=== PATIENT | female | born 1945 | race Caucasian/White ===

== ENCOUNTER 2017-06-03 08:43 | Emergency (ER) | payer MEDICARE, OTHER ==
[~2017-06-03] VITALS: Ht 157.5 cm; Wt 91.7 kg
[~2017-06-03 08:43] MED LIST: AC500T PO; ACIPHEX 20MG PO; ALB0.5V INH; ALBU8.5H2 IH; ALLO100T PO; ALPR.5T PO; AMOX1TAB11 PO; ASP325TEC; ASP81TEC PO; ASPI-892 PO; BIOT5TAB PO; BPR150TCR; BUPR300T; Biotin; CARV12.52; CARV3.12 PO; CARV6.25; CHLO473M4 MM; CLC500CT PO; CLD600T PO; CLPD75T; CLPD75T PO; COREG CR; CRESTOR; CRESTOR40 MG PO; DCS100C PO; DESV100T PO; DRON400T PO; DRON400T2 PO; ESCT10T; ESTRADIAL; FENT1PAT59 TD; FLUT12AE4 IH; FLUT16SP22 NSEACH; FRSM40T; FURO20TA4 PO; FURO40TA4 PO; Fluticasone Propionate NS; GLUC-113 PO; HYDR-2890 PO; HYDR-3458 PO; HYDR-753 PO; IBAN150T5 PO; IBP800T; IBP800T PO; ISOS30TA3 PO; LACT1CAP62 PO; LD5O35 TP; LEVO750T9 PO; LVT.1T; LVT.1T PO; MAGN400C PO; MELO15TA39 PO; MGX400T PO; MULT1TAB63; MULT1TAB63 PO; NEBI2.5T5 PO; NIAC1000 PO; NIAC1TBM21 PO; NIACIN; NPD5OP OS; OMG1KC PO; POTA10TA36 PO; POTA20PA3 PO; POTA20TA15 PO; POTA40LI PO; POTASSIUM; PRED10TA PO; PROP1TAB77; PROP1TAB77 PO; PSEUDOEPHEDRINE PO; Prednisone PO; QUIN324C PO; RIVA20TA PO; RMP5C; ROSU20TA14 PO; RT-ADVAIR1 IH; RT-ALBUINH IH; TRAM-21 PO; TRM50T; ZALE10CA PO; [UNRECOGNIZED DRUG - OTHER]; [UNRECOGNIZED DRUG - OTHER]; [UNRECOGNIZED DRUG - OTHER] PO; acidophilus; calcium; vytorin
[2017-06-03] MEDS ORDERED: RT-ALBUTEROL/IPRATROPIUM 3 ML (DUONEB) VIAL INH ONE (09:00)
[2017-06-03 09:06] LABS: BASOPHILS % (AUTO) 0 % (0-10); EOSINOPHILS # (AUTO) 0.3 10^3/uL (0.0-0.3); EOSINOPHILS % (AUTO) 4 % (0-10); LYMPHOCYTES # (AUTO) 1.7 X 10^3 (1.0-4.0); LYMPHOCYTES % (AUTO) 23 % (12-44); MEAN CORPUSCULAR HEMOGLOBIN 31 PG (25-34); MEAN CORPUSCULAR HGB CONC 33 G/DL (32-36); MEAN CORPUSCULAR VOLUME 93 FL (80-99); MEAN PLATELET VOLUME 9.7 FL (7.4-10.4); MONOCYTES # (AUTO) 0.7 X 10^3 (0.0-1.0); MONOCYTES % (AUTO) 10 % (0-12); NEUTROPHILS # (AUTO) 4.6 X 10^3 (1.8-7.8); NEUTROPHILS % (AUTO) 62 % (42-75); PLATELET COUNT 178 10^3/uL (130-400); RED BLOOD COUNT 3.95 10^6/uL (4.35-5.85); WHITE BLOOD COUNT 7.4 10^3/uL (4.3-11.0)
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
[2017-06-03 09:17] LABS: INR 1.6 (0.8-1.4); PROTHROMBIN TIME PATIENT 18.3 SEC (12.2-14.7)
[2017-06-03] MEDS ORDERED: RT-ALBUTEROL SULF 2.5 MG/3 ML PRE-MIX VIAL INH STA ×2 (09:22→09:38)
[2017-06-03 09:26] LABS: BILIRUBIN,TOTAL 0.5 MG/DL (0.1-1.0); CALCIUM 9.7 MG/DL (8.5-10.1); CREATININE SERUM 1.46 MG/DL (0.60-1.30); POTASSIUM 3.7 MMOL/L (3.6-5.0); TOTAL PROTEIN 6.8 GM/DL (6.4-8.2)
--- NOTE | 2017-06-03 09:26 | Diagnostic Imaging Report ---
Portable upright radiograph of the chest. INDICATION: Shortness of breath and cough. FINDINGS: The lungs are clear. The heart size is moderately enlarged. No effusion or pneumothorax. The mediastinum and cheri appear unremarkable. Sternotomy wires and post CABG changes are seen. IMPRESSION: Cardiomegaly. No significant vascular congestion. Dictated by: Dictated on workstation # [id number]
[2017-06-03] MEDS ORDERED: DEXAMETHASONE 4 MG/ML SDV (DECADRON) IH ONE (09:45)
[2017-06-03 11:00] LABS: BILIRUBIN,URINE NEGATIVE (NEGATIVE); KETONES,URINE NEGATIVE (NEGATIVE); LEUKOCYTE ESTERASE ,URINE 1+ (NEGATIVE); NITRITE,URINE NEGATIVE (NEGATIVE); PH,URINE 7 (5-9); PROTEIN,URINE NEGATIVE (NEGATIVE); UROBILINOGEN,URINE NORMAL (NORMAL)
[2017-06-03 11:14] LABS: WBC,URINE RARE /HPF
[2017-06-03 11:15] LABS: SQUAMOUS EPITHELIAL CELL,UR RARE /HPF
[2017-06-03] MEDS ORDERED: PRD20T PO (11:54)
[2017-06-03] MEDS ORDERED: LEVO500T80 PO (11:54)
[2017-06-03 12:03] VITALS: BP 114/52
[2017-06-03] MEDS ORDERED: CEFD300C3 PO (12:03)
== END 2017-06-03 12:03 | disposition home or self-care (01) ==
LOC: EDUNIT# 08:43 → ER 08:45
DX: J01.90 Acute sinusitis, unspecified (principal); J40 Bronchitis, not specified as acute or chronic; F32.9 Major depressive disorder, single episode, unspecified; E03.9 Hypothyroidism, unspecified; M81.0 Age-related osteoporosis without current pathological fracture; K21.9 Gastro-esophageal reflux disease without esophagitis; I25.10 Atherosclerotic heart disease of native coronary artery without angina pectoris; I48.91 Unspecified atrial fibrillation; J44.9 Chronic obstructive pulmonary disease, unspecified; Z95.1 Presence of aortocoronary bypass graft; Z90.710 Acquired absence of both cervix and uterus; Z96.649 Presence of unspecified artificial hip joint; Z86.73 Personal history of transient ischemic attack (TIA), and cerebral infarction without residual deficits; Z87.442 Personal history of urinary calculi; Z96.651 Presence of right artificial knee joint; Z87.2 Personal history of diseases of the skin and subcutaneous tissue; Z87.891 Personal history of nicotine dependence
CPT/HCPCS: 36415; 71010; 80053; 81000; 83605; 85025; 85610; 85730; 87040; 93005; 94640

== ENCOUNTER 2017-09-04 12:37 | Emergency (ER) | payer MEDICARE, OTHER ==
[~2017-09-04] VITALS: Ht 157.5 cm; Wt 91.7 kg
[~2017-09-04 12:37] MED LIST changes: +CEFD300C3 PO; +LEVO500T80 PO; +PRD20T PO; +fentaNYL INJECTION 100 MCG/2 ML AMP ONE
[2017-09-04] MEDS ORDERED: NS IV 1000 ML 1,000 ML IV ONE (12:42)
[2017-09-04] MEDS ORDERED: fentaNYL INJECTION 100 MCG/2 ML AMP IVP STA ×2 (12:42→13:08)
--- OUTSIDE RECORDS SUMMARY | 2017-09-04 12:44 | XMS REPORT | Continuity of Care Document ---
Author Author [employer] Organization [facility] Address Unknown Phone Unavailable Care Team Providers Care Vp Clinical Name Role Phone [employer] Unavailable Unavailable Problems Medications Allergies, Adverse Reactions, Alerts Immunizations Results Vital Signs Encounters Location Location Details Encounter Type Encounter Number Reason For Visit Attending Provider ADM Date DC Date Status Source OUTPATIENT [id number] ANA FATIMA 05/24/2017 Active [facility] O Active [facility] Procedures Plan of Care Social History Assessment and Plan Family History Value Date Source Advance Directives Order Name Results Value Date Source
[2017-09-04] MEDS ORDERED: TETANUS,DIPTH,PERTUSS P/F (BOOSTRIX) 0.5 ML VIAL IM ONE (12:45)
--- OUTSIDE RECORDS SUMMARY | 2017-09-04 12:46 | XMS REPORT | Encounter Summary ---
Author Author [facility] Organization [facility] Address Unknown Phone Unavailable Care Team Providers Care Brick Cleaner Name Role Phone PCP Unavailable Reason for Visit * Reason Comments Medication Follow-up Encounter Details Date Type Department Care Team Description 09/02/2017 Telephone [facility] Cardiology Ana Thomas RN Medication Follow-up [id number] [place] [address] Social History Tobacco Use Types Packs/Day Years Used Date Former Smoker Quit: 02/01/2007 Smokeless Tobacco: Never Used Alcohol Use Drinks/Week oz/Week Comments No Sex Assigned at Date Recorded Not on file as of this encounter Functional Status Functional Status Response Date of Assessment Does the patient have a hearing impairment: No 07/10/2016 Does the patient have a visual impairment: Yes 07/10/2016 Does the patient have impaired ambulation: No 07/10/2016 Does the patient have an activity of daily living No 07/10/2016 (ADL) impairment: Does the patient have an instrumental activity of No 07/10/2016 daily living (IADL) impairment: Cognitive Status Response Date of Assessment Does the patient have a cognitive impairment: No 07/10/2016 as of this encounter Miscellaneous Notes * Telephone Encounter - Ana Thomas RN - 09/02/2017 12:37 PM FISH FARM MANAGER Formatting of this note may be different from the original. Yolette Biswas Nurse Ep Patient reports she is doing good. Called patient back. She stated that she is taking Multaq and Xarelto and is doing well. She has cut Imdur in half to 15 mg daily because her excel analyst was concerned about her low BP, she has had no increase in chest pain since decreasing Imdur dose. Will notify MPE of this. * Telephone Encounter - Ana Thomas RN - 09/02/2017 7:57 AM FISH FARM MANAGER LM for patient to call back. Will need to send MPE a text page once patient calls back. * Telephone Encounter - Ana Thomas RN - 09/02/2017 7:57 AM FISH FARM MANAGER Formatting of this note may be different from the original. ----- Message from Tom Miller MD sent at 09/01/2017 5:31 PM FISH FARM MANAGER ----- Please call pt and see how she is doing re: Her prior long-standing diarrhea. Also please see if she is taking Multaq or not. Then please text page me to let me know if Ms. Huber is taking the Multaq or not. Thank you. Tmo Miller MD P [facility] Nurse Ep This is the second message I have sent re: Pt--please see prior one before calling her. But when she is called please also inquire re: Her anticoagulation--still on Xarelto. Thank you--please text page me the response. in this encounter Plan of Treatment Not on fileas of this encounter Visit Diagnoses Not on filein this encounter
--- OUTSIDE RECORDS SUMMARY | 2017-09-04 12:46 | XMS REPORT | Clinical Summary ---
Author Author [facility] Organization [facility] Address Unknown Phone Unavailable Care Team Providers Care Curriculum Designer Name Role Phone PCP Unavailable Source Comments Some departments are not documenting in the electronic medical record. If you do not see the information that you expected, contact Release of Information in the Health Information Management department at [phone] for further assistance in locating additional records.[facility] Allergies Active Allergy Reactions Severity Noted Date Comments Niacin HIVES, RASH Medium 03/06/2016 Clarithromycin HIVES 03/24/2014 Erythromycin HIVES 03/24/2014 Current Medications Prescription Sig. Disp. Refills Start End Date Status Date ibandronate(+) (BONIVA) Take 150 mg by mouth Active 150 mg tablet every 30 days. levothyroxine (SYNTHROID) Take 50 mcg by mouth Active 100 mcg tablet daily. MULTIVITAMIN PO Take 1 Tab by mouth Active daily. nebivolol (BYSTOLIC) 2.5 Take 2.5 mg by mouth Active mg tab tablet daily. rosuvastatin (CRESTOR) 40 Take 40 mg by mouth Active mg tablet daily. dronedarone (MULTAQ) 400 Take 1 Tab by mouth twice 180 Tab 3 05/17/20 Active mg tablet daily with meals. 14 isosorbide mononitrate SR Take 15 mg by mouth every Active (IMDUR) 30 mg tablet morning. rivaroxaban (XARELTO) 20 Take 1 Tab by mouth daily 30 Tab 1 09/28/20 Active mg tab tabletIndications: with dinner. 15 PAT (paroxysmal atrial tachycardia) (HCC), Palpitations magnesium oxide (MAG-OX) Take 1 Tab by mouth twice 60 Tab 0 12/23/19 Active 400 mg tabletIndications: daily. 16 Palpitations, PAT (paroxysmal atrial tachycardia) ([facility]) allopurinol (ZYLOPRIM) Take 300 mg by mouth Active 100 mg tablet daily. Take with food. duloxetine DR (CYMBALTA) Take 60 mg by mouth at Active 30 mg capsule bedtime daily. Active Problems Problem Noted Date CVA (cerebral vascular accident) ([facility]) 09/01/2017 Paroxysmal atrial fibrillation ([facility]) 09/01/2017 Coronary artery disease involving [place] coronary artery without angina 02/2017 pectoris Essential hypertension 09/01/2017 Acquired scoliosis 07/10/2016 Degenerative disc disease, lumbar 07/10/2016 Intermittent claudication ([facility]) 03/06/2016 Palpitations 09/27/2014 PAT (paroxysmal atrial tachycardia) ([facility]) 09/27/2014 Encounters Date Type Specialty Care Team Description 09/02/2017 Telephone Cardiology Ana Thomas RN Medication Follow- up 07/12/2017 Documentation Cardiology Yolette Lawler Labs Only ( Historical ) from Last 3 Months Family History Medical History Relation Name Comments Coronary Artery Disease Brother Coronary Artery Disease Father Heart Failure Mother Relation Name Status Comments Brother Alive Father Mother Social History Tobacco Use Types Packs/Day Years Used Date Former Smoker Quit: 02/01/2007 Smokeless Tobacco: Never Used Alcohol Use Drinks/Week oz/Week Comments No Sex Assigned at Date Recorded Not on file Last Filed Vital Signs Vital Sign Reading Time Taken Blood Pressure 108/62 05/24/2017 3:09 PM CDT Pulse 67 05/24/2017 3:09 PM CDT Temperature 36.4 C (97.6 F) 07/10/2016 11:46 AM CDT Respiratory Rate 18 07/10/2016 11:46 AM CDT Oxygen Saturation 98% 05/24/2017 3:09 PM CDT Inhaled Oxygen - - Concentration Weight 79.4 kg (175 lb 1.6 oz) 05/24/2017 3:09 PM CDT Height 157.5 cm (5' 2") 05/24/2017 3:09 PM CDT Body Mass Index 32.03 05/24/2017 3:09 PM CDT Plan of Treatment Health Maintenance Due Date Last Done Comments HEPATITIS C SCREENING 1945 PHYSICAL (COMPREHENSIVE) 1953 EXAM PERTUSSIS VACCINE 1957 TETANUS VACCINE 1963 BREAST CANCER SCREENING 1986 COLORECTAL CANCER 1996 SCREENING SHINGLES VACCINE 2006 OSTEOPOROSIS SCREENING 2011 PREVNAR/PNEUMOVAX (#1) 2011 INFLUENZA VACCINE 05/28/2017 Results * CBC (07/10/2017) Component Value Ref Range White Blood Cells 4.88 (L) 5.00 - 10.00 RBC 4.19 Hemoglobin 13.1 Hematocrit 39.6 MCV 94.5 MCH 31.3 (H) 27.0 - 31.0 MCHC 33.1 Platelet Count 181 MPV RDW 14.8 Specimen Performing Laboratory Blood OTHER OUTSIDE LAB * THYROID STIMULATING HORMONE-TSH (07/10/2017) Component Value Ref Range TSH 5.56 (H) Specimen Performing Laboratory Blood OTHER OUTSIDE LAB * LIPID PROFILE (07/10/2017) Component Value Ref Range Cholesterol 174 Triglycerides 73 HDL 74.0 LDL 85 VLDL Non HDL Cholesterol Cholesterol/HDL Ratio 2.4 Specimen Performing Laboratory Blood OTHER OUTSIDE LAB * COMPREHENSIVE METABOLIC PANEL (07/10/2017) Component Value Ref Range Sodium 142 Potassium 4.1 Chloride 103 CO2 31.0 Blood Urea Nitrogen 12 Creatinine 0.8 Glucose 94 Calcium 9.2 Total Protein 6.3 Total Bilirubin 0.6 Albumin 3.9 Alk Phosphatase 92 AST (SGOT) 20 ALT (SGPT) 14 eGFR Non 71 eGFR Anion Gap 12 Specimen Performing Laboratory [facility] [address] , [address] [place] [address] from Last 3 Months
--- OUTSIDE RECORDS SUMMARY | 2017-09-04 12:46 | XMS REPORT | Encounter Summary ---
Author Author [facility] Organization [facility] Address Unknown Phone Unavailable Care Team Providers Care Patient Information Coordinator Name Role Phone PCP Unavailable Reason for Visit * Reason Comments Labs Only Historical Encounter Details Date Type Department Care Team Description 07/12/2017 Documentation [facility] Yolette Lawler Labs Only (Historical ) [address] [place] [address] Social History Tobacco Use Types Packs/Day Years [...] impairment: No 07/10/2016 as of this encounter Plan of Treatment Not on fileas of this encounter Results * THYROID STIMULATING HORMONE-TSH (07/10/2017) Component Value Ref Range TSH 5.56 (H) Specimen Performing Laboratory Blood OTHER OUTSIDE LAB * CBC (07/10/2017) Component Value Ref Range [...] 12 Specimen Performing Laboratory Blood [facility] [employer] [address] [facility] , [address] [place] [address] in this encounter Visit Diagnoses Not on filein this encounter
[2017-09-04 12:53] LABS: BASOPHILS % (AUTO) 1 % (0-10); EOSINOPHILS # (AUTO) 0.3 10^3/uL (0.0-0.3); EOSINOPHILS % (AUTO) 5 % (0-10); LYMPHOCYTES # (AUTO) 2.4 X 10^3 (1.0-4.0); LYMPHOCYTES % (AUTO) 41 % (12-44); MEAN CORPUSCULAR HEMOGLOBIN 31 PG (25-34); MEAN CORPUSCULAR HGB CONC 32 G/DL (32-36); MEAN CORPUSCULAR VOLUME 96 FL (80-99); MEAN PLATELET VOLUME 9.4 FL (7.4-10.4); MONOCYTES # (AUTO) 0.6 X 10^3 (0.0-1.0); MONOCYTES % (AUTO) 11 % (0-12); NEUTROPHILS # (AUTO) 2.6 X 10^3 (1.8-7.8); NEUTROPHILS % (AUTO) 44 % (42-75); PLATELET COUNT 204 10^3/uL (130-400); RED CELL DISTRIBUTION WIDTH 14.1 % (10.0-14.5); WHITE BLOOD COUNT 5.9 10^3/uL (4.3-11.0)
[2017-09-04 13:02] LABS: INR 1.2 (0.8-1.4); PROTHROMBIN TIME PATIENT 15.2 SEC (12.2-14.7)
[2017-09-04 13:10] LABS: ALANINE AMINOTRANSFERASE 22 U/L (0-55); ANION GAP 8 MMOL/L (5-14); ASPARTATE AMINO TRANSFERASE 26 U/L (5-34); BILIRUBIN,TOTAL 0.4 MG/DL (0.1-1.0); BLOOD UREA NITROGEN 21 MG/DL (7-18); BUN/CREATININE RATIO 21; CALCIUM 9.4 MG/DL (8.5-10.1); CARBON DIOXIDE 29 MMOL/L (21-32); CHLORIDE 104 MMOL/L (98-107); CREATININE SERUM 1.02 MG/DL (0.60-1.30); GFR ESTIMATED 54; GLUCOSE 100 MG/DL (70-105); MAGNESIUM 1.7 MG/DL (1.8-2.4); POTASSIUM 4.2 MMOL/L (3.6-5.0); SODIUM 141 MMOL/L (135-145); TOTAL PROTEIN 6.9 GM/DL (6.4-8.2)
--- NOTE | 2017-09-04 13:24 | Diagnostic Imaging Report ---
INDICATION: Puncture wound from a fall. Portable chest 12:45 PM. Imaging includes most of the left lung and part of the right lung. Patient has had prior CABG surgery. There appear to be multiple old healed fractures of the left posterolateral thoracic cage. There is no effusion or pneumothorax seen. IMPRESSION: Negative limited chest. Dictated by: Dictated on workstation # [id number]
[2017-09-04 13:29] LABS: TROPONIN I < 0.30 NG/ML (<0.30)
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
[2017-09-04] MEDS ORDERED: HYDROmorphone (DILAUDID) 2 MG/ML VIAL ONE (14:32)
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
[2017-09-04 15:20] VITALS: BP 130/82
--- NOTE | 2017-09-04 15:30 | Diagnostic Imaging Report ---
INDICATION: Chest pain. EXAMINATION: Portable chest at 3:06 PM. FINDINGS: There is a left thoracostomy tube in place. There are postop changes from CABG surgery. The heart size is normal. The pulmonary vascularity is mildly increased. IMPRESSION: Expiratory chest. There may be mild pulmonary venous hypertension. Dictated by: Dictated on workstation # [id number]
[2017-09-04] MEDS ORDERED: HYDROmorphone (DILAUDID) 2 MG/ML VIAL IVP ONE ×2 (17:15)
[2017-09-04] MEDS ORDERED: HYDROmorphone (DILAUDID) 2 MG/ML VIAL IVP PRN (17:15)
[2017-09-04] MEDS ORDERED: fentaNYL INJECTION 100 MCG/2 ML AMP IVP ONE (17:15)
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
== END 2017-09-04 15:20 | disposition short-term general hospital (02) ==
LOC: EDUNIT# 12:37 → ER 12:38
DX: S27.2XXA Traumatic hemopneumothorax, initial encounter (principal); S11.83XA Puncture wound without foreign body of other specified part of neck, initial encounter; I48.91 Unspecified atrial fibrillation; I25.10 Atherosclerotic heart disease of native coronary artery without angina pectoris; J44.9 Chronic obstructive pulmonary disease, unspecified; E03.9 Hypothyroidism, unspecified; F32.9 Major depressive disorder, single episode, unspecified; K21.9 Gastro-esophageal reflux disease without esophagitis; M81.0 Age-related osteoporosis without current pathological fracture; Z87.19 Personal history of other diseases of the digestive system; Z87.442 Personal history of urinary calculi; Z95.1 Presence of aortocoronary bypass graft; Z86.73 Personal history of transient ischemic attack (TIA), and cerebral infarction without residual deficits; Z87.2 Personal history of diseases of the skin and subcutaneous tissue; Z90.710 Acquired absence of both cervix and uterus; Z96.651 Presence of right artificial knee joint; Z87.891 Personal history of nicotine dependence; Z82.49 Family history of ischemic heart disease and other diseases of the circulatory system; W18.09XA Striking against other object with subsequent fall, initial encounter
CPT/HCPCS: 32551; 36415; 70491; 71010; 71260; 80053; 83735; 84439; 84443; 84484; 85025; 85610; 85730; 86850; 86900; 86901; 90471; 90715; 93005; 93041; 96361; 96374; 96375; 96376

== ENCOUNTER 2017-10-25 14:00 | Emergency (ER) | payer MEDICARE, OTHER ==
[~2017-10-25] VITALS: Ht 162.6 cm; Wt 72.6 kg
[~2017-10-25 14:00] MED LIST changes: -fentaNYL INJECTION 100 MCG/2 ML AMP ONE
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
--- OUTSIDE RECORDS SUMMARY | 2017-10-25 14:07 | XMS REPORT | Continuity of Care Document ---
Author Author [facility] Organization [facility] Address Unknown Phone Unavailable Care Team Providers Care Customs Agent Name Role Phone [employer] Unavailable Unavailable Problems Medications Allergies, Adverse Reactions, Alerts Immunizations Results Vital Signs Encounters Location Location Details Encounter Type Encounter Number Reason For Visit Attending Provider ADM Date DC Date Status Source OUTPATIENT [id number] ANA FATIMA 05/24/2017 Active [facility] INPATIENT [id number] GAVINO LOVELL 09/04/2017 Active [facility] O 09/06/2017 Active [facility] Procedures Plan of Care Social History Assessment and Plan Family History Value Date Source Advance Directives Order Name Results Value Date Source
--- OUTSIDE RECORDS SUMMARY | 2017-10-25 14:08 | XMS REPORT | Encounter Summary ---
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 09/07/2017 [place] [address] [place] [address] [phone] W Gavino garcia MD [address] [place] [address] [phone] Social History Tobacco Use Types Packs/Day Years Used Date Former Smoker Quit: 02/01/2007 Smokeless Tobacco: Never Used Alcohol Use Drinks/Week oz/Week Comments No Sex Assigned at Date Recorded Not on file as of this encounter Last Filed Vital Signs Vital Sign Reading Time Taken Blood Pressure 110/68 09/07/2017 8:02 AM [facility] OUT [facility] Pulse 72 09/07/2017 8:02 AM [facility] OUT [facility] Temperature 36.9 C (98.5 F) 09/07/2017 8:02 AM C[facility] OUT [facility]ER Respiratory Rate - - Oxygen Saturation 94% 09/07/2017 4:00 AM C[facility] OUT [facility]ER Inhaled Oxygen - - Concentration Weight 83.2 kg (183 lb 6.8 oz) 09/05/2017 11:00 AM [facility] OUT [facility] Height 160 cm (5' 3") 09/05/2017 11:00 AM C[facility] OUT [facility]ER Body Mass Index 32.49 09/05/2017 11:00 AM C[facility] OUT ST[facility]ER in this encounter Functional Status Functional Status Response [...] impairment: No 07/10/2016 as of this encounter Discharge Summaries * Neda Juarez MD - 09/07/2017 10:05 AM C[facility] OUT [facility]ER Formatting of this note may be different from the original. Physician Discharge Summary Name: Gem Noland Date Of : 1945 Age: 71 years Admit date: 09/04/2017 Discharge date: 09/07/2017 Attending Physician: Gavino Lovell MD Service: Surgery-Trauma Physician Summary completed by: Neda Juarez MD Reason for hospitalization: penetrating trauma to neck Significant PMH: Past Medical History: Diagnosis Date Arrhythmia Atrial fibrillation (HCC) CAD (coronary artery disease) HTN (hypertension) Allergies: Erythromycin base; Niaspan [niacin]; Penicillins; Biaxin [ clarithromycin]; Erythromycin; and Levaquin [levofloxacin] Admission Physical Exam notable for: Physical Exam Constitutional: She is oriented to person, place, and time. She appears well- developed and well-nourished. HENT: Head: Normocephalic and atraumatic. Right Ear: External ear normal. Left Ear: External ear normal. Eyes: EOM are normal. Pupils are equal, round, and reactive to light. Neck: Trachea normal and normal range of motion. Neck supple. No JVD present. No tracheal tenderness present. No rigidity. No tracheal deviation, no edema and no erythema present. Cardiovascular: Normal rate and normal heart sounds. Pulses: Radial pulses are 2+ on the right side, and 2+ on the left side. Dorsalis pedis pulses are 2+ on the right side, and 2+ on the left side. Pulmonary/Chest: Effort normal and breath sounds normal. No stridor. Left sided chest tube in place. Abdominal: Soft. She exhibits no distension. There is no tenderness. There is no rigidity and no guarding. Musculoskeletal: Left knee: She exhibits decreased range of motion. She exhibits no swelling. Tenderness found. Neurological: She is alert and oriented to person, place, and time. She has normal strength. No cranial nerve deficit or sensory deficit. Skin: Skin is warm and dry. Psychiatric: She has a normal mood and affect. Admission Lab/Radiology studies notable for: Esophogram- No esophageal leak identified. Chest x-ray revealed left-sided rib fractures and L pneumothorax Brief Hospital Course: Patient is a 71-year-old female presented from an outside hospital after sustaining a penetrating trauma to the neck. 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 She removed the pole with the primary complaint of pain. She states she also fell likely on her left side. She denied any loss of consciousness. She is brought to an outside hospital which revealed a left pneumothorax which was managed with a chest tube. Chest x-ray revealed left-sided rib fractures. Since admission she has not had any significant respiratory distress, though she does complain of pain with deep inspirations. She also fell on her side and injured her left knee though are no gross deformities noted besides swelling. She had a chest tube placed. Work-up has revealed no trauma to trachea, esophagus or surrounding vasculature. She was discharged home in stable condition. Condition at Discharge: Stable Discharge Diagnoses: Hospital Problems Active Problems Penetrating trauma Trauma of soft tissue of neck Left knee pain Pneumothorax Rib fracture Surgical Procedures: None Significant Diagnostic Studies and Procedures: noted in brief hospital course Consults: Anesthesiology Patient Disposition: Home Patient instructions/medications: Activity as Tolerated It is important to keep increasing your activity level after you leave the hospital. Moving around can help prevent blood clots, lung infection (pneumonia ) and other problems. Gradually increasing the number of times you are up moving around will help you return to your normal activity level more quickly. Continue to increase the number of times you are up to the chair and walking daily to return to your normal activity level. Begin to work toward your normal activity level at discharge Report These Signs and Symptoms Please contact your doctor if you have any of the following symptoms: temperature higher than 100 degrees F, uncontrolled pain, persistent nausea and/ or vomiting, difficulty breathing, chest pain, severe abdominal pain, unable to urinate, unable to have bowel movement or drainage with a foul odor Questions About Your Stay For questions or concerns regarding your hospital stay. Call [phone] Discharging attending physician: GAVINO LOVELL [[id number]] Regular Diet You have no dietary restriction. Please continue with a healthy balanced diet. Current Discharge Medication List START taking these medications Details acetaminophen (TYLENOL) 325 mg tablet Take 2 tablets by mouth every 6 hours as needed. Indications: PAIN Qty: 30 tablet, Refills: 0 PRESCRIPTION TYPE: Normal oxyCODONE (ROXICODONE, OXY-IR) 5 mg tablet Take 1-2 tablets by mouth every 6 hours as needed Earliest Fill Date: 09/07/17 Qty: 30 tablet, Refills: 0 PRESCRIPTION TYPE: Print senna/docusate (SENOKOT-S) 8.6/50 mg tablet Take 1 tablet by mouth twice daily for 30 days. Qty: 60 tablet, Refills: 0 PRESCRIPTION TYPE: Normal CONTINUE these medications which have NOT CHANGED Details albuterol (PROAIR HFA, VENTOLIN HFA, OR PROVENTIL HFA) 90 mcg/actuation inhaler Inhale 2 puffs by mouth into the lungs every 6 hours as needed for Wheezing or Shortness of Breath. Shake well before use. PRESCRIPTION TYPE: Historical Med allopurinol (ZYLOPRIM) 100 mg tablet Take 300 mg by mouth daily. Take with food. PRESCRIPTION TYPE: Historical Med amitriptyline (ELAVIL) 25 mg tablet Take 12.5 mg by mouth at bedtime as needed. PRESCRIPTION TYPE: Historical Med Cholecalciferol (Vitamin D3) 2,000 unit cap Take 1 capsule by mouth daily. PRESCRIPTION TYPE: Historical Med dronedarone (MULTAQ) 400 mg tablet Take 1 Tab by mouth twice daily with meals. Qty: 180 Tab, Refills: 3 PRESCRIPTION TYPE: Print duloxetine DR (CYMBALTA) 60 mg capsule Take 60 mg by mouth daily. PRESCRIPTION TYPE: Historical Med ferrous sulfate (FEOSOL, FEROSUL) 325 mg (65 mg iron) tablet Take 325 mg by mouth daily. Take on an empty stomach at least 1 hour before or 2 hours after food. PRESCRIPTION TYPE: Historical Med HYDROcodone/acetaminophen(+) (NORCO) 10/325 mg tablet Take 1 tablet by mouth every 6 hours as needed for Pain PRESCRIPTION TYPE: Historical Med ibandronate(+) (BONIVA) 150 mg tablet Take 150 mg by mouth every 30 days. PRESCRIPTION TYPE: Historical Med isosorbide mononitrate SR (IMDUR) 30 mg tablet Take 15 mg by mouth every morning. PRESCRIPTION TYPE: Historical Med krill oil 500 mg cap Take 500 mg by mouth twice daily with meals. PRESCRIPTION TYPE: Historical Med levothyroxine (SYNTHROID) 100 mcg tablet Take 50 mcg by mouth daily. PRESCRIPTION TYPE: Historical Med magnesium oxide (MAG-OX) 400 mg tablet Take 1 Tab by mouth twice daily. Qty: 60 Tab, Refills: 0 PRESCRIPTION TYPE: Normal Associated Diagnoses: Palpitations; PAT (paroxysmal atrial tachycardia) (HCC) MULTIVITAMIN PO Take 1 Tab by mouth daily. PRESCRIPTION TYPE: Historical Med nebivolol (BYSTOLIC) 2.5 mg tab tablet Take 2.5 mg by mouth daily. PRESCRIPTION TYPE: Historical Med rivaroxaban (XARELTO) 20 mg tab tablet Take 1 Tab by mouth daily with dinner. Qty: 30 Tab, Refills: 1 PRESCRIPTION TYPE: Normal Comments: New start, please fill today and contact patient. Associated Diagnoses: PAT (paroxysmal atrial tachycardia) (HCC); Palpitations rosuvastatin (CRESTOR) 40 mg tablet Take 40 mg by mouth daily. PRESCRIPTION TYPE: Historical Med Scheduled appointments: You may follow-up in the [facility] on an as needed basis. Please call if you would like to schedule an appointment or with any questions or concerns. 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 Rib Fracture You broke one or more ribs. This is called a rib fracture. Rib fractures do not require a cast like other bones. They will heal by themselves in about 4-6 weeks. The first 3-4 weeks will be the most painful because deep breathing, coughing, or changing position from sitting to lying down, may cause the broken ends to move slightly. Home care Rest. You should not be doing any heavy lifting or strenuous exertion until the pain goes away. It hurts to breathe when you have a broken rib. This puts you at risk of getting pneumonia from poor airflow through your lungs. To prevent this: Takeseveralvery deep breathsonce an hour while you're awake. Exhale through pursed lips as if you are blowing up a balloon.If possible, actually blow up a balloon or a rubber glove.This exercise builds up pressure inside the lung and prevents collapse of the small air sacs of the lung. This exercise may cause some pain at the site of injury, which is normal. You may have gotten a breathing exercise device called an incentive spirometer. Use it at least 4 times a day, or as directed. Apply an ice pack over the injured area for 15 to 20 minutes every1 to 2 hours. You should do this forthe first24 to 48 hours.You can make an ice pack by filling a plastic bag that seals at the top with ice cubes and then wrapping it with a thin towel. Continue with ice packsas needed for the relief of pain and swelling. You may tnhxdlv-fre-rsrjami pain medicineto control pain, unless another pain medicine was prescribed.If you have chronic liver or kidney disease or ever had a stomach ulcer or GI bleeding, talk with your healthcare provider beforeusing these medicines. If your pain is not controlled, contact your healthcare provider. Sometimes a stronger pain medicine may be needed. A nerve block can be done in case of severe pain. It will numb the nerve between the ribs. Follow-up care Follow up with your healthcare provider, or as advised. Rarely, a broken rib will cause complications within the first few days that may not be evident during your initial exam. This can include collapsed lung, bleeding around the lung or into the abdomen, or pneumonia. Therefore, watch for the signs below. If X-rays were taken,you will be told of any new findings that may affect your care. Call 911 Call 911 if you have: Dizziness, weakness or fainting Shortness of breath with or without chest discomfort New or worsening abdominal pain Discomfort in other areas of your upper body such as your shoulders, jaw, neck, or arms When to seek medical advice Call your healthcare provider right away if any of these occur: Increasing chest pain with breathing Fever of 100.4F (38C) or above lasting for 24 to 48 hours Congested cough Date Last Reviewed: 09/29/201519990591-8310 [employer]. [address] [place] [address]. All rights reserved. This information is not intended as a substitute for professional medical care. Always follow your healthcare professional's instructions. Medicine for Pain Medicines can help to block pain, decrease inflammation, and treat related problems. More thanone medicine may be usedto treat your pain. Medicines may be changed as you feel better, or if they cause side effects. Medicines What they do Possible side effects Non-opioid NSAIDs, aspirin, acetaminophen Reduce pain chemicals at the site of pain.NSAIDs canreduce joint and soft tissue inflammation. Nausea, stomach pain, ulcers, indigestion, bleeding, kidney, and liver problems. Certain NSAIDs may increase the risk for cardiovascular disease in some people. Talk with your healthcare provider. Opioids (morphine and similar medicines often called narcotics) Reduce feelings or perception of pain. Used for moderate to severe pain. Nausea, vomiting, itching,drowsiness, constipation, slowed breathing Other medicines (corticosteroids, antinausea, antidepressant, and antiseizure medicines) Reduce swelling, burning or tingling pain, orcertain side effects of pain medicines, such as nausea or vomiting Your healthcare provider will explain the possible side effects of these medicines. Anesthetics (local, injected) include lidocaine, benzocaine, and medicines used by anesthesiologists Stop pain signals from reaching the brain by blocking feeling in the treated area Nausea, low blood pressure, fever, slowed breathing , fainting, seizures, heart attack When to call the healthcare provider Call your healthcare provider right away (or have a family member call) if you have: Unrelieved pain Side effects, including constipation or uncontrolled nausea, that interfere with daily activities If you have extreme sleepiness or breathing problems, call 911. Other precautions Ask your healthcare provider or pharmacist how to get rid of your pain medicines safely when you stop using them. Never share your pain medicines with anyone. Store your medicines in a safe place so they cant be stolen. If you think your medicine has been stolen or lost, tell your healthcare provider right away. Date Last Reviewed: 02/25/201719991389-0949 [employer]. [address] [place], [place] [id number]. All rights reserved. This information is not intended as a substitute for professional medical care. Always follow your healthcare professional's instructions. Fall Due toDizziness, Weakness, or Loss of Balance The symptoms that led to your fall have been evaluated. Your doctor feels it is safe for you to return home. Many things can cause you to become dizzy. Everyone means a little something different by the word dizzy. People may describe their symptoms using these words: It doesnt feel right inmy head It feels like spinning inmy head It seems like the room is spinning My balance feels off I feel lightheaded, like I am going to pass out All these descriptions can have real causes. Your balance mechanism is in your inner ear. Anything disturbing it can make you feel dizzy, whether it is from a cold, an injury, or many other things. Anything that causes your blood pressure to drop suddenly can make you feel lightheaded, or like you are going to faint. This is because at that moment there might not be enough blood flowing to your brain. Causes include: Medicines Dehydration Standing up or bending over too quickly Becoming overheated Taking a hot shower or bath Straining hard while lifting something or using the toilet Strokes, heart attack, heart valve disease, very slow or very fast heart rate Low blood sugar Ear infection Hyperventilation Anemia Trauma Infection Panic attack You may be at risk of repeat falls. Take precautions described below to prevent another fall. Home care If you become lightheaded or dizzy, lie down immediately or sit and lean forward with your head down. It is better to do this than fall and seriously hurt or injure yourself. Rest today. When changing position,take a moment to be sure any dizziness goes away before standing and walking. If you have been prescribed a walker, be sure to use it whenever you walk, even if it is a short distance. If you were injured during the fall, follow the advice from your doctor regarding care of your injury. Be sure your doctor knows all the medicines, herbs, and supplements you take. Some medicines can cause dizziness. Follow-up care Unless given other advice, call your doctor on the next office day to advise of your fall and to schedule an appointment. You may require further treatment for the underlying condition that caused todays fall. If X-ray or a CT scan were done, you will be notified of the results, especially if it affects treatment. Call 911 Call 911 if any of these occur: Trouble breathing Confused or difficulty arousing Fainting or loss of consciousness Rapid or very slow heart rate Seizure Difficulty with speech or vision, weakness of an arm or leg Difficulty walking or talking, loss of balance Numbness or weakness in one side of your body, facial droop When to seek medical advice Call your healthcare provider right away if any of the following occur: Another fall Continued dizzy spells Severe headache Blood in vomit or stools (black or red color) Date Last Reviewed: 09/01/201519996577-3978 [employer]. [address] [place] [address]. All rights reserved. This information is not intended as a substitute for professional medical care. Always follow your healthcare professional's instructions. Mechanical Fall You have had a fall today. It appears that the cause iswhat we call mechanical. That means that you slipped, tripped or lost your balance. If your fall had been due to fainting or a seizure,othertestsmight be required. It is normal to feel sore and tight in your muscles and back the next day, and not just the muscles you injured at first. Remember, all the parts of your body are connected, so while initially one area hurts, the next day another may hurt. Also, when you injure yourself, it causes inflammation, which then causes the muscles to tighten up and hurt more. After the initial worsening, it should gradually improve over the next few days. However, report more severe pain. Even without a definite head injury, you can still get a concussion from your head suddenly jerking forward, backward or sideways when falling. Concussions and even bleeding can still occur, especially if you have had a recent injury or take blood thinner medicine. It is not unusual to have a mild headache and feel tired and even nauseous or dizzy. Home care 1. Rest today and resume your normal activities when you are feeling back to normal. 2. If you were injured during the fall, follow the advice from your doctor regarding care of your injury. 3. At first, do not try to stretch out the sore spots. If there is a strain, stretching may make it worse. Massage may help relax the muscles without stretching them. 4. You can use an ice pack or cold compress on and off to the sore spots 10 to 20 at a time, as often as you feel comfortable. This may help reduce the inflammation, swelling and pain. 5. If you have any scrapes or abrasions, they usually heal [id number] days. It is important to keep the abrasions clean while they initially start to heal. However, an infection may occur even with proper care, so watch for early signs of infection. Medications Talk to your doctor before taking new medicines, especially if you have other medical problems or are taking other medicines. If you need anything for pain, you can take acetaminophen or ibuprofen, unless you were given a different pain medicine to use.Talk with your doctor before using these medicines if you have chronic liver or kidney disease, or ever had a stomach ulcer orgastrointestinal bleeding, or are taking blood thinner medicines. Be careful if you are given prescription pain medicines, narcotics, or medicine for muscle spasm. They can make you sleepy, dizzy and can affect your coordination, reflexes and judgment. Do not drive or do work where you can injure yourself when taking them. Fall prevention Was there anything that caused your fall that can be fixed, removed, or replaced? Make your home safe by keeping walkways clear of objects you may trip over. Use non-slip pads under rugs. Don't use smallarea rugs or throw rugs. Do not walk in poorly lit areas. Do not stand on chairs or wobbly ladders. Use caution when reaching overhead or looking upward. This position can cause a loss of balance. Be sure your shoes fit properly, have non-slip bottoms and are in good condition. Be cautious when going up and down curbs, and walking on uneven sidewalks. If your balance is poor, consider using a cane or walker. Stay as active as you can. Balance, flexibility, strength, and endurance all come from exercise. They all play a role in preventing falls. If you have pets, know where they are before you stand up or walk so you don' t trip over them. Limit alcohol intake. Alcohol can cause balance problems and increase the risk of falls. Use night lights. Follow-up Follow up with your doctor or as advised by our staff. If X-rays or CT scans were done, you will be notified if there is a change in the reading, especially if it affects treatment. Call 911 Call 911 if any of these occur: Trouble breathing Confused or difficulty arousing Fainting or loss of consciousness Rapid or very slow heart rate Seizure Difficulty with speech or vision, weakness of an arm or leg Difficulty walking or talking, loss of balance, numbness or weakness in one side of your body, facial droop When to seek medical advice Call your healthcare provider right away if any of these occur: Repeated mechanical falls, or unexplained falls Dizziness Severe headache Blood in vomit, stools (black or red color) Date Last Reviewed: 09/01/201519994142-5005 [employer]. [address] [place] [address], [place] [id number]. All rights reserved. This information is not intended as a substitute for professional medical care. Always follow your healthcare professional's instructions. Exercises to Prevent Falls Certain types of exercises may help make you less likely to fall. Try the ones below. Or do other exercises that your healthcare provider suggests. Depending on your health, you may need to start slowly. Don't let that stop you. Even small amounts of exercise can help you. Be sure to talk to your healthcare provider before starting any exercise program. Improve balance Many types of exercise can help improve balance.Wilma chi and yoga are good examples. Here's another one to try. You can do it anytime and almost anywhere. Stand next to a counter or solid support. Push yourself up onto your tiptoes. Hold for 5 seconds. If you start to lose your balance, hold on to the counter. Rest and repeat 5 times. Work up to holding for 20 to 30 seconds, if you can. Increase flexibility Being more flexible makes it easier for you to move around safely. Try exercises like the seated hamstring stretch. Sit in a chair and put one foot on a stool. Straighten your leg and reach with both hands down either side of your leg. Reach as far down your leg as you can. Hold for about 20 seconds. Go back to the starting position. Then repeat 5 times. Switch legs. Build strength "Resistance" exercises help build strength. You can do them without equipment. Or you can use weights, elastic bands, or special machines. One such exercise is called the biceps curl. You can hold a 1-pound weight or even a can of soup. Do this exercise at least 3 times a week. Strive for every day. Sit up straight in a chair. Keep your elbow close to your body and your wrist straight. Bend your arm, moving your handup to your shoulder. Then slowly lower your arm. Repeat 5 times. Switch to the other arm. Build your staying power Aerobic exercises make your heart andlungs stronger so you can keep moving longer. Walking and swimming are two of the best types of exercises you can do. Using a stationary bike is great, too. Find an aerobic exercise that you enjoy. Start slowly and build up. Even5 minutes is helpful. Aim for a goal of30 minutes, at [id number] a week. You don't have to [id number] in1 session. Break it up and walk a little throughout the day. More helpful tips Start easy. Slowly work up to doing more. Talk with your healthcareprovider about the best exercises for you. Call senior centers or healthclubs about exercise programs. If needed, have a family member watch you walk every so often to check your stability. Exercise with a friend. Choose an activity you both enjoy. Consider wilma chi or yoga to strengthen your balance. Try exercises that you can do anytime, anywhere. Here are2 examples. Have someone with you when you first try these: Practice walking by placing1 foot right in front of the other. Stand up and sit down10 times. Repeat this throughout the day. Date Last Reviewed: 02/25/201719991966-[address] [place] [place] [address]. All rights reserved. This information is not intended as a substitute for professional medical care. Always follow your healthcare professional's instructions. * Discharge Instr - Appointments - Neda Juarez MD - 09/07/2017 9:55 AM CUT OUT STITCHER You may follow-up in the [facility]uma Surgery [facility] on an as needed basis. Please call if you would like to schedule an appointment or with any questions or concerns. * Discharge Instr - Case Management - Magali Funk RN - 09/05/2017 1:57 PM CUT OUT STITCHER Prescription Drug Discount Resource https://www.Green Clean or go to Direct Hit from any mobile phone. Mention Mobile gathers current prices and discounts to help you find the lowest cost pharmacy for your prescriptions. [facility] is 100% free. No personal information required. Fall Prevention Program for Seniors The Stepping On program offers older people information, strategies and exercises to reduce falls and increase self-confidence in situations when they are at risk of falling. This program has been researched and proven effective in reducing falls in older people. Stepping On is designed specifically for anyone who is: 65 years or older Has had a fall in the past year Is fearful of falling Lives at home Does not have dementia For more information on the date, time and location of the next workshop please contact: Rodrigo [facility], Curator Of Education P: [phone] or [email or web address] Emails and phone calls will be returned within 1-2 days. in this encounter Medications at Time of Discharge Medication Sig. Disp. Refills Start Date End Date acetaminophen (TYLENOL) Take 2 tablets by mouth 30 tablet 0 2016 325 mg tabletIndications: every 6 hours as needed. PAIN Indications: PAIN albuterol (PROAIR HFA, Inhale 2 puffs by mouth VENTOLIN HFA, OR into the lungs every 6 PROVENTIL HFA) 90 hours as needed for mcg/actuation inhaler Wheezing or Shortness of Breath. Shake well before use. allopurinol (ZYLOPRIM) Take 300 mg by mouth 100 mg tablet daily. Take with food. amitriptyline (ELAVIL) 25 Take 12.5 mg by mouth at mg tablet bedtime as needed. Cholecalciferol (Vitamin Take 1 capsule by mouth D3) 2,000 unit cap daily. dronedarone (MULTAQ) 400 Take 1 Tab by mouth twice 180 Tab 3 2013 mg tablet daily with meals. duloxetine DR (CYMBALTA) Take 60 mg by mouth 60 mg capsule daily. ferrous sulfate (FEOSOL, Take 325 mg by mouth FEROSUL) 325 mg (65 mg daily. Take on an empty iron) tablet stomach at least 1 hour before or 2 hours after food. HYDROcodone/acetaminophen Take 1 tablet by mouth (+) (NORCO) 10/325 mg every 6 hours as needed tablet for Pain ibandronate(+) (BONIVA) Take 150 mg by mouth 150 mg tablet every 30 days. isosorbide mononitrate SR Take 15 mg by mouth every (IMDUR) 30 mg tablet morning. krill oil 500 mg cap Take 500 mg by mouth twice daily with meals. levothyroxine (SYNTHROID) Take 50 mcg by mouth 100 mcg tablet daily. magnesium oxide (MAG-OX) Take 1 Tab by mouth twice 60 Tab 0 2015 400 mg tabletIndications: daily. Palpitations, PAT (paroxysmal atrial tachycardia) (HCC) MULTIVITAMIN PO Take 1 Tab by mouth daily. nebivolol (BYSTOLIC) 2.5 Take 2.5 mg by mouth mg tab tablet daily. oxyCODONE (ROXICODONE, Take 1-2 tablets by mouth 30 tablet 0 2016 OXY-IR) 5 mg tablet every 6 hours as needed Earliest Fill Date: 09/07/17 rivaroxaban (XARELTO) 20 Take 1 Tab by mouth daily 30 Tab 1 2014 mg tab tabletIndications: with dinner. PAT (paroxysmal atrial tachycardia) (HCC), Palpitations rosuvastatin (CRESTOR) 40 Take 40 mg by mouth mg tablet daily. senna/docusate Take 1 tablet by mouth 60 tablet 0 09/07/20172016 (SENOKOT-S) 8.6/50 mg twice daily for 30 days. tablet as of this encounter Progress Notes * Analy Monson RN - 09/07/2017 10:38 AM CUT OUT STITCHER Gem Noland discharged on 09/07/2017. . Discharge instructions reviewed with patient and family. Valuables returned: . Home medications: . Functional assessment at discharge complete: Yes . RN went over discharge instructions with pt. Peripheral IV removed. Pt does not have any concerns at the time of discharge. Pt to leave unit via wheelchair with belongings. * Mike Menjivar MD - 09/07/2017 6:36 AM CUT OUT STITCHER Formatting of this note may be different from the original. Trauma Surgery Daily Progress Note Name: Gem Noland Today's Date: 09/07/2017 Admission Date: 09/04/2017 LOS: 3 days Subjective Gem Noland is a 71 y.o. female. No acute events overnight. Pain is well controlled. Pain only with palpation of the left side thorax. No complaints. A 12 point review of systems is negative unless noted above. Assessment/Plan09/07/2017 Patient had a penetrating trauma to neck with subsequent imaging revealing no injury to the esophagus or trachea. She had rib fractures and a chest tube placed and currently pain is under control. We will continue to manage her chest pain and monitor any developments of hemothorax or worsening of pneumothorax. Active Problems: Penetrating trauma Trauma of soft tissue of neck Left knee pain Pneumothorax Rib fracture 71yo female with penetrating injury to zone 1 of the neck, L rib fx, and left sided pneumothorax who is doing well with primary complaint of pleuritic chest pain. Neuro: Acute pain - PRN acetaminophen, oxy. Well controlled - q4h neuro checks CV: Hx of Afib - Monitor. Imdur 15 mg, Bystolic 2.5 mg, Multaq 400 mg BID, Crestor 40 mg - Hold CAMPGROUND HAND xarelto - F/u on medicine recs Resp: History of posterior rib fx left w/ pneumo s/p chest tube at OSH - Repeat 2 view CXR which demonstrates resolution and no effusion of pneumothorax. - NC, titrate Renal: H/o CKD - TAM w/ Creatinine of 1.55 FEN: - Replace lytes prn Heme and ID: - No acute concerns - Monitor - Daily labs GI: r/o esophageal injury from neck trauama - Esophagram negative for injuries - Regular diet - Senna Endo: - Hypothyroidism: synthroid restarted - Gout: allopurinol restarted Psych: - Cymbalata restarted MSK: - PT/OT - Left knee swelling. Xray negative. 2/2 gout, or other inflammatory process Ppx: SCDs, Lovenox 30 mg BID Dispo: Discharge home Active Hospital Problems Diagnosis Penetrating trauma Trauma of soft tissue of neck Left knee pain Pneumothorax Rib fracture Physical Exam Gen: A&Ox4 Head: Atraumatic Neck: Small penetrating laceration midline above the clavicles, no drainage Lungs: Lungs CTAB, Chest rises symmetrically Back: Tenderness to palpation of the left side Heart: Regular rate and rhythm Chest: Dressings over prior chest tube insertion site, pain to light palpation in the left chest laterally and posteriorly Ext: Left knee effusion with pain to active motion, no edema, pulses 2+ Objective Vital Signs: Last Filed Vital Signs: 24 Hour Range BP: 112/56 (09/07 400) Temp: 37.1 C (98.7 F) (09/07 400) Pulse: 72 (09/06 2016) Respirations: 14 PER MINUTE (09/06 2300) SpO2: 94 % (09/07 400) O2 Delivery: None (Room Air) (09/07 400) SpO2 Pulse: 76 (09/07 400) BP: (103-149)/(49-96) Temp: [36.7 C (98.1 F)-37.1 C (98.7 F)] Pulse: [70-80] Respirations: [14 PER MINUTE-18 PER MINUTE] SpO2: [93 %-99 %] O2 Delivery: None (Room Air) Intensity Pain Scale 0-10 (Pain 1): 4 (09/06/17 2100) Vitals: 09/04/17 1700 09/05/17 1100 Weight: 83.2 kg (183 lb 6.8 oz) 83.2 kg (183 lb 6.8 oz) Intake/Output Summary: (Last 24 hours) Intake/Output Summary (Last 24 hours) at 09/07/17 0636 Last data filed at 09/07/17 0600 Gross per 24 hour Intake 700 ml Output 685 ml Net 15 ml Stool Occurrence: 1 Medications Scheduled allopurinol (ZYLOPRIM) tablet 300 mg 300 mg Oral QDAY dronedarone (MULTAQ) tablet 400 mg 400 mg Oral BID w/meals duloxetine DR (CYMBALTA) capsule 60 mg 60 mg Oral QHS enoxaparin (LOVENOX) syringe 30 mg 30 mg Subcutaneous BID isosorbide mononitrate SR (IMDUR) tablet 15 mg 15 mg Oral QDAY levothyroxine (SYNTHROID) tablet 50 mcg 50 mcg Oral QDAY nebivolol (BYSTOLIC) tablet 2.5 mg 2.5 mg Oral QDAY rosuvastatin (CRESTOR) tablet 40 mg 40 mg Oral QDAY senna/docusate (SENOKOT-S) tablet 1 tablet 1 tablet Oral BID Prn acetaminophen Q6H PRN 650 mg at 09/07/17 0351, fentaNYL citrate PF Q1H PRN 50 mcg at 09/06/17 1650, loratadine QDAY PRN 10 mg at 09/06/17 2137, naloxone PRN, oxyCODONE Q4H PRN 10 mg at 09/07/17 0351 Labs 24-hour labs: Results for orders placed or performed during the hospital encounter of (from the past 24 hour(s)) CBC Collection Time: 09/07/17 3:36 AM Result Value Ref Range White Blood Cells 7.0 [...] K/UL MPV 7.5 7 - 11 FL BASIC METABOLIC PANEL Collection Time: 09/07/17 3:36 AM Result Value Ref Range Sodium 134 (L) 137 [...] MG/DL eGFR Non 33 (L) >60 mL/min eGFR 40 (L) >60 mL/min MAGNESIUM Collection Time: 09/07/17 3:36 AM Result Value Ref Range Magnesium 2.2 1.6 - 2.6 mg/dL PHOSPHORUS Collection Time: 09/07/17 3:36 AM Result Value Ref Range Phosphorus 3.8 2.0 - 4.0 MG/DL Radiology and other Diagnostics Review: Pertinent radiology reviewed. Mike Menjivar MD Associated attestation - Gavino Lovell MD - 09/07/2017 12:10 PM CUT OUT STITCHER Formatting of this note may be different from the original. ATTESTATION I personally performed the cai portions of the E/M visit, discussed case with resident and concur with resident documentation of history, physical exam, assessment, and treatment plan unless otherwise noted. Left rib fracture, left hemopneumothorax - pain controlled, hemoptx resolved by chest xray. Discharge home with pain control. Staff name: Gavino Lovell MD Date: 09/07/2017 * Ramesh Weiss, CHE - 09/06/2017 6:29 PM CUT OUT STITCHER Chest tube pulled, chest x-ray scheduled for 0600 tomorrow to re-evaluate. * Luis Angel Slade MD - 09/06/2017 3:05 PM CUT OUT STITCHER Formatting of this note may be different from the original. General Consult Note Admission Date: 09/04/2017 LOS: 2 days Reason for Consult: Multi-system disease; Geriatric patient Consult type: Opinion with orders Assessment/Plan Gem Noland is a 71 y.o. female with a pmhx of HTN, CAD with AR s/p 3 vessel CABG in 2006, Afib, depression, gout, osteoperosis, and hypothyroid who was admitted to from an OSH after sustaining a penetrating trauma to zone one of her throat with a tent post. Appears to be doing well. Pain tolerable and hemodynamically stable. Work-up has revealed to trauma to trachea, esophagus or surrounding vasculature. - HTN: CAMPGROUND HAND Nebivolol 2.5mg; well controlled - mildly hypotensive with good MAP's - CAD: CAMPGROUND HAND Rosuvastatin 40mg; Imdur 15mg; 3 vessel CABG in 2006 after AR - Afib: CAMPGROUND HAND Xarelto - held at this time given trauma - ?hx of ventricular tachyarrhythmias: CAMPGROUND HAND Multaq 400mg BID - Depression: CAMPGROUND HAND cymbalta 60mg - Osteoporosis: CAMPGROUND HAND ibandronate - Hypothyroid: CAMPGROUND HAND synthroid 50mg - Gout: CAMPGROUND HAND Allopurinol 300mg daily - TAM on ?CKD: Unsure of Cr baseline, not found in care everywhere. Acute rise in Cr from 1.04 to 1.56 today. Geriatric Assessment: Pt lives in a home with significant other. States that she is very functional at baseline and is able to care for herself. Able to make herself meals. Has fairly significant back pain at baseline which has progressed over the past year and has limited her day to day function unless she takes tylenol with codeine, which she does not like to do. Pt has a wheelchair, walker and cane at home that she uses intermittently when she feels she needs it. Has three stairs up into the house with a handrail to aid. No stairs in the house. Polypharmacy does not appear to be obvious concern as patient has very good follow-up with 4 doctors with whom she is very familiar. She allocates all medications for the week into a medication diaz which she then self administers. Has two previous mechanical falls within the last year. Recommendations: - Start NS infusion for total volume of 500 - 1000mL - Continue CAMPGROUND HAND Nevibolol for HTN; hold for systolic pressures < 90 - Continue CAMPGROUND HAND meds for CAD, depression, hypothyroid, arrhythmias and gout - Hold Xarelto until clear hemostasis is achieved - May benefit from outpatient PT; consider PT/OT consult S: Pt seen and examined this AM. States that she is feeling better today. Pain is under control. Denies any fever, chills, nausea, vomiting, CP, SOB or abdominal pain Vital Signs: Last Filed in 24 hours Vital Signs: 24 hour Range BP: 133/71 (09/06 1211) Temp: 36.7 C (98.1 F) (09/06 1211) Pulse: 72 (09/06 1432) Respirations: 18 PER MINUTE (09/06 1211) SpO2: 96 % (09/06 143) O2 Delivery: Nasal Cannula (09/06 1211) SpO2 Pulse: 75 (09/06 1211) BP: (99-133)/(54-74) Temp: [36.7 C (98.1 F)-37.1 C (98.8 F)] Pulse: [72-80] Respirations: [18 PER MINUTE] SpO2: [94 %-98 %] O2 Delivery: Nasal Cannula Physical Exam: General appearance: well appear female, appears stated age, dark leathery skin Head: Atraumatic, normocephalic Throat: Lips, mucosa, and tongue normal. Teeth and gums normal Neck: Penetrating wound with dressing in place in the midline superior to the sternum, supple, symmetrical, trachea midline Lungs: clear to auscultation bilaterally; left chest tube in place Heart: regular rate and rhythm, S1, S2 normal, no murmur, click, rub or gallop Abdomen: soft, non-tender. Bowel sounds normal. No masses, no organomegaly Extremities: extremities normal, atraumatic, no cyanosis or edema Neurologic: Motor function grossly intact Skin: aged, arora skin, appears leathery from excessive sun exposure Musculoskeletal: Normal muscle mass Lab/Radiology/Other Diagnostic Tests: 24-hour labs: Results for orders placed or performed during the hospital encounter of (from the past 24 hour(s)) CBC Collection Time: 09/06/17 3:03 AM Result Value Ref Range White Blood Cells 7.7 4.5 - 11.0 K/UL RBC 3.18 (L) 4.0 - 5.0 M/UL Hemoglobin 9.9 (L) 12.0 - 15.0 GM/DL Hematocrit 29.7 (L) 36 - 45 % MCV 93.3 80 - 100 FL MCH 31.3 26 - 34 PG MCHC 33.5 32.0 - 36.0 G/DL RDW 15.6 (H) 11 - 15 % Platelet Count 136 (L) 150 - 400 K/UL MPV 7.2 7 - 11 FL BASIC METABOLIC PANEL Collection Time: 09/06/17 3:03 AM Result Value Ref Range Sodium 132 (L) 137 - 147 MMOL/L Potassium 4.3 3.5 - 5.1 MMOL/L Chloride 101 98 - 110 MMOL/L CO2 26 21 - 30 MMOL/L Anion Gap 5 3 - 12 Glucose 94 70 - 100 MG/DL Blood Urea Nitrogen 25 7 - 25 MG/DL Creatinine 1.56 (H) 0.4 - 1.00 MG/DL Calcium 8.7 8.5 - 10.6 MG/DL eGFR Non 33 (L) >60 mL/min eGFR 40 (L) >60 mL/min MAGNESIUM Collection Time: 09/06/17 3:03 AM Result Value Ref Range Magnesium 2.0 1.6 - 2.6 mg/dL PHOSPHORUS Collection Time: 09/06/17 3:03 AM Result Value Ref Range Phosphorus 4.0 2.0 - 4.0 MG/DL Pertinent radiology reviewed. Luis Angel Slade MD Pager [phone] * Kary Crook, OT - 09/06/2017 3:00 PM CUT OUT STITCHER OCCUPATIONAL THERAPY NO TREATMENT NOTE The patient was not seen due to: Upon entrance to room patient sleeping. Spouse requested that patient continue sleeping. Therapist: Kary Crook, OT Date: 09/06/2017 * Letty Holcomb, PT - 09/06/2017 9:34 AM CUT OUT STITCHER PHYSICAL THERAPY PROGRESS NOTE MOBILITY: Progressive Mobility Level: Walk in hallway Distance Walked (feet): 200 ft Level of Assistance: Assist X1 Assistive Device: Walker Time Tolerated: 11-30 minutes Activity Limited By: Pain;Fatigue SUBJECTIVE: Significant hospital events: 71F with history of CAD, a.fib, HTN, and recent penetrating trauma to the neck s/p fall admitted with left pneumothorax s/p chest tube and left rib fractures. Mental / Cognitive Status: Alert;Cooperative;Follows Commands Persons Present: Significant Other Pain: Patient complains of pain;8/10;After activity (reports improvement after sitting in bedside chair, legs elevated) Pain Location: Left;Anterior;Knee (pain with weight bearing and palpation) Pain Interventions: Patient agrees to participate in therapy;Patient encouraged to use CASKET ASSEMBLER/PNC (IV);Treatment altered to patient's pain tolerance Comments: L chest tube to wall suction, okay to disconnect to ambulate. 2L O2 at rest Ambulation Assist: Independent Mobility in Community without Device Patient Owned Equipment: Roller Walker Home Situation: Lives with Family Type of Home: House Entry Stairs: 3-5 Stairs;Rail on 1 Side In-Home Stairs: No Stairs BED MOBILITY/TRANSFERS: Bed Mobility: Supine to Sit: Minimal Assist;Head of Bed Elevated;Use of Rail; Verbal Cues;Requires Extra Time;Assist with Trunk Transfer Type: Sit to/from Stand Transfer: Assistance Level: To/From;Bed;Bed Side Chair;Commode;Minimal Assist Transfer: Assistive Device: Roller Walker Transfers: Type Of Assistance: For Balance;For Safety Considerations End Of Activity Status: Up in Chair;Nursing Notified;Instructed Patient to Request Assist with Mobility;Instructed Patient to Use Call Light GAIT: Gait Distance: 200 feet Gait: Assistance Level: Minimal Assist Gait: Assistive Device: Roller Walker Gait: Descriptors: Antalgic (due to L knee pain) Activity Limited By: Complaint of Pain;Complaint of Fatigue Comments: O2 increased to 3L prior to ambulation. EDUCATION: Persons Educated: Patient Patient Barriers To Learning: None Noted Teaching Methods: Verbal Instruction Patient Response: Verbalized Understanding Topics: Plan/Goals of PT Interventions;Mobility Progression;Importance of Increasing Activity;Up with Assist Only;Use of Assistive Device/Orthosis ASSESSMENT/PROGRESS: Impaired Mobility Due To: Pain;Decreased Activity Tolerance Assessment/Progress: Progressing Toward Goals;Improving as Expected AM-PAC 6 Clicks Basic Mobility Inpatient Turning from your back to your side while in a flat bed without using bed rails : A Little Moving from lying on your back to sitting on the side of a flatbed without using bedrails : A Little Moving to and from a bed to a chair (including a wheelchair): A Little Standing up from a chair using your arms (e.g. wheelchair, or bedside chair): A Little To walk in hospital room: A Little Climbing 3-5 steps with a railing: A Little Basic Mobility CMS 0-100%: 40.47 CMS G Code Modifier for Basic Mobility: CK GOALS: Goal Formulation: With Patient Time For Goal Achievement: 7 days Pt Will Go Supine To/From Sit: w/ Stand By Assist, Ongoing Pt Will Transfer Sit to Stand: w/ Stand By Assist, Ongoing Pt Will Ambulate: Greater than 200 Feet, w/ Walker, w/ Stand By Assist, Ongoing Pt Will Go Up / Down Stairs: 3-5 Stairs, w/ Minimal Assist PLAN: Treatment Interventions: Mobility Training Plan Frequency: 5 Days per Week Comments: Progress distance and independence with gait, stair training, bed mobility with bed flat RECOMMENDATIONS: PT Discharge Recommendations: Home with Assistance Equipment Recommendations: Patient owns necessary equipment Therapist: Letty Holcomb PT, DPT Date: 09/06/2017 * Mike Menjivar MD - 09/06/2017 7:25 AM CUT OUT STITCHER Formatting of this note may be different from the original. Trauma Surgery Daily Progress Note Name: Gem Noland Today's Date: 09/06/2017 Admission Date: 09/04/2017 LOS: 2 days Subjective Gem Noland is a 71 y.o. female. No acute events overnight. Pain is well controlled with CASKET ASSEMBLER for pain. Complains of left sided chest pain. Pain with deep inspirations. Denies SOB. A 12 point review of systems is negative unless noted above. Assessment/Plan09/06/2017 Patient had a penetrating trauma to neck with subsequent imaging revealing no injury to the esophagus or trachea. She had rib fractures and a chest tube placed and currently pain is under control. We will continue to manage her chest pain and monitor any developments of hemothorax or worsening of pneumothorax. Active Problems: Penetrating trauma Trauma of soft tissue of neck Left knee pain Pneumothorax Rib fracture 71yo female with penetrating injury to zone 1 of the neck, L rib fx, and left sided pneumothorax who is doing well with primary complaint of pleuritic chest pain. Neuro: Acute pain - PRN fentanyl, acetaminophen, oxy - Added CASKET ASSEMBLER dilaudid for rib fx pain - q4h neuro checks CV: Hx of Afib - Monitor. Imdur 15 mg, Bystolic 2.5 mg, Multaq 400 mg BID, Crestor 40 mg - Hold CAMPGROUND HAND xarelto - F/u on medicine recs Resp: History of posterior rib fx left w/ pneumo s/p chest tube at OSH - Repeat 2 view CXR which demonstrates resolution and plan to pull chest tube - NC, titrate Renal: H/o CKD - TAM w/ Creatinine of 1.56 from 1.04. FEN: - Replace lytes prn Heme and ID: - No acute concerns - Monitor - Daily labs GI: r/o esophageal injury from neck trauama - Esophagram negative for injuries - Regular diet - Senna Endo: - Hypothyroidism: synthroid restarted - Gout: allopurinol restarted Psych: - Cymbalata restarted MSK: - PT/OT - Left knee swelling. Xray negative. 2/2 gout, or other inflammatory process Ppx: SCDs, Lovenox 30 mg BID Dispo: Floor status Active Hospital Problems Diagnosis Penetrating trauma Trauma of soft tissue of neck Left knee pain Pneumothorax Rib fracture Physical Exam Gen: A&Ox4 Head: Atraumatic Neck: Small penetrating laceration midline above the clavicles, no drainage Lungs: Lungs CTAB, Chest rises symmetrically Back: Tenderness to palpation of the left side Heart: Regular rate and rhythm Chest: Chest tube left side with dressings over insertion site, pain to light palpation in the left chest laterally and posteriorly Ext: Left knee effusion with pain to active motion, no edema, pulses 2+ Objective Vital Signs: Last Filed Vital Signs: 24 Hour Range BP: 127/68 (09/06 400) Temp: 36.9 C (98.4 F) (09/06 400) Pulse: 80 (09/05 1629) Respirations: 18 PER MINUTE (09/05 1300) SpO2: 97 % (09/06 400) O2 Delivery: Nasal Cannula (09/06 400) SpO2 Pulse: 77 (09/06 400) Height: 160 cm (63") (09/05 1100) BP: (99-127)/(48-78) Temp: [36.8 C (98.3 F)-37.4 C (99.3 F)] Pulse: [73-80] Respirations: [15 PER MINUTE-18 PER MINUTE] SpO2: [92 %-98 %] O2 Delivery: Nasal Cannula Intensity Pain Scale 0-10 (Pain 1): 8 (09/05/171999) Vitals: 09/04/17 1700 09/05/17 1100 Weight: 83.2 kg (183 lb 6.8 oz) 83.2 kg (183 lb 6.8 oz) Intake/Output Summary: (Last 24 hours) Intake/Output Summary (Last 24 hours) at 09/06/17 0725 Last data filed at 09/06/17 0500 Gross per 24 hour Intake 355 ml Output 1005 ml Net -650 ml Medications Scheduled allopurinol (ZYLOPRIM) tablet 300 mg 300 mg Oral QDAY dronedarone (MULTAQ) tablet 400 mg 400 mg Oral BID w/meals duloxetine DR (CYMBALTA) capsule 60 mg 60 mg Oral QHS enoxaparin (LOVENOX) syringe 30 mg 30 mg Subcutaneous BID isosorbide mononitrate SR (IMDUR) tablet 15 mg 15 mg Oral QDAY levothyroxine (SYNTHROID) tablet 50 mcg 50 mcg Oral QDAY nebivolol (BYSTOLIC) tablet 2.5 mg 2.5 mg Oral QDAY rosuvastatin (CRESTOR) tablet 40 mg 40 mg Oral QDAY senna/docusate (SENOKOT-S) tablet 1 tablet 1 tablet Oral BID Prn acetaminophen Q6H PRN 650 mg at 09/05/17 2053, diphenhydrAMINE Q4H PRN 25 mg at 09/06/17 0550, fentaNYL citrate PF Q1H PRN 50 mcg at 09/04/17 2244, loratadine QDAY PRN, naloxone PRN, oxyCODONE Q4H PRN 10 mg at 09/05/17 1627 Labs 24-hour labs: Results for orders placed or performed during the hospital encounter of (from the past 24 hour(s)) CBC Collection Time: 09/06/17 3:03 AM Result Value Ref Range White Blood Cells 7.7 4.5 - 11.0 K/UL RBC 3.18 (L) 4.0 - 5.0 M/UL Hemoglobin 9.9 (L) 12.0 - 15.0 GM/DL Hematocrit 29.7 (L) 36 - 45 % MCV 93.3 80 - 100 FL MCH 31.3 26 - 34 PG MCHC 33.5 32.0 - 36.0 G/DL RDW 15.6 (H) 11 - 15 % Platelet Count 136 (L) 150 - 400 K/UL MPV 7.2 7 - 11 FL BASIC METABOLIC PANEL Collection Time: 09/06/17 3:03 AM Result Value Ref Range Sodium 132 (L) 137 - 147 MMOL/L Potassium 4.3 3.5 - 5.1 MMOL/L Chloride 101 98 - 110 MMOL/L CO2 26 21 - 30 MMOL/L Anion Gap 5 3 - 12 Glucose 94 70 - 100 MG/DL Blood Urea Nitrogen 25 7 - 25 MG/DL Creatinine 1.56 (H) 0.4 - 1.00 MG/DL Calcium 8.7 8.5 - 10.6 MG/DL eGFR Non 33 (L) >60 mL/min eGFR 40 (L) >60 mL/min MAGNESIUM Collection Time: 09/06/17 3:03 AM Result Value Ref Range Magnesium 2.0 1.6 - 2.6 mg/dL PHOSPHORUS Collection Time: 09/06/17 3:03 AM Result Value Ref Range Phosphorus 4.0 2.0 - 4.0 MG/DL Radiology and other Diagnostics Review: Pertinent radiology reviewed. Mike Menjivar MD Associated attestation - Gavino Lovell MD - 09/06/2017 4:33 PM CUT OUT STITCHER Formatting of this note may be different from the original. ATTESTATION I personally performed the cai portions of the E/M visit, discussed case with resident and concur with resident documentation of history, physical exam, assessment, and treatment plan unless otherwise noted. Rib fractures/Left hemopneumothorax - lung expanded, only small effusion, chest tube out of chest. Will remove chest tube, check AM chest X-ray. Aggressive pulmonary hygiene, pain control, and mobility. Acute blood loss anemia - Hb low, but no clinical signs of overt bleeding. Possible hemodilution from fluid administration. Continue to trend serially. Optimize fluid balance. Monitor stools for signs of occult GI bleeding. Acute kidney injury - likely contrast nephropathy. Trend creatinine and urine output. Gout - continue current medications. Staff name: Gavino Lovell MD Date: 09/06/2017 * Letty Cedeño, PT - 09/05/2017 2:45 PM CUT OUT STITCHER PHYSICAL THERAPY ASSESSMENT MOBILITY: Mobility Progressive Mobility Level: Walk in hallway Distance Walked (feet): 110 ft Level of Assistance: Assist X1 Assistive Device: Walker Time Tolerated: 11-30 minutes Activity Limited By: Pain SUBJECTIVE: Subjective Significant hospital events: 71F with history of CAD, a.fib, HTN, and recent penetrating trauma to the neck s/p fall admitted with left pneumothorax s/p chest tube and left rib fractures. Mental / Cognitive Status: Alert;Cooperative;Follows Commands Persons Present: OT;Significant Other Pain: Patient complains of pain;06/06;After activity Pain Location: Left;Anterior;Knee (pain with weight bearing and palpation) Pain Interventions: Patient agrees to participate in therapy;Patient encouraged to use CASKET ASSEMBLER/PNC (IV);Treatment altered to patient's pain tolerance (Ice pack placed on L knee at the end of therapy session) Comments: L chest tube to wall suction, okay to disconnect to ambulate. 1L O2 at rest Ambulation Assist: Independent Mobility in Community without Device Patient Owned Equipment: Roller Walker Home Situation: Lives with Family Type of Home: House Entry Stairs: 3-5 Stairs;Rail on 1 Side In-Home Stairs: No Stairs ROM: ROM LE ROM: Bilateral;WFL (except L knee slightly limited due to pain/edema) STRENGTH: Strength Overall Strength: WFL BED MOBILITY/TRANSFERS: Bed Mobility/Transfers Bed Mobility: Supine to Sit: Moderate Assist;Head of Bed Elevated;Assist with Trunk Transfer Type: Sit to/from Stand Transfer: Assistance Level: From;Bed;To;Bed Side Chair;Minimal Assist Transfer: Assistive Device: Roller Walker Transfers: Type Of Assistance: For Safety Considerations End Of Activity Status: Up in Chair;Nursing Notified;Instructed Patient to Request Assist with Mobility;Instructed Patient to Use Call Light GAIT: Gait Gait Distance: 110 feet Gait: Assistance Level: Minimal Assist Gait: Assistive Device: Roller Walker Gait: Descriptors: Antalgic (due to L knee pain) Activity Limited By: Complaint of Pain Comments: O2 increased to 3L while ambulating due to SOA. EDUCATION: Education Persons Educated: Patient Patient Barriers To Learning: None Noted Teaching Methods: Verbal Instruction Patient Response: Verbalized Understanding Topics: Plan/Goals of PT Interventions;Mobility Progression;Importance of Increasing Activity;Up with Assist Only;Use of Assistive Device/Orthosis ASSESSMENT/PROGRESS: Assessment/Progress Impaired Mobility Due To: Pain;Decreased Activity Tolerance Assessment/Progress: Should Improve w/ Continued PT AM-PAC 6 Clicks Basic Mobility Inpatient Turning from your back to your side while in a flat bed without using bed rails : A Little Moving from lying on your back to sitting on the side of a flatbed without using bedrails : A Lot Moving to and from a bed to a chair (including a wheelchair): A Little Standing up from a chair using your arms (e.g. wheelchair, or bedside chair): A Little To walk in hospital room: A Little Climbing 3-5 steps with a railing: A Little Raw Score: 17 Standardized (T-scale) Score: 39.67 Basic Mobility CMS 0-100%: 43.83 CMS G Code Modifier for Basic Mobility: CK GOALS: Goals Goal Formulation: With Patient Time For Goal Achievement: 7 days Pt Will Go Supine To/From Sit: w/ Stand By Assist Pt Will Transfer Sit to Stand: w/ Stand By Assist Pt Will Ambulate: Greater than 200 Feet, w/ Walker, w/ Stand By Assist Pt Will Go Up / Down Stairs: 3-5 Stairs, w/ Minimal Assist PLAN: Plan Treatment Interventions: Mobility Training Plan Frequency: 5 Days per Week Comments: Progress ambulation RECOMMENDATIONS: PT Discharge Recommendations PT Discharge Recommendations: Home with Assistance Equipment Recommendations: Patient owns necessary equipment G-Codes: Mobility G8978 Current Status: 40-59% Impairment G8979 Goal Status: 1-19% Impairment Based on above evaluation and clinical judgment. Therapist: Letty Cedeño, PT Date: 09/05/2017 * Kary Crook, OT - 09/05/2017 2:40 PM CUT OUT STITCHER Formatting of this note may be different from the original. OCCUPATIONAL THERAPY ASSESSMENT NOTE Patient Name: Gem Noland Room/Bed: [place] [address] Admitting Diagnosis: Penetrating trauma Penetrating trauma Past Medical History: Diagnosis Date Arrhythmia Atrial fibrillation (HCC) CAD (coronary artery disease) HTN (hypertension) Mobility Progressive Mobility Level: Walk in hallway Distance Walked (feet): 110 ft Level of Assistance: Assist X1 Assistive Device: Walker Time Tolerated: 11-30 minutes Activity Limited By: Pain Subjective Dx:71yo female with penetrating injury to zone 1 of the neck, L rib fx, and left sided pneumothorax who is hemodynamically stable Patient Stated Goals: (Patient agreeable to Occupational Therapy Session. ) Precautions: Standard;O2 Requirement (Chest Tube) Pain / Complaints: Patient agrees to participate in therapy Pain Location: (Left knee pain.) Pain Level Current: 8 Very severe pain Comments: Reports using 2 liters of O2 at home. Objective Psychosocial Status: Willing and Cooperative to Participate Persons Present: PT (Spouse). Daughter present at beginning of session. Home Living Type of Home: House Home Layout: One Level (2-3 steps to enter home. 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 ) Vision Current Vision: (Denied changes in vision since hospitalization. ) ADL's Where Assessed: Chair Eating Assist: Not Performed Grooming Assist: Independent Grooming Deficits: Setup Bathing Assist: Not Performed UE Dressing Assist: Not Performed LE Dressing Assist: Total Assist LE Dressing Deficits: Don/Doff L Sock;Don/Doff R Sock Toileting Assist: Not Performed Functional Transfer Assist: (Supine to edge of bed with moderate assistance. ) Functional Transfer Deficits: Verbal Cueing Stood using walker with minimal assistance. Ambulated in hallway with minimal assistance. Second person assist for lines. Patient up in chair at end of session. Provided with call light and instructed to call for assistance when getting back to bed. Patient verbalized a good understanding. Activity Tolerance Endurance: 3/5 Tolerates 25-30 Minutes Exercise w/Multiple Rests Cognition Overall Cognitive Status: WFL to Adequately Complete Self Care Tasks Safely Orientation: Alert & Oriented x3 Attention: Awake/Alert Sensory Comment: (No gross deficits observed. ) Education Persons Educated: Patient Barriers To Learning: None Noted Teaching Methods: Verbal Instruction;Demonstration Patient Response: Verbalized and Demo Understanding Topics: Role of OT, Goals for Therapy;Home safety;ADL Compensatory Techniques; Adaptive Devices for ADLs Goal Formulation: With Patient Assessment Assessment: Decreased ADL Status;Decreased Endurance;Decreased Self-Care Trans; Decreased High-Level ADLs Prognosis: Good;w/ Family Goal Formulation: Pt/family G-Codes: Self-care G8987 Current Status: 40-59% Impairment G8988 Goal Status: 1-19% Impairment G8989 Discharge Status: Based on above evaluation and clinical judgment. AM-PAC 6 Clicks Daily Activity Inpatient Putting on and taking off regular lower body clothes?: A Lot Bathing (Including washing, rinsing, drying): A Lot Toileting, which includes using toilet, bedpan, or urinal: A Little Putting on and taking off regular upper body clothing: A Little Taking care of personal grooming such as brushing teeth: A Little Eating meals?: None Daily Activity Raw Score: 17 Standardized (t-scale) score: 37.26 CMS 0-100% Score: 50.11 CMS G Code Modifier: CK Plan Treatment Interventions: ADL Retraining;Patient/Family Training;Compensatory Technique Education Next Session: Lower body dressing at chair level. Chair level ADL's. Further Evaluation Goals Pt Will Tolerate Further ADL Evaluation: w/in1-2 sessions ADL Goals Patient Will Perform Grooming: in Chair, Independently, w/ Setup Patient Will Perform LE Dressing: In Chair, w/ Minimum Assist, w/ Adaptive Equipment Patient Will Perform Toileting: w/ Bedside Commode, w/ Minimum Assist Functional Transfer Goals Pt Will Perform All Functional Transfers: Minimum Assist, w/ Good Judgment/ Safety OT Discharge Recommendations OT Discharge Recommendations: Home with family assist Additional Information: (Reports having supportive family. ) Therapist: Kary Crook OT Date: 09/05/2017 * Yue Espinal RN - 09/05/2017 9:25 AM CUT OUT STITCHER Assumed care of patient at 0730. VSS. SR on tele. Bedside safety performed. Patient alert and oriented x4, has complaints of pain, medication given, see eMAR. Assessment completed, see flow sheet. 0830: CASKET ASSEMBLER initiated per orders. 1200 Re-assessment completed, see flow sheet. VSS per trends. No change from previous assessment. 1300: Patient med/surg status. 1500: Patient up with PT/OT. 1645: Patient taken to 2 view CXR by CHE Shah via wheelchair. * Socorro Anderson MD - 09/05/2017 7:08 AM CUT OUT STITCHER Formatting of this note may be different from the original. Trauma Surgery Daily Progress Note Name: Gem Noland Today's Date: 09/05/2017 Admission Date: 09/04/2017 LOS: 1 day Subjective Gem Noland is a 71 y.o. female. No acute events overnight. Complains of left sided chest pain. Pain with deep inspirations. Denies SOB. A 12 point review of systems is negative unless noted above. Assessment/Plan09/05/2017 Patient had a penetrating trauma to neck with subsequent imaging revealing no injury to the esophagus or trachea. She had rib fractures and a chest tube placed and currently pain is under control. We will continue to manage her chest pain and monitor any developments of hemothorax or worsening of pneumothorax. Active Problems: Penetrating trauma Trauma of soft tissue of neck Left knee pain Pneumothorax Rib fracture 71yo female with penetrating injury to zone 1 of the neck, L rib fx, and left sided pneumothorax who is doing well with primary complaint of pleuritic chest pain. Neuro: Acute pain -PRN fentanyl, acetaminophen, oxy -Added CASKET ASSEMBLER dilaudid for rib fx pain -q4h neuro checks CV: Hx of Afib -Monitor -hold CAMPGROUND HAND xarelto and imdur -f/u on medicine recs Resp: History of posterior rib fx left w/ pneumo s/p chest tube at OSH -repeat 2 view CXR -NC, titrate Renal: CKD -F/u renal profile FEN: -replace lytes prn Heme and ID: -no acute concerns -monitor -daily labs GI: r/o esophageal injury from neck trauama - Esophagram negative for injuries - Regular diet - senna Endo: Hypothyroidism - synthroid restarted Gout -allopurinol restarted Psych: -Cymbalata restarted MSK: - PT/OT -No fx of left knee, swelling possibly due to gout or other inflammatory process ppx: SCDs, Lovenox added today Dispo: Floor status Active Hospital Problems Diagnosis Penetrating trauma Trauma of soft tissue of neck Left knee pain Pneumothorax Rib fracture Physical Exam Gen: Laying in bed, awake Neck: Small penetrating laceration, no drainage Lungs no wheezing, no crackles, adequate air entry bilaterally:, Chest rises symmetrically Heart: Clear S1 and S2 Chest: Chest tube left side with dressings over insertion site, pain to light palpation in the left chest laterally and posteriorly Ext: Left knee effusion with pain to active motion, no edema, pulses 2+ Objective Vital Signs: Last Filed Vital Signs: 24 Hour Range BP: 94/54 (09/05 0600) Temp: 37.4 C (99.3 F) (11/09 0400) Pulse: 78 (09/05 600) Respirations: 15 PER MINUTE (09/05 600) SpO2: 97 % (09/05 600) O2 Delivery: Nasal Cannula (09/05 600) SpO2 Pulse: 78 (09/05 600) BP: (94-129)/(52-97) Temp: [36.4 C (97.5 F)-37.4 C (99.3 F)] Pulse: [78-88] Respirations: [13 PER MINUTE-22 PER MINUTE] SpO2: [90 %-99 %] O2 Delivery: Nasal Cannula Intensity Pain Scale 0-10 (Pain 1): 0 (09/05/17 040) Vitals: 09/04/17 1700 Weight: 83.2 kg (183 lb 6.8 oz) Intake/Output Summary: (Last 24 hours) Intake/Output Summary (Last 24 hours) at 09/05/17 0708 Last data filed at 09/05/17 0600 Gross per 24 hour Intake 1410 ml Output 745 ml Net 665 ml Medications Scheduled allopurinol (ZYLOPRIM) tablet 300 mg 300 mg Oral QDAY duloxetine DR (CYMBALTA) capsule 60 mg 60 mg Oral QHS levothyroxine (SYNTHROID) tablet 50 mcg 50 mcg Oral QDAY senna/docusate (SENOKOT-S) tablet 1 tablet 1 tablet Oral BID Prn acetaminophen Q6H PRN 650 mg at 09/05/17 0204, fentaNYL citrate PF Q1H PRN 50 mcg at 09/04/17 2244, oxyCODONE Q4H PRN 10 mg at 09/05/17 0621 Labs 24-hour labs: Results for orders placed or performed during the hospital encounter of (from the past 24 hour(s)) CBC Collection Time: 09/04/17 4:51 PM Result Value Ref Range White Blood Cells 11.1 (H) 4.5 - 11.0 K/UL RBC 3.59 (L) 4.0 - 5.0 M/UL Hemoglobin 11.3 (L) 12.0 - 15.0 GM/DL Hematocrit 33.4 (L) 36 - 45 % MCV 93.1 80 - 100 FL MCH 31.6 26 - 34 PG MCHC 33.9 32.0 - 36.0 G/DL RDW 15.1 (H) 11 - 15 % Platelet Count 170 150 - 400 K/UL MPV 7.3 7 - 11 FL PROTIME INR (PT) Collection Time: 09/04/17 4:51 PM Result Value Ref Range INR 1.1 0.8 - 1.2 PTT (APTT) Collection Time: 09/04/17 4:51 PM Result Value Ref Range APTT 30.3 21.0 - 39.0 SEC COMPREHENSIVE METABOLIC PANEL Collection Time: 09/04/17 4:51 PM Result Value Ref Range Sodium 136 (L) 137 - 147 MMOL/L Potassium 5.1 3.5 - 5.1 MMOL/L Chloride 108 98 [...] 12 eGFR Non 54 (L) >60 mL/min eGFR >60 >60 mL/min MAGNESIUM Collection Time: 09/04/17 4:51 PM Result Value Ref Range Magnesium 1.6 1.6 - 2.6 mg/dL PHOSPHORUS Collection Time: 09/04/17 4:51 PM Result Value Ref Range Phosphorus 3.7 2.0 - 4.0 MG/DL CBC Collection Time: 09/05/17 3:30 AM Result Value Ref Range White Blood Cells 12.6 (H) 4.5 - 11.0 K/UL RBC 3.38 (L) 4.0 - 5.0 M/UL Hemoglobin 10.4 (L) 12.0 - 15.0 GM/DL Hematocrit 31.5 (L) 36 - 45 % MCV 93.3 80 - 100 FL MCH 30.9 26 - 34 PG MCHC 33.1 32.0 - 36.0 G/DL RDW 15.1 (H) 11 - 15 % Platelet Count 163 150 - 400 K/UL MPV 7.4 7 - 11 FL BASIC METABOLIC PANEL Collection Time: 09/05/17 3:30 AM Result Value Ref Range Sodium 136 (L) 137 - 147 MMOL/L Potassium 4.1 3.5 - 5.1 MMOL/L Chloride 104 98 - 110 MMOL/L CO2 24 21 - 30 MMOL/L Anion Gap 8 3 - 12 Glucose 99 70 - 100 MG/DL Blood Urea Nitrogen 20 7 - 25 MG/DL Creatinine 1.04 (H) 0.4 - 1.00 MG/DL Calcium 8.3 (L) 8.5 - 10.6 MG/DL eGFR Non 52 (L) >60 mL/min eGFR >60 >60 mL/min MAGNESIUM Collection Time: 09/05/17 3:30 AM Result Value Ref Range Magnesium 1.6 1.6 - 2.6 mg/dL PHOSPHORUS Collection Time: 09/05/17 3:30 AM Result Value Ref Range Phosphorus 3.7 2.0 - 4.0 MG/DL Radiology and other Diagnostics Review: Pertinent radiology reviewed. Socorro Anderson MD Associated attestation - Gavino Lovell MD - 09/05/2017 2:15 PM CUT OUT STITCHER Formatting of this note may be different from the original. ATTESTATION I personally performed the cai portions of the E/M visit, discussed case with resident and concur with resident documentation of history, physical exam, assessment, and treatment plan unless otherwise noted. Left hemopneumothorax/rib fractures - continue chest tube to suction, pain control, pulmonary hygiene, aggressive mobility. Coagulopathy - hold anticoagulants for now. Hypomagnesemia - replete magnesium. Staff name: Gavino Lovell MD Date: 09/05/2017 * Cole Ahn, RT - 09/04/2017 5:39 PM CUT OUT STITCHER Formatting of this note may be different from the original. RESPIRATORY THERAPY ADULT PROTOCOL EVALUATION RESPIRATORY PROTOCOL PLAN Medications Note: If indicated by protocol, medication orders will be placed by therapist. Procedures PEP Therapy: Place a nursing order for "IS Q1h While Awake" for any of Lung Expansion indicators Oxygen/Humidity: O2 to keep SpO2 > 92% Monitoring: Pulse oximetry BID & PRN PATIENT EVALUATION RESULTS Chart Review * Pulmonary Hx: Smoker in home OR smoking cessation > 8 weeks * Surgical Hx: No surgery OR last surgery > 6 weeks ago OR trach/stoma (BA) * Chest X-Ray: Infiltrates (AC) OR atelectasis (LE) OR pleural effusion OR rib fractures (LE) * PFT/Oxygenation: FEV1, PEFR < 70% OR Pa02 < 70 RA OR Sp02 <92% RA OR Fi02 > 0.21 to keep Sp02 > 92% OR < 24 hours post-op (02 & oxim) OR chronic C02 retention (C02) Patient Assessment * Respiratory Pattern: Regular pattern and rate OR good chest excursion with deep breathing * Breath Sounds: Clear apically, but diminished in bases (LE) OR CHF related crackles (02) (oximetry) * Cough / Sputum: Good effective cough OR occasional or minimal sputum OR thin sputum * Mental Status: Alert, oriented, cooperative * Activity Level: Ambulatory with assistance Priority Index Total Points: 8 Points PRIORITY INDEX GUIDELINES* Priority Points 1 0-9 points 2 9-18 points 3 > 18 points + Pulm Dx or Home Rx *Higher points indicate higher acuity. Therapist: RT Mayank Date: 09/04/2017 Cai AC=Airway clearance AM=Aerosolized medication BA=Sauk aerosol DB&C=Deep breathe & cough FEV1=Forced expiratory volume in first second) IC=Inspiratory capacity LE=Lung expansion MDI=Metered dose inhaler Neb=Nebulizer O2=Oxygen Oxim=Oximetry PEFR=Peak expiratory flow rate FAMILY PROGRAM SPECIALIST=Rapid Response Team * Yue Espinal, CHE - 09/04/2017 5:30 PM CUT OUT STITCHER Patient arrive to unit at 1637. VS , On tele . Assessment complete at this time , see flow sheet. Labs drawn. Patient and family oriented to unit and plan of care. . Will continue to monitor. 1745: Patient taken to GI radiology via bed, tolerated transport well. Chest tube ok off suction for travel. in this encounter H&P Notes * Socorro Anderson MD - 09/05/2017 9:34 AM CUT OUT STITCHER Formatting of this note may be different from the original. Tertiary Trauma Survey (TTS) Date of TTS: 09/05/17 Time: 0800 Admission Date: 09/04/17 Trauma Activation Type: Consult HPI: Patient is a 71-year-old female presented from an outside hospital after sustaining a penetrating trauma to the neck. 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 She removed the pole with the primary complaint of pain. She states she also fell likely on her left side. She denied any loss of consciousness. She is brought to an outside hospital which revealed a left pneumothorax which was managed with a chest tube. Chest x-ray revealed left-sided rib fractures. Since admission she has not had any significant respiratory distress, though she does complain of pain with deep inspirations. She also fell on her side and injured her left knee though are no gross deformities noted besides swelling. PMHx: Past Medical History: Diagnosis Date Arrhythmia Atrial fibrillation (HCC) CAD (coronary artery disease) HTN (hypertension) PSHx: Past Surgical History: Procedure Laterality Date HX CORONARY ARTERY BYPASS GRAFT Social Hx: Social History Social History Marital status: Spouse name: N/A Number of children: N/A Years of education: N/A Occupational History Not on file. Social History Main Topics Smoking status: Former Smoker Quit date: 02/01/2007 Smokeless tobacco: Never Used Alcohol use No Drug use: No Sexual activity: Not on file Other Topics Concern Not on file Social History Narrative Allergies: Allergies Allergen Reactions Erythromycin Base HIVES Niaspan [Niacin] HIVES and RASH Penicillins HIVES Biaxin [Clarithromycin] HIVES Erythromycin HIVES Levaquin [Levofloxacin] SEE COMMENTS Drug interaction w/ multaq PHYSICAL ASSESSMENT General: Laying in bed, family member at bedside, awake HEENT: Head is atraumatic, no gross deformities, sclera normal, no drainage from ears, nose, or throat, no oral lesions noted NECK: Small 1-2 cm laceration with platysma visible above the the jugular notch , no drainage from the laceration site, no pain to palpation in the neck, full range of motion of neck, trachea midline Heart: Clear S1 and S2, no murmurs appreciated Chest/Lungs: No wheezing, no crackles, adequate air entry bilaterally, left- sided chest tube in place with dressings, well healed chest scar, pain to light palpation on the left chest, no gross bony deformities appreciated on light palpation, chest rises normally and symmetrically Abdomen: Soft, non tender, non distended, well healed midline scar, Back: Small ecchymosis on left posterior lateral aspect of pack with point tenderness, no spinal or paraspinal tenderness, tenderness inferior to left scapula, generalized tenderness to light palpation on left back thoracic level, generalized blue discoloration around chest tube area likely secondary to sterile prepping of the area, no midline tenderness, no paraspinal tenderness Extremities: Left knee effusion, pain with active ROM of left knee but has full ROM, strength grossly 5/5 in all extremities, no edema, several areas of ecchymoses which appear old in her extremities Neurologic: CN II - XII grossly intact, alert and oriented, fluent speech, cognition intact, sensations grossly intact Consults: 09/05/17 Medicine & Anesthesia pain List Injuries Identified to Date: 09/04/17: Anterior neck 1-2cm laceration extending to plyatisamus LIST OPERATIVE & Interventional RADIOLOGICAL Procedures: CHEST SINGLE VIEW Preliminary Result 1. Indwelling left chest tube with no pneumothorax identified. 2. Mild pulmonary venous congestion. 3. Poor depth of inspiration with bibasilar atelectasis. Approved by Zachery Rayo M.D. on 09/05/2017 10:35 AM KNEE 3 VIEWS LEFT Preliminary Result Findings/impression: Patricio Cedeño M.D. has personally reviewed [...] Britney Thornton D.O. on 09/05/2017 10:33 AM ESOPHAGRAM Final Result No esophageal leak identified. By my electronic signature, I attest that I have personally reviewed the images for this examination and formulated the interpretations and opinions expressed in this report Finalized by Jericho Sanchez M.D. on 09/04/2017 7:08 PM. Dictated by Andrés Kearney M.D. on 09/04/2017 6:02 PM. CHEST SINGLE VIEW (Results Pending) CHEST 2 VIEWS (Results Pending) Socorro Anderson MD * Neda Juarez MD - 09/04/2017 4:35 PM CUT OUT STITCHER Formatting of this note may be different from the original. Admission History and Physical Examination Name: Gem [facility] Admission Date: 09/04/2017 Assessment/Plan: Active Problems: Penetrating trauma Trauma of soft tissue of neck Left knee pain Pneumothorax 71yo female with penetrating injury to zone 1 of the neck, L rib fx, and left sided pneumothorax who is hemodynamically stable. Neuro: Acute pain -PRN fentanyl -q4h neuro checks CV: Hx of Afib - HDS -Monitor -hold xarelto Resp: History of posterior rib fx left w/ pneumo s/p chest tube at OSH -f/u CXR for tube placement -NC, titrate Renal: CKD -F/u renal profile FEN: -replace lytes prn Heme and ID: -no acute concerns -monitor -daily labs GI: - f/u esophogram -NPO -senna Endo: Hypothyroidism - synthroid Gout -allopurinol Psych: -[place] MSK: - PT/OT -f/u knee xray ppx: SCD, will hold anticoagulation Prophylaxis Review: Lines: chest tube, PIVs Urinary Catheter: none Antibiotic Usage: No VTE: SCDs Disposition/Family: SICU D/w Dr. Lovell Chief Complaint: penetrating injury to the neck History of Present Illness: Gem Noland is a 71 y.o. female that presents from an OSH for penetrating trauma to the neck. She reports being outside building a tent this afternoon. She had mechanical trip and fell onto a a tent pole. The tent pole/stake punctured zone 1 of her neck. She removed the pole from her neck. Denies and bleeding. Has some left chest wall pain and left knee pain. Past Medical History: Diagnosis Date Arrhythmia Atrial fibrillation (HCC) CAD (coronary artery disease) HTN (hypertension) No past surgical history on file. Family History Problem Relation Age of Onset Heart Failure Mother Coronary Artery Disease Father Coronary Artery Disease Brother Social History Social History Marital status: Spouse name: N/A Number of children: N/A Years of education: N/A Social History Main Topics Smoking status: Former Smoker Quit date: 02/01/2007 Smokeless tobacco: Never Used Alcohol use No Drug use: No Sexual activity: Not on file Other Topics Concern Not on file Social History Narrative Past Surgical History: Procedure Laterality Date HX CORONARY ARTERY BYPASS GRAFT Immunizations (includes history and patient reported): There is no immunization history on file for this patient. Allergies: Niaspan [niacin]; Biaxin [clarithromycin]; and Erythromycin Medications: Prescriptions Prior to Admission Medication Sig allopurinol (ZYLOPRIM) 100 mg tablet Take 300 mg by mouth daily. Take with food. dronedarone (MULTAQ) 400 mg tablet Take 1 Tab by mouth twice daily with meals. duloxetine DR (CYMBALTA) 30 mg capsule Take 60 mg by mouth at bedtime daily. ibandronate(+) (BONIVA) 150 mg tablet Take 150 mg by mouth every 30 days. isosorbide mononitrate SR (IMDUR) 30 mg tablet Take 15 mg by mouth every morning. levothyroxine (SYNTHROID) 100 mcg tablet Take 50 mcg by mouth daily. magnesium oxide (MAG-OX) 400 mg tablet Take 1 Tab by mouth twice daily. MULTIVITAMIN PO Take 1 Tab by mouth daily. nebivolol (BYSTOLIC) 2.5 mg tab tablet Take 2.5 mg by mouth daily. rivaroxaban (XARELTO) 20 mg tab tablet Take 1 Tab by mouth daily with dinner. rosuvastatin (CRESTOR) 40 mg tablet Take 40 mg by mouth daily. Review of Systems: Constitutional: negative Eyes: negative Ears, nose, mouth, throat, and face: negative, positive for pain at pucture sight Respiratory: negative Cardiovascular: negative Gastrointestinal: negative Integument/breast: negative Hematologic/lymphatic: negative Musculoskeletal:positive for neck pain, back pain, left knee pain Neurological: negative Behavioral/Psych: negative Endocrine: negative Physical Exam: Vital Signs: Last Filed In 24 Hours Vital Signs: 24 Hour Range BP: 111/69 (09/04 1637) Temp: 36.4 C (97.5 F) (09/04 1637) Pulse: 83 (09/04 1637) Respirations: 17 PER MINUTE (09/04 1637) SpO2: 91 % (09/04 1637) SpO2 Pulse: 84 (09/04 1637) BP: (111)/(69) Temp: [36.4 C (97.5 F)] Pulse: [83] Respirations: [17 PER MINUTE] SpO2: [91 %] Physical Exam Constitutional: She is oriented to person, place, and time. She appears well- developed and well-nourished. HENT: Head: Normocephalic and atraumatic. Right Ear: External ear normal. Left Ear: External ear normal. Eyes: EOM are normal. Pupils are equal, round, and reactive to light. Neck: Trachea normal and normal range of motion. Neck supple. No JVD present. No tracheal tenderness present. No rigidity. No tracheal deviation, no edema and no erythema present. Cardiovascular: Normal rate and normal heart sounds. Pulses: Radial pulses are 2+ on the right side, and 2+ on the left side. Dorsalis pedis pulses are 2+ on the right side, and 2+ on the left side. Pulmonary/Chest: Effort normal and breath sounds normal. No stridor. Left sided chest tube in place. Abdominal: Soft. She exhibits no distension. There is no tenderness. There is no rigidity and no guarding. Musculoskeletal: Left knee: She exhibits decreased range of motion. She exhibits no swelling. Tenderness found. Neurological: She is alert and oriented to person, place, and time. She has normal strength. No cranial nerve deficit or sensory deficit. Skin: Skin is warm and dry. Psychiatric: She has a normal mood and affect. Nursing note and vitals reviewed. Lab/Radiology/Other Diagnostic Tests: 24-hour labs: No results found for this visit on 09/04/17 (from the past 24 hour(s)). Pertinent radiology reviewed. Neda Juarez MD PGY1 Pager- [phone] Associated attestation - Gavino Lovell MD - 09/05/2017 7:38 AM CUT OUT STITCHER Formatting of this note may be different from the original. ATTESTATION I personally performed the cai portions of the E/M visit, discussed case with resident and concur with resident documentation of history, physical exam, assessment, and treatment plan unless otherwise noted. Left rib fractures/Left hemopneumothorax - continue tube thoracostomy. Aggressive mobilization, pulmonary hygiene, and pain control. Staff name: Gavino Lovell MD Date: 09/05/2017 in this encounter Consult Notes * Alexia Sanchez MD - 09/05/2017 3:00 PM CUT OUT STITCHER Associated Order(s): CONSULT INTERNAL MEDICINE PHYSICIAN Formatting of this note may be different from the original. General Consult Note Admission Date: 09/04/2017 LOS: 1 day Reason for Consult: Multi-system disease; Geriatric patient Consult type: Opinion with orders Assessment/Plan Gem Noland is a 71 y.o. female with a pmhx of HTN, CAD with AR s/p 3 vessel CABG in 2006, Afib, depression, gout, osteoperosis, and hypothyroid who was admitted to from an OSH after sustaining a penetrating trauma to zone one of her throat with a tent post. Appears to be doing well. Pain tolerable and hemodynamically stable. Work-up has revealed to trauma to trachea, esophagus or surrounding vasculature. - HTN: CAMPGROUND HAND Nebivolol 2.5mg; well controlled - mildly hypotensive with good MAP's - CAD: CAMPGROUND HAND Rosuvastatin 40mg; Imdur 15mg; 3 vessel CABG in 2006 after AR - Afib: CAMPGROUND HAND Xarelto - held at this time given trauma - ?hx of ventricular tachyarrhythmias: CAMPGROUND HAND Multaq 400mg BID - Depression: CAMPGROUND HAND cymbalta 60mg - Osteoporosis: CAMPGROUND HAND ibandronate - Hypothyroid: CAMPGROUND HAND synthroid 50mg - Gout: CAMPGROUND HAND Allopurinol 300mg daily Geriatric Assessment: Pt lives in a home with significant other. States that she is very functional at baseline and is able to care for herself. Able to make herself meals. Has fairly significant back pain at baseline which has progressed over the past year and has limited her day to day function unless she takes tylenol with codeine, which she does not like to do. Pt has a wheelchair, walker and cane at home that she uses intermittently when she feels she needs it. Has three stairs up into the house with a handrail to aid. No stairs in the house. Polypharmacy does not appear to be obvious concern as patient has very good follow-up with 4 doctors with whom she is very familiar. She allocates all medications for the week into a medication diaz which she then self administers. Has two previous mechanical falls within the last year. Recommendations: - Continue CAMPGROUND HAND Nevibolol for HTN; hold for systolic pressures < 90 - Continue CAMPGROUND HAND meds for CAD, depression, hypothyroid, arrhythmias and gout - Hold Xarelto until clear hemostasis is achieved - May benefit from outpatient PT; consider PT/OT consult Thank you for the consult. Please contact Gen Med consult team with any questions. LATE ENTRY: On 09/05/18 , I personally performed the cai portions of the physical exam, discussed case with patient and resident and concur with resident documentation of history, physical exam, assessment, and treatment plan unless otherwise noted.71 yo F admitted post fall resulting in a penetrating trauma to neck. She states she has had 22 mechanical falls in the past year. She has a walker and cane available but does not use either. She ias able to complete all ADL's and cooks for herself and manages her own medications. No polypharmacy present. Staff name: Alexia Sanchez MD Date: 09/06/2017 History of Present Illness: Gem Noland is a 71 y.o. female with a pmhx of HTN, CAD with AR s/p 3 vessel CABG in 2006, Afib, depression, gout, osteoperosis , and hypothyroid who was admitted to from an OSH after sustaining a penetrating trauma to zone one of her throat with a tent post. Pt states that she and others were building a storage tent and that she was walking with a tent pole in her hand. She lost her footing and fell and the tent post pierced her throat. She denies having any shortness of breath or pain initially, but did remove the tent post from her neck immediately. A dressing was placed over the wound and she was transported to the nearest hospital by family. In the OSH a chest tube was placed for a L pneumothorax seen on x-ray, also seen on x-ray were left-sided rib fractures. Work-up here so far has not revealed any tracheal , esophageal or vascular damage. She currently denies any dyspnea though is having pain with deep inspiration. Past Medical History: Diagnosis Date Arrhythmia Atrial fibrillation (HCC) CAD (coronary artery disease) HTN (hypertension) Past Surgical History: Procedure Laterality Date HX CORONARY ARTERY BYPASS GRAFT Social History Social History Marital status: Spouse name: N/A Number of children: N/A Years of education: N/A Social History Main Topics Smoking status: Former Smoker Quit date: 02/01/2007 Smokeless tobacco: Never Used Alcohol use No Drug use: No Sexual activity: Not on file Other Topics Concern Not on file Social History Narrative Family history reviewed; non-contributory Allergies: Erythromycin base; Niaspan [niacin]; Penicillins; Biaxin [ clarithromycin]; Erythromycin; and Levaquin [levofloxacin] Scheduled Meds: allopurinol (ZYLOPRIM) tablet 300 mg 300 mg Oral QDAY dronedarone (MULTAQ) tablet 400 mg 400 mg Oral BID w/meals duloxetine DR (CYMBALTA) capsule 60 mg 60 mg Oral QHS enoxaparin (LOVENOX) syringe 30 mg 30 mg Subcutaneous BID isosorbide mononitrate SR (IMDUR) tablet 15 mg 15 mg Oral QDAY levothyroxine (SYNTHROID) tablet 50 mcg 50 mcg Oral QDAY nebivolol (BYSTOLIC) tablet 2.5 mg 2.5 mg Oral QDAY senna/docusate (SENOKOT-S) tablet 1 tablet 1 tablet Oral BID Continuous Infusions: HYDROmorphone (DILAUDID) CASKET ASSEMBLER 11 mg/NS 55mL infusion syr (std conc)(premade ) lactated ringers infusion 20 mL/hr at 09/05/17 1202 PRN and Respiratory Meds:acetaminophen Q6H PRN, diphenhydrAMINE Q4H PRN, fentaNYL citrate PF Q1H PRN, loratadine QDAY PRN, naloxone PRN, oxyCODONE Q4H PRN Review of Systems: Constitutional: Denies recent weight loss/gain, no fevers or chills Respiratory: denies SOB or productive cough Cardiovascular: Hx of afib, CABG, denies CP or palpitations Gastrointestinal: denies diarrhea, constipation, hematochezia Genitourinary:denies dysuria/hematuria Hematologic/lymphatic: no easy bruising or bleeding Neurological: denies any numbness or tingling in extremities Vital Signs: Last Filed in 24 hours Vital Signs: 24 hour Range BP: 107/55 (09/05 1300) Temp: 37.4 C (99.3 F) (09/05 1200) Pulse: 76 (09/05 1300) Respirations: 18 PER MINUTE (09/05 1300) SpO2: 92 % (09/05 1300) O2 Delivery: Nasal Cannula (09/05 1300) SpO2 Pulse: 80 (09/05 1300) Height: 160 cm (63") (09/05 1100) BP: (94-129)/(48-97) Temp: [36.4 C (97.5 F)-37.4 C (99.3 F)] Pulse: [73-88] Respirations: [13 PER MINUTE-22 PER MINUTE] SpO2: [90 %-99 %] O2 Delivery: Nasal Cannula Physical Exam: General appearance: well appear female, appears stated age, dark leathery skin Head: Atraumatic, normocephalic Throat: Lips, mucosa, and tongue normal. Teeth and gums normal Neck: Penetrating wound with dressing in place in the midline superior to the sternum, supple, symmetrical, trachea midline Lungs: clear to auscultation bilaterally; left chest tube in place Heart: regular rate and rhythm, S1, S2 normal, no murmur, click, rub or gallop Abdomen: soft, non-tender. Bowel sounds normal. No masses, no organomegaly Extremities: extremities normal, atraumatic, no cyanosis or edema Neurologic: Motor function grossly intact Skin: aged, arora skin, appears leathery from excessive sun exposure Musculoskeletal: Normal muscle mass Lab/Radiology/Other Diagnostic Tests: 24-hour labs: Results for orders placed or performed during the hospital encounter of (from the past 24 hour(s)) CBC Collection Time: 09/04/17 4:51 PM Result Value Ref Range White Blood Cells 11.1 (H) 4.5 - 11.0 K/UL RBC 3.59 (L) 4.0 - 5.0 M/UL Hemoglobin 11.3 (L) 12.0 - 15.0 GM/DL Hematocrit 33.4 (L) 36 - 45 % MCV 93.1 80 - 100 FL MCH 31.6 26 - 34 PG MCHC 33.9 32.0 - 36.0 G/DL RDW 15.1 (H) 11 - 15 % Platelet Count 170 150 - 400 K/UL MPV 7.3 7 - 11 FL PROTIME INR (PT) Collection Time: 09/04/17 4:51 PM Result Value Ref Range INR 1.1 0.8 - 1.2 PTT (APTT) Collection Time: 09/04/17 4:51 PM Result Value Ref Range APTT 30.3 21.0 - 39.0 SEC COMPREHENSIVE METABOLIC PANEL Collection Time: 09/04/17 4:51 PM Result Value Ref Range Sodium 136 (L) 137 - 147 MMOL/L Potassium 5.1 3.5 - 5.1 MMOL/L Chloride 108 98 [...] 12 eGFR Non 54 (L) >60 mL/min eGFR >60 >60 mL/min MAGNESIUM Collection Time: 09/04/17 4:51 PM Result Value Ref Range Magnesium 1.6 1.6 - 2.6 mg/dL PHOSPHORUS Collection Time: 09/04/17 4:51 PM Result Value Ref Range Phosphorus 3.7 2.0 - 4.0 MG/DL CBC Collection Time: 09/05/17 3:30 AM Result Value Ref Range White Blood Cells 12.6 (H) 4.5 - 11.0 K/UL RBC 3.38 (L) 4.0 - 5.0 M/UL Hemoglobin 10.4 (L) 12.0 - 15.0 GM/DL Hematocrit 31.5 (L) 36 - 45 % MCV 93.3 80 - 100 FL MCH 30.9 26 - 34 PG MCHC 33.1 32.0 - 36.0 G/DL RDW 15.1 (H) 11 - 15 % Platelet Count 163 150 - 400 K/UL MPV 7.4 7 - 11 FL BASIC METABOLIC PANEL Collection Time: 09/05/17 3:30 AM Result Value Ref Range Sodium 136 (L) 137 - 147 MMOL/L Potassium 4.1 3.5 - 5.1 MMOL/L Chloride 104 98 - 110 MMOL/L CO2 24 21 - 30 MMOL/L Anion Gap 8 3 - 12 Glucose 99 70 - 100 MG/DL Blood Urea Nitrogen 20 7 - 25 MG/DL Creatinine 1.04 (H) 0.4 - 1.00 MG/DL Calcium 8.3 (L) 8.5 - 10.6 MG/DL eGFR Non 52 (L) >60 mL/min eGFR >60 >60 mL/min MAGNESIUM Collection Time: 09/05/17 3:30 AM Result Value Ref Range Magnesium 1.6 1.6 - 2.6 mg/dL PHOSPHORUS Collection Time: 09/05/17 3:30 AM Result Value Ref Range Phosphorus 3.7 2.0 - 4.0 MG/DL Pertinent radiology reviewed. Lusi Angel Slade MD Pager [phone] * Daja Mckeon MD - 09/05/2017 2:50 PM CUT OUT STITCHER Associated Order(s): CONSULT ANESTHESIOLOGY ACUTE PAIN Formatting of this note may be different from the original. Anesthesia Pain Consult Note Admission Date: 09/04/2017 LOS: 1 day Reason for Consult: Rib fractures Consult type: Opinion with orders Assessment/Plan 71F with history of CAD, a.fib, HTN, and recent penetrating trauma to the neck s/p fall admitted with left pneumothorax s/p chest tube and left rib fractures. - Currently on 1L NC, denies trouble taking a deep breath - Pain 2/10 at rest, worse with activity, specifically in left shoulder - Imaging shows left rib fractures, CXR from 09/04/17 shows old bilateral rib fractures - X-ray 2016 showed T4 vertebral body compression fracture and scoliosis - CAMPGROUND HAND meds: amitriptyline, cymbalta, norco - Current inpatient meds: tylenol prn, cymbalta, fentanyl, dilaudid CASKET ASSEMBLER, oxycodone prn - Patient was on xarelto at home for a.fib (last dose unknown) which has been held - Lovenox 30 mg BID started 09/05/17 (@9162), if continue BID dosing, would require 12 hours from last dose to place epidural - Patient would like to think about epidural overnight and pain team will see her tomorrow History of Present Illness: Gem Noland is a 71 y.o. female with history of CAD, a.fib, HTN, and recent penetrating trauma to the neck s/p fall admitted with left pneumothorax s/p chest tube and left rib fractures. Pain is currenlty 2/10 at rest, no trouble breathing with 1L NC. Pain increased with activity mostly in left shoulder which patient was informed would not be helped by epidural. Medicine team is consulted for medical problems including a.fib. Patient was on xarelto at home, now on lovenox BID dosing which would have to be held at least [address] epidural. Patient would like to think about the epidural overnight and let us know in the morning. She is tolerating oral pain medications and has dilaudid CASKET ASSEMBLER which she had not been using until the button option was explained to her. Past Medical History: Diagnosis Date Arrhythmia Atrial fibrillation (HCC) CAD (coronary artery disease) HTN (hypertension) Past Surgical History: Procedure Laterality Date HX CORONARY ARTERY BYPASS GRAFT Social History Social History Marital status: Spouse name: N/A Number of children: N/A Years of education: N/A Social History Main Topics Smoking status: Former Smoker Quit date: 02/01/2007 Smokeless tobacco: Never Used Alcohol use No Drug use: No Sexual activity: Not on file Other Topics Concern Not on file Social History Narrative Family history reviewed; non-contributory Allergies: Erythromycin base; Niaspan [niacin]; Penicillins; Biaxin [ clarithromycin]; Erythromycin; and Levaquin [levofloxacin] Scheduled Meds: allopurinol (ZYLOPRIM) tablet 300 mg 300 mg Oral QDAY dronedarone (MULTAQ) tablet 400 mg 400 mg Oral BID w/meals duloxetine DR (CYMBALTA) capsule 60 mg 60 mg Oral QHS enoxaparin (LOVENOX) syringe 30 mg 30 mg Subcutaneous BID isosorbide mononitrate SR (IMDUR) tablet 15 mg 15 mg Oral QDAY levothyroxine (SYNTHROID) tablet 50 mcg 50 mcg Oral QDAY nebivolol (BYSTOLIC) tablet 2.5 mg 2.5 mg Oral QDAY senna/docusate (SENOKOT-S) tablet 1 tablet 1 tablet Oral BID Continuous Infusions: HYDROmorphone (DILAUDID) CASKET ASSEMBLER 11 mg/NS 55mL infusion syr (std conc)(premade ) lactated ringers infusion 20 mL/hr at 09/05/17 1202 PRN and Respiratory Meds:acetaminophen Q6H PRN, diphenhydrAMINE Q4H PRN, fentaNYL citrate PF Q1H PRN, loratadine QDAY PRN, naloxone PRN, oxyCODONE Q4H PRN Review of Systems: A 14 point review of systems was negative except for: Constitutional: positive for fatigue Cardiovascular: positive for irregular heart beats Musculoskeletal: positive for neck pain and back pain Vital Signs: Last Filed in 24 hours Vital Signs: 24 hour Range BP: 107/55 (09/05 1300) Temp: 37.4 C (99.3 F) (09/05 1200) Pulse: 76 (09/05 1300) Respirations: 18 PER MINUTE (09/05 1300) SpO2: 92 % (09/05 1300) O2 Delivery: Nasal Cannula (09/05 1300) SpO2 Pulse: 80 (09/05 1300) Height: 160 cm (63") (09/05 1100) BP: (94-129)/(48-97) Temp: [36.4 C (97.5 F)-37.4 C (99.3 F)] Pulse: [73-88] Respirations: [13 PER MINUTE-22 PER MINUTE] SpO2: [90 %-99 %] O2 Delivery: Nasal Cannula Physical Exam: General: Alert, cooperative, no distress, appears stated age Head: Normocephalic, without obvious abnormality, atraumatic Neck: Supple, symmetrical, trachea midline, no adenopathy, thyroid: no enlargement/tenderness/nodules, no carotid bruit and no JVD Lungs: Clear to auscultation bilaterally Chest wall: left sided tenderness Heart: regular rate, irregular rhythm Abdomen: Soft, non-tender. Bowel sounds normal. No masses. No organomegaly. Extremities: minimal edema, bruising over legs and forearms Neurologic: CNII - XII intact. Normal strength, sensation and reflexes throughout. Lab/Radiology/Other Diagnostic Tests: Pertinent labs reviewed Pertinent radiology reviewed. Daja Mckeon MD Pager [phone] Associated attestation - Harrison Magallanes MD - 09/05/2017 4:56 PM CUT OUT STITCHER Formatting of this note may be different from the original. ATTESTATION I personally performed the cai portions of the E/M visit, discussed case with resident and concur with resident documentation of history, physical exam, assessment, and treatment plan unless otherwise noted. Patient with left rib fracture s/p fall. She was on Xarelto CAMPGROUND HAND and is not a candidate for an epidural until 72 hours from the last dose. Also unable to place epidural while on BID Lovenox. She is a candidate for PECS/serratus blocks , however she currently rates pain as mild and is able to take deep breaths comfortably. Discussed risks and benefits- she is not interested in a block at this time. Will revisit tomorrow. Staff name: Harrison Magallanes MD Date: 09/05/2017 in this encounter Miscellaneous Notes * Care Plan - Analy Monson RN - 09/07/2017 10:38 AM CUT OUT STITCHER Problem: Respiratory Impairment (Non-Ventilated Patient) Goal: Effective gas exchange Outcome: Goal Achieved Date Met: 09/07/17 Pt on RA. Problem: Falls, High Risk of Goal: Absence of falls-Adult Patient Outcome: Goal Achieved Date Met: 09/07/17 Pt was absent of falls this stay. Problem: Discharge Planning Goal: Participation in plan of care Outcome: Goal Achieved Date Met: 09/07/17 Pt actively participates in her plan of care. Goal: Knowledge regarding plan of care Outcome: Goal Achieved Date Met: 09/07/17 Pt has been informed of her plan of care. * Care Plan - Tawnya Moreno RN - 09/06/2017 10:24 PM CUT OUT STITCHER Problem: Falls, High Risk of Goal: Absence of falls-Adult Patient Outcome: Goal Ongoing High fall risk bundle in place * Case Mgmt DC Plan - Snehal Vicente RN - 09/06/2017 9:22 AM CUT OUT STITCHER 09/06/2017: manager quantitative checked in on patient and visited with her at the bedside. Patient a 71 year old female who sustained a penetrating wound to her throat via tent post causing her to lose her footing and fall to the gorund. Patient fully alert and oriented, pleasant and cooperative. Able to converse well. Patient continues with left-sided chest tube to suction. States her pain is well controlled with CASKET ASSEMBLER. Has floor orders. I encouraged use Of Incentive Spirometry. Discharge plan: Patient will return home (no stairs in the house). She has a wheelchair, walker, cane and bedside commode at home that she uses off and on. PT and OT agree with plan to return home with assistance. Patient does not believe she requires home health for nursing or therapies. Will continue to follow for discharge planning and support, Snehal Vicente RN, BSN Trauma & [employer] Drilling Field Specialist Pager: [phone] * Care Plan - Tawnya Moreno RN - 09/05/2017 9:55 PM CUT OUT STITCHER Problem: Falls, High Risk of Goal: Absence of falls-Adult Patient Outcome: Goal Ongoing High fall risk bundle in place * Case Mgmt DC Plan - Magali Funk RN - 09/05/2017 11:56 AM CUT OUT STITCHER Formatting of this note may be different from the original. Case Management Assessment Date: 09/05/2017 Name: Gem Noland [id number] [id number] (home) [phone] (work) Address confirmed? Yes Hospital Adm Date: 09/04/2017 PCP: Russ Avalos Problem: Trauma transfer/direct admission from [facility] after a fall and penetrating tent stake to the neck Injuries Identified: L rib fx, pneumothorax PMH: R hip replacement, Afib-Xarelto, CAD, CABG, hypothyroid Palliative Screening and Intervention Tool Score: category 1- patient reports having DPOA- S/O Diego is named decision maker- copy not available. Pt reports no advanced direct but is a FULL CODE "Im still to young" Trauma Specific Frailty Index Score:1.5/0.1 Acute Stress Symptoms:denies Plan: Admit to SICU for frequent monitoring. Consult to anesthesia, IM, OT/PT. Pain control with CASKET ASSEMBLER. 3LNC, L CT to wall suction. Regular diet. Voids. CXR today. Transfer to floor. Intervention: CHE ENAMORADO met with patient and s/o at bedside. Introduced self and role in POC and discharge planning. Discharge Plan: Anticipate dc home with s/o support Sex: female Age: 71 y.o. : 1945 Primary Language Irish: Yes Extended Emergency Contact Information Primary Emergency Contact: ModestoDiego bergman [facility] Relation: Significant Other Secondary Emergency Contact: Cathy Mirza [facility] Relation: Daughter Primary Insurance: Yes- Medicare Secondary Insurance: Yes- Rx Coverage: Yes If Medicare Part D, pt in [facility]? N/A MEDS BY MAIL [facility] - ALYCIA VASQUEZ - [address] [facility] [address] [facility] [address] [facility] ([facility]) [address] [place] [address] [facility] [address] [address] [place] Benefits, if yes location? no Financial assistance needed, medications, etc? No Admission Diagnosis/Complaint: Penetrating trauma Penetrating trauma Admitted from: transfer from [facility] Previous Hospitalization: Yes If yes, was hospitalization within last 30 days? No History of Substance Abuse: No (denies smoking, alcohol or drug use) Audit C Score=0 CAGE Aid Score=0 History of Current/Previous Mental Health Care: Yes If yes, symptoms: depression Provider: Comments: Lives with: With family: Boyfriend- house with 4 stairs to enter, bed/bath on main level once inside Support System/Caregivers: Yes- s/o Help available to transport home from hospital? Yes Help available to transport to follow up appointments? 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 Current/Previous Services Service Yes/No If yes, Current? Contact or additional information Home Health Yes Hospice No DME Yes bedside commode, cane, crutches, walker, wheelchair and toilet seat Enteral No Infusion No Other (ex.lifeline) No If yes, would you use this/these provider/providers again? Yes Current/Previous Facility FACILITY TYPE YES/NO If yes, comments SNF/LTC no Inpt Rehab no LTAC no If yes, would you consider returning to this facility? N/A Information obtained from: patient and spouse/SO Trauma Specific Frailty Index (TSFI) score Comobidities Cancer history Yes 1 No 0 Coronary heart disease Myocardial infarction 1 Coronary Artery bypass grafting 0.75 Percutaneous coronary intervention 0.5 Medication 0.25 No medication 0 Dementia Severe 1 Moderate 0.5 Mild 0.25 None 0 Daily Activities Help with Grooming Yes 1 No 0 Help with Managing Money Yes 1 No 0 Help doing household work Yes 1 No 0 Help toileting Yes 1 No 0 Help walking Wheelchair 1 Walker 0.75 Cane 0.5 None 0 Health attitude Feel less useful Most time 1 Sometimes 0.5 Never 0 Feel sad Most time 1 Sometimes 0.5 Never 0 Feel effort to do everything Most time 1 Sometimes 0.5 Never 0 Falls Most time 1 Sometimes 0.5 Never 0 Feel lonely Most time 1 Sometimes 0.5 Never 0 Function, sexually active Yes 0 No 1 Nutrition, albumin <3 1 >3 0 Total score: 1.5/0.1 Magali "Abigail" CHE Funk, BSN Trauma ICU Drilling Field Specialist Pager: [phone] * Care Plan - Yue Espinal RN - 09/05/2017 11:17 AM CUT OUT STITCHER Problem: Falls, High Risk of Goal: Absence of falls-Adult Patient Outcome: Goal Ongoing Patient re-educated on importance of call light sytem for assistance. in this encounter Plan of Treatment Not on fileas of this encounter Results * CHEST 2 VIEWS (09/07/2017 9:54 AM) Specimen Performing Laboratory [facility] RESULTS Impressions [...] Interface, Radiant Results - 09/07/2017 12:40 PM CUT OUT STITCHER Procedure: CHEST 2 VIEWS Clinical Indication: 71-year-old [...] * CHEST SINGLE VIEW (09/07/2017 5:19 AM) Specimen Performing Laboratory [facility] RESULTS Impressions [...] Interface, Radiant Results - 09/07/2017 10:32 AM CUT OUT STITCHER Procedure: CHEST SINGLE VIEW Clinical Indication: 71-year-old [...] Roy M.D. on 09/07/2017 8:57 AM. * PHOSPHORUS (09/07/2017 3:36 AM) Component Value Ref Range Phosphorus 3.8 2.0 - 4.0 MG/DL Specimen Performing Laboratory Blood [facility] [address] [id number] * MAGNESIUM (09/07/2017 3:36 AM) Component Value Ref Range Magnesium 2.2 1.6 - 2.6 mg/dL Specimen Performing Laboratory Blood [facility] [address] [place] [address] * BASIC METABOLIC PANEL (09/07/2017 3:36 AM) Component Value Ref Range Sodium 134 (L) [...] Performing Laboratory Blood [facility] [address] [place] [address] * CBC (09/07/2017 3:36 AM) Component Value Ref Range White Blood Cells [...] - 11 FL Specimen Performing Laboratory Blood [facility] [address] [place] [address] * CHEST 2 VIEWS (09/06/2017 12:00 PM) Specimen Performing Laboratory [facility] RESULTS Impressions 1.Mild cardiomegaly with persistent small left pleural effusion and bibasilar atelectasis. 2.Redemonstration of left thoracostomy tube with sidehole over soft tissues of thorax. Finalized by Deonna Patterson M.D. on 09/06/2017 12:44 PM. Dictated by Deonna Patterson M.D. on 09/06/2017 12:40 PM. Narrative CHEST 2 VIEWS Indication: Chest tube and +/-hemothorax. Comparison: September 05, 2017 Findings: The heart appears mildly enlarged. The pulmonary vasculature is unremarkable. There is a persistent small left pleural effusion and mild bibasilar atelectasis. No pneumothorax is identified. The left thoracostomy tube remains with the side hole over the soft tissues of the left thorax. Loop recorder overlies the cardiac silhouette. The patient is status post median sternotomy and CABG. Multiple left rib fractures are again noted. There are are multiple compression deformities in the thoracic spine. Procedure Note Interface, Radiant Results - 09/06/2017 12:47 PM CUT OUT STITCHER CHEST 2 VIEWS Indication: Chest tube and +/-hemothorax. Comparison: September 05, 2017 Findings: The heart appears mildly enlarged. The pulmonary vasculature is unremarkable. There is a persistent small left pleural effusion and mild bibasilar atelectasis. No pneumothorax is identified. The left thoracostomy tube remains with the side hole over the soft tissues of the left thorax. Loop recorder overlies the cardiac silhouette. The patient is status post median sternotomy and CABG. Multiple left rib fractures are again noted. There are are multiple compression deformities in the thoracic spine. IMPRESSION 1. Mild cardiomegaly with persistent small left pleural effusion and bibasilar atelectasis. 2. Redemonstration of left thoracostomy tube with sidehole over soft tissues of thorax. Finalized by Deonna Patterson M.D. on 09/06/2017 12:44 PM. Dictated by Deonna Patterson M.D. on 09/06/2017 12:40 PM. * PHOSPHORUS (09/06/2017 3:03 AM) Component Value Ref Range Phosphorus 4.0 2.0 - 4.0 MG/DL Specimen Performing Laboratory Blood [facility] [address] [place] [address] * MAGNESIUM (09/06/2017 3:03 AM) Component Value Ref Range Magnesium 2.0 1.6 - 2.6 mg/dL Specimen Performing Laboratory Blood [facility] [address] [place] [address] * BASIC METABOLIC PANEL (09/06/2017 3:03 AM) Component Value Ref Range Sodium 132 (L) 137 - 147 MMOL/L Potassium 4.3 3.5 - 5.1 MMOL/L Chloride 101 98 - 110 MMOL/L CO2 26 21 - 30 MMOL/L Anion Gap 5 3 - 12 Glucose 94 70 - 100 MG/DL Blood Urea Nitrogen 25 7 - 25 MG/DL Creatinine 1.56 (H) 0.4 - 1.00 MG/DL Calcium 8.7 8.5 - 10.6 MG/DL eGFR Non 33 [...] Performing Laboratory Blood [facility] [address] [place] [address] * CBC (09/06/2017 3:03 AM) Component Value Ref Range White Blood Cells 7.7 4.5 - 11.0 K/UL RBC 3.18 (L) 4.0 - 5.0 M/UL Hemoglobin 9.9 (L) 12.0 - 15.0 GM/DL Hematocrit 29.7 (L) 36 - 45 % MCV 93.3 80 - 100 FL MCH 31.3 26 - 34 PG MCHC 33.5 32.0 - 36.0 G/DL RDW 15.6 (H) 11 - 15 % Platelet Count 136 (L) 150 - 400 K/UL MPV 7.2 7 - 11 FL Specimen Performing Laboratory Blood [facility] [address] [place] [address] * CHEST 2 VIEWS (09/05/2017 4:54 PM) Specimen Performing Laboratory [facility] RESULTS Impressions 1.Slight retraction of the left thoracostomy tube. Recommend advancement for more appropriate positioning. 2.Small left pleural effusion. 3.Left rib fractures again noted. These findings were discussed with Dr. Munoz by telephone at 8:45 AM on 2016. Approved by Leno Orr M.D. on 09/06/2017 8:49 AM By my electronic signature, I attest that I have personally reviewed the images for this examination and formulated the interpretations and opinions expressed in this report Finalized by Dominick Chu M.D. on 09/06/2017 8:51 AM. Dictated by Leno Orr M.D. on 09/06/2017 8:44 AM. Narrative Procedure: CHEST 2 VIEWS Clinical Indication: 71-year-old female. Chest tube Comparison: Chest x-ray September 05, 2017 Findings: The left thoracostomy tube has been retracted with the sidehole now overlying the soft tissues of chest. The heart size is normal without pulmonary vascular congestion. A cardiac loop recorder overlies the cardiac silhouette. Prior median sternotomy and CABG noted. There are scattered areas of scarring throughout both lungs. There is bibasilar atelectasis. There is a small left pleural effusion seen on the lateral view. Multiple left rib fractures are again noted. Procedure Note Interface, Radiant Results - 09/06/2017 8:55 AM CUT OUT STITCHER Procedure: CHEST 2 VIEWS Clinical Indication: 71-year-old female. Chest tube Comparison: Chest x-ray September 05, 2017 Findings: The left thoracostomy tube has been retracted with the sidehole now overlying the soft tissues of chest. The heart size is normal without pulmonary vascular congestion. A cardiac loop recorder overlies the cardiac silhouette. Prior median sternotomy and CABG noted. There are scattered areas of scarring throughout both lungs. There is bibasilar atelectasis. There is a small left pleural effusion seen on the lateral view. Multiple left rib fractures are again noted. IMPRESSION 1. Slight retraction of the left thoracostomy tube. Recommend advancement for more appropriate positioning. 2. Small left pleural effusion. 3. Left rib fractures again noted. These findings were discussed with Dr. Munoz by telephone at 8:45 AM on 2016. Approved by Leno Orr M.D. on 09/06/2017 8:49 AM By my electronic signature, I attest that I have personally reviewed the images for this examination and formulated the interpretations and opinions expressed in this report Finalized by Dominick Chu M.D. on 09/06/2017 8:51 AM. Dictated by Leno Orr M.D. on 09/06/2017 8:44 AM. * CHEST SINGLE VIEW (09/05/2017 12:09 PM) Specimen Performing Laboratory [facility] RESULTS Impressions Interval improvement in pulmonary venous congestion and pulmonary edema with mild persistent bibasilar atelectasis. Finalized by Deonna Patterson M.D. on 09/05/2017 12:58 PM. Dictated by Deonna Patterson M.D. on 09/05/2017 12:54 PM. Narrative CHEST SINGLE VIEW Indication: eval hemopneumo. Comparison: September 04, 2017 Findings: The heart is at the upper limits of normal in size. There is improved pulmonary venous congestion and pulmonary edema. Mild bibasilar atelectasis persists. No pneumothorax is identified. The left thoracostomy tube is in similar position. The patient is status post median sternotomy. Loop recorder is visualized over the left lower thorax. Procedure Note Interface, Radiant Results - 09/05/2017 1:01 PM CUT OUT STITCHER CHEST SINGLE VIEW Indication: eval hemopneumo. Comparison: September 04, 2017 Findings: The heart is at the upper limits of normal in size. There is improved pulmonary venous congestion and pulmonary edema. Mild bibasilar atelectasis persists. No pneumothorax is identified. The left thoracostomy tube is in similar position. The patient is status post median sternotomy. Loop recorder is visualized over the left lower thorax. IMPRESSION Interval improvement in pulmonary venous congestion and pulmonary edema with mild persistent bibasilar atelectasis. Finalized by Deonna Patterson M.D. on 09/05/2017 12:58 PM. Dictated by Deonna Patterson M.D. on 09/05/2017 12:54 PM. * PHOSPHORUS (09/05/2017 3:30 AM) Component Value Ref Range Phosphorus 3.7 2.0 - 4.0 MG/DL Specimen Performing Laboratory [facility] [address] [place] [address] * MAGNESIUM (09/05/2017 3:30 AM) Component Value Ref Range Magnesium 1.6 1.6 - 2.6 mg/dL Specimen Performing Laboratory [facility] [address] [place] [address] * BASIC METABOLIC PANEL (09/05/2017 3:30 AM) Component Value Ref Range Sodium 136 (L) 137 - 147 MMOL/L Potassium 4.1 3.5 - 5.1 MMOL/L Chloride 104 98 - 110 MMOL/L CO2 24 21 - 30 MMOL/L Anion Gap 8 3 - 12 Glucose 99 70 - 100 MG/DL Blood Urea Nitrogen 20 7 - 25 MG/DL Creatinine 1.04 (H) 0.4 - 1.00 MG/DL Calcium 8.3 (L) 8.5 - 10.6 MG/DL eGFR Non 52 (L) >60 mL/min Comment: The eGFR is [...] Pharmacist for questions. Specimen Performing Laboratory [facility] [address] [place] [address] * CBC (09/05/2017 3:30 AM) Component Value Ref Range White Blood Cells 12.6 (H) 4.5 - 11.0 K/UL RBC 3.38 (L) 4.0 - 5.0 M/UL Hemoglobin 10.4 (L) 12.0 - 15.0 GM/DL Hematocrit 31.5 (L) 36 - 45 % MCV 93.3 80 - 100 FL MCH 30.9 26 - 34 PG MCHC 33.1 32.0 - 36.0 G/DL RDW 15.1 (H) 11 - 15 % Platelet Count 163 150 - 400 K/UL MPV 7.4 7 - 11 FL Specimen Performing Laboratory [facility] [address] [place] [address] * KNEE 3 VIEWS LEFT (09/04/2017 7:07 [...] Interface, Radiant Results - 09/05/2017 4:47 PM CUT OUT STITCHER Procedure: KNEE 3 VIEWS LEFT Clinical Indication: [...] Interface, Radiant Results - 09/04/2017 7:11 PM CUT OUT STITCHER TEMPORARY CLINICAL HISTORY: 71-year-old female, penetrating injury [...] Kearney M.D. on 09/04/2017 6:02 PM. * CHEST SINGLE VIEW (09/04/2017 5:31 PM) Specimen Performing Laboratory [facility] RESULTS Impressions 1. Indwelling left chest tube with no pneumothorax identified. 2. Mild pulmonary venous congestion. 3. Poor depth of inspiration with bibasilar atelectasis. Approved by Zachery Rayo M.D. on 09/05/2017 10:35 AM By my electronic signature, I attest that I have personally reviewed the images for this examination and formulated the interpretations and opinions expressed in this report Finalized by Bong Kenney M.D. on 09/05/2017 3:14 PM. Dictated by Zachery Rayo M.D. on 09/05/2017 8:22 AM. Narrative Procedure: CHEST SINGLE VIEW Clinical Indication: Trauma to neck, fall, penetrating trauma to neck Comparison: Same-day esophagram Findings: Prior median sternotomy and CABG are noted. Left chest tube is in place with the tip directed towards the left lung apex. There is poor depth of inspiration. Heart size is within normal limits with mild pulmonary venous congestion. There is mild bibasilar atelectasis. No pleural effusion or pneumothorax. Old bilateral rib fractures are again noted. Procedure Note Interface, Radiant Results - 09/05/2017 3:17 PM CUT OUT STITCHER Procedure: CHEST SINGLE VIEW Clinical Indication: Trauma to neck, fall, penetrating trauma to neck Comparison: Same-day esophagram Findings: Prior median sternotomy and CABG are noted. Left chest tube is in place with the tip directed towards the left lung apex. There is poor depth of inspiration. Heart size is within normal limits with mild pulmonary venous congestion. There is mild bibasilar atelectasis. No pleural effusion or pneumothorax. Old bilateral rib fractures are again noted. IMPRESSION 1. Indwelling left chest tube with no pneumothorax identified. 2. Mild pulmonary venous congestion. 3. Poor depth of inspiration with bibasilar atelectasis. Approved by Zachery Rayo M.D. on 09/05/2017 10:35 AM By my electronic signature, I attest that I have personally reviewed the images for this examination and formulated the interpretations and opinions expressed in this report Finalized by oBng Kenney M.D. on 09/05/2017 3:14 PM. Dictated by Zachery Rayo M.D. on 09/05/2017 8:22 AM. * PHOSPHORUS (09/04/2017 4:51 PM) Component Value Ref Range Phosphorus 3.7 2.0 - 4.0 MG/DL Specimen Performing Laboratory [facility] [address] [place] [address] * MAGNESIUM (09/04/2017 4:51 PM) Component Value Ref Range Magnesium 1.6Comment: SLT HEMOLYSIS 1.6 - 2.6 mg/dL Specimen Performing Laboratory [facility] [address] [place] [address] * COMPREHENSIVE METABOLIC PANEL (09/04/2017 4:51 PM) [...] Performing Laboratory [facility] [address] [place] [address] * PTT (APTT) (09/04/2017 4:51 PM) Component Value Ref Range APTT 30.3Comment: NOTE NEW REFERENCE RANGES 21.0 - 39.0 SEC Specimen Performing Laboratory [facility] [address] [place] [address] * PROTIME INR (PT) (09/04/2017 4:51 PM) Component Value Ref Range INR 1.1 0.8 - 1.2 Specimen Performing Laboratory [facility] [address] [place] [address] * CBC (09/04/2017 4:51 PM) Component Value Ref Range White Blood Cells 11.1 (H) 4.5 - 11.0 K/UL RBC 3.59 (L) 4.0 - 5.0 M/UL Hemoglobin 11.3 (L) 12.0 - 15.0 GM/DL Hematocrit 33.4 (L) 36 - 45 % MCV 93.1 80 - 100 FL MCH 31.6 26 - 34 PG MCHC 33.9 32.0 - 36.0 G/DL RDW 15.1 (H) 11 - 15 % Platelet Count 170 150 - 400 K/UL MPV 7.3 7 - 11 FL Specimen Performing Laboratory [facility] [address] [place] [address] * CT CHEST EXTERNAL IMAGING (09/04/2017) Narrative This order has been auto finalized and does not contain a result. in this encounter Visit Diagnoses Diagnosis Penetrating trauma Open wound(s) (multiple) of unspecified site(s), without mention of complication Traumatic pneumothorax, initial encounter Closed fracture of multiple ribs of left side, initial encounter Hemothorax, left Other specified forms of effusion, except tuberculous Coagulopathy (HCC) Other and unspecified coagulation defects Traumatic pneumothorax, subsequent encounter Hypomagnesemia Disorders of magnesium metabolism Diagnosis unknown Other unknown and unspecified cause of morbidity or mortality Acute blood loss anemia Acute posthemorrhagic anemia 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) Acute kidney injury (HCC) Acute kidney failure, unspecified Closed fracture of multiple ribs of left side with routine healing, subsequent encounter Trauma of soft tissue of neck Left knee pain Pain in joint, lower leg Pneumothorax Other pneumothorax Rib fracture Closed fracture of rib(s), unspecified in this encounter Admitting Diagnoses Diagnosis Penetrating trauma Penetrating trauma in this encounter Administered Medications Medication Order MAR Action Action Date Dose Rate Site acetaminophen (TYLENOL) tablet 650 mg Given 09/06/2017 650 mg 650 mg, Oral, EVERY 6 HOURS PRN, 15:15 CUT OUT STITCHER Starting Katharina 09/05/17 at 0201, Until 09/07/17 at 1404, Pain non-opioid: may be used alone or in combination with opioid analgesia, TOTAL ACETAMINOPHEN DOSE NOT TO EXCEED 4GM DAILY Given 09/06/2017 650 mg 21:46 CUT OUT STITCHER Given 09/07/2017 650 mg 03:51 CUT OUT STITCHER allopurinol (ZYLOPRIM) tablet 300 mg Given 09/05/2017 300 mg 300 mg, Oral, DAILY, First dose on Sat 07:53 CUT OUT STITCHER 09/04/17 at 1700, Until Discontinued Given 09/06/2017 300 mg 09:18 CUT OUT STITCHER Given 09/07/2017 300 mg 08:29 CUT OUT STITCHER diphenhydrAMINE (BENADRYL) injection 25 Given 09/05/2017 25 mg mg 16:27 CUT OUT STITCHER 25 mg, Intravenous, EVERY 4 HOURS PRN, Starting Katharina 09/05/17 at 0748, Until Sat09/06/17 at 1056, Itching Injectable Given 09/05/2017 25 mg 22:37 CUT OUT STITCHER Given 09/06/2017 25 mg 05:50 CUT OUT STITCHER dronedarone (MULTAQ) tablet 400 mg Given 09/06/2017 400 mg 400 mg, Oral, TWICE DAILY WITH MEALS, 09:17 CUT OUT STITCHER First dose on Katharina 09/05/17 at 0845, Until Discontinued, Administer with morning and evening meal. Avoid coadministration with grapefruit/grapefruit juice. Given 09/06/2017 400 mg 17:14 CUT OUT STITCHER Given 09/07/2017 400 mg 08:29 CUT [address] STITCHER d[address] DR (CYMBALTA) capsule 60 mg Given 09/05/2017 60 mg 60 mg, Oral, AT BEDTIME DAILY, First 00:31 CUT OUT STITCHER dose on Sat09/04/17 at 2100, Until Discontinued, Swallow whole - DO NOT open or crush capsule Given 09/05/2017 60 mg 20:52 CUT OUT STITCHER Given 09/06/2017 60 mg 21:37 CUT OUT STITCHER enoxaparin (LOVENOX) syringe 30 mg Given 09/06/2017 30 mg Abdomen:RLQ 30 mg, Subcutaneous, TWICE DAILY, First 09:20 CUT OUT STITCHER dose on Katharina 09/05/17 at 1315, Until Discontinued, For patients undergoing surgery: Consult physician in advance -- enoxaparin is an anticoagulant and may need to be held for 12hr prior to surgery or invasive procedures. NOTE: This is a HIGH ALERT Medication. Given 09/06/2017 30 mg Abdomen:LLQ 21:37 CUT OUT STITCHER Given 09/07/2017 30 mg Abdominal 08:28 CUT OUT STITCHER Tissue FENTANYL CITRATE (PF) 50 MCG/ML IJ SOLN Given 09/04/2017 50 mcg (Cabinet Override) 16:54 CUT OUT STITCHER NOW, 1 dose, Sat09/04/17 at 1700, Created by cabinet override fentaNYL citrate PF (SUBLIMAZE) Given 09/04/2017 50 mcg injection 25-50 mcg 20:09 CUT OUT STITCHER 25-50 mcg, Intravenous, EVERY 1 HOUR PRN, Starting 09/04/17 at 1647, Until 09/07/17 at 1404, Pain Injectable Given 09/04/2017 50 mcg 22:44 CUT OUT STITCHER Given 09/06/2017 50 mcg 16:50 CUT OUT STITCHER HYDROmorphone (DILAUDID) CASKET ASSEMBLER 11 mg/NS Given - New 09/05/2017 55mL infusion syr (std conc)(premade) Bag 08:34 CUT OUT STITCHER Intravenous, CASKET ASSEMBLER, Starting Katharina 09/05/17 at 0900, Until 09/07/17 at 1404, CASKET ASSEMBLER Additional Bolus (Pain >5): 5 mg, Re-assess in 15 minutes, may repeat bolus ONE time if pain not adequately controlled (MAXIMUM of 2 bolus doses only). Check pump to ensure proper function and appropriate patient utilization. If pain is still not adequately controlled, contact physician. Stop CASKET ASSEMBLER if patient difficult to arouse, or systolic BP drops more than 20 mmHg from baseline. HYDROmorphone CASKET ASSEMBLER Conc=0.2 mg/mL Administer only with CASKET ASSEMBLER Pump -- Only Patient may push CASKET ASSEMBLER button. NOTE: This is a HIGH ALERT Medication. MEDICATION DOUBLE CHECK Policy applies. Dose/Rate Verify 09/05/2017 19:37 CUT OUT STITCHER Dose/Rate Verify 09/06/2017 07:18 CUT OUT STITCHER iopamidol 370 (ISOVUE-370) injection 150 Given 09/04/2017 150 mL mL 17:50 CUT OUT STITCHER 150 mL, SEE ADMIN INSTRUCTIONS, ONCE, 1 dose, Sat09/04/17 at 1800, NOTE: This is a HIGH ALERT Medication. isosorbide mononitrate SR (IMDUR) tablet Given 09/05/2017 15 mg 15 mg 10:11 CUT OUT STITCHER 15 mg, Oral, DAILY, First dose on Katharina 09/05/17 at 0900, Until Discontinued, DO NOT Crush tablets (May be cut in half) Given 09/06/2017 15 mg 09:21 CUT OUT STITCHER Given 09/07/2017 15 mg 08:29 CUT OUT STITCHER lactated ringers infusion Given - New 09/05/2017 50 mL/hr 1,000 mL, Intravenous, at 20 mL/hr, Bag 07:54 CUT OUT STITCHER CONTINUOUS, Starting Katharina 09/05/17 at 0730, Until 09/07/17 at 1404 Dose/Rate Change 09/05/2017 20 mL/hr 12:02 CUT OUT STITCHER levothyroxine (SYNTHROID) tablet 50 mcg Given 09/05/2017 50 mcg 50 mcg, Oral, DAILY, First dose on Sat 07:53 CUT OUT STITCHER 09/04/17 at 1700, Until Discontinued, Give 1 hour before a meal. If patient is receiving tube feedings, hold tube feed 1hr before and 1hr after dose. Given 09/06/2017 50 mcg 09:18 CUT OUT STITCHER Given 09/07/2017 50 mcg 08:29 CUT OUT STITCHER loratadine (CLARITIN) tablet 10 mg Given 09/06/2017 10 mg 10 mg, Oral, DAILY PRN, Starting Katharina 12:48 CUT OUT STITCHER 09/05/17 at 0748, Until 09/07/17 at 1404, Itching PO Given 09/06/2017 10 mg 21:37 CUT OUT STITCHER magnesium oxide (MAG-OX) tablet 400 mg Given 09/05/2017 400 mg 400 mg, Oral, ONCE, 1 dose, Katharina 09/05/17 06:21 CUT OUT STITCHER at 0430, Delivers 241.3mg elemental magnesium per tab nebivolol (BYSTOLIC) tablet 2.5 mg Given 09/05/2017 2.5 mg 2.5 mg, Oral, DAILY, First dose on Katharina 16:27 CUT OUT STITCHER 09/05/17 at 1515, Until Discontinued, Hold for heart rate < 60 bpm, SBP<90 Given 09/06/2017 2.5 mg 09:19 CUT OUT STITCHER Given 09/07/2017 2.5 mg 08:29 CUT OUT STITCHER oxyCODONE (ROXICODONE, OXY-IR) tablet Given 09/06/2017 10 mg 5-10 mg 21:37 CUT OUT STITCHER 5-10 mg, Oral, EVERY 4 HOURS PRN, Starting Sat09/04/17 at 2354, Until 09/07/17 at 1404, Pain PO Given 09/07/2017 10 mg 03:51 CUT OUT STITCHER Given 09/07/2017 10 mg 09:09 CUT OUT STITCHER rosuvastatin (CRESTOR) tablet 40 mg Given 09/06/2017 40 mg 40 mg, Oral, DAILY, First dose on Katharina 09:19 CUT OUT STITCHER 09/05/17 at 1715, Until Discontinued Given 09/07/2017 40 mg 08:29 CUT OUT STITCHER senna/docusate (SENOKOT-S) tablet 1 Given 09/05/2017 1 tablet tablet 20:39 CUT OUT STITCHER 1 tablet, Oral, TWICE DAILY, First dose on Sat09/04/17 at 2100, Until Discontinued, Hold for loose stools Given 09/06/2017 1 tablet 09:24 CUT OUT STITCHER sodium chloride 0.9 % infusion Given - 09/06/2017 500 mL 1000 mL /hr 500 mL, 500 mL, Intravenous, at 1,000 Bag 11:32 CUT OUT STITCHER mL/hr, BOLUS, 1 dose, Sat09/06/17 at 1100 sodium chloride 0.9 % infusion Given - 09/07/2017 500 mL 1000 mL /hr 500 mL, 500 mL, Intravenous, at 1,000 Bag 06:44 CUT OUT STITCHER mL/hr, BOLUS, 1 dose, 09/07/17 at 0645 in this encounter
--- OUTSIDE RECORDS SUMMARY | 2017-10-25 14:08 | XMS REPORT | Encounter Summary ---
Author Author [facility] Organization [facility] Address Unknown Phone Unavailable Care Team Providers Care President [employer] Name Role Phone PCP Unavailable Reason for Visit * Reason Comments Medication Follow-up Encounter Details Date Type Department Care Team Description 09/02/2017 Telephone [facility] Cardiology Ana Thomas RN Medication Follow-up [address] [place] [address] Social History Tobacco Use Types Packs/Day Years [...] Ana Thomas RN - 09/02/2017 12:37 PM [facility] Formatting of this note may be different from the original. Yolette Biswas Nurse Ep Patient reports she is doing good. Called patient back. She stated that she is taking Multaq and Xarelto and is doing well. 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 Will notify [facility] of this. * Telephone Encounter - Ana Thomas RN - 09/02/2017 7:57 AM [facility] LM for patient to call back. Will need to send MPE a text page once patient calls back. * Telephone Encounter - Ana Thomas RN - 09/02/2017 7:57 AM [facility] Formatting of this note may be different from the original. ----- Message from Tom Miller MD sent at 09/01/2017 5:31 PM [facility] ----- Please call pt and see how she is doing re: Her prior long-standing diarrhea. Also please see if she is taking Multaq or not. Then please text page me to let me know if Ms. Huber is taking the Multaq or not. Thank you. Tom Miller MD P [facility] Nurse Ep This is the second [...]
--- OUTSIDE RECORDS SUMMARY | 2017-10-25 14:08 | XMS REPORT | Encounter Summary ---
Author Author [facility] Organization [facility] Address Unknown Phone Unavailable Care Team Providers Care Derrick Barge Operator Name Role Phone PCP Unavailable Encounter Details Date Type Department Care Team Description 09/04/2017 Hospital [facility] [address] [place] [address] Social History Tobacco Use Types Packs/Day Years [...] impairment: No 07/10/2016 as of this encounter Medications at Time of Discharge [...] 40 mg by mouth mg tablet daily. duloxetine DR (CYMBALTA) Take 60 mg by mouth at 09/05/2017 30 mg capsule bedtime daily. senna/docusate Take 1 tablet by mouth 60 tablet 0 09/07/20172016 (SENOKOT-S) 8.6/50 mg twice daily for 30 days. tablet as of this encounter Plan of Treatment Not on fileas of this encounter Visit Diagnoses Not on filein this encounter
--- OUTSIDE RECORDS SUMMARY | 2017-10-25 14:12 | XMS REPORT | Continuity of Care Document ---
Author Author [facility] Organization [facility] Address Unknown Phone Unavailable Allergies Active Description Code Type Severity Reaction Onset Reported/Identified Relationship to Patient Clinical Status Yes morphine [id number] Drug Allergy Unknown N/A 04/18/2008 Yes Penicillins [id number] Drug Allergy Unknown N/A 04/18/2008 Yes clarithromycin [id number] Drug Allergy Unknown N/A 09/27/2016 Yes erythromycin base [id number] Drug Allergy Unknown N/A 09/27/2016 Yes morphine [id number] Drug Allergy Unknown TAKES LORTAB AT 09/27/2016 Yes Penicillins [id number] Drug Allergy Unknown RASH, HAS HAD R 09/27/2016 Yes levofloxacin [id number] Drug Allergy Unknown N/A 09/04/2017 Yes levothyroxine [id number] Drug Allergy Unknown N/A 09/04/2017 Medications There is no data. Problems Date Dx Coded Attending Type Code Diagnosis Diagnosed By 05/06/2013 Ot 785.0 05/06/2013 Ot 785.1 05/06/2013 Ot 786.09 03/22/2014 DARSHAN SEGUNDO MD Ot 414.01 03/22/2014 DARSHAN SEGUNDO MD Ot 414.02 03/22/2014 DARSHAN SEGUNDO MD Ot 414.2 03/22/2014 DARSHAN SEGUNDO MD Ot 427.1 03/22/2014 DARSHAN SEGUNDO MD Ot 427.31 03/22/2014 DARSHAN SEGUNDO MD Ot 440.0 03/22/2014 DARSHAN SEGUNDO MD Ot 593.9 03/22/2014 DARSHAN SEGUNDO MD Ot 780.2 03/22/2014 DARSHAN SEGUNDO MD Ot 785.1 03/22/2014 DARSHAN SEGUNDO MD Ot 786.50 03/22/2014 DARSHAN SEGUNDO MD Ot V45.81 03/22/2014 DARSHAN SEGUNDO MD Ot V58.69 08/26/2014 SEGUNDO SHRESTHA, ERIC R Ot 038.9 08/26/2014 SEGUNDO SHRESTHA, ERIC R Ot 244.9 08/26/2014 SEGUNDO SHRESTHA, ERIC R Ot 250.00 08/26/2014 SEGUNDO SHRESTHA, ERIC R Ot 276.69 08/26/2014 SEGUNDO SHRESTHA, ERIC R Ot 276.8 08/26/2014 SEGUNDO SHRESTHA, ERIC R Ot 278.00 08/26/2014 SEGUNDO SHRESTHA, ERIC R Ot 311 08/26/2014 SEGUNDO SHRESTHA, ERIC R Ot 327.23 08/26/2014 SEGUNDO SHRESTHA, ERIC R Ot 414.00 08/26/2014 SEGUNDO SHRESTHA, ERIC R Ot 480.9 08/26/2014 SEGUNDO SHRESTHA, ERIC R Ot 491.21 08/26/2014 SEGUNDO SHRESTHA, ERIC R Ot 530.81 08/26/2014 SEGUNDO SHRESTHA, ERIC R Ot 716.90 08/26/2014 SEGUNDO SHRESTHA, ERIC R Ot 793.11 08/26/2014 SEGUNDO SHRESTHA, ERIC R Ot 799.02 08/26/2014 SEGUNDO SHRESTHA, ERIC R Ot 799.3 08/26/2014 SEGUNDO SHRESTHA, ERIC R Ot 995.91 08/26/2014 SEGUNDO SHRESTHA, ERIC R Ot V04.81 08/26/2014 SEGUNDO SHRESTHA, ERIC R Ot V12.09 08/26/2014 SEGUNDO SHRESTHA, ERIC R Ot V13.01 08/26/2014 SEGUNDO SHRESTHA, ERIC R Ot V13.02 08/26/2014 SEGUNDO SHRESTHA, ERIC R Ot V15.82 08/26/2014 SEGUNDO SHRESTHA, ERIC R Ot V45.81 08/26/2014 SEGUNDO SHRESTHA, ERIC R Ot V85.32 09/10/2014 SANYA SHRESTHA, DARSHNA J Ot 244.9 09/10/2014 SANYA SHRESTHA, DARSHAN J Ot 272.4 09/10/2014 SANYA SHRESTHA, DARSHAN J Ot 275.2 09/10/2014 SANYA SHRESTHA, DARSHAN J Ot 276.8 09/10/2014 SANYA SHRESTHA, DARSHAN Villasenor Ot 401.9 09/10/2014 SANYA SHRESTHA, DARSHAN Villasenor Ot 414.01 09/10/2014 SANYA SHRESTHA, DARSHAN Villasenor Ot 427.1 09/10/2014 SANYA SHRESTHA, DARSHAN Villasenor Ot 427.31 09/10/2014 SANYA SHRESTHA, DARSHAN Villasenor Ot V45.81 09/10/2014 SANYA SHRESTHA, DARSHAN Villasenor Ot V58.69 11/21/2014 SEGUNDO SHRESTHA, ERIC R Ot 429.2 ASCVD 11/21/2014 SEGUNDO SHRESTHA, ERIC R Ot 466.0 ACUTE BRONCHITIS 11/21/2014 SEGUNDO SHRESTHA, ERIC R Ot 473.9 CHRONIC SINUSITIS NOS 11/25/2014 ERIC MARRERO DO Ot 793.11 11/30/2014 ERIC MARRERO DO Ot 272.4 11/30/2014 ERIC MARRERO DO Ot 278.00 11/30/2014 ERIC MARRERO DO Ot 401.9 11/30/2014 ERIC MARRERO DO Ot 414.00 11/30/2014 ERIC MARRERO DO Ot 496 11/30/2014 ERIC MARRERO DO Ot 780.09 11/30/2014 ERIC MARRERO DO Ot 786.09 12/02/2014 Ot 401.9 12/02/2014 Ot 414.00 12/02/2014 Ot 786.09 12/02/2014 Ot 785.0 12/02/2014 Ot 785.1 12/02/2014 Ot 786.09 12/02/2014 SANYA SHRESTHA, DARSHAN Villasenor Ot 244.9 12/02/2014 SANYA SHRESTHA, DARSHAN Villasenor Ot 272.4 12/02/2014 SANYA SHRESTHA, DARSHAN Villasenor Ot 275.2 12/02/2014 SANYA SHRESTHA, DARSHAN Villasenor Ot 276.8 12/02/2014 SANYA SHRESTHA, DARSHAN Villasenor Ot 401.9 12/02/2014 SANYA SHRESTHA, DARSHAN Villasenor Ot 414.01 12/02/2014 SANYA SHRESTHA, DARSHAN Villasenor Ot 427.1 12/02/2014 SANYA SHRESTHA, DARSHAN Villasenor Ot 427.31 12/02/2014 SANYA SHRESTHA, DARSHAN Villasenor Ot V45.81 12/02/2014 SANYA SHRESTHA, DARSHAN Villasenor Ot V58.69 12/02/2014 ERIC MARRERO DO Ot 793.11 12/02/2014 ERIC MARRERO DO Ot 272.4 12/02/2014 ERIC MARRERO DO Ot 278.00 12/02/2014 ERIC MARRERO DO Ot 401.9 12/02/2014 ERIC MARRERO DO Ot 414.00 12/02/2014 ERIC MARRERO DO Ot 496 12/02/2014 ERIC MARRERO DO Ot 780.09 12/02/2014 ERIC MARRERO DO Ot 786.09 12/02/2014 ALMA DELIA SHRESTHA, JUANA Boo Ot 375.22 12/02/2014 JUANA FLANNERY MD Ot 473.9 12/02/2014 ERIC MARRERO DO Ot 272.4 12/02/2014 ERIC MARRERO DO Ot 278.00 12/02/2014 ERIC MARRERO DO Ot 401.9 12/02/2014 ERIC MARRERO DO Ot 414.00 12/02/2014 ERIC MARRERO DO Ot 496 12/02/2014 ERCI MARRERO DO Ot 780.09 12/02/2014 ERIC MARRERO DO Ot 786.09 12/06/2014 ERIC MARRERO DO Ot 793.11 12/07/2014 ALMA DELIA SHRESTAH, JUANA Boo Ot 375.22 12/07/2014 JUANA FLANNERY MD Ot 473.9 12/18/2014 Ot 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 12/18/2014 Ot 786.09 RESPIRATORY ABNORM NEC 12/24/2014 Ot 414.00 12/24/2014 Ot 433.10 12/24/2014 Ot 518.89 12/24/2014 Ot 786.09 01/28/2015 Ot 414.00 01/28/2015 Ot 433.10 01/28/2015 Ot 518.89 01/28/2015 Ot 786.09 02/01/2015 SANYA SHRESTHA, DARSHAN Villasenor Ot 272.4 02/01/2015 SANYA SHRESTHA, DARSHAN Villasenor Ot 401.9 02/01/2015 DARSHAN SEGUNDO MD Ot 414.00 02/01/2015 DARSHAN SEGUNDO MD Ot 433.10 02/24/2015 Ot 785.0 02/24/2015 Ot 785.1 02/24/2015 Ot 786.09 02/25/2015 SEGUNDO SHRESTHA, ERIC R Ot 244.9 02/25/2015 SEGUNDO SHRESTHA, ERIC R Ot 298.9 02/25/2015 SEGUNDO SHRESTHA, ERIC R Ot 311 02/25/2015 SEGUNDO SHRESTHA, ERIC R Ot 414.01 02/25/2015 SEGUNDO SHRESTHA, ERIC R Ot 427.31 02/25/2015 SEGUNDO SHRESTHA, ERIC R Ot 491.21 02/25/2015 SEGUNDO SHRESTHA, ERIC R Ot 530.81 02/25/2015 SEGUNDO SHRESTHA, ERIC R Ot 573.3 02/25/2015 SEGUNDO SHRESTHA, ERIC R Ot 584.9 02/25/2015 SEGUNDO SHRESTHA, ERIC R Ot 599.0 02/25/2015 SEGUNDO SHRESTHA, ERIC R Ot 692.9 02/25/2015 SEGUNDO SHRESTHA, ERIC R Ot 716.90 02/25/2015 SEGUNDO SHRESTHA, ERIC R Ot 733.00 02/25/2015 SEGUNDO SHRESTHA, ERIC R Ot 737.30 02/25/2015 SEGUNDO SHRESTHA, ERIC R Ot 782.3 02/25/2015 SEGUNDO SHRESTHA, ERIC R Ot 784.59 02/25/2015 SEGUNDO SHRESTHA, ERIC R Ot V12.54 02/25/2015 SEGUNDO SHRESTHA, ERIC R Ot V15.82 02/25/2015 SEGUNDO SHRESTHA, ERIC R Ot V17.3 02/25/2015 SEGUNDO SHRESTHA, ERIC R Ot V45.81 02/25/2015 SEGUNDO SHRESTHA, ERIC R Ot V45.89 02/25/2015 SEGUNDO SHRESTHA, ERIC R Ot V46.2 02/25/2015 SEGUNDO SHRESTHA, ERIC R Ot 733.90 02/25/2015 SEGUNDO SHRESTHA, ERIC R Ot 959.7 02/25/2015 SEGUNDO SHRESTHA, ERIC R Ot E000.8 02/25/2015 SEGUNDO SHRESTHA, ERIC R Ot E888.9 02/25/2015 Ot 272.4 02/25/2015 Ot 401.9 02/25/2015 Ot 414.00 02/25/2015 Ot 433.10 02/25/2015 SANYA SHRESTHA, DARSHAN J Ot 272.4 02/25/2015 SANYA SHRESTHA, DARSHAN J Ot 401.9 02/25/2015 SANYA SHRESTHA, DARSHAN J Ot 414.00 02/25/2015 SANYA SHRESTHA, DARSHAN J Ot 433.10 02/26/2015 SEGUNDO SHRESTHA, ERIC R Ot 244.9 02/26/2015 SEGUNDO SHRESTHA, ERIC R Ot 298.9 02/26/2015 SEGUNDO SHRESTHA, ERIC R Ot 311 02/26/2015 SEGUNDO SHRESTHA, ERIC R Ot 414.01 02/26/2015 SEGUNDO SHRESTHA, ERIC R Ot 427.31 02/26/2015 SEGUNDO SHRESTHA, ERIC R Ot 491.21 02/26/2015 SEGUNDO SHRESTHA, ERIC R Ot 530.81 02/26/2015 SEGUNDO SHRESTHA, ERIC R Ot 573.3 02/26/2015 SEGUNDO SHRESTHA, ERIC R Ot 584.9 02/26/2015 SEGUNDO SHRESTHA, ERIC R Ot 599.0 02/26/2015 SEGUNDO SHRESTHA, ERIC R Ot 692.9 02/26/2015 SEGUNDO SHRESTHA, ERIC R Ot 716.90 02/26/2015 SEGUNDO SHRESTHA, ERIC R Ot 733.00 02/26/2015 SEGUNDO SHRESTHA, ERIC R Ot 737.30 02/26/2015 SEGUNDO SHRESTHA, ERIC R Ot 782.3 02/26/2015 SEGUNDO SHRESTHA, ERIC R Ot 784.59 02/26/2015 SEGUNDO SHRESTHA, ERIC R Ot V12.54 02/26/2015 SEGUNDO SHRESTHA, ERIC R Ot V15.82 02/26/2015 SEGUNDO SHRESTHA, ERIC R Ot V17.3 02/26/2015 SEGUNDO SHRESTHA, ERIC R Ot V45.81 02/26/2015 SEGUNDO SHRESTHA, ERIC R Ot V45.89 02/26/2015 SEGUNDO SHRESTHA, ERIC R Ot V46.2 02/27/2015 SEGUNDO SHRESTHA, ERIC R Ot 244.9 02/27/2015 SEGUNDO SHRESTHA, ERIC R Ot 298.9 02/27/2015 SEGUNDO SHRESTHA, ERIC R Ot 311 02/27/2015 SEGUNDO SHRESTHA, ERIC R Ot 414.01 02/27/2015 SEGUNDO SHRESTHA, ERIC R Ot 427.31 02/27/2015 SEGUNDO SHRESTHA, ERIC R Ot 491.21 02/27/2015 SEGUNDO SHRESTHA, ERIC R Ot 530.81 02/27/2015 SEGUNDO SHRESTHA, ERIC R Ot 573.3 02/27/2015 SEGUNDO SHRESTHA, ERIC R Ot 584.9 02/27/2015 SEGUNDO SHRESTHA, ERIC R Ot 599.0 02/27/2015 SEGUNDO SHRESTHA, ERIC R Ot 692.9 02/27/2015 SEGUNDO SHRESTHA, ERIC R Ot 716.90 02/27/2015 SEGUNDO SHRESTHA, ERIC R Ot 733.00 02/27/2015 SEGUNDO SHRESTHA, ERIC R Ot 737.30 02/27/2015 SEGUNDO SHRESTHA, ERIC R Ot 782.3 02/27/2015 SEGUNDO SHRESTHA, ERIC R Ot 784.59 02/27/2015 SEGUNDO SHRESTHA, ERIC R Ot V12.54 02/27/2015 SEGUNDO SHRESTHA, ERIC R Ot V15.82 02/27/2015 SEGUNDO SHRESTHA, ERIC R Ot V17.3 02/27/2015 SEGUNDO SHRESTHA, ERIC R Ot V45.81 02/27/2015 SEGUNDO SHRESTHA, ERIC R Ot V45.89 02/27/2015 SEGUNDO SHRESTHA, ERIC R Ot V46.2 02/28/2015 ERIC MARRERO DO Ot 272.4 02/28/2015 ERIC MARRERO DO Ot 278.00 02/28/2015 ERIC MARRERO DO Ot 401.9 02/28/2015 ERIC MARRERO DO Ot 414.00 02/28/2015 ERIC MARRERO DO Ot 496 02/28/2015 ERIC MARRERO DO Ot 780.09 02/28/2015 ERIC MARRERO DO M Ot 786.09 02/28/2015 SEGUNDO SHRESTHA, ERIC R Ot 244.9 02/28/2015 SEGUNDO SHRESTHA, ERIC R Ot 298.9 02/28/2015 SEGUNDO SHRESTHA, ERIC R Ot 311 02/28/2015 SEGUNDO SHRESTHA, ERIC R Ot 414.01 02/28/2015 SEGUNDO SHRESTHA, ERIC R Ot 427.31 02/28/2015 SEGUNDO SHRESTHA, ERIC R Ot 491.21 02/28/2015 SEGUNDO SHRESTHA, ERIC R Ot 530.81 02/28/2015 SEGUNDO SHRESTHA, ERIC R Ot 573.3 02/28/2015 SEGUNDO SHRESTHA, ERIC R Ot 584.9 02/28/2015 SEGUNDO SHRESTHA, ERIC R Ot 599.0 02/28/2015 SEGUNDO SHRESTHA, ERIC R Ot 692.9 02/28/2015 SEGUNDO SHRESTHA, ERIC R Ot 716.90 02/28/2015 SEGUNDO SHRESTHA, ERIC R Ot 733.00 02/28/2015 SEGUNDO SHRESTHA, ERIC R Ot 737.30 02/28/2015 SEGUNDO SHRESTHA, ERIC R Ot 782.3 02/28/2015 SEGUNDO SHRESTHA, ERIC R Ot 784.59 02/28/2015 SEGUNDO SHRESTHA, ERIC R Ot V12.54 02/28/2015 SEGUNDO SHRESTHA, ERIC R Ot V15.82 02/28/2015 SEGUNDO SHRESTHA, ERIC R Ot V17.3 02/28/2015 SEGUNDO SHRESTHA, ERIC R Ot V45.81 02/28/2015 SEGUNDO SHRESTHA, ERIC R Ot V45.89 02/28/2015 SEGUNDO SHRESTHA, ERIC R Ot V46.2 03/01/2015 SEGUNDO SHRESTHA, ERIC R Ot 244.9 03/01/2015 SEGUNDO SHRESTHA, ERIC R Ot 298.9 03/01/2015 SEGUNDO SHRESTHA, ERIC R Ot 311 03/01/2015 SEGUNDO SHRESTHA, ERIC R Ot 414.01 03/01/2015 SEGUNDO SHRESTHA, ERIC R Ot 427.31 03/01/2015 SEGUNDO SHRESTHA, ERIC R Ot 491.21 03/01/2015 SEGUNDO SHRESTHA, ERIC R Ot 530.81 03/01/2015 SEGUNDO SHRESTHA, ERIC R Ot 573.3 03/01/2015 SEGUNDO SHRESTHA, ERIC R Ot 584.9 03/01/2015 SEGUNDO SHRESTHA, ERIC R Ot 599.0 03/01/2015 SEGUNDO SHRESTHA, ERIC R Ot 692.9 03/01/2015 SEGUNDO SHRESTHA, ERIC R Ot 716.90 03/01/2015 SEGUNDO SHRESTHA, ERIC R Ot 733.00 03/01/2015 SEGUNDO SHRESTHA, ERIC R Ot 737.30 03/01/2015 SEGUNDO SHRESTHA, ERIC R Ot 782.3 03/01/2015 SEGUNDO SHRESTHA, ERCI R Ot 784.59 03/01/2015 SEGUNDO SHRESTHA, ERIC R Ot V12.54 03/01/2015 SEGUNDO SHRESTHA, ERIC R Ot V15.82 03/01/2015 SEGUNDO SHRESTHA, ERIC R Ot V17.3 03/01/2015 SEGUNDO SHRESTHA, ERIC R Ot V45.81 03/01/2015 SEGUNDO SHRESTHA, ERIC R Ot V45.89 03/01/2015 SEGUNDO SHRESTHA, ERIC R Ot V46.2 03/02/2015 SEGUNDO SHRESTHA, ERIC R Ot 244.9 03/02/2015 SEGUNDO SHRESTHA, ERIC R Ot 298.9 03/02/2015 SEGUNDO SHRESTHA, ERIC R Ot 311 03/02/2015 SEGUNDO SHRESTHA, ERIC R Ot 414.01 03/02/2015 SEGUNDO SHRESTHA, ERIC R Ot 427.31 03/02/2015 SEGUNDO SHRESTHA, ERIC R Ot 491.21 03/02/2015 SEGUNDO SHRESTHA, ERIC R Ot 530.81 03/02/2015 SEGUNDO SHRESTHA, ERIC R Ot 573.3 03/02/2015 SEGUNDO SHRESTHA, ERIC R Ot 584.9 03/02/2015 SEGUNDO SHRESTHA, ERIC R Ot 599.0 03/02/2015 SEGUNDO SHRESTHA, ERIC R Ot 692.9 03/02/2015 SEGUNDO SHRESTHA, ERIC R Ot 716.90 03/02/2015 SEGUNDO SHRESTHA, ERIC R Ot 733.00 03/02/2015 SEGUNDO SHRESTHA, ERIC R Ot 737.30 03/02/2015 SEGUNDO SHRSETHA, ERIC R Ot 782.3 03/02/2015 SEGUNDO SHRESTHA, ERIC R Ot 784.59 03/02/2015 SEGUNDO SHRESTHA, ERIC R Ot V12.54 03/02/2015 SEGUNDO SHRESTHA, ERIC R Ot V15.82 03/02/2015 SEGUNDO SHRESTHA, ERIC R Ot V17.3 03/02/2015 SEGUNDO SHRESTHA, ERIC R Ot V45.81 03/02/2015 SEGUNDO SHRESTHA, ERIC R Ot V45.89 03/02/2015 SEGUNDO SHRESTHA, ERIC R Ot V46.2 03/02/2015 SEGUNDO SHRESTHA, ERIC R Ot 244.9 03/02/2015 SEGUNDO SHRESTHA, ERIC R Ot 298.9 03/02/2015 SEGUNDO SHRESTHA, ERIC R Ot 311 03/02/2015 SEGUNDO SHRESTHA, ERIC R Ot 414.01 03/02/2015 SEGUNDO SHRESTHA, ERIC R Ot 427.31 03/02/2015 SEGUNDO SHRESTHA, ERIC R Ot 491.21 03/02/2015 SEGUNDO SHRESTHA, ERIC R Ot 530.81 03/02/2015 SEGUNDO SHRESTHA, ERIC R Ot 573.3 03/02/2015 SEGUNDO SHRESTHA, ERIC R Ot 584.9 03/02/2015 SEGUNDO SHRESTHA, ERIC R Ot 599.0 03/02/2015 SEGUNDO SHRESTHA, ERIC R Ot 692.9 03/02/2015 SEGUNDO SHRESTHA, ERIC R Ot 716.90 03/02/2015 SEGUNDO SHRESTHA, ERIC R Ot 733.00 03/02/2015 SEGUNDO SHRESTHA, ERIC R Ot 737.30 03/02/2015 SEGUNDO SHRESTHA, ERIC R Ot 782.3 03/02/2015 SEGUNDO SHRESTHA, ERIC R Ot 784.59 03/02/2015 SEGUNDO SHRESTHA, ERIC R Ot V12.54 03/02/2015 SEGUNDO SHRESTHA, ERIC R Ot V15.82 03/02/2015 SEGUNDO SHRESTHA, ERIC R Ot V17.3 03/02/2015 SEGUNDO SHRESTHA, ERIC R Ot V45.81 03/02/2015 SEGUNDO SHRESTHA, ERIC R Ot V45.89 03/02/2015 SEGUNDO SHRESTHA, ERIC R Ot V46.2 03/03/2015 SEGUNDO SHRESTHA, ERIC R Ot 244.9 03/03/2015 SEGUNDO SHRESTHA, ERIC R Ot 298.9 03/03/2015 SEGUNDO SHRESTHA, ERIC R Ot 311 03/03/2015 SEGUNDO SHRESTHA, ERIC R Ot 414.01 03/03/2015 SEGUNDO SHRESTHA, ERIC R Ot 427.31 03/03/2015 SEGUNDO SHRESTHA, ERIC R Ot 491.21 03/03/2015 SEGUNDO SHRESTHA, ERIC R Ot 530.81 03/03/2015 SEGUNDO SHRESTHA, ERIC R Ot 573.3 03/03/2015 SEGUNDO SHRESTHA, ERIC R Ot 584.9 03/03/2015 SEGUNDO SHRESTHA, ERIC R Ot 599.0 03/03/2015 SEGUNDO SHRESTHA, ERIC R Ot 692.9 03/03/2015 SEGUNDO SHRESTHA, ERIC R Ot 716.90 03/03/2015 SEGUNDO SHRESTHA, ERIC R Ot 733.00 03/03/2015 SEGUNDO SHRESTHA, ERIC R Ot 737.30 03/03/2015 SEGUNDO SHRESTHA, ERIC R Ot 782.3 03/03/2015 SEGUNDO SHRESTHA, ERIC R Ot 784.59 03/03/2015 SEGUNDO SHRESTHA, ERIC R Ot V12.54 03/03/2015 SEGUNDO SHRESTHA, ERIC R Ot V15.82 03/03/2015 SEGUNDO SHRESTHA, ERIC R Ot V17.3 03/03/2015 SEGUNDO SHRESTHA, ERIC R Ot V45.81 03/03/2015 SEGUNDO SHRESTHA, ERIC R Ot V45.89 03/03/2015 SEGUNDO SHRESTHA, ERIC R Ot V46.2 03/03/2015 SEGUNDO SHRESTHA, ERIC R Ot 244.9 03/03/2015 SEGUNDO SHRESTHA, ERIC R Ot 298.9 03/03/2015 SEGUNDO SHRESTHA, ERIC R Ot 311 03/03/2015 SEGUNDO SHRESTHA, ERIC R Ot 414.01 03/03/2015 SEGUNDO SHRESTHA, ERIC R Ot 427.31 03/03/2015 SEGUNDO SHRESTHA, ERIC R Ot 491.21 03/03/2015 SEGUNDO SHRESTHA, ERIC R Ot 530.81 03/03/2015 SEGUNDO SHRESTHA, ERIC R Ot 573.3 03/03/2015 SEGUNDO SHRESTHA, ERIC R Ot 584.9 03/03/2015 SEGUNDO SHRESTHA, ERIC R Ot 599.0 03/03/2015 SEGUNDO SHRESTHA, ERIC R Ot 692.9 03/03/2015 SEGUNDO SHRESTHA, ERIC R Ot 716.90 03/03/2015 SEGUNDO SHRESTHA, ERIC R Ot 733.00 03/03/2015 SEGUNDO SHRESTHA, ERIC R Ot 737.30 03/03/2015 SEGUNDO SHRESTHA, ERIC R Ot 782.3 03/03/2015 SEGUNDO SHRESTHA, ERIC R Ot 784.59 03/03/2015 SEGUNDO SHRESTHA, ERIC R Ot V12.54 03/03/2015 SEGUNDO SHRESTHA, ERIC R Ot V15.82 03/03/2015 SEGUNDO SHRESTHA, ERIC R Ot V17.3 03/03/2015 SEGUNDO SHRESTHA, ERIC R Ot V45.81 03/03/2015 SEGUNDO SHRESTHA, ERIC R Ot V45.89 03/03/2015 SEGUNDO SHRESTHA, ERIC R Ot V46.2 03/04/2015 SEGUNDO SHRESTHA, ERIC R Ot 244.9 03/04/2015 SEGUNDO SHRESTHA, ERIC R Ot 298.9 03/04/2015 SEGUNDO SHRESTHA, ERIC R Ot 311 03/04/2015 SEGUNDO SHRESTHA, ERIC R Ot 414.01 03/04/2015 SEGUNDO SHRESTHA, ERIC R Ot 427.31 03/04/2015 SEGUNDO SHRESTHA, ERIC R Ot 491.21 03/04/2015 SEGUNDO SHRESTHA, ERIC R Ot 530.81 03/04/2015 SEGUNDO SHRESTHA, ERIC R Ot 573.3 03/04/2015 SEGUNDO SHRESTHA, ERIC R Ot 584.9 03/04/2015 SEGUNDO SHRESTHA, ERIC R Ot 599.0 03/04/2015 SEGUNDO SHRESTHA, ERIC R Ot 692.9 03/04/2015 SEGUNDO SHRESTHA, ERIC R Ot 716.90 03/04/2015 SEGUNDO SHRESTHA, ERIC R Ot 733.00 03/04/2015 SEGUNDO SHRESTHA, ERIC R Ot 737.30 03/04/2015 SEGUNDO SHRESTHA, ERIC R Ot 782.3 03/04/2015 SEGUNDO SHRESTHA, ERIC R Ot 784.59 03/04/2015 SEGUNDO SHRESTHA, ERIC R Ot V12.54 03/04/2015 SEGUNDO SHRESTHA, ERIC R Ot V15.82 03/04/2015 SEGUNDO SHRESTHA, ERIC R Ot V17.3 03/04/2015 SEGUNDO SHRESTHA, ERIC R Ot V45.81 03/04/2015 SEGUNDO SHRESTHA, ERIC R Ot V45.89 03/04/2015 SEGUNDO SHRESTHA, ERIC R Ot V46.2 03/04/2015 SEGUNDO SHRESTHA, ERIC R Ot 244.9 03/04/2015 SEGUNDO SHRESTHA, ERIC R Ot 298.9 03/04/2015 SEGUNDO SHRESTHA, ERIC R Ot 311 03/04/2015 SEGUNDO SHRESTHA, ERIC R Ot 414.01 03/04/2015 SEGUNDO SHRESTHA, ERIC R Ot 427.31 03/04/2015 SEGUNDO SHRESTHA, ERIC R Ot 491.21 03/04/2015 SEGUNDO SHRESTHA, ERIC R Ot 530.81 03/04/2015 SEGUNDO SHRESTHA, ERIC R Ot 573.3 03/04/2015 SEGUNDO SHRESTHA, ERIC R Ot 584.9 03/04/2015 SEGUNDO SHRESTHA, ERIC R Ot 599.0 03/04/2015 SEGUNDO SHRESTHA, ERIC R Ot 692.9 03/04/2015 SEGUNDO SHRESTHA, ERIC R Ot 716.90 03/04/2015 SEGUNDO SHRESTHA, ERIC R Ot 733.00 03/04/2015 SEGUNDO SHRESTHA, ERIC R Ot 737.30 03/04/2015 SEGUNDO SHRESTHA, ERIC R Ot 782.3 03/04/2015 SEGUNDO SHRESTHA, ERIC R Ot 784.59 03/04/2015 SEGUNDO SHRESTHA, ERIC R Ot V12.09 03/04/2015 SEGUNDO SHRESTHA, ERIC R Ot V12.54 03/04/2015 SEGUNDO SHRESTHA, ERIC R Ot V15.82 03/04/2015 SEGUNDO SHRESTHA, ERIC R Ot V17.3 03/04/2015 SEGUNDO SHRESTHA, ERIC R Ot V45.81 03/04/2015 SEGUNDO SHRESTHA, ERIC R Ot V45.89 03/04/2015 SEGUNDO SHRESTHA, ERIC R Ot V46.2 03/26/2015 ERIC MARRERO DO Ot 272.4 03/26/2015 ERIC MARRERO DO M Ot 278.00 03/26/2015 ERIC MARRERO DO M Ot 401.9 03/26/2015 ERIC MARRERO DO Ot 414.00 03/26/2015 ERIC MARRERO DO M Ot 496 03/26/2015 ERIC MARRERO DO M Ot 780.09 03/26/2015 ERIC MARRERO DO M Ot 786.09 03/26/2015 SEGUNDO SHRESTHA, ERIC R Ot 733.90 03/26/2015 SEGUNDO SHRESTHA, ERIC R Ot 959.7 03/26/2015 SEGUNDO SHRESTHA, ERIC R Ot E000.8 03/26/2015 SEGUNDO SHRESTHA, ERIC R Ot E888.9 06/21/2015 KRISTINE SHRESTHA, GENIA Villasenor Ot 724.4 06/23/2015 KRISTINE SHRESTHA, GENIA Villasenor Ot 724.4 08/03/2015 KRISTINE SHRESTHA, GENIA Villasenor Ot 722.52 08/03/2015 KRISTINE SHRESTHA, GENIA Villasenor Ot 737.30 09/12/2015 ERIC MARRERO DO Ot G47.34 IDIO SLEEP RELATED NONOBSTRUCTIVE ALVEOL 09/12/2015 ERIC MARRERO DO Ot J44.9 CHRONIC OBSTRUCTIVE PULMONARY DISEASE, U 09/12/2015 ERIC MARRERO DO Ot R06.83 SNORING 09/13/2015 KRISTINE SHRESTHA, GENIA Villasenor Ot 722.52 09/13/2015 KRISTINE SHRESTHA, GENIA Villasenor Ot 737.30 05/08/2016 Ot 414.00 CORON ATHEROSCLER NOS TYPE VESSEL, NATIV 05/08/2016 Ot 433.10 CAROTID ARTERY OCCLUSION W O CEREBRAL IN 05/08/2016 Ot 518.89 OTHER DISEASES OF LUNG, NEC 05/08/2016 Ot 786.09 RESPIRATORY ABNORM NEC 05/08/2016 DARSHAN SEGUNDO MD Ot 272.4 HYPERLIPIDEMIA NEC/NOS 05/08/2016 DARSHAN SEGUNDO MD Ot 401.9 HYPERTENSION NOS 05/08/2016 DARSHAN SEGUNDO MD Ot 414.00 CORON ATHEROSCLER NOS TYPE VESSEL, NATIV 05/08/2016 DARSHAN SEGUNDO MD Ot 433.10 CAROTID ARTERY OCCLUSION W O CEREBRAL IN 05/08/2016 SEGUNDO SHRESTHA, ERIC R Ot 733.90 BONE CARTILAGE DIS NOS 05/08/2016 SEGUNDO SHRESTHA, ERIC R Ot 959.7 LOWER LEG INJURY NOS 05/08/2016 SEGUNDO SHRESTHA, ERIC R Ot E000.8 OTHER EXTERNAL CAUSE STATUS 05/08/2016 SEGUNDO SHRESTHA, ERIC R Ot E888.9 FALL NOS 05/08/2016 KRISTINE SHRESTHA, GENIA Villasenor Ot 722.52 LUMB/LUMBOSAC DISC DEGEN 05/08/2016 GENIA CARMONA MD Ot 737.30 IDIOPATHIC SCOLIOSIS 05/09/2016 SCOUT GRIJALVA Ot I25.10 ATHSCL HEART DISEASE OF [place] CORONARY 05/09/2016 SCOUT GRIJALVA Ot E78.5 HYPERLIPIDEMIA, UNSPECIFIED 05/09/2016 SCOUT GRIJALVA Ot I10 ESSENTIAL (PRIMARY) HYPERTENSION 05/09/2016 SCOUT GRIJALVA Ot I25.10 ATHSCL HEART DISEASE OF [place] CORONARY 05/09/2016 SCOUT GRIJALVA Ot I65.23 OCCLUSION AND STENOSIS OF [place] 05/09/2016 SCOUT GRIJALVA Ot E78.5 HYPERLIPIDEMIA, UNSPECIFIED 05/09/2016 SCOUT GRIJALVA Ot I10 ESSENTIAL (PRIMARY) HYPERTENSION 05/09/2016 SCOUT GRIJALVA Ot I25.10 ATHSCL HEART DISEASE OF [place] CORONARY 05/09/2016 SCOUT GRIJALVA Ot I65.23 OCCLUSION AND STENOSIS OF [place]AL [place] 06/07/2016 SCOUT GRIJALVA Ot E78.5 HYPERLIPIDEMIA, UNSPECIFIED 06/07/2016 SCOUT GRIJALVA Ot I10 ESSENTIAL (PRIMARY) HYPERTENSION 06/07/2016 SCOUT GRIJALVA Ot I25.10 ATHSCL HEART DISEASE OF [place] CORONARY 06/07/2016 DEIDRE GRIJALVATH Magdiel Ot I65.23 OCCLUSION AND STENOSIS OF [place] 06/19/2016 MOI FARLEY SCOUT Veloz Ot E78.5 HYPERLIPIDEMIA, UNSPECIFIED 06/19/2016 MOI FARLEY SCOUT Veloz Ot I10 ESSENTIAL (PRIMARY) HYPERTENSION 06/19/2016 MOI FARLEY SCOUT Veloz Ot I25.10 ATHSCL HEART DISEASE OF [place] CORONARY 06/19/2016 MOI FARLEY SCOUT Veloz Ot I65.23 OCCLUSION AND STENOSIS OF [place] 06/19/2016 MOI FARLEY SCOUT Veloz Ot E78.5 HYPERLIPIDEMIA, UNSPECIFIED 06/19/2016 MOI FARLEY SCOUT Magdiel Ot I10 ESSENTIAL (PRIMARY) HYPERTENSION 06/19/2016 MOI FARLEY SCOUT Veloz Ot I25.10 ATHSCL HEART DISEASE OF [place] CORONARY 06/19/2016 MOI FARLEY SCOUT Veloz Ot I65.23 OCCLUSION AND STENOSIS OF [place] 06/26/2016 Ot 414.00 CORON ATHEROSCLER NOS TYPE VESSEL, NATIV 06/26/2016 Ot 433.10 CAROTID ARTERY OCCLUSION W O CEREBRAL IN 06/26/2016 Ot 518.89 OTHER DISEASES OF LUNG, NEC 06/26/2016 Ot 786.09 RESPIRATORY ABNORM NEC 06/26/2016 SANYA SHRESTHA, DARSHAN Villasenor Ot 272.4 HYPERLIPIDEMIA NEC/NOS 06/26/2016 SANYA SHRESTHA, DARSHAN Villasenor Ot 401.9 HYPERTENSION NOS 06/26/2016 DARSHAN SEGUNDO MD Ot 414.00 CORON ATHEROSCLER NOS TYPE VESSEL, NATIV 06/26/2016 DARSHAN SEGUNDO MD Ot 433.10 CAROTID ARTERY OCCLUSION W O CEREBRAL IN 06/26/2016 SEGUNDO SHRESTHA, ERIC Jackson Ot 733.90 BONE CARTILAGE DIS NOS 06/26/2016 ERIC RAYMOND MD R Ot 959.7 LOWER LEG INJURY NOS 06/26/2016 ERIC RAYMOND MD R Ot E000.8 OTHER EXTERNAL CAUSE STATUS 06/26/2016 ERIC RAYMOND MD Ot E888.9 FALL NOS 06/26/2016 KRISTINE SHRESTHA, GENIA Villasenor Ot 722.52 LUMB/LUMBOSAC DISC DEGEN 06/26/2016 GENIA CARMONA MD Ot 737.30 IDIOPATHIC SCOLIOSIS 06/26/2016 SCOUT GRIJALVA Ot E78.5 HYPERLIPIDEMIA, UNSPECIFIED 06/26/2016 SCOUT GRIJALVA Ot I10 ESSENTIAL (PRIMARY) HYPERTENSION 06/26/2016 SCOUT GRIJALVA Ot I25.10 ATHSCL HEART DISEASE OF [place] CORONARY 06/26/2016 SCOUT GRIJALVA Ot I65.23 OCCLUSION AND STENOSIS OF [place] 06/26/2016 SCOUT GRIJALVA Ot E78.5 HYPERLIPIDEMIA, UNSPECIFIED 06/26/2016 SCOUT GRIJALVA Ot I10 ESSENTIAL (PRIMARY) HYPERTENSION 06/26/2016 SCOUT GRIJALVA Ot I25.10 ATHSCL HEART DISEASE OF [place] CORONARY 06/26/2016 SCOUT GRIJALVA Ot I65.23 OCCLUSION AND STENOSIS OF [place] 06/27/2016 Ot 414.00 CORON ATHEROSCLER NOS TYPE VESSEL, NATIV 06/27/2016 Ot 433.10 CAROTID ARTERY OCCLUSION W O CEREBRAL IN 06/27/2016 Ot 518.89 OTHER DISEASES OF LUNG, NEC 06/27/2016 Ot 786.09 RESPIRATORY ABNORM NEC 06/27/2016 SANYA SHRESTHA, DARSHAN Villasenor Ot 272.4 HYPERLIPIDEMIA NEC/NOS 06/27/2016 SANYA SHRESTHA, DARSHAN Villasenor Ot 401.9 HYPERTENSION NOS 06/27/2016 DARSHAN SEGUNDO MD Ot 414.00 CORON ATHEROSCLER NOS TYPE VESSEL, NATIV 06/27/2016 DARSHAN SEGUNDO MD Ot 433.10 CAROTID ARTERY OCCLUSION W O CEREBRAL IN 06/27/2016 SEGUNDO SHRESTHA, ERIC R Ot 733.90 BONE CARTILAGE DIS NOS 06/27/2016 SEGUNDO SHRESTHA, ERIC R Ot 959.7 LOWER LEG INJURY NOS 06/27/2016 SEGUNDO SHRESTHA, ERIC R Ot E000.8 OTHER EXTERNAL CAUSE STATUS 06/27/2016 ERIC RAYMOND MD Ot E888.9 FALL NOS 06/27/2016 KRISTINE SHRESTHA, GENIA Villasenor Ot 722.52 LUMB/LUMBOSAC DISC DEGEN 06/27/2016 GENIA CARMONA MD Ot 737.30 IDIOPATHIC SCOLIOSIS 06/27/2016 SCOUT GRIJALVA Ot E78.5 HYPERLIPIDEMIA, UNSPECIFIED 06/27/2016 SCOUT GRIJALVA Ot I10 ESSENTIAL (PRIMARY) HYPERTENSION 06/27/2016 SCOUT GRIJALVA Ot I25.10 ATHSCL HEART DISEASE OF [place] CORONARY 06/27/2016 SCOUT GRIJALVA Ot I65.23 OCCLUSION AND STENOSIS OF [place] 06/27/2016 CSOUT GRIJALVA Ot E78.5 HYPERLIPIDEMIA, UNSPECIFIED 06/27/2016 SCOUT GRIJALVA Ot I10 ESSENTIAL (PRIMARY) HYPERTENSION 06/27/2016 SCOUT GRIJALVA Ot I25.10 ATHSCL HEART DISEASE OF [place] CORONARY 06/27/2016 SCOUT GRIJALVA Ot I65.23 OCCLUSION AND STENOSIS OF [place] 07/03/2016 ERIC RAYMOND MD R Ot B95.2 ENTEROCOCCUS THE CAUSE OF DISEASES CL 07/03/2016 ERIC RAYMOND MD R Ot B96.20 UNSP ESCHERICHIA COLI THE CAUSE OF DI 07/03/2016 ERIC RAYMOND MD R Ot D64.9 ANEMIA, UNSPECIFIED 07/03/2016 ERIC RAYMOND MD R Ot E03.9 HYPOTHYROIDISM, UNSPECIFIED 07/03/2016 ERIC RAYMOND MD Ot E78.5 HYPERLIPIDEMIA, UNSPECIFIED 07/03/2016 ERIC RAYMOND MD R Ot E87.1 HYPO-OSMOLALITY AND HYPONATREMIA 07/03/2016 ERIC RAYMOND MD Ot F32.9 MAJOR DEPRESSIVE DISORDER, SINGLE EPISOD 07/03/2016 ERIC RAYMOND MD R Ot G47.00 INSOMNIA, UNSPECIFIED 07/03/2016 ERIC RAYMOND MD R Ot I08.1 RHEUMATIC DISORDERS OF BOTH [place] AND T 07/03/2016 ERIC RAYMOND MD R Ot I12.9 HYPERTENSIVE CHRONIC KIDNEY DISEASE W ST 07/03/2016 ERIC RAYMOND MD R Ot I25.10 ATHSCL HEART DISEASE OF [place] CORONARY 07/03/2016 ERIC RAYMOND MD R Ot I48.91 UNSPECIFIED ATRIAL FIBRILLATION 07/03/2016 ERIC RAYMOND MD R Ot J44.9 CHRONIC OBSTRUCTIVE PULMONARY DISEASE, U 07/03/2016 ERIC RAYMOND MD R Ot J81.1 CHRONIC PULMONARY EDEMA 07/03/2016 ESGUNDO SHRESTHA, ERIC Jackson Ot M54.9 DORSALGIA, UNSPECIFIED 07/03/2016 ERIC RAYMOND MD Ot M81.0 AGE-RELATED OSTEOPOROSIS W/O CURRENT PAT 07/03/2016 ERIC RAYMOND MD Ot N17.9 ACUTE KIDNEY FAILURE, UNSPECIFIED 07/03/2016 ERIC RAYMOND MD, Ot N18.9 CHRONIC KIDNEY DISEASE, UNSPECIFIED 07/03/2016 ERIC RAYMOND MD Ot N39.0 URINARY TRACT INFECTION, SITE NOT SPECIF 07/03/2016 ERIC RAYMOND MD Ot Z86.19 PERSONAL HISTORY OF OTHER INFECTIOUS AND 07/03/2016 ERIC RAYMOND MD Ot Z86.73 PRSNL HX OF TIA (TIA), AND CEREB INFRC W 07/03/2016 ERIC RAYMOND MD Ot Z87.891 PERSONAL HISTORY OF NICOTINE DEPENDENCE 07/03/2016 ERIC RAYMOND MD Ot Z95.1 PRESENCE OF AORTOCORONARY BYPASS GRAFT 07/16/2016 SCOUT GRIJALVA Ot E78.5 HYPERLIPIDEMIA, UNSPECIFIED 07/16/2016 SCOUT GRIJALVA Ot I10 ESSENTIAL (PRIMARY) HYPERTENSION 07/16/2016 SCOUT GRIJALVA Ot I25.10 ATHSCL HEART DISEASE OF [place] CORONARY 07/16/2016 SCOUT GRIJALVA Ot I65.23 OCCLUSION AND STENOSIS OF BILATERAL [place] 07/25/2016 SCOUT GRIJALVA Ot E78.5 HYPERLIPIDEMIA, UNSPECIFIED 07/25/2016 SCOUT GRIJALVA Ot I10 ESSENTIAL (PRIMARY) HYPERTENSION 07/25/2016 SCOUT GRIJALVA Ot I25.10 ATHSCL HEART DISEASE OF [place] CORONARY 07/25/2016 SCOUT GRIJALVA Ot I65.23 OCCLUSION AND STENOSIS OF [place]ILATERAL [place] 08/24/2016 SCOUT GRIJALVA Ot E78.5 HYPERLIPIDEMIA, UNSPECIFIED 08/24/2016 SCOUT GRIJALVA Ot I10 ESSENTIAL (PRIMARY) HYPERTENSION 08/24/2016 SCOUT GRIJALVA Ot I25.10 ATHSCL HEART DISEASE OF [place] CORONARY 08/24/2016 SCOUT GRIJALVA Ot I65.23 OCCLUSION AND STENOSIS OF [place]ILATERAL [place] 08/30/2016 Ot D64.9 ANEMIA, UNSPECIFIED 08/30/2016 Ot E11.22 TYPE 2 DIABETES MELLITUS W DIABETIC POT FEEDER 08/30/2016 Ot I12.9 HYPERTENSIVE CHRONIC KIDNEY DISEASE W ST 08/30/2016 Ot J44.9 CHRONIC OBSTRUCTIVE PULMONARY DISEASE, U 08/30/2016 Ot N18.3 CHRONIC KIDNEY DISEASE, STAGE 3 (MODERAT 08/30/2016 Ot N39.0 URINARY TRACT INFECTION, SITE NOT SPECIF 08/31/2016 Ot D64.9 ANEMIA, UNSPECIFIED 08/31/2016 Ot E11.22 TYPE 2 DIABETES MELLITUS W DIABETIC POT FEEDER 08/31/2016 Ot I12.9 HYPERTENSIVE CHRONIC KIDNEY DISEASE W ST 08/31/2016 Ot J44.9 CHRONIC OBSTRUCTIVE PULMONARY DISEASE, U 08/31/2016 Ot N18.3 CHRONIC KIDNEY DISEASE, STAGE 3 (MODERAT 08/31/2016 Ot N39.0 URINARY TRACT INFECTION, SITE NOT SPECIF 09/25/2016 Ot D64.9 ANEMIA, UNSPECIFIED 09/25/2016 Ot E11.22 TYPE 2 DIABETES MELLITUS W DIABETIC POT FEEDER 09/25/2016 Ot I12.9 HYPERTENSIVE CHRONIC KIDNEY DISEASE W ST 09/25/2016 Ot J44.9 CHRONIC OBSTRUCTIVE PULMONARY DISEASE, U 09/25/2016 Ot N18.3 CHRONIC KIDNEY DISEASE, STAGE 3 (MODERAT 09/25/2016 Ot N39.0 URINARY TRACT INFECTION, SITE NOT SPECIF 09/27/2016 Ot 300.00 09/27/2016 Ot 786.01 09/27/2016 Ot 786.05 09/27/2016 Ot V45.81 09/27/2016 Ot V58.69 09/27/2016 Ot 785.0 TACHYCARDIA NOS 09/27/2016 Ot 785.1 PALPITATIONS 09/27/2016 Ot 786.09 RESPIRATORY ABNORM NEC 09/27/2016 ERIC MARRERO DO Ot 272.4 HYPERLIPIDEMIA NEC/NOS 09/27/2016 ERIC MARRERO DO Ot 278.00 OBESITY, NOS 09/27/2016 ERIC MARRERO DO Ot 401.9 HYPERTENSION NOS 09/27/2016 ERIC MARRERO DO Ot 414.00 CORON ATHEROSCLER NOS TYPE VESSEL, NATIV 09/27/2016 ERIC MARRERO DO Ot 496 CHR AIRWAY OBSTRUCT NEC 09/27/2016 ERIC MARRERO DO Ot 780.09 OTHER ALTERATION OF CONSCIOUSNESS 09/27/2016 ERIC MARRERO DO Ot 786.09 RESPIRATORY ABNORM NEC 09/30/2016 AYUSH SEXTON DO Ot B00.1 HERPESVIRAL VESICULAR DERMATITIS 09/30/2016 AYUSH SEXTON DO Ot D72.829 ELEVATED WHITE BLOOD CELL COUNT, UNSPECI 09/30/2016 AYUSH SEXTON DO Ot E03.9 HYPOTHYROIDISM, UNSPECIFIED 09/30/2016 AYUSH SEXTON DO Ot E78.5 HYPERLIPIDEMIA, UNSPECIFIED 09/30/2016 AYUSH SEXTON DO Ot E86.0 DEHYDRATION 09/30/2016 AYUSH SEXTON DO Ot E87.1 HYPO-OSMOLALITY AND HYPONATREMIA 09/30/2016 AYUSH SEXTON DO Ot F32.9 MAJOR DEPRESSIVE DISORDER, SINGLE EPISOD 09/30/2016 AYUSH SEXTON DO Ot I08.3 COMB RHEUMATIC DISORD OF [place], AORTIC 09/30/2016 AYUSH SEXTON DO Ot I13.0 HYP HRT CHR KDNY DIS W HRT FAIL AND ST 09/30/2016 AYUSH SEXTON DO Ot I25.10 ATHSCL HEART DISEASE OF [place] CORONARY 09/30/2016 AYUSH SEXTON DO Ot I47.1 SUPRAVENTRICULAR TACHYCARDIA 09/30/2016 AYUSH SEXTON DO Ot I48.91 UNSPECIFIED ATRIAL FIBRILLATION 09/30/2016 AYUSH SEXTON DO Ot I50.9 HEART FAILURE, UNSPECIFIED 09/30/2016 AYUSH SEXTON DO Ot I65.23 OCCLUSION AND STENOSIS OF [place]ATERAL [place] 09/30/2016 AYUSH SEXTON DO Ot J18.9 PNEUMONIA, UNSPECIFIED ORGANISM 09/30/2016 AYUSH SEXTON DO Ot J44.0 CHRONIC OBSTRUCTIVE PULMON DISEASE W ACU 09/30/2016 AYUSH SEXTON DO Ot J44.1 CHRONIC OBSTRUCTIVE PULMONARY DISEASE W 09/30/2016 AYUSH SEXTON DO Ot K21.9 GASTRO-ESOPHAGEAL REFLUX DISEASE WITHOUT 09/30/2016 AYUSH SEXTON DO Ot M19.90 UNSPECIFIED OSTEOARTHRITIS, UNSPECIFIED 09/30/2016 AYUSH SEXTON DO Ot M81.0 AGE-RELATED OSTEOPOROSIS W/O CURRENT PAT 09/30/2016 AYUSH SEXTON DO Ot N18.9 CHRONIC KIDNEY DISEASE, UNSPECIFIED 09/30/2016 NAYLA SEXTON DOI Ot Z23 ENCOUNTER FOR IMMUNIZATION 09/30/2016 AYUSH SEXTON DO Ot Z86.73 PRSNL HX OF TIA (TIA), AND CEREB INFRC W 09/30/2016 AYUSH SEXTON DO Ot Z87.891 PERSONAL HISTORY OF NICOTINE DEPENDENCE 09/30/2016 AYUSH SEXTON DO Ot Z95.1 PRESENCE OF AORTOCORONARY BYPASS GRAFT 11/05/2016 Ot D64.9 ANEMIA, UNSPECIFIED 11/05/2016 Ot E11.22 TYPE 2 DIABETES MELLITUS W DIABETIC POT FEEDER 11/05/2016 Ot I12.9 HYPERTENSIVE CHRONIC KIDNEY DISEASE W ST 11/05/2016 Ot J44.9 CHRONIC OBSTRUCTIVE PULMONARY DISEASE, U 11/05/2016 Ot N18.3 CHRONIC KIDNEY DISEASE, STAGE 3 (MODERAT 11/05/2016 Ot N39.0 URINARY TRACT INFECTION, SITE NOT SPECIF 06/03/2017 STEVE MELÉNDEZ MD Ot E03.9 HYPOTHYROIDISM, UNSPECIFIED 06/03/2017 STEVE MELÉNDEZ MD Ot F32.9 MAJOR DEPRESSIVE DISORDER, SINGLE EPISOD 06/03/2017 STEVE MELÉNDEZ MD Ot I25.10 ATHSCL HEART DISEASE OF [place] CORONARY 06/03/2017 STEVE MELÉNDEZ MD Ot I48.91 UNSPECIFIED ATRIAL FIBRILLATION 06/03/2017 STEVE MELÉNDEZ MD Ot J01.90 ACUTE SINUSITIS, UNSPECIFIED 06/03/2017 STEVE MELÉNDEZ MD Ot J40 BRONCHITIS, NOT SPECIFIED ACUTE OR CH 06/03/2017 STEVE MELÉNDEZ MD Ot J44.9 CHRONIC OBSTRUCTIVE PULMONARY DISEASE, U 06/03/2017 STEVE MELÉNDEZ MD Ot K21.9 GASTRO-ESOPHAGEAL REFLUX DISEASE WITHOUT 06/03/2017 STEVE MELÉNDEZ MD Ot M81.0 AGE-RELATED OSTEOPOROSIS W/O CURRENT PAT 06/03/2017 STEVE MELÉNDEZ MD Ot Z86.73 PRSNL HX OF TIA (TIA), AND CEREB INFRC W 06/03/2017 STEVE MELÉNDEZ MD Ot Z87.01 PERSONAL HISTORY OF PNEUMONIA (RECURRENT 06/03/2017 STEVE MELÉNDEZ MD Ot Z87.2 PERSONAL HISTORY OF DISEASES OF THE SKIN 06/03/2017 STEVE MELÉNDEZ MD, Ot Z87.442 PERSONAL HISTORY OF URINARY CALCULI 06/03/2017 STEVE MELÉNDEZ MD, Ot Z87.891 PERSONAL HISTORY OF NICOTINE DEPENDENCE 06/03/2017 STEVE MELÉNDEZ MD, Ot Z90.710 ACQUIRED ABSENCE OF BOTH CERVIX AND UTER 06/03/2017 STEVE MELÉNDEZ MD, Ot Z95.1 PRESENCE OF AORTOCORONARY BYPASS GRAFT 06/03/2017 STEVE MELÉNDEZ MD Ot Z96.649 PRESENCE OF UNSPECIFIED ARTIFICIAL HIP J 06/03/2017 STEVE MELÉNDEZ MD, Ot Z96.651 PRESENCE OF RIGHT ARTIFICIAL KNEE JOINT 06/05/2017 STEVE MELÉNDEZ MD, Ot E03.9 HYPOTHYROIDISM, UNSPECIFIED 06/05/2017 STEVE MELÉNDEZ MD, Ot F32.9 MAJOR DEPRESSIVE DISORDER, SINGLE EPISOD 06/05/2017 STEVE MELÉNDEZ MD, Ot I25.10 ATHSCL HEART DISEASE OF [place] CORONARY 06/05/2017 STEVE MELÉNDEZ MD Ot I48.91 UNSPECIFIED ATRIAL FIBRILLATION 06/05/2017 STEVE MELÉNDEZ MD, Ot J01.90 ACUTE SINUSITIS, UNSPECIFIED 06/05/2017 STEVE MELÉNDEZ MD, Ot J40 BRONCHITIS, NOT SPECIFIED ACUTE OR CH 06/05/2017 STEVE MELÉNDEZ MD, Ot J44.9 CHRONIC OBSTRUCTIVE PULMONARY DISEASE, U 06/05/2017 STEVE MELÉNDEZ MD, Ot K21.9 GASTRO-ESOPHAGEAL REFLUX DISEASE WITHOUT 06/05/2017 STEVE MELÉNDEZ MD, Ot M81.0 AGE-RELATED OSTEOPOROSIS W/O CURRENT PAT 06/05/2017 STEVE MELÉNDEZ MD Ot Z86.73 PRSNL HX OF TIA (TIA), AND CEREB INFRC W 06/05/2017 STEVE MELÉNDEZ MD, Ot Z87.2 PERSONAL HISTORY OF DISEASES OF THE SKIN 06/05/2017 STEVE MELÉNDEZ MD, Ot Z87.442 PERSONAL HISTORY OF URINARY CALCULI 06/05/2017 STEVE MELÉNDEZ MD, Ot Z87.891 PERSONAL HISTORY OF NICOTINE DEPENDENCE 06/05/2017 STEVE MELÉNDEZ MD, Ot Z90.710 ACQUIRED ABSENCE OF BOTH CERVIX AND UTER 06/05/2017 STEVE MELÉNDEZ MD Ot Z95.1 PRESENCE OF AORTOCORONARY BYPASS GRAFT 06/05/2017 STEVE MELÉNDEZ MD, Ot Z96.649 PRESENCE OF UNSPECIFIED ARTIFICIAL HIP J 06/05/2017 STEVE MELÉNDEZ MD Ot Z96.651 PRESENCE OF RIGHT ARTIFICIAL KNEE JOINT 06/26/2017 STEVE MELÉNDEZ MD Ot E03.9 HYPOTHYROIDISM, UNSPECIFIED 06/26/2017 STEVE MELÉNDEZ MD, Ot F32.9 MAJOR DEPRESSIVE DISORDER, SINGLE EPISOD 06/26/2017 STEVE MELÉNDEZ MD, Ot I25.10 ATHSCL HEART DISEASE OF [place] CORONARY 06/26/2017 STEVE MELÉNDEZ MD, Ot I48.91 UNSPECIFIED ATRIAL FIBRILLATION 06/26/2017 STEVE MELÉNDEZ MD, Ot J01.90 ACUTE SINUSITIS, UNSPECIFIED 06/26/2017 STEVE MELÉNDEZ MD, Ot J40 BRONCHITIS, NOT SPECIFIED ACUTE OR CH 06/26/2017 STEVE MELÉNDEZ MD, Ot J44.9 CHRONIC OBSTRUCTIVE PULMONARY DISEASE, U 06/26/2017 STEVE MELÉNDEZ MD Ot K21.9 GASTRO-ESOPHAGEAL REFLUX DISEASE WITHOUT 06/26/2017 STEVE MELÉNDEZ MD, Ot M81.0 AGE-RELATED OSTEOPOROSIS W/O CURRENT PAT 06/26/2017 STEVE MELÉNDEZ MD Ot Z86.73 PRSNL HX OF TIA (TIA), AND CEREB INFRC W 06/26/2017 STEVE MELÉNDEZ MD, Ot Z87.01 PERSONAL HISTORY OF PNEUMONIA (RECURRENT 06/26/2017 STEVE MELÉNDEZ MD, Ot Z87.2 PERSONAL HISTORY OF DISEASES OF THE SKIN 06/26/2017 STEVE MELÉNDEZ MD, Ot Z87.442 PERSONAL HISTORY OF URINARY CALCULI 06/26/2017 STEVE MELÉNDEZ MD, Ot Z87.891 PERSONAL HISTORY OF NICOTINE DEPENDENCE 06/26/2017 STEVE MELÉNDEZ MD Ot Z90.710 ACQUIRED ABSENCE OF BOTH CERVIX AND UTER 06/26/2017 STEVE MELÉNDEZ MD Ot Z95.1 PRESENCE OF AORTOCORONARY BYPASS GRAFT 06/26/2017 STEVE MELÉNDEZ MD Ot Z96.649 PRESENCE OF UNSPECIFIED ARTIFICIAL HIP J 06/26/2017 RIKA SHRESTHA, STEVE Estefani Ot Z96.651 PRESENCE OF RIGHT ARTIFICIAL KNEE JOINT 07/28/2017 Ot 300.00 07/28/2017 Ot 786.01 07/28/2017 Ot 786.05 07/28/2017 Ot V45.81 07/28/2017 Ot V58.69 09/04/2017 HARSH SKINNER DO Ot E03.9 HYPOTHYROIDISM, UNSPECIFIED 09/04/2017 HARSH SKINNER DO Ot F32.9 MAJOR DEPRESSIVE DISORDER, SINGLE EPISOD 09/04/2017 HARSH SKINNER DO Ot I25.10 ATHSCL HEART DISEASE OF [place] CORONARY 09/04/2017 HARSH SKINNER DO Ot I48.91 UNSPECIFIED ATRIAL FIBRILLATION 09/04/2017 HARSH SKINNER DO Ot J44.9 CHRONIC OBSTRUCTIVE PULMONARY DISEASE, U 09/04/2017 HARSH SKINNER DO Ot K21.9 GASTRO-ESOPHAGEAL REFLUX DISEASE WITHOUT 09/04/2017 HARHS SKINNER DO Ot M54.2 CERVICALGIA 09/04/2017 HARSH SKINNER DO Ot M81.0 AGE-RELATED OSTEOPOROSIS W/O CURRENT PAT 09/04/2017 HARSH SKINNER DO Ot S11.83XA PUNCTURE WOUND W/O FOREIGN BODY OTH PRT 09/04/2017 HARSH SKINNER DO Ot S27.2XXA TRAUMATIC HEMOPNEUMOTHORAX, INITIAL ENCO 09/04/2017 HARSH SKINNER DO Ot W18.09XA STRIKING AGAINST OTH OBJECT W SUBSEQUENT 09/04/2017 HARSH SKINNER DO Ot Z82.49 FAMILY HX OF ISCHEM HEART DIS AND OTH DI 09/04/2017 HARSH SKINNER DO Ot Z86.73 PRSNL HX OF TIA (TIA), AND CEREB INFRC W 09/04/2017 HARSH SKINNER DO, Ot Z87.19 PERSONAL HISTORY OF OTHER DISEASES OF TH 09/04/2017 HARSH SKINNER DO Ot Z87.2 PERSONAL HISTORY OF DISEASES OF THE SKIN 09/04/2017 HARSH SKINNER DO Ot Z87.442 PERSONAL HISTORY OF URINARY CALCULI 09/04/2017 HARSH SKINNER DO, Ot Z87.891 PERSONAL HISTORY OF NICOTINE DEPENDENCE 09/04/2017 HARSH SKINNER DO Ot Z90.710 ACQUIRED ABSENCE OF BOTH CERVIX AND UTER 09/04/2017 HARSH SKINNER DO Ot Z95.1 PRESENCE OF AORTOCORONARY BYPASS GRAFT 09/04/2017 HRASH SKINNER DO Ot Z96.651 PRESENCE OF RIGHT ARTIFICIAL KNEE JOINT 09/04/2017 Ot 785.0 TACHYCARDIA NOS 09/04/2017 Ot 785.1 PALPITATIONS 09/04/2017 Ot 786.09 RESPIRATORY ABNORM NEC 09/04/2017 ERIC MARRERO DO Ot 272.4 HYPERLIPIDEMIA NEC/NOS 09/04/2017 ERIC MARRERO DO Ot 278.00 OBESITY, NOS 09/04/2017 ERIC MARRERO DO Ot 401.9 HYPERTENSION NOS 09/04/2017 ERIC MARRERO DO Ot 414.00 CORON ATHEROSCLER NOS TYPE VESSEL, NATIV 09/04/2017 ERIC MARRERO DO Ot 496 CHR AIRWAY OBSTRUCT NEC 09/04/2017 ERIC MARRERO DO Ot 780.09 OTHER ALTERATION OF CONSCIOUSNESS 09/04/2017 ERIC MARRERO DO Ot 786.09 RESPIRATORY ABNORM NEC Procedures There is no data. Results Test Result Range Complete urinalysis with reflex to culture - 06/27/16 19:48 Urine color determination YELLOW NRG Urine clarity determination CLEAR NRG Urine pH measurement by test strip 5 5-9 Specific gravity of urine by test strip 1.015 1.016- 1.022 Urine protein assay by test strip, semi-quantitative NEGATIVE NEGATIVE Urine glucose detection by automated test strip NEGATIVE NEGATIVE Erythrocytes detection in urine sediment by light microscopy 5+ NEGATIVE Urine ketones detection by automated test strip NEGATIVE NEGATIVE Urine nitrite detection by test strip NEGATIVE NEGATIVE Urine total bilirubin detection by test strip NEGATIVE NEGATIVE Urine urobilinogen measurement by automated test strip (mass/volume) NORMAL NORMAL Urine leukocyte esterase detection by dipstick 1+ NEGATIVE Automated urine sediment erythrocyte count by microscopy (number/high power field) [HPF] NRG Automated urine sediment leukocyte count by microscopy (number/high power field ) [HPF] NRG Bacteria detection in urine sediment by light microscopy FEW NRG Squamous epithelial cells detection in urine sediment by light microscopy 0-2 NRG Crystals detection in urine sediment by light microscopy NONE NRG Casts detection in urine sediment by light microscopy PRESENT NRG Mucus detection in urine sediment by light microscopy NEGATIVE NRG Complete urinalysis with reflex to culture YES NRG Granular casts detection in urine sediment by light microscopy 10- 25 NRG Bacterial urine culture - 06/27/16 19:48 Bacterial urine culture [id number] NRG COLONY COUNT <10,000 NRG FTX;REPORTABLE SEE COMMENTS NRG URINE CULTURE RESULTS <10,000/ML NRG Complete blood count (CBC) with automated white blood cell (WBC) differential - 06/28/16 05:18 Blood leukocytes automated count (number/volume) 5.4 10*3/uL 4.3-11.0 Blood erythrocytes automated count (number/volume) 3.38 10*6/uL 4.35-5.85 Venous blood hemoglobin measurement (mass/volume) 8.9 g/dL 11.5-16.0 Blood hematocrit (volume fraction) 28 % 35-52 Automated erythrocyte mean corpuscular volume 83 [foz_us] 80-99 Automated erythrocyte mean corpuscular hemoglobin (mass per erythrocyte) 26 pg 25-34 Automated erythrocyte mean corpuscular hemoglobin concentration measurement ( mass/volume) 32 g/dL 32-36 Automated erythrocyte distribution width ratio 17.0 % 10.0-14.5 Automated blood platelet count (count/volume) 174 10*3/uL 130-400 Automated blood platelet mean volume measurement 10.0 [foz_us] 7.4-10.4 Automated blood neutrophils/100 leukocytes 52 % 42-75 Automated blood lymphocytes/100 leukocytes 29 % 12-44 Blood monocytes/100 leukocytes 14 % 0-12 Automated blood eosinophils/100 leukocytes 4 % 0-10 Automated blood basophils/100 leukocytes 0 % 0-10 Blood neutrophils automated count (number/volume) 2.8 10*3 1.8-7.8 Blood lymphocytes automated count (number/volume) 1.6 10*3 1.0-4.0 Blood monocytes automated count (number/volume) 0.8 10*3 0.0-1.0 Automated eosinophil count 0.2 10*3/uL 0.0-0.3 Automated blood basophil count (count/volume) 0.0 10*3/uL 0.0-0.1 Comprehensive metabolic panel - 06/28/16 05:18 Serum or plasma sodium measurement (moles/volume) 133 mmol/L 135-145 Serum or plasma potassium measurement (moles/volume) 5.7 mmol/L 3.6-5.0 Serum or plasma chloride measurement (moles/volume) 104 mmol/L 98-107 Carbon dioxide 19 mmol/L 21-32 Serum or plasma anion gap determination (moles/volume) 10 mmol/L 5-14 Serum or plasma urea nitrogen measurement (mass/volume) 49 mg/dL 7-18 Serum or plasma creatinine measurement (mass/volume) 3.09 mg/dL 0.60-1.30 Serum or plasma urea nitrogen/creatinine mass ratio 16 NRG Serum or plasma creatinine measurement with calculation of estimated glomerular filtration rate 15 NRG Serum or plasma glucose measurement (mass/volume) 83 mg/dL 70-105 Serum or plasma calcium measurement (mass/volume) 8.6 mg/dL 8.5-10.1 Serum or plasma total bilirubin measurement (mass/volume) 0.4 mg/dL 0.1-1.0 Serum or plasma alkaline phosphatase measurement (enzymatic activity/volume) 107 U/L 40-136 Serum or plasma aspartate aminotransferase measurement (enzymatic activity/ volume) 35 U/L 5-34 Serum or plasma alanine aminotransferase measurement (enzymatic activity/volume ) 18 U/L 0-55 Serum or plasma protein measurement (mass/volume) 6.2 g/dL 6.4-8.2 Serum or plasma albumin measurement (mass/volume) 3.7 g/dL 3.2-4.5 Whole blood basic metabolic panel - 06/28/16 12:56 Serum or plasma sodium measurement (moles/volume) 136 mmol/L 135-145 Serum or plasma potassium measurement (moles/volume) 5.1 mmol/L 3.6-5.0 Serum or plasma chloride measurement (moles/volume) 105 mmol/L 98-107 Carbon dioxide 22 mmol/L -32 Serum or plasma anion gap determination (moles/volume) 9 mmol/L 5-14 Serum or plasma urea nitrogen measurement (mass/volume) 42 mg/dL 7-18 Serum or plasma creatinine measurement (mass/volume) 2.47 mg/dL 0.60-1.30 Serum or plasma urea nitrogen/creatinine mass ratio 17 NRG Serum or plasma creatinine measurement with calculation of estimated glomerular filtration rate 19 NRG Serum or plasma glucose measurement (mass/volume) 97 mg/dL 70-105 Serum or plasma calcium measurement (mass/volume) 8.7 mg/dL 8.5-10.1 Serum or plasma phosphate measurement (mass/volume) - 06/28/16 12:56 Serum or plasma phosphate measurement (mass/volume) 3.6 mg/dL 2.3-4.7 Magnesium - 06/28/16 12:56 Magnesium 2.5 mg/dL 1.8-2.4 Automated blood complete blood count (hemogram) panel - 06/29/16 05:24 Blood leukocytes automated count (number/volume) 4.5 10*3/uL 4.3-11.0 Blood erythrocytes automated count (number/volume) 3.37 10*6/uL 4.35-5.85 Venous blood hemoglobin measurement (mass/volume) 8.9 g/dL 11.5-16.0 Blood hematocrit (volume fraction) 28 % 35-52 Automated erythrocyte mean corpuscular volume 84 [foz_us] 80-99 Automated erythrocyte mean corpuscular hemoglobin (mass per erythrocyte) 26 pg 25-34 Automated erythrocyte mean corpuscular hemoglobin concentration measurement ( mass/volume) 32 g/dL 32-36 Automated erythrocyte distribution width ratio 17.2 % 10.0-14.5 Automated blood platelet count (count/volume) 167 10*3/uL 130-400 Automated blood platelet mean volume measurement 9.8 [foz_us] 7.4-10.4 Comprehensive metabolic panel - 06/29/16 05:24 Serum or plasma sodium measurement (moles/volume) 136 mmol/L 135-145 Serum or plasma potassium measurement (moles/volume) 4.7 mmol/L 3.6-5.0 Serum or plasma chloride measurement (moles/volume) 107 mmol/L 98-107 Carbon dioxide 20 mmol/L 21-32 Serum or plasma anion gap determination (moles/volume) 9 mmol/L 5-14 Serum or plasma urea nitrogen measurement (mass/volume) 32 mg/dL 7-18 Serum or plasma creatinine measurement (mass/volume) 1.98 mg/dL 0.60-1.30 Serum or plasma urea nitrogen/creatinine mass ratio 16 NRG Serum or plasma creatinine measurement with calculation of estimated glomerular filtration rate 25 NRG Serum or plasma glucose measurement (mass/volume) 99 mg/dL 70-105 Serum or plasma calcium measurement (mass/volume) 8.9 mg/dL 8.5-10.1 Serum or plasma total bilirubin measurement (mass/volume) 0.5 mg/dL 0.1-1.0 Serum or plasma alkaline phosphatase measurement (enzymatic activity/volume) 117 U/L 40-136 Serum or plasma aspartate aminotransferase measurement (enzymatic activity/ volume) 36 U/L 5-34 Serum or plasma alanine aminotransferase measurement (enzymatic activity/volume ) 19 U/L 0-55 Serum or plasma protein measurement (mass/volume) 6.3 g/dL 6.4-8.2 Serum or plasma albumin measurement (mass/volume) 3.8 g/dL 3.2-4.5 Magnesium - 06/29/16 05:24 Magnesium 2.3 mg/dL 1.8-2.4 Lipid 1996 panel - 06/29/16 05:24 Serum or plasma triglyceride measurement (mass/volume) 85 mg/dL <150 Serum or plasma cholesterol measurement (mass/volume) 133 mg/dL < 200 Serum or plasma cholesterol in HDL measurement (mass/volume) 55 mg/ dL 40-60 Cholesterol in LDL [mass/volume] in serum or plasma by direct assay 57 mg/dL 1-129 Serum or plasma cholesterol in VLDL measurement (mass/volume) 17 mg/ dL 5-40 Serum or plasma lithium measurement (moles/volume) - 06/29/16 05:24 BNP level 437.4 pg/mL <100.0 RED CELLS LEUKO REDUCED AS1 - 06/29/16 07:51 RED CELLS LEUKO REDUCED AS1 TRANSFUSED 06/29/16 1031 [facility] Blood type T Indirect antibody screen panel - 06/29/16 07:51 ABO+Rh group OP NRG Transfusion band number [id number] [facility] Blood group antibody screen NEGATIVE [facility] Complete blood count (CBC) with automated white blood cell (WBC) differential - 06/30/16 04:44 Blood leukocytes automated count (number/volume) 5.7 10*3/uL 4.3-11.0 Blood erythrocytes automated count (number/volume) 3.80 10*6/uL 4.35-5.85 Venous blood hemoglobin measurement (mass/volume) 10.1 g/dL 11.5-16.0 Blood hematocrit (volume fraction) 32 % 35-52 Automated erythrocyte mean corpuscular volume 84 [foz_us] 80-99 Automated erythrocyte mean corpuscular hemoglobin (mass per erythrocyte) 27 pg 25-34 Automated erythrocyte mean corpuscular hemoglobin concentration measurement ( mass/volume) 32 g/dL 32-36 Automated erythrocyte distribution width ratio 17.4 % 10.0-14.5 Automated blood platelet count (count/volume) 189 10*3/uL 130-400 Automated blood platelet mean volume measurement 9.6 [foz_us] 7.4-10.4 Automated blood neutrophils/100 leukocytes 47 % 42-75 Automated blood lymphocytes/100 leukocytes 31 % 12-44 Blood monocytes/100 leukocytes 15 % 0-12 Automated blood eosinophils/100 leukocytes 6 % 0-10 Automated blood basophils/100 leukocytes 0 % 0-10 Blood neutrophils automated count (number/volume) 2.7 10*3 1.8-7.8 Blood lymphocytes automated count (number/volume) 1.8 10*3 1.0-4.0 Blood monocytes automated count (number/volume) 0.9 10*3 0.0-1.0 Automated eosinophil count 0.4 10*3/uL 0.0-0.3 Automated blood basophil count (count/volume) 0.0 10*3/uL 0.0-0.1 Comprehensive metabolic panel - 06/30/16 04:44 Serum or plasma sodium measurement (moles/volume) 136 mmol/L 135-145 Serum or plasma potassium measurement (moles/volume) 5.0 mmol/L 3.6-5.0 Serum or plasma chloride measurement (moles/volume) 107 mmol/L 98-107 Carbon dioxide 18 mmol/L 21-32 Serum or plasma anion gap determination (moles/volume) 11 mmol/L 5-14 Serum or plasma urea nitrogen measurement (mass/volume) 25 mg/dL 7-18 Serum or plasma creatinine measurement (mass/volume) 1.81 mg/dL 0.60-1.30 Serum or plasma urea nitrogen/creatinine mass ratio 14 NRG Serum or plasma creatinine measurement with calculation of estimated glomerular filtration rate 28 NRG Serum or plasma glucose measurement (mass/volume) 80 mg/dL 70-105 Serum or plasma calcium measurement (mass/volume) 9.3 mg/dL 8.5-10.1 Serum or plasma total bilirubin measurement (mass/volume) 0.9 mg/dL 0.1-1.0 Serum or plasma alkaline phosphatase measurement (enzymatic activity/volume) 119 U/L 40-136 Serum or plasma aspartate aminotransferase measurement (enzymatic activity/ volume) 39 U/L 5-34 Serum or plasma alanine aminotransferase measurement (enzymatic activity/volume ) 22 U/L 0-55 Serum or plasma protein measurement (mass/volume) 6.7 g/dL 6.4-8.2 Serum or plasma albumin measurement (mass/volume) 4.0 g/dL 3.2-4.5 Comprehensive metabolic panel - 07/01/16 05:24 Serum or plasma sodium measurement (moles/volume) 136 mmol/L 135-145 Serum or plasma potassium measurement (moles/volume) 4.6 mmol/L 3.6-5.0 Serum or plasma chloride measurement (moles/volume) 106 mmol/L 98-107 Carbon dioxide 18 mmol/L 21-32 Serum or plasma anion gap determination (moles/volume) 12 mmol/L 5-14 Serum or plasma urea nitrogen measurement (mass/volume) 36 mg/dL 7-18 Serum or plasma creatinine measurement (mass/volume) 1.94 mg/dL 0.60-1.30 Serum or plasma urea nitrogen/creatinine mass ratio 19 NRG Serum or plasma creatinine measurement with calculation of estimated glomerular filtration rate 26 NRG Serum or plasma glucose measurement (mass/volume) 142 mg/dL 70-105 Serum or plasma calcium measurement (mass/volume) 9.0 mg/dL 8.5-10.1 Serum or plasma total bilirubin measurement (mass/volume) 0.4 mg/dL 0.1-1.0 Serum or plasma alkaline phosphatase measurement (enzymatic activity/volume) 103 U/L 40-136 Serum or plasma aspartate aminotransferase measurement (enzymatic activity/ volume) 34 U/L 5-34 Serum or plasma alanine aminotransferase measurement (enzymatic activity/volume ) 21 U/L 0-55 Serum or plasma protein measurement (mass/volume) 6.1 g/dL 6.4-8.2 Serum or plasma albumin measurement (mass/volume) 3.6 g/dL 3.2-4.5 Automated blood complete blood count (hemogram) panel - 07/01/16 05:34 Blood leukocytes automated count (number/volume) 3.2 10*3/uL 4.3-11.0 Blood erythrocytes automated count (number/volume) 3.32 10*6/uL 4.35-5.85 Venous blood hemoglobin measurement (mass/volume) 8.9 g/dL 11.5-16.0 Blood hematocrit (volume fraction) 28 % 35-52 Automated erythrocyte mean corpuscular volume 85 [foz_us] 80-99 Automated erythrocyte mean corpuscular hemoglobin (mass per erythrocyte) 27 pg 25-34 Automated erythrocyte mean corpuscular hemoglobin concentration measurement ( mass/volume) 32 g/dL 32-36 Automated erythrocyte distribution width ratio 17.0 % 10.0-14.5 Automated blood platelet count (count/volume) 153 10*3/uL 130-400 Automated blood platelet mean volume measurement 9.7 [foz_us] 7.4-10.4 Automated blood complete blood count (hemogram) panel - 07/02/16 05:25 Blood leukocytes automated count (number/volume) 9.4 10*3/uL 4.3-11.0 Blood erythrocytes automated count (number/volume) 3.69 10*6/uL 4.35-5.85 Venous blood hemoglobin measurement (mass/volume) 9.8 g/dL 11.5-16.0 Blood hematocrit (volume fraction) 32 % 35-52 Automated erythrocyte mean corpuscular volume 86 [foz_us] 80-99 Automated erythrocyte mean corpuscular hemoglobin (mass per erythrocyte) 27 pg 25-34 Automated erythrocyte mean corpuscular hemoglobin concentration measurement ( mass/volume) 31 g/dL 32-36 Automated erythrocyte distribution width ratio 17.7 % 10.0-14.5 Automated blood platelet count (count/volume) 191 10*3/uL 130-400 Automated blood platelet mean volume measurement 9.8 [foz_us] 7.4-10.4 Whole blood basic metabolic panel - 07/02/16 05:25 Serum or plasma sodium measurement (moles/volume) 140 mmol/L 135-145 Serum or plasma potassium measurement (moles/volume) 4.4 mmol/L 3.6-5.0 Serum or plasma chloride measurement (moles/volume) 108 mmol/L 98-107 Carbon dioxide 19 mmol/L 21-32 Serum or plasma anion gap determination (moles/volume) 13 mmol/L 5-14 Serum or plasma urea nitrogen measurement (mass/volume) 35 mg/dL 7-18 Serum or plasma creatinine measurement (mass/volume) 1.64 mg/dL 0.60-1.30 Serum or plasma urea nitrogen/creatinine mass ratio 21 NRG Serum or plasma creatinine measurement with calculation of estimated glomerular filtration rate 31 NRG Serum or plasma glucose measurement (mass/volume) 120 mg/dL 70-105 Serum or plasma calcium measurement (mass/volume) 9.2 mg/dL 8.5-10.1 Complete blood count (CBC) with automated white blood cell (WBC) differential - 09/27/16 11:36 Blood leukocytes automated count (number/volume) 17.5 10*3/uL 4.3-11.0 Blood erythrocytes automated count (number/volume) 4.41 10*6/uL 4.35-5.85 Venous blood hemoglobin measurement (mass/volume) 12.7 g/dL 11.5-16.0 Blood hematocrit (volume fraction) 39 % 35-52 Automated erythrocyte mean corpuscular volume 87 [foz_us] 80-99 Automated erythrocyte mean corpuscular hemoglobin (mass per erythrocyte) 29 pg 25-34 Automated erythrocyte mean corpuscular hemoglobin concentration measurement ( mass/volume) 33 g/dL 32-36 Automated erythrocyte distribution width ratio 14.9 % 10.0-14.5 Automated blood platelet count (count/volume) 178 10*3/uL 130-400 Automated blood platelet mean volume measurement 9.8 [foz_us] 7.4-10.4 Automated blood neutrophils/100 leukocytes 84 % 42-75 Automated blood lymphocytes/100 leukocytes 7 % 12-44 Blood monocytes/100 leukocytes 8 % 0-12 Automated blood eosinophils/100 leukocytes 1 % 0-10 Automated blood basophils/100 leukocytes 0 % 0-10 Blood neutrophils automated count (number/volume) 14.8 10*3 1.8-7.8 Blood lymphocytes automated count (number/volume) 1.2 10*3 1.0-4.0 Blood monocytes automated count (number/volume) 1.5 10*3 0.0-1.0 Automated eosinophil count 0.1 10*3/uL 0.0-0.3 Automated blood basophil count (count/volume) 0.0 10*3/uL 0.0-0.1 Blood lactic acid measurement (moles/volume) - 09/27/16 11:36 Blood lactic acid measurement (moles/volume) 0.9 mmol/L 0.5-2.0 Comprehensive metabolic panel - 09/27/16 11:36 Serum or plasma sodium measurement (moles/volume) 131 mmol/L 135-145 Serum or plasma potassium measurement (moles/volume) 4.1 mmol/L 3.6-5.0 Serum or plasma chloride measurement (moles/volume) 101 mmol/L 98-107 Carbon dioxide 21 mmol/L 21-32 Serum or plasma anion gap determination (moles/volume) 9 mmol/L 5-14 Serum or plasma urea nitrogen measurement (mass/volume) 17 mg/dL 7-18 Serum or plasma creatinine measurement (mass/volume) 1.25 mg/dL 0.60-1.30 Serum or plasma urea nitrogen/creatinine mass ratio 14 NR Serum or plasma creatinine measurement with calculation of estimated glomerular filtration rate 42 NRG Serum or plasma glucose measurement (mass/volume) 94 mg/dL 70-105 Serum or plasma calcium measurement (mass/volume) 9.1 mg/dL 8.5-10.1 Serum or plasma total bilirubin measurement (mass/volume) 0.9 mg/dL 0.1-1.0 Serum or plasma alkaline phosphatase measurement (enzymatic activity/volume) 121 U/L 40-136 Serum or plasma aspartate aminotransferase measurement (enzymatic activity/ volume) 18 U/L 5-34 Serum or plasma alanine aminotransferase measurement (enzymatic activity/volume ) 9 U/L 0-55 Serum or plasma protein measurement (mass/volume) 7.1 g/dL 6.4-8.2 Serum or plasma albumin measurement (mass/volume) 3.8 g/dL 3.2-4.5 Blood manual differential performed detection - 09/27/16 11:36 Blood monocytes/100 leukocytes 9 % NR Manual blood segmented neutrophils/100 leukocytes 85 % NRG Blood band neutrophils/100 leukocytes 0 % NRG Manual blood lymphocytes/100 leukocytes 4 % NRG Manual eosinophils/100 leukocytes in nose 1 % NR Manual blood basophils/100 leukocytes 1 % NR Blood erythrocyte morphology finding identification NORMAL [facility] Bacterial blood culture - 09/27/16 11:36 Bacterial blood culture NG [facility] Bacterial blood culture - 09/27/16 11:46 Bacterial blood culture NG [facility] Influenza virus A and B antigen detection - 09/27/16 13:50 FLU RESULT NEGATIVE FOR INFLUENZA A AND B ANTIGENS BY IA [facility] Complete blood count (CBC) with automated white blood cell (WBC) differential - 09/28/16 05:35 Blood leukocytes automated count (number/volume) 14.3 10*3/uL 4.3-11.0 Blood erythrocytes automated count (number/volume) 3.64 10*6/uL 4.35-5.85 Venous blood hemoglobin measurement (mass/volume) 10.5 g/dL 11.5-16.0 Blood hematocrit (volume fraction) 32 % 35-52 Automated erythrocyte mean corpuscular volume 88 [foz_us] 80-99 Automated erythrocyte mean corpuscular hemoglobin (mass per erythrocyte) 29 pg 25-34 Automated erythrocyte mean corpuscular hemoglobin concentration measurement ( mass/volume) 33 g/dL 32-36 Automated erythrocyte distribution width ratio 14.9 % 10.0-14.5 Automated blood platelet count (count/volume) 161 10*3/uL 130-400 Automated blood platelet mean volume measurement 9.8 [foz_us] 7.4-10.4 Automated blood neutrophils/100 leukocytes 80 % 42-75 Automated blood lymphocytes/100 leukocytes 10 % 12-44 Blood monocytes/100 leukocytes 9 % 0-12 Automated blood eosinophils/100 leukocytes 1 % 0-10 Automated blood basophils/100 leukocytes 0 % 0-10 Blood neutrophils automated count (number/volume) 11.5 10*3 1.8-7.8 Blood lymphocytes automated count (number/volume) 1.4 10*3 1.0-4.0 Blood monocytes automated count (number/volume) 1.3 10*3 0.0-1.0 Automated eosinophil count 0.1 10*3/uL 0.0-0.3 Automated blood basophil count (count/volume) 0.0 10*3/uL 0.0-0.1 Comprehensive metabolic panel - 09/28/16 05:35 Serum or plasma sodium measurement (moles/volume) 135 mmol/L 135-145 Serum or plasma potassium measurement (moles/volume) 4.1 mmol/L 3.6-5.0 Serum or plasma chloride measurement (moles/volume) 107 mmol/L 98-107 Carbon dioxide 22 mmol/L 21-32 Serum or plasma anion gap determination (moles/volume) 6 mmol/L 5-14 Serum or plasma urea nitrogen measurement (mass/volume) 19 mg/dL 7-18 Serum or plasma creatinine measurement (mass/volume) 1.17 mg/dL 0.60-1.30 Serum or plasma urea nitrogen/creatinine mass ratio 16 NRG Serum or plasma creatinine measurement with calculation of estimated glomerular filtration rate 46 NRG Serum or plasma glucose measurement (mass/volume) 105 mg/dL 70-105 Serum or plasma calcium measurement (mass/volume) 8.7 mg/dL 8.5-10.1 Serum or plasma total bilirubin measurement (mass/volume) 0.4 mg/dL 0.1-1.0 Serum or plasma alkaline phosphatase measurement (enzymatic activity/volume) 122 U/L 40-136 Serum or plasma aspartate aminotransferase measurement (enzymatic activity/ volume) 14 U/L 5-34 Serum or plasma alanine aminotransferase measurement (enzymatic activity/volume ) 10 U/L 0-55 Serum or plasma protein measurement (mass/volume) 5.9 g/dL 6.4-8.2 Serum or plasma albumin measurement (mass/volume) 3.2 g/dL 3.2-4.5 THYROID STIMULATING HORMONE - 09/28/16 05:35 THYROID STIMULATING HORMONE 1.94 u[iU]/mL 0.35-4.94 Sputum Gram stain - 09/28/16 09:25 Bacterial sputum culture - 09/28/16 09:25 Bacterial sputum culture NORMAL NRG Complete blood count (CBC) with automated white blood cell (WBC) differential - 09/29/16 06:31 Blood leukocytes automated count (number/volume) 6.6 10*3/uL 4.3-11.0 Blood erythrocytes automated count (number/volume) 3.34 10*6/uL 4.35-5.85 Venous blood hemoglobin measurement (mass/volume) 9.5 g/dL 11.5-16.0 Blood hematocrit (volume fraction) 30 % 35-52 Automated erythrocyte mean corpuscular volume 89 [foz_us] 80-99 Automated erythrocyte mean corpuscular hemoglobin (mass per erythrocyte) 28 pg 25-34 Automated erythrocyte mean corpuscular hemoglobin concentration measurement ( mass/volume) 32 g/dL 32-36 Automated erythrocyte distribution width ratio 15.1 % 10.0-14.5 Automated blood platelet count (count/volume) 153 10*3/uL 130-400 Automated blood platelet mean volume measurement 10.3 [foz_us] 7.4-10.4 Automated blood neutrophils/100 leukocytes 71 % 42-75 Automated blood lymphocytes/100 leukocytes 16 % 12-44 Blood monocytes/100 leukocytes 9 % 0-12 Automated blood eosinophils/100 leukocytes 4 % 0-10 Automated blood basophils/100 leukocytes 0 % 0-10 Blood neutrophils automated count (number/volume) 4.7 10*3 1.8-7.8 Blood lymphocytes automated count (number/volume) 1.1 10*3 1.0-4.0 Blood monocytes automated count (number/volume) 0.6 10*3 0.0-1.0 Automated eosinophil count 0.3 10*3/uL 0.0-0.3 Automated blood basophil count (count/volume) 0.0 10*3/uL 0.0-0.1 Comprehensive metabolic panel - 09/29/16 06:31 Serum or plasma sodium measurement (moles/volume) 137 mmol/L 135-145 Serum or plasma potassium measurement (moles/volume) 4.0 mmol/L 3.6-5.0 Serum or plasma chloride measurement (moles/volume) 111 mmol/L 98-107 Carbon dioxide 19 mmol/L 21-32 Serum or plasma anion gap determination (moles/volume) 7 mmol/L 5-14 Serum or plasma urea nitrogen measurement (mass/volume) 13 mg/dL 7-18 Serum or plasma creatinine measurement (mass/volume) 1.02 mg/dL 0.60-1.30 Serum or plasma urea nitrogen/creatinine mass ratio 13 NRG Serum or plasma creatinine measurement with calculation of estimated glomerular filtration rate 54 NRG Serum or plasma glucose measurement (mass/volume) 109 mg/dL 70-105 Serum or plasma calcium measurement (mass/volume) 8.6 mg/dL 8.5-10.1 Serum or plasma total bilirubin measurement (mass/volume) 0.3 mg/dL 0.1-1.0 Serum or plasma alkaline phosphatase measurement (enzymatic activity/volume) 133 U/L 40-136 Serum or plasma aspartate aminotransferase measurement (enzymatic activity/ volume) 32 U/L 5-34 Serum or plasma alanine aminotransferase measurement (enzymatic activity/volume ) 13 U/L 0-55 Serum or plasma protein measurement (mass/volume) 6.1 g/dL 6.4-8.2 Serum or plasma albumin measurement (mass/volume) 3.3 g/dL 3.2-4.5 Complete blood count (CBC) with automated white blood cell (WBC) differential - 06/03/17 08:50 Blood leukocytes automated count (number/volume) 7.4 10*3/uL 4.3-11.0 Blood erythrocytes automated count (number/volume) 3.95 10*6/uL 4.35-5.85 Venous blood hemoglobin measurement (mass/volume) 12.1 g/dL 11.5-16.0 Blood hematocrit (volume fraction) 37 % 35-52 Automated erythrocyte mean corpuscular volume 93 [foz_us] 80-99 Automated erythrocyte mean corpuscular hemoglobin (mass per erythrocyte) 31 pg 25-34 Automated erythrocyte mean corpuscular hemoglobin concentration measurement ( mass/volume) 33 g/dL 32-36 Automated erythrocyte distribution width ratio 14.0 % 10.0-14.5 Automated blood platelet count (count/volume) 178 10*3/uL 130-400 Automated blood platelet mean volume measurement 9.7 [foz_us] 7.4-10.4 Automated blood neutrophils/100 leukocytes 62 % 42-75 Automated blood lymphocytes/100 leukocytes 23 % 12-44 Blood monocytes/100 leukocytes 10 % 0-12 Automated blood eosinophils/100 leukocytes 4 % 0-10 Automated blood basophils/100 leukocytes 0 % 0-10 Blood neutrophils automated count (number/volume) 4.6 10*3 1.8-7.8 Blood lymphocytes automated count (number/volume) 1.7 10*3 1.0-4.0 Blood monocytes automated count (number/volume) 0.7 10*3 0.0-1.0 Automated eosinophil count 0.3 10*3/uL 0.0-0.3 Automated blood basophil count (count/volume) 0.0 10*3/uL 0.0-0.1 PT panel in platelet poor plasma by coagulation assay - 06/03/17 08:50 Prothrombin time (PT) in platelet poor plasma by coagulation assay 18.3 s 12.2-14.7 INR in platelet poor plasma or blood by coagulation assay 1.6 0.8-1.4 Activated partial thromboplastin time (aPTT) in platelet poor plasma bycoagulation assay - 06/03/17 08:50 Activated partial thromboplastin time (aPTT) in platelet poor plasma bycoagulation assay 36 s 24-35 Blood lactic acid measurement (moles/volume) - 06/03/17 08:50 Blood lactic acid measurement (moles/volume) 1.18 mmol/L 0.50-2.00 Comprehensive metabolic panel - 06/03/17 08:50 Serum or plasma sodium measurement (moles/volume) 138 mmol/L 135-145 Serum or plasma potassium measurement (moles/volume) 3.7 mmol/L 3.6-5.0 Serum or plasma chloride measurement (moles/volume) 101 mmol/L 98-107 Carbon dioxide 25 mmol/L 21-32 Serum or plasma anion gap determination (moles/volume) 12 mmol/L 5-14 Serum or plasma urea nitrogen measurement (mass/volume) 29 mg/dL 7-18 Serum or plasma creatinine measurement (mass/volume) 1.46 mg/dL 0.60-1.30 Serum or plasma urea nitrogen/creatinine mass ratio 20 NRG Serum or plasma creatinine measurement with calculation of estimated glomerular filtration rate 35 NRG Serum or plasma glucose measurement (mass/volume) 111 mg/dL 70-105 Serum or plasma calcium measurement (mass/volume) 9.7 mg/dL 8.5-10.1 Serum or plasma total bilirubin measurement (mass/volume) 0.5 mg/dL 0.1-1.0 Serum or plasma alkaline phosphatase measurement (enzymatic activity/volume) 108 U/L 40-136 Serum or plasma aspartate aminotransferase measurement (enzymatic activity/ volume) 33 U/L 5-34 Serum or plasma alanine aminotransferase measurement (enzymatic activity/volume ) 22 U/L 0-55 Serum or plasma protein measurement (mass/volume) 6.8 g/dL 6.4-8.2 Serum or plasma albumin measurement (mass/volume) 4.0 g/dL 3.2-4.5 Bacterial blood culture - 06/03/17 08:50 Bacterial blood culture NG NRG Bacterial blood culture - 06/03/17 09:11 Bacterial blood culture NG NRG Complete urinalysis with reflex to culture - 06/03/17 10:49 Urine color determination YELLOW NRG Urine clarity determination SLIGHTLY CLOUDY NRG Urine pH measurement by test strip 7 5-9 Specific gravity of urine by test strip 1.010 1.016- 1.022 Urine protein assay by test strip, semi-quantitative NEGATIVE NEGATIVE Urine glucose detection by automated test strip NEGATIVE NEGATIVE Erythrocytes detection in urine sediment by light microscopy NEGATIVE NEGATIVE Urine ketones detection by automated test strip NEGATIVE NEGATIVE Urine nitrite detection by test strip NEGATIVE NEGATIVE Urine total bilirubin detection by test strip NEGATIVE NEGATIVE Urine urobilinogen measurement by automated test strip (mass/volume) NORMAL NORMAL Urine leukocyte esterase detection by dipstick 1+ NEGATIVE Automated urine sediment erythrocyte count by microscopy (number/high power field) NONE NRG Automated urine sediment leukocyte count by microscopy (number/high power field ) RARE NRG Bacteria detection in urine sediment by light microscopy NEGATIVE NRG Squamous epithelial cells detection in urine sediment by light microscopy RARE NRG Crystals detection in urine sediment by light microscopy NONE NRG Casts detection in urine sediment by light microscopy NONE NRG Mucus detection in urine sediment by light microscopy SMALL NRG Complete urinalysis with reflex to culture NO NRG Complete blood count (CBC) with automated white blood cell (WBC) differential - 09/04/17 12:42 Blood leukocytes automated count (number/volume) 5.9 10*3/uL 4.3-11.0 Blood erythrocytes automated count (number/volume) 4.00 10*6/uL 4.35-5.85 Venous blood hemoglobin measurement (mass/volume) 12.3 g/dL 11.5-16.0 Blood hematocrit (volume fraction) 38 % 35-52 Automated erythrocyte mean corpuscular volume 96 [foz_us] 80-99 Automated erythrocyte mean corpuscular hemoglobin (mass per erythrocyte) 31 pg 25-34 Automated erythrocyte mean corpuscular hemoglobin concentration measurement ( mass/volume) 32 g/dL 32-36 Automated erythrocyte distribution width ratio 14.1 % 10.0-14.5 Automated blood platelet count (count/volume) 204 10*3/uL 130-400 Automated blood platelet mean volume measurement 9.4 [foz_us] 7.4-10.4 Automated blood neutrophils/100 leukocytes 44 % 42-75 Automated blood lymphocytes/100 leukocytes 41 % 12-44 Blood monocytes/100 leukocytes 11 % 0-12 Automated blood eosinophils/100 leukocytes 5 % 0-10 Automated blood basophils/100 leukocytes 1 % 0-10 Blood neutrophils automated count (number/volume) 2.6 10*3 1.8-7.8 Blood lymphocytes automated count (number/volume) 2.4 10*3 1.0-4.0 Blood monocytes automated count (number/volume) 0.6 10*3 0.0-1.0 Automated eosinophil count 0.3 10*3/uL 0.0-0.3 Automated blood basophil count (count/volume) 0.0 10*3/uL 0.0-0.1 PT panel in platelet poor plasma by coagulation assay - 09/04/17 12:42 Prothrombin time (PT) in platelet poor plasma by coagulation assay 15.2 s 12.2-14.7 INR in platelet poor plasma or blood by coagulation assay 1.2 0.8-1.4 Activated partial thromboplastin time (aPTT) in platelet poor plasma bycoagulation assay - 09/04/17 12:42 Activated partial thromboplastin time (aPTT) in platelet poor plasma bycoagulation assay 33 s 24-35 Comprehensive metabolic panel - 09/04/17 12:42 Serum or plasma sodium measurement (moles/volume) 141 mmol/L 135-145 Serum or plasma potassium measurement (moles/volume) 4.2 mmol/L 3.6-5.0 Serum or plasma chloride measurement (moles/volume) 104 mmol/L 98-107 Carbon dioxide 29 mmol/L 21-32 Serum or plasma anion gap determination (moles/volume) 8 mmol/L 5-14 Serum or plasma urea nitrogen measurement (mass/volume) 21 mg/dL 7-18 Serum or plasma creatinine measurement (mass/volume) 1.02 mg/dL 0.60-1.30 Serum or plasma urea nitrogen/creatinine mass ratio 21 NRG Serum or plasma creatinine measurement with calculation of estimated glomerular filtration rate 54 NRG Serum or plasma glucose measurement (mass/volume) 100 mg/dL 70-105 Serum or plasma calcium measurement (mass/volume) 9.4 mg/dL 8.5-10.1 Serum or plasma total bilirubin measurement (mass/volume) 0.4 mg/dL 0.1-1.0 Serum or plasma alkaline phosphatase measurement (enzymatic activity/volume) 109 U/L 40-136 Serum or plasma aspartate aminotransferase measurement (enzymatic activity/ volume) 26 U/L 5-34 Serum or plasma alanine aminotransferase measurement (enzymatic activity/volume ) 22 U/L 0-55 Serum or plasma protein measurement (mass/volume) 6.9 g/dL 6.4-8.2 Serum or plasma albumin measurement (mass/volume) 4.0 g/dL 3.2-4.5 Magnesium - 09/04/17 12:42 Magnesium 1.7 mg/dL 1.8-2.4 Blood type T Indirect antibody screen panel - 09/04/17 12:42 ABO+Rh group OP NRG Transfusion band number [id number] [facility] Blood group antibody screen NEGATIVE NR Serum or plasma troponin i.cardiac measurement (mass/volume) - 09/04/17 12:42 Serum or plasma troponin i.cardiac measurement (mass/volume) < ng/ mL <0.30 Serum or plasma thyroxine (T4) free measurement (mass/volume) - 09/04/17 12:42 Serum or plasma thyroxine (T4) free measurement (mass/volume) 0.90 ng/dL 0.70-1.48 Serum or plasma thyrotropin measurement by detection limit <=0.05 miu/l (units/ volume) - 09/04/17 12:42 Serum or plasma thyrotropin measurement by detection limit <=0.05 miu/l (units/ volume) 9.27 u[iU]/mL 0.35-4.94 Encounters ACCT No. Visit Date/Time Discharge Status Pt. Type Provider Facility Loc./Unit Complaint [id number] 09/04/2017 12:38:00 09/04/2017 15:20:00 DIS Emergency HARSH SKINNER DO [facility] ER JOVANI THROUGH THROAT [id number] 06/03/2017 08:45:00 06/03/2017 12:03:00 DIS Emergency RIKA SHRESTHA, STEVE Jara [facility] ER SOA [id number] 09/27/2016 10:59:00 09/30/2016 13:35:00 DIS Inpatient AYUSH SEXTON DO [facility] 4TH PNEUMONIA [id number] 06/28/2016 13:15:00 07/03/2016 10:30:00 DIS Inpatient SEGUNDO SHRESTHA, ERIC R [facility] 4TH HYPONATREMIA,FATIGUE, MALAISE [id number] 06/18/2016 08:02:00 06/18/2016 23:59:59 CLS Outpatient SCOUT GRIJALVA [facility] CARD CAD,PASTORA,HTN [id number] 05/08/2016 08:19:00 05/08/2016 23:59:59 CLS Outpatient SCOUT GRIJALVA [facility] CARD CAD,PASTORA,HTN, HLP [id number] 09/12/2015 14:45:00 09/12/2015 15:00:00 DIS Outpatient ERIC MARRERO DO [facility] SLEEP HPN,ISCHEMIC HEART DISEASE,STROKE,INSOMNIA,EDS [id number] 06/23/2015 08:34:00 06/23/2015 23:59:59 CLS Outpatient GENIA CARMONA MD [facility] RAD RADICULOPATHY [id number] 06/22/2015 15:14:00 06/22/2015 23:59:59 CLS Outpatient GENIA CARMONA MD [facility] RAD [id number] 06/17/2015 14:56:00 06/17/2015 23:59:59 CLS Outpatient GENIA CARMNOA MD [facility] RAD [id number] 02/24/2015 14:28:00 03/04/2015 11:45:00 DIS Inpatient ERIC RAYMOND MD [facility] 4TH [id number] 03/01/2015 08:00:00 03/01/2015 23:59:59 CLS Preadmit ERIC MARRERO DO [facility] PULM COPD,CAD,DYSPNEA,HTN, HLP [id number] 02/15/2015 13:00:00 02/28/2015 00:01:00 DIS Outpatient ERIC MARRERO DO [facility] PULM [id number] 02/21/2015 12:23:00 02/21/2015 23:59:59 CLS Outpatient ERIC RAYMOND MD [facility] RAD FELL ON RIGHT KNEE [id number] 01/24/2015 08:31:00 01/24/2015 23:59:59 CLS Outpatient DARSHAN SEGUNDO MD [facility] CARD CAD,HTN,HLP [id number] 11/29/2014 14:01:00 11/29/2014 23:59:59 CLS Outpatient ERIC MARRERO DO [facility] RT [id number] 11/17/2014 12:18:00 11/21/2014 13:00:00 DIS Inpatient ERIC RAYMOND MD [facility] 4TH SOA [id number] 11/15/2014 12:10:00 11/15/2014 23:59:59 CLS Outpatient JUANA FLANNERY MD [facility] RAD [id number] 10/25/2014 13:24:00 10/25/2014 23:59:59 CLS Outpatient ERIC MARRERO DO [facility] RAD [id number] 08/18/2014 10:34:00 08/26/2014 13:30:00 DIS Inpatient SEGUNDO SHRESTHA, ERIC Jackson [facility] [address] [id number] 07/07/2014 08:08:00 07/07/2014 23:59:59 CLS Outpatient DARSHAN SEGUNDO MD [facility] CARD [id number] 03/21/2014 02:12:00 03/22/2014 09:06:00 DIS Outpatient DARSHAN SEGUNDO MD [facility] [id number] 08/29/2016 08:10:00 Document Registration [id number] 01/05/2015 11:07:00 Document Registration [id number] 12/21/2014 15:44:00 Document Registration [id number] 12/17/2014 21:13:00 Document Registration [id number] 05/07/2013 09:30:00 Document Registration [id number] 02/05/2013 10:23:00 Document Registration [id number] 01/28/2013 08:16:00 Document Registration [id number] 03/02/2007 10:12:00 Document Registration
[2017-10-25] MEDS ORDERED: HYDROmorphone (DILAUDID) 2 MG/ML VIAL IM STA (14:33)
--- NOTE | 2017-10-25 15:58 | Diagnostic Imaging Report ---
INDICATION: Fall. Trauma to the head. TECHNIQUE: Routine non contrast-enhanced axial images were obtained from the skull base to the vertex. COMPARISON: 02/24/2015 FINDINGS: The ventricles and cortical sulci are diffusely prominent, compatible with age-related volume loss. There are confluent areas of abnormal, low attenuation in the periventricular white matter. This is consistent with chronic small vessel ischemic changes. Note is also made of moderate-sized area of old infarct involving the left parietal lobe. There is no midline shift or mass-effect. No acute intra-axial hemorrhage is seen. There are no abnormal areas of increased or decreased density to suggest acute hemorrhage or edema. No extra-axial masses or collections are present. The bony calvarium is intact. The visualized paranasal sinuses are unremarkable. The mastoid air cells are clear. IMPRESSION: 1. No acute intracranial abnormality. No CT evidence of mass, acute infarct or intracranial hemorrhage. 2. 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 Dictated by: Dictated on workstation # [id number]
--- NOTE | 2017-10-25 16:34 | Diagnostic Imaging Report ---
INDICATION: Elbow pain after fall. COMPARISON: None available. FINDINGS: There is an acute transverse fracture through the olecranon of the ulna. The olecranon process is pulled proximally by the triceps and the fracture gap has diastases of 11 mm. A moderate amount of soft tissue swelling is present in the posterior elbow. No definitive radial head fracture. Mild degenerative changes within the elbow are noted. IMPRESSION: Acute, distracted transverse fracture of the olecranon. Dictated by: Dictated on workstation # [id number]
[2017-10-25] MEDS ORDERED: oxyCODONE/APAP 5/325MG (PERCOCET 5) TABLET PO STA (16:53)
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
[2017-10-25] MEDS ORDERED: OXYC-202 PO (17:15)
--- NOTE | 2017-10-25 18:08 | Diagnostic Imaging Report ---
PROCEDURE: CT left upper extremity without contrast. TECHNIQUE: Multiple contiguous axial images were obtained through the left upper extremity without the use of intravenous contrast. INDICATION: Fracture at the left elbow. COMPARISON: Radiograph from the same day. FINDINGS: There is a comminuted fracture of the proximal ulna at the trochlear notch with approximately 1.5 cm distraction of the olecranon process. The fracture also extends to the base of the coronoid process. Small chip fractures are seen at the posterior aspect of the capitellum (image 30, series 9). The remainder of the humerus appears intact. The radius appears intact, and in normal alignment with the capitellum. There is a small left elbow joint effusion. There is severe deep and superficial soft tissue edema at the posterior aspect of the left elbow, extending into the forearm. The biceps tendon is intact. The triceps tendon appears to remain attached to the olecranon fracture fragment. No muscular atrophy is seen. No radiopaque foreign bodies are identified. IMPRESSION: 1. Comminuted fracture of the proximal ulna at the trochlear notch with distraction of the olecranon process. 2. Small chip fractures of the posterior aspect of the capitellum. Dictated by: Dictated on workstation # [id number]
[2017-10-25 19:00] VITALS: BP 116/80
== END 2017-10-25 19:00 | disposition home or self-care (01) ==
LOC: EDUNIT# 14:00 → ER 14:02
DX: S52.022A Displaced fracture of olecranon process without intraarticular extension of left ulna, initial encounter for closed fracture (principal); J44.9 Chronic obstructive pulmonary disease, unspecified; I48.91 Unspecified atrial fibrillation; M81.0 Age-related osteoporosis without current pathological fracture; E03.9 Hypothyroidism, unspecified; F32.9 Major depressive disorder, single episode, unspecified; I25.10 Atherosclerotic heart disease of native coronary artery without angina pectoris; K21.9 Gastro-esophageal reflux disease without esophagitis; Z96.651 Presence of right artificial knee joint; Z79.01 Long term (current) use of anticoagulants; Z82.49 Family history of ischemic heart disease and other diseases of the circulatory system; Z87.891 Personal history of nicotine dependence; Z86.73 Personal history of transient ischemic attack (TIA), and cerebral infarction without residual deficits; Z87.440 Personal history of urinary (tract) infections; Z87.19 Personal history of other diseases of the digestive system; Z98.1 Arthrodesis status; Z90.710 Acquired absence of both cervix and uterus; Z87.01 Personal history of pneumonia (recurrent); W01.0XXA Fall on same level from slipping, tripping and stumbling without subsequent striking against object, initial encounter
CPT/HCPCS: 29105; 70450; 73080; 73200

== ENCOUNTER → 2017-11-15 | Outpatient (CLI) | payer MEDICARE, OTHER ==
[~2017-11-15] VITALS: Ht 162.6 cm; Wt 72.7 kg
[~2017-11-15] MED LIST changes: +OXYC-202 PO
[2017-11-15 15:10] VITALS: BP 129/71
--- NOTE | 2017-11-15 16:42 | Diagnostic Imaging Report ---
INDICATION: PICC line placement. EXAMINATION: Portable chest at 4:15 p.m. FINDINGS: Right upper extremity PICC line tip projects over the SVC. There are postop changes from CABG surgery. Heart size and pulmonary vascularity are normal. Lungs are clear. IMPRESSION: Postsurgical changes in the chest. No acute abnormality is seen. Dictated by: Dictated on workstation # [id number]
[2017-11-15 17:00] VITALS: BP 129/71
== END ==
LOC: SDC 13:51
PROVIDERS: ATTEND Orthopaedic Surgery Orthopaedic Trauma
DX: Z45.2 Encounter for adjustment and management of vascular access device (principal)
CPT/HCPCS: 36569; 71045; 76937

== ENCOUNTER → 2018-01-03 | Outpatient (CLI) | payer MEDICARE, OTHER ==
--- NOTE | 2018-01-03 09:34 | Diagnostic Imaging Report ---
INDICATION: Hematuria. FINDINGS: Abdominal sonography performed in routine fashion. The liver shows normal echogenicity with no focal lesions. Gallbladder is unremarkable with no gallstones or wall thickening. Common duct measured 4 mm. The pancreas is not well-seen due to overlying gas. The spleen was not enlarged and shows no focal lesions. Visualized portions of the IVC was normal. The aorta was not well-seen due to overlying gas. Right kidney measured 10.5 x 5.4 x 5.4 cm and appeared normal. The left kidney measured 10.7 x 6.4 x 6.0 cm and appeared normal. There was no hydronephrosis or sonographically evident calculus. Urinary bladder appears unremarkable. IMPRESSION: Unremarkable abdominal sonography. Consider CT as clinically warranted if hematuria persists. Dictated by: Dictated on workstation # [id number]
== END ==
LOC: RAD 08:33
PROVIDERS: ATTEND Family Medicine
DX: R31.29 Other microscopic hematuria (principal)
CPT/HCPCS: 76700

== ENCOUNTER → 2018-01-16 | Outpatient (CLI) | payer MEDICARE, OTHER ==
[~2018-01-16] MED LIST changes: +IOHEXOL 350 MG/ML 100 ML (OMNIPAQUE 350) VIAL IV ONE; +NS 250 ML (IVPB) BAG IV ONE
--- NOTE | 2018-01-16 14:55 | Diagnostic Imaging Report ---
CLINICAL INDICATION: Patient with stroke, confusion. EXAM: CT scan of the head performed without and with 80 cc of Omnipaque 350 IV contrast. COMPARISON: Head CT without contrast dated 10/25/2017. FINDINGS: There is multiple focal and patchy areas of low-attenuation white matter changes throughout both cerebral hemispheres which is not significantly changed in the interim. There is a stable moderate-sized chronic cerebral infarct involving the left parietal lobe. There is no CT evidence of interval acute cerebral infarct, intracranial hemorrhage, brain herniation, or hydrocephalus. There is no abnormal IV contrast enhancement. The visualized ho-chunk of [place] vasculature structures show no gross abnormality. Basal cisterns are unremarkable. The extracranial soft tissue, skull, and orbits are unremarkable. Again seen postop changes to the paranasal sinuses with right middle turbinectomy, partial right ethmoidectomy, right medial maxillary wall antrostomy and uncinectomy, and resection of the sphenoethmoid region. IMPRESSION: 1: Stable CT scan of brain with no evidence of interval acute intracranial process. There is no abnormal IV contrast enhancement. 2: Stable moderate chronic cerebral infarct involving the left parietal lobe. 3: Chronic small vessel ischemic disease which has not significantly changed. Dictated by: Dictated on workstation # [id number]
== END ==
LOC: RAD 13:33
PROVIDERS: ATTEND Family Medicine
DX: I63.9 Cerebral infarction, unspecified (principal); I67.82 Cerebral ischemia; E03.9 Hypothyroidism, unspecified
CPT/HCPCS: 70470

== ENCOUNTER → 2018-02-10 | Outpatient (CLI) | payer MEDICARE, OTHER ==
[~2018-02-10] MED LIST changes: -IOHEXOL 350 MG/ML 100 ML (OMNIPAQUE 350) VIAL IV ONE; -NS 250 ML (IVPB) BAG IV ONE
--- NOTE | 2018-02-10 17:00 | Diagnostic Imaging Report ---
INDICATION: Cough and shortness of breath. COMPARISON: 11/15/2017. FINDINGS: The heart size is normal. The lungs are clear. There is no pleural effusion or pneumothorax. The mediastinum is unremarkable. There has been previous median sternotomy and coronary artery bypass graft. IMPRESSION: No acute cardiopulmonary abnormality. Dictated by: Dictated on workstation # [id number]
== END ==
LOC: RAD 16:24
PROVIDERS: ATTEND Family Medicine
DX: J20.9 Acute bronchitis, unspecified (principal)
CPT/HCPCS: 71046

== ENCOUNTER → 2018-02-26 | Outpatient (CLI) | payer MEDICARE, OTHER ==
[~2018-02-26] MED LIST changes: +CATHETER FLUSH 10 ML SYR IV PRN; +REGADENOSON 0.4 MG/5 ML SYR (LEXISCAN) IV ONE
[2018-02-26 09:03] VITALS: BP 109/63
[2018-02-26 09:09] VITALS: BP 116/59
--- NOTE | 2018-02-26 22:15 | STRESS TEST ---
DATE OF SERVICE: 02/26/2018 LEXISCAN MYOVIEW STRESS TEST REPORT REFERRING PHYSICIAN: Dr. Avalos. Baseline heart rate is 62. Baseline blood pressure 125/72. Baseline EKG is sinus rhythm with no ischemic changes. In summary, the patient was injected with 9.99 mCi of technetium-99 Myoview and the resting images were obtained. Then, the patient received 0.4 mg of Lexiscan followed by 31.7 mCi of technetium-99 Myoview. Throughout the test, there were no significant EKG changes. The resting and stress images were reviewed and compared in the short axis, horizontal long axis, and vertical long axis views. Review of the images showed no significant ischemia or infarction. SSS is 0. TID value 0.83. On the gated images, the left ventricle appeared to be in normal size with normal contractility. Calculated ejection fraction 54%. CONCLUSION: 1. The patient tolerated Lexiscan well. 2. No significant ischemia or infarction on SPECT images. 3. Normal left ventricular size with normal contractility. Calculated ejection fraction 54%. Job ID: [id number] DocumentID: [id number] Dictated Date: 02/26/2018 15:37:16 Taxi Driver Date: 02/26/2018 22:15:24 Dictated By: DARSHAN SEGUNDO MD
== END ==
LOC: CARD 07:39
PROVIDERS: ATTEND Internal Medicine Cardiovascular Disease
DX: I25.10 Atherosclerotic heart disease of native coronary artery without angina pectoris (principal); I10 Essential (primary) hypertension; E78.5 Hyperlipidemia, unspecified; I48.0 Paroxysmal atrial fibrillation
CPT/HCPCS: 78452; 93017

== ENCOUNTER → 2019-08-27 | Outpatient (CLI) | payer MEDICARE, OTHER ==
[~2019-08-27] MED LIST changes: -CATHETER FLUSH 10 ML SYR IV PRN; +HYDR-4196 PO; -HYDR-753 PO; -OXYC-202 PO; +OXYC1TAB12 PO; -REGADENOSON 0.4 MG/5 ML SYR (LEXISCAN) IV ONE; -RIVA20TA PO; +RIVA20TA2 PO
--- NOTE | 2019-08-27 14:24 | Diagnostic Imaging Report ---
INDICATION: Elbow pain after fall. COMPARISON: None available. TECHNIQUE: Three views of the right elbow were obtained. FINDINGS: There is an acute simple fracture involving the base of the olecranon. This has approximately 1.2 cm of fracture and diastases due to proximal pull from the triceps. No additional acute fracture. Soft tissue swelling and subcutaneous contusion and/or edema. No elbow joint effusion. IMPRESSION: 1. Acute simple fracture of the olecranon has proximal distraction by 1.2 cm. Dictated by: Dictated on workstation # [id number]
--- NOTE | 2019-08-27 14:26 | Diagnostic Imaging Report ---
INDICATION: Fall. TIME OF EXAM: 1:56 p.m. Two views of the right ribs were obtained. There appear to be old fractures involving the right fifth, sixth and seventh posterior ribs. This was seen on prior chest x-ray from January 2018. No new rib fractures are identified. No pulmonary contusion, effusion or pneumothorax is seen. There are postoperative changes of median sternotomy and CABG. Postoperative changes of the right shoulder are also noted. IMPRESSION: No acute bony abnormality is detected. Dictated by: Dictated on workstation # [id number]
== END ==
LOC: RAD 13:35
PROVIDERS: ATTEND Nurse Practitioner Family
DX: S52.021A Displaced fracture of olecranon process without intraarticular extension of right ulna, initial encounter for closed fracture (principal); R07.81 Pleurodynia; W19.XXXA Unspecified fall, initial encounter; Z95.5 Presence of coronary angioplasty implant and graft; Z98.890 Other specified postprocedural states
CPT/HCPCS: 71100; 73080

== ENCOUNTER 2020-05-09 10:51 | Observation (INO) | payer MEDICARE, OTHER ==
[~2020-05-09] VITALS: Ht 160 cm; Wt 84.7 kg
[2020-05-09] MEDS ORDERED: dilTIAZem DRIP PRE-MIX 125 ML IV SCH (11:15)
[2020-05-09] MEDS ORDERED: NS IV 1000 ML 1,000 ML IV SCH (11:15)
[2020-05-09] MEDS ORDERED: ASPIRIN 81 MG CHEW (CHILDREN'S ASA) PO ONE (11:15)
--- NOTE | 2020-05-09 11:34 | Diagnostic Imaging Report ---
INDICATION: Shortness of air, chest pain. TECHNIQUE: Single view chest 11:20 AM. CORRELATION STUDY: 02/10/2018 FINDINGS: Poststernotomy and coronary artery bypass. Heart size borderline enlarged. Vasculature is a slightly prominent without evidence of overt failure. Chronic appearing changes about the lung parenchyma. No consolidating infiltrate. Multiple old healed bilateral rib fracture deformities likely distal right clavicle fracture from a prior right rotator cuff surgery. IMPRESSION: 1. . Poststernotomy changes. Dictated by: Dictated on workstation # [id number]
[2020-05-09 11:35] LABS: BASOPHILS % (AUTO) 0 % (0-10); EOSINOPHILS # (AUTO) 0.3 10^3/uL (0.0-0.3); EOSINOPHILS % (AUTO) 3 % (0-10); HEMATOCRIT 44 % (35-52); LYMPHOCYTES # (AUTO) 1.9 X 10^3 (1.0-4.0); LYMPHOCYTES % (AUTO) 25 % (12-44); MEAN CORPUSCULAR HEMOGLOBIN 30 PG (25-34); MEAN CORPUSCULAR HGB CONC 32 G/DL (32-36); MEAN CORPUSCULAR VOLUME 94 FL (80-99); MEAN PLATELET VOLUME 9.6 FL (7.4-10.4); MONOCYTES # (AUTO) 0.9 X 10^3 (0.0-1.0); MONOCYTES % (AUTO) 11 % (0-12); NEUTROPHILS # (AUTO) 4.5 X 10^3 (1.8-7.8); NEUTROPHILS % (AUTO) 60 % (42-75); PLATELET COUNT 256 10^3/uL (130-400); RED CELL DISTRIBUTION WIDTH 15.2 % (10.0-14.5); WHITE BLOOD COUNT 7.6 10^3/uL (4.3-11.0)
--- NOTE | 2020-05-09 11:42 | NUR ---
DR DELVALLE NOTIFIED OF HR OF 102-105. CARDIZEM HELD PER DR BARCENAS.
[2020-05-09 11:43] LABS: ALBUMIN 4.2 GM/DL (3.2-4.5)
[2020-05-09 11:44] LABS: POTASSIUM 4.3 MMOL/L (3.6-5.0)
[2020-05-09 11:45] LABS: CALCIUM 9.8 MG/DL (8.5-10.1)
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
[2020-05-09 11:46] LABS: TOTAL PROTEIN 7.4 GM/DL (6.4-8.2)
[2020-05-09 11:48] LABS: BILIRUBIN,TOTAL 0.5 MG/DL (0.1-1.0); FIBRIN DEGRADATION PRODUCTS 0.59 UG/ML (0.00-0.49); INR 1.6 (0.8-1.4)
[2020-05-09 11:49] LABS: CREATININE SERUM 1.51 MG/DL (0.60-1.30)
[2020-05-09 11:52] LABS: MAGNESIUM 2.2 MG/DL (1.6-2.4)
--- NOTE | 2020-05-09 12:32 | NUR ---
PT HAS BEEN TALKING TO THRUOUT ER VISIT.
[2020-05-09] MEDS ORDERED: ACETAMINOPHEN 500 MG TAB (TYLENOL) PO PRN (13:30)
[2020-05-09] MEDS ORDERED: NITROGLYCERIN 0.4 MG SL TABS BTL 25'S SL PRN (13:30)
[2020-05-09] MEDS ORDERED: ONDANSETRON 4 MG/2 ML (SDV) Z0FRAN IVP PRN (13:30)
[2020-05-09] MEDS ORDERED: fentaNYL INJECTION 100 MCG/2 ML AMP IV PRN (13:30)
[2020-05-09] MEDS ORDERED: CATHETER FLUSH 10 ML SYR IV PRN (13:30)
[2020-05-09] MEDS ORDERED: ANTACID SUSP 30 ML UDC (MYLANTA) PO PRN (13:30)
[2020-05-09 13:44] VITALS: BP 159/82
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
--- OUTSIDE RECORDS SUMMARY | 2020-05-09 13:56 | XMS REPORT ---
Author Author [employer] [facility] [email or web address] [facility] Emergency Department [facility] Address [address] [address] Care Team Providers Care Intake Manager Name Role Phone ERIC RAYMOND Unavailable RIKA SHRESTHA, STEVE Jara Unavailable Unavailable KATE SHRESTHA, ISABELA Unavailable Unavailable SEXTON DO, AYUSH Unavailable Unavailable DARSHAN DO, AYUSH Unavailable Unavailable SEGUNDO SHRESTHA, ERIC R Unavailable Unavailable SEGUNDO SHRESTHA, ERIC R Unavailable Unavailable SARAH FRASER Unavailable Unavailable ERIC MARRERO DO Unavailable Unavailable SANYA SHRESTHA, DARSHAN Villasenor Unavailable Unavailable SEGUNDO SHRESTHA, ERIC R Unavailable Unavailable SEGUNDO SHRESTHA, ERIC R Unavailable Unavailable KATE SHRESTHA, ISABELA Unavailable Unavailable BRODY ALANIS, HARSH B Unavailable Unavailable SCOUT GRIJALVA Unavailable Unavailab jenny CARMONA MD, GENIA Villasenor Unavailable Unavailable ADRIAN RAHMAN Unavailable Unavailable AMAN ZAMARRIPA Unavailable Unavailable STEVE MELÉNDEZ MD Unavailable Unavailable SEXTON DO, AYUSH Unavailable Unavailable DARSHAN DO, AYUSH Unavailable Unavailable ANA FATIMA MD Unavailable Unavailable BRONWYN LIMON DO Unavailable Unavailable Unavailable Unavailable Unavailable Unavailable Unavailable Unavailable Allergies Allergy Reported Allergen(s) Allergy Type Date of Reaction(s) Care Facility Classificati Onset Provider on Unclassified erythromycin base DA 03-03-2007 (22 sources) Encounters Encounter Date Encounter Type Encounter Diagnosis Care Provider Facility Start: Patient encounter AMAN ZAMARRIPA [facility] [address] 08-27-2019 procedure [facility] ([id number]) Start: Patient encounter DARSHAN SEGUNDO MD Not Availa ble ([id number]) 02-26-2018 procedure Start: Patient encounter DARSHAN SEGUNDO MD [facility] [address] 02-26-2018 [facility] ([id number]) Start: Patient encounter 02-19-2018 procedure Start: Patient encounter DARSHAN SEGUNDO MD [facility] 02-19-2018 procedure [facility] ([id number]) Start: Patient encounter 02-10-2018 procedure Start: Patient encounter ERIC RAYMOND MD [facility] 02-10-2018 procedure [facility] ([id number]) Start: Patient encounter ERIC RAYMOND MD Not Availa ble ([id number]) 01-16-2018 procedure Start: Patient encounter ERIC RAYMOND MD [facility] 01-16-2018 procedure [facility] ([id number]) Start: Patient encounter 01-03-2018 procedure Start: Patient encounter ERIC RAYMOND MD [facility] 01-03-2018 procedure [facility] ([id number]) Start: Patient encounter 11-15-2017 procedure Start: Patient encounter BRONWYN LIMON DO [facility] 11-15-2017 procedure [facility] ([id number]) Start: Patient encounter 10-25-2017 procedure Start: Emergency department ADRIAN FARLEY [facility] 10-25-2017 patient visit [facility] ([id number]) End: 10-25-2017 Start: Emergency department HARSH SKINNER DO [facility] 09-04-2017 patient visit [facility] ([id number]) End: 09-04-2017 Start: Patient encounter STEVE MELÉNDEZ MD Not Av ailable ([id number]) 06-03-2017 procedure Start: Emergency department STEVE MELÉNDEZ MD [facility] 06-03-2017 patient visit [facility] ([id number]) End: 06-03-2017 Start: Patient encounter AYUSH SEXTON DO Not Availa ble ([id number]) 09-27-2016 procedure End: 09-30-2016 Start: Evaluation and AYUSH SEXTON DO [facility] 09-27-2016 management of [facility] inpatient ([id number]) End: 09-30-2016 Start: Patient encounter ISABELA LOVE MD Not A vailable ([id number]) 08-29-2016 procedure Start: Patient encounter ISABELA LOVE MD [facility] 08-29-2016 procedure [facility] ([id number]) Start: Evaluation and REIC RAYMOND MD [facility] ti 06-28-2016 management of [facility] inpatient ([id number]) End: 07-03-2016 Start: Patient encounter SCOUT [facility] is 06-18-2016 procedure [facility] ([id number]) Start: Patient encounter SCOUT Not Availab le ([id number]) 05-08-2016 procedure [facility] Start: Patient encounter SCOUT [facility] is 05-08-2016 procedure [facility] ([id number]) Start: Patient encounter ERIC MARRERO DO [facility] 09-12-2015 procedure [facility] ([id number]) End: 09-12-2015 Start: Patient encounter GENIA CARMONA MD Not Availab le ([id number]) 06-23-2015 procedure Start: Patient encounter GENIA CARMONA MD [facility] 06-23-2015 [facility] ([id number]) Start: Patient encounter 03-01-2015 procedure Start: Patient encounter DARSHAN SEGUNDO MD Not Availa ble ([id number]) 01-24-2015 procedure Start: Patient encounter DARSHAN SEGUNDO MD [facility] 01-24-2015 procedure [facility] ([id number]) Start: Patient encounter ERIC MARRERO DO Not Availa ble ([id number]) 12-21-2014 procedure Start: Patient encounter ERIC MARRERO DO [facility] 12-21-2014 [facility] ([id number]) Start: Patient encounter ERIC MARRERO DO Not Availa ble ([id number]) 12-17-2014 procedure End: 12-18-2014 Start: Patient encounter SARAH FRASER Not Availab le ([id number]) 05-07-2013 procedure Start: Patient encounter 03-02-2007 procedure Start: Patient encounter ERIC RAYMOND MD [facility] 03-02-2007 procedure [facility] Patient encounter NA NA Not Available (0000 0) procedure Medical Equipment No Information Goals No Information Immunizations The data below is from unstructured sourcesNo immunization records. Interventions No Information Medications No Information Payers No Information Plan of Treatment The data below is from unstructured sources Discharge Date 09/30/16 1:35pm Disposition 01 HOME, SELF-CARE Instructions/Education Provided Pnrashawn burrell, Adult (DC) Prescriptions See Medication Section Care Plan and Goals See Discharge In structions Section Discharge Date 09/12/15 3:00pm Prescriptions See Medication Section Discharge Date 03/04/15 11:45am Disposition 30 STILL A PATIENT Instructions/Education Provided Urin guido Tract Infection in Women (DC) Chronic Obstructive Pulmonary Disease (DC) Prescriptions See Medications Sectio n Referrals ERIC MARRERO DO (Unspeci fied) 6 Weeks Address: [address] [place] [address] [id number] Reason(s) for Referral: Your appointment with Dr. Marrero is on 2014 at 145 pm. Please arrive 15 to 30 minutes early to fill out the n ew patient paper work ERIC RAYMOND MD (Unspecified) 2 Weeks Address: [address] [place], [place] [address] Reason(s) for Referral: Your follow up appointment is on 2013 at 11 am (Unspecified) Reason(s) for Referral: [facility] ([facility]) SEG (Unspecified) 03/17/15 Reason(s) for Referral: 1:30 Discharge Date 11/21/14 7:50am Instructions/Education Provided Comm unity-acquired Pneumonia (DC) Prescriptions See Medications Sectio n Referrals ERIC MARRERO DO (Unspeci fied) 6 Weeks Address: [address] [place] [address] [phone] Reason(s) for Referral: Your appointment with Dr. Marrero is on 2014 at 145 pm. Please arrive 15 to 30 minutes early to fill out the n ew patient paper work ERIC RAYMOND MD (Unspecified) 2 Weeks Address: [address] [place] [id number] Reason(s) for Referral: Your follow up appointment is on 2013 at 11 am (Unspecified) Reason(s) for Referral: [facility] ([facility]) Discharge Date 08/26/14 1:30pm Disposition 30 STILL A PATIENT Instructions/Education Provided Bact erial Pneumonia (DC) Forms Provided PDI Medical Prescriptions See Medications Sectio n ERIC Ortega DO (Unspeci fied) 6 Weeks Address: [address] [place] [address]&[place] [address] ERIC RAYMOND MD (Unspecified) 2 Weeks Address: [address] [place] [id number] Discharge Date 11/21/14 1:00pm Disposition 30 STILL A PATIENT Instructions/Education Provided Comm unity-acquired Pneumonia (DC) Forms Provided Follow-Up Fax Prescriptions See Medications Sectio n Referrals ERIC MARRERO DO (Unspeci fied) 6 Weeks Address: [address] [place] [address]&[place] [address] Reason(s) for Referral: Your appointment with Dr. Marrero is on 2014 at 145 pm. Please arrive 15 to 30 minutes early to fill out the n ew patient paper work ERIC RAYMOND MD (Unspecified) 2 Weeks Address: [address] [place] [address] Reason(s) for Referral: Your follow up appointment is on 2013 at 11 am (Unspecified) Reason(s) for Referral: [facility] ([facility]) Additional Instructions/Education PU LMONARY FUNCTION JO ANN November Care Plan and Goals Patient has requ ested [facility] [place] short [place]. If patient discharges over the weekend RN needs to obtain orders and fax to Abdulaziz Lopez to [phone] and call [phone] to notify of discharge. Discharge Date 10/25/17 7:00pm Disposition 01 HOME, SELF-CARE Condition at Discharge Improved Instructions/Education Provided Elbo w Fracture (DC) Prescriptions See Medication Section Referrals BRONWYN LIMON DO Address: [address] [place] [id number] ERIC RAYMOND MD Order Date: Primary Care Physician Address: [address] [place] [address] Note: ERIC RAYMOND MD Order Date: Primary Care Physician Address: [address] [place] [address] Note: Additional Instructions/Education Al l discharge instructions reviewed with patient and/or family. Voiced understanding. Medications as instructed. Do not use hydrocodone with oxycodone. Elevate the left arm on pillows, ice pack for 20 minute intervals as needed for pain. Arm sling as instructed. Right arm activities only until released by Dr. Limon. Follow-up with Dr. Limon as an outpatient within the next 7 days for recheck. Call Saturday for appointment time. Return to the emergency department for worsened pain, pain from the splint, numbness, weakness, neck pain, back pain, shortness of air, chest pain, seizure, headache, changes in behavior, slurred speech, or any other concerns. Problems Active Problems Problem Problem Date Last Documented Episodic/Chr Provider Classificati Recorded Date onic on Acute Acute bronchitis, unspecified ; Episodic ERIC SEGLIE bronchitis Translations: [Acute bronchitis] MD (4 sources) Acute Cerebral infarction, unspecified Chronic ERIC SEGLIE cerebrovascu MD lar disease (4 sources) Bacterial Enterococcus as the cause of Episodic ERIC SEGLIE infection; diseases classified elsewhere ; MD unspecified Translations: [UNSP ESCHERI JOSE site COLI THE CAUSE OF DI] (3 sources) Cardiac Paroxysmal atrial fibrillation ; Chronic ERIC SEGLIE dysrhythmias Translations: [Unspecified atrial M D (20 sources) fibrillation] Chronic Chronic kidney disease, unspecified Chronic ERIC SEGLIE kidney ; Translations: [Chronic kidney MD disease disease, stage 3 (moderate) ] (9 sources) Coma; Other alteration of consciousness Ep isodic stupor; and brain damage (2 sources) Congestive Heart failure, unspecified Chronic M LEEANNE SEXTON heart DO failure; nonhypertens sheron (4 sources) 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 without DO sis and angina pectoris ; Translati ons: other heart [Coronary atherosclerosis o f disease unspecified type of vessel, [place] (20 sources) or graft] Coronary Presence of aortocoronary bypass Episodic ERIC SEGLIE atherosclero graft ; Translations: [Presence of MD sis and coronary angioplasty implan t and other heart graft] disease (16 sources) Deficiency Anemia, unspecified Episodic ERIC SE GLIJud and other MD anemia (5 sources) Diabetes 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 ABO UL-MAGD with MD complication s (3 sources) Diseases of Elevated white blood cell count, Chronic AYUSH SEXTON white blood unspecified DO cells (4 sources) Disorders of Hyperlipidemia, unspecified ; Chronic BASHAR SANYA lipid Translations: [Other and MD metabolism unspecified hyperlipidemia] (20 sources) E Codes: Unspecified fall ; Translations: Episodic ERIC SEGLIE Fall [Fall on same level from slipping, MD (8 sources) tripping and stumbling with out subsequent striking against object, initial encounter] E Codes: Other external cause status Episodic ERIC SEGLIE Unspecified MD (2 sources) Esophageal Gastro-esophageal reflux disease Chronic AYUSH SEXTON disorders without esophagitis DO (18 sources) Essential Essential (primary) hypertension ; Chronic BASHAR SANYA hypertension Translations: [Unspecified MD (14 sources) essential hypertension] Fluid and Hypo-osmolality and hyponatremia ; Episodic ERIC SEGLIE electrolyte Translations: [DEHYDRATION] MD disorders (8 sources) Fracture of Displaced fracture of olecranon Episodic ADRIAN upper limb process without intraarticular [place] (5 sources) extension of left ulna, ini tial encounter for closed fracture Fracture of Displaced fracture of olecranon Episodic AMAN VAN upper limb process without intraarticular JABARI (1 source) extension of right ulna, in itial encounter for closed fracture Genitourinar Other microscopic hematuria ; Episodic ADRIAN y symptoms Translations: [Personal history of ANA FARLEY and urinary (tract) infections] ill-defined conditions (9 sources) Heart valve Nonrheumatic mitral (valve) Chronic ERIC SEGLIE disorders insufficiency ; Translations: (9 sources) [Rheumatic disorders of bot h mitral and tricuspid valves] Hypertension Hypertensive chronic kidney disease Chronic ERIC SEGLIE with with stage 1 through stage 4 MD complication chronic kidney disease, or s and unspecified chronic kidney disease secondary ; Translations: [Hypertensi ve heart hypertension and chronic kidney disease with (9 sources) heart failure and stage 1 t hrough stage 4 chronic kidney disease, or unspecified chronic kidney disease] Mood Major depressive disorder, single Chronic ERIC SEGLIE disorders episode, unspecified MD (20 sources) Occlusion or Occlusion and stenosis of carotid Chronic ERIC MARRERO stenosis of artery without mention of cerebral DO precerebral infarction ; Translations: arteries [Occlusion and stenosis of (12 sources) bilateral carotid arteries] Osteoarthrit Unspecified osteoarthritis, Chronic AYUSH SEXTON is unspecified site DO (4 sources) Osteoporosis Age-related osteoporosis without Chronic ERIC SEGLIE (20 sources) current pathological fracture MD Other Encounter for adjustment and Episodic BRONWYN LIMON aftercare management of vascular access DO (6 sources) device Other group home (current) use of Episodic G RETCHEN aftercare anticoagulants ANA FARLEY (5 sources) Other and Cerebral ischemia Chronic ERIC SEGL IE ill-defined MD cerebrovascu lar disease (4 sources) Other bone Scoliosis [and kyphoscoliosis], Chronic GENIA IPSEN disease and idiopathic MD musculoskele tha deformities (2 sources) Other bone Disorder of bone and cartilage, Episodic ERIC SEGLIE disease and unspecified MD musculoskele tha deformities (2 sources) Other Personal history of transient Episodic ERIC SEGLIE circulatory ischemic attack (TIA), and cerebral MD disease infarction without residual (20 sources) deficits Other Presence of right artificial knee Chronic STEVE connective joint HUSLIA MD tissue disease (14 sources) Other Presence of unspecified artificial Chronic STEVE connective hip joint HUSLIA MD tissue disease (7 sources) Other Arthrodesis status Episodic ADRIAN connective ANA FARLEY tissue disease (5 sources) Other Personal history of other diseases Episodic HARSH DELMAN gastrointest of the digestive system DO inal disorders (7 sources) Other Personal history of other Episodic FL OYD SEGLIE infections; infectious and parasitic diseases M D including parasitic (2 sources) Other Knee, leg, ankle, and foot injury Episodic ERIC SEGLIE injuries and MD conditions due to external causes (2 sources) Other lower Chronic pulmonary edema Chronic FLOY D SEGLIE respiratory MD disease (2 sources) Other lower Personal history of pneumonia Episodic STEVE respiratory (recurrent) HUSLIA MD disease (9 sources) Other lower Other respiratory abnormalities Episodic SARAH respiratory FRASER disease (7 sources) Other lower Other diseases of lung, not Episodic ERIC EILDA respiratory elsewhere classified DO disease (2 sources) Other lower Snoring Episodic ERIC ELIDA respiratory DO disease (2 sources) Other lower Shortness of breath Episodic ERIC SE GLIE respiratory MD disease (6 sources) Other lower Pleurodynia Episodic AMAN VAN respiratory JABARI disease (1 source) Other Pain in left elbow Episodic ADRIAN non-traumati ANA FARLEY c joint disorders (5 sources) Other Obesity, unspecified Chronic nutritional; endocrine; and metabolic disorders (2 sources) Other upper Unspecified sinusitis (chronic) Chronic ERIC SEGLIE respiratory MD infections (1 source) Residual Idiopathic sleep related Chronic ROYCE ON ELIDA codes; non-obstructive alveolar DO unclassified hypoventilation (2 sources) Residual Idiopathic sleep related Chronic ROYCE ON ELIDA codes; nonobstructive alveolar DO unclassified hypoventilation (2 sources) Residual Insomnia, unspecified Episodic ERIC SEGLIE codes; MD unclassified (2 sources) Residual Family history of ischemic heart Episodic HARSH DELMAN codes; disease and other diseases of the D O unclassified circulatory system ; Transl ations: (6 sources) [ACQUIRED ABSENCE OF BOTH C ERVIX AND UTER] Residual Other specified postprocedural Episodic AMAN VAN codes; states JABARI unclassified (1 source) Screening Personal history of nicotine Episodic ERIC SEGLIE and history dependence MD of mental health and substance abuse codes (20 sources) Spondylosis; Degeneration of lumbar or Chronic BR PHILIPP IPSEN intervertebr lumbosacral intervertebral disc al disc disorders; other back problems (2 sources) Spondylosis; Dorsalgia, unspecified ; Episodic BRANDI YD SEGLIE intervertebr Translations: [Cervicalgia] al disc disorders; other back problems (4 sources) Thyroid Hypothyroidism, unspecified Chronic ERIC SEGLIE disorders MD (20 sources) Past or Other Problems Problem Problem Date Last Documented Episodic/Chr Provider Classificati Recorded Date onic on Calculus of Personal history of urinary calculi Episodic STEVE urinary HUSLIA MD tract (9 sources) Cardiac Palpitations ; Translations: Episodic SARAH dysrhythmias [PALPITATIONS] FRASER (2 sources) Crushing Traumatic hemopneumothorax, initial Episodic HARSH DELMAN injury or encounter DO internal injury (2 sources) E Codes: Striking against other object with Episodic HARSH DELMAN Struck by; subsequent fall, initial encounter DO against (2 sources) Immunization Encounter for immunization Episodic M LEEANNE SEXTON s and DO screening for infectious disease (4 sources) Open wounds Puncture wound without foreign body Episodic HARSH DELMAN of head; of other specified part of neck, DO neck; and initial encounter trunk (2 sources) Other skin Personal history of diseases of the Episodic STEVE disorders skin and subcutaneous tissue STEBBI LEIDY SHRESTHA (9 sources) 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; uterus ; Translations: [FAMILY HX S TEBBVALENTE SHRESTHA unclassified OF ISCHEM HEART DIS AND OTH DI] (10 sources) Unclassified ERIC RAYMOND (6 sources) Unclassified ERIC RAYMOND (6 sources) Unclassified ERIC RAYMOND (6 sources) Unclassified ERIC RAYMOND (6 sources) Viral Herpesviral vesicular dermatitis Episodic AYUSH SEXTON infection DO (4 sources) Procedures The data below is from unstructured sources Procedure Status Date Provider(s) Color Doppler echocardiography Active 06/30/16 ERIC RAYMOND MD Procedure Status Date Provider(s) X-ray of chest, single view Active 06/03/17 STEVE MELÉNDEZ MD Tracing only of electrocardiogram Active 06/03/17 STEVE MELÉNDEZ MD Results Test Name Value Interpreta Reference Facilit Date tion Range y Time not yet categorized on 2020-05-09 PROCALCITONIN (PCT) 0.03 Negative <0.10 PENDING ng/mL [address] 07:10-0 ([id number]) 400 laboratory on 2020-05-09 Albumin [Mass/Vol] 4.2 g/dL Negative 3.2-4.5 PENDING 04-27 3-2 g/dL [facility] [address] [place] [address] 07:10-0 ([id number]) 400 ALP [Catalytic 98 U/L Negative 40-136 U/L PENDING activity/Vol] [facility]IO [facility] 07:10-0 ([id number]) 400 ALT [Catalytic 26 U/L Negative 0-55 U/L PENDING activity/Vol] [facility] 020 [facility] 07:10-0 ([id number]) 400 Anion gap 14 mmol/L Negative 5-14 PENDING [Moles/Vol] mmol/L [facility] 0[facility] 07:10-0 ([id number]) 400 aPTT Coag (PPP) 34 s Negative 24-35 s PENDING [Time] [facility] 020 [facility] 07:10-0 ([id number]) 400 AST [Catalytic 28 U/L Negative 5-34 U/L PENDING activity/Vol] [facility] 020 [facility] 07:10-0 ([id number]) 400 Basophils (Bld) 0.0 10*3/uL Negative 0.0-0.1 PENDING 05-09 -2 [#/Vol] 10*3/uL [facility] 020 [facility] 07:10-0 ([id number]) 400 Basophils/100 WBC 0 % Negative 0-10 % PENDING 05-09 -2 (Bld) [facility] 020 [facility] 07:10-0 ([id number]) 400 Bilirubin [Mass/Vol] 0.5 mg/dL Negative 0.1-1.0 PENDING -2 mg/dL [facility] 020 [facility] 07:10-0 ([id number]) 400 Calcium [Mass/Vol] 9.8 mg/dL Negative 8.5-10.1 PENDING 07-1 3-2 mg/dL [facility] 020 [facility] 07:10-0 ([id number]) 400 Calcium [Mass/Vol] 9.6 mg/dL Negative 8.5-10.1 PENDING 07-1 3-2 mg/dL [facility] 020 [facility] 07:10-0 ([id number]) 400 Chloride [Moles/Vol] 97 mmol/L Low 98-107 PENDING -2 mmol/L [facility] 020 [facility] 07:10-0 ([id number]) 400 CO2 [Moles/Vol] 29 mmol/L Negative 21-32 PENDING 05-09-2 mmol/L [facility] 020 [facility] 07:10-0 ([id number]) 400 Creatinine 1.51 mg/dL High 0.60-1.30 PENDING 05-09-2 [Mass/Vol] mg/dL [facility] 020 [facility] 07:10-0 ([id number]) 400 Creatinine and 34 Invalid PENDING 05-09-2 Glomerular Interpreta LOCATIO 020 filtration tion Code [facility] 07:10-0 rate.predicted panel ([id number]) 400 - Serum, Plasma or Blood Eosinophils (Bld) 0.3 10*3/uL Negative 0.0-0.3 PENDING -2 [#/Vol] 10*3/uL LOC[facility]IO 020 [facility] 07:10-0 ([id number]) 400 Eosinophils/100 WBC 3 % Negative 0-10 % PENDING -2 (Bld) LOCATIO 020 [facility] 07:10-0 ([id number]) 400 Erythrocyte 15.2 % High 10.0-14.5 PENDING distribution width % LOCATIO 020 (RBC) [Ratio] [facility] 07:10-0 ([id number]) 400 Fibrin D-dimer FEU 0.59 High 0.00-0.49 PENDING 04-27 3-2 (PPP) [Mass/Vol] ug/mL LOC[facility]IO 020 [facility] 07:10-0 ([id number]) 400 Glucose [Mass/Vol] 126 mg/dL High 70-105 PENDING 04-27 3-2 mg/dL LOCATIO 020 [facility] 07:10-0 ([id number]) 400 Hematocrit (Bld) 44 % Negative 35-52 % PENDING [Volume fraction] LOCATIO 020 [facility] 07:10-0 ([id number]) 400 Hemoglobin (Bld) 14.0 g/dL Negative 11.5-16.0 PENDING [Mass/Vol] g/dL LOC[facility] 020 [facility] 07:10-0 ([id number]) 400 INR Coag (Platelet 1.6 High 0.8-1.4 PENDING 04-272 poor plasma or LOCATIO 020 blood) [Relative N [facility] 07:10-0 time] ([id number]) 400 Lymphocytes (Bld) 1.9 10*3/uL Negative 1.0-4.0 PENDING [#/Vol] 10*3 LOCATIO 020 [facility] 07:10-0 ([id number]) 400 Lymphocytes/100 WBC 25 % Negative 12-44 % PENDING (Bld) LOC[facility]IO 020 [facility] 07:10-0 ([id number]) 400 Magnesium [Mass/Vol] 2.2 mg/dL Negative 1.6-2.4 PENDING mg/[facility] 07:10-0 ([id number]) 400 MCH (RBC) [Entitic 30 pg Negative 25-34 pg PENDING - 3-2 mass] LOCATIO 020 [facility] 07:10-0 ([id number]) 400 MCHC (RBC) 32 g/dL Negative 32-36 g/dL PENDING 07-13-2 [Mass/Vol] LOCATIO 020 [facility] 07:10-0 ([id number]) 400 MCV (RBC) [Entitic 94 Negative 80-99 PENDING 07-1 3-2 vol] [foz_us] LOCAT[facility] 020 [facility] 07:10-0 ([id number]) 400 Monocytes (Bld) 0.9 10*3/uL Negative 0.0-1.0 PENDING 05-09 [#/Vol] 10*3 LOCAT[facility] 020 [facility] 07:10-0 ([id number]) 400 Monocytes/100 WBC 11 % Negative 0-12 % PENDING 05-09 (Bld) LOCATIO 020 [facility] 07:10-0 ([id number]) 400 Myoglobin [Mass/Vol] 100.9 ng/mL High 10.0-92.0 PENDING ng/mL LOCAT[facility] 020 [facility] 07:10-0 ([id number]) 400 Natriuretic peptide 61.0 pg/mL Invalid <100.0 PENDING B (Bld) [Mass/Vol] Interpreta pg/mL LOCATIO 020 tion Code [facility] 07:10-0 ([id number]) 400 Neutrophils (Bld) 4.5 10*3/uL Negative 1.8-7.8 PENDING [#/Vol] 10*3 LOCAT[facility] 020 [facility] 07:10-0 ([id number]) 400 Neutrophils/100 WBC 60 % Negative 42-75 % PENDING (Bld) LOCATIO 020 [facility] 07:10-0 ([id number]) 400 Platelet mean volume 9.6 Negative 7.4-10.4 PENDING (Bld) [Entitic vol] [foz_us] LOCATIO 020 [facility] 07:10-0 ([id number]) 400 Platelets (Bld) 256 10*3/uL Negative 130-400 PENDING 05-09 [#/Vol] 10*3/uL LOCATIO 020 [facility] 07:10-0 ([id number]) 400 Potassium 4.3 mmol/L Negative 3.6-5.0 PENDING [Moles/Vol] mmol/L LOC[facility] 020 [facility] 07:10-0 ([id number]) 400 Protein [Mass/Vol] 7.4 g/dL Negative 6.4-8.2 PENDING -1 3-2 g/dL LOCATIO 020 [facility] 07:10-0 ([id number]) 400 PT Coag (PPP) [Time] 19.0 s High 12.2-14.7 PENDING -2 s LOCATIO 020 [facility] 07:10-0 ([id number]) 400 RBC (Bld) [#/Vol] 4.66 10*6/uL Negative 4.35-5.85 PENDING 10*6/uL LOCATIO 020 [facility] 07:10-0 ([id number]) 400 Sodium [Moles/Vol] 140 mmol/L Negative 135-145 PENDING 2 mmol/L LOCATIO 020 [facility] 07:10-0 ([id number]) 400 Troponin I.cardiac ng/mL Negative <0.028 PENDING 04-27 3-2 [Mass/Vol] ng/mL LOCATIO 020 [facility] 07:10-0 ([id number]) 400 Urea nitrogen 18 mg/dL Negative 7-18 mg/dL PENDING 2 [Mass/Vol] LOCATIO 020 [facility] 07:10-0 ([id number]) 400 Urea 12 mg/mg Invalid PENDING nitrogen/Creatinine Interpreta LOCATIO 020 [Mass ratio] tion Code [facility] 07:10-0 ([id number]) 400 WBC (Bld) [#/Vol] 7.6 10*3/uL Negative 4.3-11.0 PENDING 10*3/uL LOCATIO 020 [facility] 07:10-0 ([id number]) 400 Social History No Information Vital Signs The data below is from unstructured sources Vital Response Date/Time Temperature (Fahrenheit) 97.0 degree s F (97.6 - 99.5) 07/03/2016 10:30am Temperature (Calculated Celsius) 36. 69768 degrees C (36.4 - 37.5) 07/03/2016 6:00am Temperature Source Tympanic 07/03/2016 10:30am Pulse Rate (adult) 73 bpm (60 - 90) 07/03/2016 10:30am Respiratory Rate 20 bpm (12 - 24) 07/03/2016 10:30am O2 Sat by Pulse Oximetry 90 % (88 - 100) 07/03/2016 10:30am Blood Pressure 123/57 mm Hg 07/03/2016 10:30am Blood Pressure Mean 79 mm Hg 07/03/2016 6:00am Pain Numeric Pain Scale 7 10:30am Height (Feet) 5 feet 6:26pm Height (Inches) 2.00 inches 06/27/2016 6:26pm Height (Calculated Centimeters) 157. 560912 cm 06/27/2016 6:26pm Weight (Pounds) 201 pounds 07/03/2016 6:00am Weight (Ounces) 4.0 oz 0 07/03/2016 6:00am Weight (Calculated Grams) 53312.465 gm 07/03/2016 6:00am Weight (Calculated Kilograms) 91.285 465 kilograms 07/03/2016 6:00am Calculated BMI 35.7 05/30 6:26pm Vital Response Date/Time Temperature (Fahrenheit) 98.1 degree s F (97.6 - 99.5) 09/30/2016 8:00am Temperature (Calculated Celsius) 36. 85783 degrees C (36.4 - 37.5) 09/30/2016 8:00am Temperature Source Tympanic 09/30/2016 8:00am Pulse Rate (adult) 86 bpm (60 - 90) 09/30/2016 8:00am Respiratory Rate 23 bpm (12 - 24) 09/30/2016 8:00am O2 Sat by Pulse Oximetry 94 % (88 - 100) 09/30/2016 10:34am Blood Pressure 114/62 mm Hg 09/30/2016 8:00am Blood Pressure Mean 79 mm Hg 09/30/2016 8:00am Pain Numeric Pain Scale 0-No Pain 09/30/2016 8:00am Height (Feet) 5 feet 10/2015 3:15pm Height (Inches) 2.00 inches 09/27/2016 3:15pm Height (Calculated Centimeters) 157. 227531 cm 09/27/2016 3:15pm Weight (Pounds) 202 pounds 09/28/2016 6:00am Weight (Ounces) 4.0 oz 1 11/29/2015 6:00am Weight (Calculated Grams) 58876.058 gm 09/28/2016 6:00am Weight (Calculated Kilograms) 91.739 058 kilograms 09/28/2016 6:00am Calculated BMI 34.9 10/2015 3:15pm Vital Response Date/Time Temperature (Fahrenheit) 97.7 degree s F (97.6 - 99.5) Temperature (Calculated Celsius) 36. 58397 degrees C (36.4 - 37.5) Temperature Source Temporal Pulse Rate (adult) 83 bpm (60 - 90) Respiratory Rate 18 bpm (12 - 24) O2 Sat by Pulse Oximetry 99 % (88 - 100) Blood Pressure 122/72 mm Hg Vital Response Date/Time Temperature (Fahrenheit) 99.3 degree s F (97.6 - 99.5) Temperature (Calculated Celsius) 37. 05107 degrees C (36.4 - 37.5) Temperature Source Tympanic Pulse Rate (adult) 67 bpm (60 - 90) Respiratory Rate 20 bpm (12 - 24) O2 Sat by Pulse Oximetry 98 % (88 - 100) Blood Pressure 150/78 mm Hg Pain Pain Intensity 0 Height (Feet) 5 feet Height (Inches) 3.00 inches Height (Calculated Centimeters) 160. 446717 cm Weight (Pounds) 186 pounds Weight (Calculated Grams) 90103.182 gm Weight (Calculated Kilograms) 84.368 182 kilograms Calculated BMI 32.94 Vital Response Date/Time Temperature (Fahrenheit) 97.7 degree s F (97.6 - 99.5) Temperature (Calculated Celsius) 36. 94922 degrees C (36.4 - 37.5) Temperature Source Temporal Pulse Rate (adult) 83 bpm (60 - 90) Respiratory Rate 18 bpm (12 - 24) O2 Sat by Pulse Oximetry 99 % (88 - 100) Blood Pressure 122/72 mm Hg Height (Feet) 5 feet Height (Inches) 1.00 inches Height (Calculated Centimeters) 154. 369889 cm Weight (Pounds) 192 pounds Weight (Calculated Grams) 63991.736 gm Weight (Calculated Kilograms) 87.089 736 kilograms Calculated BMI 36.27 Vital Response Date/Time Temperature (Fahrenheit) 98.5 degree s F (97.6 - 99.5) 06/03/2017 9:02am Temperature (Calculated Celsius) 36. 97779 degrees C (36.4 - 37.5) 06/03/2017 9:02am Temperature Source Temporal 06/03/2017 9:02am Pulse Rate (adult) 68 bpm (60 - 90) 06/03/2017 9:02am Respiratory Rate 14 bpm (12 - 24) 06/03/2017 9:02am O2 Sat by Pulse Oximetry 99 % (88 - 100) 06/03/2017 9:47am Blood Pressure 99/50 mm Hg 06/03/2017 9:02am Blood Pressure Mean 66 mm Hg 06/03/2017 9:02am Pain Numeric Pain Scale 5-Moderate Pain 06/03/2017 9:02am Height (Feet) 5 feet 04/2017 9:02am Height (Inches) 2.00 inches 06/03/2017 9:02am Height (Calculated Centimeters) 157. 128851 cm 06/03/2017 9:02am Height Method Stated 04/2017 9:02am Weight (Pounds) 202 pounds 06/03/2017 9:02am Weight (Ounces) 4.0 oz 0 06/03/2017 9:02am Weight (Calculated Grams) 35885.058 gm 06/03/2017 9:02am Weight (Calculated Kilograms) 91.739 058 kilograms 06/03/2017 9:02am Calculated BMI 34.9 04/2017 9:02am Weight Method Stated 04/2017 9:02am Capillary Refill Capillary Refill Less Than 3 Seconds 06/03/2017 9:02am Vital Response Date/Time Temperature (Fahrenheit) 98.3 degree s F (97.6 - 99.5) 10/25/2017 5:16pm Temperature (Calculated Celsius) 36. 56148 degrees C (36.4 - 37.5) 10/25/2017 5:16pm Temperature Source Temporal 10/25/2017 5:16pm Pulse Rate (adult) 86 bpm (60 - 90) 10/25/2017 2:00pm Respiratory Rate 16 bpm (12 - 24) 10/25/2017 2:00pm Blood Pressure 119/87 mm Hg 10/25/2017 2:00pm Blood Pressure Mean 98 mm Hg (65 - 110) 10/25/2017 2:00pm Pain Numeric Pain Scale 8 5:16pm Height (Feet) 5 feet 2:00pm Height (Inches) 4.00 inches 10/25/2017 2:00pm Height (Calculated Centimeters) 162. 122240 cm 10/25/2017 2:00pm Height Method Estimated 10/25/2017 2:00pm Weight (Pounds) 160 pounds 10/25/2017 2:00pm Weight (Calculated Kilograms) 72.574 780 kilograms 10/25/2017 2:00pm Weight Method Estimated 10/25/2017 2:00pm Capillary Refill Capillary Refill Less Than 3 Seconds 10/25/2017 2:00pm Height 5 ft 4 in 017 2:00pm Weight 160 lb 10/25/2017 2:00pm Body Mass Index 27.5 kg/m^2 10/25/2017 2:00pm Vital Response Date/Time Height (Feet) 5 feet 05/2017 12:37pm Height (Inches) 2.00 inches 09/04/2017 12:37pm Height (Calculated Centimeters) 157. 796371 cm 09/04/2017 12:37pm Height Method Stated 05/2017 12:37pm Weight (Pounds) 202 pounds 09/04/2017 12:37pm Weight (Ounces) 4.0 oz 1 11/04/2016 12:37pm Weight (Calculated Grams) 00662.058 gm 09/04/2017 12:37pm Weight (Calculated Kilograms) 91.739 058 kilograms 09/04/2017 12:37pm Calculated BMI 35.15 05/2017 12:37pm Weight Method Stated 05/2017 12:37pm Vital Response Date/Time Height (Feet) 5 feet 05/2017 12:37pm Height (Inches) 2.00 inches 09/04/2017 12:37pm Height (Calculated Centimeters) 157. 193005 cm 09/04/2017 12:37pm Height Method Stated 05/2017 12:37pm Weight (Pounds) 202 pounds 09/04/2017 12:37pm Weight (Ounces) 4.0 oz 1 11/04/2016 12:37pm Weight (Calculated Grams) 46959.058 gm 09/04/2017 12:37pm Weight (Calculated Kilograms) 91.739 058 kilograms 09/04/2017 12:37pm Calculated BMI 35.15 05/2017 12:37pm Weight Method Stated 05/2017 12:37pm Functional Status The data below is from unstructured sources Query Response Date Constantin rded Patient Orientation Person Place Time Situation July 02, 2016 10:35am Patient Orientation Person Place Time Situation Normal For Age July 03, 2016 11:51am Comprehension Ability Understands Co ncepts July 03, 2016 8:00am Query Response Date Constantin rded Patient Orientation Normal For Age September 28, 2016 10:50am Patient Orientation Person Place Time Situation Normal For Age September 30, 2016 1:36pm Comprehension Ability Understands Co ncepts September 30, 2016 7:43am Query Response Date Constantin rded Comprehension Ability Understands Co ncepts March 04, 2015 8:01am Query Response Date Constantin rded Comprehension Ability Understands Co ncepts August 26, 2014 7:56am Query Response Date Constantin rded Comprehension Ability Understands Co ncepts February 28, 2015 8:00am Query Response Date Constantin rded Patient Orientation Person Place Time Situation November 21, 2014 1:33pm Comprehension Ability Understands Co ncepts November 21, 2014 8:00am No functional status information available. Mental Status No Information Advance Directives Directive Response Recor ded Date/Time Advance Directives No 5:15pm Health Care Power of Scrap Iron Cutter No 06/23/15 9:21am Organ Donor No 06/23/15 9:21am Resuscitation Status Full Code 06/27/16 5:15pm Directive Response Recor ded Date/Time Advance Directives No 11:30am Health Care Power of Scrap Iron Cutter No 09/27/16 11:30am Organ Donor No 09/27/16 11:30am Resuscitation Status Full Code 09/27/16 11:30am Directive Response Recor ded Date/Time Advance Directives No 9:21am Health Care Power of Scrap Iron Cutter No 06/23/15 9:21am Organ Donor No 06/23/15 9:21am Directive Response Recor ded Date/Time Advance Directives No 3:20pm Health Care Power of Scrap Iron Cutter No 02/24/15 3:20pm Organ Donor No 02/24/15 3:20pm Resuscitation Status Full Code 02/24/15 3:20pm Directive Response Recor ded Date/Time Advance Directives No 2:50pm Health Care Power of Scrap Iron Cutter No 11/17/14 2:50pm Organ Donor No 11/17/14 2:50pm Directive Response Recor ded Date/Time Advance Directives No 3:20pm Health Care Power of Scrap Iron Cutter No 08/16/14 3:20pm Organ Donor No 08/16/14 3:20pm Resuscitation Status Full Code 08/16/14 3:20pm Directive Response Recor ded Date/Time Advance Directives No 2:50pm Health Care Power of Scrap Iron Cutter No 11/17/14 2:50pm Organ Donor No 11/17/14 2:50pm Resuscitation Status Full Code 11/17/14 2:50pm Directive Response Recor ded Date/Time Advance Directives No 9:02am Health Care Power of Scrap Iron Cutter No 06/03/17 9:02am Organ Donor No 06/03/17 9:02am Resuscitation Status Full Code 06/03/17 9:02am Directive Response Recor ded Date/Time Advance Directives No 2:05pm Health Care Power of Scrap Iron Cutter No 10/25/17 2:05pm Organ Donor No 10/25/17 2:05pm Resuscitation Status Full Code 10/25/17 2:05pm Directive Response Recor ded Date/Time Advance Directives No 12:37pm Health Care Power of Scrap Iron Cutter No 09/04/17 12:37pm Organ Donor No 09/04/17 12:37pm Resuscitation Status Full Code 09/04/17 12:37pm Discharge Instructions Patient Instructions Physician Instructions Prescription: Call to Patients Pharmacy Patient Instructions: See in office in one week at 1000AM Discharge Diet: Low Sodium Diet, Low Fat/Low Cholesterol Diet for 24 Hours: No Alcohol, No [employer] Driving Instructions: No Driving for 1 Week Care Plan Patient Instructions:: See in office in one week at 1000AM No hospital discharge instructions. Patient Instructions Physician Instructions Prescription: Call to Patients Pharmacy Patient Instructions: Followup two weeks as OP Resume Normal Activity: Yes Discharge Diet: Eat Small Frequent Meals Diet for 24 Hours: No Alcohol Driving Instructions: [place] Drive Patient Instructions Physician Instructions Prescription: Call to Patients Pharmacy Patient Instructions: Followkup one week as OP Discharge Diet: Regular Diet Drink 6-8 Glasses of Fluid/Day: Yes Driving Instructions: [address] Avoid ALL Tobacco Products: Smoking of Any Kind For Problems or Questions: Contact Your Physician Patient Instructions Physician Instructions Patient Instructions: Followkup in two weeks at office. Resume Normal Activity: Yes Discharge Diet: ADA Diet Diet for 24 Hours: No Alcohol Driving Instructions: No Driving for 1 Week No hospital discharge instructions. Patient Instructions Physician Instructions Prescription: Call to Patients Pharmacy Patient Instructions: Followkup one week as OP Discharge Diet: Regular Diet Drink 6-8 Glasses of Fluid/Day: Yes Driving Instructions: [address] Drive Avoid ALL Tobacco Products: Smoking of Any Kind For Problems or Questions: Contact Your Physician No hospital discharge instruction information available.No hospital discharge instruction information available.No hospital discharge instruction information available. Additional Source Comments This clinical document has been generated using [employer] software that has been certified by the Office of the National Coordinator for Health Information Technology (ONC 15.99.04.3023.Diam.[id number]) and the National Committee for Membership Correspondent (NCQA, as an eMeasure certified technology). FOR RECORDS PERTAINING TO PATIENTS WHO ARE OR HAVE BEEN ENROLLED IN A CHEMICAL D EPENDENCY/SUBSTANCE ABUSE PROGRAM, SOME INFORMATION MAY BE OMITTED. This clinica l summary was aggregated from multiple sources. Caution should be exercised in using it in the provision of clinical care. This summary normalizes information from multiple sources, and as a consequence, information in this document may ma terially change the coding, format and clinical context of patient data. In keven tion, data may be omitted in some cases. CLINICAL DECISIONS SHOULD BE BASED ON T HE PRIMARY CLINICAL RECORDS. [email or web address] provides no warranty or guara ntee of the accuracy or completeness of information in this document.The followi ng information is based on time limited clinical information
--- OUTSIDE RECORDS SUMMARY | 2020-05-09 13:57 | XMS REPORT | Continuity of Care Document ---
Author Organization Unknown Address Unknown Phone Unavailable Allergies Active Description Code Type Severity Reaction Onset Reported/Identified Relationship to Patient Clinical Status Yes morphine [id number] Drug Allergy Unknown N/A 04/18/2008 Yes Penicillins [id number] Drug Aller gy Unknown N/A 04/18/[id number] ug Allergy Unknown N/A 09/27/2016 Yes erythromycin base [id number] Drug Allergy Unknown N/A 09/27/2016 Yes morphine [id number] Drug Allergy Unknown TAKES LORTAB AT 09/27/2016 Yes Penicillins [id number] Drug Aller gy Unknown RASH, HAS HAD R 09/27/2016 Yes levofloxacin [id number] Drug Allergy Unknown N/A 09/04/2017 Yes levothyroxine [id number] Jose R g Allergy Unknown N/A 09/04/2017 Medications There is no data. Problems Date Dx Coded Attending Type Code Diagnosis Diagnosed By 05/06/2013 Ot 785.0 05/06/2013 Ot 785.1 05/06/2013 Ot 786.09 03/22/2014 DARSHAN SEGUNDO MD Ot 414. 01 03/22/2014 DARSHAN SEGUNDO MD Ot 414. 02 03/22/2014 DARSHAN SEGUNDO MD Ot 414. 2 03/22/2014 DARSHAN SEGUNDO MD Ot 427. 1 03/22/2014 DARSHAN SEGUNDO MD Ot 427. 31 03/22/2014 DARSHAN SEGUNDO MD Ot 440. 0 03/22/2014 DARSHAN SEGUNDO MD Ot 593. 9 03/22/2014 DARSHAN SEGUNDO MD Ot 780. 2 03/22/2014 DARSHAN SEGUNDO MD Ot 785. 1 03/22/2014 DARSHAN SEGUNDO MD Ot 786. 50 03/22/2014 DARSHAN SEGUNDO MD Ot V45. 81 03/22/2014 DARSHAN SEGUNDO MD Ot V58. 69 08/26/2014 SEGUNDO SHRESTHA, ERIC R Ot 038. 9 08/26/2014 SEGUNDO SHRESTHA, ERIC R Ot 244. 9 08/26/2014 SEGUNDO SHRESTHA, ERIC R Ot 250. 00 08/26/2014 SEGUNDO SHRESTHA, ERIC R Ot 276. 69 08/26/2014 SEGUNDO SHRESTHA, ERIC R Ot 276. 8 08/26/2014 SEGUNDO SHRESTHA, ERIC R Ot 278. 00 08/26/2014 SEGUNDO SHRESTHA, ERIC R Ot 311 08/26/2014 SEGUNDO SHRESTHA, ERIC R Ot 327. 23 08/26/2014 SEGUNDO SHRESTHA, ERIC R Ot 414. 00 08/26/2014 SEGUNDO SHRESTHA, ERIC R Ot 480. 9 08/26/2014 SEGUNDO SHRESTHA, ERIC R Ot 491. 21 08/26/2014 SEGUNDO SHRESTHA, ERIC R Ot 530. 81 08/26/2014 SEGUNDO SHRESTHA, ERIC R Ot 716. 90 08/26/2014 SEGUNDO SHRESTHA, ERIC R Ot 793. 11 08/26/2014 SEGUNDO SHRESTHA, ERIC R Ot 799. 02 08/26/2014 SEGUNDO SHRESTHA, ERIC R Ot 799. 3 08/26/2014 SEGUNDO SHRESTHA, ERIC R Ot 995. 91 08/26/2014 SEGUNDO SHRESTHA, ERIC R Ot V04. 81 08/26/2014 SEGUNDO SHRESTHA, ERIC R Ot V12. 09 08/26/2014 SEGUNDO SHRESTHA, ERIC R Ot V13. 01 08/26/2014 SEGUNDO SHRESTHA, ERIC R Ot V13. 02 08/26/2014 SEGUNDO SHRESTHA, ERIC R Ot V15. 82 08/26/2014 SEGUNDO SHRESTHA, ERIC R Ot V45. 81 08/26/2014 SEGUNDO SHRESTHA, ERIC R Ot V85. 32 09/10/2014 SANYA SHRESTHA, DARSHAN J Ot 244. 9 09/10/2014 SANYA SHRESTHA, DARSHAN J Ot 272. 4 09/10/2014 SANYA SHRESTHA, DARSHAN J Ot 275. 2 09/10/2014 SANYA SHRESTHA, DARSHAN J Ot 276. 8 09/10/2014 SANYA SHRESTHA, DARSHAN J Ot 401. 9 09/10/2014 SANYA SHRESTHA, DARSHAN Villas[place]or Ot 414. 01 09/10/2014 SANYA SHRESTHA, DARSHAN Villas[place] Ot 427. 1 09/10/2014 SANYA SHRESTHA, DARSHAN [place] Ot 427. 31 09/10/2014 SANYA SHRESTHA, DARSHAN [place]as[place] Ot V45. 81 09/10/2014 DARSHAN SEGUNDO MD Ot V58. 69 11/21/2014 SEGUNDO SHRESTHA, ERIC R Ot 429. 2 ASCVD 11/21/2014 SEGUNDO SHRESTHA, ERIC R Ot 466. 0 ACUTE BRONCHITIS 11/21/2014 SEGUNDO SHRESTHA, ERIC R Ot 473. 9 CHRONIC SINUSITIS NOS 11/25/2014 ERIC MARRERO DO Ot 793. 11 11/30/2014 ERIC MARRERO DO Ot 272. 4 11/30/2014 ERIC MARRERO DO Ot 278. 00 11/30/2014 ERIC MARRERO DO Ot 401. 9 11/30/2014 ERIC MARRERO DO Ot 414. 00 11/30/2014 ERIC MARRERO DO Ot 496 11/30/2014 ERIC MARRERO DO Ot 780. 09 11/30/2014 ERIC MARRERO DO Ot 786. 09 12/02/2014 Ot 401.9 12/02/2014 Ot 414.00 12/02/2014 Ot 786.09 12/02/2014 Ot 785.0 12/02/2014 Ot 785.1 12/02/2014 Ot 786.09 12/02/2014 DARSHAN SEGUNDO MD Ot 244. 9 12/02/2014 SANYA SHRESTHA, DARSHAN [place] Ot 272. 4 12/02/2014 SANYA SHRESTHA, DARSHAN [place] Ot 275. 2 12/02/2014 SANYA SHRESTHA, DARSHAN [place] Ot 276. 8 12/02/2014 SANYA SHRESTHA, DARSHAN [place]as[place]or Ot 401. 9 12/02/2014 SANYA SHRESTHA, DARSHAN Villas[place]or Ot 414. 01 12/02/2014 SANYA SHRESTHA, DARSHAN [place]as[place]or Ot 427. 1 12/02/2014 SANYA SHRESTHA, DARSHAN [place]as[place] Ot 427. 31 12/02/2014 ADRSHAN SEGUNDO MD Ot V45. 81 12/02/2014 DARSHAN SEGUNDO MD Ot V58. 69 12/02/2014 ERIC MARRERO DO Ot 793. 11 12/02/2014 ERIC MARRERO DO Ot 272. 4 12/02/2014 ERIC MARRERO DO Ot 278. 00 12/02/2014 ERIC MARRERO DO Ot 401. 9 12/02/2014 ERIC MARRERO DO Ot 414. 00 12/02/2014 ERIC MARRERO DO Ot 496 12/02/2014 ERIC MARRERO DO Ot 780. 09 12/02/2014 ERIC MARRERO DO Ot 786. 09 12/02/2014 ALMA DELIA SHRESTHA, JUANA Boo Ot 375.22 12/02/2014 JUANA FLANNERY MD Ot 473 .9 12/02/2014 ERIC MARRERO DO Ot 272. 4 12/02/2014 ERIC MARRERO DO Ot 278. 00 12/02/2014 ERIC MARRERO DO Ot 401. 9 12/02/2014 ERIC MARRERO DO Ot 414. 00 12/02/2014 ERIC MARRERO DO Ot 496 12/02/2014 ERIC MARRERO DO Ot 780. 09 12/02/2014 ERIC MARRERO DO Ot 786. 09 12/06/2014 ERIC MARRERO DO Ot 793. 11 12/07/2014 ALMA DELIA SHRESTHA, JUANA Boo Ot 375.22 12/07/2014 JUANA FLANNERY MD Ot 473 .9 12/18/2014 Ot 327.24 IDI OPATH SLEEP RELATED NON-OBSTRUC ALVEO 12/18/2014 Ot 786.09 RES PIRATORY ABNORM NEC 12/24/2014 Ot 414.00 12/24/2014 Ot 433.10 12/24/2014 Ot 518.89 12/24/2014 Ot 786.09 01/28/2015 Ot 414.00 01/28/2015 Ot 433.10 01/28/2015 Ot 518.89 01/28/2015 Ot 786.09 02/01/2015 SANYA SHRESTHA, DARSHAN [place]as[place]or Ot 272. 4 02/01/2015 SANYA SHRESTHA, DARSHAN [place] Ot 401. 9 02/01/2015 SANYA SHRESTHA, DARSHAN [place] Ot 414. 00 02/01/2015 SANYA SHRESTHA, DARSHAN Villas[place]or Ot 433. 10 02/24/2015 Ot 785.0 02/24/2015 Ot 785.1 02/24/2015 Ot 786.09 02/25/2015 SEGUNDO SHRESTHA, ERIC R Ot 244. 9 02/25/2015 SEGUNDO SHRESTHA, ERIC R Ot 298. 9 02/25/2015 SEGUNDO SHRESTHA, ERIC R Ot 311 02/25/2015 SEGUNDO SHRESTHA, ERIC R Ot 414. 01 02/25/2015 SEGUNDO SHRESTHA, ERIC R Ot 427. 31 02/25/2015 SEGUNDO SHRESTHA, ERIC R Ot 491. 21 02/25/2015 SEGUNDO SHRESTHA, ERIC R Ot 530. 81 02/25/2015 SEGUNDO SHRESTHA, ERIC R Ot 573. 3 02/25/2015 SEGUNDO SHRESTHA, ERIC R Ot 584. 9 02/25/2015 SEGUNDO SHRESTHA, ERIC R Ot 599. 0 02/25/2015 SEGUNDO SHRESTHA, ERIC R Ot 692. 9 02/25/2015 SEGUNDO SHRESTHA, ERIC R Ot 716. 90 02/25/2015 SEGUNDO SHRESTHA, ERIC R Ot 733. 00 02/25/2015 SEGUNDO SHRESTHA, ERIC R Ot 737. 30 02/25/2015 SEGUNDO SHRESTHA, ERIC R Ot 782. 3 02/25/2015 SEGUNDO SHRESTHA, ERIC R Ot 784. 59 02/25/2015 SEGUNDO SHRESTHA, ERIC R Ot V12. 54 02/25/2015 SEGUNDO SHRESTHA, ERIC R Ot V15. 82 02/25/2015 SEGUNDO SHRESTHA, ERIC R Ot V17. 3 02/25/2015 SEGUNDO SHRESTHA, ERIC R Ot V45. 81 02/25/2015 SEGUNDO SHRESTHA, ERIC R Ot V45. 89 02/25/2015 SEGUNDO SHRESTHA, ERIC R Ot V46. 2 02/25/2015 SEGUNDO SHRESTHA, ERIC R Ot 733. 90 02/25/2015 SEGUNDO SHRESTHA, ERIC R Ot 959. 7 02/25/2015 SEGUNDO SHRESTHA, ERIC R Ot E000 .8 02/25/2015 SEGUNDO SHRESTHA, ERIC R Ot E888 .9 02/25/2015 Ot 272.4 02/25/2015 Ot 401.9 02/25/2015 Ot 414.00 02/25/2015 Ot 433.10 02/25/2015 SANYA SHRESTHA, BASHAR J Ot 272. 4 02/25/2015 SANYA SHRESTHA, BASASIF J Ot 401. 9 02/25/2015 SANYA SHRESTHA, BASHAR J Ot 414. 00 02/25/2015 SANYA SHRESTHA, BASHAR J Ot 433. 10 02/26/2015 SEGUNDO SHRESTHA, ERIC R Ot 244. 9 02/26/2015 SEGUNDO SHRESTHA, ERIC R Ot 298. 9 02/26/2015 SEGUNDO SHRESTHA, ERIC R Ot 311 02/26/2015 SEGUNDO SHRESTHA, ERIC R Ot 414. 01 02/26/2015 SEGUNDO SHRESTHA, ERIC R Ot 427. 31 02/26/2015 SEGUNDO SHRESTHA, ERIC R Ot 491. 21 02/26/2015 SEGUNDO SHRESTHA, ERIC R Ot 530. 81 02/26/2015 SEGUNDO SHRESTHA, ERIC R Ot 573. 3 02/26/2015 SEGUNDO SHRESTHA, ERIC R Ot 584. 9 02/26/2015 SEGUNDO SHRESTHA, ERIC R Ot 599. 0 02/26/2015 SEGUNDO SHRESTHA, ERIC R Ot 692. 9 02/26/2015 SEGUNDO SHRESTHA, ERIC R Ot 716. 90 02/26/2015 SEGUNDO SHRESTHA, ERIC R Ot 733. 00 02/26/2015 SEGUNDO SHRESTHA, ERIC R Ot 737. 30 02/26/2015 SEGUNDO SHRESTHA, ERIC R Ot 782. 3 02/26/2015 SEGUNDO SHRESTHA, ERIC R Ot 784. 59 02/26/2015 SEGUNDO SHRESTHA, ERIC R Ot V12. 54 02/26/2015 SEGUNDO SHRESTHA, ERIC R Ot V15. 82 02/26/2015 SEGUNDO SHRESTHA, ERIC R Ot V17. 3 02/26/2015 SEGUNDO SHRESTHA, ERIC R Ot V45. 81 02/26/2015 SEGUNDO SHRESTHA, ERIC R Ot V45. 89 02/26/2015 SEGUNDO SHRESTHA, ERIC R Ot V46. 2 02/27/2015 SEGUNDO SHRESTHA, ERIC R Ot 244. 9 02/27/2015 SEGUNDO SHRESTHA, ERIC R Ot 298. 9 02/27/2015 SEGUNDO SHRESTHA, ERIC R Ot 311 02/27/2015 SEGUNDO SHRESTHA, ERIC R Ot 414. 01 02/27/2015 SEGUNDO SHRESTHA, ERIC R Ot 427. 31 02/27/2015 SEGUNDO SHRESTHA, ERIC R Ot 491. 21 02/27/2015 SEGUNDO SHRESTHA, ERIC R Ot 530. 81 02/27/2015 SEGUNDO SHRESTHA, ERIC R Ot 573. 3 02/27/2015 SEGUNDO SHRESTHA, ERIC R Ot 584. 9 02/27/2015 SEGUNDO SHRESTHA, ERIC R Ot 599. 0 02/27/2015 SEGUNDO SHRESTHA, ERIC R Ot 692. 9 02/27/2015 SEGUNDO SHRESTHA, ERIC R Ot 716. 90 02/27/2015 SEGUNDO SHRESTHA, ERIC R Ot 733. 00 02/27/2015 SEGUNDO SHRESTHA, ERIC R Ot 737. 30 02/27/2015 SEGUNDO SHRESTHA, ERIC R Ot 782. 3 02/27/2015 SEGUNDO SHRESTHA, ERIC R Ot 784. 59 02/27/2015 SEGUNDO SHRESTHA, ERIC R Ot V12. 54 02/27/2015 SEGUNDO SHRESTHA, ERIC R Ot V15. 82 02/27/2015 SEGUNDO SHRESTHA, ERIC R Ot V17. 3 02/27/2015 SEGUNDO SHRESTHA, ERIC R Ot V45. 81 02/27/2015 SEGUNDO SHRESTHA, ERIC R Ot V45. 89 02/27/2015 SEGUNDO SHRESTHA, ERIC R Ot V46. 2 02/28/2015 ERIC MARRERO DO Ot 272. 4 02/28/2015 ERIC MARRERO DO Ot 278. 00 02/28/2015 ERIC MARRERO DO M Ot 401. 9 02/28/2015 ERIC MARRERO DO Ot 414. 00 02/28/2015 ERIC MARRERO DO Ot 496 02/28/2015 ERIC MARRERO DO Ot 780. 09 02/28/2015 ERIC MARRERO DO Ot 786. 09 02/28/2015 SEGUNDO SHRESTHA, ERIC R Ot 244. 9 02/28/2015 SEGUNDO SHRESTHA, ERIC R Ot 298. 9 02/28/2015 SEGUNDO SHRESTHA, ERIC R Ot 311 02/28/2015 SEGUNDO SHRESTHA, ERIC R Ot 414. 01 02/28/2015 SEGUNDO SHRESTHA, ERIC R Ot 427. 31 02/28/2015 SEGUNDO SHRESTHA, ERIC R Ot 491. 21 02/28/2015 SEGUNDO SHRESTHA, ERIC R Ot 530. 81 02/28/2015 SEGUNDO SHRESTHA, ERIC R Ot 573. 3 02/28/2015 SEGUNDO SHRESTHA, ERIC R Ot 584. 9 02/28/2015 SEGUNDO SHRESTHA, ERIC R Ot 599. 0 02/28/2015 SEGUNDO SHRESTHA, ERIC R Ot 692. 9 02/28/2015 SEGUNDO SHRESTHA, ERIC R Ot 716. 90 02/28/2015 SEGUNDO SHRESTHA, ERIC R Ot 733. 00 02/28/2015 SEGUNDO SHRESTHA, ERIC R Ot 737. 30 02/28/2015 SEGUNDO SHRESTHA, ERIC R Ot 782. 3 02/28/2015 SEGUNDO SHRESTHA, ERIC R Ot 784. 59 02/28/2015 SEGUNDO SHRESTHA, ERIC R Ot V12. 54 02/28/2015 SEGUNDO SHRESTHA, ERIC R Ot V15. 82 02/28/2015 SEGUNDO SHRESTHA, ERIC R Ot V17. 3 02/28/2015 SEGUNDO SHRESTHA, ERIC R Ot V45. 81 02/28/2015 SEGUNDO SHRESTHA, ERIC R Ot V45. 89 02/28/2015 SEGUNDO SHRESTHA, ERIC R Ot V46. 2 03/01/2015 SEGUNDO SHRESTHA, ERIC R Ot 244. 9 03/01/2015 SEGUNDO SHRESTHA, ERIC R Ot 298. 9 03/01/2015 SEGUNDO SHRESTHA, ERIC R Ot 311 03/01/2015 SEGUNDO SHRESTHA, ERIC R Ot 414. 01 03/01/2015 SEGUNDO SHRESTHA, ERIC R Ot 427. 31 03/01/2015 SEGUNDO SHRESTHA, ERIC R Ot 491. 21 03/01/2015 SEGUNDO SHRESTHA, ERIC R Ot 530. 81 03/01/2015 SEGUNDO SHRESTHA, ERIC R Ot 573. 3 03/01/2015 SEGUNDO SHRESTHA, ERIC R Ot 584. 9 03/01/2015 SEGUNDO SHRESTHA, ERIC R Ot 599. 0 03/01/2015 SEGUNDO SHRESTHA, ERIC R Ot 692. 9 03/01/2015 SEGUNDO SHRESTHA, ERIC R Ot 716. 90 03/01/2015 SEGUNDO SHRESTHA, ERIC R Ot 733. 00 03/01/2015 SEGUNDO SHRESTHA, ERIC R Ot 737. 30 03/01/2015 SEGUNDO SHRESTHA, ERIC R Ot 782. 3 03/01/2015 SEGUNDO SHRESTHA, ERIC R Ot 784. 59 03/01/2015 SEGUNDO SHRESTHA, ERIC R Ot V12. 54 03/01/2015 SEGUNDO SHRESTHA, ERIC R Ot V15. 82 03/01/2015 SEGUNDO SHRESTHA, ERIC R Ot V17. 3 03/01/2015 SEGUNDO SHRESTHA, ERIC R Ot V45. 81 03/01/2015 SEGUNDO SHRESTHA, ERIC R Ot V45. 89 03/01/2015 SEGUNDO SHRESTHA, ERIC R Ot V46. 2 03/02/2015 SEGUNDO SHRESTHA, ERIC R Ot 244. 9 03/02/2015 SEGUNDO SHRESTHA, ERIC R Ot 298. 9 03/02/2015 SEGUNDO SHRESTHA, ERIC R Ot 311 03/02/2015 SEGUNDO SHRESTHA, ERIC R Ot 414. 01 03/02/2015 SEGUNDO SHRESTHA, ERIC R Ot 427. 31 03/02/2015 SEGUNDO SHRESTHA, ERIC R Ot 491. 21 03/02/2015 SEGUNDO SHRESTHA, ERIC R Ot 530. 81 03/02/2015 SEGUNDO SHRESTHA, ERIC R Ot 573. 3 03/02/2015 SEGUNDO SHRESTHA, ERIC R Ot 584. 9 03/02/2015 SEGUNDO SHRESTHA, ERIC R Ot 599. 0 03/02/2015 SEGUNDO SHRESTHA, ERIC R Ot 692. 9 03/02/2015 SEGUNDO SHRESTHA, ERIC R Ot 716. 90 03/02/2015 SEGUNDO SHRESTHA, ERIC R Ot 733. 00 03/02/2015 SEGUNDO SHRESTHA, ERIC R Ot 737. 30 03/02/2015 SEGUNDO SHRESTHA, ERIC R Ot 782. 3 03/02/2015 SEGUNDO SHRESTHA, ERIC R Ot 784. 59 03/02/2015 SEGUNDO SHRESTHA, ERIC R Ot V12. 54 03/02/2015 SEGUNDO SHRESTHA, ERIC R Ot V15. 82 03/02/2015 SEGUNDO SHRESTHA, ERIC R Ot V17. 3 03/02/2015 SEGUNDO SHRESTHA, ERIC R Ot V45. 81 03/02/2015 SEGUNDO SHRESTHA, ERIC R Ot V45. 89 03/02/2015 SEGUNDO SHRESTHA, ERIC R Ot V46. 2 03/02/2015 SEGUNDO SHRESTHA, ERIC R Ot 244. 9 03/02/2015 SEGUNDO SHRESTHA, ERIC R Ot 298. 9 03/02/2015 SEGUNDO SHRESTHA, ERIC R Ot 311 03/02/2015 SEGUNDO SHRESTHA, ERIC R Ot 414. 01 03/02/2015 SEGUNDO SHRESTHA, ERIC R Ot 427. 31 03/02/2015 SEGUNDO SHRESTHA, ERIC R Ot 491. 21 03/02/2015 SEGUNDO SHRESTHA, ERIC R Ot 530. 81 03/02/2015 SEGUNDO SHRESTHA, ERIC R Ot 573. 3 03/02/2015 SEGUNDO SHRESTHA, ERIC R Ot 584. 9 03/02/2015 SEGUNDO SHRESTHA, ERIC R Ot 599. 0 03/02/2015 SEGUNDO SHRESTHA, ERIC R Ot 692. 9 03/02/2015 SEGUNDO SHRESTHA, ERIC R Ot 716. 90 03/02/2015 SEGUNDO SHRESTHA, ERIC R Ot 733. 00 03/02/2015 SEGUNDO SHRESTHA, ERIC R Ot 737. 30 03/02/2015 SEGUNDO SHRESTHA, ERIC R Ot 782. 3 03/02/2015 SEGUNDO SHRESTHA, ERIC R Ot 784. 59 03/02/2015 SEGUNDO SHRESTHA, ERIC R Ot V12. 54 03/02/2015 SEGUNDO SHRESTHA, ERIC R Ot V15. 82 03/02/2015 SEGUNDO SHRESTHA, ERIC R Ot V17. 3 03/02/2015 SEGUNDO SHRESTHA, ERIC R Ot V45. 81 03/02/2015 SEGUNDO SHRESTHA, ERIC R Ot V45. 89 03/02/2015 SEGUNDO SHRESTHA, ERIC R Ot V46. 2 03/03/2015 SEGUNDO SHRESTHA, ERIC R Ot 244. 9 03/03/2015 SEGUNDO SHRESTHA, ERIC R Ot 298. 9 03/03/2015 SEGUNDO SHRESTHA, ERIC R Ot 311 03/03/2015 SEGUNDO SHRESTHA, ERIC R Ot 414. 01 03/03/2015 SEGUNDO SHRESTHA, ERIC R Ot 427. 31 03/03/2015 SEGUNDO SHRESTHA, ERIC R Ot 491. 21 03/03/2015 SEGUNDO SHRESTHA, ERIC R Ot 530. 81 03/03/2015 SEGUNDO SHRESTHA, ERIC R Ot 573. 3 03/03/2015 SEGUNDO SHRESTHA, ERIC R Ot 584. 9 03/03/2015 SEGUNDO SHRESTHA, ERIC R Ot 599. 0 03/03/2015 SEGUNDO SHRESTHA, ERIC R Ot 692. 9 03/03/2015 SEGUNDO SHRESTHA, ERIC R Ot 716. 90 03/03/2015 SEGUNDO SHRESTHA, ERIC R Ot 733. 00 03/03/2015 SEGUNDO SHRESTHA, ERIC R Ot 737. 30 03/03/2015 SEGUNDO SHRESTHA, ERIC R Ot 782. 3 03/03/2015 SEGUNDO SHRESTHA, ERIC R Ot 784. 59 03/03/2015 SEGUNDO SHRESTHA, ERIC R Ot V12. 54 03/03/2015 SEGUNDO SHRESTHA, ERIC R Ot V15. 82 03/03/2015 SEGUNDO SHRESTHA, ERIC R Ot V17. 3 03/03/2015 SEGUNDO SHRESTHA, ERIC R Ot V45. 81 03/03/2015 SEGUNDO SHRESTHA, ERIC R Ot V45. 89 03/03/2015 SEGUNDO SHRESTHA, ERIC R Ot V46. 2 03/03/2015 SEGUNDO SHRESTHA, ERIC R Ot 244. 9 03/03/2015 SEGUNDO SHRESTHA, ERIC R Ot 298. 9 03/03/2015 SEGUNOD SHRESTHA, ERIC R Ot 311 03/03/2015 SEGUNDO SHRESTHA, ERIC R Ot 414. 01 03/03/2015 SEGUNDO SHRESTHA, ERIC R Ot 427. 31 03/03/2015 SEGUNDO SHRESTHA, ERIC R Ot 491. 21 03/03/2015 SEGUNDO SHRESTHA, ERIC R Ot 530. 81 03/03/2015 SEGUNDO SHRESTHA, ERIC R Ot 573. 3 03/03/2015 SEGUNDO SHRESTHA, REIC R Ot 584. 9 03/03/2015 SEGUNDO SHRESTHA, ERIC R Ot 599. 0 03/03/2015 SEGUNDO SHRESTHA, ERIC R Ot 692. 9 03/03/2015 SEGUNDO SHRESTHA, ERIC R Ot 716. 90 03/03/2015 SEGUNDO SHRESTHA, ERIC R Ot 733. 00 03/03/2015 SEGUNDO SHRESTHA, ERIC R Ot 737. 30 03/03/2015 SEGUNDO SHRESTHA, ERIC R Ot 782. 3 03/03/2015 SEGUNDO SHRESTHA, ERIC R Ot 784. 59 03/03/2015 SEGUNDO SHRESTHA, ERIC R Ot V12. 54 03/03/2015 SEGUNDO SHRESTHA, ERIC R Ot V15. 82 03/03/2015 SEGUNDO SHRESTHA, ERIC R Ot V17. 3 03/03/2015 SEGUNDO SHRESTHA, ERIC R Ot V45. 81 03/03/2015 SEGUNDO SHRESTHA, ERIC R Ot V45. 89 03/03/2015 SEGUNDO SHRESTHA, ERIC R Ot V46. 2 03/04/2015 SEGUNDO SHRESTHA, ERIC R Ot 244. 9 03/04/2015 SEGUNDO SHRESTHA, ERIC R Ot 298. 9 03/04/2015 SEGUNDO SHRESTHA, ERIC R Ot 311 03/04/2015 SEGUNDO SHRESTHA, ERIC R Ot 414. 01 03/04/2015 SEGUNDO SHRESTHA, ERIC R Ot 427. 31 03/04/2015 SEGUNDO SHRESTHA, ERIC R Ot 491. 21 03/04/2015 SEGUNDO SHRESTHA, ERIC R Ot 530. 81 03/04/2015 SEGUNDO SHRESTHA, ERIC R Ot 573. 3 03/04/2015 SEGUNDO SHRESTHA, ERIC R Ot 584. 9 03/04/2015 SEGUNDO SHRESTHA, ERIC R Ot 599. 0 03/04/2015 SEGUNDO SHRESTHA, ERIC R Ot 692. 9 03/04/2015 SEGUNDO SHRESTHA, ERIC R Ot 716. 90 03/04/2015 SEGUNDO SHRESTHA, ERIC R Ot 733. 00 03/04/2015 SEGUNDO SHRESTHA, ERIC R Ot 737. 30 03/04/2015 SEGUNDO SHRESTHA, ERIC R Ot 782. 3 03/04/2015 SEGUNDO SHRESTHA, ERIC R Ot 784. 59 03/04/2015 SEGUNDO SHRESTHA, ERIC R Ot V12. 54 03/04/2015 SEGUNDO SHRESTHA, ERIC R Ot V15. 82 03/04/2015 SEGUNDO SHRESTHA, ERIC R Ot V17. 3 03/04/2015 SEGUNDO SHRESTHA, ERIC R Ot V45. 81 03/04/2015 SEGUNDO SHRESTHA, ERIC R Ot V45. 89 03/04/2015 SEGUNDO SHRESTHA, ERIC R Ot V46. 2 03/04/2015 SEGUNDO SHRESTHA, ERIC R Ot 244. 9 03/04/2015 SEGUNDO SHRESTHA, ERIC R Ot 298. 9 03/04/2015 SEGUNDO SHRESTHA, ERIC R Ot 311 03/04/2015 SEGUNDO SHRESTHA, ERIC R Ot 414. 01 03/04/2015 SEGUNDO SHRESTHA, ERIC R Ot 427. 31 03/04/2015 SEGUNDO SHRESTHA, ERIC R Ot 491. 21 03/04/2015 SEGUNDO SHRESTHA, ERIC R Ot 530. 81 03/04/2015 SEGUNDO SHRESTHA, ERIC R Ot 573. 3 03/04/2015 SEGUNDO SHRESTHA, ERIC R Ot 584. 9 03/04/2015 SEGUNDO SHRESTHA, ERIC R Ot 599. 0 03/04/2015 SEGUNDO SHRESTHA, ERIC R Ot 692. 9 03/04/2015 SEGUNDO SHRESTHA, ERIC R Ot 716. 90 03/04/2015 SEGUNDO SHRESTHA, ERIC R Ot 733. 00 03/04/2015 SEGUNDO SHRESTHA, ERIC R Ot 737. 30 03/04/2015 SEGUNDO SHRESTHA, ERIC R Ot 782. 3 03/04/2015 SEGUNDO SHRESTHA, ERIC R Ot 784. 59 03/04/2015 SEGUNDO SHRESTHA, ERIC R Ot V12. 09 03/04/2015 SEGUNDO SHRESTHA, ERIC R Ot V12. 54 03/04/2015 SEGUNDO SHRESTHA, ERIC R Ot V15. 82 03/04/2015 SEGUNDO SHRESTHA, ERIC R Ot V17. 3 03/04/2015 SEGUNDO SHRESTHA, ERIC R Ot V45. 81 03/04/2015 SEGUNDO SHRESTHA, ERIC R Ot V45. 89 03/04/2015 SEGUNDO SHRESTHA, ERIC R Ot V46. 2 03/26/2015 ERIC MARRERO DO Ot 272. 4 03/26/2015 ERIC MARRERO DO Ot 278. 00 03/26/2015 ERIC MARRERO DO Ot 401. 9 03/26/2015 ERIC MARRERO DO Ot 414. 00 03/26/2015 ERIC MARRERO DO Ot 496 03/26/2015 ERIC MARRERO DO Ot 780. 09 03/26/2015 ERIC MARRERO DO Ot 786. 09 03/26/2015 SEGUNDO SHRESTHA, ERIC R Ot 733. 90 03/26/2015 SEGUNDO SHRESTHA, ERIC R Ot 959. 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 9 CHRONIC OBSTRUCTIVE PULMONARY DISEASE, U 09/12/2015 ERIC MARRERO DO Ot R06. 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 4 HYPERLIPIDEMIA NEC/NOS 05/08/2016 DARSHAN SEGUNDO MD Ot 401. 9 HYPERTENSION NOS 05/08/2016 SANYA SHRESTHA, DARSHAN Villasenor Ot 414. 00 CORON ATHEROSCLER NOS TYPE VESSEL, NATIV 05/08/2016 DARSHAN SEGUNDO MD Ot 433. 10 CAROTID ARTERY OCCLUSION W O CEREBRAL IN 05/08/2016 SEGUNDO SHRESTHA, ERIC R Ot 733. 90 BONE CARTILAGE DIS NOS 05/08/2016 SEGUNDO SHRESTHA, ERIC R Ot 959. 7 LOWER LEG INJURY NOS 05/08/2016 SEGUNDO SHRESTHA, ERIC R Ot E000 .8 OTHER EXTERNAL CAUSE STATUS 05/08/2016 SEGUNDO SHRESTHA, ERIC R Ot E888 .9 FALL NOS 05/08/2016 KRISTINE SHRESTHA, GENIA Villasenor Ot 722.5 2 LUMB/LUMBOSAC DISC DEGEN 05/08/2016 KRISTINE SHRESTHA, GENIA Villasenor Ot 737.3 0 IDIOPATHIC SCOLIOSIS 05/09/2016 SCOUT GRIJALVA Ot I25.10 ATHSCL HEART DISEASE [place] CORONARY 05/09/2016 SCOUT GRIJALVA Ot E78.5 HYPERLIPIDEMIA, UNSPECIFIED 05/09/2016 SCOUT GRIJALVA Ot I10 ESSENTIAL (PRIMARY) HYPERTENSION 05/09/2016 SCOUT GRIJALVA Ot I25.10 ATHSCL HEART DISEASE OF [place] CORONARY 05/09/2016 SCOUT GRIJALVA Ot I65.23 OCCLUSION AND STENOSIS OF [place] 05/09/2016 SCOUT GRIJALVA Ot E78.5 HYPERLIPIDEMIA, UNSPECIFIED 05/09/2016 SCOUT GRIJALVA Ot I10 ESSENTIAL (PRIMARY) HYPERTENSION 05/09/2016 SCOUT GRIJALVA Ot I25.10 ATHSCL HEART DISEASE [place] CORONARY 05/09/2016 SCOUT GRIJALVA Ot I65.23 OCCLUSION AND STENOSIS OF [place] 06/07/2016 SCOUT GRIJALVA Ot E78.5 HYPERLIPIDEMIA, UNSPECIFIED 06/07/2016 SCOUT GRIJALVA Ot I10 ESSENTIAL (PRIMARY) HYPERTENSION 06/07/2016 SCOUT GRIJALVA Ot I25.10 ATHSCL HEART DISEASE OF [place] CORONARY 06/07/2016 MURILLODONALD FARLEY SCOUT Veloz Ot I65.23 OCCLUSION AND STENOSIS OF [place] 06/19/2016 MURILLO-CHANDA FARLEY SCOUT Veloz Ot E78.5 HYPERLIPIDEMIA, UNSPECIFIED 06/19/2016 MURILLO-CHANDA FARLEY SCOUT Veloz Ot I10 ESSENTIAL (PRIMARY) HYPERTENSION 06/19/2016 MURILLODONALD FARLEY SCOUT Veloz Ot I25.10 ATHSCL HEART DISEASE [place] CORONARY 06/19/2016 MURILLODONALD FARLEY SCOUT Veloz Ot I65.23 OCCLUSION AND STENOSIS OF [place] 06/19/2016 MURILLO-CHANDA FARLEY SCOUT Veloz Ot E78.5 HYPERLIPIDEMIA, UNSPECIFIED 06/19/2016 MURILLODONALD FARLEY SCOUT Veloz Ot I10 ESSENTIAL (PRIMARY) HYPERTENSION 06/19/2016 MURILLO-CHANDA FARLEY SCOUT Veloz Ot I25.10 ATHSCL HEART DISEASE [place] CORONARY 06/19/2016 MURILLO-CHANDA FARLEY SCOUT Veloz Ot I65.23 OCCLUSION AND STENOSIS OF [place] 06/26/2016 Ot 414.00 COR ON ATHEROSCLER NOS TYPE VESSEL, NATIV 06/26/2016 Ot 433.10 CAR OTID ARTERY OCCLUSION W O CEREBRAL IN 06/26/2016 Ot 518.89 OTH ER DISEASES OF LUNG, NEC 06/26/2016 Ot 786.09 RES PIRATORY ABNORM NEC 06/26/2016 SANYA SHRESTHA, DARSHAN Villasenor Ot 272. 4 HYPERLIPIDEMIA NEC/NOS 06/26/2016 DARSHAN SEGUNDO MD Ot 401. 9 HYPERTENSION NOS 06/26/2016 DARSHAN SEGUNDO MD Ot 414. 00 CORON ATHEROSCLER NOS TYPE VESSEL, NATIV 06/26/2016 DARSHAN SEGUNDO MD Ot 433. 10 CAROTID ARTERY OCCLUSION W O CEREBRAL IN 06/26/2016 SEGUNDO SHRESTHA, ERIC Jackson Ot 733. 90 BONE CARTILAGE DIS NOS 06/26/2016 ERIC RAYMOND MD Ot 959. 7 LOWER LEG INJURY NOS 06/26/2016 ERIC RAYMOND MD Ot E000 .8 OTHER EXTERNAL CAUSE STATUS 06/26/2016 ERIC RAYMOND MD Ot E888 .9 FALL NOS 06/26/2016 GENIA CARMONA MD Ot 722.5 2 LUMB/LUMBOSAC DISC DEGEN 06/26/2016 GENIA CARMONA MD Ot 737.3 0 IDIOPATHIC SCOLIOSIS 06/26/2016 MOI FARLEY SCOUT K Ot E78.5 HYPERLIPIDEMIA, UNSPECIFIED 06/26/2016 MOI FARLEY SCOUT K Ot I10 ESSENTIAL (PRIMARY) HYPERTENSION 06/26/2016 MOI FARLEY SCOUT K Ot I25.10 ATHSCL HEART DISEASE OF [place] CORONARY 06/26/2016 MOI FARLEY SCOUT Magdiel Ot I65.23 OCCLUSION AND STENOSIS OF [place] 06/26/2016 MOI FARLEY SCOUT Magdiel Ot E78.5 HYPERLIPIDEMIA, UNSPECIFIED 06/26/2016 MOI FARLEY SCOUT K Ot I10 ESSENTIAL (PRIMARY) HYPERTENSION 06/26/2016 MOI FARLEY SCOUT K Ot I25.10 ATHSCL HEART DISEASE OF [place] CORONARY 06/26/2016 MOI FARLEY SCOUT K Ot I65.23 OCCLUSION AND STENOSIS OF [place] 06/27/2016 Ot 414.00 COR ON ATHEROSCLER NOS TYPE VESSEL, NATIV 06/27/2016 Ot 433.10 CAR OTID ARTERY OCCLUSION W O CEREBRAL IN 06/27/2016 Ot 518.89 OTH ER DISEASES OF LUNG, NEC 06/27/2016 Ot 786.09 RES PIRATORY ABNORM NEC 06/27/2016 DARSHAN SEGUNDO MD Ot 272. 4 HYPERLIPIDEMIA NEC/NOS 06/27/2016 DARSHAN SEGUNDO MD Ot 401. 9 HYPERTENSION NOS 06/27/2016 DARSHAN SEGUNDO MD Ot 414. 00 CORON ATHEROSCLER NOS TYPE VESSEL, NATIV 06/27/2016 DARSHAN SEGUNDO MD Ot 433. 10 CAROTID ARTERY OCCLUSION W O CEREBRAL IN 06/27/2016 ERIC RAYMOND MD Ot 733. 90 BONE CARTILAGE DIS NOS 06/27/2016 ERIC RAYMOND MD Ot 959. 7 LOWER LEG INJURY NOS 06/27/2016 ERIC RAYMOND MD Ot E000 .8 OTHER EXTERNAL CAUSE STATUS 06/27/2016 ERIC RAYMOND MD Ot E888 .9 FALL NOS 06/27/2016 GENIA CARMONA MD Ot 722.5 2 LUMB/LUMBOSAC DISC DEGEN 06/27/2016 GENIA CARMONA MD Ot 737.3 0 IDIOPATHIC SCOLIOSIS 06/27/2016 SCOUT GRIJALVA Ot E78.5 HYPERLIPIDEMIA, UNSPECIFIED 06/27/2016 SCOUT GRIJALVA Ot I10 ESSENTIAL (PRIMARY) HYPERTENSION 06/27/2016 SCOUT GRIJALVA Ot I25.10 ATHSCL HEART DISEASE [place] CORONARY 06/27/2016 SCOUT GRIJALVA Ot I65.23 OCCLUSION AND STENOSIS OF [place] 06/27/2016 SCOUT GRIJALVA Ot E78.5 HYPERLIPIDEMIA, UNSPECIFIED 06/27/2016 SCOUT GRIJALVA Ot I10 ESSENTIAL (PRIMARY) HYPERTENSION 06/27/2016 SCOUT GRIJALVA Ot I25.10 ATHSCL HEART DISEASE [place] CORONARY 06/27/2016 SCOUT GRIJALVA Ot I65.23 OCCLUSION AND STENOSIS OF [place] 07/03/2016 ERIC RAYMOND MD R Ot B95. 2 ENTEROCOCCUS THE CAUSE OF DISEASES CL 07/03/2016 ERIC RAYMOND MD R Ot B96. 20 UNSP ESCHERICHIA COLI THE CAUSE OF DI 07/03/2016 ERIC RAYMOND MD R Ot D64. 9 ANEMIA, UNSPECIFIED 07/03/2016 ERIC RAYMOND MD R Ot E03. 9 HYPOTHYROIDISM, UNSPECIFIED 07/03/2016 ERIC RAYMOND MD R Ot E78. 5 HYPERLIPIDEMIA, UNSPECIFIED 07/03/2016 ERIC RAYMOND MD R Ot E87. 1 HYPO-OSMOLALITY AND HYPONATREMIA 07/03/2016 ERIC RAYMOND MD R Ot F32. 9 MAJOR DEPRESSIVE DISORDER, SINGLE EPISOD 07/03/2016 ERIC RAYMOND MD R Ot G47. 00 INSOMNIA, UNSPECIFIED 07/03/2016 ERIC RAYMOND MD R Ot I08. 1 RHEUMATIC DISORDERS OF BOTH MITRAL AND T 07/03/2016 ERIC RAYMOND MD R Ot I12. 9 HYPERTENSIVE CHRONIC KIDNEY DISEASE W ST 07/03/2016 ERIC RAYMOND MD R Ot I25. 10 ATHSCL HEART DISEASE OF [place] CORONARY 07/03/2016 ERIC RAYMOND MD R Ot I48. 91 UNSPECIFIED ATRIAL FIBRILLATION 07/03/2016 ERIC RAYMOND MD R Ot J44. 9 CHRONIC OBSTRUCTIVE PULMONARY DISEASE, U 07/03/2016 ERIC RAYMOND MD Ot J81. 1 CHRONIC PULMONARY EDEMA 07/03/2016 ERIC RAYMOND MD, Ot M54. 9 DORSALGIA, UNSPECIFIED 07/03/2016 ERIC RAYMOND MD Ot M81. 0 AGE-RELATED OSTEOPOROSIS W/O CURRENT PAT 07/03/2016 ERIC RAYMOND MD Ot N17. 9 ACUTE KIDNEY FAILURE, UNSPECIFIED 07/03/2016 ERIC RAYMOND MD, Ot N18. 9 CHRONIC KIDNEY DISEASE, UNSPECIFIED 07/03/2016 ERIC RAYMOND MD, Ot N39. 0 URINARY TRACT INFECTION, SITE NOT SPECIF 07/03/2016 ERIC RAYMOND MD, Ot Z86. 19 PERSONAL HISTORY OF OTHER INFECTIOUS AND 07/03/2016 ERIC RAYMOND MD, Ot Z86. 73 PRSNL HX OF TIA (TIA), AND CEREB INFRC W 07/03/2016 ERIC RAYMOND MD Ot Z87.891 PERSONAL HISTORY OF NICOTINE DEPENDENCE 07/03/2016 ERIC RAYMOND MD Ot Z95. 1 PRESENCE OF AORTOCORONARY BYPASS GRAFT 07/16/2016 SCOUT GRIJALVA Ot E78.5 HYPERLIPIDEMIA, UNSPECIFIED 07/16/2016 SCOUT GRIJALVA Ot I10 ESSENTIAL (PRIMARY) HYPERTENSION 07/16/2016 SCOUT GRIJALVA Ot I25.10 ATHSCL HEART DISEASE OF [place] CORONARY 07/16/2016 SCOUT GRIJALVA Ot I65.23 OCCLUSION AND STENOSIS OF [place] 07/25/2016 SCOUT GRIJALVA Ot E78.5 HYPERLIPIDEMIA, UNSPECIFIED 07/25/2016 SCOUT GRIJALVA Ot I10 ESSENTIAL (PRIMARY) HYPERTENSION 07/25/2016 SCOUT GRIJALVA Ot I25.10 ATHSCL HEART DISEASE OF [place] CORONARY 07/25/2016 SCOUT GRIJALVA Ot I65.23 OCCLUSION AND STENOSIS OF [place] 08/24/2016 SCOUT GRIJALVA Ot E78.5 HYPERLIPIDEMIA, UNSPECIFIED 08/24/2016 SCOUT GRIJALVA Ot I10 ESSENTIAL (PRIMARY) HYPERTENSION 08/24/2016 SCOUT GRIJALVA Ot I25.10 ATHSCL HEART DISEASE OF [place] CORONARY 08/24/2016 SCOUT GRIJALVA Ot I65.23 OCCLUSION AND STENOSIS OF [place] 08/30/2016 Ot D64.9 ANEM IA, UNSPECIFIED 08/30/2016 Ot E11.22 TYP E 2 DIABETES MELLITUS W DIABETIC PAD EXTRACTION TENDER 08/30/2016 Ot I12.9 HYPE RTENSIVE CHRONIC KIDNEY DISEASE W ST 08/30/2016 Ot J44.9 PAD EXTRACTION TENDER JANET OBSTRUCTIVE PULMONARY DISEASE, U 08/30/2016 Ot N18.3 PAD EXTRACTION TENDER JANET KIDNEY DISEASE, STAGE 3 (MODERAT 08/30/2016 Ot N39.0 URIN AMRIANA TRACT INFECTION, SITE NOT SPECIF 08/31/2016 Ot D64.9 ANEM IA, UNSPECIFIED 08/31/2016 Ot E11.22 TYP E 2 DIABETES MELLITUS W DIABETIC PAD EXTRACTION TENDER 08/31/2016 Ot I12.9 HYPE RTENSIVE CHRONIC KIDNEY DISEASE W ST 08/31/2016 Ot J44.9 PAD EXTRACTION TENDER JANET OBSTRUCTIVE PULMONARY DISEASE, U 08/31/2016 Ot N18.3 PAD EXTRACTION TENDER JANET KIDNEY DISEASE, STAGE 3 (MODERAT 08/31/2016 Ot N39.0 URIN MARIANA TRACT INFECTION, SITE NOT SPECIF 09/25/2016 Ot D64.9 ANEM IA, UNSPECIFIED 09/25/2016 Ot E11.22 TYP E 2 DIABETES MELLITUS W DIABETIC PAD EXTRACTION TENDER 09/25/2016 Ot I12.9 HYPE RTENSIVE CHRONIC KIDNEY DISEASE W ST 09/25/2016 Ot J44.9 PAD EXTRACTION TENDER JANET OBSTRUCTIVE PULMONARY DISEASE, U 09/25/2016 Ot N18.3 PAD EXTRACTION TENDER JANET KIDNEY DISEASE, STAGE 3 (MODERAT 09/25/2016 Ot N39.0 URIN MARIANA TRACT INFECTION, SITE NOT SPECIF 09/27/2016 Ot 300.00 09/27/2016 Ot 786.01 09/27/2016 Ot 786.05 09/27/2016 Ot V45.81 09/27/2016 Ot V58.69 09/27/2016 Ot 785.0 TACH YCARDIA NOS 09/27/2016 Ot 785.1 PALP ITATIONS 09/27/2016 Ot 786.09 RES PIRATORY ABNORM NEC 09/27/2016 ERIC MARRERO DO Ot 272. 4 HYPERLIPIDEMIA NEC/NOS 09/27/2016 ERIC MARRERO DO Ot 278. 00 OBESITY, NOS 09/27/2016 ERIC MARRERO DO Ot 401. 9 HYPERTENSION NOS 09/27/2016 ERIC MARRERO DO Ot 414. 00 CORON ATHEROSCLER NOS TYPE VESSEL, NATIV 09/27/2016 ERIC MARRERO DO Ot 496 CHR AIRWAY OBSTRUCT NEC 09/27/2016 ERIC MARRERO DO Ot 780. 09 OTHER ALTERATION OF CONSCIOUSNESS 09/27/2016 ELIDA DO ERIC Madsen Ot 786. 09 RESPIRATORY ABNORM NEC 09/30/2016 AYUSH SEXTON DO Ot B00.1 HERPESVIRAL VESICULAR DERMATITIS 09/30/2016 AYUSH SEXTON DO Ot D72.82 9 ELEVATED WHITE BLOOD CELL COUNT, UNSPECI 09/30/2016 [...] DO Ot I25.10 ATHSCL HEART DISEASE OF [place] CORONARY 09/30/2016 AYUSH SEXTON DO Ot I47.1 [...] Ot N18.9 CHRONIC KIDNEY DISEASE, UNSPECIFIED 09/30/2016 AYUSH SEXTON DO Ot Z23 ENCOUNTER FOR IMMUNIZATION 09/30/2016 AYUSH SEXTON DO Ot Z86.73 PRSNL HX OF TIA (TIA), AND CEREB INFRC W 09/30/2016 AYUSH SEXTON DO Ot Z87.89 1 PERSONAL HISTORY OF NICOTINE DEPENDENCE 09/30/2016 AYUSH SEXTON DO Ot Z95.1 PRESENCE OF AORTOCORONARY BYPASS GRAFT 11/05/2016 Ot D64.9 ANEM IA, UNSPECIFIED 11/05/2016 Ot E11.22 TYP E 2 DIABETES MELLITUS W DIABETIC PAD EXTRACTION TENDER 11/05/2016 Ot I12.9 HYPE RTENSIVE CHRONIC KIDNEY DISEASE W ST 11/05/2016 Ot J44.9 PAD EXTRACTION TENDER JANET OBSTRUCTIVE PULMONARY DISEASE, U 11/05/2016 Ot N18.3 PAD EXTRACTION TENDER JANET KIDNEY DISEASE, STAGE 3 (MODERAT 11/05/2016 Ot N39.0 URIN MARIANA TRACT INFECTION, SITE NOT SPECIF 06/03/2017 STEVE MELÉNDEZ MD Ot E03.9 HYPOTHYROIDISM, UNSPECIFIED 06/03/2017 STEVE MELÉNDEZ MD Ot F32.9 MAJOR DEPRESSIVE DISORDER, SINGLE EPISOD 06/03/2017 STEVE MELÉNDEZ MD Ot I25.10 ATHSCL HEART DISEASE [place] 06/03/2017 STEVE MELÉNDEZ MD Ot I48.91 [...] AND CEREB INFRC W 06/03/2017 STEVE MELÉNDEZ MD, Ot Z87.01 PERSONAL HISTORY OF PNEUMONIA (RECURRENT 06/03/2017 STEVE MELÉNDEZ MD Ot Z87.2 PERSONAL HISTORY OF DISEASES OF THE SKIN 06/03/2017 STEVE MELÉNDEZ MD, Ot Z87.442 PERSONAL HISTORY OF URINARY CALCULI 06/03/2017 STEVE MELÉNDEZ MD, Ot Z87.891 PERSONAL HISTORY OF NICOTINE DEPENDENCE 06/03/2017 STEVE MELÉNDEZ MD Ot Z90.710 ACQUIRED ABSENCE OF BOTH CERVIX AND UTER 06/03/2017 STEVE MELÉNDEZ MD Ot Z95.1 PRESENCE OF AORTOCORONARY BYPASS GRAFT 06/03/2017 STEVE MELÉNDEZ MD Ot Z96.649 PRESENCE OF UNSPECIFIED ARTIFICIAL HIP J 06/03/2017 STEVE MELÉNDEZ MD, Ot Z96.651 PRESENCE OF RIGHT ARTIFICIAL KNEE JOINT 06/05/2017 STEVE MELÉNDEZ MD Ot E03.9 HYPOTHYROIDISM, UNSPECIFIED 06/05/2017 STEVE MELÉNDEZ MD Ot F32.9 MAJOR DEPRESSIVE DISORDER, SINGLE EPISOD 06/05/2017 STEVE MELÉNDEZ MD Ot I25.10 ATHSCL HEART DISEASE OF [place] CORONARY 06/05/2017 STEVE MELÉNDEZ MD Ot I48.91 UNSPECIFIED ATRIAL FIBRILLATION 06/05/2017 STEVE MELÉNDEZ MD Ot J01.90 ACUTE SINUSITIS, UNSPECIFIED 06/05/2017 STEVE MELÉNDEZ MD Ot J40 BRONCHITIS, NOT SPECIFIED ACUTE OR CH 06/05/2017 STEVE MELÉNDEZ MD Ot J44.9 CHRONIC OBSTRUCTIVE PULMONARY DISEASE, U 06/05/2017 STEVE MELÉNDEZ MD, Ot K21.9 GASTRO-ESOPHAGEAL REFLUX DISEASE WITHOUT 06/05/2017 STEVE MELÉNDEZ MD Ot M81.0 AGE-RELATED OSTEOPOROSIS [...] UNSPECIFIED ARTIFICIAL HIP J 06/05/2017 STEVE MELÉNDEZ MD, Ot Z96.651 PRESENCE OF RIGHT ARTIFICIAL KNEE JOINT 06/26/2017 STEVE MELÉNDEZ MD, Ot E03.9 HYPOTHYROIDISM, UNSPECIFIED 06/26/2017 STEVE MELÉNDEZ MD Ot F32.9 MAJOR DEPRESSIVE DISORDER, SINGLE EPISOD 06/26/2017 STEVE MELÉNDEZ MD, Ot I25.10 ATHSCL HEART DISEASE OF [place] CORONARY 06/26/2017 STEVE MELÉNDEZ MD Ot I48.91 UNSPECIFIED ATRIAL FIBRILLATION 06/26/2017 STEVE MELÉNDEZ MD, Ot J01.90 ACUTE SINUSITIS, UNSPECIFIED 06/26/2017 STEVE MELÉNDEZ MD Ot J40 BRONCHITIS, NOT SPECIFIED ACUTE OR CH 06/26/2017 STEVE MELÉNDEZ MD, Ot J44.9 CHRONIC OBSTRUCTIVE PULMONARY DISEASE, U 06/26/2017 STEVE MELÉNDEZ MD, Ot K21.9 GASTRO-ESOPHAGEAL REFLUX DISEASE WITHOUT 06/26/2017 STEVE MELÉNDEZ MD Ot M81.0 AGE-RELATED OSTEOPOROSIS W/O CURRENT PAT 06/26/2017 STEVE MELÉNDEZ MD, Ot Z86.73 PRSNL HX OF TIA (TIA), [...] PRESENCE OF UNSPECIFIED ARTIFICIAL HIP J 06/26/2017 STEVE MELÉNDEZ MD Ot Z96.651 PRESENCE OF RIGHT ARTIFICIAL KNEE JOINT 07/28/2017 Ot 300.00 07/28/2017 Ot 786.01 07/28/2017 Ot 786.05 07/28/2017 Ot V45.81 07/28/2017 Ot V58.69 09/04/2017 HARSH SKINNER DO Ot E03.9 HYPOTHYROIDISM, UNSPECIFIED 09/04/2017 HARSH SKINNER DO Ot F32.9 MAJOR DEPRESSIVE DISORDER, SINGLE EPISOD 09/04/2017 HARSH SKINNER DO Ot I25.1 0 ATHSCL HEART DISEASE OF [place] CORONARY 09/04/2017 HARSH SKINNER DO Ot I48.9 1 UNSPECIFIED ATRIAL FIBRILLATION 09/04/2017 HARSH SKINNER DO Ot J44.9 CHRONIC OBSTRUCTIVE PULMONARY DISEASE, U 09/04/2017 HARSH SKINNER DO Ot K21.9 GASTRO-ESOPHAGEAL REFLUX DISEASE WITHOUT 09/04/2017 HARSH SKINNER DO Ot M54.2 CERVICALGIA 09/04/2017 HARSH SKINNER DO Ot M81.0 AGE-RELATED OSTEOPOROSIS W/O CURRENT PAT 09/04/2017 HARSH SKINNER DO Ot S11.83XA PUNCTURE WOUND W/O FOREIGN BODY OTH PRT 09/04/2017 HARSH SKINNER DO Ot S27.2XXA TRAUMATIC HEMOPNEUMOTHORAX, INITIAL ENCO 09/04/2017 HARSH SKINNER DO Ot W18.09XA STRIKING AGAINST OTH OBJECT W SUBSEQUENT 09/04/2017 HARSH SKINNER DO Ot Z82.4 9 FAMILY HX OF ISCHEM HEART DIS AND OTH DI 09/04/2017 HARSH SKINNER DO Ot Z86.7 3 PRSNL HX OF TIA (TIA), AND CEREB INFRC W 09/04/2017 HARSH SKINNER DO Ot Z87.1 9 PERSONAL HISTORY OF OTHER DISEASES OF TH 09/04/2017 BRODY ALANIS HARSH Madsen Ot Z87.2 PERSONAL HISTORY OF DISEASES OF THE SKIN 09/04/2017 BRODY ALANISHARSH Ot Z87.4 42 PERSONAL HISTORY OF URINARY CALCULI 09/04/2017 BRODY ALANISHARSH Ot Z87.8 91 PERSONAL HISTORY OF NICOTINE DEPENDENCE 09/04/2017 BRODY ALANISHARSH Ot Z90.7 10 ACQUIRED ABSENCE OF BOTH CERVIX AND UTER 09/04/2017 BRODY ALANISHARSH Ot Z95.1 PRESENCE OF AORTOCORONARY BYPASS GRAFT 09/04/2017 BRODY ALANISHARSH Ot Z96.6 51 PRESENCE OF RIGHT ARTIFICIAL KNEE JOINT 09/04/2017 Ot 785.0 TACH YCARDIA NOS 09/04/2017 Ot 785.1 PALP ITATIONS 09/04/2017 Ot 786.09 RES PIRATORY ABNORM NEC 09/04/2017 ERIC MARRERO DO Ot 272. 4 HYPERLIPIDEMIA NEC/NOS 09/04/2017 ERIC MARRERO DO Ot 278. 00 OBESITY, NOS 09/04/2017 ERIC MARRERO DO Ot 401. 9 HYPERTENSION NOS 09/04/2017 ERIC MARRERO DO Ot 414. 00 CORON ATHEROSCLER NOS TYPE VESSEL, NATIV 09/04/2017 ERIC MARRERO DO Ot 496 CHR AIRWAY OBSTRUCT NEC 09/04/2017 ERIC MARRERO DO Ot 780. 09 OTHER ALTERATION OF CONSCIOUSNESS 09/04/2017 ERIC MARRERO DO Ot 786. 09 RESPIRATORY ABNORM NEC 10/25/2017 ADRIAN RAHMAN Ot E03.9 HYPOTHYROIDISM, UNSPECIFIED 10/25/2017 ADRIAN RAHMAN Ot F32.9 MAJOR DEPRESSIVE DISORDER, SINGLE EPISOD 10/25/2017 ADRIAN RAHMAN Ot I25.10 ATHSCL HEART DISEASE OF [place] CORONARY 10/25/2017 ADRIAN RAHMAN Ot I48.91 UNSPECIFIED ATRIAL FIBRILLATION 10/25/2017 ADRIAN RAHMAN Ot J44.9 CHRONIC OBSTRUCTIVE PULMONARY DISEASE, U 10/25/2017 ADRIAN RAHMAN Ot K21.9 GASTRO-ESOPHAGEAL REFLUX DISEASE WITHOUT 10/25/2017 ADRIAN RAHMAN Ot M25.522 PAIN IN LEFT ELBOW 10/25/2017 ADRIAN RAHMAN Ot M81.0 AGE-RELATED OSTEOPOROSIS W/O CURRENT PAT 10/25/2017 ADRIAN RAHMAN Ot S52.022A DISP FX OF OLECRAN PRO W/O INTARTIC EXTN 10/25/2017 ADRIAN RAHMAN Ot W01.0XXA FALL SAME LEV FROM SLIP/TRIP W/O STRIKE 10/25/2017 ADRIAN RAHMAN Ot Z79.01 CHCF (CURRENT) USE OF ANTICOAGULANT 10/25/2017 ADRIAN RAHMAN Ot Z82.49 FAMILY HX OF ISCHEM HEART DIS AND OTH DI 10/25/2017 ADRIAN RAHMAN Ot Z86.73 PRSNL HX OF TIA (TIA), AND CEREB INFRC W 10/25/2017 ADRIAN RAHMAN Ot Z87.01 PERSONAL HISTORY OF PNEUMONIA (RECURRENT 10/25/2017 ADRIAN RAHMAN Ot Z87.19 PERSONAL HISTORY OF OTHER DISEASES OF TH 10/25/2017 ADRIAN RAHMAN Ot Z87.440 PERSONAL HISTORY OF URINARY (TRACT) INFE 10/25/2017 ADRIAN RAHMAN Ot Z87.891 PERSONAL HISTORY OF NICOTINE DEPENDENCE 10/25/2017 ADRIAN RAHMAN Ot Z90.710 ACQUIRED ABSENCE OF BOTH CERVIX AND UTER 10/25/2017 ADRIAN RHAMAN Ot Z96.651 PRESENCE OF RIGHT ARTIFICIAL KNEE JOINT 10/25/2017 ADRIAN RAHMAN Ot Z98.1 ARTHRODESIS STATUS 11/02/2017 ADRIAN RAHMAN Ot E03.9 HYPOTHYROIDISM, UNSPECIFIED 11/02/2017 ADRIAN RAHMAN Ot F32.9 MAJOR DEPRESSIVE DISORDER, SINGLE EPISOD 11/02/2017 ADRIAN RAHMAN Ot I25.10 ATHSCL HEART DISEASE [place] CORONARY 11/02/2017 ADRIAN RAHMAN Ot I48.91 UNSPECIFIED ATRIAL FIBRILLATION 11/02/2017 ADRIAN RAHMAN Ot J44.9 CHRONIC OBSTRUCTIVE PULMONARY DISEASE, U 11/02/2017 ADRIAN RAHMAN Ot K21.9 GASTRO-ESOPHAGEAL REFLUX DISEASE WITHOUT 11/02/2017 ADRIAN RAHMAN Ot M25.522 PAIN IN LEFT ELBOW 11/02/2017 ADRIAN RAHMAN Ot M81.0 AGE-RELATED OSTEOPOROSIS W/O CURRENT PAT 11/02/2017 ADRIAN RAHMAN Ot S52.022A DISP FX OF OLECRAN PRO W/O INTARTIC EXTN 11/02/2017 ADRIAN RAHMAN Ot W01.0XXA FALL SAME LEV FROM SLIP/TRIP W/O STRIKE 11/02/2017 ADRIAN RAHMAN Ot Z79.01 CHCF (CURRENT) USE OF ANTICOAGULANT 11/02/2017 ADRIAN RAHMAN Ot Z82.49 FAMILY HX OF ISCHEM HEART DIS AND OTH DI 11/02/2017 ADRIAN RAHMAN Ot Z86.73 PRSNL HX OF TIA (TIA), AND CEREB INFRC W 11/02/2017 ADRIAN RAHMAN Ot Z87.01 PERSONAL HISTORY OF PNEUMONIA (RECURRENT 11/02/2017 ADRIAN RAHMAN Ot Z87.19 PERSONAL HISTORY OF OTHER DISEASES OF TH 11/02/2017 ADRIAN RAHMAN Ot Z87.440 PERSONAL HISTORY OF URINARY (TRACT) INFE 11/02/2017 ADRIAN RAHMAN Ot Z87.891 PERSONAL HISTORY OF NICOTINE DEPENDENCE 11/02/2017 ADRIAN RAHMAN Ot Z90.710 ACQUIRED ABSENCE OF BOTH CERVIX AND UTER 11/02/2017 ADRIAN RAHMAN Ot Z96.651 PRESENCE OF RIGHT ARTIFICIAL KNEE JOINT 11/02/2017 ADRIAN RAHMAN Ot Z98.1 ARTHRODESIS STATUS 11/18/2017 BRONWYN ORTEGA DO Ot Z45.2 ENCOUNTER FOR ADJUSTMENT AND MANAGEMENT 11/28/2017 Ot 300.00 11/28/2017 Ot 786.01 11/28/2017 Ot 786.05 11/28/2017 Ot V45.81 11/28/2017 Ot V58.69 12/10/2017 BRONWYN ORTEGA DO, Ot Z45.2 ENCOUNTER FOR ADJUSTMENT AND MANAGEMENT 01/17/2018 ERIC RAYMOND MD Ot E03. 9 HYPOTHYROIDISM, UNSPECIFIED 01/17/2018 ERIC RAYMOND MD Ot I63. 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 29 OTHER MICROSCOPIC HEMATURIA 02/10/2018 Ot 414.00 COR ON ATHEROSCLER NOS TYPE VESSEL, NATIV 02/10/2018 Ot 433.10 CAR OTID ARTERY OCCLUSION W O CEREBRAL IN 02/10/2018 Ot 518.89 OTH ER DISEASES OF LUNG, NEC 02/10/2018 Ot 786.09 RES PIRATORY ABNORM NEC 02/10/2018 DARSHAN SEGUNDO MD Ot 272. 4 HYPERLIPIDEMIA NEC/NOS 02/10/2018 DARSHAN SEGUNDO MD Ot 401. 9 HYPERTENSION NOS 02/10/2018 DARSHAN SEGUNDO MD Ot 414. 00 CORON ATHEROSCLER NOS TYPE VESSEL, NATIV 02/10/2018 DARSHAN SEGUNDO MD Ot 433. 10 CAROTID ARTERY OCCLUSION W O CEREBRAL IN 02/10/2018 ERIC RAYMOND MD R Ot 733. 90 BONE CARTILAGE DIS NOS 02/10/2018 ERIC RAYMOND MD Ot 959. 7 LOWER LEG INJURY NOS 02/10/2018 ERIC RAYMOND MD Ot E000 .8 OTHER EXTERNAL CAUSE STATUS 02/10/2018 ERIC RAYMOND MD Ot E888 .9 FALL NOS 02/10/2018 KRISTINE SHRESTHA, GENIA Villasenor Ot 722.5 2 LUMB/LUMBOSAC DISC DEGEN 02/10/2018 KRISTINE SHRESTHA, GENIA Villasenor Ot 737.3 0 IDIOPATHIC SCOLIOSIS 02/10/2018 SCOUT GRIJALVA Ot E78.5 HYPERLIPIDEMIA, UNSPECIFIED 02/10/2018 SCOUT GRIJALVA Ot I10 ESSENTIAL (PRIMARY) HYPERTENSION 02/10/2018 SCOUT GRIJALVA Ot I25.10 ATHSCL HEART DISEASE OF [place] CORONARY 02/10/2018 SCOUT GRIJALVA Ot I65.23 OCCLUSION AND STENOSIS OF [place] 02/10/2018 SCOUT GRIJALVA Ot E78.5 HYPERLIPIDEMIA, UNSPECIFIED 02/10/2018 SCOUT GRIJALVA Ot I10 ESSENTIAL (PRIMARY) HYPERTENSION 02/10/2018 SCOUT GRIJALVA Ot I25.10 ATHSCL HEART DISEASE OF [place] CORONARY 02/10/2018 MURILLO-CHANDA PA, SCOUT K Ot I65.23 OCCLUSION AND STENOSIS OF [place] 02/10/2018 Ot D64.9 ANEM IA, UNSPECIFIED 02/10/2018 Ot E11.22 TYP E 2 DIABETES MELLITUS W DIABETIC PAD EXTRACTION TENDER 02/10/2018 Ot I12.9 HYPE RTENSIVE CHRONIC KIDNEY DISEASE W ST 02/10/2018 Ot J44.9 PAD EXTRACTION TENDER JANET OBSTRUCTIVE PULMONARY DISEASE, U 02/10/2018 Ot N18.3 PAD EXTRACTION TENDER JANET KIDNEY DISEASE, STAGE 3 (MODERAT 02/10/2018 Ot N39.0 URIN MARIANA TRACT INFECTION, SITE NOT SPECIF 02/10/2018 ORTEGA DO, BRONWYN G Ot Z45.2 ENCOUNTER FOR ADJUSTMENT AND MANAGEMENT 02/10/2018 SEGUNDO SHRESTHA, ERIC Jackson Ot R31. 29 OTHER MICROSCOPIC HEMATURIA 02/10/2018 SEGUNDO SHRESTHA, ERIC R Ot E03. 9 HYPOTHYROIDISM, UNSPECIFIED 02/10/2018 ERIC RAYMOND MD R Ot I63. 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 9 ACUTE BRONCHITIS, UNSPECIFIED 02/11/2018 ERIC RAYMOND MD R Ot E03. 9 HYPOTHYROIDISM, UNSPECIFIED 02/11/2018 ERIC RAYMOND MD R Ot I63. 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 5 HYPERLIPIDEMIA, UNSPECIFIED 02/20/2018 DARSHAN SEGUNDO MD Ot I10 ESSENTIAL (PRIMARY) HYPERTENSION 02/20/2018 DARSHAN SEGUNDO MD Ot I25. 10 ATHSCL HEART DISEASE OF [place] CORONARY 02/20/2018 DARSHAN SEGUNDO MD Ot I34. 0 NONRHEUMATIC MITRAL (VALVE) INSUFFICIENC 02/20/2018 DARSHAN SEGUNDO MD Ot I48. 0 PAROXYSMAL ATRIAL FIBRILLATION 02/27/2018 DARSHAN SEGUNDO MD Ot E78. 5 HYPERLIPIDEMIA, UNSPECIFIED 02/27/2018 DARSHAN SEGUNDO MD Ot I10 ESSENTIAL (PRIMARY) HYPERTENSION 02/27/2018 DARSHAN SEGUNDO MD Ot I25. 10 ATHSCL HEART DISEASE OF [place] CORONARY 02/27/2018 DARSHAN SEGUNDO MD Ot I48. 0 PAROXYSMAL ATRIAL FIBRILLATION 03/04/2018 SEGUNDO SHRESTHA, ERIC R Ot J20. 9 ACUTE BRONCHITIS, UNSPECIFIED 03/12/2018 DARSHAN SEGUNDO MD Ot E78. 5 HYPERLIPIDEMIA, UNSPECIFIED 03/12/2018 DARSHAN SEGUNDO MD Ot I10 ESSENTIAL (PRIMARY) HYPERTENSION 03/12/2018 DARSHAN SEGUNDO MD Ot I25. 10 ATHSCL HEART DISEASE OF [place] CORONARY 03/12/2018 DARSHAN SEGUNDO MD Ot I34. 0 NONRHEUMATIC MITRAL (VALVE) INSUFFICIENC 03/12/2018 DARSHAN SEGUNDO MD Ot I48. 0 PAROXYSMAL ATRIAL FIBRILLATION 03/18/2018 DARSHAN SEGUNDO MD Ot E78. 5 HYPERLIPIDEMIA, UNSPECIFIED 03/18/2018 DARSHAN SEGUNDO MD Ot I10 ESSENTIAL (PRIMARY) HYPERTENSION 03/18/2018 DARSHAN SEGUNDO MD Ot I25. 10 ATHSCL HEART DISEASE OF [place] CORONARY 03/18/2018 DARSHAN SEGUNDO MD Ot I48. 0 PAROXYSMAL ATRIAL FIBRILLATION 07/15/2018 JORDAN DO, BRONWYN G Ot Z45.2 ENCOUNTER FOR ADJUSTMENT AND MANAGEMENT 07/15/2018 SEGUNDO SHRESTHA, ERIC Jackson Ot R31. 29 OTHER MICROSCOPIC HEMATURIA 11/28/2018 Ot 300.00 11/28/2018 Ot 786.01 11/28/2018 Ot 786.05 11/28/2018 Ot V45.81 11/28/2018 Ot V58.69 05/28/2019 Ot 300.00 05/28/2019 Ot 786.01 05/28/2019 Ot 786.05 05/28/2019 Ot V45.81 05/28/2019 Ot V58.69 08/27/2019 Ot 414.00 COR ON ATHEROSCLER NOS TYPE VESSEL, NATIV 08/27/2019 Ot 433.10 CAR OTID ARTERY OCCLUSION W O CEREBRAL IN 08/27/2019 Ot 518.89 OT ER DISEASES OF LUNG, NEC 08/27/2019 Ot 786.09 RES PIRATORY ABNORM NEC 08/27/2019 DARSHAN SEGUNDO MD Ot 272. 4 HYPERLIPIDEMIA NEC/NOS 08/27/2019 DARSHAN SEGUNDO MD Ot 401. 9 HYPERTENSION NOS 08/27/2019 DARSHAN SEGUNDO MD Ot 414. 00 CORON ATHEROSCLER NOS TYPE VESSEL, NATIV 08/27/2019 SANYA SHRESTHA, DARSHAN Villasenor Ot 433. 10 CAROTID ARTERY OCCLUSION W O CEREBRAL IN 08/27/2019 SEGUNDO SHRESTHA, ERIC Jackson Ot 733. 90 BONE CARTILAGE DIS NOS 08/27/2019 SEGUNDO SHRESTHA, ERIC Jackson Ot 959. 7 LOWER LEG INJURY NOS 08/27/2019 SEGUNDO SHRESTHA, ERIC Jackson Ot E000 .8 OTHER EXTERNAL CAUSE STATUS 08/27/2019 ERIC RAYMOND MD Ot E888 .9 FALL NOS 08/27/2019 KRISTINE SHRESTHA, GENIA Villasenor Ot 722.5 2 LUMB/LUMBOSAC DISC DEGEN 08/27/2019 GENIA CARMONA MD Ot 737.3 0 IDIOPATHIC SCOLIOSIS 08/27/2019 SCOUT GRIJALVA Ot E78.5 HYPERLIPIDEMIA, UNSPECIFIED 08/27/2019 SCOUT GRIJALVA Ot I10 ESSENTIAL (PRIMARY) HYPERTENSION 08/27/2019 SCOUT GRIJALVA Ot I25.10 ATHSCL HEART DISEASE [place] CORONARY 08/27/2019 SCOUT GRIJALVA Ot I65.23 OCCLUSION AND STENOSIS OF [place]ILATERAL [place] 08/27/2019 SCOUT GRIJALVA Ot E78.5 HYPERLIPIDEMIA, UNSPECIFIED 08/27/2019 SCOUT GRIJALVA Ot I10 ESSENTIAL (PRIMARY) HYPERTENSION 08/27/2019 SCOUT GRIJALVA Ot I25.10 ATHSCL HEART DISEASE [place] CORONARY 08/27/2019 SCOUT GRIJALVA Ot I65.23 OCCLUSION AND STENOSIS OF [place] 08/27/2019 Ot D64.9 ANEM IA, UNSPECIFIED 08/27/2019 Ot E11.22 TYP E 2 DIABETES MELLITUS W DIABETIC PAD EXTRACTION TENDER 08/27/2019 Ot I12.9 HYPE RTENSIVE CHRONIC KIDNEY DISEASE W ST 08/27/2019 Ot J44.9 PAD EXTRACTION TENDER JANET OBSTRUCTIVE PULMONARY DISEASE, U 08/27/2019 Ot N18.3 PAD EXTRACTION TENDER JANET KIDNEY DISEASE, STAGE 3 (MODERAT 08/27/2019 Ot N39.0 URIN MARIANA TRACT INFECTION, SITE NOT SPECIF 08/27/2019 BRONWYN ORTEGA DO Ot Z45.2 ENCOUNTER FOR ADJUSTMENT AND MANAGEMENT 08/27/2019 SEGUNDO SHRESTHA, ERIC R Ot R31. 29 OTHER MICROSCOPIC HEMATURIA 08/27/2019 SEGUNDO SHRESTHA, ERIC R Ot E03. 9 HYPOTHYROIDISM, UNSPECIFIED 08/27/2019 ERIC RAYMOND MD R Ot I63. 9 CEREBRAL INFARCTION, UNSPECIFIED 08/27/2019 ERIC RAYMOND MD R Ot I67. 82 CEREBRAL ISCHEMIA 08/27/2019 ERIC RAYMOND MD R Ot J20. 9 ACUTE BRONCHITIS, UNSPECIFIED 08/27/2019 DARSHAN SEGUNDO MD Ot E78. 5 HYPERLIPIDEMIA, UNSPECIFIED 08/27/2019 DARSHAN SEGUNDO MD Ot I10 ESSENTIAL (PRIMARY) HYPERTENSION 08/27/2019 DARSHAN SEGUNDO MD Ot I25. 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 0 NONRHEUMATIC MITRAL (VALVE) INSUFFICIENC 08/27/2019 DARSHAN SEGUNDO MD Ot I48. 0 PAROXYSMAL ATRIAL FIBRILLATION 08/27/2019 DARSHAN SEGUNDO MD Ot E78. 5 HYPERLIPIDEMIA, UNSPECIFIED 08/27/2019 DARSHAN SEGUNDO MD Ot I10 ESSENTIAL (PRIMARY) HYPERTENSION 08/27/2019 DARSHAN SEGUNDO MD Ot I25. 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 0 PAROXYSMAL ATRIAL FIBRILLATION 09/17/2019 AMAN ZAMARRPIA Ot R07.81 PLEURODYNIA 09/17/2019 AMAN ZAMARRIPA Ot S52.021A DISP FX OF [place] PRO W/O INTARTIC EXTN 09/17/2019 AMAN ZAMARRIPA Ot W19.XXXA UNSPECIFIED FALL, INITIAL ENCOUNTER 09/17/2019 AMAN ZAMARRIPA Ot Z95.5 PRESENCE OF CORONARY ANGIOPLASTY IMPLANT 09/17/2019 AMAN ZAMARRIPA Ot Z98.890 OTHER SPECIFIED POSTPROCEDURAL STATES 02/26/2020 Ot 300.00 02/26/2020 Ot 786.01 02/26/2020 Ot 786.05 02/26/2020 Ot V45.81 02/26/2020 Ot V58.69 Procedures There is no data. Results Test Result Range Complete urinalysis with reflex to cultu re - 06/27/16 19:48 Urine color determination YELLOW NRG Urine clarity determination CLEAR NR G Urine pH measurement by test strip 5 5-9 Specific gravity of urine by test strip 1.015 1.016-1.022 Urine protein assay by test strip, semi-quantitative NEGATIVE NEGATIVE Urine glucose detection by automated test strip NE GATIVE NEGATIVE Erythrocytes detection in urine sediment by light micr oscopy 5+ NEGATIVE Urine ketones detection by automated test strip NE GATIVE NEGATIVE Urine nitrite detection by test strip NEGATIVE NEGATIVE Urine total bilirubin detection by test strip NEGA TIVE NEGATIVE Urine urobilinogen measurement by automated test strip (mass/volume) NORMAL NORMAL Urine leukocyte esterase detection by dipstick 1+ NEGATIVE Automated urine sediment erythrocyte cou nt by microscopy (number/high power field) [HPF] NRG Automated urine sediment leukocyte count by microscopy (number/high power field) [HPF] NRG Bacteria detection in urine sediment by light microsco py FEW NRG Squamous epithelial cells detection in u rine sediment by light microscopy 0-2 NRG Crystals detection in urine sediment by light microsco py NONE NRG Casts detection in urine sediment by light microscopy PRESENT NRG Mucus detection in urine sediment by light microscopy NEGATIVE NRG Complete urinalysis with reflex to culture YES NRG Granular casts detection in urine sediment by light mi croscopy 10-25 NRG Bacterial urine culture - 06/27/16 19:48 Bacterial urine culture [id number] NRG COLONY COUNT <10,000 NRG FTX;REPORTABLE SEE COMMENTS NRG URINE CULTURE RESULTS <10,000/ML NRG Complete blood count (CBC) with automate d white blood cell (WBC) differential - 06/28/16 05:18 Blood leukocytes automated count (number/volume) 5.4 10*3/uL 4.3-11.0 Blood erythrocytes automated count (number/volume) 3.38 10*6/uL 4.35-5.85 Venous blood hemoglobin measurement (mass/volume) 8.9 g/dL 11.5-16.0 Blood hematocrit (volume fraction) 28 % 35-52 Automated erythrocyte mean corpuscular volume 83 [ foz_us] 80-99 Automated erythrocyte mean corpuscular h emoglobin (mass per erythrocyte) 26 pg 25-34 Automated erythrocyte mean corpuscular h emoglobin concentration measurement (mass/volume) 32 g/dL 32-36 Automated erythrocyte distribution width ratio 17. 0 % 10.0- 14.5 Automated blood platelet count (count/volume) 174 10*3/uL [...] 10*3 1.0-4.0 Blood monocytes automated count (number/volume) 0. 8 10*3 0.0-1.0 Automated eosinophil count 0.2 10*3/uL 0 .0-0.3 Automated blood basophil count (count/volume) 0.0 10*3/uL 0.0-0.1 Comprehensive metabolic panel - 06/28/16 05:18 Serum or plasma sodium measurement (moles/volume) 133 mmol/L 135-145 Serum or plasma potassium measurement (moles/volume) 5.7 mmol/L 3.6-5.0 Serum or plasma chloride measurement (moles/volume) 104 mmol/L 98-107 Carbon dioxide 19 mmol/L 21-32 Serum or plasma anion gap determination (moles/volume) 10 mmol/L 5-14 Serum or plasma urea nitrogen measurement (mass/volume ) 49 mg/dL 7-18 Serum or plasma creatinine measurement (mass/volume) 3.09 mg/dL 0.60-1.30 Serum or plasma urea nitrogen/creatinine mass ratio 16 NRG Serum or plasma creatinine measurement w ith calculation of estimated glomerular filtration rate 15 NRG Serum or plasma glucose measurement (mass/volume) 83 mg/dL 70-105 Serum or plasma calcium measurement (mass/volume) 8.6 mg/dL 8.5-10.1 Serum or plasma total bilirubin measurement (mass/volu me) 0.4 mg/dL 0.1-1.0 Serum or plasma alkaline phosphatase anselmo surement (enzymatic activity/volume) 107 U/L 40-136 Serum or plasma aspartate aminotransfera se measurement (enzymatic activity/volume) 35 U/L 5-34 Serum or plasma alanine aminotransferase measurement (enzymatic activity/volume) 18 U/L 0-55 Serum or plasma protein measurement (mass/volume) 6.2 g/dL 6.4-8.2 Serum or plasma albumin measurement (mass/volume) 3.7 g/dL 3.2-4.5 Whole blood basic metabolic panel - 11/12 12:56 Serum or plasma sodium measurement (moles/volume) 136 mmol/L 135-145 Serum or plasma potassium measurement (moles/volume) 5.1 mmol/L 3.6-5.0 Serum or plasma chloride measurement (moles/volume) 105 mmol/L 98-107 Carbon dioxide 22 mmol/L 21-32 Serum or plasma anion gap determination (moles/volume) 9 mmol/L 5-14 Serum or plasma urea nitrogen measurement (mass/volume ) 42 mg/dL 7-18 Serum or plasma creatinine measurement (mass/volume) 2.47 mg/dL 0.60-1.30 Serum or plasma urea nitrogen/creatinine mass ratio 17 NRG Serum or plasma creatinine measurement w ith calculation of estimated glomerular filtration rate 19 NRG Serum or plasma glucose measurement (mass/volume) 97 mg/dL 70-105 Serum or plasma calcium measurement (mass/volume) 8.7 mg/dL 8.5-10.1 Serum or plasma phosphate measurement (m ass/volume) - 06/28/16 12:56 Serum or plasma phosphate measurement (mass/volume) 3.6 mg/dL 2.3-4.7 Magnesium - 06/28/16 12:56 Magnesium 2.5 mg/dL 1.8-2.4 Automated blood complete blood count (he mogram) panel - 06/29/16 05:24 Blood leukocytes automated count (number/volume) 4.5 10*3/uL 4.3-11.0 Blood erythrocytes automated count (number/volume) 3.37 10*6/uL 4.35-5.85 Venous blood hemoglobin measurement (mass/volume) 8.9 g/dL 11.5-16.0 Blood hematocrit (volume fraction) 28 % 35-52 Automated erythrocyte mean corpuscular volume 84 [ foz_us] 80-99 Automated erythrocyte mean corpuscular h emoglobin (mass per erythrocyte) 26 pg 25-34 Automated erythrocyte mean corpuscular h emoglobin concentration measurement (mass/volume) 32 g/dL 32-36 Automated erythrocyte distribution width ratio 17. 2 % 10.0- 14.5 Automated blood platelet count (count/volume) 167 10*3/uL [...] 5-14 Serum or plasma urea nitrogen measurement (mass/volume ) 32 mg/dL 7-18 Serum or plasma creatinine measurement (mass/volume) 1.98 mg/dL 0.60-1.30 Serum or plasma urea nitrogen/creatinine mass ratio 16 NRG Serum or plasma creatinine measurement w ith calculation of estimated glomerular filtration rate 25 NRG Serum or plasma glucose measurement (mass/volume) 99 mg/dL 70-105 Serum or plasma calcium measurement (mass/volume) 8.9 mg/dL 8.5-10.1 Serum or plasma total bilirubin measurement (mass/volu me) 0.5 mg/dL 0.1-1.0 Serum or plasma alkaline phosphatase anselmo surement (enzymatic activity/volume) 117 U/L 40-136 Serum or plasma aspartate aminotransfera se measurement (enzymatic activity/volume) 36 U/L 5-34 Serum or plasma alanine aminotransferase measurement (enzymatic activity/volume) 19 U/L 0-55 Serum or plasma protein measurement (mass/volume) 6.3 g/dL 6.4-8.2 Serum or plasma albumin measurement (mass/volume) 3.8 g/dL 3.2-4.5 Magnesium - 06/29/16 05:24 Magnesium 2.3 mg/dL 1.8-2.4 Lipid 1996 panel - 06/29/16 05:24 Serum or plasma triglyceride measurement (mass/volume) 85 mg/dL <150 Serum or plasma cholesterol measurement (mass/volume) 133 mg/dL < 200 Serum or plasma cholesterol in HDL measurement (mass/v olume) 55 mg/dL 40-60 Cholesterol in LDL [mass/volume] in serum or plasma by direct assay 57 mg/dL 1-129 Serum or plasma cholesterol in VLDL measurement (mass/ volume) 17 mg/dL 5-40 Serum or plasma lithium measurement (mol es/volume) - 06/29/16 05:24 BNP level 437.4 pg/mL <100.0 RED CELLS LEUKO REDUCED AS1 - 06/29/16 0 7:51 RED CELLS LEUKO REDUCED AS1 T RANSFUSED 06/29/16 1031 NRG Blood type T Indirect antibody screen pa moni - 06/29/16 07:51 ABO+Rh group OP NRG Transfusion band number [id number] NRG Blood group antibody screen NEGATIVE NR G Complete blood count (CBC) with automate d white blood cell (WBC) differential - 06/30/16 04:44 Blood leukocytes automated count (number/volume) 5.7 10*3/uL 4.3-11.0 Blood erythrocytes automated count (number/volume) 3.80 10*6/uL 4.35-5.85 Venous blood hemoglobin measurement (mass/volume) 10.1 g/dL 11.5-16.0 Blood hematocrit (volume fraction) 32 % 35-52 Automated erythrocyte mean corpuscular volume 84 [ foz_us] 80-99 Automated erythrocyte mean corpuscular h emoglobin (mass per erythrocyte) 27 pg 25-34 Automated erythrocyte mean corpuscular h emoglobin concentration measurement (mass/volume) 32 g/dL 32-36 Automated erythrocyte distribution width ratio 17. 4 % 10.0- 14.5 Automated blood platelet count (count/volume) 189 10*3/uL [...] 10*3 1.0-4.0 Blood monocytes automated count (number/volume) 0. 9 10*3 0.0-1.0 Automated eosinophil count 0.4 10*3/uL 0 .0-0.3 Automated blood basophil count (count/volume) 0.0 10*3/uL 0.0-0.1 Comprehensive metabolic panel - 06/30/16 04:44 Serum or plasma sodium measurement (moles/volume) 136 mmol/L 135-145 Serum or plasma potassium measurement (moles/volume) 5.0 mmol/L 3.6-5.0 Serum or plasma chloride measurement (moles/volume) 107 mmol/L 98-107 Carbon dioxide 18 mmol/L 21-32 Serum or plasma anion gap determination (moles/volume) 11 mmol/L 5-14 Serum or plasma urea nitrogen measurement (mass/volume ) 25 mg/dL 7-18 Serum or plasma creatinine measurement (mass/volume) 1.81 mg/dL 0.60-1.30 Serum or plasma urea nitrogen/creatinine mass ratio 14 NRG Serum or plasma creatinine measurement w ith calculation of estimated glomerular filtration rate 28 NRG Serum or plasma glucose measurement (mass/volume) 80 mg/dL 70-105 Serum or plasma calcium measurement (mass/volume) 9.3 mg/dL 8.5-10.1 Serum or plasma total bilirubin measurement (mass/volu me) 0.9 mg/dL 0.1-1.0 Serum or plasma alkaline phosphatase anselmo surement (enzymatic activity/volume) 119 U/L 40-136 Serum or plasma aspartate aminotransfera se measurement (enzymatic activity/volume) 39 U/L 5-34 Serum or plasma alanine aminotransferase measurement (enzymatic activity/volume) 22 U/L 0-55 Serum or plasma protein [...] 5-14 Serum or plasma urea nitrogen measurement (mass/volume ) 36 mg/dL 7-18 Serum or plasma creatinine measurement (mass/volume) 1.94 mg/dL 0.60-1.30 Serum or plasma urea nitrogen/creatinine mass ratio 19 NRG Serum or plasma creatinine measurement w ith calculation of estimated glomerular filtration rate 26 NRG Serum or plasma glucose measurement (mass/volume) 142 mg/dL 70-105 Serum or plasma calcium measurement (mass/volume) 9.0 mg/dL 8.5-10.1 Serum or plasma total bilirubin measurement (mass/volu me) 0.4 mg/dL 0.1-1.0 Serum or plasma alkaline phosphatase anselmo surement (enzymatic activity/volume) 103 U/L 40-136 Serum or plasma aspartate aminotransfera se measurement (enzymatic activity/volume) 34 U/L 5-34 Serum or plasma alanine aminotransferase measurement (enzymatic activity/volume) 21 U/L 0-55 Serum or plasma protein measurement (mass/volume) 6.1 g/dL 6.4-8.2 Serum or plasma albumin measurement (mass/volume) 3.6 g/dL 3.2-4.5 Automated blood complete blood count (Sportomaniar[facility]) panel - 07/01/16 05:34 Blood leukocytes automated count (number/volume) 3.2 10*3/uL 4.3-11.0 Blood erythrocytes automated count (number/volume) 3.32 10*6/uL 4.35-5.85 Venous blood hemoglobin measurement (mass/volume) 8.9 g/dL 11.5-16.0 Blood hematocrit (volume fraction) 28 % 35-52 Automated erythrocyte mean corpuscular volume 85 [ foz_us] 80-99 Automated erythrocyte mean corpuscular h emoglobin (mass per erythrocyte) 27 pg 25-34 Automated erythrocyte mean corpuscular h emoglobin concentration measurement (mass/volume) 32 g/dL 32-36 Automated erythrocyte distribution width ratio 17. 0 % 10.0- 14.5 Automated blood platelet count (count/volume) 153 10*3/uL 130-400 Automated blood platelet mean volume measurement 9.7 [foz_us] 7.4-10.4 Automated blood complete blood count ( Imnishram) panel - 07/02/16 05:25 Blood leukocytes automated count (number/volume) 9.4 10*3/uL 4.3-11.0 Blood erythrocytes automated count (number/volume) 3.69 10*6/uL 4.35-5.85 Venous blood hemoglobin measurement (mass/volume) 9.8 g/dL 11.5-16.0 Blood hematocrit (volume fraction) 32 % 35-52 Automated erythrocyte mean corpuscular volume 86 [ foz_us] 80-99 Automated erythrocyte mean corpuscular h emoglobin (mass per erythrocyte) 27 pg 25-34 Automated erythrocyte mean corpuscular h emoglobin concentration measurement (mass/volume) 31 g/dL 32-36 Automated erythrocyte distribution width ratio 17. 7 % 10.0- 14.5 Automated blood platelet count (count/volume) 191 10*3/uL 130-400 Automated blood platelet mean volume measurement 9.8 [foz_us] 7.4-10.4 Whole blood basic metabolic panel - 03/12 05:25 Serum or plasma sodium measurement (moles/volume) 140 mmol/L 135-145 Serum or plasma potassium measurement (moles/volume) 4.4 mmol/L 3.6-5.0 Serum or plasma chloride measurement (moles/volume) 108 mmol/L 98-107 Carbon dioxide 19 mmol/L 21-32 Serum or plasma anion gap determination (moles/volume) 13 mmol/L 5-14 Serum or plasma urea nitrogen measurement (mass/volume ) 35 mg/dL 7-18 Serum or plasma creatinine measurement (mass/volume) 1.64 mg/dL 0.60-1.30 Serum or plasma urea nitrogen/creatinine mass ratio 21 NRG Serum or plasma creatinine measurement w ith calculation of estimated glomerular filtration rate 31 NRG Serum or plasma glucose measurement (mass/volume) 120 mg/dL 70-105 Serum or plasma calcium measurement (mass/volume) 9.2 mg/dL 8.5-10.1 Complete blood count (CBC) with automate d white blood cell (WBC) differential - 09/27/16 11:36 Blood leukocytes automated count (number/volume) 17.5 10*3/uL 4.3-11.0 Blood erythrocytes automated count (number/volume) 4.41 10*6/uL 4.35-5.85 Venous blood hemoglobin measurement (mass/volume) 12.7 g/dL 11.5-16.0 Blood hematocrit (volume fraction) 39 % 35-52 Automated erythrocyte mean corpuscular volume 87 [ foz_us] 80-99 Automated erythrocyte mean corpuscular h emoglobin (mass per erythrocyte) 29 pg 25-34 Automated erythrocyte mean corpuscular h emoglobin concentration measurement (mass/volume) 33 g/dL 32-36 Automated erythrocyte distribution width ratio 14. 9 % 10.0- 14.5 Automated blood platelet count (count/volume) 178 10*3/uL [...] 10*3 1.0-4.0 Blood monocytes automated count (number/volume) 1. 5 10*3 0.0-1.0 Automated eosinophil count 0.1 10*3/uL 0 .0-0.3 Automated blood basophil count (count/volume) 0.0 10*3/uL 0.0-0.1 Blood lactic acid measurement (moles/vol ume) - 09/27/16 11:36 Blood lactic acid measurement (moles/volume) 0.9 m mol/L 0.5- 2.0 Comprehensive metabolic panel - 09/27/16 11:36 Serum or plasma sodium measurement (moles/volume) 131 mmol/L 135-145 Serum or plasma potassium measurement (moles/volume) 4.1 mmol/L 3.6-5.0 Serum or plasma chloride measurement (moles/volume) 101 mmol/L 98-107 Carbon dioxide 21 mmol/L 21-32 Serum or plasma anion gap determination (moles/volume) 9 mmol/L 5-14 Serum or plasma urea nitrogen measurement (mass/volume ) 17 mg/dL 7-18 Serum or plasma creatinine measurement (mass/volume) 1.25 mg/dL 0.60-1.30 Serum or plasma urea nitrogen/creatinine mass ratio 14 NRG Serum or plasma creatinine measurement w ith calculation of estimated glomerular filtration rate 42 NRG Serum or plasma glucose measurement (mass/volume) 94 mg/dL 70-105 Serum or plasma calcium measurement (mass/volume) 9.1 mg/dL 8.5-10.1 Serum or plasma total bilirubin measurement (mass/volu me) 0.9 mg/dL 0.1-1.0 Serum or plasma alkaline phosphatase anselmo surement (enzymatic activity/volume) 121 U/L 40-136 Serum or plasma aspartate aminotransfera se measurement (enzymatic activity/volume) 18 U/L 5-34 Serum or plasma alanine aminotransferase measurement (enzymatic activity/volume) 9 U/L 0-55 Serum or plasma protein measurement (mass/volume) 7.1 g/dL 6.4-8.2 Serum or plasma albumin measurement (mass/volume) 3.8 g/dL 3.2-4.5 Blood manual differential performed dete ction - 09/27/16 11:36 Blood monocytes/100 leukocytes 9 % NRG Manual blood segmented neutrophils/100 leukocytes 85 % NRG Blood band neutrophils/100 leukocytes 0 % NRG Manual blood lymphocytes/100 leukocytes 4 % NRG Manual eosinophils/100 leukocytes in nose 1 % NRG Manual blood basophils/100 leukocytes 1 % NRG Blood erythrocyte morphology finding identification NORMAL NRG Bacterial blood culture - 09/27/16 11:36 Bacterial blood culture NG NRG Bacterial blood culture - 09/27/16 11:46 Bacterial blood culture NG NR Influenza virus A and B antigen detectio n - 09/27/16 13:50 FLU RESULT NEGATIVE FOR INFLUENZA A AND B ANTIGENS BY [facility] Complete blood count (CBC) with automate d white blood cell (WBC) differential - 09/28/16 05:35 Blood leukocytes automated count (number/volume) 14.3 10*3/uL 4.3-11.0 Blood erythrocytes automated count (number/volume) 3.64 10*6/uL 4.35-5.85 Venous blood hemoglobin measurement (mass/volume) 10.5 g/dL 11.5-16.0 Blood hematocrit (volume fraction) 32 % 35-52 Automated erythrocyte mean corpuscular volume 88 [ foz_us] 80-99 Automated erythrocyte mean corpuscular h emoglobin (mass per erythrocyte) 29 pg 25-34 Automated erythrocyte mean corpuscular h emoglobin concentration measurement (mass/volume) 33 g/dL 32-36 Automated erythrocyte distribution width ratio 14. 9 % 10.0- 14.5 Automated blood platelet count (count/volume) 161 10*3/uL [...] 10*3 1.0-4.0 Blood monocytes automated count (number/volume) 1. 3 10*3 0.0-1.0 Automated eosinophil count 0.1 10*3/uL 0 .0-0.3 Automated blood basophil count (count/volume) 0.0 10*3/uL 0.0-0.1 Comprehensive metabolic panel - 09/28/16 05:35 Serum or plasma sodium measurement (moles/volume) 135 mmol/L 135-145 Serum or plasma potassium measurement (moles/volume) 4.1 mmol/L 3.6-5.0 Serum or plasma chloride measurement (moles/volume) 107 mmol/L 98-107 Carbon dioxide 22 mmol/L 21-32 Serum or plasma anion gap determination (moles/volume) 6 mmol/L 5-14 Serum or plasma urea nitrogen measurement (mass/volume ) 19 mg/dL 7-18 Serum or plasma creatinine measurement (mass/volume) 1.17 mg/dL 0.60-1.30 Serum or plasma urea nitrogen/creatinine mass ratio 16 NRG Serum or plasma creatinine measurement w ith calculation of estimated glomerular filtration rate 46 NRG Serum or plasma glucose measurement (mass/volume) 105 mg/dL 70-105 Serum or plasma calcium measurement (mass/volume) 8.7 mg/dL 8.5-10.1 Serum or plasma total bilirubin measurement (mass/volu me) 0.4 mg/dL 0.1-1.0 Serum or plasma alkaline phosphatase anselmo surement (enzymatic activity/volume) 122 U/L 40-136 Serum or plasma aspartate aminotransfera se measurement (enzymatic activity/volume) 14 U/L 5-34 Serum or plasma alanine aminotransferase measurement (enzymatic activity/volume) 10 U/L 0-55 Serum or plasma protein measurement (mass/volume) 5.9 g/dL 6.4-8.2 Serum or plasma albumin measurement (mass/volume) 3.2 g/dL 3.2-4.5 THYROID STIMULATING HORMONE - 09/28/16 0 5:35 THYROID STIMULATING HORMONE 1.94 u[iU]/mL 0.35-4.94 Sputum Gram stain - 09/28/16 09:25 Bacterial sputum culture - 09/28/16 09:2 5 Bacterial sputum culture NORMAL [facility] Complete blood count (CBC) with automate d white blood cell (WBC) differential - 09/29/16 06:31 Blood leukocytes automated count (number/volume) 6.6 10*3/uL 4.3-11.0 Blood erythrocytes automated count (number/volume) 3.34 10*6/uL 4.35-5.85 Venous blood hemoglobin measurement (mass/volume) 9.5 g/dL 11.5-16.0 Blood hematocrit (volume fraction) 30 % 35-52 Automated erythrocyte mean corpuscular volume 89 [ foz_us] 80-99 Automated erythrocyte mean corpuscular h emoglobin (mass per erythrocyte) 28 pg 25-34 Automated erythrocyte mean corpuscular h emoglobin concentration measurement (mass/volume) 32 g/dL 32-36 Automated erythrocyte distribution width ratio 15. 1 % 10.0- 14.5 Automated blood platelet count (count/volume) 153 10*3/uL [...] 10*3 1.0-4.0 Blood monocytes automated count (number/volume) 0. 6 10*3 0.0-1.0 Automated eosinophil count 0.3 10*3/uL 0 .0-0.3 Automated blood basophil count (count/volume) 0.0 10*3/uL 0.0-0.1 Comprehensive metabolic panel - 09/29/16 06:31 Serum or plasma sodium measurement (moles/volume) 137 mmol/L 135-145 Serum or plasma potassium measurement (moles/volume) 4.0 mmol/L 3.6-5.0 Serum or plasma chloride measurement (moles/volume) 111 mmol/L 98-107 Carbon dioxide 19 mmol/L 21-32 Serum or plasma anion gap determination (moles/volume) 7 mmol/L 5-14 Serum or plasma urea nitrogen measurement (mass/volume ) 13 mg/dL 7-18 Serum or plasma creatinine measurement (mass/volume) 1.02 mg/dL 0.60-1.30 Serum or plasma urea nitrogen/creatinine mass ratio 13 NRG Serum or plasma creatinine measurement w ith calculation of estimated glomerular filtration rate 54 NRG Serum or plasma glucose measurement (mass/volume) 109 mg/dL 70-105 Serum or plasma calcium measurement (mass/volume) 8.6 mg/dL 8.5-10.1 Serum or plasma total bilirubin measurement (mass/volu me) 0.3 mg/dL 0.1-1.0 Serum or plasma alkaline phosphatase anselmo surement (enzymatic activity/volume) 133 U/L 40-136 Serum or plasma aspartate aminotransfera se measurement (enzymatic activity/volume) 32 U/L 5-34 Serum or plasma alanine aminotransferase measurement (enzymatic activity/volume) 13 U/L 0-55 Serum or plasma protein measurement (mass/volume) 6.1 g/dL 6.4-8.2 Serum or plasma albumin measurement (mass/volume) 3.3 g/dL 3.2-4.5 Complete blood count (CBC) with automate d white blood cell (WBC) differential - 06/03/17 08:50 Blood leukocytes automated count (number/volume) 7.4 10*3/uL 4.3-11.0 Blood erythrocytes automated count (number/volume) 3.95 10*6/uL 4.35-5.85 Venous blood hemoglobin measurement (mass/volume) 12.1 g/dL 11.5-16.0 Blood hematocrit (volume fraction) 37 % 35-52 Automated erythrocyte mean corpuscular volume 93 [ foz_us] 80-99 Automated erythrocyte mean corpuscular h emoglobin (mass per erythrocyte) 31 pg 25-34 Automated erythrocyte mean corpuscular h emoglobin concentration measurement (mass/volume) 33 g/dL 32-36 Automated erythrocyte distribution width ratio 14. 0 % 10.0- 14.5 Automated blood platelet count (count/volume) 178 10*3/uL [...] 10*3 1.0-4.0 Blood monocytes automated count (number/volume) 0. 7 10*3 0.0-1.0 Automated eosinophil count 0.3 10*3/uL 0 .0-0.3 Automated blood basophil count (count/volume) 0.0 10*3/uL 0.0-0.1 PT panel in platelet poor plasma by coag ulation assay - 06/03/17 08:50 Prothrombin time (PT) in platelet poor plasma by coagu lation assay 18.3 s 12.2-14.7 INR in platelet poor plasma or blood by coagulation as say 1.6 0.8-1.4 Activated partial thromboplastin time (a PTT) in platelet poor plasma bycoagulation assay - 06/03/17 08:50 Activated partial thromboplastin time (a PTT) in platelet poor plasma bycoagulation assay 36 s 24-35 Blood lactic acid measurement (moles/vol ume) - 06/03/17 08:50 Blood lactic acid measurement [...] 5-14 Serum or plasma urea nitrogen measurement (mass/volume ) 29 mg/dL 7-18 Serum or plasma creatinine measurement (mass/volume) 1.46 mg/dL 0.60-1.30 Serum or plasma urea nitrogen/creatinine mass ratio 20 NRG Serum or plasma creatinine measurement w ith calculation of estimated glomerular filtration rate 35 NRG Serum or plasma glucose measurement (mass/volume) 111 mg/dL 70-105 Serum or plasma calcium measurement (mass/volume) 9.7 mg/dL 8.5-10.1 Serum or plasma total bilirubin measurement (mass/volu me) 0.5 mg/dL 0.1-1.0 Serum or plasma alkaline phosphatase anselmo surement (enzymatic activity/volume) 108 U/L 40-136 Serum or plasma aspartate aminotransfera se measurement (enzymatic activity/volume) 33 U/L 5-34 Serum or plasma alanine aminotransferase measurement (enzymatic activity/volume) 22 U/L 0-55 Serum or plasma protein measurement (mass/volume) 6.8 g/dL 6.4-8.2 Serum or plasma albumin measurement (mass/volume) 4.0 g/dL 3.2-4.5 Bacterial blood culture - 06/03/17 08:50 Bacterial blood culture NG NRG Bacterial blood culture - 06/03/17 09:11 Bacterial blood culture NG NRG Complete urinalysis with reflex to cultu re - 06/03/17 10:49 Urine color determination YELLOW NRG Urine clarity determination SLIGHTLY CLOUDY NRG Urine pH measurement by test strip 7 5-9 Specific gravity of urine by test strip 1.010 1.016-1.022 Urine protein assay by test strip, semi-quantitative NEGATIVE NEGATIVE Urine glucose detection by automated test strip NE GATIVE NEGATIVE Erythrocytes detection in urine sediment by light micr oscopy NEGATIVE NEGATIVE Urine ketones detection by automated test strip NE GATIVE NEGATIVE Urine nitrite detection by test strip NEGATIVE NEGATIVE Urine total bilirubin detection by test strip NEGA TIVE NEGATIVE Urine urobilinogen measurement by automated test strip (mass/volume) NORMAL NORMAL Urine leukocyte esterase detection by dipstick 1+ NEGATIVE Automated urine sediment erythrocyte cou nt by microscopy (number/high power field) NONE NRG Automated urine sediment leukocyte count by microscopy (number/high power field) RARE NRG Bacteria detection in urine sediment by light microsco py NEGATIVE NRG Squamous epithelial cells detection in u rine sediment by light microscopy RARE NRG Crystals detection in urine sediment by light microsco py NONE NRG Casts detection in urine sediment by light microscopy NONE NRG Mucus detection in urine sediment by light microscopy SMALL NRG Complete urinalysis with reflex to culture NO NRG Complete blood count (CBC) with automate d white blood cell (WBC) differential - 09/04/17 12:42 Blood leukocytes automated count (number/volume) 5.9 10*3/uL 4.3-11.0 Blood erythrocytes automated count (number/volume) 4.00 10*6/uL 4.35-5.85 Venous blood hemoglobin measurement (mass/volume) 12.3 g/dL 11.5-16.0 Blood hematocrit (volume fraction) 38 % 35-52 Automated erythrocyte mean corpuscular volume 96 [ foz_us] 80-99 Automated erythrocyte mean corpuscular h emoglobin (mass per erythrocyte) 31 pg 25-34 Automated erythrocyte mean corpuscular h emoglobin concentration measurement (mass/volume) 32 g/dL 32-36 Automated erythrocyte distribution width ratio 14. 1 % 10.0- 14.5 Automated blood platelet count (count/volume) 204 10*3/uL [...] 10*3 1.0-4.0 Blood monocytes automated count (number/volume) 0. 6 10*3 0.0-1.0 Automated eosinophil count 0.3 10*3/uL 0 .0-0.3 Automated blood basophil count (count/volume) 0.0 10*3/uL 0.0-0.1 PT panel in platelet poor plasma by coag ulation assay - 09/04/17 12:42 Prothrombin time (PT) in platelet poor plasma by coagu lation assay 15.2 s 12.2-14.7 INR in platelet poor plasma or blood by coagulation as say 1.2 0.8-1.4 Activated partial thromboplastin time (a PTT) in platelet poor plasma bycoagulation assay - 09/04/17 12:42 Activated partial thromboplastin time (a PTT) in platelet poor plasma bycoagulation assay 33 s 24-35 Comprehensive metabolic panel - 09/04/17 12:42 Serum or plasma sodium measurement (moles/volume) 141 mmol/L 135-145 Serum or plasma potassium measurement (moles/volume) 4.2 mmol/L 3.6-5.0 Serum or plasma chloride measurement (moles/volume) 104 mmol/L 98-107 Carbon dioxide 29 mmol/L 21-32 Serum or plasma anion gap determination (moles/volume) 8 mmol/L 5-14 Serum or plasma urea nitrogen measurement (mass/volume ) 21 mg/dL 7-18 Serum or plasma creatinine measurement (mass/volume) 1.02 mg/dL 0.60-1.30 Serum or plasma urea nitrogen/creatinine mass ratio 21 NRG Serum or plasma creatinine measurement w ith calculation of estimated glomerular filtration rate 54 NRG Serum or plasma glucose measurement (mass/volume) 100 mg/dL 70-105 Serum or plasma calcium measurement (mass/volume) 9.4 mg/dL 8.5-10.1 Serum or plasma total bilirubin measurement (mass/volu me) 0.4 mg/dL 0.1-1.0 Serum or plasma alkaline phosphatase anselmo surement (enzymatic activity/volume) 109 U/L 40-136 Serum or plasma aspartate aminotransfera se measurement (enzymatic activity/volume) 26 U/L 5-34 Serum or plasma alanine aminotransferase measurement (enzymatic activity/volume) 22 U/L 0-55 Serum or plasma protein measurement (mass/volume) 6.9 g/dL 6.4-8.2 Serum or plasma albumin measurement (mass/volume) 4.0 g/dL 3.2-4.5 Magnesium - 09/04/17 12:42 Magnesium 1.7 mg/dL 1.8-2.4 Blood type T Indirect antibody screen pa moni - 09/04/17 12:42 ABO+Rh group OP NR Transfusion band number [id number] Blood group antibody screen NEGATIVE NR G Serum or plasma troponin i.cardiac measu rement (mass/volume) - 09/04/17 12:42 Serum or plasma troponin i.cardiac measurement (mass/v olume) < ng/mL <0.30 Serum or plasma thyroxine (T4) free mary ellen urement (mass/volume) - 09/04/17 12:42 Serum or plasma thyroxine (T4) free measurement (mass/ volume) 0.90 ng/dL 0.70-1.48 Serum or plasma thyrotropin measurement by detection limit <=0.05 miu/l (units/volume) - 09/04/17 12:42 Serum or plasma thyrotropin measurement by detection limit <=0.05 miu/l (units/volume) 9.27 u[iU]/mL 0.35-4.94 Complete blood count (CBC) with automate d white blood cell (WBC) differential - 05/09/20 11:10 Blood leukocytes automated count (number/volume) 7.6 10*3/uL 4.3-11.0 Blood erythrocytes automated count (number/volume) 4.66 10*6/uL 4.35-5.85 Venous blood hemoglobin measurement (mass/volume) 14.0 g/dL 11.5-16.0 Blood hematocrit (volume fraction) 44 % 35-52 Automated erythrocyte mean corpuscular volume 94 [ foz_us] 80-99 Automated erythrocyte mean corpuscular h emoglobin (mass per erythrocyte) 30 pg 25-34 Automated erythrocyte mean corpuscular h emoglobin concentration measurement (mass/volume) 32 g/dL 32-36 Automated erythrocyte distribution width ratio 15. 2 % 10.0- 14.5 Automated blood platelet count (count/volume) 256 10*3/uL 130-400 Automated blood platelet mean volume measurement 9.6 [foz_us] 7.4-10.4 Automated blood neutrophils/100 leukocytes 60 % 42-75 Automated blood lymphocytes/100 leukocytes 25 % 12-44 Blood monocytes/100 leukocytes 11 % 0-12 Automated blood eosinophils/100 leukocytes 3 % 0-10 Automated blood basophils/100 leukocytes 0 % 0-10 Blood neutrophils automated count (number/volume) 4.5 10*3 1.8-7.8 Blood lymphocytes automated count (number/volume) 1.9 10*3 1.0-4.0 Blood monocytes automated count (number/volume) 0. 9 10*3 0.0-1.0 Automated eosinophil count 0.3 10*3/uL 0 .0-0.3 Automated blood basophil count (count/volume) 0.0 10*3/uL 0.0-0.1 Comprehensive metabolic panel - 05/09/20 11:10 Serum or plasma sodium measurement (moles/volume) 140 mmol/L 135-145 Serum or plasma potassium measurement (moles/volume) 4.3 mmol/L 3.6-5.0 Serum or plasma chloride measurement (moles/volume) 97 mmol/L 98-107 Carbon dioxide 29 mmol/L 21-32 Serum or plasma anion gap determination (moles/volume) 14 mmol/L 5-14 Serum or plasma urea nitrogen measurement (mass/volume ) 18 mg/dL 7-18 Serum or plasma creatinine measurement (mass/volume) 1.51 mg/dL 0.60-1.30 Serum or plasma urea nitrogen/creatinine mass ratio 12 NRG Serum or plasma creatinine measurement w ith calculation of estimated glomerular filtration rate 34 NRG Serum or plasma glucose measurement (mass/volume) 126 mg/dL 70-105 Serum or plasma calcium measurement (mass/volume) 9.8 mg/dL 8.5-10.1 Serum or plasma total bilirubin measurement (mass/volu me) 0.5 mg/dL 0.1-1.0 Serum or plasma alkaline phosphatase anselmo surement (enzymatic activity/volume) 98 U/L 40-136 Serum or plasma aspartate aminotransfera se measurement (enzymatic activity/volume) 28 U/L 5-34 Serum or plasma alanine aminotransferase measurement (enzymatic activity/volume) 26 U/L 0-55 Serum or plasma protein measurement (mass/volume) 7.4 g/dL 6.4-8.2 Serum or plasma albumin measurement (mass/volume) 4.2 g/dL 3.2-4.5 CALCIUM CORRECTED 9.6 mg/dL 8.5-10.1 PT panel in platelet poor plasma by coag ulation assay - 05/09/20 11:10 Prothrombin time (PT) in platelet poor plasma by coagu lation assay 19.0 s 12.2-14.7 INR in platelet poor plasma or blood by coagulation as say 1.6 0.8-1.4 Activated partial thromboplastin time (a PTT) in platelet poor plasma bycoagulation assay - 05/09/20 11:10 Activated partial thromboplastin time (a PTT) in platelet poor plasma bycoagulation assay 34 s 24-35 Fibrin D-dimer FEU measurement in platel et poor plasma (mass/volume) - 05/09/20 11:10 Fibrin D-dimer FEU measurement in platelet poor plasma (mass/volume) 0.59 ug/mL 0.00-0.49 Magnesium - 05/09/20 11:10 Magnesium 2.2 mg/dL 1.6-2.4 PROCALCITONIN (PCT) - 05/09/20 11:10 PROCALCITONIN (PCT) 0.03 ng/mL <0.10 Myoglobin, serum - 05/09/20 11:10 Myoglobin, serum 100.9 ng/mL 10.0-92.0 Serum or plasma lithium measurement (mol es/volume) - 05/09/20 11:10 BNP PT 61.0 pg/mL <100.0 Serum or plasma troponin i.cardiac measu rement (mass/volume) - 05/09/20 11:10 Serum or plasma troponin i.cardiac measurement (mass/v olume) < ng/mL <0.028 Encounters ACCT No. Visit Date/Time Discharge Status Pt. Type Provider Facility Loc./Unit Complaint [id number] 08/06/2016 15:29:10 08/06/2016 23:59:5 9 CLS Outpatient [id number] 08/27/2019 13:35:00 019 23:59:59 CLS Outpatient AMAN ZAMARRIPA [facility] RAD RIGHT ELBOW,RIB PAIN [id number] 02/26/2018 07:39:00 018 23:59:59 CLS Outpatient DARSHAN SEGUNDO MD [facility] CARD CAD,CAROTID ARTERY STEN OSIS [id number] 02/19/2018 11:42:00 018 23:59:59 CLS Outpatient DARSHAN SEGUNDO MD [facility] CARD CAD,CAROTID ARTERY STEN OSIS [id number] 02/10/2018 16:24:00 018 23:59:59 CLS Outpatient ERIC RAYMOND MD [facility] RAD J20.9 [id number] 01/16/2018 13:33:00 018 23:59:59 CLS Outpatient ERIC RAYMOND MD [facility] RAD DYSKINESIS [id number] 01/03/2018 08:33:00 018 23:59:59 CLS Outpatient ERIC RAYMOND MD [facility] RAD HEMATURIA,MICROSCOPIC [id number] 11/15/2017 13:51:00 018 23:59:59 CLS Outpatient BRONWYN ORTEGA DO [facility] SDC ORIF INFECTION [id number] 10/25/2017 14:02:00 017 19:00:00 DIS Emergency ADRIAN RAHMAN [facility] ER FALL-LT ARM INJ [id number] 09/04/2017 12:38:00 017 15:20:00 DIS Emergency HARSH SKINNER DO [facility] ER JOVANI THROUGH THROAT [id number] 06/03/2017 08:45:00 017 12:03:00 DIS Emergency STEVE MELÉNDEZ MD [facility] ER SOA [id number] 09/27/2016 10:59:00 016 13:35:00 DIS Inpatient AYUSH SEXTON DO, [facility] 4TH PNEUMONIA [id number] 06/28/2016 13:15:00 016 10:30:00 DIS Inpatient ERIC RAYMOND MD [facility] 4TH HYPONATREMIA,FATIGUE,MA LAISE [id number] 06/18/2016 08:02:00 016 23:59:59 CLS Outpatient ZEENAT GRIJALVA [facility] CARD CAD,PASTORA,HTN [id number] 05/08/2016 08:19:00 016 23:59:59 CLS Outpatient ZEENAT GRIJALVA [facility] CARD CAD,PASTORA,HTN ,HLP [id number] 09/12/2015 14:45:00 015 15:00:00 DIS Outpatient ERIC MARRERO DO [facility] SLEEP HPN,ISCHEMIC HEART DISEASE,STROKE,INSOMNIA,EDS [id number] 06/23/2015 08:34:00 015 23:59:59 CLS Outpatient GENIA CARMONA MD [facility] RAD RADICULOPATHY [id number] 06/22/2015 15:14:00 015 23:59:59 CLS Outpatient GENIA CARMONA MD [facility] RAD [id number] 06/17/2015 14:56:00 015 23:59:59 CLS Outpatient GENIA CARMONA MD [facility] RAD [id number] 02/24/2015 14:28:00 11:45:00 DIS Inpatient ERIC RAYMOND MD Via [address] [id number] 03/01/2015 08:00:00 23:59:59 CLS Preadmit ERIC MARRERO DO [facility] PULM COPD,CAD,DYSPNEA,HTN,HL P [id number] 02/15/2015 13:00:00 015 00:01:00 DIS Outpatient ERIC MARRERO DO [facility] PULM [id number] 02/21/2015 12:23:00 015 23:59:59 CLS Outpatient ERIC RAYMOND MD [facility] RAD FELL ON RIGHT KNEE [id number] 01/24/2015 08:31:00 015 23:59:59 CLS Outpatient DARSHAN SEGUNDO MD [facility] CARD CAD,HTN,HLP [id number] 11/29/2014 14:01:00 015 23:59:59 CLS Outpatient ERIC MARRERO DO [facility] RT [id number] 11/17/2014 12:18:00 015 13:00:00 DIS Inpatient ERIC RAYMOND MD [facility] 4TH SOA [id number] 11/15/2014 12:10:00 015 23:59:59 CLS Outpatient JUANA FLANNERY MD [facility] RAD [id number] 10/25/2014 13:24:00 23:59:59 CLS Outpatient ELIDA ALANIS ERIC M [facility] RAD [id number] 08/18/2014 10:34:00 014 13:30:00 DIS Inpatient SEGUNDO SHRESTHA, ERIC Jackson [facility] [id number] 07/07/2014 08:08:00 23:59:59 CLS Outpatient DARSHAN SEGUNDO MD [facility] CARD [id number] 03/21/2014 02:12:00 09:06:00 DIS Outpatient DARSHAN SEGUNDO MD [facility] [id number] 05/09/2020 11:35:00 Document Registration [id number] 08/29/2016 08:10:00 Document Registration [id number] 01/05/2015 11:07:00 Document Registration [id number] 12/21/2014 15:44:00 Document Registration [id number] 12/17/2014 21:13:00 Document Registration [id number] 05/07/2013 09:30:00 Document Registration [id number] 02/05/2013 10:23:00 Document Registration [id number] 01/28/2013 08:16:00 Document Registration [id number] 03/02/2007 10:12:00 Document Registration
[2020-05-09] MEDS: CATHETER FLUSH 10 ML SYR IV SCH ×2 (14:29→22:24)
--- NOTE | 2020-05-09 15:40 | Consultation-Cardiology ---
HPI-Cardiology Cardiology Consultation: Date of Consultation 05/09/20 Date of Admission Attending Physician Ariella Jacobo MD Admitting Physician Russ Avalos MD Consulting Physician Cale MARIE MD HPI: Time Seen by a Provider: 12:00 Chief Complaint: Chest pain This is a 74-year-old lady who follows with Dr. Russell. She presented to Dr. Russell's office with complaints of chest pain and palpitations. Chest pain was described as tightness. EKG in the office demonstrated SVT. She has history of atrial fibrillation and is on oral anticoagulation and beta heath. She also complained of shortness of breath. She denies active smoking. She has previous history of CABG. Recent admission in [place] for possible CHF exacerbation. She was given Lasix. Echocardiogram by Dr. Russell in 2018 shows an EF of 55-65 percent with grade 1 diastolic dysfunction. When I saw the patient she was feeling much better with no significant chest pain, palpitation or shortness of breath. Review of Systems-Cardiology Review of Systems Constitutional: As described under HPI; No As described under HPI, No no symptoms reported, No chills, No fever, No lightheadedness Eyes: No As described under HPI, No no symptoms reported, No blindness, No blurred vision, No contact lenses, No drainage, No decreased acuity, No foreign body sensation, No pain, No vision change Ears/Nose/Throat: No As described under HPI, No no symptoms reported, No chronic hearing loss, No ear discharge, No ear pain, No nasal drainage, No ulcerations Respiratory: No no symptoms reported; As described under HPI; No As described under HPI, No cough, No orthopnea, No shortness of breath, No SOB with excertion Cardiovascular: No no symptoms reported; As described under HPI; No As described under HPI; chest pain; No edema, No irregular heart rate, No lightheadedness; palpitations Gastrointestinal: No no symptoms reported, No As described under HPI, No abdomen distended, No abdominal pain, No blood streaked bowels, No constipation, No diarrhea, No nausea, No vomiting, No stool coloration changes Genitourinary: No As described under HPI, No burning, No dysuria, No discharge, No frequency, No flank pain, No hematuria, No urgency : Yes : No Skin: No rash, No skin related problems, No ulcerations Psychiatric/Neurological: No anxiety, No depression, No seizure, No focal weakness, No syncope Hematologic: No bleeding abnormalities All Other Systems Reviewed Negative Unless Noted: Yes HAN-Rkmspw-Ezflaf Hx Patient Social History Alcohol Use: Denies Use Recreational Drug Use: No Smoking Status: Former Smoker Former smoker/When Quit: Oct 28, 2006 Type Used: Cigarettes Recent Foreign Travel: No Recent Infectious Disease Expo: No Immunizations Up To Date Tetanus Booster (TDap): Less than 5yrs Date of Pneumonia Vaccine: March 21, 2014 Date of Influenza Vaccine: Aug 26, 2017 Past Medical History PMH As described under Assessment. Family Medical History Family History: Cardiovascular disease 19 FATHER 19 MOTHER G8 BROTHER G8 BROTHER FH: CHF (congestive heart failure) 19 MOTHER G8 BROTHER Myocardial infarction 19 FATHER G8 BROTHER G8 BROTHER Allergies and Home Medications Allergies Coded Allergies: Penicillins (Verified Allergy, Unknown, RASH, HAS HAD ROCEPHIN IN THE PAST W/O ISSUE, 09/27/16) clarithromycin (Verified Allergy, Unknown, 09/27/16) erythromycin base (Verified Allergy, Unknown, 09/27/16) levofloxacin (Verified Allergy, Unknown, 09/04/17) morphine (Verified Allergy, Unknown, TAKES LORTAB AT HOME, 09/27/16) Home Medications Allopurinol 300 Mg Tablet, 300 MG PO DAILY, (Reported) Diclofenac Sodium 100 Gm Gel..gram., 2 GM TP QID PRN for PAIN-BREAKTHROUGH, (Reported) Dronedarone HCl 400 Mg Tablet, 400 MG PO Q12H, (Reported) Duloxetine HCl 30 Mg Capsule.dr, 60 MG PO DAILY, (Reported) TAKES 2 (30MG) CAPS DAILY Furosemide 20 Mg Tablet, 20 MG PO DAILY, (Reported) Ibandronate Sodium 150 Mg Tablet, 150 MG PO MONTHLY, (Reported) Ibuprofen 800 Mg Tablet, 800 MG PO Q8H PRN for PAIN-MILD, (Reported) Levothyroxine Sodium 125 Mcg Tablet, 125 MCG PO DAILY, (Reported) Nebivolol HCl 2.5 Mg Tablet, 2.5 MG PO DAILY, (Reported) Rivaroxaban 20 Mg Tablet, 20 MG PO DAILY, (Reported) Rosuvastatin Calcium 40 Mg Tablet, 40 MG PO HS, (Reported) Patient Home Medication List Home Medication List Reviewed: Yes Physical Exam-Cardiology Physical Exam Vital Signs/I&O 05/10/20 05/10/20 05/10/20 05/10/20 04:00 08:00 08:00 09:00 Temp 36.0 Pulse 88 Resp 16 B/P (MAP) 100/57 (71) Pulse Ox 93 O2 Delivery Room Air Room Air Room Air Room Air 05/10/20 05/10/20 05/10/20 05/10/20 09:09 11:37 11:49 12:44 Pulse 91 87 88 Resp 18 B/P (MAP) 117/58 (77) Pulse Ox 94 O2 Delivery Room Air Room Air 05/10/20 15:09 O2 Delivery Room Air 05/10/20 00:00 Intake Total 1350 ml Balance 1350 ml Capillary Refill : Less Than 3 Seconds Constitutional: appears stated age; No apparent distress; well-developed, well- nourished HEENT: PERRL; No discharge; hearing is well preserved, oral hygience is good; No ulceration, No xanthelasmas are seen Neck: No carotid bruit; carotid pulses are 2 + bilaterally Respiratory: chest is bilaterally symmetric, lungs clear to auscultation Cardiovascular: regular rate-rhythm, S1 and S2 Gastrointestinal: soft, audible bowel sounds; No spleenomegaly Rectal: deferred Extremities: normal range of motion, non-tender, normal inspection; No clubbing, No cyanosis; no lower extremity edema bilateral; No significant edema Neurologic/Psychiatric: no motor/sensory deficits, alert, normal mood/affect, oriented x 3, power is 5/5 both on sides Skin: normal color, warm/dry; No rash, No ulcerations Data Review Labs Laboratory Tests 05/09/20 17:30: Troponin I < 0.028 05/09/20 22:45: Troponin I < 0.028 05/10/20 03:34: White Blood Count 7.5, Red Blood Count 3.93L, Hemoglobin 11.9, Hematocrit 38, Mean Corpuscular Volume 96, Mean Corpuscular Hemoglobin 30, Mean Corpuscular Hemoglobin Concent 32, Red Cell Distribution Width 14.9H, Platelet Count 211, Mean Platelet Volume 9.6, Neutrophils (%) (Auto) 57, Lymphocytes (%) (Auto) 27, Monocytes (%) (Auto) 12, Eosinophils (%) (Auto) 4, Basophils (%) (Auto) 0, Neutrophils # (Auto) 4.3, Lymphocytes # (Auto) 2.0, Monocytes # (Auto) 0.9, Eosinophils # (Auto) 0.3, Basophils # (Auto) 0.0, Neutrophils % (Manual) 51, Lymphocytes % (Manual) 37, Monocytes % (Manual) 4, Eosinophils % (Manual) 4, Band Neutrophils 4, Blood Morphology Comment NORMAL, Sodium Level 140, Potassium Level 4.3, Chloride Level 101, Carbon Dioxide Level 27, Anion Gap 12, Blood Urea Nitrogen 20H, Creatinine 1.45H, Estimat Glomerular Filtration Rate 35, BUN/Creatinine Ratio 14, Glucose Level 113H, Calcium Level 9.0, Corrected Calcium 9.3, Total Bilirubin 0.5, Aspartate Amino Transf (AST/SGOT) 23, Alanine Aminotransferase (ALT/SGPT) 19, Alkaline Phosphatase 82, Total Protein 6.2L, Albumin 3.6, Triglycerides Level 164H, Cholesterol Level 174, LDL Cholesterol Direct 113, VLDL Cholesterol 33, HDL Cholesterol 54, Thyroid Stimulating Hormone (TSH) 2.14 ECG Impression ECG Initial ECG Rhythm: Normal Sinus Initial ECG Impression: Nonspecific Changes A/P-Cardiology Assessment/Admission Diagnosis Chest pain, Proximal atrial fibrillation, History of CAD/CABG, Hypertension, Chronic kidney disease Plan Chest pain, unstable angina, probably secondary to tachycardia, no acute ischemic changes, serial troponin negative. Nuclear stress test is recommended. Shortness of breath, worsening recently, has been in [place] for the past 3 months, returned last week, no fever or chills. No cough, COVID pending. Supraventricular tachycardia, probably atrial fibrillation or flutter, heart rate 152 with narrow complex, no acute ischemic changes. After going to the emergency room will consider starting Cardizem drip. Coronary artery disease, history of CABG 3 done in 2006. Cardiac catheterization was done in February 2014 showing patent LUNA to the LAD, 60 percent stenosis at the distal portion of the LUNA. The proximal LAD has 90 percent stenosis with good flow supply to the LAD system. The vein graft to the obtuse marginal branch is patent with excellent flow distally and the vein graft to the right coronary artery is patent with excellent flow distally. Normal left ventricular size and systolic function. Most recent stress test, 2-D echocardiogram done January 2018 within normal limits. Sending her to the emergency room will evaluate cardiac enzymes History of frequent premature ventricular contractions. Patient has episodes of frequent paroxysmal atrial tachycardia with wide-complex tachycardia, sees Dr. Miller at [facility]. She is status post Linq implantation that has been followed by Dr. Miller, it was extracted by Dr. Bedolla. Has been doing well. Continue to monitorat the same time, most recent EKG revealed normal QT. Continue to monitor Hypertension, monitor blood pressure Hyperlipidemia, evaluate lipid profile History of carotid stenosis. Left carotid endarterectomy. Last ultrasound report showed moderate disease in the right carotid artery, more significant disease on the left side. Followed and managed by heart and vascular care. Continue to monitor. History of dizziness and lightheadedness. Reporting improvement. Continue to monitor. COPD, probably acute exacerbation at this time, followed and managed by Dr. Rodríguez. History of renal failure Hypothyroidism followed and managed by primary care physician. Chronic renal insufficiency, patient is following with Dr. Erica Meza Thank you for your consultation. Please call me if you have any questions. Sissy Marie MD, FACP, FACC, [facility] [place], [place] Interventional Cardiology Cardiac Electrophysiology Vascular Medicine and Endovascular Interventions Clinical Quality Measures DVT/VTE Risk/Contraindication: Risk Factor Score Per Nursin RFS Level Per Nursing on Admit: 2=Moderate Cale MARIE MD May 09, 2020 15:40
[2020-05-09 16:12] VITALS: BP 135/77
[2020-05-09 16:24] VITALS: BP 107/70
[2020-05-09] MEDS: RIVAROXABAN 20 MG TABLET (XARELTO) PO SCH (17:35)
[2020-05-09 20:00] VITALS: BP 130/81
[2020-05-09] MEDS: DRONEDARONE TABLET 400 MG TABLET PO SCH (20:37)
[2020-05-09] MEDS: CARVEDILOL 6.25 MG (COREG) TAB PO SCH (20:37)
[2020-05-09] MEDS ORDERED: RT-ALBUTEROL INHALER HFA (VENTOLIN HFA) 18 GM IH SCH (21:00)
[2020-05-09 23:51] VITALS: BP 130/81
[2020-05-09 23:54] VITALS: BP 129/80
--- NOTE | 2020-05-09 23:58 | NUR ---
PT REFUSED ALUBTEROL MDI Q6 TXS, RE-EVALUATED PT CHANGED ALBUTEROL MDI TO PRN OXYGEN AT 2 LPM AT HS RE-EVALUATE IN 72 HOURS OR SOONER IF NEEDED Addendum: 05/09/20 at 2359 by DONNA DOAN RT Amended: Links added.
[2020-05-10] MEDS ORDERED: RT-ALBUTEROL INHALER HFA (VENTOLIN HFA) 18 GM IH PRN (00:23)
[2020-05-10 03:20] VITALS: BP 108/70
[2020-05-10 03:36] LABS: BASOPHILS % (AUTO) 0 % (0-10); EOSINOPHILS # (AUTO) 0.3 10^3/uL (0.0-0.3); EOSINOPHILS % (AUTO) 4 % (0-10); HEMATOCRIT 38 % (35-52); HEMOGLOBIN 11.9 G/DL (11.5-16.0); LYMPHOCYTES % (AUTO) 27 % (12-44); MEAN CORPUSCULAR HEMOGLOBIN 30 PG (25-34); MEAN CORPUSCULAR HGB CONC 32 G/DL (32-36); MEAN CORPUSCULAR VOLUME 96 FL (80-99); MEAN PLATELET VOLUME 9.6 FL (7.4-10.4); MONOCYTES # (AUTO) 0.9 X 10^3 (0.0-1.0); MONOCYTES % (AUTO) 12 % (0-12); NEUTROPHILS # (AUTO) 4.3 X 10^3 (1.8-7.8); NEUTROPHILS % (AUTO) 57 % (42-75); PLATELET COUNT 211 10^3/uL (130-400); RED CELL DISTRIBUTION WIDTH 14.9 % (10.0-14.5); WHITE BLOOD COUNT 7.5 10^3/uL (4.3-11.0)
[2020-05-10 03:59] LABS: ALBUMIN 3.6 GM/DL (3.2-4.5); POTASSIUM 4.3 MMOL/L (3.6-5.0)
[2020-05-10 04:01] LABS: TOTAL PROTEIN 6.2 GM/DL (6.4-8.2)
[2020-05-10 04:03] LABS: BILIRUBIN,TOTAL 0.5 MG/DL (0.1-1.0)
[2020-05-10 04:05] LABS: CREATININE SERUM 1.45 MG/DL (0.60-1.30)
[2020-05-10 04:09] LABS: BAND NEUTROPHILS 4 %; EOSINOPHILS % (MANUAL) 4 %; LYMPHOCYTES % (MANUAL) 37 %; MONOCYTES % (MANUAL) 4 %; NEUTROPHILS % (MANUAL) 51 %; RBC MORPH NORMAL
[2020-05-10] MEDS: ISOSORBIDE MONONITRATE 30 MG (IMDUR) TAB PO SCH (05:45)
[2020-05-10] MEDS: CATHETER FLUSH 10 ML SYR IV SCH ×3 (06:03→21:29)
[2020-05-10 08:00] VITALS: BP 100/57
[2020-05-10] MEDS: CARVEDILOL 6.25 MG (COREG) TAB PO SCH ×3 (08:43→21:32)
[2020-05-10] MEDS: DRONEDARONE TABLET 400 MG TABLET PO SCH ×2 (08:43→21:28)
[2020-05-10] MEDS: ASPIRIN E.C. 81 MG (ECOTRIN) TAB PO SCH (08:43)
[2020-05-10] MEDS ORDERED: REGADENOSON 0.4 MG/5 ML SYR (LEXISCAN) IV ONE ×2 (09:30→11:32)
--- NOTE | 2020-05-10 09:46 | History & Physical-Hospitalist ---
History of Present Illness HPI/Chief Complaint Pt is a 74yoCF with a PMH of CAD s/p CABG, CHF, CKD, a-fib who presented to the ER from Dr Mooney due to a-fib with RVR. She reports that she was in the [place] at her vacation home and was admitted to the hospital due to heart failure last week. She drove backa nd scheduled a follow up with Dr Russell. On arrival to the appt she was SOB and ARAUJO. She felt her heart was racing as well. EKG at Dr Mooney per her report revealed a-fib with RVR. She was then referred to the ER. She denies a cough, fever, or exposure to any one with COVID symptoms and despite being in [place] has been quarantining in her home. She was tested for COVID on admission and is negative. This morning she reports feeling better. Source: patient Date Seen 05/10/20 Time Seen by a Provider: 09:41 Attending Physician Stan Jacobo MD PCP Russ Avalos MD Referring Physician Date of Admission May 09, 2020 at 12:26 Home Medications & Allergies Home Medications Reviewed patient Home Medication Reconciliation performed by pharmacy medication reconciliations collection systems technician and/or nursing. Patients Allergies have been reviewed. Allergies Allergies Coded Allergies Penicillins (Verified Allergy, Unknown, RASH, HAS HAD ROCEPHIN IN THE PAST W/O ISSUE, 09/27/16) clarithromycin (Verified Allergy, Unknown, 09/27/16) erythromycin base (Verified Allergy, Unknown, 09/27/16) levofloxacin (Verified Allergy, Unknown, 09/04/17) morphine (Verified Allergy, Unknown, TAKES LORTAB AT HOME, 09/27/16) Past Kcnrdzz-Dyswie-Dbouov Hx Past Med/Social Hx: Reviewed Nursing Past Med/Soc Hx Patient Social History Alcohol Use: Denies Use Recreational Drug Use: No Smoking Status: Former Smoker Former Smoker, Quit: Jan 27, 2007 Type Used: Cigarettes Recent Foreign Travel: No Contact w/other who traveled: No Recent Hopitalizations: No Recent Infectious Disease Expo: No Immunizations Up To Date Tetanus Booster (TDap): Less than 5yrs Date of Pneumonia Vaccine: March 21, 2014 Date of Influenza Vaccine: Aug 26, 2017 Seasonal Allergies Seasonal Allergies: No Past Medical History Surgeries: CABG, Hysterectomy, Vascular Surgery Respiratory: COPD Cardiac: Atrial Fibrillation, Coronary Artery Disease, Valvular Heart Disease Neurological: Stroke Reproductive: No Female Reproductive Disorders: Denies Genitourinary: Kidney Stones, UTI-Chronic Gastrointestinal: Gastroesophageal Reflux, Hepatitis Musculoskeletal: Osteoporosis, Arthritis, Scoliosis, Fractures Endocrine: Hypothyroidsim HEENT: Cataract Loss of Vision: Denies Hearing Impairment: Denies Psychosocial: Depression Skin/Integumentary: Eczema, Recent Skin Changes History of Blood Disorders: No Adverse Reaction to Blood Serrano: No Family History Reviewed Nursing Family Hx Cardiovascular disease 19 FATHER 19 MOTHER G8 BROTHER G8 BROTHER FH: CHF (congestive heart failure) 19 MOTHER G8 BROTHER Myocardial infarction 19 FATHER G8 BROTHER G8 BROTHER Heart Disease Review of Systems Constitutional: No chills, No fever EENTM: no symptoms reported Respiratory: No cough; dyspnea on exertion, short of breath Cardiovascular: No chest pain, No edema; palpitations Gastrointestinal: No abdominal pain; nausea, vomiting Genitourinary: No decreased output, No dysuria, No incontinence Musculoskeletal: no symptoms reported Skin: no symptoms reported Psychiatric/Neurological: No Symptoms Reported Physical Exam Physical Exam Vital Signs Vital Signs - First Documented 05/09/20 05/09/20 05/09/20 10:51 16:24 23:54 Temp 37.0 Pulse 105 Resp 16 B/P (MAP) 107/70 (82) Pulse Ox 96 O2 Delivery Room Air O2 Flow Rate 2.00 FiO2 21 Capillary Refill : Less Than 3 Seconds Height, Weight, BMI Height: 5'4.00" Weight: 160lbs. 4.0oz. [id number]; 33.32 BMI Method:Estimated General Appearance: No Apparent Distress, WD/WN HEENT: PERRL/EOMI, Moist Mucous Membranes Neck: Normal Inspection, Supple Respiratory: Lungs Clear, No Accessory Muscle Use, No Respiratory Distress Cardiovascular: Regular Rate, Rhythm, No JVD, No Murmur Gastrointestinal: Normal Bowel Sounds, Non Tender, Soft Extremity: No Calf Tenderness, No Pedal Edema Neurologic/Psychiatric: Alert, Oriented x3, Normal Mood/Affect Skin: Normal Color, Warm/Dry Results Results/Procedures Labs Laboratory Tests 05/09/20 11:10 05/10/20 03:34 Patient resulted labs reviewed. Imaging: Reviewed Imaging Report Imaging [facility], [place] NAME: [facility] REC#: [id number] PT STATUS: ADM Palm[place] : 1945 PHYSICIAN: MANDY DELVALLE MD ADMIT DATE: 05/09/20/[facility] Signed Date of Exam:05/09/20 CHEST 1 VIEW, AP/PA ONLY INDICATION: Shortness of air, chest pain. TECHNIQUE: Single view chest 11:20 AM. CORRELATION STUDY: 02/10/2018 FINDINGS: Poststernotomy and coronary artery bypass. Heart size borderline enlarged. Vasculature is a slightly prominent without evidence of overt failure. Chronic appearing changes about the lung parenchyma. No consolidating infiltrate. Multiple old healed bilateral rib fracture deformities likely distal right clavicle fracture from a prior right rotator cuff surgery. IMPRESSION: 1. . Poststernotomy changes. Dictated by: Dictated on workstation # [id number] Dict: 05/09/20 1130 Trans: 05/09/20 1432 CVB [id number] Interpreted by: LIZZETH ROBERTS DO Electronically signed by: LIZZETH ROBERTS DO 05/09/20 1432 Assessment/Plan Admission Diagnosis A-fib with RVR Admission Status: Observation Assessment and Plan A-fib with RVR CAD s/p CABG HTN rate improved with IVF, never necessitated cardizem gtt Cardiology consulted, appreciate recs Echo ordered Stress test ordered troponin negative Hypothyroidism Check TSH CKD Follows with [facility] Request records to find baseline creatinine Continue IVF, hold lasix Clinical Quality Measures DVT/VTE Risk/Contraindication: Risk Factor Score Per Nursin RFS Level Per Nursing on Admit: 2=Moderate STAN JACOBO MD May 10, 2020 09:46
[2020-05-10] MEDS ORDERED: DULO30CA49 PO (10:01)
[2020-05-10] MEDS ORDERED: IBAN150T21 PO (10:01)
[2020-05-10] MEDS ORDERED: ROSU40TA23 PO (10:01)
[2020-05-10] MEDS ORDERED: ALLO300T2 PO (10:01)
[2020-05-10] MEDS ORDERED: IBUP-1780 PO (10:01)
[2020-05-10] MEDS ORDERED: LEVO125T6 PO (10:01)
[2020-05-10] MEDS ORDERED: DICL100G18 TP (10:01)
[2020-05-10] MEDS ORDERED: NEBI2.5T5 PO (10:01)
[2020-05-10] MEDS ORDERED: NF-DICLOTA PO (10:01)
[2020-05-10] MEDS ORDERED: FURO20TA4 PO (10:02)
[2020-05-10 11:49] VITALS: BP 117/58
--- NOTE | 2020-05-10 11:59 | NUR ---
POKE WITH THE PT, CALLED [facility] BY MAIL ([facility]) AND WENT THRU THE EXT MED HISTORY TO COMPLETE THE MED REC THE FOLLOWING ARE FILL DATES FROM THE MAIL ORDER: 01-23-2020 MULTAQ 400MG #180/30DS 01-23-2020 LEVOTHYROXINE 125MCG #90/90DS 02-21-2020 BYSTOLIC 2.5MG #90/90DS 02-21-2020 ROSUVASTATIN 40MG #90/90DS 02-21-2020 DULOXETINE 30MG #180/90DS 02-23-2020 XARELTO 20MG #90/90DS 05-09-2020 ALLOPURINOL 300MG #90/90DS 05-09-2020 DICLOFENAC GEL #1 TUBE 05-09-2020 BONIVA 150MG #3/90DS 05-09-2020 IBUPROFEN 800MG #270 PT WAS ALSO JUST STARTED ON FUROSEMIDE AND THAT IS LISTED ON THE EXT MED HISTORY
[2020-05-10] MEDS ORDERED: DICLOFENAC 1% GEL 100 GM (VOLTAREN) TUBE TP PRN (13:45)
--- NOTE | 2020-05-10 14:24 | Cardiology Stress Test Report ---
Stress Test Report Type of NM Stress Test: Test Type: LEXISCAN 0.4MG/5ML Date of Procedure/Referring: Date of Procedure: May 10, 2020 PCP Ariella Jacobo MD Admitting Physician Russ Avalos MD Indications: Chest pain Baseline Heart Rate: 88 Baseline Blood Pressure: Blood Pressure Systolic: 117 Blood Pressure Diastolic: 58 Baseline EKG: Baseline EKG: sinus rhythm Summary & Conclusion: Summary: The patient was brought to the stress lab after informed consent was taken. Stress test was performed according to the Lexiscan protocol. 0.4 mg of IV Lexiscan was given. Low-grade exercise was performed. Baseline EKG showed sinus rhythm at 88 bpm, blood pressure 100/59 mmHg. Maximum heart rate of 99 bpm and blood pressure 133/62 mmHg. Patient did not have any chest pain, arrhythmias or ST segment changes during the stress test. 10.44 mCi of Myoview were given for rest imaging and 32.5 mCi of Myoview given for stress imaging. Transient ischemic dilatation score 1.04, EF 61 percent. Normal wall motion. Normal myocardial perfusion imaging during rest and stress. Conclusion: Pharmacological stress test was negative for ischemia. Normal LV function with no wall motion abnormalities. Normal myocardial perfusion imaging during rest and stress. Cale MURRAY MD May 10, 2020 14:24
--- NOTE | 2020-05-10 15:26 | Cardiology Progress Note ---
Cardiology SOAP Progress Note Subjective: No cardiac complaints. Objective: I&O/Vital Signs 05/10/20 05/10/20 05/10/20 05/10/20 04:00 08:00 08:00 09:00 Temp 36.0 Pulse 88 Resp 16 B/P (MAP) 100/57 (71) Pulse Ox 93 O2 Delivery Room Air Room Air Room Air Room Air 05/10/20 05/10/20 05/10/20 05/10/20 09:09 11:37 11:49 12:44 Pulse 91 87 88 Resp 18 B/P (MAP) 117/58 (77) Pulse Ox 94 O2 Delivery Room Air Room Air 05/10/20 15:09 O2 Delivery Room Air 05/10/20 00:00 Intake Total 1350 ml Balance 1350 ml Weight (Pounds): 160 Weight (Ounces): 4.0 Weight (Calculated Kilograms): 72.139070 Constitutional: appears stated age; No apparent distress; well-developed, well- nourished Respiratory: chest is bilaterally symmetric, lungs clear to auscultation Cardiovascular: regular rate-rhythm, S1 and S2 Gastrointestional: soft, audible bowel sounds; No spleenomegaly Extremities: normal range of motion, non-tender, normal inspection; No clubbing, No cyanosis; no lower extremity edema bilateral; No significant edema Neurologic/Psychiatric: no motor/sensory deficits, alert, normal mood/affect, oriented x 3, power is 5/5 both on sides Skin: normal color, warm/dry; No rash, No ulcerations Results/Procedures: Labs Laboratory Tests 05/09/20 17:30: Troponin I < 0.028 05/09/20 22:45: Troponin I < 0.028 05/10/20 03:34: White Blood Count 7.5, Red Blood Count 3.93L, Hemoglobin 11.9, Hematocrit 38, Mean Corpuscular Volume 96, Mean Corpuscular Hemoglobin 30, Mean Corpuscular Hemoglobin Concent 32, Red Cell Distribution Width 14.9H, Platelet Count 211, Mean Platelet Volume 9.6, Neutrophils (%) (Auto) 57, Lymphocytes (%) (Auto) 27, Monocytes (%) (Auto) 12, Eosinophils (%) (Auto) 4, Basophils (%) (Auto) 0, Neutrophils # (Auto) 4.3, Lymphocytes # (Auto) 2.0, Monocytes # (Auto) 0.9, Eosinophils # (Auto) 0.3, Basophils # (Auto) 0.0, Neutrophils % (Manual) 51, Lymphocytes % (Manual) 37, Monocytes % (Manual) 4, Eosinophils % (Manual) 4, Band Neutrophils 4, Blood Morphology Comment NORMAL, Sodium Level 140, Potassium Level 4.3, Chloride Level 101, Carbon Dioxide Level 27, Anion Gap 12, Blood Urea Nitrogen 20H, Creatinine 1.45H, Estimat Glomerular Filtration Rate 35, BUN/Cr eatinine Ratio 14, Glucose Level 113H, Calcium Level 9.0, Corrected Calcium 9.3, Total Bilirubin 0.5, Aspartate Amino Transf (AST/SGOT) 23, Alanine Aminotransferase (ALT/SGPT) 19, Alkaline Phosphatase 82, Total Protein 6.2L, Albumin 3.6, Triglycerides Level 164H, Cholesterol Level 174, LDL Cholesterol Direct 113, VLDL Cholesterol 33, HDL Cholesterol 54, Thyroid Stimulating Hormone (TSH) 2.14 A/P: Assessment/Dx: Chest pain, Proximal atrial fibrillation, History of CAD/CABG, Hypertension, Chronic kidney disease Plan: Chest pain, unstable angina, probably secondary to tachycardia, no acute ischemic changes, serial troponin negative. Nuclear stress test done 05/10/2020 showed no evidence of ischemia or infarction. Shortness of breath, worsening recently, has been in [place] for the past 3 months, returned last week, no fever or chills. No cough. COVID negative. Supraventricular tachycardia, probably atrial fibrillation or flutter, heart rate 152 with narrow complex, no acute ischemic changes. Atrial fibrillation. Converted to sinus rhythm. Well controlled. Coronary artery disease, history of CABG 3 done in 2006. Cardiac catheterization was done in February 2014 showing patent LUNA to the LAD, 60 percent stenosis at the distal portion of the LUNA. The proximal LAD has 90 percent stenosis with good flow supply to the LAD system. The vein graft to the obtuse marginal branch is patent with excellent flow distally and the vein graft to the right coronary artery is patent with excellent flow distally. Normal left ventricular size and systolic function. Most recent stress test, 2-D echocardiogram done January 2018 within normal limits. Sending her to the emergency room will evaluate cardiac enzymes History of frequent premature ventricular contractions. Patient has episodes of frequent paroxysmal atrial tachycardia with wide-complex tachycardia, sees Dr. Miller at [facility]. She is status post Linq implantation that has been followed by Dr. Miller, it was extracted by Dr. Bedolla. Has been doing well. Continue to monitorat the same time, most recent EKG revealed normal QT. Continue to monitor Hypertension, monitor blood pressure Hyperlipidemia, evaluate lipid profile History of carotid stenosis. Left carotid endarterectomy. Last ultrasound report showed moderate disease in the right carotid artery, more significant disease on the left side. Followed and managed by heart and vascular care. Continue to monitor. History of dizziness and lightheadedness. Reporting improvement. Continue to monitor. COPD, probably acute exacerbation at this time, followed and managed by Dr. Rodríguez. History of renal failure Hypothyroidism followed and managed by primary care physician. Chronic renal insufficiency, patient is following with Dr. Erica Meza Patient can be discharged from a cardiac perspective and follow up outpatient with Dr. Russell. Thank you for your consultation. Please call me if you have any questions. Sissy Marie MD, FACP, FACC, FSCAI, FHRS, CCDS Interventional Cardiology Cardiac Electrophysiology Vascular Medicine and Endovascular Interventions Cale MARIE MD May 10, 2020 15:26
[2020-05-10 15:50] VITALS: BP 139/80
[2020-05-10] MEDS: RIVAROXABAN 20 MG TABLET (XARELTO) PO SCH (16:48)
[2020-05-10 20:00] VITALS: BP 100/58
[2020-05-10] MEDS ORDERED: ROSUVASTATIN 20 MG (CRESTOR) TABLET PO SCH (21:00)
[2020-05-10] MEDS ORDERED: rOPINIRole 0.25 MG (REQUIP) TAB PO PRN (21:00)
[2020-05-10] MEDS ORDERED: NON-FORMULARY MEDICATION 1 EA EA (Rosuvastatin Calcium 40 MG) PO SCH (21:00)
[2020-05-10] MEDS ORDERED: ZOLPIDEM 5 MG (AMBIEN) TAB ONE (23:06)
[2020-05-10] MEDS ORDERED: ZOLPIDEM 5 MG (AMBIEN) TAB PO ONE (23:15)
--- NOTE | 2020-05-10 23:21 | NUR ---
THIS RN CONTACTED DR. RAMOS TO REQUEST A SLEEP AID PER PT REQUEST. NEW ORDER FOR AMBIEN 5MG PO X1. THIS RN NOTIFIED DR. RAMOS OF CREATININE 1.45 AND BUN 20. ORDER PLACED BY THIS RN.
[2020-05-11] VITALS (7 sets, daily range): BP systolic 107–134; BP diastolic 64–82
[2020-05-11] MEDS ORDERED: LEVOTHYROXINE 125 MCG (LEVOTHROID) TABLET PO SCH (06:30)
[2020-05-11] MEDS: CATHETER FLUSH 10 ML SYR IV SCH ×2 (06:36→14:25)
[2020-05-11] MEDS: ISOSORBIDE MONONITRATE 30 MG (IMDUR) TAB PO SCH (06:36)
--- NOTE | 2020-05-11 08:17 | Discharge Summary ---
Diagnosis/Chief Complaint Date of Admission May 09, 2020 at 12:26 Date of Discharge Admission Diagnosis A-fib with RVR Primary Care Russ Avalos MD Discharge Summary Procedures/Consulations Dr Marie- Cardiology Discharge Physical Exam Allergies: Coded Allergies: Penicillins (Verified Allergy, Unknown, RASH, HAS HAD ROCEPHIN IN THE PAST W/O ISSUE, 09/27/16) clarithromycin (Verified Allergy, Unknown, 09/27/16) erythromycin base (Verified Allergy, Unknown, 09/27/16) levofloxacin (Verified Allergy, Unknown, 09/04/17) morphine (Verified Allergy, Unknown, TAKES LORTAB AT HOME, 09/27/16) Vitals & I&Os Vital Signs Date Time Temp Pulse Resp B/P (MAP) Pulse Ox O2 Delivery O2 Flow Rate FiO2 05/11/20 16:30 36.7 87 18 134/80 97 Room Air 05/09/20 23:54 2.00 05/09/20 23:51 21 General Appearance: No Apparent Distress, WD/WN Respiratory: Lungs Clear, No Respiratory Distress Cardiovascular: No Murmur, Irregularly Irregular Neurologic/Psychiatric: Alert, Oriented x3 Hospital Course Pt was admitted due to atrial fibrillation and chest pain. She was able to get her rate controlled with just oral medications and did well. She underwent stress testing which was negative. She was discharged home in stable condition. She had recently returned from [place] and was short of breath so COVID testing was done and was negative. Labs (last 24 hrs) Patient resulted labs reviewed. Pending Labs Imaging: Reviewed Imaging Report Discussion & Recommendations Discharge Planning: >30 minutes discharge planning Discharge Home Medications: Active Scripts Active Magnesium Oxide 400 Mg Tablet 400 Mg PO BID Requip (Ropinirole HCl) 0.25 Mg Tab 0.25 Mg PO HS PRN Furosemide 20 Mg Tablet 10 Mg PO DAILY Duloxetine HCl 30 Mg Capsule.dr 60 Mg PO DAILY TAKES 2 (30MG) CAPS DAILY Voltaren (Diclofenac Sodium) 100 Gm Gel..gram. 2 Gm TP QID PRN Allopurinol 300 Mg Tablet 300 Mg PO DAILY Ibandronate Sodium 150 Mg Tablet 150 Mg PO MONTHLY Levothyroxine Sodium 125 Mcg Tablet 125 Mcg PO DAILY Xarelto Tablet (Rivaroxaban) 20 Mg Tablet 20 Mg PO DAILY Multaq (Dronedarone HCl) 400 Mg Tablet 400 Mg PO Q12H Reported Ibuprofen 800 Mg Tablet 800 Mg PO Q8H PRN Bystolic (Nebivolol HCl) 2.5 Mg Tablet 2.5 Mg PO DAILY Rosuvastatin Calcium 40 Mg Tablet 40 Mg PO HS Instructions to patient/family Please see electronic discharge instructions given to patient. Clinical Quality Measures DVT/VTE Risk/Contraindication: Risk Factor Score Per Nursin RFS Level Per Nursing on Admit: 2=Moderate STAN LEON MD May 11, 2020 08:17
[2020-05-11] MEDS ORDERED: RPN.25T PO (08:24)
[2020-05-11] MEDS ORDERED: DICL100G18 TP (08:24)
[2020-05-11] MEDS ORDERED: DRON400T2 PO (08:24)
[2020-05-11] MEDS ORDERED: IBAN150T21 PO (08:24)
[2020-05-11] MEDS ORDERED: ALLO300T2 PO (08:24)
[2020-05-11] MEDS ORDERED: RIVA20TA2 PO (08:24)
[2020-05-11] MEDS ORDERED: FURO20TA4 PO (08:24)
[2020-05-11] MEDS ORDERED: ISOS30TA3 PO (08:24)
[2020-05-11] MEDS ORDERED: DULO30CA49 PO (08:24)
[2020-05-11] MEDS ORDERED: LEVO125T6 PO (08:24)
--- NOTE | 2020-05-11 08:28 | Discharge Inst-Simple/Standard ---
Discharge Inst-Standard Discharge Medications New, Converted or Re-Newed RX: Transmitted to Pharmacy Patient Instructions/Follow Up Plan of Care/Instructions/FU: Please continue to take your medications as written. Please follow up with a primary care doctor to follow up this hospital stay and follow up with Dr Russell. Activity as Tolerated: Yes Discharge Diet: Cardiac Diet Return to The Hospital For: Chest pain, shortness of breath, weakness, heart racing, fever, if you feel you are getting worse. Planned Outpatient Orders/Ref. Pneu Vac Indicated: Yes STAN LEON MD May 11, 2020 08:28
[2020-05-11 08:29] LABS: CALCIUM 9.2 MG/DL (8.5-10.1); CREATININE SERUM 1.38 MG/DL (0.60-1.30); POTASSIUM 4.7 MMOL/L (3.6-5.0)
[2020-05-11] MEDS: DRONEDARONE TABLET 400 MG TABLET PO SCH (08:38)
[2020-05-11] MEDS: ASPIRIN E.C. 81 MG (ECOTRIN) TAB PO SCH (08:38)
[2020-05-11] MEDS: CARVEDILOL 6.25 MG (COREG) TAB PO SCH (08:39)
[2020-05-11] MEDS ORDERED: MAGN400T7 PO (08:51)
[2020-05-11] MEDS ORDERED: MAGNESIUM OXIDE (MAG-OX)400 MG TAB PO ONE (09:00)
[2020-05-11] MEDS ORDERED: ALLOPURINOL 300 MG (ZYLOPRIM) TAB PO SCH (09:00)
[2020-05-11] MEDS ORDERED: DULoxetine 30 MG (CYMBALTA) CAP PO SCH (09:00)
--- NOTE | 2020-05-11 18:30 | Cardiology Progress Note ---
Cardiology SOAP Progress Note Subjective: No cardiac complaints. Objective: I&O/Vital Signs 05/11/20 05/11/20 05/11/20 05/11/20 06:41 06:48 08:00 08:00 Temp 36.7 Pulse 91 71 Resp 18 B/P (MAP) 134/82 (99) 113/64 (80) Pulse Ox 98 O2 Delivery Room Air Room Air 05/11/20 05/11/20 05/11/20 05/11/20 09:00 12:00 12:40 16:00 Temp 36.7 36.7 Pulse 95 87 Resp 22 18 B/P (MAP) 124/80 (95) 134/80 (98) Pulse Ox 94 97 O2 Delivery Room Air Room Air Room Air Room Air 05/11/20 00:00 Intake Total 1725 ml Output Total 500 ml Balance 1225 ml Weight (Pounds): 160 Weight (Ounces): 4.0 Weight (Calculated Kilograms): 72.248920 Constitutional: appears stated age; No apparent distress; well-developed, well- nourished Respiratory: chest is bilaterally symmetric, lungs clear to auscultation Cardiovascular: regular rate-rhythm, S1 and S2 Gastrointestional: soft, audible bowel sounds; No spleenomegaly Extremities: normal range of motion, non-tender, normal inspection; No clubbing, No cyanosis; no lower extremity edema bilateral; No significant edema Neurologic/Psychiatric: no motor/sensory deficits, alert, normal mood/affect, oriented x 3, power is 5/5 both on sides Skin: normal color, warm/dry; No rash, No ulcerations Results/Procedures: Labs Laboratory Tests 05/11/20 08:00: Sodium Level 141, Potassium Level 4.7, Chloride Level 102, Carbon Dioxide Level 29, Anion Gap 10, Blood Urea Nitrogen 29H, Creatinine 1.38H, Estimat Glomerular Filtration Rate 37, BUN/Creatinine Ratio 21, Glucose Level 117H, Calcium Level 9.2 A/P: Assessment/Dx: Chest pain, Proximal atrial fibrillation, History of CAD/CABG, Hypertension, Chronic kidney disease Plan: Chest pain, unstable angina, probably secondary to tachycardia, no acute ischemic changes, serial troponin negative. Nuclear stress test done 05/10/2020 showed no evidence of ischemia or infarction. Can be discharged to follow-up with Dr. Russell. Shortness of breath, worsening recently, has been in [place] for the past 3 months, returned last week, no fever or chills. No cough. COVID negative. Supraventricular tachycardia, probably atrial fibrillation or flutter, heart rate 152 with narrow complex, no acute ischemic changes. Atrial fibrillation. Converted to sinus rhythm. Well controlled. Coronary artery disease, history of CABG 3 done in 2006. Cardiac catheterization was done in February 2014 showing patent LUNA to the LAD, 60 percent stenosis at the distal portion of the LUNA. The proximal LAD has 90 percent stenosis with good flow supply to the LAD system. The vein graft to the obtuse marginal branch is patent with excellent flow distally and the vein graft to the right coronary artery is patent with excellent flow distally. Normal left ventricular size and systolic function. Most recent stress test, 2-D echocardiogram done January 2018 within normal limits. Sending her to the emergency room will evaluate cardiac enzymes History of frequent premature ventricular contractions. Patient has episodes of frequent paroxysmal atrial tachycardia with wide-complex tachycardia, sees Dr. Miller at [facility]. She is status post Linq implantation that has been followed by Dr. Miller, it was extracted by Dr. Bedolla. Has been doing well. Continue to monitorat the same time, most recent EKG revealed normal QT. Continue to monitor Hypertension, monitor blood pressure Hyperlipidemia, evaluate lipid profile History of carotid stenosis. Left carotid endarterectomy. Last ultrasound report showed moderate disease in the right carotid artery, more significant disease on the left side. Followed and managed by heart and vascular care. Continue to monitor. History of dizziness and lightheadedness. Reporting improvement. Continue to monitor. COPD, probably acute exacerbation at this time, followed and managed by Dr. Rodríguez. History of renal failure Hypothyroidism followed and managed by primary care physician. Chronic renal insufficiency, patient is following with Dr. Erica Meza Patient can be discharged from a cardiac perspective and follow up outpatient with Dr. Russell. Thank you for your consultation. Please call me if you have any questions. Sissy Marie MD, FACP, FACC, FSCAI, FHRS, CCDS Interventional Cardiology Cardiac Electrophysiology Vascular Medicine and Endovascular Interventions Cale MARIE MD May 11, 2020 18:30
== END 2020-05-11 16:30 | disposition home or self-care (01) ==
LOC: EDUNIT# 10:51 → ER 10:52 → CSD 12:26
PROVIDERS: ADMIT Family Medicine; ATTEND Family Medicine
DX: I48.91 Unspecified atrial fibrillation (principal); I13.0 Hypertensive heart and chronic kidney disease with heart failure and stage 1 through stage 4 chronic kidney disease, or unspecified chronic kidney disease; I50.9 Heart failure, unspecified; N18.9 Chronic kidney disease, unspecified; J44.9 Chronic obstructive pulmonary disease, unspecified; I36.1 Nonrheumatic tricuspid (valve) insufficiency; I25.10 Atherosclerotic heart disease of native coronary artery without angina pectoris; N39.0 Urinary tract infection, site not specified; K21.9 Gastro-esophageal reflux disease without esophagitis; M19.90 Unspecified osteoarthritis, unspecified site; M81.0 Age-related osteoporosis without current pathological fracture; E03.9 Hypothyroidism, unspecified; F32.9 Major depressive disorder, single episode, unspecified; Z79.899 Other long term (current) drug therapy; Z88.0 Allergy status to penicillin; Z88.5 Allergy status to narcotic agent; Z88.1 Allergy status to other antibiotic agents; Z88.8 Allergy status to other drugs, medicaments and biological substances; Z90.710 Acquired absence of both cervix and uterus; Z95.1 Presence of aortocoronary bypass graft; Z87.891 Personal history of nicotine dependence; Z86.73 Personal history of transient ischemic attack (TIA), and cerebral infarction without residual deficits; Z20.828 Contact with and (suspected) exposure to other viral communicable diseases
CPT/HCPCS: 71045; 78452; 80048; 80053 ×2; 80061; 83735; 83874; 83880; 84145; 84443; 84484; 85007; 85025; 85027; 85379; 85610; 85730; 93005 ×2; 93017; 93041; 93306; 94760; 99284; A9502; G0378; U0002; 36415; 87635; 96360

== ENCOUNTER → 2020-05-30 | Outpatient (CLI) | payer MEDICARE, OTHER ==
[~2020-05-30] MED LIST changes: +ALLO300T2 PO; +DICL100G18 TP; +DULO30CA49 PO; +IBAN150T21 PO; +IBUP-1780 PO; +LEVO125T6 PO; +MAGN400T7 PO; +NF-DICLOTA PO; +ROSU40TA23 PO; +RPN.25T PO
== END ==
LOC: RT 10:24
PROVIDERS: ATTEND Nurse Practitioner Family
DX: J98.4 Other disorders of lung (principal); I48.91 Unspecified atrial fibrillation; G47.34 Idiopathic sleep related nonobstructive alveolar hypoventilation; G47.36 Sleep related hypoventilation in conditions classified elsewhere; G47.8 Other sleep disorders
CPT/HCPCS: 94060; 94726; 94729

== ENCOUNTER → 2020-06-02 | Outpatient (CLI) | payer MEDICARE, OTHER | LOC: LABNPT 07:56 | PROVIDERS: ATTEND Nurse Practitioner Family | DX: Z01.812 Encounter for preprocedural laboratory examination (principal); Z53.9 Procedure and treatment not carried out, unspecified reason ==

== ENCOUNTER → 2020-11-10 | Outpatient (CLI) | payer MEDICARE, OTHER ==
--- NOTE | 2020-11-10 14:17 | Diagnostic Imaging Report ---
EXAMINATION: CT Abdomen Pelvis without contrast. TECHNIQUE: Multiple contiguous axial images were obtained through the abdomen and pelvis without the use of intravenous contrast. All CT scans use one or more of the following dose optimizing techniques: automated exposure control, MA and/or KvP adjustment based on a patient size and exam type, or iterative reconstruction. HISTORY: CALCULUS OF KIDNEY COMPARISON: 03/06/2007. FINDINGS: Limited views of the lower thorax show mild atelectasis and coronary artery calcifications. The liver is normal without focal lesion. There is no biliary ductal dilation. Gallbladder is normal. Pancreas is normal. Spleen is normal. Adrenal glands are normal. A 3 x 5 mm calculus is seen in the lower pole of the right kidney. There are bilateral renal vascular calcifications in the cheri. No ureteral stones. No suspicious renal lesions. There is no hydronephrosis. Urinary bladder is normal. Visualized bowel is normal in caliber without obstruction or inflammation. There has been a gastric bypass. There is a fat-containing ventral hernia in the upper abdomen. No free fluid or air. No abdominal or pelvic lymphadenopathy. Aorta is normal in caliber without aneurysm. There are no suspicious osseous lesions. There is right hip arthroplasty and left femoral neck fixation. Old rib fractures are healed. IMPRESSION: 1. Nonobstructing right lower pole renal stone, no ureteral stones. Dictated by: Dictated on workstation # [id number]
== END ==
LOC: RAD 13:45
PROVIDERS: ATTEND Internal Medicine
DX: N20.0 Calculus of kidney (principal)
CPT/HCPCS: 74176

== ENCOUNTER → 2020-12-28 | Outpatient (CLI) | payer MEDICARE, OTHER ==
[~2020-12-28] MED LIST changes: +ACET-2267 PO; +AMIO200T6 PO; +CHOL500050 PO; +CRAN500T2 PO; +DULO60CA59 PO; +FERR-84 PO; +IBAN150T16 PO; +ISOS30TA82 PO; +LEVO125C4 PO; +MONT10TA32 PO; +MULT-1136 PO; +RIVA20TA PO; +ROSU40TA PO
== END ==
LOC: LAB 13:40
PROVIDERS: ATTEND Internal Medicine Cardiovascular Disease
DX: I25.10 Atherosclerotic heart disease of native coronary artery without angina pectoris (principal); I48.0 Paroxysmal atrial fibrillation

== ENCOUNTER 2021-01-02 08:14 | Day surgery (SDC) | payer MEDICARE, OTHER ==
[2020-12-28 14:08] VITALS: BP 167/81
[2020-12-28 14:17] LABS: HEMOGLOBIN 11.6 g/dL (11.5-16.0); MEAN PLATELET VOLUME 9.6 fL (9.0-12.2); WHITE BLOOD COUNT 6.6 10^3/uL (4.3-11.0)
--- NOTE | 2020-12-28 14:25 | Diagnostic Imaging Report ---
Indication: Chest pain, shortness of breath Portable chest 2:08 PM There are postoperative changes from CABG surgery. Heart size and pulmonary vascularity are normal. There are no infiltrates, effusions or pneumothoraces. IMPRESSION: No acute abnormalities in the chest. Dictated by: Dictated on workstation # [id number]
[2020-12-28 14:33] LABS: INR 2.5 (0.8-1.4); PROTHROMBIN TIME PATIENT 27.4 SEC (12.2-14.7)
[2020-12-28 14:40] LABS: ALBUMIN 4.3 GM/DL (3.2-4.5); BILIRUBIN,TOTAL 0.6 MG/DL (0.1-1.0); CALCIUM 9.9 MG/DL (8.5-10.1); CREATININE SERUM 1.26 MG/DL (0.60-1.30); POTASSIUM 3.8 MMOL/L (3.6-5.0); TOTAL PROTEIN 7.4 GM/DL (6.4-8.2)
[2021-01-02] VITALS (9 sets, daily range): BP systolic 101–142; BP diastolic 58–69
[~2021-01-02] VITALS: Ht 160 cm; Wt 94.5 kg
[~2021-01-02 08:14] MED LIST changes: +HEParin (CATH LAB) 0 ML IV ONE; +LIDOCAINE 1% INJ 20 ML 20 ML VIAL ONE; +MIDAZOLAM 5 MG/5 ML (VERSED) VIAL ONE; +NS IV 1000 ML 0 ML ONE; +NS IV 1000 ML 1,000 ML IV SCH; +fentaNYL INJECTION 100 MCG/2 ML AMP ONE
[2021-01-02] MEDS ORDERED: LIDOCAINE 1% INJ 20 ML 20 ML VIAL ONE (08:18)
[2021-01-02] MEDS ORDERED: HEParin (CATH LAB) 2,000 ML IV ONE (08:18)
[2021-01-02] MEDS ORDERED: NS IV 1000 ML 1,000 ML ONE (08:18)
[2021-01-02] MEDS ORDERED: NS IV 1000 ML 1,000 ML IV SCH ×2 (08:30→10:45)
[2021-01-02] MEDS ORDERED: MIDAZOLAM 5 MG/5 ML (VERSED) VIAL ONE (08:38)
[2021-01-02] MEDS ORDERED: fentaNYL INJECTION 100 MCG/2 ML AMP ONE (08:39)
--- NOTE | 2021-01-02 09:54 | Cardiac Procedure Note-CS/ASA ---
Pre-Procedure Note Pre-Op Procedure Note H&P Reviewed The H&P was reviewed, patient examined and no changes noted. Date H&P Reviewed: Jan 02, 2021 Time H&P Reviewed: 09:54 Conscious Sedation Pre-Proced Time 09:54 ASA Score 3 For ASA 3 and 4: Consider anesthesia and medical clearance. Also, for patients with a history of failed moderate sedation consider anesthesia. Airway Lungs Heart ASA score ASA 1: a normal healthy patient ASA 2: a patient with a mild systemic disease (mid diabetes, controlled hypertension, obesity x ASA 3: a patient with a severe systemic disease that limits activity (angina, COPD, prior Myocardial infarction) ASA 4: a patient with an incapacitating disease that is a constant threat to life (CHF, renal failure) ASA 5: a moribund patient not expected to survive 24 hrs. (ruptured aneurysm) ASA 6: a declared brain- patient whose organs are being harvested. For emergent operations, add the letter E after the classification Mallampati Classification Grade 3 Sedation Plan Analgesia, Amnesia, Plan communicated to team members, Discussed options with patient/fam, Discussed risks with patient/fam The patient is an appropriate candidate to undergo the planned procedure, sedation, and anesthesia. The patient immediately re-assessed prior to indication. DARSHAN SEGUNDO MD Jan 02, 2021 09:54
--- NOTE | 2021-01-02 10:40 | Discharge Inst-Post CATH ---
Discharge Inst-CATH/EP Problems Reviewed?: Yes Post Cardiac Cath/EP D/C Inst Follow Up/Plan Appointment with Dr. Russell's office in 4-6 weeks <b>CARDIAC CATH/EP PROCEDURE DISCHARGE INSTRUCTIONS</b> ACTIVITY * Go Home directly and rest. * Limit activity of the leg (or wrist if it was used) for 7 days including aerobics, swimming, jogging, bicycling, etc. * Restrict stair-climbing for 7 days if possible, if not, climb up with your non-cath leg, then bring together on the same step. * Avoid lifting, pushing, pulling or excessive movement of the affected extremity for 7 days. * Customary sexual activity may be resumed after 2 days-use caution not to use a position that strains or causes pain to the affected extremity. * No driving for 24 hours. * NO SMOKING. * Avoid straining for bowel movements for 7 days. * Gentle walking on level ground is allowed. * Returning to work will depend on the type of procedure and the results. Your doctor will discuss this with you. CALL YOUR DOCTOR FOR ANY OF THE FOLLOWING: *If bleeding from the puncture site occurs- Apply gentle pressure to site with clean cloth and call your doctor or EMS. * If a knot or lump forms under the skin, increases in size, or causes pain. * If bruising appears to be worsening or moving further down your leg instead of disappearing. * Temperature above 101 F. CARE OF YOUR GROIN INCISION; * Bruising or purple discoloration of the skin near the puncture site is common. * You may shower only, no bathtub bathing for 5 days. Be careful to avoid slipping as your leg may feel stiff. * If a closure device was used on your femoral artery, please see the attached guide regarding care of the device and your leg. * Leave dressing on FOR 24 hours. CARE OF YOUR WRIST INCISION; * Bruising or purple discoloration of the skin near the puncture site is common. * You may shower. * DO NOT submerge wrist. * Leave dressing on FOR 24 hours. DARSHAN RUSSELL MD Jan 02, 2021 10:40 am
[2021-01-02] MEDS ORDERED: PATIENT MAY USE OWN MEDS, ALL PO SCH (10:45)
--- NOTE | 2021-01-02 10:50 | Cardiac Cath Report ---
Cardiac Cath Report Physician (s)/Concrete Form Setter (s) Physician DARSHAN SEGUNDO MD Pre-Procedure Diagnosis Pre-Procedure Diagnosis: shortness of breath Post-Procedure Note Procedure Start Date: Jan 02, 2021 Name of Procedure: Left heart catheterization Left ventriculogram Vein graft angiogram LUNA angiogram Abdominal aortogram Findings/Procedure Note PROCEDURE NOTE: 75-year-old lady with history of coronary artery disease, CABG, had baseline abnormal stress test, has been having increasing shortness of breath scheduled for cardiac catheterization possible PTCA After explaining the procedure to the patient, all pros and cons were explained, all questions were answered. The patient signed the consent and then she was placed on the cardiac catheterization laboratory. Groin was prepped SL fashion local anesthesia was used. Sheath placed in the right femoral artery. I had difficulty advancing the J-wire through the right common iliac artery, used a stork wire and continue to use exchange wire during the procedure, Yuliya right and left catheter were used to access the coronary system.Vein Graft evaluated. LUNA evaluated. Pigtail was used to access the left ventricular cavity. Left ventriculogram was done Aortic abdominal angiogram was done At the end of the procedure the sheath was removed. Closure device was deployed FINDINGS: Hemodynamics LV 138/27, end diastolic pressure 27 Aorta 135/66 mean of 94 ANATOMY: Left Main is free of obstructive disease Left Anterior Descending has moderate to severe disease at the mid portion, competitive flow from the LUNA with patent LUNA. Left Circumflex is occluded proximally, vein graft to the obtuse marginal branch is patent with 60 percent stenosis at the midportion followed by aneurysmal dilatation in the midportion of the vein graft. Right Coronory Artery is occluded, vein graft to the right coronary artery is patent LUNA is patent with good flow distally, competitive flow from the [place] LAD Vein Graft evaluation showed 2 vein grafts Vein graft to the obtuse marginal branch is patent with excellent flow distally, there is an area of moderate stenosis in the mid vein graft followed by aneur ysmal dilatation, does not appear to be obstructive disease Vein graft to the right PDA is patent with small vessel disease distally LV Gram was done showing preserved left ventricular systolic function, ejection fraction 50 percent Aorta valuation done with abdominal aortic angiogram showed atherosclerotic plaques in the abdominal aorta, right and left renal arteries are normal, SMA and CECIL are normal, the right common iliac artery has moderate stenosis at the ostium, the gradient was 10 mmHg CONCLUSION: 1. Patent LUNA to LAD, vein graft to the right coronary artery. The vein graft to the obtuse marginal branch has moderate stenosis at an area followed by aneurysmal dilatation. There is good flow in the obtuse marginal branch. 2. Occluded right femoral circumflex artery corrected by the vein graft 3. Occluded proximal right coronary artery corrected by the vein graft to the right PDA was small vessel disease distally 4. Severe mid LAD stenosis corrected with the LUNA with dual supply to the LAD territory 5. Normal LV size and systolic function, ejection fraction 50 percent, elevated left ventricular end-diastolic pressure due to diastolic dysfunction 6. Normal abdominal aorta with hypertensive changes, moderate stenosis of the ostium in the right common iliac artery DISCUSSION AND RECOMMENDATION: Maximize medical therapy, add diuretics as needed Anesthesia Type: Conscious Sedation Estimated blood loss (mL): 35 ml Contrast Amount: 97 ml Total Radiation Dose: 1240 mGy Post-Procedure Diagnosis Post-operative diagnosis: Shortness of breath Coronary artery disease Hypertension Hyperlipidemia DARSHAN SEGUNDO MD Jan 02, 2021 10:50 am
== END 2021-01-02 14:56 | disposition home or self-care (01) ==
LOC: CATH 08:14 → SDC 10:41 → CATH 14:56
PROVIDERS: ATTEND Internal Medicine Cardiovascular Disease
DX: I25.10 Atherosclerotic heart disease of native coronary artery without angina pectoris (principal); I25.710 Atherosclerosis of autologous vein coronary artery bypass graft(s) with unstable angina pectoris; J44.9 Chronic obstructive pulmonary disease, unspecified; I12.9 Hypertensive chronic kidney disease with stage 1 through stage 4 chronic kidney disease, or unspecified chronic kidney disease; N18.9 Chronic kidney disease, unspecified; E78.2 Mixed hyperlipidemia; E03.9 Hypothyroidism, unspecified; I47.1 Supraventricular tachycardia; I65.23 Occlusion and stenosis of bilateral carotid arteries; Z95.1 Presence of aortocoronary bypass graft; Z96.641 Presence of right artificial hip joint; Z87.891 Personal history of nicotine dependence; Z98.890 Other specified postprocedural states; Z86.69 Personal history of other diseases of the nervous system and sense organs; Z79.890 Hormone replacement therapy; Z88.1 Allergy status to other antibiotic agents; Z88.5 Allergy status to narcotic agent; Z79.899 Other long term (current) drug therapy; Z99.81 Dependence on supplemental oxygen; Z83.3 Family history of diabetes mellitus; Z88.0 Allergy status to penicillin
CPT/HCPCS: 71045; 75625; 80053; 80061; 85027; 85610; 85730; 87081; 93459; C1760; C1769; C1894; 36415

== ENCOUNTER → 2021-02-10 | Outpatient (CLI) | payer MEDICARE, OTHER ==
[~2021-02-10] MED LIST changes: -HEParin (CATH LAB) 0 ML IV ONE; -LIDOCAINE 1% INJ 20 ML 20 ML VIAL ONE; -MIDAZOLAM 5 MG/5 ML (VERSED) VIAL ONE; -NS IV 1000 ML 0 ML ONE; -NS IV 1000 ML 1,000 ML IV SCH; -fentaNYL INJECTION 100 MCG/2 ML AMP ONE
--- NOTE | 2021-02-10 12:01 | Diagnostic Imaging Report ---
EXAM: CT chest without intravenous contrast with high-resolution images. TECHNIQUE: Axial noncontrast CT images of the chest were obtained with typical protocol with the separately performed thin section high-resolution protocol noncontrast axial images of the chest in prone and supine positioning. DATE: February 10, 2021. COMPARISON: Chest radiograph December 28, 2020. CT chest July 01, 2020. INDICATION: 75-year-old female, shortness of breath. PROCEDURE: Axial noncontrasted CT images of the chest. Noncontrasted limits the evaluation of the mediastinum and vascular structures. FINDINGS: There is no identified pulmonary nodule. There is no lung mass. There is no pneumothorax. There is no pleural effusion. There are peripheral reticular opacities dependently located which do not resolve on prone positioning and are consistent with scarring. At least some components of scarring in the lung bases are similar to July 01, 2020; however, overall, there is a progression of chronic lung changes since July 01, 2020. There are additional peripheral predominantly linear opacities compatible with scarring. There is some mosaic lung attenuation in scattered areas of air trapping. There is no peripheral honeycombing. There is no traction bronchiectasis. There is no otherwise noted focal airspace consolidation. The trachea is normal in caliber. The heart is not enlarged. There are coronary artery calcifications and additional areas of atherosclerotic disease. There is no pericardial effusion. There is no abnormally enlarged mediastinal or axillary lymph node meeting CT size criteria for adenopathy. There is a low-attenuation left renal lesion on axial image 122 which measures 1.7 cm in size with internal attenuation diagnostic for a benign cyst. There are postoperative changes of the stomach. There is a small accessory splenule. There are multilevel degenerative changes of the spine. There are median sternotomy wires. There are chronic bilateral rib deformities. There is an incompletely imaged glenohumeral arthritis bilaterally. There are anchors in the right humeral head. There is a compression deformity of T4 with approximately 50% height loss centrally with no visible fracture line. This is unchanged since at least July 01, 2020. IMPRESSION: 1. Multifocal peripheral scarring in the lungs bilaterally with patchy areas of air trapping. Imaging findings to not meet the specific diagnostic criteria for definite diagnosis of UIP. Fibrotic NSIP and UIP are both in the differential diagnosis. There is some scarring in the lower lobes on July 01, 2020; however, there is a [id number] overall progression of chronic lung changes since July 01, 2020. 2. No identified acute cardiopulmonary abnormality. Dictated by: Dictated on workstation # [id number]
== END ==
LOC: RAD 10:15
PROVIDERS: ATTEND Nurse Practitioner Family
DX: J44.9 Chronic obstructive pulmonary disease, unspecified (principal); Z98.890 Other specified postprocedural states
CPT/HCPCS: 71250

== ENCOUNTER → 2021-07-12 | Outpatient (CLI) | payer MEDICARE, OTHER ==
[~2021-07-12] MED LIST changes: -CRAN500T2 PO; +CRAN500T3 PO; -DRON400T2 PO; +DRON400T6 PO; +RT-ALBUTEROL SULF 2.5 MG/3 ML PRE-MIX VIAL INH ONE
--- NOTE | 2021-07-12 15:17 | Diagnostic Imaging Report ---
PROCEDURE: CT chest without contrast. TECHNIQUE: Multiple contiguous axial images were obtained through the chest without the use of intravenous contrast. Auto Exposure Controls were utilized during the CT exam to meet ALARA standards for radiation dose reduction. INDICATION: Abnormal finding of lung joshua. COMPARISON: 02/20/2021. FINDINGS: Predominantly subpleural interstitial markings are again seen throughout the lung joshua. Minimal scattered areas of groundglass density are somewhat improved when compared to previous study. There is no evidence of focal infiltrate or new mass. Note is made of healed bilateral rib fractures and previous median sternotomy. Images through the upper abdomen reveal a nonobstructing stone in the lower pole of the right kidney reaching 0.6 cm in size. Probable cortical cyst is seen in the superior pole of the left kidney reaching 1.5 cm in diameter. IMPRESSION: Findings remain most suggestive of subpleural septal thickening and interstitial scarring without evidence of progression or new thoracic abnormality. Dictated by: Dictated on workstation # [id number]
== END ==
LOC: RT 13:00
PROVIDERS: ATTEND Nurse Practitioner Family
DX: R91.8 Other nonspecific abnormal finding of lung field (principal)
CPT/HCPCS: 71250; 94060; 94726; 94729

== ENCOUNTER 2021-09-29 10:29 | Outpatient (RCR) | payer MEDICARE, OTHER ==
[~2021-09-29 10:29] MED LIST changes: -AMIO200T6 PO; +AMIO200T65 PO; -LEVO500T80 PO; +LEVO500T81 PO; +MONT-40 PO; -MONT10TA32 PO; -POTA10TA36 PO; +POTA10TA37 PO; -RT-ALBUTEROL SULF 2.5 MG/3 ML PRE-MIX VIAL INH ONE
[2021-10-06] MEDS ORDERED: FURO-124 PO (11:29)
[2021-10-06] MEDS ORDERED: ROSU20TA2 PO (11:29)
[2021-10-06] MEDS ORDERED: HYDR-3820 PO (11:29)
[2021-10-06] MEDS ORDERED: BUDE10.2 IH (11:29)
[2021-10-06] MEDS ORDERED: LEVO125T6 PO (11:29)
[2021-10-06] MEDS ORDERED: MAGN400T39 PO (11:29)
[2021-10-06] MEDS ORDERED: DICL20GE TP (11:29)
[2021-10-06] MEDS ORDERED: NEBI5TAB11 PO (11:30)
[2021-10-06] MEDS ORDERED: LEVO112T55 PO (12:00)
[2021-10-06] MEDS ORDERED: POTA10TA PO (13:46)
== END 2021-10-23 14:43 | disposition home or self-care (01) ==
PROVIDERS: ATTEND Nurse Practitioner Family
DX: M54.50 Low back pain, unspecified (principal); J98.4 Other disorders of lung; R06.02 Shortness of breath; I10 Essential (primary) hypertension
CPT/HCPCS: 97161; G0283

== ENCOUNTER 2021-10-05 15:46 | Observation (INO) | payer MEDICARE, OTHER ==
[~2021-10-05] VITALS: Ht 160.2 cm; Wt 90.0 kg
[2021-10-05] MEDS ORDERED: RIVAROXABAN 20 MG TABLET (XARELTO) PO SCH (17:00)
[2021-10-05] MEDS ORDERED: ALLOPURINOL 300 MG (ZYLOPRIM) TAB PO SCH (18:00)
--- NOTE | 2021-10-05 18:40 | Tele-ICU Progress Note ---
Progress Note Video assessment done , Hemodynamically stable , labs pendfing Available charting reviewed NO TELE-ICU CONSULT REQUESTED CONTINUE TO MONITOR PER USUAL TELE-ICU PROTOCOL No need for Tele-ICU interventions Plans as delineated by bedside physicians / consultants Focused Exam Height, Weight, BMI Height: 5'4.00" Weight: 160lbs. 4.0oz. 72.310004fs; 35.02 BMI Method:Estimated EMMA SCHNEIDER MD Oct 05, 2021 18:40
[2021-10-05] MEDS ORDERED: TEMAZEPAM 7.5 MG CAP (RESTORIL) PO PRN (19:15)
[2021-10-05 20:47] LABS: POTASSIUM 3.2 MMOL/L (3.6-5.0)
[2021-10-05 20:48] LABS: CALCIUM 9.6 MG/DL (8.5-10.1)
[2021-10-05 20:53] LABS: CREATININE SERUM 1.24 MG/DL (0.60-1.30)
[2021-10-05 20:55] LABS: MAGNESIUM 1.7 MG/DL (1.6-2.4)
[2021-10-05] MEDS ORDERED: ROSUVASTATIN 20 MG (CRESTOR) TABLET PO SCH (21:00)
[2021-10-05] MEDS ORDERED: SOTALOL 80 MG (BETAPACE) TAB PO SCH (21:00)
[2021-10-05] MEDS ORDERED: KCL 20 MEQ TAB (K-DUR) PO ONE (21:15)
[2021-10-06 04:45] LABS: HEMATOCRIT 32 % (35-52); MEAN CORPUSCULAR HEMOGLOBIN 31 pg (25-34); MEAN CORPUSCULAR HGB CONC 31 g/dL (32-36); MEAN CORPUSCULAR VOLUME 98 fL (80-99); MEAN PLATELET VOLUME 9.8 fL (9.0-12.2); PLATELET COUNT 157 10^3/uL (130-400); WHITE BLOOD COUNT 5.4 10^3/uL (4.3-11.0)
[2021-10-06 04:57] LABS: INR 1.6 (0.8-1.4); PROTHROMBIN TIME PATIENT 19.8 SEC (12.2-14.7)
[2021-10-06 05:00] LABS: ALBUMIN 3.6 GM/DL (3.2-4.5); POTASSIUM 3.4 MMOL/L (3.6-5.0)
[2021-10-06 05:01] LABS: CALCIUM 9.6 MG/DL (8.5-10.1)
[2021-10-06 05:02] LABS: TOTAL PROTEIN 6.2 GM/DL (6.4-8.2)
[2021-10-06 05:04] LABS: BILIRUBIN,TOTAL 0.5 MG/DL (0.1-1.0)
[2021-10-06 05:06] LABS: CREATININE SERUM 1.09 MG/DL (0.60-1.30)
[2021-10-06] MEDS ORDERED: LEVOTHYROXINE 112 MCG (LEVOTHROID) TAB PO SCH (06:30)
[2021-10-06] MEDS ORDERED: NS IV 500 ML 500 ML ONE (08:05)
[2021-10-06] MEDS: POTASSIUM CL 10MEQ/50ML IVPB 50 ML IV SCH ×4 (08:10→12:00)
[2021-10-06] MEDS ORDERED: LIDOCAINE 2% VISCOUS 15 ML UDC ONE (08:34)
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
--- NOTE | 2021-10-06 08:35 | Conscious Sedation/ASA ---
Conscious Sedation Pre-Proced Time 08:34 ASA Score 3 For ASA 3 and 4: Consider anesthesia and medical clearance. Also, for patients with a history of failed moderate sedation consider anesthesia. Airway Lungs Heart ASA score ASA 1: a normal healthy patient ASA 2: a patient with a mild systemic disease (mid diabetes, controlled hypertension, obesity x ASA 3: a patient with a severe systemic disease that limits activity (angina, COPD, prior Myocardial infarction) ASA 4: a patient with an incapacitating disease that is a constant threat to life (CHF, renal failure) ASA 5: a moribund patient not expected to survive 24 hrs. (ruptured aneurysm) ASA 6: a declared brain- patient whose organs are being harvested. For emergent operations, add the letter E after the classification Mallampati Classification Grade 3 Sedation Plan Analgesia, Amnesia, Plan communicated to team members, Discussed options with patient/fam, Discussed risks with patient/fam The patient is an appropriate candidate to undergo the planned procedure, sedation, and anesthesia. The patient immediately re-assessed prior to indication. DARSHAN SEGUNDO MD Oct 06, 2021 08:35
[2021-10-06] MEDS ORDERED: FUROSEMIDE 40 MG (LASIX) TAB PO SCH (09:00)
[2021-10-06] MEDS ORDERED: proPOfol 200 MG/20 ML (DIPRIVAN) VIAL IV ONE (10:17)
--- NOTE | 2021-10-06 11:20 | Cardioversion ---
Cardioversion PROCEDURE PHYSICIAN: Darshan Russell DATE OF PROCEDURE: 10/06/21 DIRECT EXTERNAL ELECTRICAL CARDIOVERSION: Indications: Atrial Fibrillation with rapid ventricular rate Preoperative diagnoses: Atrial Fibrillation with rapid ventricular rate Postoperative diagnosis: Atrial fibrillation with rapid ventricular response History: 76-year-old lady with atrial fibrillation, failed multiple medication, underwent NIKKI and possible cardioversion today. Anesthesia: By Anesthesia services Complications: None Specimen: None Contrast: 0 Flouroscopy: none Procedure Details: The patient was brought the bottle labeler after informed consent was taken, all the risks and complications were explained including the risk of stroke. Electrical cardioversion was carried out with anesthesia support with propofol. 200 joules of synchronized shock was delivered through external patches without success in terminating atrial fibrillation, the attempt was done twice without any success subsequently the procedure was aborted Conclusions: Failed electrical cardioversion in terminating atrial fibrillation Final Diagnosis: Persistent atrial fibrillation Palpitation Coronary artery disease Hypertension DARSHAN RUSSELL MD Oct 06, 2021 11:20
--- NOTE | 2021-10-06 11:25 | Anesthesia-General Post-Op ---
MAC Patient Condition Mental Status/LOC: Same as Preop Cardiovascular: Satisfactory Nausea/Vomiting: Absent Respiratory: Satisfactory Pain: Controlled Complications: Absent Post Op Complications Complications None Follow Up Care/Instructions Patient Instructions None needed. Anesthesiology Discharge Order Discharge Order Patient was doing well after the procedure with no complaints, stable vital signs, no apparent adverse anesthesia problems. JULIANNE NEGRO DO Oct 06, 2021 11:25
[2021-10-06] MEDS ORDERED: LEVO125T6 PO (11:29)
[2021-10-06] MEDS ORDERED: FURO-124 PO (11:29)
[2021-10-06] MEDS ORDERED: DICL20GE TP (11:29)
[2021-10-06] MEDS ORDERED: MAGN400T39 PO (11:29)
[2021-10-06] MEDS ORDERED: ROSU20TA2 PO (11:29)
[2021-10-06] MEDS ORDERED: HYDR-3820 PO (11:29)
[2021-10-06] MEDS ORDERED: BUDE10.2 IH (11:29)
[2021-10-06] MEDS ORDERED: NEBI5TAB11 PO (11:30)
[2021-10-06] MEDS ORDERED: ALLOPURINOL 300 MG (ZYLOPRIM) TAB ONE (11:57)
[2021-10-06] MEDS ORDERED: LEVO112T55 PO (12:00)
[2021-10-06] MEDS ORDERED: POTA10TA PO (13:46)
--- NOTE | 2021-10-06 13:46 | Discharge Inst-Post CATH ---
Discharge Inst-CATH/EP Problems Reviewed?: Yes Post Cardiac Cath/EP D/C Inst Follow Up/Plan Appointment with Dr. Russell's office in 2 to 4 weeks <b>CARDIAC CATH/EP PROCEDURE DISCHARGE INSTRUCTIONS</b> ACTIVITY * Go Home directly and rest. * Limit activity of the leg (or wrist if it was used) for 7 days including aer obics, swimming, jogging, bicycling, etc. * Restrict stair-climbing for 7 days if possible, if not, climb up with your non-cath leg, then bring together on the same step. * Avoid lifting, pushing, pulling or excessive movement of the affected extremi ty for 7 days. * Customary sexual activity may be resumed after 2 days-use caution not to use a position that strains or causes pain to the affected extremity. * No driving for 24 hours. * NO SMOKING. * Avoid straining for bowel movements for 7 days. * Gentle walking on level ground is allowed. * Returning to work will depend on the type of procedure and the results. Your doctor will discuss this with you. CALL YOUR DOCTOR FOR ANY OF THE FOLLOWING: *If bleeding from the puncture site occurs- Apply gentle pressure to site with clean cloth and call your doctor or EMS. * If a knot or lump forms under the skin, increases in size, or causes pain. * If bruising appears to be worsening or moving further down your leg instead of disappearing. * Temperature above 101 F. CARE OF YOUR GROIN INCISION; * Bruising or purple discoloration of the skin near the puncture site is common. * You may shower only, no bathtub bathing for 5 days. Be careful to avoid slipping as your leg may feel stiff. * If a closure device was used on your femoral artery, please see the attached guide regarding care of the device and your leg. * Leave dressing on FOR 24 hours. CARE OF YOUR WRIST INCISION; * Bruising or purple discoloration of the skin near the puncture site is common. * You may shower. * DO NOT submerge wrist. * Leave dressing on FOR 24 hours. DARSHAN RUSSELL MD Oct 06, 2021 13:45
--- NOTE | 2021-10-06 17:34 | Consultation ---
ANTONIO HERNANDEZ 10/06/21 1734: HPI History of Present Illness: HPI/Chief Complaint Consult per Dr. Russell. Patient is a 76 year old female that is known to Dr. Sexton. Patient has a history of atrial fibrillation that is resistant to multiple anti-arrhythmics. Patient is being admitted today for a NIKKI, possible cardioversion, and sotalol treatment. Patient has a history of CAD, hypertension, hyperlipidemia, COPD. Source: patient, RN/MD (notes) Date Seen 10/06/21 Attending Physician Ruth Russell MD PCP Mildred Bernardo Aprn Referring Physician Dr. Russell Date of Admission Oct 05, 2021 at 16:39 Home Medications & Allergies Home Medications Reviewed patient Home Medication Reconciliation performed by pharmacy medication reconciliations plumbing technician and/or nursing. Patients Allergies have been reviewed. Allergies Allergies Coded Allergies Penicillins (Verified Allergy, Unknown, RASH, HAS HAD ROCEPHIN IN THE PAST W/O ISSUE, 09/27/16) clarithromycin (Verified Allergy, Unknown, 09/27/16) erythromycin base (Verified Allergy, Unknown, 09/27/16) levofloxacin (Verified Allergy, Unknown, 09/04/17) morphine (Verified Allergy, Unknown, TAKES LORTAB AT HOME, 09/27/16) Past Phjcpeb-Xygqot-Zjqooj Hx Patient Social History Marrital Status: Employed/Student: retired Tobacco Use?: No Smoking Status: Never a Smoker Smokeless Tobacco Frequency: Never a User Use of E-Cig and/or Vaping dev: No Substance use?: No Alcohol Use?: No Pt feels they are or have been: No Immunizations Up To Date Date of Influenza Vaccine: Jul 12, 2021 Date of Pneumonia Vaccine: Jan 05, 2019 Seasonal Allergies Seasonal Allergies: No Current Status Advance Directives: No Advance Directive Location: Home Communicates: Verbally Primary Language: Brazilian Preferred Spoken Language: Brazilian Is interpretation needed?: No Sensory deficits: Hearing impairment Implanted or Applied Medical D: None Past Medical History Surgeries: CABG, Hysterectomy, Joint Replacement, Orthopedic Pneumonia, COPD Atrial Fibrillation, Coronary Artery Disease, Hypertension Stroke Kidney Stones Gastroesophageal Reflux, Hepatitis Osteoporosis, Arthritis, Scoliosis, Fractures Hypothyroidsim Cataract Loss of Vision: Denies Hearing Impairment: Denies Depression Eczema, Recent Skin Changes Blood Disorders: No Adverse Reaction/Blood Tranf: No Family Medical History Cardiovascular disease 19 FATHER 19 MOTHER G8 BROTHER G8 BROTHER FH: CHF (congestive heart failure) 19 MOTHER G8 BROTHER Myocardial infarction 19 FATHER G8 BROTHER G8 BROTHER Heart Disease Review of Systems Constitutional: No fever, No weakness Respiratory: No cough; short of breath (oxygen dependent) Cardiovascular: No chest pain, No palpitations Physical Exam Physical Exam Vital Signs Vital Signs - First Documented 10/05/21 10/05/21 16:00 17:22 Temp 36.1 Pulse 93 Resp 28 B/P (MAP) 132/72 Pulse Ox 94 O2 Delivery Nasal Cannula O2 Flow Rate 2.00 Capillary Refill : Less Than 3 Seconds Height, Weight, BMI Height: 5'4.00" Weight: 160lbs. 4.0oz. 72.934821ck; 35.02 BMI Method:Estimated General Appearance: WD/WN, Anxious Respiratory: No Accessory Muscle Use, No Respiratory Distress Cardiovascular: Other (A Fib) Rectal: Deferred Neurologic/Psychiatric: Alert, Oriented x3, Normal Mood/Affect Skin: Normal Color, Warm/Dry Results Results/Procedures Labs Laboratory Tests 10/05/21 20:11 10/06/21 04:21 Patient resulted labs reviewed. Assessment/Plan Assessment and Plan Assess & Plan/Chief Complaint Assessment Atrial Fibrillation CAD COPD Chronic kidney failure Hypokalemia Hypertension Hyperlipidemia Hypothyroidism Arthritis History of depression Plan Replace potassium Continue oral anticoagulation Continue O2 and monitor O2 sat Monitor labs Start home medications Appreciate cardiology for the consult MELONIE SEXTON DO 10/07/21 0625: HPI History of Present Illness: HPI/Chief Complaint Chief complaint: Atrial fibrillation set for sotalol initiation History of present illness: This is a 76-year-old white female clinic patient of [facility] with history of atrial fibrillation who was set for NIKKI and cardioversion and then sotalol infusion but change of plans occurred when EKG showed increased QT interval making sotalol contraindicated. Currently patient is remaining on chronic O2 supplement and her life partner is at the bedside. She denies any pain but frustrated with her ongoing atrial fibrillation with RVR that is causing significant debility. Source: patient, RN/MD (notes) Exam Limitations: no limitations Past Waxdkjj-Gtznaf-Rxixkg Hx Patient Social History Marrital Status: cohabiting Employed/Student: retired Smoking Status: Former Smoker Past Medical History COPD Atrial Fibrillation, Coronary Artery Disease, High Cholesterol, Hypertension Neuropathy Kidney Infection, Renal Failure Gastroesophageal Reflux Arthritis Hypothyroidsim Anxiety, Depression Family Medical History Cardiovascular disease 19 FATHER 19 MOTHER G8 BROTHER G8 BROTHER FH: CHF (congestive heart failure) 19 MOTHER G8 BROTHER Myocardial infarction 19 FATHER G8 BROTHER G8 BROTHER Review of Systems Constitutional: see HPI, malaise, weakness EENTM: no symptoms reported Respiratory: short of breath (oxygen dependent) Cardiovascular: palpitations Gastrointestinal: no symptoms reported Genitourinary: no symptoms reported Musculoskeletal: no symptoms reported Skin: no symptoms reported Psychiatric/Neurological: No Symptoms Reported All Other Systems Reviewed Negative Unless Noted: Yes Physical Exam Physical Exam General Appearance: No Apparent Distress, WD/WN, Anxious, Chronically ill Eyes: Bilateral Eye Normal Inspection, Bilateral Eye PERRL HEENT: PERRL/EOMI, Normal ENT Inspection, Pharynx Normal Neck: Full Range of Motion, Normal Inspection, Non Tender, Supple, Carotid Bruit Respiratory: Chest Non Tender, Lungs Clear, Normal Breath Sounds, No Accessory Muscle Use, No Respiratory Distress, Decreased Breath Sounds Cardiovascular: No Edema, No Gallop, No JVD, No Murmur, Normal Peripheral Pulses, Irregularly Irregular, Tachycardia Gastrointestinal: Normal Bowel Sounds, No Organomegaly, No Pulsatile Mass, Non Tender, Soft Back: Normal Inspection, No CVA Tenderness, No Vertebral Tenderness Extremity: Normal Capillary Refill, Normal Inspection, Normal Range of Motion, Non Tender, No Calf Tenderness, No Pedal Edema Neurologic/Psychiatric: Alert, Oriented x3, No Motor/Sensory Deficits, Normal Mood/Affect Skin: Normal Color, Warm/Dry Lymphatic: No Adenopathy Assessment/Plan Assessment and Plan Assess & Plan/Chief Complaint Assessment: Atrial fibrillation in need of cardioversion and/or sotalol infusion and/or ablation COPD oxygen dependent Hypertension Hyperlipidemia Hypothyroidism Obesity BMI 35 Plan: Appreciate consult request Monitor oxygen Supportive half-way meds Supervisory-Addendum Brief Verification & Attestation Participated in pt care: history, MDM, physical Personally performed: exam, history, MDM, supervision of care Care discussed with: Medical Student Procedures: n/a Results interpretation: Verified all documentation Verification and Attestation of Medical Student E/M Service A medical student performed and documented this service in my presence. I reviewed and verified all information documented by the medical student and made modifications to such information, when appropriate. I personally performed the physical exam and medical decision making. Melonie Sexton Oct 07, 2021,06:21 ANTONIO HERNANDEZ Oct 06, 2021 17:34 MELONIE SEXTON DO Oct 07, 2021 06:25
[2021-10-07] MEDS ORDERED: ALLOPURINOL 300 MG (ZYLOPRIM) TAB PO SCH (09:00)
--- NOTE | 2021-10-16 11:01 | Physician Query-Final Dx ---
LORENZO ROBIN 10/16/21 1101: Final Diagnosis Give Final Diagnosis Please give Final Diagnosis MEHRDAD10/16/21 1324: LORENZO ROBIN Oct 16, 2021 11:01 MEHRDADOct 16, 2021 13:24
== END 2021-10-06 14:40 | disposition home or self-care (01) ==
LOC: ICU 16:39 → INTOOBSV 16:39
PROVIDERS: ADMIT Internal Medicine Cardiovascular Disease; ATTEND Internal Medicine Cardiovascular Disease
DX: I48.0 Paroxysmal atrial fibrillation (principal); I25.10 Atherosclerotic heart disease of native coronary artery without angina pectoris; I50.9 Heart failure, unspecified; I13.0 Hypertensive heart and chronic kidney disease with heart failure and stage 1 through stage 4 chronic kidney disease, or unspecified chronic kidney disease; I65.23 Occlusion and stenosis of bilateral carotid arteries; N18.9 Chronic kidney disease, unspecified; J44.9 Chronic obstructive pulmonary disease, unspecified; E78.2 Mixed hyperlipidemia; E03.9 Hypothyroidism, unspecified; E66.9 Obesity, unspecified; Z68.35 Body mass index [BMI] 35.0-35.9, adult; Z79.890 Hormone replacement therapy; Z95.1 Presence of aortocoronary bypass graft; Z87.891 Personal history of nicotine dependence; Z79.899 Other long term (current) drug therapy; Z83.3 Family history of diabetes mellitus
CPT/HCPCS: 36415; 80048; 80053; 83735; 85027; 85610; 85730; 87081; 93005; 93312; 93320; 93325; 94664

== ENCOUNTER 2022-06-06 12:06 | Day surgery (SDC) | payer MEDICARE, OTHER ==
[2022-06-06] VITALS (12 sets, daily range): BP systolic 115–153; BP diastolic 51–88
[~2022-06-06] VITALS: Ht 160 cm; Wt 91.3 kg
[~2022-06-06 12:06] MED LIST changes: +BUDE10.2 IH; -CRAN500T3 PO; +CRAN500T4 PO; +DICL20GE TP; +FURO-124 PO; +HYDR-3820 PO; +LEVO112T55 PO; +MAGN400T39 PO; +NEBI5TAB11 PO; +POTA10TA PO; +ROSU20TA2 PO
[2022-06-06] MEDS ORDERED: NS IV 1000 ML 1,000 ML IV SCH (12:45)
[2022-06-06 13:00] LABS: HEMATOCRIT 34 % (35-52); HEMOGLOBIN 10.7 g/dL (11.5-16.0); MEAN CORPUSCULAR HEMOGLOBIN 31 pg (25-34); MEAN CORPUSCULAR HGB CONC 32 g/dL (32-36); MEAN CORPUSCULAR VOLUME 97 fL (80-99); PLATELET COUNT 211 10^3/uL (130-400); WHITE BLOOD COUNT 5.3 10^3/uL (4.3-11.0)
[2022-06-06 13:00] LABS: BILIRUBIN,URINE NEGATIVE (NEGATIVE); CLARITY,URINE CLEAR; COLOR,URINE YELLOW; GLUCOSE, URINE (UA) NEGATIVE (NEGATIVE); KETONES,URINE NEGATIVE (NEGATIVE); LEUKOCYTE ESTERASE ,URINE NEGATIVE (NEGATIVE); NITRITE,URINE NEGATIVE (NEGATIVE); PH,URINE 5.5 (5-9); PROTEIN,URINE NEGATIVE (NEGATIVE)
[2022-06-06 13:09] LABS: ALBUMIN 4.1 GM/DL (3.2-4.5); POTASSIUM 3.6 MMOL/L (3.6-5.0)
[2022-06-06 13:09] LABS: BACTERIA,URINE TRACE /HPF; SQUAMOUS EPITHELIAL CELL,UR RARE /HPF; WBC,URINE 0-2 /HPF
[2022-06-06 13:10] LABS: CALCIUM 10.1 MG/DL (8.5-10.1)
[2022-06-06 13:11] LABS: TOTAL PROTEIN 7.5 GM/DL (6.4-8.2)
[2022-06-06 13:12] LABS: INR 1.3 (0.8-1.4); PROTHROMBIN TIME PATIENT 16.4 SEC (12.2-14.7)
[2022-06-06] MEDS ORDERED: HEParin (CATH LAB) 2,000 ML IV ONE (13:12)
[2022-06-06] MEDS ORDERED: LIDOCAINE 1% INJ 20 ML VIAL ONE ×2 (13:12→14:39)
[2022-06-06] MEDS ORDERED: NS IV 1000 ML 1,000 ML ONE (13:12)
[2022-06-06 13:13] LABS: BILIRUBIN,TOTAL 0.5 MG/DL (0.1-1.0)
[2022-06-06 13:15] LABS: CREATININE SERUM 1.36 MG/DL (0.60-1.30)
--- NOTE | 2022-06-06 13:18 | Diagnostic Imaging Report ---
EXAMINATION: Chest 1 view HISTORY: CAD COMPARISON: 01/02/2021. FINDINGS: Heart size and pulmonary vasculature are stable. Surgical changes from median sternotomy and CABG. There are low lung volumes with mild diffuse interstitial opacities. No pleural effusion or pneumothorax. Degenerative changes of the thoracic spine. Osseous structures are otherwise intact. IMPRESSION: 1. Stable low lung volumes with mild diffuse interstitial opacities, likely atelectasis. No other acute radiographic abnormality in the chest. Dictated by: Dictated on workstation # [id number]
[2022-06-06] MEDS ORDERED: ISOS30TA82 PO (13:29)
[2022-06-06] MEDS ORDERED: DULO30CA3 PO (13:29)
[2022-06-06] MEDS ORDERED: KRIL500C PO (13:29)
[2022-06-06] MEDS ORDERED: NEBI2.5T5 PO (13:29)
[2022-06-06] MEDS ORDERED: NEBI5TAB8 PO (13:29)
[2022-06-06] MEDS ORDERED: NORCO PO (13:29)
[2022-06-06] MEDS ORDERED: DRON400T6 PO (13:29)
[2022-06-06] MEDS ORDERED: POTA10CA43 PO (13:29)
[2022-06-06] MEDS ORDERED: NITR0.4T39 SL (13:29)
[2022-06-06] MEDS ORDERED: MIDAZOLAM 5 MG/5 ML (VERSED) VIAL ONE (13:58)
--- NOTE | 2022-06-06 13:58 | Cardiac Procedure Note-CS/ASA ---
Pre-Procedure Note Pre-Op Procedure Note Date of Available H&P: Jun 06, 2022 Date H&P Reviewed: Jun 06, 2022 Time H&P Reviewed: 13:58 History & Physical: H&P Reviewed, Patient Examed, No changes noted Pre-Operative Diagnosis: shortness of breath Conscious Sedation Pre-Proced Time 13:58 ASA Score 3 For ASA 3 and 4: Consider anesthesia and medical clearance. Also, for patients with a history of failed moderate sedation consider anesthesia. Airway Lungs Heart ASA score ASA 1: a normal healthy patient ASA 2: a patient with a mild systemic disease (mid diabetes, controlled hypertension, obesity x ASA 3: a patient with a severe systemic disease that limits activity (angina, COPD, prior Myocardial infarction) ASA 4: a patient with an incapacitating disease that is a constant threat to life (CHF, renal failure) ASA 5: a moribund patient not expected to survive 24 hrs. (ruptured aneurysm) ASA 6: a declared brain- patient whose organs are being harvested. For emergent operations, add the letter E after the classification Mallampati Classification Grade 3 Sedation Plan Analgesia, Amnesia, Plan communicated to team members, Discussed options with patient/fam, Discussed risks with patient/fam The patient is an appropriate candidate to undergo the planned procedure, sedation, and anesthesia. The patient immediately re-assessed prior to indication. DARSHAN SEGUNDO MD Jun 06, 2022 13:58
[2022-06-06] MEDS ORDERED: HEParin 1000 UNIT/ML (10ML VIAL) FOR BOLUS ONE (14:58)
[2022-06-06] MEDS ORDERED: NITRO DRIP 25000 MCG/D5W 0 ML IV ONE (15:01)
[2022-06-06] MEDS ORDERED: diphenhydrAMINE 50 MG/ML INJ (BENADRYL) ONE (15:07)
[2022-06-06] MEDS ORDERED: CLOPIDOGREL 300 MG (PLAVIX) TABLET PO ONE (15:19)
[2022-06-06] MEDS ORDERED: ASPIRIN 325 MG (5 GR) TABLET ONE (15:19)
[2022-06-06] MEDS ORDERED: ACETAMINOPHEN 500 MG TAB (TYLENOL) PO PRN (15:30)
[2022-06-06] MEDS ORDERED: PATIENT MAY USE OWN MEDS, ALL PO SCH (15:30)
[2022-06-06] MEDS ORDERED: RT-ALBUTEROL SULF 2.5 MG/3 ML PRE-MIX VIAL IH PRN (15:30)
[2022-06-06] MEDS ORDERED: NORCO PO PRN (15:30)
[2022-06-06] MEDS ORDERED: NITROGLYCERIN 0.4 MG SL TABS BTL 25'S SL PRN (15:30)
--- NOTE | 2022-06-06 16:06 | Cardiac Cath Report ---
Cardiac Cath Report Physician (s)/Backbreaker (s) Physician DARSHAN SEGUNDO MD Pre-Procedure Diagnosis Pre-Procedure Diagnosis: shortness of breath, coronary artery disease Post-Procedure Note Procedure Start Date: Jun 06, 2022 Name of Procedure: Right heart catheterization Left heart catheterization Vein graft angiogram LUNA angiogram Stenting of the vein graft to the circumflex artery Findings/Procedure Note PROCEDURE NOTE: 76-year-old lady with history of coronary artery disease paroxysmal atrial fibrillation and COPD has been having increasing shortness of breath, had ische remedios and scheduled for right and left heart catheterization. After explaining the procedure to the patient, all pros and cons were explained, all questions were answered. The patient signed the consent and then she was placed on the cardiac catheterization laboratory. Groin was prepped SL fashion local anesthesia was used. Sheath was placed in the right femoral vein, balloontipped Kent-Abiodun catheter was advanced up to the right atrium, right ventricle, main pulmonary artery and wedge position, oxygen saturation and pressure was measured, cardiac output by thermodilution and Shannan equation was measured. Sheath placed in the left femoral artery. Yuliya right and left catheter were used to access the coronary system.Vein Graft evaluated. LUNA evaluated. Judkin s right catheter prolapsed to the left ventricular cavity, pressure was measured, no left ventriculogram was done. Patient received 5000 units of heparin, FIR guide was used advanced to the vein graft to the circumflex artery and BMW wire was advanced. Patient has 80% stenosis in the proximal vein graft, balloon dilatation then deployment of ramesh point stent 3.5 x 23 mm deployed under 12 ruth up to 3.6 mm with excellent results. At the end of the procedure the sheath was removed. Closure device was deployed on the left side, manual pressure applied on the right FINDINGS: Hemodynamics LV 124/11, end-diastolic pressure of 11 Aorta 125/51 mean of 79 RV 25/13, end-diastolic pressure of 13 RA 15 PA 45/24 mean of 41 Pulmonary capillary wedge pressure 17 Oxygen saturation FA 90%, PA 52%, RV 56%, RA 38%. Cardiac output by thermodilution 4.67, cardiac index by thermodilution 2.43 ANATOMY: Left Main is free of obstructive disease Left Anterior Descending has moderate to severe stenosis, LUNA to the LAD is patent Left Circumflex is occluded proximally, vein graft to the circumflex artery has severe stenosis 80% stenosis proximally successful balloon angioplasty then stent deployment using ramesh point Patricia 3.5 x 23 mm deployed to 3.6 mm with excellent results Right Coronary Artery has severe stenosis proximally, vein graft to the right coronary artery is patent LUNA to LAD is patent with good flow distally, small vessel disease. Vein Graft evaluation showed markers for 2 vein grafts Vein graft to the circumflex artery has severe stenosis approximately 80% sten osis successful balloon angioplasty then deployment of ramesh point Patricia 3.5 x 23 mm expanded to 3.6 mm with excellent results. Vein graft to the right coronary artery is patent with good flow distally LV Gram was not done, pressure was measured CONCLUSION: 1. Severe stenosis in the proximal vein graft to the circumflex artery with successful deployment of ramesh point Patricia 3.5 x 23 mm expanded to 3.6 mm with excellent results 2. Severe [place] coronary artery disease corrected by bypasses with patent LUNA to LAD, vein graft to the right coronary artery 3. Hemodynamics described above, hypoxemia noted, good cardiac output DISCUSSION AND RECOMMENDATION: Continue to maximize medical therapy, patient is maintained on Xarelto, starting aspirin and Plavix for now. Anesthesia Type: Conscious Sedation Estimated blood loss (mL): 30 ml Contrast Amount: 66 ml Total Radiation Dose: 1411 mGy Post-Procedure Diagnosis Post-operative diagnosis: Coronary artery disease COPD Paroxysmal atrial fibrillation Hypertension Hyperlipidemia DARSHAN SEGUNDO MD Jun 06, 2022 16:06
[2022-06-06] MEDS: NS IV 1000 ML 1,000 ML IV SCH (16:25)
[2022-06-06] MEDS: FERROUS SULF 325 MG (IRON) TAB PO SCH (18:47)
[2022-06-06] MEDS: DRONEDARONE 400 MG TABLET PO SCH (20:31)
[2022-06-06] MEDS ORDERED: NON-FORMULARY MEDICATION 1 EA EA (Budesonide/Formoterol Fumarate (Symbicort 160-4.5 Mcg In IH SCH (21:00)
[2022-06-06] MEDS ORDERED: NEBIVOLOL HCL 2.5 MG PO SCH (21:00)
[2022-06-06] MEDS ORDERED: ROSUVASTATIN 20 MG (CRESTOR) TABLET PO SCH (21:00)
[2022-06-06] MEDS ORDERED: MONTELUKAST 10 MG (SINGULAIR) TAB PO SCH (21:00)
[2022-06-06] MEDS: RT--FLUTICASONE/SALMETEROL 232-14 (AIRDUO RespiCLICK) IH SCH (21:58)
[2022-06-07] VITALS: BP 114/52
[2022-06-07] MEDS: NS IV 1000 ML 1,000 ML IV SCH ×2 (01:04→11:30)
[2022-06-07 04:00] VITALS: BP 132/68
[2022-06-07 04:33] LABS: HEMATOCRIT 31 % (35-52); HEMOGLOBIN 9.5 g/dL (11.5-16.0); MEAN CORPUSCULAR HEMOGLOBIN 30 pg (25-34); MEAN CORPUSCULAR HGB CONC 31 g/dL (32-36); MEAN CORPUSCULAR VOLUME 98 fL (80-99); MEAN PLATELET VOLUME 9.5 fL (9.0-12.2); PLATELET COUNT 171 10^3/uL (130-400)
[2022-06-07 04:54] LABS: CALCIUM 9.4 MG/DL (8.5-10.1); CREATININE SERUM 1.34 MG/DL (0.60-1.30); POTASSIUM 3.9 MMOL/L (3.6-5.0)
[2022-06-07] MEDS ORDERED: LEVOTHYROXINE 112 MCG (LEVOTHROID) TAB PO SCH (06:30)
[2022-06-07] MEDS ORDERED: CLOP75TA28 PO (06:35)
[2022-06-07] MEDS ORDERED: PANT40SU PO (06:36)
[2022-06-07] MEDS ORDERED: ASPI-1238 PO (06:36)
--- NOTE | 2022-06-07 06:36 | Discharge Inst-Post CATH ---
Discharge Inst-CATH/EP Problems Reviewed?: Yes Post Cardiac Cath/EP D/C Inst Follow Up/Plan Appointment with Dr Russell in 2-4 weeks <b>CARDIAC CATH/EP PROCEDURE DISCHARGE INSTRUCTIONS</b> ACTIVITY * Go Home directly and rest. * Limit activity of the leg (or wrist if it was used) for 7 days including aerobics, swimming, jogging, bicycling, etc. * Restrict stair-climbing for 7 days if possible, if not, climb up with your non-cath leg, then bring together on the same step. * Avoid lifting, pushing, pulling or excessive movement of the affected extremity for 7 days. * Customary sexual activity may be resumed after 2 days-use caution not to use a position that strains or causes pain to the affected extremity. * No driving for 24 hours. * NO SMOKING. * Avoid straining for bowel movements for 7 days. * Gentle walking on level ground is allowed. * Returning to work will depend on the type of procedure and the results. Your doctor will discuss this with you. CALL YOUR DOCTOR FOR ANY OF THE FOLLOWING: *If bleeding from the puncture site occurs- Apply gentle pressure to site with clean cloth and call your doctor or EMS. * If a knot or lump forms under the skin, increases in size, or causes pain. * If bruising appears to be worsening or moving further down your leg instead of disappearing. * Temperature above 101 F. CARE OF YOUR GROIN INCISION; * Bruising or purple discoloration of the skin near the puncture site is common. * You may shower only, no bathtub bathing for 5 days. Be careful to avoid slipping as your leg may feel stiff. * If a closure device was used on your femoral artery, please see the attached guide regarding care of the device and your leg. * Leave dressing on FOR 24 hours. CARE OF YOUR WRIST INCISION; * Bruising or purple discoloration of the skin near the puncture site is common. * You may shower. * DO NOT submerge wrist. * Leave dressing on FOR 24 hours. DARSHAN RUSSELL MD Jun 07, 2022 06:36
[2022-06-07] MEDS ORDERED: KCL 10 MEQ TAB (MICRO K) PO SCH (07:00)
[2022-06-07] MEDS ORDERED: MULTIVIT W/MINERALS TAB (THERAGRAN M) PO SCH (07:00)
[2022-06-07 07:42] VITALS: BP 104/62
[2022-06-07] MEDS: RT--FLUTICASONE/SALMETEROL 232-14 (AIRDUO RespiCLICK) IH SCH ×2 (07:47→07:49)
[2022-06-07] MEDS ORDERED: MAGNESIUM OXIDE (MAG-OX)400 MG TAB PO SCH (08:00)
[2022-06-07] MEDS ORDERED: RIVAROXABAN 20 MG TABLET (XARELTO) PO SCH (08:00)
--- NOTE | 2022-06-07 08:37 | Cardiology Progress Note ---
Subjective Date Seen by Provider: Jun 07, 2022 Time Seen by Provider: 08:35 Subjective/Events-last exam Patient was seen at bedside, sitting comfortably, feeling well. No new complaint Review of Systems General: No Chills, No Night Sweats, No Fatigue, No Malaise, No Appetite, No Other HEENT: No Head Aches, No Visual Changes, No Eye Pain, No Ear Pain, No Dysphasia, No Sinus Congestion, No Post Nasal Drip, No Sore Throat, No Other Pulmonary: No Dyspnea, No Cough, No Pleuritic Chest Pain, No Other Cardiovascular: No: Chest Pain, Palpitations, Orthopnea, Paroxysmal Noc. Dyspnea, Edema, Lt Headedness, Other Objective-Cardiology Exam Last Set of Vital Signs Vital Signs 06/07/22 06/07/22 07:42 07:47 Temp 36.1 Pulse 58 Resp 15 B/P (MAP) 104/62 (76) Pulse Ox 100 O2 Delivery Nasal Cannula O2 Flow Rate 2.00 I&O Intake and Output 06/07/22 00:00 Intake Total 1300 ml Balance 1300 ml Intake Oral 300 ml IV Total 1000 ml # Voids 2 General: Alert, Oriented X3, Cooperative HEENT: Atraumatic, PERRLA Neck: Supple, No JVD, No Thyromegaly Lungs: Clear to Auscultation, Normal Air Movement Heart: Regular Rate, Normal S1, Normal S2, No Murmurs Abdomen: Normal Bowel Sounds, Soft, No Tenderness, No Hepatosplenomegaly, No Masses Extremities: No Clubbing, No Cyanosis, No Edema, Normal Pulses, No Tenderness/Swelling Skin: No Rashes, No Breakdown, No Significant Lesion Neuro: Normal Gait, Normal Speech, Strength at 5/5 X4 Ext, Normal Tone, Sensation Intact Psych/Mental Status: Mental Status NL, Mood NL Results Lab Laboratory Tests 06/06/22 12:53 06/07/22 04:29 A/P-Cardiology Admission Diagnosis Coronary artery disease Pulmonary hypertension with COPD Hypertension Hyperlipidemia Paroxysmal atrial fibrillation Assessment/Plan Coronary artery disease, status post cardiac catheterization with stenting of the vein graft to the circumflex artery with excellent results. Right heart catheterization also was done. Pulmonary hypertension with history of COPD, oxygen dependent Hypertension, continue current medication monitor Hyperlipidemia, monitor lipids. Paroxysmal atrial fibrillation History of carotid stenosis DARSHAN SEGUNDO MD Jun 07, 2022 08:37
[2022-06-07] MEDS ORDERED: NON-FORMULARY MEDICATION 1 EA EA (Potassium Chloride 10 MEQ) PO SCH (09:00)
[2022-06-07] MEDS ORDERED: NON-FORMULARY MEDICATION 1 EA EA (Multivitamin 1 EACH) PO SCH (09:00)
[2022-06-07] MEDS ORDERED: ALLOPURINOL 300 MG (ZYLOPRIM) TAB PO SCH (09:00)
[2022-06-07] MEDS ORDERED: ASPIRIN E.C. 81 MG (ECOTRIN) TAB PO SCH (09:00)
[2022-06-07] MEDS ORDERED: FUROSEMIDE 40 MG (LASIX) TAB PO SCH (09:00)
[2022-06-07] MEDS ORDERED: NON-FORMULARY MEDICATION 1 EA EA (Krill Oil 500 MG) PO SCH (09:00)
[2022-06-07] MEDS ORDERED: NON-FORMULARY MEDICATION 1 EA EA (Cholecalciferol (Vitamin D3) (Vitamin D3) 125 MCG) PO SCH (09:00)
[2022-06-07] MEDS ORDERED: ISOSORBIDE MONONITRATE 30 MG (IMDUR) TAB PO SCH (09:00)
[2022-06-07] MEDS ORDERED: NON-FORMULARY MEDICATION 1 EA EA (Nebivolol HCl (Bystolic) 5 MG) PO SCH (09:00)
[2022-06-07] MEDS ORDERED: CLOPIDOGREL 75 MG (PLAVIX) TABLET PO SCH (09:00)
[2022-06-07] MEDS ORDERED: NON-FORMULARY MEDICATION 1 EA EA (Magnesium Oxide (Magnesium) 400 MG) PO SCH (09:00)
[2022-06-07] MEDS ORDERED: DULoxetine 30 MG (CYMBALTA) CAP PO SCH (09:00)
[2022-06-07] MEDS ORDERED: VITAMIN D3 125 MCG (5,000 UNITS) CAPSULE PO SCH (09:00)
[2022-06-07] MEDS: DRONEDARONE 400 MG TABLET PO SCH (09:28)
[2022-06-07] MEDS: FERROUS SULF 325 MG (IRON) TAB PO SCH (09:28)
== END 2022-06-07 12:10 | disposition home or self-care (01) ==
LOC: CATH 12:06 → SDC 14:06 → CSD 15:56 → CATH 06-07 12:10
PROVIDERS: ATTEND Internal Medicine Cardiovascular Disease
DX: I25.10 Atherosclerotic heart disease of native coronary artery without angina pectoris (principal); I48.0 Paroxysmal atrial fibrillation; I10 Essential (primary) hypertension; E78.5 Hyperlipidemia, unspecified; J44.9 Chronic obstructive pulmonary disease, unspecified
CPT/HCPCS: 71045; 80048; 80053; 80061; 81000; 85027 ×2; 85610; 85730; 87081; 93005 ×2; 93460; 94640; C1725; C1760; C1769; C1874; C1887; C1894 ×2; C9604; 36415

== ENCOUNTER 2022-06-20 15:38 | Inpatient (IN) | payer MEDICARE, OTHER ==
[2022-06-20] VITALS (10 sets, daily range): BP systolic 107–126; BP diastolic 48–62
[~2022-06-20] VITALS: Ht 160 cm; Wt 90.7 kg
[~2022-06-20 15:38] MED LIST changes: +ASPI-1238 PO; +CLOP75TA28 PO; +DULO30CA3 PO; +KRIL500C PO; +NEBI5TAB8 PO; +NITR0.4T39 SL; +NORCO PO; +PANT40SU PO; +POTA10CA43 PO
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
[2022-06-20 16:01] LABS: BASOPHILS # (AUTO) 0.1 10^3/uL (0.0-0.1); BASOPHILS % (AUTO) 1 % (0-10); EOSINOPHILS # (AUTO) 0.1 10^3/uL (0.0-0.3); EOSINOPHILS % (AUTO) 1 % (0-10); LYMPHOCYTES # (AUTO) 1.5 10^3/uL (1.0-4.0); LYMPHOCYTES % (AUTO) 15 % (12-44); MEAN CORPUSCULAR HEMOGLOBIN 32 pg (25-34); MEAN CORPUSCULAR HGB CONC 31 g/dL (32-36); MEAN CORPUSCULAR VOLUME 103 fL (80-99); MEAN PLATELET VOLUME 9.9 fL (9.0-12.2); MONOCYTES # (AUTO) 0.6 10^3/uL (0.0-1.0); MONOCYTES % (AUTO) 6 % (0-12); NEUTROPHILS # (AUTO) 7.4 10^3/uL (1.8-7.8); NEUTROPHILS % (AUTO) 76 % (42-75); PLATELET COUNT 284 10^3/uL (130-400); WHITE BLOOD COUNT 9.8 10^3/uL (4.3-11.0)
[2022-06-20 16:11] LABS: HEMOGLOBIN 5.2 g/dL (11.5-16.0)
[2022-06-20 16:12] LABS: ABG BASE EXCESS 4.4 MMOL/L (-2.5-2.5); ABG OXYGEN SATURATION 99 % (94-100); ABG PCO2 45 MMHG (35-45); ABG PH 7.42 (7.37-7.43); ABG PO2 128 MMHG (79-93); ABG TCO2 30.2 MMOL/L (21.0-31.0)
[2022-06-20 16:12] LABS: HEMATOCRIT 17 % (35-52)
[2022-06-20 16:13] LABS: ALLENS TEST YES-POS; INSPIRED O2 3L; PATIENT TEMP 36.8; VENTILATOR NO
[2022-06-20 16:14] LABS: ALBUMIN 3.7 GM/DL (3.2-4.5); POTASSIUM 3.5 MMOL/L (3.6-5.0)
[2022-06-20 16:16] LABS: CALCIUM 8.9 MG/DL (8.5-10.1)
[2022-06-20 16:17] LABS: TOTAL PROTEIN 6.3 GM/DL (6.4-8.2)
[2022-06-20 16:19] LABS: BILIRUBIN,TOTAL 0.6 MG/DL (0.1-1.0)
[2022-06-20 16:20] LABS: CREATININE SERUM 1.62 MG/DL (0.60-1.30)
[2022-06-20 16:23] LABS: MAGNESIUM 2.1 MG/DL (1.6-2.4)
--- NOTE | 2022-06-20 16:27 | Diagnostic Imaging Report ---
Indication: Chest pain x2 weeks Portable chest 4:13 PM There is a loop recorder projecting over left lower chest. There are postoperative changes from CABG surgery. Heart size is mildly increased. Lungs are clear. IMPRESSION: No acute abnormalities in the chest Dictated by: Dictated on workstation # [id number]
[2022-06-20 16:29] LABS: INR 2.7 (0.8-1.4); PROTHROMBIN TIME PATIENT 29.2 SEC (12.2-14.7)
[2022-06-20] MEDS ORDERED: NS IV 500 ML 500 ML IV SCH (17:00)
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
--- NOTE | 2022-06-20 18:44 | Diagnostic Imaging Report ---
PROCEDURE: CT abdomen and pelvis without contrast. TECHNIQUE: Multiple contiguous axial images were obtained through the abdomen and pelvis without the use of intravenous contrast. Auto Exposure Controls were utilized during the CT exam to meet ALARA standards for radiation dose reduction. INDICATION: 76-year-old female, chest pain and pressure x2 weeks. Increasing shortness of air and fatigue, abdominal pain, nausea. CORRELATION STUDY: 11/10/2020 FINDINGS: LOWER THORAX: Sternal wires are present. Heart size enlarged. Chronic change about the lung parenchyma with perhaps minimal basilar scarring and/or atelectasis. Old healed bilateral rib fractures. LIVER: Unremarkable on unenhanced imaging. GALLBLADDER: Present and unremarkable. No bile duct dilatation. SPLEEN: Unremarkable. PANCREAS: Unremarkable. ADRENAL GLANDS: Unremarkable. KIDNEYS: Some generalized thinning and atrophic change of both kidneys. 17 mm partially exophytic low-density mass superior pole left kidney favors cyst. Calcification could be vascular versus nonobstructing stones. No ureteric obstruction. ABDOMINAL AORTA: Moderate calcification of the abdominal aorta with what appears to be likely chronic areas of a small dissection. No significant aneurysm. No pathologic enlarged aortocaval lymph nodes. GASTROINTESTINAL TRACT: Postoperative changes of the stomach. No obstruction or inflammation. Normal appendix. URINARY BLADDER: Decompressed around Morgan catheter. REPRODUCTIVE: Hysterectomy. OSSEOUS STRUCTURES: Postop changes bilateral proximal femurs and right hip with metallic artifact. Old right pubic rami fracture deformity. Advanced degenerative changes with scoliotic curvature of the visualized thoracolumbar spine. OTHER: None. IMPRESSION: 1. Negative for acute abnormality of the abdomen or pelvis. Dictated by: Dictated on workstation # [id number]
[2022-06-20] MEDS ORDERED: ANTACID SUSP 30 ML UDC (MYLANTA) PO PRN (19:30)
[2022-06-20] MEDS ORDERED: polyethylene glycoL POWDER 17 GM (MIRALAX) PACK PO PRN (19:30)
[2022-06-20] MEDS ORDERED: LACTULOSE SYRUP 10GM/15ML (ENULOSE) 30ML UDC PO PRN (19:30)
[2022-06-20] MEDS ORDERED: NS IV 500 ML 500 ML IV PRN (19:30)
[2022-06-20] MEDS ORDERED: ACETAMINOPHEN 325 MG TABLET PO PRN (19:30)
[2022-06-20] MEDS ORDERED: ONDANSETRON 4 MG (ZOFRAN) ORAL DISSOLVE TAB PO PRN (19:30)
[2022-06-20] MEDS ORDERED: HYDROmorphone 2 MG/ML VIAL (DILAUDID) IV PRN (19:30)
[2022-06-20] MEDS ORDERED: ONDANSETRON 4 MG/2 ML (SDV) Z0FRAN IV PRN (19:30)
[2022-06-20] MEDS ORDERED: MILK OF MAGNESIA 400 MG/5 ML 30 ML UDC PO PRN (19:30)
[2022-06-20] MEDS ORDERED: MELATONIN 3 MG TABLET PO PRN (19:30)
[2022-06-20] MEDS ORDERED: CALCIUM CARBONATE 500 MG (TUMS) TAB.CHEW PO PRN (19:30)
[2022-06-20] MEDS ORDERED: BISACODYL 10 MG SUPP (DULCOLAX) PR PRN (19:30)
[2022-06-20] MEDS ORDERED: diphenhydrAMINE 50 MG/ML INJ (BENADRYL) IVP PRN (19:30)
[2022-06-20] MEDS ORDERED: ALPRAZolam 0.25 MG (XANAX) TAB PO PRN (19:30)
[2022-06-20] MEDS ORDERED: NALOXONE 0.4 MG/ML 1 ML (NARCAN) VIAL IV PRN (19:30)
[2022-06-20] MEDS ORDERED: diphenhydrAMINE 25 MG TAB (BENADRYL) PO PRN (19:30)
[2022-06-20] MEDS ORDERED: ALPRAZolam 0.5 MG (XANAX) TAB ONE (20:10)
[2022-06-20] MEDS ORDERED: NS IV 1000 ML 1,000 ML ONE (20:10)
[2022-06-20] MEDS ORDERED: RT-ALBUTEROL SULF 2.5 MG/3 ML PRE-MIX VIAL INH PRN (20:15)
[2022-06-20] MEDS: NS IV 1000 ML 1,000 ML IV SCH (20:33)
[2022-06-20] MEDS: DOCUSATE SODIUM 100 MG (COLACE) CAP PO SCH (21:27)
[2022-06-20] MEDS: SENNOSIDES 8.6 MG (SENOKOT) TAB PO SCH (21:28)
--- NOTE | 2022-06-20 21:47 | Tele-ICU Progress Note ---
Progress Note 76F with COPD on 2L home O2, afib, chronic anemia, hypertension, hypothyroid, CAD s/p PCI with stent x2 06/07/22 with progressive worsening of CP, SOB, fatigue and weakness since that time. In ED found to have Hg 5.2, down from 9 at the time of the cath. Has issues with chronic anemia, but has never been this low. Work up 3 months ago in [place], including colonoscopy, was negative. - anemia: secondary to chronic blood loss, possibly accelerated after addition of xarelto vs destructive process vs bone marrow suppression vs multifactorial. PRBC ordered and transfusion. HD stable. retic, folic, b12, iron already ordered by primary. - coagulopathy: on xarelto, so INR of 2.7 not exactly reliable but patient is coagulopathic. Does not appear to be actively bleeding, or at least not briskly with progressive symptoms over weeks. Given risks associated with reversal in the setting of a fresh stent, will defer unless emergent. Focused Exam Height, Weight, BMI Height: 5'4.00" Weight: 160lbs. 4.0oz. [id number]; 35.42 BMI Method:Estimated KIRK ALDRICH MD Jun 20, 2022 21:47
[2022-06-21 00:51] LABS: HEMOGLOBIN 7.3 g/dL (11.5-16.0)
[2022-06-21 00:54] LABS: RETICULOCYTE % 7.26 % (0.50-2.40)
[2022-06-21 04:58] LABS: BASOPHILS # (AUTO) 0.1 10^3/uL (0.0-0.1); BASOPHILS % (AUTO) 1 % (0-10); EOSINOPHILS # (AUTO) 0.2 10^3/uL (0.0-0.3); EOSINOPHILS % (AUTO) 3 % (0-10); HEMATOCRIT 22 % (35-52); LYMPHOCYTES # (AUTO) 1.2 10^3/uL (1.0-4.0); LYMPHOCYTES % (AUTO) 16 % (12-44); MEAN CORPUSCULAR HEMOGLOBIN 30 pg (25-34); MEAN CORPUSCULAR HGB CONC 32 g/dL (32-36); MEAN CORPUSCULAR VOLUME 94 fL (80-99); MEAN PLATELET VOLUME 9.8 fL (9.0-12.2); MONOCYTES # (AUTO) 0.5 10^3/uL (0.0-1.0); MONOCYTES % (AUTO) 7 % (0-12); NEUTROPHILS # (AUTO) 5.2 10^3/uL (1.8-7.8); NEUTROPHILS % (AUTO) 72 % (42-75); PLATELET COUNT 202 10^3/uL (130-400); WHITE BLOOD COUNT 7.2 10^3/uL (4.3-11.0)
[2022-06-21 05:10] LABS: ALBUMIN 3.3 GM/DL (3.2-4.5); POTASSIUM 3.4 MMOL/L (3.6-5.0)
[2022-06-21 05:11] LABS: CALCIUM 8.5 MG/DL (8.5-10.1)
[2022-06-21 05:13] LABS: TOTAL PROTEIN 5.6 GM/DL (6.4-8.2)
[2022-06-21 05:14] LABS: BILIRUBIN,TOTAL 1.1 MG/DL (0.1-1.0)
[2022-06-21 05:16] LABS: CREATININE SERUM 1.45 MG/DL (0.60-1.30); PHOSPHORUS 3.4 MG/DL (2.3-4.7)
[2022-06-21 05:19] LABS: MAGNESIUM 2.1 MG/DL (1.6-2.4)
[2022-06-21] MEDS: MAGNESIUM 1 GM/100 ML IVPB 100 ML IV SCH (05:37)
[2022-06-21] MEDS: POTASSIUM CL 10MEQ/50ML IVPB 50 ML IV SCH ×2 (05:38→06:21)
--- NOTE | 2022-06-21 07:53 | Diagnostic Imaging Report ---
INDICATION: Dyspnea. Comparison is made with prior examination of 06/20/2022. FINDINGS: There is cardiomegaly. There is some venous congestion. There is no pleural effusion or pneumothorax. Loop recorder overlies the left chest. There has been a previous median sternotomy. IMPRESSION: Cardiomegaly and some central pulmonary venous congestion. Dictated by: Dictated on workstation # [id number]
--- NOTE | 2022-06-21 07:59 | Consultation-Cardiology ---
HPI-Cardiology Cardiology Consultation Date of Consultation 06/21/22 Date of Admission Time Seen by Provider: 07:52 Indication: Chest pain HPI 76-year-old lady with extensive cardiac history, underwent stenting to the vein graft to the left circumflex artery on June 06, 2022, maintained on dual antiplatelet therapy. Reported that after her discharge on June 06, 2022 she started to complain of fatigue and loss of energy then she had hypotension, she started tapering down her blood pressure medication but continued to feel more tired, feeling occasional pressure in her chest. No full syncope but she has been lightheaded. Having shortness of breath on exertion. Came into the emergency room yesterday and noted to have severe anemia. She is feeling si gnificantly better after receiving blood transfusion. Home Medications & Allergies Allergies: Coded Allergies: Penicillins (Verified Allergy, Unknown, RASH, HAS HAD ROCEPHIN IN THE PAST W/O ISSUE, 09/27/16) clarithromycin (Verified Allergy, Unknown, 09/27/16) erythromycin base (Verified Allergy, Unknown, 09/27/16) levofloxacin (Verified Allergy, Unknown, 09/04/17) morphine (Verified Allergy, Unknown, TAKES LORTAB AT HOME, 09/27/16) Home Medication List Reviewed: Yes [id number]-[id number] Hx Patient Social History Marital Status: Employed/Student: retired Smoking Status: Former Smoker Former smoker/When Quit: Oct 28, 2006 Type Used: Cigarettes Recent Hopitalizations: No Have you traveled recently?: No Alcohol Use?: No Immunizations Up To Date Tetanus Booster (TDap): Less than 5yrs Date of Pneumonia Vaccine: Jan 05, 2019 Date of Influenza Vaccine: Jul 12, 2021 Past Medical History Discussed below Family Medical History Significant Family History: Heart Disease Family History: Cardiovascular disease 19 FATHER 19 MOTHER G8 BROTHER G8 BROTHER FH: CHF (congestive heart failure) 19 MOTHER G8 BROTHER Myocardial infarction 19 FATHER G8 BROTHER G8 BROTHER Review of Systems-General Review of Systems Constitutional: see HPI; No chills, No diaphoresis; dizziness; No fever; malaise, weakness; No weight gain, No weight loss, No other EENTM: see HPI; No blurred vision, No double vision, No epistaxis Respiratory: see HPI; No cough; dyspnea on exertion; No hemoptysis; short of breath Cardiovascular: see HPI, chest pain; No edema; Hx of Intervention, p alpitations; No syncope, No vascular heart diseas, No other Gastrointestinal: see HPI; No abdominal pain, No constipation, No diarrhea, No dysphagia, No hematemesis, No melena; nausea; No vomiting Genitourinary: see HPI; No decreased output, No hematuria : No Musculoskeletal: no symptoms reported, see HPI Skin: change in color, change in hair/nails Psychiatric/Neurological: No Symptoms Reported Reviewed Test Results Reviewed Test Results Lab Laboratory Tests Test 06/20/22 15:57 06/20/22 16:08 06/21/22 00:20 06/21/22 04:30 Range/Units White Blood Count 9.8 4.3-11.0 10^3/uL Red Blood Count 1.63 L 2.40 L 3.80-5.11 10^6/uL Hemoglobin 5.2 *L 7.3 #L 11.5-16.0 g/dL Hematocrit 17 *L 22 L 35-52 % Mean Corpuscular Volume 103 H 80-99 fL Mean Corpuscular Hemoglobin 32 25-34 pg Mean Corpuscular Hemoglobin Concent 31 L 32-36 g/dL Red Cell Distribution Width 19.6 H 10.0-14.5 % Platelet Count 284 130-400 10^3/uL Mean Platelet Volume 9.9 9.0-12.2 fL Immature Granulocyte % (Auto) 1 % Neutrophils (%) (Auto) 76 H 42-75 % Lymphocytes (%) (Auto) 15 12-44 % Monocytes (%) (Auto) 6 0-12 % Eosinophils (%) (Auto) 1 0-10 % Basophils (%) (Auto) 1 0-10 % Neutrophils # (Auto) 7.4 1.8-7.8 10^3/uL Lymphocytes # (Auto) 1.5 1.0-4.0 10^3/uL Monocytes # (Auto) 0.6 0.0-1.0 10^3/uL Eosinophils # (Auto) 0.1 0.0-0.3 10^3/uL Basophils # (Auto) 0.1 0.0-0.1 10^3/uL Immature Granulocyte # (Auto) 0.1 0.0-0.1 10^3/uL Prothrombin Time 29.2 H 12.2-14.7 SEC INR Comment 2.7 H 0.8-1.4 Activated Partial Thromboplast Time 39 H 24-35 SEC D-Dimer 0.31 0.00-0.49 UG/ML Sodium Level 135 139 135-145 MMOL/L Potassium Level 3.5 L 3.4 L 3.6-5.0 MMOL/L Chloride Level 94 L 101 98-107 MMOL/L Carbon Dioxide Level 27 27 21-32 MMOL/L Anion Gap 14 11 5-14 MMOL/L Blood Urea Nitrogen 35 H 30 H 7-18 MG/DL Creatinine 1.62 H 1.45 H 0.60-1.30 MG/DL Estimat Glomerular Filtration Rate 33 38 BUN/Creatinine Ratio 22 21 Glucose Level 126 H 144 H 70-105 MG/DL Calcium Level 8.9 8.5 8.5-10.1 MG/DL Corrected Calcium 9.1 9.1 8.5-10.1 MG/DL Magnesium Level 2.1 2.1 1.6-2.4 MG/DL Total Bilirubin 0.6 1.1 H 0.1-1.0 MG/DL Aspartate Amino Transf (AST/SGOT) 18 17 5-34 U/L Alanine Aminotransferase (ALT/SGPT) 10 8 0-55 U/L Alkaline Phosphatase 68 61 40-136 U/L Total Creatine Kinase 53 29-168 U/L Creatine Kinase MB 1.0 <6.6 NG/ML Myoglobin 106.7 H 10.0-92.0 NG/ML Troponin I < 0.028 <0.028 NG/ML B-Type Natriuretic Peptide 204.5 H <100.0 PG/ML Total Protein 6.3 L 5.6 L 6.4-8.2 GM/DL Albumin 3.7 3.3 3.2-4.5 GM/DL Blood Gas Puncture Site L RADIAL Blood Gas Patient Temperature 36.8 Arterial Blood pH 7.42 7.37-7.43 Arterial Blood Partial Pressure CO2 45 35-45 MMHG Arterial Blood Partial Pressure O2 128 H 79-93 MMHG Arterial Blood HCO3 29 H 23-27 MMOL/L Arterial Blood Total CO2 30.2 21.0-31.0 MMOL/L Arterial Blood Oxygen Saturation 99 94-100 % Arterial Blood Base Excess 4.4 H -2.5-2.5 MMOL/L Josué Test YES-POS Blood Gas Ventilator Setting NO Blood Gas Inspired Oxygen 3L Absolute Reticulocyte Count 174 H 24-90 10e9/uL Percent Reticulocyte Count 7.26 H 0.50-2.40 % Phosphorus Level 3.4 2.3-4.7 MG/DL Test 06/21/22 04:50 Range/Units White Blood Count 7.2 4.3-11.0 10^3/uL Red Blood Count 2.31 L 3.80-5.11 10^6/uL Hemoglobin 7.0 L 11.5-16.0 g/dL Hematocrit 22 L 35-52 % Mean Corpuscular Volume 94 80-99 fL Mean Corpuscular Hemoglobin 30 25-34 pg Mean Corpuscular Hemoglobin Concent 32 32-36 g/dL Red Cell Distribution Width 20.4 H 10.0-14.5 % Platelet Count 202 130-400 10^3/uL Mean Platelet Volume 9.8 9.0-12.2 fL Immature Granulocyte % (Auto) 1 % Neutrophils (%) (Auto) 72 42-75 % Lymphocytes (%) (Auto) 16 12-44 % Monocytes (%) (Auto) 7 0-12 % Eosinophils (%) (Auto) 3 0-10 % Basophils (%) (Auto) 1 0-10 % Neutrophils # (Auto) 5.2 1.8-7.8 10^3/uL Lymphocytes # (Auto) 1.2 1.0-4.0 10^3/uL Monocytes # (Auto) 0.5 0.0-1.0 10^3/uL Eosinophils # (Auto) 0.2 0.0-0.3 10^3/uL Basophils # (Auto) 0.1 0.0-0.1 10^3/uL Immature Granulocyte # (Auto) 0.1 0.0-0.1 10^3/uL Radiology Date of Exam:06/20/22 CT ABDOMEN/PELVIS WO PROCEDURE: CT abdomen and pelvis without contrast. TECHNIQUE: Multiple contiguous axial images were obtained through the abdomen and pelvis without the use of intravenous contrast. Auto Exposure Controls were utilized during the CT exam to meet ALARA standards for radiation dose reduction. INDICATION: 76-year-old female, chest pain and pressure x2 weeks. Increasing shortness of air and fatigue, abdominal pain, nausea. CORRELATION STUDY: 11/10/2020 FINDINGS: LOWER THORAX: Sternal wires are present. Heart size enlarged. Chronic change about the lung parenchyma with perhaps minimal basilar scarring and/or atelectasis. Old healed bilateral rib fractures. LIVER: Unremarkable on unenhanced imaging. GALLBLADDER: Present and unremarkable. No bile duct dilatation. SPLEEN: Unremarkable. PANCREAS: Unremarkable. ADRENAL GLANDS: Unremarkable. KIDNEYS: Some generalized thinning and atrophic change of both kidneys. 17 mm partially exophytic low-density mass superior pole left kidney favors cyst. Calcification could be vascular versus nonobstructing stones. No ureteric obstruction. ABDOMINAL AORTA: Moderate calcification of the abdominal aorta with what appears to be likely chronic areas of a small dissection. No significant aneurysm. No pathologic enlarged aortocaval lymph nodes. GASTROINTESTINAL TRACT: Postoperative changes of the stomach. No obstruction or inflammation. Normal appendix. URINARY BLADDER: Decompressed around Morgan catheter. REPRODUCTIVE: Hysterectomy. OSSEOUS STRUCTURES: Postop changes bilateral proximal femurs and right hip with metallic artifact. Old right pubic rami fracture deformity. Advanced degenerative changes with scoliotic curvature of the visualized thoracolumbar spine. OTHER: None. IMPRESSION: 1. Negative for acute abnormality of the abdomen or pelvis. Dictated on workstation # [id number] Dict: 06/20/22 1833 Trans: 06/20/22 1842 [place] [id number] Interpreted by: LIZZETH ROBERTS DO Physical Exam Physical Exam Vital Signs Vital Signs - First Documented 06/20/22 06/20/22 06/20/22 15:39 17:23 19:59 Temp 36.8 Pulse 67 Resp 28 B/P (MAP) 111/62 Pulse Ox 100 O2 Delivery Nasal Cannula O2 Flow Rate 3.00 FiO2 28 Capillary Refill : Less Than 3 Seconds Height, Weight, BMI Height: 5'4.00" Weight: 160lbs. 4.0oz. [id number]; 35.42 BMI Method:Estimated General Appearance: No Apparent Distress, Chronically ill Eyes: Bilateral Eye PERRL, Bilateral Eye EOMI HEENT: Moist Mucous Membranes, Pale Conjunctivae (L), Pale Conjunctivae (R), Other (pale mucous membranes ) Neck: Normal Inspection, Supple Respiratory: Lungs Clear, Normal Breath Sounds, No Accessory Muscle Use, No Respiratory Distress Cardiovascular: Regular Rate, Rhythm, No Edema, Systolic Murmur, Gallop/S3 Gastrointestinal: Normal Bowel Sounds, Non Tender, Soft Extremity: Normal Inspection, Normal Range of Motion, No Pedal Edema Neurologic/Psychiatric: Alert, Oriented x3, No Motor/Sensory Deficits, Normal Mood/Affect, zinc miner blasting II-XII Norm as Tested Skin: Normal Color, Warm/Dry A/P-Cardiology Assessment/Plan Anemia, most probably GI loss on top of anemia of chronic disease. Received blood transfusion, I will give additional unit of packed RBCs Evaluate stool for occult blood, patient will need to have endoscopy. Chest pain, resembling angina, improved after blood transfusion. Paroxysmal atrial fibrillation/flutter, Patient was treated with amiodarone in the past and it was stopped due to the underlying lung disease and shortness of breath, patient is oxygen dependent Treated with Multaq and it was stopped due to the congestive heart failure She was intolerant to higher dose of beta-blockers due to bradycardia and sy ncope Currently tolerating Bystolic after increasing the dose to 5 mg daily Patient tolerating Bystolic, has been reviewed on uninterrupted oral anticoagulation, I am planning to admit her to the hospital and start loading with sotalol and then we can consider cardioversion. Patient has failed attempt for cardioversion on October 06, 2021, referred to Dr. Miller at , underwent ablation in October 2021. Has occasional breakthrough episodes of afib. Maintained on Multaq. NIKKI was done on October 06, 2021 showing dilated left atrium and left atrial appendage with no clot or thrombus, normal LV size, EF 60%, mild MR, aortic valve sclerosis with no stenosis. Failed attempt for cardioversion Coronary artery disease, history of CABG 3 done in 2006. Cardiac catheterization was done in February 2014 showing patent LUNA to the LAD, 60 percent stenosis at the distal portion of the LUNA. The proximal LAD has 90 percent stenosis with good flow supply to the LAD system. The vein graft to the obtuse marginal branch is patent with excellent flow distally and the vein graft to the right coronary artery is patent with excellent flow distally. Normal left ventricular size and systolic function. Cardiac catheterization done January 02, 2021 showing Patent LUNA to LAd, VG to the RCA. VG to the obtuse marginal branch has mod stenosis at an area followed by aneurysmal dilatation. Occluded prox circumflex artery corrected by the vein graft. Occluded prox RCA corrected by the VG. Right PDA was small vessel disease distally. Severe mid LAd stenosis corrected with the LUNA with dual supply to the LAD territory. Cardiac catheterization done on June 06, 2022 with stenting of the vein graft to the circumflex artery using skypoint stent 3.5 x 23 mm, patent LUNA to LAD and vein graft to the right coronary artery with severe [place] coronary artery disease, small vessel disease. Patient will need to restart aspirin and Plavix as soon as possible History of frequent premature ventricular contractions. Patient has episodes of frequent paroxysmal atrial tachycardia with wide-complex tachycardia, sees Dr. Miller at [facility]. She is status post Linq implantation that has been followed by Dr. Miller, it was extracted by Dr. Bedolla. Has been doing well. Continue to monitor Hypertension, borderline hypotensive. Continue to monitor blood pressure Hyperlipidemia, continue to monitor. History of carotid stenosis. Left carotid endarterectomy. Last ultrasound report showed moderate disease in the right carotid artery, more significant disease on the left side. Followed and managed by heart and vascular care. Continue to monitor. History of dizziness and lightheadedness. Reporting improvement. Continue to monitor. COPD, managment per Dr. Menjivar Pulmonary hypertension. Dr. Menjivar recommending RHC, planning for LHC and RHC ne xt month. History of renal failure Hypothyroidism followed and managed by primary care physician. Chronic renal insufficiency, patient is following with Dr. Erica Meza Clinical Quality Measures AMI/AHF: ASA po Prior to arrival: Yes (81MG THIS AM) DVT/VTE Risk/Contraindication: Contraindications-Pharm: Other *list below* Other: DARSHAN Mensah MD Jun 21, 2022 07:58
[2022-06-21] MEDS ORDERED: NS IV 500 ML 500 ML IV SCH (08:00)
[2022-06-21] MEDS: PANTOPRAZOLE 40 MG (PROTONIX) VIAL IV SCH (08:19)
[2022-06-21] MEDS: SENNOSIDES 8.6 MG (SENOKOT) TAB PO SCH ×2 (08:20→20:57)
[2022-06-21] MEDS: DOCUSATE SODIUM 100 MG (COLACE) CAP PO SCH ×2 (08:20→20:57)
--- NOTE | 2022-06-21 09:03 | Progress Note - Surgery ---
DELMI HUTCHINSON 06/21/22 0903: Subjective Date Seen by a Provider: Jun 21, 2022 Time Seen by a Provider: 08:00 Subjective/Events-last exam Pt resting comfortably. She received two unites of PRBCs yesterday increasing her Hb from 5.2 to 7. States she is feeling better with less shortness of breath and fatigue. She denies Chest pain, N/V/D, abdominal pain, blood in stool or any other complaints at this time. She has a quinones catheter in place. She has not had a BM yet this morning. Review of Systems General: No Chills, No Night Sweats HEENT: No Visual Changes Pulmonary: No Dyspnea, No Cough Cardiovascular: No: Chest Pain, Palpitations Gastrointestinal: No: Nausea, Vomiting, Abdominal Pain, Diarrhea, Melena Genitourinary: No Retention Objective Exam Vital Signs Date Time Temp Pulse Resp B/P (MAP) Pulse Ox O2 Delivery O2 Flow Rate FiO2 06/21/22 06:00 67 30 125/102 100 Nasal Cannula 2.00 06/21/22 05:00 67 30 113/56 100 Nasal Cannula 2.00 06/21/22 04:06 36.4 06/21/22 04:00 Nasal Cannula 2.00 06/21/22 04:00 67 51 113/45 100 Nasal Cannula 2.00 06/21/22 03:00 70 17 116/47 100 Nasal Cannula 2.00 06/21/22 02:00 64 27 103/42 99 Nasal Cannula 2.00 06/21/22 01:00 63 06/21/22 01:00 64 14 121/55 99 Nasal Cannula 2.00 06/21/22 00:00 Nasal Cannula 2.00 06/21/22 00:00 66 14 108/39 100 Nasal Cannula 2.00 06/20/22 23:59 Nasal Cannula 2.00 06/20/22 23:00 66 9 116/53 100 Nasal Cannula 2.00 06/20/22 22:56 36.3 Nasal Cannula 2.00 06/20/22 22:30 36.1 63 20 107/49 100 Nasal Cannula 2.00 06/20/22 22:00 67 16 125/51 100 Nasal Cannula 2.00 06/20/22 21:08 36.4 63 17 122/48 100 Nasal Cannula 2.00 06/20/22 21:00 68 17 112/54 100 Nasal Cannula 2.00 06/20/22 20:43 36.7 64 18 126/54 100 Nasal Cannula 2.00 06/20/22 20:28 36.4 65 14 124/62 100 Nasal Cannula 2.00 06/20/22 20:00 Nasal Cannula 2.00 06/20/22 20:00 67 35 125/58 100 Nasal Cannula 2.00 06/20/22 19:59 36.8 65 100 28 06/20/22 19:48 36.5 66 20 123/59 100 Nasal Cannula 2.00 06/20/22 19:00 36.4 Nasal Cannula 2.00 06/20/22 19:00 65 06/20/22 17:38 36.4 65 25 113/58 100 Nasal Cannula 2.00 06/20/22 17:33 36.4 67 28 115/55 100 Nasal Cannula 2.00 06/20/22 17:28 36.3 67 29 116/57 100 Nasal Cannula 2.00 06/20/22 17:23 36.4 65 20 111/62 100 Nasal Cannula 2.00 06/20/22 15:39 36.8 67 28 100 Nasal Cannula 3.00 I & O 06/21/22 07:00 Intake Total 2020 ml Output Total 1120 ml Balance 900 ml Capillary Refill : Less Than 3 Seconds General Appearance: No Apparent Distress, Chronically ill, Obese HEENT: PERRL/EOMI, Moist Mucous Membranes, Other (pale mucous membranes ) Neck: Non Tender, Supple Respiratory: Lungs Clear, Normal Breath Sounds, No Accessory Muscle Use, No Respiratory Distress Cardiovascular: Regular Rate, Rhythm, No Edema Peripheral Pulses: 2+ Radial Pulses (R), 2+ Radial Pulses (L) Gastrointestinal: normal bowel sounds, non tender, soft, no organomegaly, hernia (found in 2013) Extremity: Non Tender, No Calf Tenderness, No Pedal Edema Neurologic/Psychiatric: Alert, Oriented x3, Normal Mood/Affect Skin: Normal Color, Warm/Dry Lymphatic: No Adenopathy (of supraclavicular or axillary nodes. ) Results Lab Laboratory Tests 06/20/22 15:57: White Blood Count 9.8, Red Blood Count 1.63L, Hemoglobin 5.2*L, Hematocrit 17*L, Mean Corpuscular Volume 103H, Mean Corpuscular Hemoglobin 32, Mean Corpuscular Hemoglobin Concent 31L, Red Cell Distribution Width 19.6H, Platelet Count 284, Mean Platelet Volume 9.9, Immature Granulocyte % (Auto) 1, Neutrophils (%) (Auto) 76H, Lymphocytes (%) (Auto) 15, Monocytes (%) (Auto) 6, Eosinophils (%) (Auto) 1, Basophils (%) (Auto) 1, Neutrophils # (Auto) 7.4, Lymphocytes # (Auto) 1.5, Monocytes # (Auto) 0.6, Eosinophils # (Auto) 0.1, Basophils # (Auto) 0.1, Immature Granulocyte # (Auto) 0.1, Prothrombin Time 29.2H, INR Comment 2.7H, Activated Partial Thromboplast Time 39H, D-Dimer 0.31, Sodium Level 135, Potassium Level 3.5L, Chloride Level 94L, Carbon Dioxide Level 27, Anion Gap 14, Blood Urea Nitrogen 35H, Creatinine 1.62H, Estimat Glomerular Filtration Rate 33, BUN/Creatinine Ratio 22, Glucose Level 126H, Calcium Level 8.9, Corrected Calcium 9.1, Magnesium Level 2.1, Total Bilirubin 0.6, Aspartate Amino Transf (AST/SGOT) 18, Alanine Aminotransferase (ALT/SGPT) 10, Alkaline Phosphatase 68, Total Creatine Kinase 53, Creatine Kinase MB 1.0, Myoglobin 106.7H, Troponin I < 0.028, B-Type Natriuretic Peptide 204.5H, Total Protein 6.3L, Albumin 3.7 06/20/22 16:08: Blood Gas Puncture Site L RADIAL, Blood Gas Patient Temperature 36.8, Arterial Blood pH 7.42, Arterial Blood Partial Pressure CO2 45, Arterial Blood Partial Pressure O2 128H, Arterial Blood HCO3 29H, Arterial Blood Total CO2 30.2, Arterial Blood Oxygen Saturation 99, Arterial Blood Base Excess 4.4H, Josué Test YES-POS, Blood Gas Ventilator Setting NO, Blood Gas Inspired Oxygen 3L 06/21/22 00:20: Red Blood Count 2.40L, Hemoglobin 7.3#L, Hematocrit 22L, Absolute Reticulocyte Count 174H, Percent Reticulocyte Count 7.26H 06/21/22 04:30: Sodium Level 139, Potassium Level 3.4L, Chloride Level 101, Carbon Dioxide Level 27, Anion Gap 11, Blood Urea Nitrogen 30H, Creatinine 1.45H, Estimat Glomerular Filtration Rate 38, BUN/Creatinine Ratio 21, Glucose Level 144H, Calcium Level 8.5, Corrected Calcium 9.1, Magnesium Level 2.1, Total Bilirubin 1.1H, Aspartate Amino Transf (AST/SGOT) 17, Alanine Aminotransferase (ALT/SGPT) 8, Alkaline Phosphatase 61, Total Protein 5.6L, Albumin 3.3, Phosphorus Level 3.4 06/21/22 04:50: White Blood Count 7.2, Red Blood Count 2.31L, Hemoglobin 7.0L, Hematocrit 22L, Mean Corpuscular Volume 94, Mean Corpuscular Hemoglobin 30, Mean Corpuscular Hemoglobin Concent 32, Red Cell Distribution Width 20.4H, Platelet Count 202, Mean Platelet Volume 9.8, Immature Granulocyte % (Auto) 1, Neutrophils (%) (Auto) 72, Lymphocytes (%) (Auto) 16, Monocytes (%) (Auto) 7, Eosinophils (%) (Auto) 3, Basophils (%) (Auto) 1, Neutrophils # (Auto) 5.2, Lymphocytes # (Auto) 1.2, Monocytes # (Auto) 0.5, Eosinophils # (Auto) 0.2, Basophils # (Auto) 0.1, Immature Granulocyte # (Auto) 0.1 Assessment/Plan Assessment/Plan Assessment/Plan Anemia - Hb 5.2 Afib CAD Pt received 2 units PRBCs, increasing her Hb to 7 this morning. She had a colonoscopy and EGD x 3 months ago and has no signs of obvious bleeding (no abdominal pain, no blood in stool or vomit). She is not a surgical candidate at the moment. Continue to monitor labs, abdominal checks and transfuse if Hb <7. Clinical Quality Measures AMI/AHF: ASA po Prior to arrival: Yes (81MG THIS AM) DVT/VTE Risk/Contraindication: Contraindications-Pharm: Other *list below* Other: CHIDI Presley DO 06/21/22 1435: Subjective Time Seen by a Provider: 12:51 Subjective/Events-last exam Pt seen and examined, states she still feels "pretty weak" but better. Still having some SOB. She denied any hematemesis, coffee ground emesis, hematochezia or melena. Review of Systems General: No Chills, No Night Sweats; Fatigue, Malaise HEENT: Head Aches Pulmonary: No Dyspnea, No Cough Cardiovascular: No: Chest Pain, Palpitations Gastrointestinal: No: Nausea, Vomiting, Abdominal Pain, Diarrhea, Melena Genitourinary: No Retention Objective Exam General Appearance: No Apparent Distress, Chronically ill, Obese HEENT: PERRL/EOMI, Moist Mucous Membranes, Other (pale mucous membranes ) Respiratory: Lungs Clear, Normal Breath Sounds, No Accessory Muscle Use, No Respiratory Distress Cardiovascular: Regular Rate, Rhythm Gastrointestinal: normal bowel sounds, non tender, soft, no organomegaly, hernia (found in 2013) Extremity: Non Tender, No Calf Tenderness, No Pedal Edema Assessment/Plan Assessment/Plan Assessment/Plan Anemia Afib CAD Pt received 2 units PRBCs, increasing her Hb to 7 this morning. She was given another unit by Dr. Russell. Had a colonoscopy and EGD x 3 months ago and has no signs of obvious bleeding (no abdominal pain, no blood in stool or vomit). She does not need any surgery at the moment. Continue to monitor labs, abdominal checks and transfuse as needed. Supervisory-Addendum Brief Verification & Attestation Participated in pt care: history, MDM, physical Personally performed: exam, history, MDM, supervision of care Care discussed with: Medical Student Procedures: n/a Verification and Attestation of Medical Student E/M Service A medical student performed and documented this service. I then reviewed and verified all information documented by the medical student and made modifications to such information, when appropriate. I personally performed a physical exam, medical decision making and then discussed any differences between the notes and made revisions as necessary to create one note. Chidi Skinner , 06/21/22 , 14:34 DELMI HUTCHINSON Jun 21, 2022 09:03 CHIDI SKINNER DO Jun 21, 2022 14:35
[2022-06-21 09:07] VITALS: BP 117/66
[2022-06-21 09:23] VITALS: BP 133/77
[2022-06-21] MEDS ORDERED: FUROSEMIDE 40 MG/4 ML INJ (LASIX) IVP ONE (09:45)
--- NOTE | 2022-06-21 09:46 | Tele-ICU Progress Note ---
Subjective Date Seen by a Provider: Jun 21, 2022 Time Seen by a Provider: 09:46 Subjective/Events-last exam (Tele-ICU Physician , Progress Note ) Available chart/ vitals / labs / Images reviewed Video assessment done using teleICU camera, rest of exam as per RN Discussed with RN Events overnight : Afebrile hemodynamically stable Respiratory - I/O = Drips: Pressors- no Consultants: Hospital course: 76F with COPD on 2L home O2, afib, chronic anemia, hypertension, hypothyroid, CAD s/p PCI with stent x2 06/07/22 with progressive worsening of CP, SOB, fatigue and weakness since that time. In ED found to have Hg 5.2, down from 9 at the time of the cath, CT abd pelvis - no abnormalities 06/21 - s/p 2 units PRBC , getting #3 A/P Anemia, chronic, (Hg 5.2 on admission -Work up 3 months ago in [place], including colonoscopy, was negative., secondary to chronic blood loss, possibly accelerated after addition of xarelto vs destructive process vs bone marrow suppression vs multifactorial. - s/p transfusion 2 units 06/20- Hb 7.0 , getting #3 now no active bleeding - sx consulted - xarelto on hold ( no reversal agent given ) TAM - mild - monitor, improving CAD - s/p stents x2 06/07/22 COPD -on 2L home O2 - cxr with conjestion , but at baseline O2 needs - cont ICS / home meds Pulmonary HTN -resume diuresis -as per cards , lasix x 1 now with transfusions A fib - rate controlled - was on xarelto [employer] Coagulopathy: on xarelto, - INR of 2.7 on admisssion Lines : , (Central Line Necessity Reviewed) Morgan: OG: Nutrition: Analgesia: Anxiety/ delirium VTE Prophylaxis:scd, resume AC when stable Stress Ulcer Prophylaxis: na Plans in collaboration with bedside consultants and IM MDs. Discussed with RN to reach out if any questions or concerns A total of 25 minutes of critical care time was devoted to this patient today, required to treat and/or prevent further deterioration of critical care condition ( as above ) . Sepsis Event Evaluation Height, Weight, BMI Height: 5'4.00" Weight: 160lbs. 4.0oz. [id number]; 35.42 BMI Method:Estimated Exam Exam Patient acknowledged, consented, and participated in this virtual visit which was conducted using real time audio/video Vital Signs Date Time Temp Pulse Resp B/P (MAP) Pulse Ox O2 Delivery O2 Flow Rate FiO2 06/21/22 09:23 36.2 71 18 133/77 100 Nasal Cannula 2.00 06/21/22 09:07 36.1 66 18 117/66 100 Nasal Cannula 2.00 06/21/22 06:00 67 30 125/102 100 Nasal Cannula 2.00 06/21/22 05:00 67 30 113/56 100 Nasal Cannula 2.00 06/21/22 04:06 36.4 06/21/22 04:00 Nasal Cannula 2.00 06/21/22 04:00 67 51 113/45 100 Nasal Cannula 2.00 06/21/22 03:00 70 17 116/47 100 Nasal Cannula 2.00 06/21/22 02:00 64 27 103/42 99 Nasal Cannula 2.00 06/21/22 01:00 63 06/21/22 01:00 64 14 121/55 99 Nasal Cannula 2.00 06/21/22 00:00 Nasal Cannula 2.00 06/21/22 00:00 66 14 108/39 100 Nasal Cannula 2.00 06/20/22 23:59 Nasal Cannula 2.00 06/20/22 23:00 66 9 116/53 100 Nasal Cannula 2.00 06/20/22 22:56 36.3 Nasal Cannula 2.00 06/20/22 22:30 36.1 63 20 107/49 100 Nasal Cannula 2.00 06/20/22 22:00 67 16 125/51 100 Nasal Cannula 2.00 06/20/22 21:08 36.4 63 17 122/48 100 Nasal Cannula 2.00 06/20/22 21:00 68 17 112/54 100 Nasal Cannula 2.00 06/20/22 20:43 36.7 64 18 126/54 100 Nasal Cannula 2.00 06/20/22 20:28 36.4 65 14 124/62 100 Nasal Cannula 2.00 06/20/22 20:00 Nasal Cannula 2.00 06/20/22 20:00 67 35 125/58 100 Nasal Cannula 2.00 06/20/22 19:59 36.8 65 100 28 06/20/22 19:48 36.5 66 20 123/59 100 Nasal Cannula 2.00 06/20/22 19:00 36.4 Nasal Cannula 2.00 06/20/22 19:00 65 06/20/22 17:38 36.4 65 25 113/58 100 Nasal Cannula 2.00 06/20/22 17:33 36.4 67 28 115/55 100 Nasal Cannula 2.00 06/20/22 17:28 36.3 67 29 116/57 100 Nasal Cannula 2.00 06/20/22 17:23 36.4 65 20 111/62 100 Nasal Cannula 2.00 06/20/22 15:39 36.8 67 28 100 Nasal Cannula 3.00 I & O 06/21/22 06:59 Intake Total 2020 ml Output Total 1120 ml Balance 900 ml Height & Weight Height: 5'4.00" Weight: 160lbs. 4.0oz. [id number]; 35.42 BMI Method:Estimated General Appearance: No Apparent Distress, Chronically ill, Obese HEENT: PERRL/EOMI, Moist Mucous Membranes, Other (pale mucous membranes ) Neck: Non Tender, Supple Respiratory: Lungs Clear, Normal Breath Sounds, No Accessory Muscle Use, No Respiratory Distress Cardiovascular: Regular Rate, Rhythm, No Edema Capillary Refill: Less Than 3 Seconds Peripheral Pulses: 2+ Radial Pulses (R), 2+ Radial Pulses (L) Gastrointestinal: normal bowel sounds, non tender, soft, no organomegaly, hernia (found in 2013) Extremity: Non Tender, No Calf Tenderness, No Pedal Edema Neurologic/Psychiatric: Alert, Oriented x3, Normal Mood/Affect Skin: Normal Color, Warm/Dry Lymphatic: No Adenopathy (of supraclavicular or axillary nodes. ) Results Lab Laboratory Tests 06/20/22 15:57 06/21/22 00:20 06/21/22 04:30 06/21/22 04:50 Assessment/Plan Assessment/Plan 1 EMMA SCHNEIDER MD Jun 21, 2022 09:46
[2022-06-21 11:12] VITALS: BP 119/54
[2022-06-21] MEDS ORDERED: NYST1000 PO (11:41)
[2022-06-21] MEDS ORDERED: ASPI-1238 PO (11:41)
[2022-06-21] MEDS ORDERED: HYDR-3820 PO (11:41)
[2022-06-21] MEDS ORDERED: CLOP75TA28 PO (11:41)
[2022-06-21] MEDS: NS IV 1000 ML 1,000 ML IV SCH (12:05)
[2022-06-21] MEDS ORDERED: NYSTATIN ORAL SUSP 5 ML UDC PO PRN (13:00)
[2022-06-21] MEDS ORDERED: NITROGLYCERIN 0.4 MG SL TABS BTL 25'S SL PRN (13:00)
[2022-06-21] MEDS ORDERED: RT-ALBUTEROL SULF 2.5 MG/3 ML PRE-MIX VIAL IH PRN (13:00)
--- NOTE | 2022-06-21 14:31 | History & Physical ---
CLARICE KAPLAN 06/21/22 1431: History of Present Illness History of Present Illness Reason for visit/HPI Gem Noland is a 76y/o F w/ a PMH of CAD, CKD, and anemia who presented to the ED yesterday due to SOB and fatigue. Pt reports that after she underwent a heart cath w/ Dr. Russell on 06/07, where she had [address], she began having worsening SOB and fatigue. Hgb was 9 at the time of that procedure. Yesterday the SOB and fatigue had gotten to the pt where she could only take 1-2 steps before she had to stop to catch her breath. Had also been having some intermittent nausea. It was at that pt that she decided she needed to go to the ER. Denies that she had been having any bloody stools, hematuria, or hematemesis. Unsure if she had been having any melanic stools as she has been taking iron supplements which has darkened the color of her stool she reports. Endorses having occasional light nose bleeds. Had been on Xarelto due to Hx of Afib. Hgb was found to be 5.4 in the ED and she received 2 units of blood. Today she reports that she is feeling much better but still feels weak. SOB has improved but she has not tried to get up and ambulate yet. Nausea has resolved. Did report that she was seen for her anemia 3 months ago and had an EGD and colonoscopy done at [facility] and no abnormalities were found. Date of Admission Jun 20, 2022 at 18:21 Date Seen by a Provider: Jun 21, 2022 Time Seen by a Provider: 09:53 I consulted on this patient on 06/21/22 14:22 Attending Physician Admitting Physician Admitting Physician: Melonie Sexton DO Attending Physician: Melonie Sexton DO Consult Allergies and Home Medications Allergies Coded Allergies: Penicillins (Verified Allergy, Unknown, RASH, HAS HAD ROCEPHIN IN THE PAST W/O ISSUE, 09/27/16) clarithromycin (Verified Allergy, Unknown, 09/27/16) erythromycin base (Verified Allergy, Unknown, 09/27/16) levofloxacin (Verified Allergy, Unknown, 09/04/17) morphine (Verified Allergy, Unknown, TAKES LORTAB AT HOME, 09/27/16) Patient Home Medication List Home Medication List Reviewed: Yes Acetaminophen (Tylenol Extra Strength) 500 Mg Tablet, 1,000 MG PO Q8H PRN for PAIN-MILD (1-4), (Reported) Entered as Reported by: CEASAR GOFF on 12/28/201454 Last Action: Held Albuterol Sulfate (Proair Hfa) 1 Puff Puff, 1 PUFF IH Q4H PRN for SHORTNESS OF BREATH, (Reported) Entered as Reported by: CEASAR GOFF on 12/28/201454 Last Action: Continued Allopurinol (Allopurinol) 300 Mg Tablet, 300 MG PO DAILY, (Reported) Entered as Reported by: CEASAR GOFF on 12/28/201454 Last Action: Continued Aspirin (Aspirin EC) 81 Mg Tablet., 81 MG PO DAILY, (Reported) Entered as Reported by: KHOA LI on 06/21/221140 Last Action: Held Budesonide/Formoterol Fumarate (Symbicort 160-4.5 Mcg Inhaler) 10.2 Gm Hfa.aer.ad, 2 PUFF IH BID, (Reported) Entered as Reported by: CAT RAHMAN on 10/06/211128 Last Action: Converted Cholecalciferol (Vitamin D3) (Vitamin D3) 125 Mcg Capsule, 125 MCG PO DAILY, (Reported) Entered as Reported by: CEASAR GOFF on 12/28/201454 Last Action: Converted Clopidogrel Bisulfate (Clopidogrel) 75 Mg Tablet, 75 MG PO DAILY, (Reported) Entered as Reported by: KHOA LI on 06/21/221140 Last Action: Held Dronedarone HCl (Multaq) 400 Mg Tablet, 400 MG PO BID, (Reported) Entered as Reported by: YAQUELIN SHAHID on 06/06/221328 Last Action: Held Duloxetine HCl (Cymbalta) 30 Mg Capsule., 30 MG PO HS, (Reported) Entered as Reported by: YAQUELIN SHAHID on 06/06/221328 Last Action: Continued Ferrous Sulfate (Iron) 325 Mg (65 Mg Iron) Tablet, 325 MG PO HS, (Reported) Entered as Reported by: CEASAR GOFF on 12/28/201454 Last Action: Held Furosemide (Lasix) 40 Mg Tablet, 40 MG PO DAILY, (Reported) Entered as Reported by: CAT RAHMAN on 10/06/21 112 Last Action: Held Hydrocodone/Acetaminophen (Hydrocodone-Acetamin 10-325 mg) 10 Mg-325 Mg Tablet, 1 EACH PO Q6H PRN for PAIN-MODERATE (5-7), (Reported) Entered as Reported by: KHOA LI on 06/21/22 114 Last Action: Continued Isosorbide Mononitrate (Isosorbide Mononitrate ER) 30 Mg Tab.er.24h, 30 MG PO DAILY, (Reported) Entered as Reported by: YAQUELIN SHAHID on 06/06/221328 Last Action: Continued Krill Oil (Krill Oil) 500 Mg Capsule, 500 MG PO HS, (Reported) Entered as Reported by: YAQUELIN SHAHID on 06/06/221328 Last Action: Held Levothyroxine Sodium (Levothyroxine Sodium) 112 Mcg Tablet, 112 MCG PO DAILY, (Reported) Entered as Reported by: CAT RAHMAN on 10/06/21 1200 Last Action: Continued Magnesium Oxide (Magnesium) 400 Mg Tablet, 400 MG PO DAILY, (Reported) Entered as Reported by: CAT RAHMAN on 10/06/21 112 Last Action: Converted Montelukast Sodium (Montelukast Sodium) 10 Mg Tablet, 10 MG PO HS, (Reported) Entered as Reported by: CEASAR GOFF on 12/28/20 1455 Last Action: Continued Nebivolol HCl (Bystolic) 5 Mg Tablet, 2.5 MG PO BID, (Reported) Entered as Reported by: YAQUELIN SHAHID on 06/06/221328 Last Action: Converted Nitroglycerin (Nitroglycerin) 0.4 Mg Tab.subl, 0.4 MG SL UD PRN for CHEST PAIN, (Reported) Entered as Reported by: YAQUELIN SHAHID on 06/06/221328 Last Action: Continued Nystatin (Nystatin) 100,000 Unit/Ml Oral.susp, 4 ML PO BID PRN for THRUSH PREVENTION, (Reported) Entered as Reported by: KHOA LI on 06/21/22 114 Last Action: Continued Potassium Chloride (Potassium Chloride) 10 Meq Capsule.er, 10 MEQ PO DAILY, (Reported) Entered as Reported by: YAQUELIN SHAHID on 06/06/221328 Last Action: Converted Rivaroxaban (Xarelto) 20 Mg Tablet, 20 MG PO HS, (Reported) Entered as Reported by: CEASAR GOFF on 12/28/201454 Last Action: Held Rosuvastatin Calcium (Crestor) 20 Mg Tablet, 20 MG PO HS, (Reported) Entered as Reported by: CAT RAHMAN on 10/06/21 112 Last Action: Continued Discontinued Medications Aspirin (Aspirin EC) 81 Mg Tablet.dr, 81 MG PO DAILY Discontinued Reason: Duplicate Order Prescribed by: DARSHAN RUSSELL on 06/07/22635 Last Action: Discontinued Clopidogrel Bisulfate (Clopidogrel) 75 Mg Tablet, 75 MG PO DAILY Discontinued Reason: Duplicate Order Prescribed by: DARSHAN RUSSELL on 06/07/22634 Last Action: Discontinued Multivitamin (Multivitamin) 1 Each Tablet, 1 EACH PO DAILY, (Reported) Discontinued Reason: No Longer Taking Entered as Reported by: CEASAR GOFF on 12/28/201454 Last Action: Discontinued Nebivolol HCl (Bystolic) 2.5 Mg Tablet, 2.5 MG PO HS, (Reported) Discontinued Reason: No Longer Taking Entered as Reported by: YAQUELIN SHAHID on 06/06/221328 Last Action: Discontinued Pantoprazole Sodium (Protonix) 40 Mg , 40 MG PO DAILY Discontinued Reason: No Longer Taking Prescribed by: DARSHAN RUSSELL on 06/07/22635 Last Action: Discontinued [La Place 10MG-325 Mg] , 1 TAB PO Q4-6HRS PRN for PAIN-MODERATE (5-7), (Reported) Discontinued Reason: No Longer Taking Entered as Reported by: YAQUELIN SHAHID on 06/06/221328 Last Action: Discontinued Past Ibetfba-Ooumib-Gpkcol Hx Patient Social History Marrital Status: Employed/Student: retired Tobacco Use?: No Smoking Status: Former Smoker Use of E-Cig and/or Vaping dev: No Substance use?: No Alcohol Use?: No Immunizations Up To Date Date of Influenza Vaccine: Jul 12, 2021 First/Initial COVID19 Vaccinat: 2020 Second COVID19 Vaccination Willie: 2020 Date of Pneumonia Vaccine: Jan 05, 2019 Seasonal Allergies Seasonal Allergies: No Current Status Advance Directives: No Communicates: Verbally Primary Language: Welsh Preferred Spoken Language: Welsh Past Medical History Surgeries: Abdominal (stomach stapling), Coronary Stent, Hysterectomy, Orthopedic (right hip) COPD Atrial Fibrillation, Coronary Artery Disease, Hypertension Neuropathy Renal Failure, UTI-Chronic Gastroesophageal Reflux Arthritis, Chronic Back Pain, Fractures Hyperthyroidism Cataract Loss of Vision: Denies Hearing Impairment: Hard of Hearing Anxiety, Depression Eczema, Recent Skin Changes Blood Disorders: No Adverse Reaction/Blood Tranf: No Family Medical History Cardiovascular disease 19 FATHER 19 MOTHER G8 BROTHER G8 BROTHER FH: CHF (congestive heart failure) 19 MOTHER G8 BROTHER Myocardial infarction 19 FATHER G8 BROTHER G8 BROTHER Heart Disease Review of Systems Constitutional: No chills, No fever EENTM: blurred vision (has been a chronic issue); No double vision, No eye pain Respiratory: No short of breath Cardiovascular: No chest pain, No palpitations Gastrointestinal: No abdominal pain, No hematemesis, No vomiting Genitourinary: No dysuria, No hematuria Musculoskeletal: No muscle pain; muscle weakness Psychiatric/Neurological: Headache, Numbness (chronic) Physical Exam Vital Signs Vital Signs - First Documented 06/20/22 06/20/22 06/20/22 15:39 17:23 19:59 Temp 36.8 Pulse 67 Resp 28 B/P (MAP) 111/62 Pulse Ox 100 O2 Delivery Nasal Cannula O2 Flow Rate 3.00 FiO2 28 Capillary Refill : Less Than 3 Seconds Height, Weight, BMI Height: 5'4.00" Weight: 160lbs. 4.0oz. [id number]; 35.42 BMI Method:Estimated General Appearance: No Apparent Distress, WD/WN HEENT: PERRL/EOMI; No Photophobia Neck: Non Tender, Supple Respiratory: Chest Non Tender, Lungs Clear, Normal Breath Sounds, No Accessory Muscle Use, No Respiratory Distress Cardiovascular: Regular Rate, Rhythm, Systolic Murmur Gastrointestinal: Non Tender, Soft Extremity: Non Tender, No Calf Tenderness, No Pedal Edema Neurologic/Psychiatric: Alert, Oriented x3, Normal Mood/Affect Skin: Normal Color, Warm/Dry Lymphatic: No Adenopathy Assessment/Plan Assessment and Plan Anemia -Hgb of 5.4 on admission, currently 8.4 -2U of pRBCs last night and 1U this AM -gen surg consulted -eICU consulted -iron panel pending -Protonix for GI prophylaxis -continue to monitor Hgb closely, will need another transfusion if Hgb goes below 7 Atrial fibrillation -rate controlled -underwent ablation in October 2021 at [facility] -was on Xarelto, has been stopped -cardiology consulted CKD -followed by nephrology as an outpt -BUN and Cr close to pt's baseline -will continue to monitor RFTs Pulmonary HTN -CXR showed some central pulmonary venous congestion. -starting lasix Hypokalemia -K+ of 3.4 today -on 10mEq of K+ daily, will continue to monitor Hypothyroidism -restart home levothyroxine HLD -Crestor 20mg In ICU DVT prophylaxis: SCDs, anticoagulation contraindicated Code status: full code Diet: regular Clinical Quality Measures AMI/AHF: ASA po Prior to arrival: Yes (81MG THIS AM) DVT/VTE Risk/Contraindication: Contraindications-Pharm: Other *list below* Other: MELONIE Palomino DO 06/22/22 0547: History of Present Illness History of Present Illness Reason for visit/HPI Chief complaint: Symptomatic anemia severe in type History of present illness: This is a 76-year-old female clinic patient of [facility] with multiple comorbidities including atrial fibrillation status post ablation and congestive heart failure along with severe COPD oxygen dependent who presented to the ER with shortness of breath found to have hemoglobin of 5.4 requiring 2 units of blood yesterday and additional [address] Russell. She was previously on Plavix and aspirin and Eliquis. No pain is reported. Patient reports feeling much better and just overall much improved. Allergies and Home Medications Allergies Coded Allergies: Penicillins (Verified Allergy, Unknown, RASH, HAS HAD ROCEPHIN IN THE PAST W/O ISSUE, 09/27/16) clarithromycin (Verified Allergy, Unknown, 09/27/16) erythromycin base (Verified Allergy, Unknown, 09/27/16) levofloxacin (Verified Allergy, Unknown, 09/04/17) morphine (Verified Allergy, Unknown, TAKES LORTAB AT HOME, 09/27/16) Patient Home Medication List Acetaminophen (Tylenol Extra Strength) 500 Mg Tablet, 1,000 MG PO Q8H PRN for PAIN-MILD (1-4), (Reported) Entered as Reported by: CEASAR GOFF on 12/28/20 5101 Last Action: Held Albuterol Sulfate (Proair Hfa) 1 Puff Puff, 1 PUFF IH Q4H PRN for SHORTNESS OF BREATH, (Reported) Entered as Reported by: CEASAR GOFF on 12/28/201454 Last Action: Continued Allopurinol (Allopurinol) 300 Mg Tablet, 300 MG PO DAILY, (Reported) Entered as Reported by: CEAASR GOFF on 12/28/201454 Last Action: Continued Aspirin (Aspirin EC) 81 Mg Tablet.dr, 81 MG PO DAILY, (Reported) Entered as Reported by: KHOA LI on 06/21/221140 Last Action: Held Budesonide/Formoterol Fumarate (Symbicort 160-4.5 Mcg Inhaler) 10.2 Gm Hfa.aer.ad, 2 PUFF IH BID, (Reported) Entered as Reported by: CAT RAHMAN on 10/06/211128 Last Action: Converted Cholecalciferol (Vitamin D3) (Vitamin D3) 125 Mcg Capsule, 125 MCG PO DAILY, (Reported) Entered as Reported by: CEASAR GOFF on 12/28/201454 Last Action: Converted Clopidogrel Bisulfate (Clopidogrel) 75 Mg Tablet, 75 MG PO DAILY, (Reported) Entered as Reported by: KHOA LI on 06/21/221140 Last Action: Held Dronedarone HCl (Multaq) 400 Mg Tablet, 400 MG PO BID, (Reported) Entered as Reported by: YAQUELIN SHAHID on 06/06/221328 Last Action: Held Duloxetine HCl (Cymbalta) 30 Mg Capsule.dr, 30 MG PO HS, (Reported) Entered as Reported by: YAQUELIN SHAHID on 06/06/221328 Last Action: Continued Ferrous Sulfate (Iron) 325 Mg (65 Mg Iron) Tablet, 325 MG PO HS, (Reported) Entered as Reported by: CEASAR GOFF on 12/28/201454 Last Action: Held Furosemide (Lasix) 40 Mg Tablet, 40 MG PO DAILY, (Reported) Entered as Reported by: CAT RAHMAN on 10/06/211128 Last Action: Held Hydrocodone/Acetaminophen (Hydrocodone-Acetamin 10-325 mg) 10 Mg-325 Mg Tablet, 1 EACH PO Q6H PRN for PAIN-MODERATE (5-7), (Reported) Entered as Reported by: KHOA LI on 8/25/22 1141 Last Action: Continued Isosorbide Mononitrate (Isosorbide Mononitrate ER) 30 Mg Tab.er.24h, 30 MG PO DAILY, (Reported) Entered as Reported by: YAQUELIN SHAHID on 06/06/221328 Last Action: Continued Krill Oil (Krill Oil) 500 Mg Capsule, 500 MG PO HS, (Reported) Entered as Reported by: YAQUELIN SHAHID on 06/06/221328 Last Action: Held Levothyroxine Sodium (Levothyroxine Sodium) 112 Mcg Tablet, 112 MCG PO DAILY, (Reported) Entered as Reported by: CAT RAHMAN on 10/06/21 1200 Last Action: Continued Magnesium Oxide (Magnesium) 400 Mg Tablet, 400 MG PO DAILY, (Reported) Entered as Reported by: CAT RAHMAN on 10/06/211128 Last Action: Converted Montelukast Sodium (Montelukast Sodium) 10 Mg Tablet, 10 MG PO HS, (Reported) Entered as Reported by: CEASAR GOFF on 12/28/20 145 Last Action: Continued Nebivolol HCl (Bystolic) 5 Mg Tablet, 2.5 MG PO BID, (Reported) Entered as Reported by: YAQUELIN SHAHID on 06/06/221328 Last Action: Converted Nitroglycerin (Nitroglycerin) 0.4 Mg Tab.subl, 0.4 MG SL UD PRN for CHEST PAIN, (Reported) Entered as Reported by: YAQUELIN SHAHID on 06/06/221328 Last Action: Continued Nystatin (Nystatin) 100,000 Unit/Ml Oral.susp, 4 ML PO BID PRN for THRUSH PREVENTION, (Reported) Entered as Reported by: KHOA LI on 06/21/22 114 Last Action: Continued Potassium Chloride (Potassium Chloride) 10 Meq Capsule.er, 10 MEQ PO DAILY, (Reported) Entered as Reported by: YAQUELIN SHAHID on 06/06/221328 Last Action: Converted Rivaroxaban (Xarelto) 20 Mg Tablet, 20 MG PO HS, (Reported) Entered as Reported by: CEASAR GOFF on 12/28/20 1455 Last Action: Held Rosuvastatin Calcium (Crestor) 20 Mg Tablet, 20 MG PO HS, (Reported) Entered as Reported by: CAT RAHMAN on 10/06/21 1129 Last Action: Continued Discontinued Medications Aspirin (Aspirin EC) 81 Mg Tablet., 81 MG PO DAILY Discontinued Reason: Duplicate Order Prescribed by: DARSHAN RUSSELL on 06/07/22635 Last Action: Discontinued Clopidogrel Bisulfate (Clopidogrel) 75 Mg Tablet, 75 MG PO DAILY Discontinued Reason: Duplicate Order Prescribed by: DARSHAN RUSSELL on 06/07/22 0635 Last Action: Discontinued Multivitamin (Multivitamin) 1 Each Tablet, 1 EACH PO DAILY, (Reported) Discontinued Reason: No Longer Taking Entered as Reported by: CEASAR GOFF on 12/28/20 0645 Last Action: Discontinued Nebivolol HCl (Bystolic) 2.5 Mg Tablet, 2.5 MG PO HS, (Reported) Discontinued Reason: No Longer Taking Entered as Reported by: YAQUELIN SHAHID on 06/06/22 1329 Last Action: Discontinued Pantoprazole Sodium (Protonix) 40 Mg , 40 MG PO DAILY Discontinued Reason: No Longer Taking Prescribed by: DARSHAN RUSSELL on 06/07/22635 Last Action: Discontinued [La Place 10MG-325 Mg] , 1 TAB PO Q4-6HRS PRN for PAIN-MODERATE (5-7), (Reported) Discontinued Reason: No Longer Taking Entered as Reported by: YAQUELIN SHAHID on 06/06/221328 Last Action: Discontinued Past Qhzegsg-Kpsiph-Omjjaf Hx Patient Social History Marrital Status: Employed/Student: retired Smoking Status: Former Smoker Past Medical History COPD Atrial Fibrillation, Coronary Artery Disease, Hypertension Neuropathy Family Medical History Cardiovascular disease 19 FATHER 19 MOTHER G8 BROTHER G8 BROTHER FH: CHF (congestive heart failure) 19 MOTHER G8 BROTHER Myocardial infarction 19 FATHER G8 BROTHER G8 BROTHER Review of Systems Constitutional: see HPI, malaise, weakness Respiratory: dyspnea on exertion Physical Exam General Appearance: WD/WN, Anxious, Chronically ill, Mild Distress Eyes: Bilateral Eye Normal Inspection, Bilateral Eye PERRL, Bilateral Eye EOMI HEENT: PERRL/EOMI, Normal ENT Inspection, Pharynx Normal Neck: Full Range of Motion, Normal Inspection, Non Tender, Supple, Carotid Bruit Respiratory: Chest Non Tender, Lungs Clear, No Accessory Muscle Use, No Respiratory Distress, Decreased Breath Sounds Cardiovascular: Regular Rate, Rhythm, No Edema, No Gallop, No JVD, No Murmur, Normal Peripheral Pulses Gastrointestinal: Normal Bowel Sounds, No Organomegaly, No Pulsatile Mass, Non Tender, Soft Back: Normal Inspection, No CVA Tenderness, No Vertebral Tenderness Extremity: Normal Capillary Refill, Normal Inspection, Normal Range of Motion, Non Tender, No Calf Tenderness, No Pedal Edema Neurologic/Psychiatric: Alert, Oriented x3, No Motor/Sensory Deficits, Normal Mood/Affect Skin: Normal Color, Warm/Dry Lymphatic: No Adenopathy Assessment/Plan Assessment and Plan Assessment: Severe symptomatic anemia Presumed GI blood loss due to Plavix aspirin and Eliquis CHF COPD Oxygen dependency Hypertension Chronic kidney disease Atrial fibrillation CAD previous bypass Hypothyroidism Plan: Surgery consult Cardiology consult Transfuse ICU Problems: (1) Severe anemia Status: Acute (2) Dyspnea on minimal exertion Status: Acute (3) Chest pain (4) CAD (coronary artery disease) (5) Atrial fibrillation Admission Diagnosis Admission Status: Inpatient Order (span 2 midnights) Reason for Inpatient Admission: GIB Supervisory-Addendum Brief Verification & Attestation Participated in pt care: history, MDM, physical Personally performed: exam, history, MDM, supervision of care Care discussed with: Medical Student Procedures: n/a Results interpretation: Verified all documentation Verification and Attestation of Medical Student E/M Service A medical student performed and documented this service in my presence. I reviewed and verified all information documented by the medical student and made modifications to such information, when appropriate. I personally performed the physical exam and medical decision making. Melonie Sexton Jun 22, 2022,05:47 CLARICE KAPLAN Jun 21, 2022 14:31 MELONEI SEXTON DO Jun 22, 2022 05:47
[2022-06-21] MEDS: RT--FLUTICASONE/SALMETEROL 232-14 (AIRDUO RespiCLICK) IH SCH (19:00)
[2022-06-21] MEDS: DULoxetine 30 MG (CYMBALTA) CAP PO SCH (20:57)
[2022-06-21] MEDS: MONTELUKAST 10 MG (SINGULAIR) TAB PO SCH (20:57)
[2022-06-21] MEDS: ROSUVASTATIN 20 MG (CRESTOR) TABLET PO SCH (20:57)
[2022-06-21] MEDS: NEBIVOLOL 2.5 MG PO SCH (20:58)
[2022-06-21] MEDS ORDERED: PATIENT MAY USE OWN MED,SINGLE MED PO SCH (21:00)
[2022-06-21] MEDS ORDERED: NEBIVOLOL HCL 2.5 MG PO SCH (21:00)
[2022-06-21] MEDS ORDERED: NON-FORMULARY MEDICATION 1 EA EA (Budesonide/Formoterol Fumarate (Symbicort 160-4.5 Mcg In IH SCH (21:00)
[2022-06-22] MEDS: NS IV 1000 ML 1,000 ML IV SCH (02:06)
[2022-06-22 05:04] LABS: BASOPHILS % (AUTO) 0 % (0-10); EOSINOPHILS # (AUTO) 0.2 10^3/uL (0.0-0.3); EOSINOPHILS % (AUTO) 3 % (0-10); HEMATOCRIT 26 % (35-52); HEMOGLOBIN 8.3 g/dL (11.5-16.0); LYMPHOCYTES # (AUTO) 0.8 10^3/uL (1.0-4.0); LYMPHOCYTES % (AUTO) 14 % (12-44); MEAN CORPUSCULAR HEMOGLOBIN 31 pg (25-34); MEAN CORPUSCULAR HGB CONC 32 g/dL (32-36); MEAN CORPUSCULAR VOLUME 95 fL (80-99); MEAN PLATELET VOLUME 9.6 fL (9.0-12.2); MONOCYTES # (AUTO) 0.6 10^3/uL (0.0-1.0); MONOCYTES % (AUTO) 11 % (0-12); NEUTROPHILS # (AUTO) 4.2 10^3/uL (1.8-7.8); NEUTROPHILS % (AUTO) 71 % (42-75); PLATELET COUNT 208 10^3/uL (130-400); WHITE BLOOD COUNT 5.9 10^3/uL (4.3-11.0)
[2022-06-22 05:16] LABS: ALBUMIN 3.3 GM/DL (3.2-4.5); POTASSIUM 3.8 MMOL/L (3.6-5.0)
[2022-06-22 05:18] LABS: CALCIUM 8.9 MG/DL (8.5-10.1)
[2022-06-22 05:19] LABS: TOTAL PROTEIN 5.7 GM/DL (6.4-8.2)
[2022-06-22 05:21] LABS: BILIRUBIN,TOTAL 0.7 MG/DL (0.1-1.0)
[2022-06-22 05:22] LABS: PHOSPHORUS 3.4 MG/DL (2.3-4.7)
[2022-06-22 05:23] LABS: CREATININE SERUM 1.21 MG/DL (0.60-1.30)
[2022-06-22] MEDS: MAGNESIUM 1 GM/100 ML IVPB 100 ML IV SCH (06:14)
[2022-06-22] MEDS: POTASSIUM CL 10MEQ/50ML IVPB 50 ML IV SCH (06:14)
[2022-06-22] MEDS: KCL 10 MEQ TAB (MICRO K) PO SCH (06:15)
[2022-06-22] MEDS: LEVOTHYROXINE 112 MCG (LEVOTHROID) TAB PO SCH (06:15)
[2022-06-22] MEDS: RT--FLUTICASONE/SALMETEROL 232-14 (AIRDUO RespiCLICK) IH SCH ×2 (07:12→19:26)
--- NOTE | 2022-06-22 08:22 | Diagnostic Imaging Report ---
EXAMINATION: Chest 1 view HISTORY: Anemia COMPARISON: 06/21/2022 FINDINGS: Lung volumes are small. Heart is upper limits normal in size. Median sternotomy wires are aligned. There are coronary artery bypass graft markers. Loop recorder is present. No edema or pneumonia. No pleural effusion or pneumothorax. IMPRESSION: 1. Small volumes, otherwise clear lungs. Dictated by: Dictated on workstation # [id number]
--- NOTE | 2022-06-22 08:58 | Progress Note - Cardiology ---
Cardiology SOAP Progress Note Subjective: Sitting up in bed States she is feeling much better, but continues to have some gen weakness No c/o CP or SOB C/O WELCH Objective: I&O/Vital Signs 06/22/22 06/22/22 06/22/22 06/22/22 03:00 04:00 04:00 05:00 Pulse 73 71 69 Resp 18 12 21 B/P (MAP) 128/57 132/64 135/61 Pulse Ox 97 99 100 O2 Delivery Nasal Cannula Nasal Cannula Nasal Cannula Nasal Cannula O2 Flow Rate 2.00 2.00 2.00 2.00 06/22/22 06/22/22 06/22/22 06/22/22 06:00 07:00 07:00 07:12 Pulse 77 70 68 Resp 20 16 B/P (MAP) 134/68 123/49 Pulse Ox 97 98 99 O2 Delivery Nasal Cannula Nasal Cannula Nasal Cannula O2 Flow Rate 2.00 2.00 2.00 06/22/22 06/22/22 06/22/22 06/22/22 08:00 08:00 08:00 09:00 Temp 36.5 Pulse 74 70 Resp 13 22 B/P (MAP) 89/57 108/63 Pulse Ox 99 99 100 O2 Delivery Nasal Cannula Nasal Cannula Nasal Cannula O2 Flow Rate 2.00 2.00 2.00 06/22/22 06/22/22 06/22/22 06/22/22 10:00 11:00 12:00 12:00 Pulse 67 62 66 Resp 16 11 25 B/P (MAP) 124/62 102/52 101/63 Pulse Ox 100 99 98 96 O2 Delivery Nasal Cannula Nasal Cannula Nasal Cannula Nasal Cannula O2 Flow Rate 2.00 2.00 2.00 2.00 06/22/22 06/22/22 06/22/22 12:57 13:00 14:00 Pulse 66 67 75 Resp 9 31 B/P (MAP) 110/57 120/62 Pulse Ox 100 98 O2 Delivery Nasal Cannula Nasal Cannula O2 Flow Rate 2.00 2.00 06/21/22 23:59 Intake Total 1460 ml Output Total 1975 ml Balance -515 ml Weight (Pounds): 160 Weight (Ounces): 4.0 Weight (Calculated Kilograms): 72.483131 Constitutional: AAO x 3, well-developed, well-nourished Respiratory: No accessory muscle use, No respiratory distress; chest expansion is symmetric, chest is bilaterally symmetric, other (diminished bases bilate) Cardiovascular: regular rate-rhythm; No JVD; S1 and S2 Gastrointestional: No tender; soft, round, audible bowel sounds Extremities: no lower extremity edema bilateral Neurologic/Psychiatric: grossly intact (moves all extremities) Skin: No rash on exposed areas, No ulcerations on exposed areas Results/Procedures: Labs Laboratory Tests 06/22/22 04:50: White Blood Count 5.9, Red Blood Count 2.71L, Hemoglobin 8.3L, Hematocrit 26L, Mean Corpuscular Volume 95, Mean Corpuscular Hemoglobin 31, Mean Corpuscular Hemoglobin Concent 32, Red Cell Distribution Width 20.2H, Platelet Count 208, Mean Platelet Volume 9.6, Immature Granulocyte % (Auto) 1, Neutrophils (%) (Auto) 71, Lymphocytes (%) (Auto) 14, Monocytes (%) (Auto) 11, Eosinophils (%) (Auto) 3, Basophils (%) (Auto) 0, Neutrophils # (Auto) 4.2, Lymphocytes # (Auto) 0.8L, Monocytes # (Auto) 0.6, Eosinophils # (Auto) 0.2, Basophils # (Auto) 0.0, Immature Granulocyte # (Auto) 0.1, Sodium Level 139, Potassium Level 3.8, Chloride Level 104, Carbon Dioxide Level 27, Anion Gap 8, Blood Urea Nitrogen 23H, Creatinine 1.21, Estimat Glomerular Filtration Rate 47, BUN/Creatinine Ratio 19, Glucose Level 99, Calcium Level 8.9, Corrected Calcium 9.5, Phosphorus Level 3.4, Magnesium Level 2.0, Total Bilirubin 0.7, Aspartate Amino Transf (AST/SGOT) 18, Alanine Aminotransferase (ALT/SGPT) 10, Alkaline Phosphatase 81, Total Protein 5.7L, Albumin 3.3 Microbiology 06/20/22 MRSA Screen - Final, Complete MRSA not isolated A/P: Assessment: Anemia - H/H improved following transfusions - management per medical/surgical services Chest pain - resolved after blood transfusion. Paroxysmal atrial fibrillation/flutter, - Patient was treated with amiodarone in the past and it was stopped due to the underlying lung disease and shortness of breath, patient is oxygen dependent - She was intolerant to higher dose of beta-blockers due to bradycardia and syncope - Currently tolerating Bystolic - Patient has failed attempt for cardioversion on October 06, 2021, referred to Dr. Miller at , underwent ablation in October 2021. Has occasional breakthrough episodes of afib - maintained on Multaq - OAC is currently being held d/t recent suspected GIB NIKKI was done on October 06, 2021 showing dilated left atrium and left atrial appendage with no clot or thrombus, normal LV size, EF 60%, mild MR, aortic valve sclerosis with no stenosis. Failed attempt for cardioversion Coronary artery disease, history of CABG 3 done in 2006. - Cardiac catheterization was done in February 2014 showing patent LUNA to the LAD, 60 percent stenosis at the distal portion of the LUNA. The proximal LAD has 90 percent stenosis with good flow supply to the LAD system. The vein graft to the obtuse marginal branch is patent with excellent flow distally and the vein graft to the right coronary artery is patent with excellent flow distally. Normal left ventricular size and systolic function. - Cardiac catheterization done January 02, 2021 showing Patent LUNA to LAd, VG to the RCA. VG to the obtuse marginal branch has mod stenosis at an area followed by aneurysmal dilatation. Occluded prox circumflex artery corrected by the vein graft. Occluded prox RCA corrected by the VG. Right PDA was small vessel disease distally. Severe mid LAd stenosis corrected with the LUNA with dual supply to the LAD territory. - Cardiac catheterization done on June 06, 2022 with stenting of the vein graft to the circumflex artery using skypoint stent 3.5 x 23 mm, patent LUNA to LAD and vein graft to the right coronary artery with severe [place] coronary artery disease, small vessel disease. - Plavix and ASA are being held - advise at least Plavix be resumed d/t recent coronary stenting History of frequent premature ventricular contractions. Patient has episodes of frequent paroxysmal atrial tachycardia with wide-complex tachycardia, sees Dr. Miller at [facility]. She is status post Linq implantation that has been followed by Dr. Miller, it was extracted by Dr. Bedolla. Has been doing well. Continue to monitor Hypertension - borderline hypotensive Hyperlipidemia History of carotid stenosis - Left carotid endarterectomy. Last ultrasound report showed moderate disease in the right carotid artery, more significant disease on the left side. Followed and managed by heart and vascular care History of dizziness and lightheadedness. Reporting improvement. Continue to monitor. COPD - managment per Dr. Menjivar Pulmonary hypertension - Dr. Menjivar recommending RHC History of renal failure Hypothyroidism followed and managed by primary care physician. Chronic renal insufficiency - patient is following with Dr. Erica Meza Plan: Anemia of undetermined etiology - H/H improved following transfusions - management per medical services - advise source of bleeding be determined so that OAC can be resumed d/t risk of stroke d/t PAF CAD with recent stenting by Dr. Russell - advise Plavix be resumed d/t risk of in-stent thrombosis Monitor lab closely We have reviewed Dr. Russell's records Clinical Quality Measures AMI/AHF: ASA po Prior to arrival: Yes (81MG THIS AM) JASON GAGE Jun 22, 2022 08:58
[2022-06-22] MEDS: ISOSORBIDE MONONITRATE 30 MG (IMDUR) TAB PO SCH (08:59)
[2022-06-22] MEDS: MAGNESIUM OXIDE (MAG-OX)400 MG TAB PO SCH (08:59)
[2022-06-22] MEDS: DOCUSATE SODIUM 100 MG (COLACE) CAP PO SCH ×2 (08:59→20:45)
[2022-06-22] MEDS: ALLOPURINOL 300 MG (ZYLOPRIM) TAB PO SCH (08:59)
[2022-06-22] MEDS: VITAMIN D3 125 MCG (5,000 UNITS) CAPSULE PO SCH (08:59)
[2022-06-22] MEDS: SENNOSIDES 8.6 MG (SENOKOT) TAB PO SCH ×2 (08:59→20:45)
[2022-06-22] MEDS ORDERED: NON-FORMULARY MEDICATION 1 EA EA (Potassium Chloride 10 MEQ) PO SCH (09:00)
[2022-06-22] MEDS ORDERED: NON-FORMULARY MEDICATION 1 EA EA (Magnesium Oxide (Magnesium) 400 MG) PO SCH (09:00)
[2022-06-22] MEDS ORDERED: NON-FORMULARY MEDICATION 1 EA EA (Cholecalciferol (Vitamin D3) (Vitamin D3) 125 MCG) PO SCH (09:00)
[2022-06-22] MEDS: NEBIVOLOL 2.5 MG PO SCH ×2 (09:00→20:45)
[2022-06-22] MEDS: PANTOPRAZOLE 40 MG (PROTONIX) VIAL IV SCH (09:01)
[2022-06-22] MEDS: CLOPIDOGREL 75 MG (PLAVIX) TABLET PO SCH (09:16)
--- NOTE | 2022-06-22 09:30 | Progress Note - Surgery ---
DELMI HUTCHINSON 06/22/22 0929: Subjective Date Seen by a Provider: Jun 22, 2022 Time Seen by a Provider: 09:23 Subjective/Events-last exam Pt resting comfortably in bed. States she is feeling better, although she still has some fatigue. Notes her SOB is better, however she has not been ambulatory since admission. States yesterday she had x 2 bad headaches that were controlled with pain meds. She denies chest pain, dizziness, weakness, chills, fever, N/V/D, abdominal pain, or any other sx. She has not had a bowel movement yet. She is drinking and eating normally. Morgan catheter in place. Review of Systems General: No Chills, No Night Sweats HEENT: Head Aches; No Visual Changes Pulmonary: No Dyspnea, No Cough Cardiovascular: No: Chest Pain Gastrointestinal: No: Nausea, Vomiting, Abdominal Pain, Diarrhea, Melena Genitourinary: No Retention Neurological: No: Weakness, Confusion Objective Exam Vital Signs Date Time Temp Pulse Resp B/P (MAP) Pulse Ox O2 Delivery O2 Flow Rate FiO2 06/22/22 09:00 70 22 108/63 100 Nasal Cannula 2.00 06/22/22 08:00 74 13 89/57 99 Nasal Cannula 2.00 06/22/22 07:12 99 Nasal Cannula 2.00 06/22/22 07:00 68 06/22/22 07:00 70 16 123/49 98 Nasal Cannula 2.00 06/22/22 06:00 77 20 134/68 97 Nasal Cannula 2.00 06/22/22 05:00 69 21 135/61 100 Nasal Cannula 2.00 06/22/22 04:00 Nasal Cannula 2.00 06/22/22 04:00 71 12 132/64 99 Nasal Cannula 2.00 06/22/22 03:00 73 18 128/57 97 Nasal Cannula 2.00 06/22/22 02:00 71 15 93/63 100 Nasal Cannula 2.00 06/22/22 01:00 73 06/22/22 01:00 73 16 158/73 100 Nasal Cannula 2.00 06/22/22 00:00 72 17 143/65 99 Nasal Cannula 2.00 06/21/22 23:59 Nasal Cannula 2.00 06/21/22 23:00 70 16 130/73 100 Nasal Cannula 2.00 06/21/22 22:00 72 16 119/80 90 Nasal Cannula 2.00 06/21/22 21:00 74 17 126/54 100 Nasal Cannula 2.00 06/21/22 20:23 36.8 77 26 115/60 100 Nasal Cannula 2.00 06/21/22 20:05 36.7 06/21/22 20:00 Nasal Cannula 2.00 06/21/22 19:01 100 Nasal Cannula 2.00 06/21/22 19:00 68 22 122/67 100 Nasal Cannula 2.00 06/21/22 19:00 71 06/21/22 18:00 73 49 112/57 99 Nasal Cannula 2.00 06/21/22 17:00 78 19 116/51 95 Nasal Cannula 2.00 06/21/22 16:39 35.9 73 16 124/53 97 Nasal Cannula 2.00 06/21/22 16:00 70 15 124/53 100 Nasal Cannula 2.00 06/21/22 16:00 Nasal Cannula 2.00 06/21/22 15:00 70 22 109/61 100 Nasal Cannula 2.00 06/21/22 14:00 58 18 113/67 100 Nasal Cannula 2.00 06/21/22 13:00 68 06/21/22 13:00 66 12 116/68 100 Nasal Cannula 2.00 06/21/22 12:00 Nasal Cannula 2.00 06/21/22 12:00 56 14 116/55 100 Nasal Cannula 2.00 06/21/22 12:00 36.2 06/21/22 11:12 36.2 62 18 119/54 100 Nasal Cannula 2.00 06/21/22 11:00 68 20 119/54 100 Nasal Cannula 2.00 06/21/22 10:50 100 Nasal Cannula 2.00 06/21/22 10:01 70 17 100 06/21/22 10:00 154 39 130/79 100 Nasal Cannula 2.00 I & O 06/22/22 07:00 Intake Total 2960 ml Output Total 2635 ml Balance 325 ml Capillary Refill : Less Than 3 Seconds General Appearance: No Apparent Distress, Chronically ill HEENT: PERRL/EOMI, Pharynx Normal Neck: Non Tender, Supple Respiratory: Lungs Clear, Normal Breath Sounds, No Accessory Muscle Use, No Respiratory Distress Cardiovascular: Regular Rate, Rhythm, No Murmur Peripheral Pulses: 2+ Radial Pulses (R), 2+ Radial Pulses (L) Gastrointestinal: normal bowel sounds, non tender, soft, no organomegaly, hernia (found in 2013) Extremity: Non Tender, No Calf Tenderness, No Pedal Edema Neurologic/Psychiatric: Alert, Oriented x3, Normal Mood/Affect Skin: Normal Color, Warm/Dry Lymphatic: No Adenopathy (of supraclavicular or axillary ) Results Lab Laboratory Tests 06/21/22 14:12: Hemoglobin 8.4L 06/22/22 04:50: Hemoglobin 8.3L, White Blood Count 5.9, Red Blood Count 2.71L, Hematocrit 26L, Mean Corpuscular Volume 95, Mean Corpuscular Hemoglobin 31, Mean Corpuscular Hemoglobin Concent 32, Red Cell Distribution Width 20.2H, Platelet Count 208, Mean Platelet Volume 9.6, Immature Granulocyte % (Auto) 1, Neutrophils (%) (Auto) 71, Lymphocytes (%) (Auto) 14, Monocytes (%) (Auto) 11, Eosinophils (%) (Auto) 3, Basophils (%) (Auto) 0, Neutrophils # (Auto) 4.2, Lymphocytes # (Auto) 0.8L, Monocytes # (Auto) 0.6, Eosinophils # (Auto) 0.2, Basophils # (Auto) 0.0, Immature Granulocyte # (Auto) 0.1, Sodium Level 139, Potassium Level 3.8, Chloride Level 104, Carbon Dioxide Level 27, Anion Gap 8, Blood Urea Nitrogen 23H, Creatinine 1.21, Estimat Glomerular Filtration Rate 47, BUN/Creatinine Ratio 19, Glucose Level 99, Calcium Level 8.9, Corrected Calcium 9.5, Phosphorus Level 3.4, Magnesium Level 2.0, Total Bilirubin 0.7, Aspartate Amino Transf (AST/SGOT) 18, Alanine Aminotransferase (ALT/SGPT) 10, Alkaline Phosphatase 81, Total Protein 5.7L, Albumin 3.3 Assessment/Plan Assessment/Plan Assessment/Plan Iron deficiency Anemia Afib CAD Pt received 3 units PRBCs since admission, her Hb this morning is 8.3. Had a colonoscopy and EGD x 3 months ago and has no signs of obvious bleeding (no abdominal pain, no blood in stool or vomit). She does not need any surgery at the moment. Continue to monitor labs, abdominal checks and transfuse as needed. Clinical Quality Measures AMI/AHF: ASA po Prior to arrival: Yes (81MG THIS AM) DVT/VTE Risk/Contraindication: Contraindications-Pharm: Other *list below* Other: YULISA Macias DO 06/22/22 1638: Subjective Subjective/Events-last exam Patient states doing well today. No bloody bm or abdominal pain. Has headaches. Breathing improving she states. Hgb stable Denies n/v fever sweats chills shortness of breath or chest pain at this time. Objective Exam General Appearance: No Apparent Distress, Chronically ill HEENT: PERRL/EOMI, Normal ENT Inspection Neck: Full Range of Motion, Non Tender, Supple Respiratory: Chest Non Tender, No Accessory Muscle Use, No Respiratory Distress Cardiovascular: Regular Rate, Rhythm, No JVD Gastrointestinal: non tender, soft Extremity: Non Tender Neurologic/Psychiatric: Alert, Oriented x3, Normal Mood/Affect Skin: Normal Color, Warm/Dry Lymphatic: No Adenopathy (of supraclavicular or axillary ) Assessment/Plan Assessment/Plan Assessment/Plan Iron deficiency Anemia Afib CAD Pt received 3 units PRBCs since admission, her Hb this morning is 8.3. Had a colonoscopy and EGD x 3 months ago and has no signs of obvious bleeding (no abdominal pain, no blood in stool or vomit). She does not need any surgery at the moment. Continue to monitor labs, abdominal checks and transfuse as needed. Cardiology is wanting to start back on Plavix which we can start and stay on unless has drop in hgb. Supervisory-Addendum Brief Verification & Attestation Participated in pt care: history, MDM, physical Personally performed: exam, history, MDM, supervision of care Care discussed with: Medical Student Procedures: n/a Results interpretation: Verified all documentation Verification and Attestation of Medical Student E/M Service A medical student performed and documented this service in my presence. I reviewed and verified all information documented by the medical student and made modifications to such information, when appropriate. I personally performed the physical exam and medical decision making. Yulisa Rea, Jun 22, 2022,16:38 DELMI HUTCHINSON Jun 22, 2022 09:29 YULISA REA DO Jun 22, 2022 16:38
--- NOTE | 2022-06-22 09:54 | Tele-ICU Progress Note ---
Subjective Date Seen by a Provider: Jun 22, 2022 Time Seen by a Provider: 09:54 Subjective/Events-last exam (Tele-ICU Physician , Progress Note ) Available chart/ vitals / labs / Images reviewed Video assessment done using teleICU camera, rest of exam as per RN Discussed with RN Events overnight : Afebrile hemodynamically stable Respiratory - 2l I/O = Drips: Pressors- no Consultants: Hospital course: 76F with COPD on 2L home O2, afib, chronic anemia, hypertension, hypothyroid, CAD s/p PCI with stent x2 06/07/22 with progressive worsening of CP, SOB, fatigue and weakness since that time. In ED found to have Hg 5.2, down from 9 at the time of the cath, CT abd pelvis - no abnormalities 06/21 - s/p 3 units PRBC A/P Anemia, chronic, (Hg 5.2 on admission -Work up 3 months ago in [place], including colonoscopy, was negative., secondary to chronic blood loss, possibly accelerated after addition of xarelto vs destructive process vs bone marrow suppression vs multifactorial. - s/p transfusion 3 units 06/20 - xarelto on hold ( no reversal agent given ) - Plavix resumed - -as per cards im and sx TAM - mild - improved - monitor, on PO = heplock IVs CAD - s/p stents x2 06/07/22 COPD -on 2L home O2 - cxr with conjestion , but at baseline O2 needs - heplock IV- s/p lasix iv 06/21 - cont ICS / home meds Pulmonary HTN -resume diuresis -as per cards , lasix x 1 now with transfusions A fib - rate controlled , internittent a fib/sinus - was on xarelto [employer] - as per cards Coagulopathy: on xarelto, - INR of 2.7 on admisssion - monitor Lines : , (Central Line Necessity Reviewed) Morgan: OG: Nutrition: Analgesia: Anxiety/ delirium VTE Prophylaxis:scd, resume AC when stable Stress Ulcer Prophylaxis: na Plans in collaboration with bedside consultants and IM MDs. Discussed with RN to reach out if any questions or concerns A total of 25 minutes of critical care time was devoted to this patient today, required to treat and/or prevent further deterioration of critical care condition ( as above ) . Sepsis Event Evaluation Height, Weight, BMI Height: 5'4.00" Weight: 160lbs. 4.0oz. 72.632889ff; 35.42 BMI Method:Estimated Exam Exam Patient acknowledged, consented, and participated in this virtual visit which was conducted using real time audio/video Vital Signs Date Time Temp Pulse Resp B/P (MAP) Pulse Ox O2 Delivery O2 Flow Rate FiO2 06/22/22 09:00 70 22 108/63 100 Nasal Cannula 2.00 06/22/22 08:00 74 13 89/57 99 Nasal Cannula 2.00 06/22/22 07:12 99 Nasal Cannula 2.00 06/22/22 07:00 68 06/22/22 07:00 70 16 123/49 98 Nasal Cannula 2.00 06/22/22 06:00 77 20 134/68 97 Nasal Cannula 2.00 06/22/22 05:00 69 21 135/61 100 Nasal Cannula 2.00 06/22/22 04:00 Nasal Cannula 2.00 06/22/22 04:00 71 12 132/64 99 Nasal Cannula 2.00 06/22/22 03:00 73 18 128/57 97 Nasal Cannula 2.00 06/22/22 02:00 71 15 93/63 100 Nasal Cannula 2.00 06/22/22 01:00 73 06/22/22 01:00 73 16 158/73 100 Nasal Cannula 2.00 06/22/22 00:00 72 17 143/65 99 Nasal Cannula 2.00 06/21/22 23:59 Nasal Cannula 2.00 06/21/22 23:00 70 16 130/73 100 Nasal Cannula 2.00 06/21/22 22:00 72 16 119/80 90 Nasal Cannula 2.00 06/21/22 21:00 74 17 126/54 100 Nasal Cannula 2.00 06/21/22 20:23 36.8 77 26 115/60 100 Nasal Cannula 2.00 06/21/22 20:05 36.7 06/21/22 20:00 Nasal Cannula 2.00 06/21/22 19:01 100 Nasal Cannula 2.00 06/21/22 19:00 68 22 122/67 100 Nasal Cannula 2.00 06/21/22 19:00 71 06/21/22 18:00 73 49 112/57 99 Nasal Cannula 2.00 06/21/22 17:00 78 19 116/51 95 Nasal Cannula 2.00 06/21/22 16:39 35.9 73 16 124/53 97 Nasal Cannula 2.00 06/21/22 16:00 70 15 124/53 100 Nasal Cannula 2.00 06/21/22 16:00 Nasal Cannula 2.00 06/21/22 15:00 70 22 109/61 100 Nasal Cannula 2.00 06/21/22 14:00 58 18 113/67 100 Nasal Cannula 2.00 06/21/22 13:00 68 06/21/22 13:00 66 12 116/68 100 Nasal Cannula 2.00 06/21/22 12:00 Nasal Cannula 2.00 06/21/22 12:00 56 14 116/55 100 Nasal Cannula 2.00 06/21/22 12:00 36.2 06/21/22 11:12 36.2 62 18 119/54 100 Nasal Cannula 2.00 06/21/22 11:00 68 20 119/54 100 Nasal Cannula 2.00 06/21/22 10:50 100 Nasal Cannula 2.00 06/21/22 10:01 70 17 100 06/21/22 10:00 154 39 130/79 100 Nasal Cannula 2.00 I & O 06/22/22 07:00 Intake Total 2960 ml Output Total 2635 ml Balance 325 ml Height & Weight Height: 5'4.00" Weight: 160lbs. 4.0oz. 72.502865vw; 35.42 BMI Method:Estimated General Appearance: No Apparent Distress, Chronically ill HEENT: PERRL/EOMI, Pharynx Normal Neck: Non Tender, Supple Respiratory: Lungs Clear, Normal Breath Sounds, No Accessory Muscle Use, No Respiratory Distress Cardiovascular: Regular Rate, Rhythm, No Murmur Capillary Refill: Less Than 3 Seconds Peripheral Pulses: 2+ Radial Pulses (R), 2+ Radial Pulses (L) Gastrointestinal: normal bowel sounds, non tender, soft, no organomegaly, hernia (found in 2013) Extremity: Non Tender, No Calf Tenderness, No Pedal Edema Neurologic/Psychiatric: Alert, Oriented x3, Normal Mood/Affect Skin: Normal Color, Warm/Dry Lymphatic: No Adenopathy (of supraclavicular or axillary ) Results Lab Laboratory Tests 06/20/22 15:57 06/21/22 00:20 06/21/22 04:30 06/21/22 04:50 06/21/22 14:12 06/22/22 04:50 Assessment/Plan Assessment/Plan 1 EMMA SCHNEIDER MD Jun 22, 2022 09:54
--- NOTE | 2022-06-22 12:45 | Progress Note ---
CLARICE KAPLAN 06/22/22 1245: Subjective Date Seen by a Provider: Jun 22, 2022 Time Seen by a Provider: 09:46 Subjective/Events-last exam Gem Noland is a 76y/o F w/ a PMH of CAD, CKD, and anemia who presented to the ED on 06/20 due to SOB and fatigue. Had been on Xarelto due to Hx of Afib. Hgb w as found to be 5.4 in the ED and she received 2 units of blood. Admitted to ICU. Xarelto was held. Cardiology, general surgery, and eICU consulted. On 06/21 Hgb was 7 and another unit of pRBCs given. Chronic afib rate controlled. CXR showed some pulmonary venous congestion, received lasix. Today (06/22) Hgb has been stable at 8.3. Plavix restarted by cardiology due to history of recent heart stent. Lasix to be held today due to borderline low BP. EGD and colonoscopy done at [facility] 3 months ago, no abnormalities were found and at the current moment surgery does not plan on doing scopes. She will be moving down to 4th floor w/ a possibility of admission to inpt rehab in the future. Today pt reports that she is feeling better. Her fatigue and SOB has improved but she says that she has not been active. Has had a couple HAs which are uncommon for her. Last one was this morning. Says that she got some oxycodone and the WELCH resolved in a hour. Review of Systems General: No Chills, No Night Sweats HEENT: No Head Aches, No Visual Changes Pulmonary: No Dyspnea, No Cough Cardiovascular: No: Chest Pain, Palpitations Gastrointestinal: No: Nausea, Abdominal Pain Genitourinary: No Dysuria, No Hematuria Musculoskeletal: No: neck pain, back pain Neurological: Numbness (chronic); No: Weakness Objective Exam Last Set of Vital Signs Vital Signs Date Time Temp Pulse Resp B/P (MAP) Pulse Ox O2 Delivery O2 Flow Rate FiO2 06/22/22 12:00 96 Nasal Cannula 2.00 06/22/22 12:00 66 25 101/63 06/22/22 08:00 36.5 06/20/22 19:59 28 Capillary Refill : Less Than 3 Seconds I&O Intake and Output 06/22/22 00:00 Intake Total 2790 ml Output Total 3045 ml Balance -255 ml Intake Oral 2740 ml Other 50 ml Output Urine Total 3045 ml General: Alert, Oriented X3, Cooperative, No Acute Distress Lungs: Clear to Auscultation, Normal Air Movement Heart: Other (irregular rate, systolic murmur) Abdomen: No Tenderness Extremities: No Cyanosis, No Edema Neuro: Normal Speech Psych/Mental Status: Mental Status NL, Mood NL Results Lab Laboratory Tests 06/21/22 14:12: Hemoglobin 8.4L 06/22/22 04:50: Hemoglobin 8.3L, White Blood Count 5.9, Red Blood Count 2.71L, Hematocrit 26L, Mean Corpuscular Volume 95, Mean Corpuscular Hemoglobin 31, Mean Corpuscular Hemoglobin Concent 32, Red Cell Distribution Width 20.2H, Platelet Count 208, Mean Platelet Volume 9.6, Immature Granulocyte % (Auto) 1, Neutrophils (%) (Auto) 71, Lymphocytes (%) (Auto) 14, Monocytes (%) (Auto) 11, Eosinophils (%) (Auto) 3, Basophils (%) (Auto) 0, Neutrophils # (Auto) 4.2, Lymphocytes # (Auto) 0.8L, Monocytes # (Auto) 0.6, Eosinophils # (Auto) 0.2, Basophils # (Auto) 0.0, Immature Granulocyte # (Auto) 0.1, Sodium Level 139, Potassium Level 3.8, Ch loride Level 104, Carbon Dioxide Level 27, Anion Gap 8, Blood Urea Nitrogen 23H, Creatinine 1.21, Estimat Glomerular Filtration Rate 47, BUN/Creatinine Ratio 19, Glucose Level 99, Calcium Level 8.9, Corrected Calcium 9.5, Phosphorus Level 3.4, Magnesium Level 2.0, Total Bilirubin 0.7, Aspartate Amino Transf (AST/SGOT) 18, Alanine Aminotransferase (ALT/SGPT) 10, Alkaline Phosphatase 81, Total Protein 5.7L, Albumin 3.3 Microbiology 06/20/22 MRSA Screen - Final, Complete MRSA not isolated Assessment/Plan Assessment/Plan Assess & Plan/Chief Complaint Anemia -Hgb of 5.4 on admission, currently 8.3 -2U of pRBCs 06/20 and 1U 06/21 -gen surg consulted -eICU consulted -iron panel showed low iron and high TIBC -protonix for GI prophylaxis -continue to monitor Hgb closely, will need another transfusion if Hgb goes below 7 Atrial fibrillation HTN -rate controlled -underwent ablation in October 2021 at [facility] -was on xarelto, has been stopped -plavix restarted today due to hx of recent stent -cardiology consulted and managing CKD -followed by nephrology as an outpt -BUN and Cr close to pt's baseline -will continue to monitor RFTs CHF Pulmonary HTN -CXR showed some central pulmonary venous congestion. -given lasix yesterday, being held today Hypokalemia(improved) -K+ of 3.8 today -on 10mEq of K+ daily, will continue to monitor COPD -on baseline 2L of O2 Hypothyroidism -home levothyroxine HLD -Crestor 20mg Moving to 4th floor DVT prophylaxis: SCDs, anticoagulation contraindicated Code status: full code Diet: regular Clinical Quality Measures Admission Status Admission Dx Anemia -Hgb of 5.4 on admission, currently 8.4 -2U of pRBCs last night and 1U this AM -gen surg consulted -eICU consulted -iron panel pending -Protonix for GI prophylaxis -continue to monitor Hgb closely, will need another transfusion if Hgb goes below 7 Atrial fibrillation -rate controlled -underwent ablation in October 2021 at [facility] -was on Xarelto, has been stopped -cardiology consulted CKD -followed by nephrology as an outpt -BUN and Cr close to pt's baseline -will continue to monitor RFTs Pulmonary HTN -CXR showed some central pulmonary venous congestion. -starting lasix Hypokalemia -K+ of 3.4 today -on 10mEq of K+ daily, will continue to monitor Hypothyroidism -restart home levothyroxine HLD -Crestor 20mg In ICU DVT prophylaxis: SCDs, anticoagulation contraindicated Code status: full code Diet: regular AMI/AHF: ASA po Prior to arrival: Yes (81MG THIS AM) DVT/VTE Risk/Contraindication: Contraindications-Pharm: Other *list below* Other: MELONIE Palomino DO 06/23/22 0605: Subjective Subjective/Events-last exam Patient doing well No bloody stools Will go to inpatient rehab tomorrow Supervisory-Addendum Brief Verification & Attestation Participated in pt care: history, MDM, physical Personally performed: exam, history, MDM, supervision of care Care discussed with: Medical Student Procedures: n/a Results interpretation: Verified all documentation Verification and Attestation of Medical Student E/M Service A medical student performed and documented this service in my presence. I reviewed and verified all information documented by the medical student and made modifications to such information, when appropriate. I personally performed the physical exam and medical decision making. Melonie Sexton, Jun 23, 2022,06:04 CLARICE KAPLAN Jun 22, 2022 12:45 MELONIE SEXTON DO Jun 23, 2022 06:05
--- NOTE | 2022-06-22 12:49 | Progress Note - Cardiology ---
Cardiology SOAP Progress Note Subjective: No cp or palp or syncope Gen malaise and weakness present No n/v/d No focal weakness Denies swelling Objective: I&O/Vital Signs 06/22/22 06/22/22 06/22/22 06/22/22 01:00 01:00 02:00 03:00 Pulse 73 73 71 73 Resp 16 15 18 B/P (MAP) 158/73 93/63 128/57 Pulse Ox 100 100 97 O2 Delivery Nasal Cannula Nasal Cannula Nasal Cannula O2 Flow Rate 2.00 2.00 2.00 06/22/22 06/22/22 06/22/22 06/22/22 04:00 04:00 05:00 06:00 Pulse 71 69 77 Resp 12 21 20 B/P (MAP) 132/64 135/61 134/68 Pulse Ox 99 100 97 O2 Delivery Nasal Cannula Nasal Cannula Nasal Cannula Nasal Cannula O2 Flow Rate 2.00 2.00 2.00 2.00 06/22/22 06/22/22 06/22/22 06/22/22 07:00 07:00 07:12 08:00 Pulse 70 68 Resp 16 B/P (MAP) 123/49 Pulse Ox 98 99 99 O2 Delivery Nasal Cannula Nasal Cannula Nasal Cannula O2 Flow Rate 2.00 2.00 2.00 06/22/22 06/22/22 06/22/22 06/22/22 08:00 08:00 09:00 10:00 Temp 36.5 Pulse 74 70 67 Resp 13 22 16 B/P (MAP) 89/57 108/63 124/62 Pulse Ox 99 100 100 O2 Delivery Nasal Cannula Nasal Cannula Nasal Cannula O2 Flow Rate 2.00 2.00 2.00 06/22/22 06/22/22 06/22/22 11:00 12:00 12:00 Pulse 62 66 Resp 11 25 B/P (MAP) 102/52 101/63 Pulse Ox 99 98 96 O2 Delivery Nasal Cannula Nasal Cannula Nasal Cannula O2 Flow Rate 2.00 2.00 2.00 06/22/22 00:00 Intake Total 1460 ml Output Total 1975 ml Balance -515 ml Weight (Pounds): 160 Weight (Ounces): 4.0 Weight (Calculated Kilograms): 72.277537 Constitutional: AAO x 3, well-developed, well-nourished Respiratory: No accessory muscle use, No respiratory distress; chest expansion is symmetric, chest is bilaterally symmetric, other (diminished bases bilate) Cardiovascular: regular rate-rhythm; No JVD; S1 and S2 Gastrointestional: No tender; soft, round, audible bowel sounds Extremities: no lower extremity edema bilateral Neurologic/Psychiatric: grossly intact (moves all extremities) Skin: No rash on exposed areas, No ulcerations on exposed areas Results/Procedures: Labs Laboratory Tests 06/21/22 14:12: Hemoglobin 8.4L 06/22/22 04:50: Hemoglobin 8.3L, White Blood Count 5.9, Red Blood Count 2.71L, Hematocrit 26L, Mean Corpuscular Volume 95, Mean Corpuscular Hemoglobin 31, Mean Corpuscular Hemoglobin Concent 32, Red Cell Distribution Width 20.2H, Platelet Count 208, Mean Platelet Volume 9.6, Immature Granulocyte % (Auto) 1, Neutrophils (%) (Auto) 71, Lymphocytes (%) (Auto) 14, Monocytes (%) (Auto) 11, Eosinophils (%) (Auto) 3, Basophils (%) (Auto) 0, Neutrophils # (Auto) 4.2, Lymphocytes # (Auto) 0.8L, Monocytes # (Auto) 0.6, Eosinophils # (Auto) 0.2, Basophils # (Auto) 0.0, Immature Granulocyte # (Auto) 0.1, Sodium Level 139, Potassium Level 3.8, Chloride Level 104, Carbon Dioxide Level 27, Anion Gap 8, Blood Urea Nitrogen 23H, Creatinine 1.21, Estimat Glomerular Filtration Rate 47, BUN/Creatinine Ratio 19, Glucose Level 99, Calcium Level 8.9, Corrected Calcium 9.5, Phosphorus Level 3.4, Magnesium Level 2.0, Total Bilirubin 0.7, Aspartate Amino Transf (AST/SGOT) 18, Alanine Aminotransferase (ALT/SGPT) 10, Alkaline Phosphatase 81, Total Protein 5.7L, Albumin 3.3 Microbiology 06/20/22 MRSA Screen - Final, Complete MRSA not isolated Laboratory Tests 06/20/22 15:57 06/21/22 00:20 06/21/22 04:30 06/21/22 04:50 06/21/22 14:12 06/22/22 04:50 A/P: Assessment: Anemia - H/H improved following transfusions - management per medical/surgical services Chest pain - resolved after blood transfusion. Paroxysmal atrial fibrillation/flutter, - Patient was treated with amiodarone in the past and it was stopped due to the underlying lung disease and shortness of breath, patient is oxygen dependent - She was intolerant to higher dose of beta-blockers due to bradycardia and syncope - Currently tolerating Bystolic - Patient has failed attempt for cardioversion on October 06, 2021, referred to Dr. Miller at , underwent ablation in October 2021. Has occasional breakthrough episodes of afib - maintained on Multaq - OAC is currently being held d/t recent suspected GIB NIKKI was done on October 06, 2021 showing dilated left atrium and left atrial appendage with no clot or thrombus, normal LV size, EF 60%, mild MR, aortic valve sclerosis with no stenosis. Failed attempt for cardioversion Coronary artery disease, history of CABG 3 done in 2006. - Cardiac catheterization was done in February 2014 showing patent LUNA to the LAD, 60 percent stenosis at the distal portion of the LUNA. The proximal LAD has 90 percent stenosis with good flow supply to the LAD system. The vein graft to the obtuse marginal branch is patent with excellent flow distally and the vein graft to the right coronary artery is patent with excellent flow distally. Normal left ventricular size and systolic function. - Cardiac catheterization done January 02, 2021 showing Patent LUNA to LAd, VG to the RCA. VG to the obtuse marginal branch has mod stenosis at an area followed by aneurysmal dilatation. Occluded prox circumflex artery corrected by the vein graft. Occluded prox RCA corrected by the VG. Right PDA was small vessel disease distally. Severe mid LAd stenosis corrected with the LUNA with dual supply to the LAD territory. - Cardiac catheterization done on June 06, 2022 with stenting of the vein graft to the circumflex artery using skypoint stent 3.5 x 23 mm, patent LUNA to LAD and vein graft to the right coronary artery with severe koi coronary artery disease, small vessel disease. - Plavix and ASA are being held - advise at least Plavix be resumed d/t recent coronary stenting History of frequent premature ventricular contractions. Patient has episodes of frequent paroxysmal atrial tachycardia with wide-complex tachycardia, sees Dr. Miller at [facility]. She is status post Linq implantation that has been followed by Dr. Miller, it was extracted by Dr. Bedolla. Has been doing well. Continue to monitor Hypertension - borderline hypotensive Hyperlipidemia History of carotid stenosis - Left carotid endarterectomy. Last ultrasound report showed moderate disease in the right carotid artery, more significant disease on the left side. Followed and managed by heart and vascular care History of dizziness and lightheadedness. Reporting improvement. Continue to monitor. COPD - managment per Dr. Menjivar Pulmonary hypertension - Dr. Menjivar recommending [facility]HC History of renal failure Hypothyroidism followed and managed by primary care physician. Chronic renal insufficiency - patient is following with Dr. Ercia Meza Plan: Anemia of undetermined etiology - H/H improved following transfusions - management per medical services - advise source of bleeding be determined so that OAC can be resumed d/t risk of stroke d/t PAF CAD with recent stenting by Dr. Russell - advise Plavix be resumed d/t risk of in-stent thrombosis Monitor lab closely We have reviewed Dr. Russell's records Clinical Quality Measures AMI/AHF: ASA po Prior to arrival: Yes (81MG THIS AM) TRACY RAINES MD FACP FAC CCDS Jun 22, 2022 12:49
--- NOTE | 2022-06-22 14:48 | Physical Therapy Evaluation ---
PT Evaluation-General Medical Diagnosis Admission Date Jun 20, 2022 at 18:21 Medical Diagnosis: severe anemia Onset Date: Jun 20, 2022 Therapy Diagnosis Therapy Diagnosis: debility/weakness Height/Weight Height (Feet): 5 Height (Inches): 4.00 Weight (Pounds): 160 Weight (Ounces): 4.0 Precautions Precautions/Isolations: Fall Prevention, Standard Precautions Referral Physician: Franklyn Reason for Referral: Evaluation/Treatment Medical History Pertinent Medical History: Atrial Fib, Back Injury, CABG, COPD, Neuropathy Current History ER secondary to weakness, fatigue, SOA Reviewed History: Yes Social History Home: Single Level Current Living Status: Spouse Prior Prior Level of Function SCALE: Activities may be completed with or without assistive devices. 6-Jyviejlkhp-ofbdoyz completes the activity by him/herself with no assistance from a helper. 5-Set-up or Clean-up Assistance-helper sets up or cleans up; patient completes activity. [place] assists only prior to or following the activity. 4-Supervision or Touching Assistance-helper provides verbal cues and/or touching/steadying and/or contact guard assistance as patient completes activity. Assistance may be provided throughout the activity or intermittently. 3-Partial/Moderate Assistance-helper does LESS THAN HALF the effort. [place] lifts, holds or supports trunk or limbs, but provides less than half the effort. 2-Substantial/Maximal Assistance-helper does MORE THAN HALF the effort. [place] lifts or holds trunk or limbs and provides more than half the effort. 6-Qzawubpwk-cipjwm does ALL the effort. Patient does none of the effort to complete the activity. Or, the assistance of 2 or more helpers is required for the patient to complete the activity. If activity was not attempted, code reason: 7-Patient Refused. 9-Not Applicable-not attempted and the patient did not perform the activity before the current illness, exacerbation or injury. 10-Not Attempted due to Environmental Limitations-(lack of equipment, weather restraints, etc.). 88-Not Attempted due to Medical Conditions or Safety Concerns. Bed Mobility: 6 Transfers (B,C,W/C): 6 Gait: 6 Stairs: 6 Indoor Mobility (Ambulation): Independent Stairs: Independent Prior Devices Use: Walker (PRN) PT Evaluation-Current Subjective Patient is very agreeable to participate with PT. Objective Patient Orientation: Normal For Age Attachments: Oxygen ROM/Strength ROM Lower Extremities bilateral LE WFL Strength Lower Extremities 3+/5 grossly bilateral LE all planes Integumentary/Posture Bladder Incontinence: Morgna Cath Posture WFL Neuromuscular (Tone, Coordination, Reflexes) grossly intact Sensory Vision: Functional Hearing: Functional Transfers Lying to Sitting/Side of Bed(Q: 6 Sit to Stand (QC): 4 Chair/Lir-wi-Bldrb Xfer(QC): 4 Gait Mode of Locomotion: Walk Anticipated Mode of Locomotion: Walk Walk 10 feet (QC): 4 Walk 50 ft with 2 Turns(QC): 4 Walk 150 ft (QC): 4 Distance: 225' Gait Assistive Device: FWW Comments/Gait Description FWW for energy conservation Balance Sitting Static: Normal Sitting Dynamic: Normal Standing Static: Normal Standing Dynamic: Normal Assessment/Needs 76 y.o. female, will be seen short term by skilled PT to address functional mobility and strengthening to ensure safe return to home at maximum LOF. Rehab Potential: Fair PT Craft Artist Goals Alf Goals PT Alf Goals Time Frame: Jun 30, 2022 Roll Left & Right (QC): 6 Sit to Lying (QC): 6 Lying-Sitting on Side/Bed(QC): 6 Sit to Stand (QC): 6 Chair/Mit-ev-Ophib Xfer(QC): 6 Toilet Transfer (QC): 6 Walk 10 feet (QC): 6 Walk 50ft with 2 Turns (QC): 6 Walk 150 ft (QC): 6 PT Plan Problem List Problem List: Activity Tolerance, Functional Strength, Safety, Balance, Gait, Transfer Treatment/Plan Treatment Plan: Continue Plan of Care Treatment Plan: Bed Mobility, Education, Functional Activity Yaima, Functional Strength, Gait, Safety, Therapeutic Exercise, Transfers Treatment Duration: Jun 30, 2022 Frequency: 6 times per week Estimated Hrs Per Day: .25 hour per day Time/GCodes Time In: 1343 Time Out: 1402 Total Billed Treatment Time: 19 Total Billed Treatment 1 visit EVMod 19 min MOMO GREENWOOD PT Jun 22, 2022 14:48
--- NOTE | 2022-06-22 14:58 | Occupational Therapy Eval ---
OT Evaluation-General/PLF Medical Diagnosis Admission Date Jun 20, 2022 at 18:21 Medical Diagnosis: severe anemia Onset Date: Jun 20, 2022 Therapy Diagnosis Therapy Diagnosis: n/a Height/Weight Height (Feet): 5 Height (Inches): 4.00 Weight (Pounds): 160 Weight (Ounces): 4.0 Precautions Precautions/Isolations: Fall Prevention, Standard Precautions Referral Physician: Franklyn Referral Reason: Evaluation/Treatment Medical History Pertinent Medical History: Atrial Fib, Back Injury, CABG, COPD, Neuropathy Additional Medical History CAD, CKD, anemia, COPD, afib, neuropathy, renal failure, arthritis, anxiety/depression, r hip orthopedic Current History ED with SOB and fatigue, heat cath 06/07 with 2 stents Social History Home: Single Level Current Living Status: Spouse ADL-Prior Level of Function SCALE: Activities may be completed with or without assistive devices. 5-Gidtsbrrlc-krvzfun completes the activity by him/herself with no assistance from a helper. 5-Set-up or Clean-up Assistance-helper sets up or cleans up; patient completes activity. [place] assists only prior to or following the activity. 4-Supervision or Touching Assistance-helper provides verbal cues and/or t ouching/steadying and/or contact guard assistance as patient completes activity. Assistance may be provided throughout the activity or intermittently. 3-Partial/Moderate Assistance-helper does LESS THAN HALF the effort. [place] lifts, holds or supports trunk or limbs, but provides less than half the effort. 2-Substantial/Maximal Assistance-helper does MORE THAN HALF the effort. [place] lifts or holds trunk or limbs and provides more than half the effort. 5-Dwzbtuigq-rvnizd does ALL the effort. Patient does none of the effort to complete the activity. Or, the assistance of 2 or more helpers is required for the patient to complete the activity. If activity was not attempted, code reason: 7-Patient Refused. 9-Not Applicable-not attempted and the patient did not perform the activity before the current illness, exacerbation or injury. 10-Not Attempted due to Environmental Limitations-(lack of equipment, weather restraints, etc.). 88-Not Attempted due to Medical Conditions or Safety Concerns. ADL PLOF Comments Pt reports having respiratory care assistant assistance at home. Only wears overhead shirt, slip on shoes, and typically able to don underwear in order to make herself as independent as possible. She has a tub/shower with a SC, wears O2 continuously. Self Care: Needed Some Help Functional Cognition: Independent OT Current Status Subjective Pt up in recliner, agreeable to OT tx. Mental Status/Objective Patient Orientation: Person, Place, Situation Attachments: Oxygen, Telemetry Current Upper Extremity ROM WFL Upper Extremity Strength WFL ADL-Treatment Shower/Bathe Self (QC): 3 (this is baseline) On/Off Footwear (QC): 6 (slip on shoes.) Toileting Hygiene (QC): 6 (Pt demo'd ability to complete hygiene.) Other Treatments Pt up in recliner, agreeable to OT tx. Pt provides information about PLOF and home set up. Pt reports having assistance with ADLs at home. Pt able to reach forward towards her feet, O2 saturation dropping into the low 70%'s, after sitting upright her O2 returned to the 90%'s after a few seconds. Pt able to stand up and simulate toileting and toilet hygiene, independently. Per clinical judgment and pt's ability to reach forward, pt would require min A with washing her feet in the shower, but this is her baseline. Pt is currently at her baseline with ADLs and doesn't require OT services. Post tx, pt in recliner, call light in reach and all needs Education OT Patient Education: Correct positioning, Energy conservation, Modified ADL techniques, Progress toward Goal/Update tx plan, Purpose of tx/functional activities, Rehab process Teaching Recipient: Patient Teaching Methods: Discussion Response to Teaching: Verbalize Understanding OT Network Relay Tester Goals Skilled Nursing Goals 1=Demonstrate adherence to instructed precautions during ADL tasks. 2=Patient will verbalize/demonstrate understanding of assistive devices/modifications for ADL. 3=Patient will improve strength/tolerance for activity to enable patient to perform ADL's. OT Education/Plan Problem List/Assessment Assessment: No Skilled OT Needs ID'd Pt is currently at baseline, having assistance at home at PLOF. No skilled OT services indicated at this time. Discharge Recommendations Plan/Recommendations: Discharge/Goals Met Treatment Plan/Plan of Care Patient would benefit from OT for education, treatment and training to promote independence in ADL's, mobility, safety and/or upper extremity function for ADL's. Plan of Care: ADL Retraining, Functional Mobility Treatment Duration: Jun 22, 2022 Frequency: 1 time per week (eval only) Rehab Potential: Fair Time/GCodes Start Time: 14:10 Stop Time: 14:26 Total Time Billed (hr/min): 16 Billed Treatment Time 1, MOHAMUD LAM OT Jun 22, 2022 14:58
--- NOTE | 2022-06-22 15:50 | Physician Query Clarification ---
Physician Query-General Query to Physician: The medical record reflects the following clinical scenario: The patient, in the setting of History/Risk factors, On Plavix, aspirin and Eliquis, had recent stent with need for antigcoags/antiplatelets Clinical Findings Suspected GI bleeding, Hgb 5.2, INR 2.7, Treatment Holding some anticoagulants/evaluating risk of anticoagulants, PRBC's, H and H monitoring, Surgical Consult, Question: Can you further specify "Presumed GI blood loss due to Plavix aspirin and Eliquis" per the clinical indicators above? Please document your response in the Progress Notes or Discharge Summary. 1. Hemorrhagic disorder due to intrinsic circulating anti coagulants, present on admission 2. Other, with explanation of clinical findings 3. Clinically undetermined, no explanation for clinical findings Please clarify and document your clinical opinion in the Progress Notes and Discharge Summary including the definitive and/or presumptive diagnosis, (suspected or probable), related to the above clinical findings. Please include clinical findings supporting your diagnosis. In responding to this query, please exercise your independent professional judgment. The purpose of this communication is to more accurately reflect the complexity of your patients condition. The fact that a question is asked does not imply that any particular answer is desired or expected. Thank you for timely response to this clarification. Lucy Byrd RN, MSN Clinical Agency Appointments Supervisor [phone] PHYSICIAN RESPONSE: Based on the clinical findings in the record, please respond to the query above on this document as an addendum. Physician Response: Physician Response 1 If you have questions please contact: Contracting Executive: Ext: Thank you for your time and cooperation. Clinical Agency Appointments Supervisor/Contracting Executive This is a permanent part of the medical record LUCY BYRD Jun 22, 2022 15:50 AYUSH SEXTON DO Jun 22, 2022 21:11
[2022-06-22 18:03] VITALS: BP 106/47
[2022-06-22 19:45] VITALS: BP 107/65
[2022-06-22] MEDS: ROSUVASTATIN 20 MG (CRESTOR) TABLET PO SCH (20:45)
[2022-06-22] MEDS: DULoxetine 30 MG (CYMBALTA) CAP PO SCH (20:45)
[2022-06-22] MEDS: MONTELUKAST 10 MG (SINGULAIR) TAB PO SCH (20:46)
[2022-06-23] VITALS: BP 102/56
[2022-06-23 04:00] VITALS: BP 94/56
[2022-06-23 06:17] LABS: BASOPHILS % (AUTO) 1 % (0-10); EOSINOPHILS # (AUTO) 0.2 10^3/uL (0.0-0.3); EOSINOPHILS % (AUTO) 4 % (0-10); HEMATOCRIT 25 % (35-52); HEMOGLOBIN 7.9 g/dL (11.5-16.0); LYMPHOCYTES # (AUTO) 0.9 10^3/uL (1.0-4.0); LYMPHOCYTES % (AUTO) 19 % (12-44); MEAN CORPUSCULAR HEMOGLOBIN 30 pg (25-34); MEAN CORPUSCULAR HGB CONC 32 g/dL (32-36); MEAN CORPUSCULAR VOLUME 95 fL (80-99); MEAN PLATELET VOLUME 9.5 fL (9.0-12.2); MONOCYTES # (AUTO) 0.7 10^3/uL (0.0-1.0); MONOCYTES % (AUTO) 14 % (0-12); NEUTROPHILS # (AUTO) 3.1 10^3/uL (1.8-7.8); NEUTROPHILS % (AUTO) 62 % (42-75); PLATELET COUNT 206 10^3/uL (130-400)
--- NOTE | 2022-06-23 06:25 | Discharge Summary ---
Diagnosis/Chief Complaint Date of Admission Jun 20, 2022 at 18:21 Date of Discharge Discharge Date: Jun 23, 2022 Discharge Diagnosis Admission Dx Anemia -Hgb of 5.4 on admission, currently 8.4 -2U of pRBCs last night and 1U this AM -gen surg consulted -eICU consulted -iron panel pending -Protonix for GI prophylaxis -continue to monitor Hgb closely, will need another transfusion if Hgb goes below 7 Atrial fibrillation -rate controlled -underwent ablation in October 2021 at [facility] -was on Xarelto, has been stopped -cardiology consulted CKD -followed by nephrology as an outpt -BUN and Cr close to pt's baseline -will continue to monitor RFTs Pulmonary HTN -CXR showed some central pulmonary venous congestion. -starting lasix Hypokalemia -K+ of 3.4 today -on 10mEq of K+ daily, will continue to monitor Hypothyroidism -restart home levothyroxine HLD -Crestor 20mg Reason Hospital Visit Chief complaint: Symptomatic anemia severe in type History of present illness: This is a 76-year-old female clinic patient of [facility] with multiple comorbidities including atrial fibrillation status post ablation and congestive heart failure along with severe COPD oxygen dependent who presented to the ER with shortness of breath found to have hemoglobin of 5.4 requiring 2 units of blood yesterday and additional [address] Russell. She was previously on Plavix and aspirin and Eliquis. No pain is reported. Patient reports feeling much better and just overall much improved. Discharge Summary Discharge Physical Examination Allergies: Coded Allergies: Penicillins (Verified Allergy, Unknown, RASH, HAS HAD ROCEPHIN IN THE PAST W/O ISSUE, 09/27/16) clarithromycin (Verified Allergy, Unknown, 09/27/16) erythromycin base (Verified Allergy, Unknown, 09/27/16) levofloxacin (Verified Allergy, Unknown, 09/04/17) morphine (Verified Allergy, Unknown, TAKES LORTAB AT HOME, 09/27/16) Vitals & I&Os Vital Signs Date Time Temp Pulse Resp B/P (MAP) Pulse Ox O2 Delivery O2 Flow Rate FiO2 06/23/22 11:46 36.5 73 20 135/62 (86) 100 Nasal Cannula 2.00 06/20/22 19:59 28 General Appearance: Alert, Oriented X3, Cooperative Respiratory: Clear to Auscultation Cardiovascular: Regular Rate Psych/Mental Status: Mental Status NL Hospital Course Was the Problem List Reviewed?: Yes Hospital course: Patient had an uneventful hospital course after she was admitted to the ICU for severe anemia presumed GI bleeding. She did require 3 units of blood. All anticoagulation Plavix and aspirin held. Plavix restarted once no overt bleeding noted. Iron level noted to be low so ordered iron infusions to be started in inpatient rehab along with B12 supplement. Multaq restarted by cardiology. Lasix restarted also. Labs remained stable and she was discharged to inpatient rehab. Labs (last 24 hrs) Laboratory Tests 06/20/22 15:50: Iron Level 32L, Total Iron Binding Capacity 379H, Unsaturated Iron Binding Capacity 347, Transferrin % Saturation 8L, Ferritin 49.2 06/20/22 15:57: White Blood Count 9.8, Red Blood Count 1.63L, Hemoglobin 5.2*L, Hematocrit 17*L, Mean Corpuscular Volume 103H, Mean Corpuscular Hemoglobin 32, Mean Corpuscular Hemoglobin Concent 31L, Red Cell Distribution Width 19.6H, Platelet Count 284, Mean Platelet Volume 9.9, Immature Granulocyte % (Auto) 1, Neutrophils (%) (Auto) 76H, Lymphocytes (%) (Auto) 15, Monocytes (%) (Auto) 6, Eosinophils (%) (Auto) 1, Basophils (%) (Auto) 1, Neutrophils # (Auto) 7.4, Lymphocytes # (Auto) 1.5, Monocytes # (Auto) 0.6, Eosinophils # (Auto) 0.1, Basophils # (Auto) 0.1, Immature Granulocyte # (Auto) 0.1, Prothrombin Time 29.2H, INR Comment 2.7H, Activated Partial Thromboplast Time 39H, D-Dimer 0.31, Sodium Level 135, Potassium Level 3.5L, Chloride Level 94L, Carbon Dioxide Level 27, Anion Gap 14, Blood Urea Nitrogen 35H, Creatinine 1.62H, Estimat Glomerular Filtration Rate 33, BUN/Creatinine Ratio 22, Glucose Level 126H, Calcium Level 8.9, Corrected Calcium 9.1, Magnesium Level 2.1, Total Bilirubin 0.6, Aspartate Amino Transf (AST/SGOT) 18, Alanine Aminotransferase (ALT/SGPT) 10, Alkaline Phosphatase 68, Total Creatine Kinase 53, Creatine Kinase MB 1.0, Myoglobin 106.7H, Troponin I < 0.028, B-Type Natriuretic Peptide 204.5H, Total Protein 6.3L, Albumin 3.7 06/20/22 16:08: Blood Gas Puncture Site L RADIAL, Blood Gas Patient Temperature 36.8, Arterial Blood pH 7.42, Arterial Blood Partial Pressure CO2 45, Arterial Blood Partial Pressure O2 128H, Arterial Blood HCO3 29H, Arterial Blood Total CO2 30.2, Arterial Blood Oxygen Saturation 99, Arterial Blood Base Excess 4.4H, Josué Test YES-POS, Blood Gas Ventilator Setting NO, Blood Gas Inspired Oxygen 3L 06/21/22 00:20: Red Blood Count 2.40L, Hemoglobin 7.3#L, Hematocrit 22L, Absolute Reticulocyte Count 174H, Percent Reticulocyte Count 7.26H 06/21/22 04:30: Sodium Level 139, Potassium Level 3.4L, Chloride Level 101, Carbon Dioxide Level 27, Anion Gap 11, Blood Urea Nitrogen 30H, Creatinine 1.45H, Estimat Glomerular Filtration Rate 38, BUN/Creatinine Ratio 21, Glucose Level 144H, Calcium Level 8.5, Corrected Calcium 9.1, Phosphorus Level 3.4, Magnesium Level 2.1, Total Bilirubin 1.1H, Aspartate Amino Transf (AST/SGOT) 17, Alanine Aminotransferase (ALT/SGPT) 8, Alkaline Phosphatase 61, Total Protein 5.6L, Albumin 3.3 06/21/22 04:50: White Blood Count 7.2, Red Blood Count 2.31L, Hemoglobin 7.0L, Hematocrit 22L, Mean Corpuscular Volume 94, Mean Corpuscular Hemoglobin 30, Mean Corpuscular Hemoglobin Concent 32, Red Cell Distribution Width 20.4H, Platelet Count 202, Mean Platelet Volume 9.8, Immature Granulocyte % (Auto) 1, Neutrophils (%) (Auto) 72, Lymphocytes (%) (Auto) 16, Monocytes (%) (Auto) 7, Eosinophils (%) (Auto) 3, Basophils (%) (Auto) 1, Neutrophils # (Auto) 5.2, Lymphocytes # (Auto) 1.2, Monocytes # (Auto) 0.5, Eosinophils # (Auto) 0.2, Basophils # (Auto) 0.1, Immature Granulocyte # (Auto) 0.1 06/21/22 14:12: Hemoglobin 8.4L 06/22/22 04:50: Sodium Level 139, Potassium Level 3.8, Chloride Level 104, Carbon Dioxide Level 27, Anion Gap 8, Blood Urea Nitrogen 23H, Creatinine 1.21, Estimat Glomerular Filtration Rate 47, BUN/Creatinine Ratio 19, Glucose Level 99, Calcium Level 8.9, Corrected Calcium 9.5, Phosphorus Level 3.4, Magnesium Level 2.0, Total Bilirubin 0.7, Aspartate Amino Transf (AST/SGOT) 18, Alanine Aminotransferase (ALT/SGPT) 10, Alkaline Phosphatase 81, Total Protein 5.7L, Albumin 3.3, White Blood Count 5.9, Red Blood Count 2.71L, Hemoglobin 8.3L, Hematocrit 26L, Mean Corpuscular Volume 95, Mean Corpuscular Hemoglobin 31, Mean Corpuscular Hemoglobin Concent 32, Red Cell Distribution Width 20.2H, Platelet Count 208, Mean Platelet Volume 9.6, Immature Granulocyte % (Auto) 1, Neutrophils (%) (Auto) 71, Lymphocytes (%) (Auto) 14, Monocytes (%) (Auto) 11, Eosinophils (%) (Auto) 3, Basophils (%) (Auto) 0, Neutrophils # (Auto) 4.2, Lymphocytes # (Auto) 0.8L, Monocytes # (Auto) 0.6, Eosinophils # (Auto) 0.2, Basophils # (Auto) 0.0, Immature Granulocyte # (Auto) 0.1 06/22/22 22:56: Stool Occult Blood Immunoassay POSITIVEH 06/23/22 05:53: White Blood Count 5.0, Red Blood Count 2.61L, Hemoglobin 7.9L, Hematocrit 25L, Mean Corpuscular Volume 95, Mean Corpuscular Hemoglobin 30, Mean Corpuscular Hemoglobin Concent 32, Red Cell Distribution Width 19.3H, Platelet Count 206, Mean Platelet Volume 9.5, Immature Granulocyte % (Auto) 1, Neutrophils (%) (Auto) 62, Lymphocytes (%) (Auto) 19, Monocytes (%) (Auto) 14H, Eosinophils (%) (Auto) 4, Basophils (%) (Auto) 1, Neutrophils # (Auto) 3.1, Lymphocytes # (Auto) 0.9L, Monocytes # (Auto) 0.7, Eosinophils # (Auto) 0.2, Basophils # (Auto) 0.0, Immature Granulocyte # (Auto) 0.0, Sodium Level 140, Potassium Level 3.9, Chlor patricia Level 105, Carbon Dioxide Level 25, Anion Gap 10, Blood Urea Nitrogen 18, Creatinine 0.99, Estimat Glomerular Filtration Rate 59, BUN/Creatinine Ratio 18, Glucose Level 106H, Calcium Level 8.9, Corrected Calcium 9.5, Total Bilirubin 0.5, Aspartate Amino Transf (AST/SGOT) 20, Alanine Aminotransferase (ALT/SGPT) 11, Alkaline Phosphatase 81, Total Protein 5.5L, Albumin 3.3 Microbiology 06/20/22 MRSA Screen - Final, Complete MRSA not isolated Pending Labs Microbiology Date/Time Source Procedure Growth Status 06/20/22 19:51 Nasal MRSA Screen - Final MRSA not isolated Complete Laboratory Tests 06/20/22 15:50: Iron Level 32, Total Iron Binding Capacity 379, Unsaturated Iron Binding Capacity 347, Transferrin % Saturation 8, Ferritin 49.2 06/20/22 15:57: White Blood Count 9.8, Red Blood Count 1.63, Hemoglobin 5.2, Hematocrit 17, Mean Corpuscular Volume 103, Mean Corpuscular Hemoglobin 32, Mean Corpuscular Hemoglobin Concent 31, Red Cell Distribution Width 19.6, Platelet Count 284, Mean Platelet Volume 9.9, Immature Granulocyte % (Auto) 1, Neutrophils (%) (Auto) 76, Lymphocytes (%) (Auto) 15, Monocytes (%) (Auto) 6, Eosinophils (%) (Auto) 1, Basophils (%) (Auto) 1, Neutrophils # (Auto) 7.4, Lymphocytes # (Auto) 1.5, Monocytes # (Auto) 0.6, Eosinophils # (Auto) 0.1, Basophils # (Auto) 0.1, Immature Granulocyte # (Auto) 0.1, Prothrombin Time 29.2, INR Comment 2.7, Activated Partial Thromboplast Time 39, D-Dimer 0.31, Sodium Level 135, Potassium Level 3.5, Chloride Level 94, Carbon Dioxide Level 27, Anion Gap 14, Blood Urea Nitrogen 35, Creatinine 1.62, Estimat Glomerular Filtration Rate 33, BUN/Creatinine Ratio 22, Glucose Level 126, Calcium Level 8.9, Corrected Calcium 9.1, Magnesium Level 2.1, Total Bilirubin 0.6, Aspartate Amino Transf (AST/SGOT) 18, Alanine Aminotransferase (ALT/SGPT) 10, Alkaline Phosphatase 68, Total Creatine Kinase 53, Creatine Kinase MB 1.0, Myoglobin 106.7, Troponin I < 0.028, B-Type Natriuretic Peptide 204.5, Total Protein 6.3, Albumin 3.7 06/20/22 16:08: Blood Gas Puncture Site L RADIAL, Blood Gas Patient Temperature 36.8, Arterial Blood pH 7.42, Arterial Blood Partial Pressure CO2 45, Arterial Blood Partial Pressure O2 128, Arterial Blood HCO3 29, Arterial Blood Total CO2 30.2, Arterial Blood Oxygen Saturation 99, Arterial Blood Base Excess 4.4, Josué Test YES-POS, Blood Gas Ventilator Setting NO, Blood Gas Inspired Oxygen 3L 06/21/22 00:20: Red Blood Count 2.40, Hemoglobin 7.3, Hematocrit 22, Absolute Reticulocyte Count 174, Percent Reticulocyte Count 7.26 06/21/22 04:30: Sodium Level 139, Potassium Level 3.4, Chloride Level 101, Carbon Dioxide Level 27, Anion Gap 11, Blood Urea Nitrogen 30, Creatinine 1.45, Estimat Glomerular Filtration Rate 38, BUN/Creatinine Ratio 21, Glucose Level 144, Calcium Level 8.5, Corrected Calcium 9.1, Phosphorus Level 3.4, Magnesium Level 2.1, Total Bilirubin 1.1, Aspartate Amino Transf (AST/SGOT) 17, Alanine Aminotransferase (ALT/SGPT) 8, Alkaline Phosphatase 61, Total Protein 5.6, Albumin 3.3 06/21/22 04:50: White Blood Count 7.2, Red Blood Count 2.31, Hemoglobin 7.0, Hematocrit 22, Mean Corpuscular Volume 94, Mean Corpuscular Hemoglobin 30, Mean Corpuscular Hemoglobin Concent 32, Red Cell Distribution Width 20.4, Platelet Count 202, Mean Platelet Volume 9.8, Immature Granulocyte % (Auto) 1, Neutrophils (%) (Auto) 72, Lymphocytes (%) (Auto) 16, Monocytes (%) (Auto) 7, Eosinophils (%) (Auto) 3, Basophils (%) (Auto) 1, Neutrophils # (Auto) 5.2, Lymphocytes # (Auto) 1.2, Monocytes # (Auto) 0.5, Eosinophils # (Auto) 0.2, Basophils # (Auto) 0.1, Immature Granulocyte # (Auto) 0.1 06/21/22 14:12: Hemoglobin 8.4 06/22/22 04:50: Sodium Level 139, Potassium Level 3.8, Chloride Level 104, Carbon Dioxide Level 27, Anion Gap 8, Blood Urea Nitrogen 23, Creatinine 1.21, Estimat Glomerular Filtration Rate 47, BUN/Creatinine Ratio 19, Glucose Level 99, Calcium Level 8.9, Corrected Calcium 9.5, Phosphorus Level 3.4, Magnesium Level 2.0, Total Bilirubin 0.7, Aspartate Amino Transf (AST/SGOT) 18, Alanine Aminotransferase (ALT/SGPT) 10, Alkaline Phosphatase 81, Total Protein 5.7, Albumin 3.3, White Blood Count 5.9, Red Blood Count 2.71, Hemoglobin 8.3, Hematocrit 26, Mean Corpuscular Volume 95, Mean Corpuscular Hemoglobin 31, Mean Corpuscular Hemoglobin Concent 32, Red Cell Distribution Width 20.2, Platelet Count 208, Mean Platelet Volume 9.6, Immature Granulocyte % (Auto) 1, Neutrophils (%) (Auto) 71, Lymphocytes (%) (Auto) 14, Monocytes (%) (Auto) 11, Eosinophils (%) (Auto) 3, Basophils (%) (Auto) 0, Neutrophils # (Auto) 4.2, Lymphocytes # (Auto) 0.8, Monocytes # (Auto) 0.6, Eosinophils # (Auto) 0.2, Basophils # (Auto) 0.0, Immature Granulocyte # (Auto) 0.1 06/22/22 22:56: Stool Occult Blood Immunoassay POSITIVE 06/23/22 05:53: White Blood Count 5.0, Red Blood Count 2.61, Hemoglobin 7.9, Hematocrit 25, Mean Corpuscular Volume 95, Mean Corpuscular Hemoglobin 30, Mean Corpuscular Hemoglobin Concent 32, Red Cell Distribution Width 19.3, Platelet Count 206, Mean Platelet Volume 9.5, Immature Granulocyte % (Auto) 1, Neutrophils (%) (Auto) 62, Lymphocytes (%) (Auto) 19, Monocytes (%) (Auto) 14, Eosinophils (%) (Auto) 4, Basophils (%) (Auto) 1, Neutrophils # (Auto) 3.1, Lymphocytes # (Auto) 0.9, Monocytes # (Auto) 0.7, Eosinophils # (Auto) 0.2, Basophils # (Auto) 0.0, Immature Granulocyte # (Auto) 0.0, Sodium Level 140, Potassium Level 3.9, Chloride Level 105, Carbon Dioxide Level 25, Anion Gap 10, Blood Urea Nitrogen 18, Creatinine 0.99, Estimat Glomerular Filtration Rate 59, BUN/Creatinine Ratio 18, Glucose Level 106, Calcium Level 8.9, Corrected Calcium 9.5, Total Bilirubin 0.5, Aspartate Amino Transf (AST/SGOT) 20, Alanine Aminotransferase (ALT/SGPT) 11, Alkaline Phosphatase 81, Total Protein 5.5, Albumin 3.3, Vitamin B12 Level [Pending] Discharge Home Medications: Active Scripts Active Reported Nystatin 100,000 Unit/Ml Oral.susp 4 Ml PO BID PRN Hydrocodone-Acetamin 10-325 mg (Hydrocodone/Acetaminophen) 10 Mg-325 Mg Tablet 1 Each PO Q6H PRN Aspirin EC (Aspirin) 81 Mg Tablet.dr 81 Mg PO DAILY Clopidogrel (Clopidogrel Bisulfate) 75 Mg Tablet 75 Mg PO DAILY Potassium Chloride 10 Meq Capsule.er 10 Meq PO DAILY Nitroglycerin 0.4 Mg Tab.subl 0.4 Mg SL UD PRN Multaq (Dronedarone HCl) 400 Mg Tablet 400 Mg PO BID Krill Oil 500 Mg Capsule 500 Mg PO HS Isosorbide Mononitrate ER (Isosorbide Mononitrate) 30 Mg Tab.er.24h 30 Mg PO DAILY Cymbalta (Duloxetine HCl) 30 Mg Capsule.dr 30 Mg PO HS Bystolic (Nebivolol HCl) 5 Mg Tablet 2.5 Mg PO BID TAKES OF A 5MG TAB Levothyroxine Sodium 112 Mcg Tablet 112 Mcg PO DAILY Lasix (Furosemide) 40 Mg Tablet 40 Mg PO DAILY Magnesium (Magnesium Oxide) 400 Mg Tablet 400 Mg PO DAILY Symbicort 160-4.5 Mcg Inhaler (Budesonide/Formoterol Fumarate) 10.2 Gm Hfa.aer.ad 2 Puff IH BID Crestor (Rosuvastatin Calcium) 20 Mg Tablet 20 Mg PO HS Tylenol Extra Strength (Acetaminophen) 500 Mg Tablet 1,000 Mg PO Q8H PRN TAKES 2 (500MG) TABLETS Proair Hfa (Albuterol Sulfate) 1 Puff Puff 1 Puff IH Q4H PRN Vitamin D3 (Cholecalciferol (Vitamin D3)) 125 Mcg Capsule 125 Mcg PO DAILY Iron (Ferrous Sulfate) 325 Mg (65 Mg Iron) Tablet 325 Mg PO HS Montelukast Sodium 10 Mg Tablet 10 Mg PO HS Allopurinol 300 Mg Tablet 300 Mg PO DAILY Xarelto (Rivaroxaban) 20 Mg Tablet 20 Mg PO HS Instructions to patient/family Please see electronic discharge instructions given to patient. Diagnosis/Problems Diagnosis/Problems (1) Severe anemia Status: Acute (2) Dyspnea on minimal exertion Status: Acute (3) Chest pain (4) CAD (coronary artery disease) (5) Atrial fibrillation Clinical Quality Measures AMI/AHF: ASA po Prior to arrival: Yes (81MG THIS AM) DVT/VTE Risk/Contraindication: Contraindications-Pharm: Other *list below* Other: AYUSH Palomino DO Jun 23, 2022 06:25
[2022-06-23] MEDS: LEVOTHYROXINE 112 MCG (LEVOTHROID) TAB PO SCH (06:29)
[2022-06-23] MEDS: KCL 10 MEQ TAB (MICRO K) PO SCH (06:29)
[2022-06-23 06:31] LABS: ALBUMIN 3.3 GM/DL (3.2-4.5); POTASSIUM 3.9 MMOL/L (3.6-5.0)
[2022-06-23 06:33] LABS: CALCIUM 8.9 MG/DL (8.5-10.1)
[2022-06-23 06:34] LABS: TOTAL PROTEIN 5.5 GM/DL (6.4-8.2)
[2022-06-23 06:36] LABS: BILIRUBIN,TOTAL 0.5 MG/DL (0.1-1.0)
[2022-06-23 06:37] LABS: CREATININE SERUM 0.99 MG/DL (0.60-1.30)
--- NOTE | 2022-06-23 07:44 | Progress Note - Surgery ---
BRITTANIE HURTADO 06/23/22 0744: Subjective Date Seen by a Provider: Jun 23, 2022 Time Seen by a Provider: 07:41 Subjective/Events-last exam Patient resting upon entering room. States she slept well and feels better today. She also feels like she got some of her strength back yesterday after walking around the floor and sitting up in her chair yesterday. Reports 1 BM since yesterday. Denies any bloody stools. Hb slightly decreased from 8.3 yesterday to 7.9 today. Denies any chest pain, shortness of breath, fever at this time. Objective Exam Vital Signs Date Time Temp Pulse Resp B/P (MAP) Pulse Ox O2 Delivery O2 Flow Rate FiO2 06/23/22 04:00 36.5 76 16 94/56 (69) 97 Nasal Cannula 2.00 06/23/22 00:00 36.7 82 18 102/56 (71) 99 Nasal Cannula 2.00 06/22/22 22:00 99 Nasal Cannula 2.00 06/22/22 20:00 99 Nasal Cannula 2.00 06/22/22 19:45 36.4 81 20 107/65 (79) 99 Nasal Cannula 2.00 06/22/22 19:26 94 Nasal Cannula 2.00 06/22/22 18:10 Nasal Cannula 2.00 06/22/22 18:03 36.8 73 20 106/47 (66) 99 Nasal Cannula 2.00 06/22/22 16:00 36.4 06/22/22 16:00 98 Nasal Cannula 2.00 06/22/22 16:00 86 30 90 Nasal Cannula 2.00 06/22/22 14:00 75 31 120/62 98 Nasal Cannula 2.00 06/22/22 13:00 67 9 110/57 100 Nasal Cannula 2.00 06/22/22 12:57 66 06/22/22 12:00 96 Nasal Cannula 2.00 06/22/22 12:00 66 25 101/63 98 Nasal Cannula 2.00 06/22/22 11:00 62 11 102/52 99 Nasal Cannula 2.00 06/22/22 10:00 67 16 124/62 100 Nasal Cannula 2.00 06/22/22 09:00 70 22 108/63 100 Nasal Cannula 2.00 06/22/22 08:00 36.5 06/22/22 08:00 74 13 89/57 99 Nasal Cannula 2.00 06/22/22 08:00 99 Nasal Cannula 2.00 I & O 06/23/22 07:00 Intake Total 1600 ml Output Total 475 ml Balance 1125 ml Capillary Refill : Less Than 3 Seconds General Appearance: No Apparent Distress, Chronically ill HEENT: PERRL/EOMI, Normal ENT Inspection Neck: Full Range of Motion, Non Tender, Supple Respiratory: Chest Non Tender, No Accessory Muscle Use, No Respiratory Distress Cardiovascular: No Edema, No JVD Peripheral Pulses: 2+ Radial Pulses (R), 2+ Radial Pulses (L) Gastrointestinal: non tender, soft Extremity: Normal Inspection, Non Tender Neurologic/Psychiatric: Alert, Oriented x3, Normal Mood/Affect Skin: Normal Color, Warm/Dry Lymphatic: No Adenopathy (of supraclavicular or axillary ) Results Lab Laboratory Tests 06/23/22 05:53: White Blood Count 5.0, Red Blood Count 2.61L, Hemoglobin 7.9L, Hematocrit 25L, Mean Corpuscular Volume 95, Mean Corpuscular Hemoglobin 30, Mean Corpuscular Hemoglobin Concent 32, Red Cell Distribution Width 19.3H, Platelet Count 206, Mean Platelet Volume 9.5, Immature Granulocyte % (Auto) 1, Neutrophils (%) (Auto) 62, Lymphocytes (%) (Auto) 19, Monocytes (%) (Auto) 14H, Eosinophils (%) (Auto) 4, Basophils (%) (Auto) 1, Neutrophils # (Auto) 3.1, Lymphocytes # (Auto) 0.9L, Monocytes # (Auto) 0.7, Eosinophils # (Auto) 0.2, Basophils # (Auto) 0.0, Immature Granulocyte # (Auto) 0.0, Sodium Level 140, Potassium Level 3.9, Chloride Level 105, Carbon Dioxide Level 25, Anion Gap 10, Blood Urea Nitrogen 18, Creatinine 0.99, Estimat Glomerular Filtration Rate 59, BUN/Creatinine Ratio 18, Glucose Level 106H, Calcium Level 8.9, Corrected Calcium 9.5, Total Bilirubin 0.5, Aspartate Amino Transf (AST/SGOT) 20, Alanine Aminotransferase (ALT/SGPT) 11, Alkaline Phosphatase 81, Total Protein 5.5L, Albumin 3.3 Microbiology 06/20/22 MRSA Screen - Final, Complete MRSA not isolated Assessment/Plan Assessment/Plan Assessment/Plan Iron deficiency Anemia Afib CAD Pt received 3 units PRBCs since admission, her Hb this morning is 7.9. She does not need any surgery at the moment. Continue to monitor labs, abdominal checks and transfuse as needed. Continue Plavix. Clinical Quality Measures AMI/AHF: ASA po Prior to arrival: Yes (81MG THIS AM) DVT/VTE Risk/Contraindication: Contraindications-Pharm: Other *list below* Other: YULISA Macias DO 06/23/22 1346: Subjective Subjective/Events-last exam Feeling better today. Hgb slight drop. No new complaints. Denies n/v fever sweats chills shortness of breath or chest pain. Objective Exam General Appearance: No Apparent Distress, Chronically ill HEENT: PERRL/EOMI, Normal ENT Inspection Neck: Non Tender, Supple Respiratory: Chest Non Tender, No Accessory Muscle Use, No Respiratory Distress Cardiovascular: Regular Rate, Rhythm, No JVD Gastrointestinal: non tender, soft Extremity: Normal Inspection, Non Tender Neurologic/Psychiatric: Alert, Oriented x3, Normal Mood/Affect Skin: Normal Color, Warm/Dry Lymphatic: No Adenopathy (of supraclavicular or axillary ) Assessment/Plan Assessment/Plan Assessment/Plan Iron deficiency Anemia Afib CAD Pt received 3 units PRBCs since admission, her Hb this morning is 7.9. She does not need any surgery at the moment. Continue to monitor labs, abdominal checks and transfuse as needed. Continue Plavix. Diet as tolerates on Protonix Supervisory-Addendum Brief Verification & Attestation Participated in pt care: history, MDM, physical Personally performed: exam, history, MDM, supervision of care Care discussed with: Medical Student Procedures: n/a Results interpretation: Verified all documentation Verification and Attestation of Medical Student E/M Service A medical student performed and documented this service in my presence. I reviewed and verified all information documented by the medical student and made modifications to such information, when appropriate. I personally performed the physical exam and medical decision making. Yulisa Bedolla, Jun 23, 2022,13:48 BRITTANIE HURTADO Jun 23, 2022 07:44 YULISA BEDOLLA DO Jun 23, 2022 13:46
[2022-06-23] MEDS: RT--FLUTICASONE/SALMETEROL 232-14 (AIRDUO RespiCLICK) IH SCH (07:56)
[2022-06-23 08:00] VITALS: BP 120/59
[2022-06-23] MEDS: VITAMIN D3 125 MCG (5,000 UNITS) CAPSULE PO SCH (08:26)
[2022-06-23] MEDS: ISOSORBIDE MONONITRATE 30 MG (IMDUR) TAB PO SCH (08:26)
[2022-06-23] MEDS: CLOPIDOGREL 75 MG (PLAVIX) TABLET PO SCH (08:26)
[2022-06-23] MEDS: DOCUSATE SODIUM 100 MG (COLACE) CAP PO SCH (08:26)
[2022-06-23] MEDS: MAGNESIUM OXIDE (MAG-OX)400 MG TAB PO SCH (08:26)
[2022-06-23] MEDS: SENNOSIDES 8.6 MG (SENOKOT) TAB PO SCH (08:26)
[2022-06-23] MEDS: ALLOPURINOL 300 MG (ZYLOPRIM) TAB PO SCH (08:27)
[2022-06-23] MEDS: PANTOPRAZOLE 40 MG (PROTONIX) VIAL IV SCH (08:27)
[2022-06-23] MEDS: NEBIVOLOL 2.5 MG PO SCH (08:29)
[2022-06-23 11:46] VITALS: BP 135/62
[2022-06-23] MEDS ORDERED: FUROSEMIDE 40 MG (LASIX) TAB PO SCH (12:15)
[2022-06-23] MEDS ORDERED: DRONEDARONE 400 MG TABLET PO SCH (12:15)
--- NOTE | 2022-06-23 12:48 | Progress Note - Cardiology ---
Cardiology SOAP Progress Note Subjective: No cp or palp or syncope Gen weakness and malaise No n/v/d Requests resumption of Multaq 400 bid that she has been on for year per the advice of her EP (Dr Miller) to prevent A Fib Objective: I&O/Vital Signs 06/23/22 06/23/22 06/23/22 06/23/22 04:00 08:00 08:00 08:41 Temp 36.5 36.6 Pulse 76 69 Resp 16 16 B/P (MAP) 94/56 (69) 120/59 (79) Pulse Ox 97 96 94 O2 Delivery Nasal Cannula Nasal Cannula Nasal Cannula Nasal Cannula O2 Flow Rate 2.00 2.00 2.00 2.00 06/23/22 11:46 Temp 36.5 Pulse 73 Resp 20 B/P (MAP) 135/62 (86) Pulse Ox 100 O2 Delivery Nasal Cannula O2 Flow Rate 2.00 06/23/22 00:00 Intake Total 600 ml Output Total 250 ml Balance 350 ml Weight (Pounds): 160 Weight (Ounces): 4.0 Weight (Calculated Kilograms): [id number] Constitutional: AAO x 3, well-developed, well-nourished Respiratory: No accessory muscle use, No respiratory distress; chest expansion is symmetric, chest is bilaterally symmetric, other (diminished bases bilate) Cardiovascular: regular rate-rhythm; No JVD; S1 and S2 Gastrointestional: No tender; soft, round, audible bowel sounds Extremities: no lower extremity edema bilateral Neurologic/Psychiatric: grossly intact (moves all extremities) Skin: No rash on exposed areas, No ulcerations on exposed areas Results/Procedures: Labs Laboratory Tests 06/22/22 22:56: Stool Occult Blood Immunoassay POSITIVEH 06/23/22 05:53: White Blood Count 5.0, Red Blood Count 2.61L, Hemoglobin 7.9L, Hematocrit 25L, Mean Corpuscular Volume 95, Mean Corpuscular Hemoglobin 30, Mean Corpuscular Hemoglobin Concent 32, Red Cell Distribution Width 19.3H, Platelet Count 206, Mean Platelet Volume 9.5, Immature Granulocyte % (Auto) 1, Neutrophils (%) (Aut o) 62, Lymphocytes (%) (Auto) 19, Monocytes (%) (Auto) 14H, Eosinophils (%) (Au to) 4, Basophils (%) (Auto) 1, Neutrophils # (Auto) 3.1, Lymphocytes # (Auto) 0.9L, Monocytes # (Auto) 0.7, Eosinophils # (Auto) 0.2, Basophils # (Auto) 0.0, Immature Granulocyte # (Auto) 0.0, Sodium Level 140, Potassium Level 3.9, Chloride Level 105, Carbon Dioxide Level 25, Anion Gap 10, Blood Urea Nitrogen 18, Creatinine 0.99, Estimat Glomerular Filtration Rate 59, BUN/Creatinine Ratio 18, Glucose Level 106H, Calcium Level 8.9, Corrected Calcium 9.5, Total Bilirubin 0.5, Aspartate Amino Transf (AST/SGOT) 20, Alanine Aminotransferase (ALT/SGPT) 11, Alkaline Phosphatase 81, Total Protein 5.5L, Albumin 3.3 Microbiology 06/20/22 MRSA Screen - Final, Complete MRSA not isolated Laboratory Tests 06/21/22 14:12 06/22/22 04:50 06/23/22 05:53 A/P: Assessment: Anemia - H/H improved following transfusions - management per medical/surgical services Chest pain - resolved after blood transfusion. Paroxysmal atrial fibrillation/flutter, - Patient was treated with amiodarone in the past and it was stopped due to the underlying lung disease and shortness of breath, patient is oxygen dependent - She was intolerant to higher dose of beta-blockers due to bradycardia and syncope - Currently tolerating Bystolic - Patient has failed attempt for cardioversion on October 06, 2021, referred to Dr. Miller at , underwent ablation in October 2021. Has occasional breakthrough episodes of afib - maintained on Multaq - OAC is currently being held d/t recent suspected GIB NIKKI was done on October 06, 2021 showing dilated left atrium and left atrial appendage with no clot or thrombus, normal LV size, EF 60%, mild MR, aortic valve sclerosis with no stenosis. Failed attempt for cardioversion Coronary artery disease, history of CABG 3 done in 2006. - Cardiac catheterization was done in February 2014 showing patent LUNA to the LAD, 60 percent stenosis at the distal portion of the LUNA. The proximal LAD has 90 percent stenosis with good flow supply to the LAD system. The vein graft to the obtuse marginal branch is patent with excellent flow distally and the vein graft to the right coronary artery is patent with excellent flow distally. Normal left ventricular size and systolic function. - Cardiac catheterization done January 02, 2021 showing Patent LUNA to LAd, VG to the RCA. VG to the obtuse marginal branch has mod stenosis at an area followed by aneurysmal dilatation. Occluded prox circumflex artery corrected by the vein graft. Occluded prox RCA corrected by the VG. Right PDA was small vessel disease distally. Severe mid LAd stenosis corrected with the LUNA with dual supply to the LAD territory. - Cardiac catheterization done on June 06, 2022 with stenting of the vein graft to the circumflex artery using skypoint stent 3.5 x 23 mm, patent LUNA to LAD and vein graft to the right coronary artery with severe [place] coronary artery disease, small vessel disease. - Plavix and ASA are being held - advise at least Plavix be resumed d/t recent coronary stenting History of frequent premature ventricular contractions. Patient has episodes of frequent paroxysmal atrial tachycardia with wide-complex tachycardia, sees Dr. Miller at [facility]. She is status post Linq implantation that has been followed by Dr. Miller, it was extracted by Dr. Bedolla. Has been doing well. Continue to monitor Hypertension - borderline hypotensive Hyperlipidemia History of carotid stenosis - Left carotid endarterectomy. Last ultrasound report showed moderate disease in the right carotid artery, more significant disease on the left side. Followed and managed by heart and vascular care History of dizziness and lightheadedness. Reporting improvement. Continue to monitor. COPD - managment per Dr. Menjivar Pulmonary hypertension - Dr. Menjivar recommending RHC History of renal failure Hypothyroidism followed and managed by primary care physician. Chronic renal insufficiency - patient is following with Dr. Erica Meza Plan: Anemia of undetermined etiology - H/H improved following transfusions - management per Medical services - we advise that source of bleeding be determined so that OAC can be resumed d/t risk of stroke d/t PAF CAD with recent stenting by Dr. Russell - Plavix is being continued PAF - resume Multaq per patient request Monitor lab closely Clinical Quality Measures AMI/AHF: ASA po Prior to arrival: Yes (81MG THIS AM) TRACY RAINES MD FACP [facility] CCDS Jun 23, 2022 12:48
[2022-06-24] MEDS ORDERED: FUROSEMIDE 40 MG (LASIX) TAB PO SCH (09:00)
== END 2022-06-23 14:16 | DRG 813 ==
LOC: EDUNIT# 15:38 → ER 15:39 → ICU 18:21 → 4TH 06-22 18:04
PROVIDERS: ADMIT Internal Medicine; ATTEND Internal Medicine
DX: D68.318 Other hemorrhagic disorder due to intrinsic circulating anticoagulants, antibodies, or inhibitors (principal); I48.92 Unspecified atrial flutter; I47.1 Supraventricular tachycardia; I13.0 Hypertensive heart and chronic kidney disease with heart failure and stage 1 through stage 4 chronic kidney disease, or unspecified chronic kidney disease; N17.9 Acute kidney failure, unspecified; D50.0 Iron deficiency anemia secondary to blood loss (chronic); N18.9 Chronic kidney disease, unspecified; I27.20 Pulmonary hypertension, unspecified; E87.6 Hypokalemia; E03.9 Hypothyroidism, unspecified; E78.5 Hyperlipidemia, unspecified; J44.9 Chronic obstructive pulmonary disease, unspecified; I50.9 Heart failure, unspecified; I25.10 Atherosclerotic heart disease of native coronary artery without angina pectoris; I48.0 Paroxysmal atrial fibrillation; I65.23 Occlusion and stenosis of bilateral carotid arteries; D50.9 Iron deficiency anemia, unspecified; G62.9 Polyneuropathy, unspecified; K21.9 Gastro-esophageal reflux disease without esophagitis; F41.9 Anxiety disorder, unspecified; F32.A Depression, unspecified; H91.90 Unspecified hearing loss, unspecified ear; E78.00 Pure hypercholesterolemia, unspecified; M19.90 Unspecified osteoarthritis, unspecified site; Z99.81 Dependence on supplemental oxygen; Z95.5 Presence of coronary angioplasty implant and graft; Z95.1 Presence of aortocoronary bypass graft; Z87.891 Personal history of nicotine dependence; Z79.890 Hormone replacement therapy; Z79.899 Other long term (current) drug therapy; Z79.82 Long term (current) use of aspirin; Z79.02 Long term (current) use of antithrombotics/antiplatelets; Z88.0 Allergy status to penicillin; Z88.5 Allergy status to narcotic agent; Z88.1 Allergy status to other antibiotic agents
CPT/HCPCS: 36415; 36430; 51702; 71045; 74176; 80053; 82274; 82550; 82553; 82607; 82728; 82805; 83540; 83550; 83735; 83874; 83880; 84100; 84484; 85014; 85018; 85025; 85045; 85379; 85610; 85730; 86850; 86900; 86901; 86920; 87081; 93005; 93041; 94640; 99291

== ENCOUNTER 2022-06-23 14:05 | Inpatient (IN) | payer MEDICARE, OTHER ==
[~2022-06-23] VITALS: Ht 160 cm; Wt 92.2 kg
--- NOTE | 2022-06-23 13:54 | PM&R Post Admission Assessment ---
PM&R HP Date of Visit: Jun 23, 2022 Time of Visit: 14:30 History of Present Illness CC: Debility from GI bleed and cardiac dysfunction with COPD HPI: This is a 76yoWF clinic patient of mine with multiple severe co-morbidities who presents to ARU due to debility following ICU stay for presumed GIB with sev ere anemia symptomatic type. She has had multiple atrial ablations along with recent cath with stents and was restarted on Plavix and holding ASA and Eliquis. She recently had a scope to evaluate the source of her anemia prompted by her Acute Coordinator who manages her CKD. She remains on O2 24/ due to COPD and diastolic CHF. Her labs have remained stable after 3 units of blood and Lasix and Multtaq were restarted per Cardiology. She has severe anemia so Venofer and B12 will be initiated. PLOF was use of walker at home with O2 tank and currently she is very weak and needs 1 person assist. Past Qzuvbxs-Nfpitf-Gevkat Hx Past Med/Social Hx: Reviewed Nursing Past Med/Soc Hx, Reviewed and Corrections made Patient Social History Marrital Status: cohabiting Employed/Student: retired Alcohol Use: Past History Smoking Status: Former Smoker Former Smoker, Quit: Jan 27, 2007 Type Used: Cigarettes Recent Hopitalizations: No Immunizations Up To Date Tetanus Booster (TDap): Less than 5yrs Date of Pneumonia Vaccine: Jan 05, 2019 Date of Influenza Vaccine: Jul 12, 2021 Seasonal Allergies Seasonal Allergies: No Past Medical History Surgeries: Abdominal, Coronary Stent, Hysterectomy, Orthopedic Respiratory: COPD Cardiac: Atrial Fibrillation, Coronary Artery Disease, Hypertension Neurological: Neuropathy Reproductive: No Female Reproductive Disorders: Denies Genitourinary: Renal Failure, UTI-Chronic Gastrointestinal: Gastroesophageal Reflux Musculoskeletal: Arthritis, Chronic Back Pain, Fractures Endocrine: Hyperthyroidism HEENT: Cataract Loss of Vision: Denies Hearing Impairment: Hard of Hearing Psychosocial: Anxiety, Depression Skin/Integumentary: Eczema, Recent Skin Changes History of Blood Disorders: No Adverse Reaction to Blood [place]: No Family History Cardiovascular disease 19 FATHER 19 MOTHER G8 BROTHER G8 BROTHER FH: CHF (congestive heart failure) 19 MOTHER G8 BROTHER Myocardial infarction 19 FATHER G8 BROTHER G8 BROTHER Heart Disease 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 PM&R Allergy/Meds/Data Review Allergies Coded Allergies: Penicillins (Verified Allergy, Unknown, RASH, HAS HAD ROCEPHIN IN THE PAST W/O ISSUE, 09/27/16) clarithromycin (Verified Allergy, Unknown, 09/27/16) erythromycin base (Verified Allergy, Unknown, 09/27/16) levofloxacin (Verified Allergy, Unknown, 09/04/17) morphine (Verified Allergy, Unknown, TAKES LORTAB AT HOME, 09/27/16) Home Medications Scheduled Allopurinol (Allopurinol), 300 MG PO DAILY, (Reported) Budesonide/Formoterol Fumarate (Symbicort 160-4.5 Mcg Inhaler), 2 PUFF IH BID, (Reported) Cholecalciferol (Vitamin D3) (Vitamin D3), 125 MCG PO DAILY, (Reported) Clopidogrel Bisulfate (Clopidogrel), 75 MG PO DAILY, (Reported) Duloxetine HCl (Cymbalta), 30 MG PO HS, (Reported) Furosemide (Lasix), 40 MG PO DAILY, (Reported) Isosorbide Mononitrate (Isosorbide Mononitrate ER), 30 MG PO DAILY, (Reported) Krill Oil (Krill Oil), 500 MG PO HS, (Reported) Levothyroxine Sodium (Levothyroxine Sodium), 112 MCG PO DAILY, (Reported) Magnesium Oxide (Magnesium), 400 MG PO DAILY, (Reported) Montelukast Sodium (Montelukast Sodium), 10 MG PO HS, (Reported) Nebivolol HCl (Bystolic), 2.5 MG PO BID, (Reported) Potassium Chloride (Potassium Chloride), 10 MEQ PO DAILY, (Reported) Rosuvastatin Calcium (Crestor), 20 MG PO HS, (Reported) Scheduled PRN Acetaminophen (Tylenol Extra Strength), 1,000 MG PO Q8H PRN for PAIN-MILD (1-4), (Reported) Albuterol Sulfate (Proair Hfa), 1 PUFF IH Q4H PRN for SHORTNESS OF BREATH, (Reported) Hydrocodone/Acetaminophen (Hydrocodone-Acetamin 10-325 mg), 1 EACH PO Q6H PRN for PAIN-MODERATE (5-7), (Reported) Nitroglycerin (Nitroglycerin), 0.4 MG SL UD PRN for CHEST PAIN, (Reported) Nystatin (Nystatin), 4 ML PO BID PRN for THRUSH PREVENTION, (Reported) Discontinued Medications Aspirin (Aspirin EC), 81 MG PO DAILY Discontinued Reason: Duplicate Order Aspirin (Aspirin EC), 81 MG PO DAILY, (Reported) Clopidogrel Bisulfate (Clopidogrel), 75 MG PO DAILY Discontinued Reason: Duplicate Order Dronedarone HCl (Multaq), 400 MG PO BID, (Reported) Ferrous Sulfate (Iron), 325 MG PO HS, (Reported) Multivitamin (Multivitamin), 1 EACH PO DAILY, (Reported) Discontinued Reason: No Longer Taking Nebivolol HCl (Bystolic), 2.5 MG PO HS, (Reported) Discontinued Reason: No Longer Taking Pantoprazole Sodium (Protonix), 40 MG PO DAILY Discontinued Reason: No Longer Taking Rivaroxaban (Xarelto), 20 MG PO HS, (Reported) [[place] 10MG-325 Mg], 1 TAB PO Q4-6HRS PRN for PAIN-MODERATE (5-7), (Reported) Discontinued Reason: No Longer Taking Current Medications Current Medications Reviewed Review of Systems Constitutional: see HPI, malaise, weakness EENTM: no symptoms reported Respiratory: dyspnea on exertion Cardiovascular: no symptoms reported Gastrointestinal: no symptoms reported Genitourinary: no symptoms reported Musculoskeletal: back pain Skin: no symptoms reported Psychiatric/Neurological: Anxiety All Other Systems Reviewed Negative Unless Noted: Yes Physical Exam Physical Exam Vital Signs Capillary Refill : Height, Weight, BMI Height: 5'4.00" Weight: 160lbs. 4.0oz. [id number]; 35.42 BMI Method:Estimated General Appearance: No Apparent Distress, WD/WN, Anxious, Chronically ill Eyes: Bilateral Eye Normal Inspection, Bilateral Eye PERRL HEENT: PERRL/EOMI, Normal ENT Inspection, Pharynx Normal Neck: Full Range of Motion, Normal Inspection, Non Tender, Supple, Carotid Bruit Respiratory: Chest Non Tender, Lungs Clear, Normal Breath Sounds, No Accessory Muscle Use, No Respiratory Distress, Decreased Breath Sounds Cardiovascular: Regular Rate, Rhythm, No Edema, No Gallop, No JVD, No Murmur, Normal Peripheral Pulses Gastrointestinal: Normal Bowel Sounds, No Organomegaly, No Pulsatile Mass, Non Tender, Soft Back: Normal Inspection, No CVA Tenderness, No Vertebral Tenderness Extremity: Normal Capillary Refill, Normal Inspection, Normal Range of Motion, Non Tender, No Calf Tenderness, No Pedal Edema Neurologic/Psychiatric: Alert, Oriented x3, No Motor/Sensory Deficits, Normal Mood/Affect, Motor Weakness (generalized) Skin: Normal Color, Warm/Dry Lymphatic: No Adenopathy PM&R Medical Assessment & Plan REHAB/MEDICAL ASSESSMENT AND PLAN: REHAB IMPAIRMENT GROUP: Debility ETIOLOGIC DIAGNOSIS: Debility The comorbidities that impact the patients function and/or functional outcome by: complex co-morbidities, AF, presumed GIB, needs OAC restarted along with ASA, PAF s/p multiple ablations REHAB PLAN: The patient is being admitted to our comprehensive inpatient rehabilitation facility and can tolerate the intensity of service consisting of at least: 180 minutes of therapy a day, 5 out of 7 days a week Rehab treatment will consist of: PT OT will focus on regaining function in order to return back to independent living with partner while increasing stamina and preventing falls The patient/family has a good understanding of our discharge process and will benefit from an interdisciplinary inpatient rehabilitation program. The patient has potential to make improvement and is in need of at least two of the following multidisciplinary therapies including but not limited to physical, occupational, speech, and prosthetics and orthotics. Additionally the patient will need services from respiratory, nutritional services, wound care, psycholo gy, etc. (Customize this to each patient). Given the patients complex condition and risk of further medical complications, rehabilitation services cannot be safely or effectively provided at a lower level of care such as a half-way facility. BARRIERS TO DISCHARGE: Complex co-morbidities ESTIMATED LOS: 10 days DISPOSITION: Home RELEVANT CHANGES SINCE PREADMISSION SCREENING: I have compared the patients medical and functional status at the time of the preadmission screening and there are: no changes PROGNOSIS: Guarded REHABILITATION GOALS: 1. PT OT will focus on regaining function in order to return back to independent living with partner while increasing stamina and preventing falls All the above goals were reviewed with the patient and he/she is in agreement. By signing this document, I acknowledge that I have personally performed a full physical examination on this patient within 24 hours of admission to this inpatient rehabilitation facility and have determined the patient to be able to tolerate the above course of treatment at an intensive level for a reasonable period of time. I will be completing a detailed individualized Plan of Care for this patient by day #4 of the patients stay based upon the Preadmission Screen, the Post-Admission Evaluation, and the therapy evaluations. Admission Dx/Comorbidities: (1) Severe anemia Status: Acute ICD Codes: D64.9 - Anemia, unspecified (2) CAD (coronary artery disease) ICD Codes: I25.10 - Atherosclerotic heart disease of [place] coronary artery without angina pectoris (3) Atrial fibrillation ICD Codes: I48.91 - Unspecified atrial fibrillation (4) Dyspnea on minimal exertion Status: Acute ICD Codes: R06.09 - Other forms of dyspnea Assessment/Plan Assessment and Plan Assess & Plan/Chief Complaint Assessment: Debility Anemia s/p 3 units of blood in ICU with recent negative scopes holding ASA and OAC restarted Plavix PAF Angina CAD recent stent in vein graft CHF diastolic type CABG 2006 HTN hx HLP PVD Carotid stenosis s/p LCEA Pulmonary HTN upcoming heart cath in near future COPD O2 dependent CKD Hypothyroidism Plan: IRF protocol Monitor closely PT OT Home meds Hold OAC Hold ASA for now AYUSH SEXTON DO Jun 23, 2022 13:54
[~2022-06-23 14:05] MED LIST changes: +ALPRAZolam 0.25 MG (XANAX) TAB PO PRN; +BISACODYL 10 MG SUPP (DULCOLAX) PR PRN; +CALCIUM CARBONATE 500 MG (TUMS) TAB.CHEW PO PRN; +CYANOCOBALAMIN INJ 1000 MCG/ML IM NR; +CYANOCOBALAMIN INJ 1000 MCG/ML IM ONE; +DOCUSATE SODIUM 100 MG (COLACE) CAP PO PRN; +DOCUSATE SODIUM 100 MG (COLACE) CAP PO SCH; +FLEET ENEMA ADULT 1 EA BTL PR PRN; +IRON SUCROSE 200 MG/10 ML (VENOFER) VIAL IV SCH; +LACTULOSE SYRUP 10GM/15ML (ENULOSE) 30ML UDC PO PRN; +LEVO-55 PO; -LEVO500T81 PO; +LOPERAMIDE 2 MG (IMODIUM) TABLET PO PRN; +MELATONIN 3 MG TABLET PO PRN; +NYST1000 PO; +ONDANSETRON 4 MG (ZOFRAN) ORAL DISSOLVE TAB PO PRN; +POTA-177 PO; -POTA10TA37 PO; +SENNA W/DOCUSATE (SENOKOT S) TABLET PO SCH; +diphenhydrAMINE 25 MG TAB (BENADRYL) PO PRN; +guaiFENesin/CODEINE (ROBITUSSIN AC) 10ML UDC PO PRN; +polyethylene glycoL POWDER 17 GM (MIRALAX) PACK PO SCH
[2022-06-23 14:27] VITALS: BP 106/55
[2022-06-23] MEDS: IRON SUCROSE 200 MG/10 ML (VENOFER) VIAL IV SCH (15:55)
[2022-06-23] MEDS ORDERED: ALPRAZolam 0.25 MG (XANAX) TAB PO PRN (16:00)
[2022-06-23] MEDS ORDERED: ONDANSETRON 4 MG/2 ML (SDV) Z0FRAN IV PRN (16:00)
[2022-06-23] MEDS ORDERED: ANTACID SUSP 30 ML UDC (MYLANTA) PO PRN (16:00)
[2022-06-23] MEDS ORDERED: LACTULOSE SYRUP 10GM/15ML (ENULOSE) 30ML UDC PO PRN (16:00)
[2022-06-23] MEDS ORDERED: HYDROmorphone 2 MG/ML VIAL (DILAUDID) IV PRN (16:00)
[2022-06-23] MEDS ORDERED: MELATONIN 3 MG TABLET PO PRN (16:00)
[2022-06-23] MEDS ORDERED: NYSTATIN ORAL SUSP 5 ML UDC PO PRN (16:00)
[2022-06-23] MEDS ORDERED: NITROGLYCERIN 0.4 MG SL TABS BTL 25'S SL PRN (16:00)
[2022-06-23] MEDS ORDERED: RT-ALBUTEROL SULF 2.5 MG/3 ML PRE-MIX VIAL INH PRN (16:00)
[2022-06-23] MEDS ORDERED: diphenhydrAMINE 25 MG TAB (BENADRYL) PO PRN (16:00)
[2022-06-23] MEDS ORDERED: ACETAMINOPHEN 325 MG TABLET PO PRN (16:00)
[2022-06-23] MEDS ORDERED: diphenhydrAMINE 50 MG/ML INJ (BENADRYL) IVP PRN (16:00)
[2022-06-23] MEDS ORDERED: NALOXONE 0.4 MG/ML 1 ML (NARCAN) VIAL IV PRN (16:00)
[2022-06-23] MEDS ORDERED: CALCIUM CARBONATE 500 MG (TUMS) TAB.CHEW PO PRN (16:00)
[2022-06-23] MEDS ORDERED: polyethylene glycoL POWDER 17 GM (MIRALAX) PACK PO PRN (16:00)
[2022-06-23] MEDS ORDERED: ONDANSETRON 4 MG (ZOFRAN) ORAL DISSOLVE TAB PO PRN (16:00)
[2022-06-23] MEDS ORDERED: BISACODYL 10 MG SUPP (DULCOLAX) PR PRN (16:00)
[2022-06-23] MEDS ORDERED: MILK OF MAGNESIA 400 MG/5 ML 30 ML UDC PO PRN (16:00)
[2022-06-23 20:11] VITALS: BP 129/63
[2022-06-23] MEDS ORDERED: DOCUSATE SODIUM 100 MG (COLACE) CAP PO SCH (21:00)
[2022-06-23] MEDS: polyethylene glycoL POWDER 17 GM (MIRALAX) PACK PO SCH (21:25)
[2022-06-23] MEDS: SENNOSIDES 8.6 MG (SENOKOT) TAB PO SCH (21:25)
[2022-06-23] MEDS: MONTELUKAST 10 MG (SINGULAIR) TAB PO SCH (21:29)
[2022-06-23] MEDS: DRONEDARONE 400 MG TABLET PO SCH (21:29)
[2022-06-23] MEDS: DULoxetine 30 MG (CYMBALTA) CAP PO SCH (21:29)
[2022-06-23] MEDS: [UNRECOGNIZED DRUG - REMARK] PO SCH (21:29)
[2022-06-23] MEDS: DOCUSATE SODIUM 100 MG (COLACE) CAP PO SCH (21:29)
[2022-06-23] MEDS: SENNA W/DOCUSATE (SENOKOT S) TABLET PO SCH (21:30)
[2022-06-23] MEDS: ROSUVASTATIN 20 MG (CRESTOR) TABLET PO SCH (21:30)
[2022-06-24 05:18] LABS: BASOPHILS % (AUTO) 0 % (0-10); EOSINOPHILS # (AUTO) 0.2 10^3/uL (0.0-0.3); EOSINOPHILS % (AUTO) 5 % (0-10); HEMATOCRIT 24 % (35-52); HEMOGLOBIN 7.8 g/dL (11.5-16.0); LYMPHOCYTES # (AUTO) 0.8 10^3/uL (1.0-4.0); LYMPHOCYTES % (AUTO) 18 % (12-44); MEAN CORPUSCULAR HEMOGLOBIN 31 pg (25-34); MEAN CORPUSCULAR HGB CONC 32 g/dL (32-36); MEAN CORPUSCULAR VOLUME 96 fL (80-99); MEAN PLATELET VOLUME 9.5 fL (9.0-12.2); MONOCYTES # (AUTO) 0.6 10^3/uL (0.0-1.0); MONOCYTES % (AUTO) 12 % (0-12); NEUTROPHILS # (AUTO) 2.9 10^3/uL (1.8-7.8); NEUTROPHILS % (AUTO) 64 % (42-75); PLATELET COUNT 209 10^3/uL (130-400); WHITE BLOOD COUNT 4.5 10^3/uL (4.3-11.0)
[2022-06-24 05:27] LABS: ALBUMIN 3.2 GM/DL (3.2-4.5); POTASSIUM 3.3 MMOL/L (3.6-5.0)
[2022-06-24 05:28] LABS: CALCIUM 8.7 MG/DL (8.5-10.1)
[2022-06-24 05:29] LABS: TOTAL PROTEIN 5.4 GM/DL (6.4-8.2)
[2022-06-24 05:31] LABS: BILIRUBIN,TOTAL 0.4 MG/DL (0.1-1.0)
[2022-06-24 05:33] LABS: CREATININE SERUM 1.13 MG/DL (0.60-1.30)
[2022-06-24] MEDS ORDERED: KCL 20 MEQ TAB (K-DUR) PO SCH (06:00)
[2022-06-24] MEDS: KCL 10 MEQ TAB (MICRO K) PO SCH ×2 (06:29→08:33)
[2022-06-24] MEDS: CYANOCOBALAMIN 1,000 MCG (VITAMIN B-12) TABLET PO SCH (06:29)
[2022-06-24] MEDS: LEVOTHYROXINE 112 MCG (LEVOTHROID) TAB PO SCH (06:29)
[2022-06-24] MEDS: SENNOSIDES 8.6 MG (SENOKOT) TAB PO SCH ×2 (07:17→20:40)
[2022-06-24] MEDS: polyethylene glycoL POWDER 17 GM (MIRALAX) PACK PO SCH ×2 (07:17→20:40)
[2022-06-24 07:22] VITALS: BP 130/60
--- NOTE | 2022-06-24 07:35 | PM&R Progress Note ---
Subjective HPI/CC On Admission Date Seen by Provider: Jun 24, 2022 Time Seen by Provider: 12:00 Subjective/Events-last exam 06/24/2022: Patient doing well Moving to independent room Tolerating iron will get another dose tomorrow Vitamin B12 supplement maintained Check meds and labs Review of Systems General: Fatigue, Malaise Pulmonary: Dyspnea Objective Exam Vital Signs Vital Signs Date Time Temp Pulse Resp B/P (MAP) Pulse Ox O2 Delivery O2 Flow Rate FiO2 06/24/22 19:00 63 06/24/22 18:50 96 Nasal Cannula 2.00 06/24/22 07:22 36.4 18 130/60 (83) Capillary Refill : General Appearance: No Apparent Distress, WD/WN, Anxious, Chronically ill HEENT: PERRL/EOMI, Normal ENT Inspection, Pharynx Normal Neck: Full Range of Motion, Normal Inspection, Non Tender, Supple, Carotid Bruit Respiratory: Chest Non Tender, Lungs Clear, Normal Breath Sounds, No Accessory Muscle Use, No Respiratory Distress, Decreased Breath Sounds Cardiovascular: Regular Rate, Rhythm, No Edema, No Gallop, No JVD, No Murmur, Normal Peripheral Pulses Gastrointestinal: Normal Bowel Sounds, No Organomegaly, No Pulsatile Mass, Non Tender, Soft Back: Normal Inspection, No CVA Tenderness, No Vertebral Tenderness Extremity: Normal Capillary Refill, Normal Inspection, Normal Range of Motion, Non Tender, No Calf Tenderness, No Pedal Edema Neurologic/Psychiatric: Alert, Oriented x3, No Motor/Sensory Deficits, Normal Mood/Affect, Motor Weakness (generalized) Skin: Normal Color, Warm/Dry Lymphatic: No Adenopathy Results/Procedures Lab Laboratory Tests 06/24/22 04:53 Patient resulted labs reviewed. FIM Transfers Therapy Code Descriptions/Definitions Functional [place] Measure: 0=Not Assessed/NA 4=Minimal Assistance 1=Total Assistance 5=Supervision or Setup 2=Maximal Assistance 6=Modified [place] 3=Moderate Assistance 7=Complete IndependenceSCALE: Activities may be completed with or without assistive devices. 5-Imggkepexg-njzseuc completes the activity by him/herself with no assistance from a helper. 5-Set-up or Clean-up Assistance-helper sets up or cleans up; patient completes activity. [place] assists only prior to or following the activity. 4-Supervision or Touching Assistance-helper provides verbal cues and/or touching/steadying and/or contact guard assistance as patient completes activity. Assistance may be provided throughout the activity or intermittently. 3-Partial/Moderate Assistance-helper does LESS THAN HALF the effort. [place] lifts, holds or supports trunk or limbs, but provides less than half the effort. 2-Substantial/Maximal Assistance-helper does MORE THAN HALF the effort. [place] lifts or holds trunk or limbs and provides more than half the effort. 0-[id number]-syucfl does ALL the effort. Patient does none of the effort to complete the activity. Or, the assistance of 2 or more helpers is required for the patient to complete the activity. If activity was not attempted, code reason: 7-Patient Refused. 9-Not Applicable-not attempted and the patient did not perform the activity before the current illness, exacerbation or injury. 10-Not Attempted due to Environmental Limitations-(lack of equipment, weather restraints, etc.). 88-Not Attempted due to Medical Conditions or Safety Concerns. Assessment/Plan Assessment and Plan Assess & Plan/Chief Complaint Assessment: Debility Anemia s/p 3 units of blood in ICU with recent negative scopes holding ASA and OAC restarted Plavix PAF Angina CAD recent stent in vein graft CHF diastolic type CABG 2006 HTN hx HLP PVD Carotid stenosis s/p LCEA Pulmonary HTN upcoming heart cath in near future COPD O2 dependent CKD Hypothyroidism Acute hypokalemia Plan: IRF protocol Monitor closely PT OT Home meds Hold OAC Hold ASA for now 06/24/2022: IV iron infusions Supportive care (1) Severe anemia Status: Acute (2) CAD (coronary artery disease) (3) Atrial fibrillation (4) Dyspnea on minimal exertion Status: Acute AYUSH SEXTON DO Jun 24, 2022 07:35
--- NOTE | 2022-06-24 07:44 | Progress Note - Surgery ---
BRITTANIE HURTADO 06/24/22 0744: Subjective Date Seen by a Provider: Jun 24, 2022 Time Seen by a Provider: 07:39 Subjective/Events-last exam Patient resting comfortably watching tv this morning. States she feels better today and 'less drained". She has been up to go to the bathroom a few times si nce transferring to inpatient rehab floor. Denies any abdominal pain, nausea, vomiting, fever or chills at this time. Today Hb down from 7.9 yesterday to 7.8 today. Received B12 shot and iron yesterday. Objective Exam Vital Signs Date Time Temp Pulse Resp B/P (MAP) Pulse Ox O2 Delivery O2 Flow Rate FiO2 06/24/22 07:37 63 06/24/22 07: 36.4 71 18 130/60 (83) 98 Nasal Cannula 2.00 06/24/22 01:00 70 06/23/22 21:25 96 Nasal Cannula 2.00 06/23/22 20:11 36.7 66 20 129/63 (85) 96 Nasal Cannula 2.00 06/23/22 19:00 70 06/23/22 14:47 Nasal Cannula 2.00 06/23/22 14:27 36.8 70 18 106/55 (72) 97 Nasal Cannula 2.00 Capillary Refill : General Appearance: No Apparent Distress, WD/WN, Anxious, Chronically ill HEENT: PERRL/EOMI, Normal ENT Inspection, Pharynx Normal Neck: Full Range of Motion, Normal Inspection, Non Tender, Supple, Carotid Bruit Respiratory: Chest Non Tender, Lungs Clear, Normal Breath Sounds, No Accessory Muscle Use, No Respiratory Distress, Decreased Breath Sounds Cardiovascular: Regular Rate, Rhythm, No Edema, No Gallop, No JVD, No Murmur, Normal Peripheral Pulses Extremity: Normal Capillary Refill, Normal Inspection, Normal Range of Motion, Non Tender, No Calf Tenderness, No Pedal Edema Neurologic/Psychiatric: Alert, Oriented x3, No Motor/Sensory Deficits, Normal Mood/Affect, Motor Weakness (generalized) Skin: Normal Color, Warm/Dry Lymphatic: No Adenopathy Results Lab Laboratory Tests 06/24/22 04:53: White Blood Count 4.5, Red Blood Count 2.52L, Hemoglobin 7.8L, Hematocrit 24L, M kori Corpuscular Volume 96, Mean Corpuscular Hemoglobin 31, Mean Corpuscular Hemoglobin Concent 32, Red Cell Distribution Width 18.8H, Platelet Count 209, Mean Platelet Volume 9.5, Immature Granulocyte % (Auto) 1, Neutrophils (%) (Auto) 64, Lymphocytes (%) (Auto) 18, Monocytes (%) (Auto) 12, Eosinophils (%) (Auto) 5, Basophils (%) (Auto) 0, Neutrophils # (Auto) 2.9, Lymphocytes # (Auto) 0.8L, Monocytes # (Auto) 0.6, Eosinophils # (Auto) 0.2, Basophils # (Auto) 0.0, Immature Granulocyte # (Auto) 0.0, Sodium Level 141, Potassium Level 3.3L, Chloride Level 104, Carbon Dioxide Level 26, Anion Gap 11, Blood Urea Nitrogen 14, Creatinine 1.13, Estimat Glomerular Filtration Rate 51, BUN/Creatinine Ratio 12, Glucose Level 126H, Calcium Level 8.7, Corrected Calcium 9.3, Total Bilirubin 0.4, Aspartate Amino Transf (AST/SGOT) 19, Alanine Aminotransferase (ALT/SGPT) 11, Alkaline Phosphatase 80, Total Protein 5.4L, Albumin 3.2 Assessment/Plan Assessment/Plan Assessment/Plan Anemia Continue monitoring labs, abdominal checks, and transfuse if Hb below 7. Continue Plavix. Diet as tolerated. Continue Protonix. Clinical Quality Measures DVT/VTE Risk/Contraindication: Contraindications-Pharm: Other *list below* Other: YULISA Macias DO 06/24/22 1128: Subjective Subjective/Events-last exam No complaints. Hgb stable at 7.8. No blood per rectum. Denies n/v fever sweats chills shortness of breath or chest pain. Objective Exam General Appearance: No Apparent Distress, Chronically ill HEENT: PERRL/EOMI, Normal ENT Inspection Neck: Full Range of Motion, Non Tender Respiratory: Chest Non Tender, No Accessory Muscle Use, No Respiratory Distress Cardiovascular: Regular Rate, Rhythm, No JVD Gastrointestinal: non tender, soft Extremity: Non Tender, No Calf Tenderness Neurologic/Psychiatric: Alert, Oriented x3 Skin: Normal Color, Warm/Dry Lymphatic: No Adenopathy Assessment/Plan Assessment/Plan Assessment/Plan Hemoccult + stools Iron deficiency Anemia Afib CAD Continue monitoring labs, abdominal checks, and transfuse if Hb below 7. Continue Plavix. Diet as tolerated. Continue Protonix. [facility] would plan on capsule endoscopy for further evaluation which would be at another facility since we don't have that capability. Supervisory-Addendum Brief Verification & Attestation Participated in pt care: history, MDM, physical Personally performed: exam, history, MDM, supervision of care Care discussed with: Medical Student Procedures: n/a Results interpretation: Verified all documentation Verification and Attestation of Medical Student E/M Service A medical student performed and documented this service in my presence. I reviewed and verified all information documented by the medical student and made modifications to such information, when appropriate. I personally performed the physical exam and medical decision making. Yulisa Bedolla, Jun 24, 2022,11:28 BRITTANIE HURTADO Jun 24, 2022 07:44 YULISA BEDOLLA DO Jun 24, 2022 11:28
[2022-06-24] MEDS: ALLOPURINOL 300 MG (ZYLOPRIM) TAB PO SCH (08:33)
[2022-06-24] MEDS: ISOSORBIDE MONONITRATE 30 MG (IMDUR) TAB PO SCH (08:33)
[2022-06-24] MEDS: MAGNESIUM OXIDE (MAG-OX)400 MG TAB PO SCH (08:34)
[2022-06-24] MEDS: CLOPIDOGREL 75 MG (PLAVIX) TABLET PO SCH (08:34)
[2022-06-24] MEDS: DOCUSATE SODIUM 100 MG (COLACE) CAP PO SCH ×2 (08:34→20:44)
[2022-06-24] MEDS: VITAMIN D3 125 MCG (5,000 UNITS) CAPSULE PO SCH (08:34)
[2022-06-24] MEDS: SENNA W/DOCUSATE (SENOKOT S) TABLET PO SCH ×2 (08:34→20:44)
[2022-06-24] MEDS: PANTOPRAZOLE 40 MG (PROTONIX) TAB PO SCH (08:34)
[2022-06-24] MEDS: FUROSEMIDE 40 MG (LASIX) TAB PO SCH (08:34)
[2022-06-24] MEDS: DRONEDARONE 400 MG TABLET PO SCH ×2 (08:34→20:44)
[2022-06-24] MEDS: [UNRECOGNIZED DRUG - REMARK] PO SCH ×2 (08:35→20:43)
--- NOTE | 2022-06-24 12:42 | Progress Note - Cardiology ---
Cardiology SOAP Progress Note Subjective: No cp or palp or syncope No shortness of breath No swelling Gen weakness present Does not report n/v/d Objective: I&O/Vital Signs 06/24/22 06/24/22 06/24/22 06/24/22 01:00 07:22 07:37 09:00 Temp 36.4 Pulse 70 71 63 Resp 18 B/P (MAP) 130/60 (83) Pulse Ox 98 96 O2 Delivery Nasal Cannula Nasal Cannula O2 Flow Rate 2.00 2.00 06/24/22 09:16 Pulse Ox 96 O2 Delivery Nasal Cannula O2 Flow Rate 2.00 Weight (Pounds): 160 Weight (Ounces): 4.0 Weight (Calculated Kilograms): [id number] Constitutional: AAO x 3, well-developed, well-nourished Respiratory: other (fair to good, bilat air entry) Cardiovascular: regular rate-rhythm, systolic murmur (soft DEBORAH at card base) Gastrointestional: No tender; soft; No guarding, No rebound; audible bowel sounds Extremities: No clubbing, No cyanosis Neurologic/Psychiatric: other (moves all limbs equally) Skin: No rash on exposed areas, No ulcerations on exposed areas Results/Procedures: Labs Laboratory Tests 06/24/22 04:53: White Blood Count 4.5, Red Blood Count 2.52L, Hemoglobin 7.8L, Hematocrit 24L, Mean Corpuscular Volume 96, Mean Corpuscular Hemoglobin 31, Mean Corpuscular Hemoglobin Concent 32, Red Cell Distribution Width 18.8H, Platelet Count 209, Mean Platelet Volume 9.5, Immature Granulocyte % (Auto) 1, Neutrophils (%) (Auto) 64, Lymphocytes (%) (Auto) 18, Monocytes (%) (Auto) 12, Eosinophils (%) (Auto) 5, Basophils (%) (Auto) 0, Neutrophils # (Auto) 2.9, Lymphocytes # (Auto) 0.8L, Monocytes # (Auto) 0.6, Eosinophils # (Auto) 0.2, Basophils # (Auto) 0.0, Immature Granulocyte # (Auto) 0.0, Sodium Level 141, Potassium Level 3.3L, Chloride Level 104, Carbon Dioxide Level 26, Anion Gap 11, Blood Urea Nitrogen 14, Creatinine 1.13, Estimat Glomerular Filtration Rate 51, BUN/Creatinine Ratio 12, Glucose Level 126H, Calcium Level 8.7, Corrected Calcium 9.3, Total Bilirubin 0.4, Aspartate Amino Transf (AST/SGOT) 19, Alanine Aminotransferase (ALT/SGPT) 11, Alkaline Phosphatase 80, Total Protein 5.4L, Albumin 3.2 Laboratory Tests 06/24/22 04:53 A/P: Assessment: Anemia due to occult GI bleed - H/H improved following transfusions - management per [facility] Paroxysmal atrial fibrillation/flutter, - maintaining sinus. Chronically on Multaq - not suitable for OAC at this time due to GI bleed requiring transfusions Coronary artery disease, history of CABG 3 done in 2006. - Cardiac catheterization was done in February 2014 showing patent LUNA to the LAD, 60 percent stenosis at the distal portion of the LUNA. The proximal LAD has 90 percent stenosis with good flow supply to the LAD system. The vein graft to the obtuse marginal branch is patent with excellent flow distally and the vein graft to the right coronary artery is patent with excellent flow distally. Normal left ventricular size and systolic function. - Cardiac catheterization done January 02, 2021 showing Patent LUNA to LAd, VG to the RCA. VG to the obtuse marginal branch has mod stenosis at an area followed by aneurysmal dilatation. Occluded prox circumflex artery corrected by the vein graft. Occluded prox RCA corrected by the VG. Right PDA was small vessel disease distally. Severe mid LAd stenosis corrected with the LUNA with dual supply to the LAD territory. - Cardiac catheterization done on June 06, 2022 with stenting of the vein graft to the circumflex artery using skypoint stent 3.5 x 23 mm, patent LUNA to LAD and vein graft to the right coronary artery with severe [place] coronary artery disease, small vessel disease. H/o ILR implantation that has been followed by Dr. Miller; it was extracted by Dr. Bedolla Hypertension Hyperlipidemia History of carotid stenosis - Left carotid endarterectomy. Last ultrasound report showed moderate disease in the right carotid artery, more significant disease on the left side. Followed and managed by [facility], Bobby Rodney History of dizziness and lightheadedness. Reporting improvement. Continue to monitor. COPD and Pulm Htn - managment per Dr. Menjivar Hypothyroidism followed and managed by primary care physician. Chronic renal insufficiency - patient is following with Dr. Erica Meza Plan: * Complex management due to multiple comorbidities * Continue dronedarone to prevent AF * Resume OAC ERLINDA after full eval and treatment GI bleed that we recommend to be done ERLINDA * Continue Plavix because of coronary stenting * Monitor labs closely TRACY RAINES MD [facility] Jun 24, 2022 12:42
[2022-06-24] MEDS: ACETAMINOPHEN 325 MG TABLET PO PRN (18:39)
[2022-06-24 20:40] VITALS: BP 100/55
[2022-06-24] MEDS: MONTELUKAST 10 MG (SINGULAIR) TAB PO SCH (20:44)
[2022-06-24] MEDS: DULoxetine 30 MG (CYMBALTA) CAP PO SCH (20:44)
[2022-06-24] MEDS: ROSUVASTATIN 20 MG (CRESTOR) TABLET PO SCH (20:44)
[2022-06-25] MEDS: ACETAMINOPHEN 325 MG TABLET PO PRN ×2 (02:22→07:43)
--- NOTE | 2022-06-25 05:51 | PM&R Progress Note ---
Subjective HPI/CC On Admission Date Seen by Provider: Jun 25, 2022 Time Seen by Provider: 09:30 Subjective/Events-last exam 06/25/2022: Venofer today Capsule endoscopy will be done at [place] Monitoring closely Breathing well 06/24/2022: Patient doing well Moving to independent room Tolerating iron will get another dose tomorrow Vitamin B12 supplement maintained Check meds and labs Review of Systems General: Fatigue, Malaise Objective Exam Vital Signs Vital Signs Date Time Temp Pulse Resp B/P (MAP) Pulse Ox O2 Delivery O2 Flow Rate FiO2 06/26/22 01:00 68 06/25/22 21:35 Nasal Cannula 2.00 06/25/22 21:18 95 06/25/22 20:44 36.8 20 117/55 (75) Capillary Refill : General Appearance: No Apparent Distress, WD/WN, Anxious, Chronically ill HEENT: PERRL/EOMI, Normal ENT Inspection, Pharynx Normal Neck: Full Range of Motion, Normal Inspection, Non Tender, Supple, Carotid Bruit Respiratory: Chest Non Tender, Lungs Clear, Normal Breath Sounds, No Accessory Muscle Use, No Respiratory Distress, Decreased Breath Sounds Cardiovascular: Regular Rate, Rhythm, No Edema, No Gallop, No JVD, No Murmur, Normal Peripheral Pulses Gastrointestinal: Normal Bowel Sounds, No Organomegaly, No Pulsatile Mass, Non Tender, Soft Back: Normal Inspection, No CVA Tenderness, No Vertebral Tenderness Extremity: Normal Capillary Refill, Normal Inspection, Normal Range of Motion, Non Tender, No Calf Tenderness, No Pedal Edema Neurologic/Psychiatric: Alert, Oriented x3, No Motor/Sensory Deficits, Normal Mood/Affect, Motor Weakness (generalized) Skin: Normal Color, Warm/Dry Lymphatic: No Adenopathy Results/Procedures Lab Laboratory Tests 06/25/22 07:09 Patient resulted labs reviewed. FIM Transfers Therapy Code Descriptions/Definitions Functional [place] Measure: 0=Not Assessed/NA 4=Minimal Assistance 1=Total Assistance 5=Supervision or Setup 2=Maximal Assistance 6=Modified [place] 3=Moderate Assistance 7=Complete IndependenceSCALE: Activities may be completed with or without assistive devices. 7-Odgixhszfm-tnjygdt completes the activity by him/herself with no assistance from a helper. 5-Set-up or Clean-up Assistance-helper sets up or cleans up; patient completes activity. [place] assists only prior to or following the activity. 4-Supervision or Touching Assistance-helper provides verbal cues and/or touching/steadying and/or contact guard assistance as patient completes activity. Assistance may be provided throughout the activity or intermittently. 3-Partial/Moderate Assistance-helper does LESS THAN HALF the effort. [place] lifts, holds or supports trunk or limbs, but provides less than half the effort. 2-Substantial/Maximal Assistance-helper does MORE THAN HALF the effort. [place] lifts or holds trunk or limbs and provides more than half the effort. 5-Trvhvibzx-hxduyr does ALL the effort. Patient does none of the effort to complete the activity. Or, the assistance of 2 or more helpers is required for the patient to complete the activity. If activity was not attempted, code reason: 7-Patient Refused. 9-Not Applicable-not attempted and the patient did not perform the activity before the current illness, exacerbation or injury. 10-Not Attempted due to Environmental Limitations-(lack of equipment, weather restraints, etc.). 88-Not Attempted due to Medical Conditions or Safety Concerns. Assessment/Plan Assessment and Plan Assess & Plan/Chief Complaint Assessment: Debility Anemia s/p 3 units of blood in ICU with recent negative scopes holding ASA and OAC restarted Plavix PAF Angina CAD recent stent in vein graft CHF diastolic type CABG 2006 HTN hx HLP PVD Carotid stenosis s/p LCEA Pulmonary HTN upcoming heart cath in near future COPD O2 dependent CKD Hypothyroidism Acute hypokalemia Plan: IRF protocol Monitor closely PT OT Home meds Hold OAC Hold ASA for now 06/24/2022: IV iron infusions Supportive care 06/25/2022: Capsule endoscopy Monitor closely (1) Severe anemia Status: Acute (2) CAD (coronary artery disease) (3) Atrial fibrillation (4) Dyspnea on minimal exertion Status: Acute AYUSH SEXTON DO Jun 25, 2022 05:51
[2022-06-25] MEDS: CYANOCOBALAMIN 1,000 MCG (VITAMIN B-12) TABLET PO SCH (06:13)
[2022-06-25] MEDS: LEVOTHYROXINE 112 MCG (LEVOTHROID) TAB PO SCH (06:13)
[2022-06-25] MEDS: KCL 10 MEQ TAB (MICRO K) PO SCH ×2 (06:13)
[2022-06-25 07:12] LABS: HEMOGLOBIN 8.2 g/dL (11.5-16.0)
[2022-06-25 07:28] LABS: POTASSIUM 3.8 MMOL/L (3.6-5.0)
[2022-06-25 07:29] LABS: CALCIUM 9.1 MG/DL (8.5-10.1)
[2022-06-25 07:33] LABS: CREATININE SERUM 1.3 MG/DL (0.60-1.30)
[2022-06-25 07:36] LABS: MAGNESIUM 1.8 MG/DL (1.6-2.4)
[2022-06-25 07:47] VITALS: BP 133/62
[2022-06-25] MEDS: MAGNESIUM OXIDE (MAG-OX)400 MG TAB PO SCH (08:31)
[2022-06-25] MEDS: IRON SUCROSE 200 MG/10 ML (VENOFER) VIAL IV SCH (08:31)
[2022-06-25] MEDS: ISOSORBIDE MONONITRATE 30 MG (IMDUR) TAB PO SCH (08:32)
[2022-06-25] MEDS: [UNRECOGNIZED DRUG - REMARK] PO SCH ×2 (08:32→21:41)
[2022-06-25] MEDS: SENNOSIDES 8.6 MG (SENOKOT) TAB PO SCH ×2 (08:33→21:45)
[2022-06-25] MEDS: DRONEDARONE 400 MG TABLET PO SCH ×2 (08:33→21:41)
[2022-06-25] MEDS: ALLOPURINOL 300 MG (ZYLOPRIM) TAB PO SCH (08:33)
[2022-06-25] MEDS: DOCUSATE SODIUM 100 MG (COLACE) CAP PO SCH ×2 (08:33→21:45)
[2022-06-25] MEDS: PANTOPRAZOLE 40 MG (PROTONIX) TAB PO SCH (08:33)
[2022-06-25] MEDS: SENNA W/DOCUSATE (SENOKOT S) TABLET PO SCH ×2 (08:33→21:45)
[2022-06-25] MEDS: VITAMIN D3 125 MCG (5,000 UNITS) CAPSULE PO SCH (08:33)
[2022-06-25] MEDS: CLOPIDOGREL 75 MG (PLAVIX) TABLET PO SCH (08:33)
[2022-06-25] MEDS: FUROSEMIDE 40 MG (LASIX) TAB PO SCH (08:34)
--- NOTE | 2022-06-25 09:07 | Progress Note - Surgery ---
DELMI HUTCHINSON 06/25/22 0906: Subjective Date Seen by a Provider: Jun 25, 2022 Time Seen by a Provider: 09:03 Subjective/Events-last exam Pt resting comfortably in chair. States she is feeling better. Denies any abdominal pain, nausea, vomiting, fever or chills at this time. She B12 shot and iron on Saturday. Today Hb down from 7.9 yesterday to 7.8 today. She is hemoccult positive today. Review of Systems General: No Chills, No Night Sweats; Fatigue (improved) HEENT: No Head Aches, No Visual Changes Pulmonary: No Dyspnea, No Cough Cardiovascular: No: Chest Pain Gastrointestinal: Other (hemoccult positive ); No: Nausea, Vomiting, Abdominal Pain Genitourinary: No Retention Objective Exam Vital Signs Date Time Temp Pulse Resp B/P (MAP) Pulse Ox O2 Delivery O2 Flow Rate FiO2 06/25/22 07:47 35.8 70 18 133/62 (85) 100 Nasal Cannula 2.00 06/25/22 07:02 60 06/25/22 01:00 64 06/24/22 21:00 Nasal Cannula 2.00 06/24/22 20:40 36.5 63 20 100/55 (70) 100 Nasal Cannula 2.00 06/24/22 19:00 63 06/24/22 18:50 96 Nasal Cannula 2.00 06/24/22 12:45 69 06/24/22 09:16 96 Nasal Cannula 2.00 Capillary Refill : General Appearance: No Apparent Distress, Chronically ill HEENT: PERRL/EOMI, Pharynx Normal Neck: Non Tender, Supple Respiratory: Lungs Clear, Normal Breath Sounds, No Accessory Muscle Use, No Respiratory Distress Cardiovascular: Regular Rate, Rhythm, No Murmur Peripheral Pulses: 2+ Radial Pulses (R), 2+ Radial Pulses (L) Gastrointestinal: normal bowel sounds, non tender, soft Extremity: No Calf Tenderness, No Pedal Edema Neurologic/Psychiatric: Alert, Oriented x3, Normal Mood/Affect, Motor Weakness (generalized) Skin: Normal Color, Warm/Dry Lymphatic: No Adenopathy (of supraclavicular or axillary LNs) Results Lab Laboratory Tests 06/25/22 07:09: Hemoglobin 8.2L, Hematocrit 26L, Sodium Level 144, Potassium Level 3.8, Chloride Level 104, Carbon Dioxide Level 29, Anion Gap 11, Blood Urea Nitrogen 13, Creatinine 1.30, Estimat Glomerular Filtration Rate 43, BUN/Creatinine Ratio 10, Glucose Level 99, Calcium Level 9.1, Magnesium Level 1.8 Assessment/Plan Assessment/Plan Assessment/Plan Hemoccult + stools Iron deficiency Anemia Afib CAD Continue monitoring labs, abdominal checks, and transfuse if Hb below 7. Continu e plavix and aspirin. Diet tolerated, continue protonix. Discussed plan of capsule endoscopy evaluation which would be at another facility since we don't have that capability. If this study is inconclusive may do a repeat EGD and colonoscopy. Pt agrees with plan. Clinical Quality Measures DVT/VTE Risk/Contraindication: Contraindications-Pharm: Other *list below* Other: YULISA Macias DO 06/25/222023: Subjective Subjective/Events-last exam Patient sitting in chair. She is not having any abdominal pain. Denies any b lood in the stools. She denies any nausea vomiting fever sweats chills shortness of breath or chest pain. Patient hemoglobin 8.2 from 7.9 yesterday. Objective Exam General Appearance: No Apparent Distress, Chronically ill HEENT: PERRL/EOMI, Normal ENT Inspection Neck: Non Tender, Supple Respiratory: Chest Non Tender, No Accessory Muscle Use, No Respiratory Distress Cardiovascular: Regular Rate, Rhythm, No JVD Gastrointestinal: non tender, soft Extremity: Non Tender, No Calf Tenderness Neurologic/Psychiatric: Alert, Oriented x3, Normal Mood/Affect Skin: Normal Color, Warm/Dry Lymphatic: No Adenopathy (of supraclavicular or axillary LNs) Assessment/Plan Assessment/Plan Assessment/Plan Hemoccult + stools Iron deficiency Anemia Afib CAD Continue monitoring labs, and transfuse if Hb below 7. Continue plavix and aspirin. Diet as tolerated, continue protonix. Discussed capsule endoscopy evaluation which would be at another facility since we don't have that capabilit y. If this study is inconclusive may do a repeat EGD and colonoscop which she just recently had. Pt agrees and understands plan. Will sign off, call if needed. Supervisory-Addendum Brief Verification & Attestation Participated in pt care: history, MDM, physical Personally performed: exam, history, MDM, supervision of care Care discussed with: Medical Student Procedures: n/a Results interpretation: Verified all documentation Verification and Attestation of Medical Student E/M Service A medical student performed and documented this service in my presence. I reviewed and verified all information documented by the medical student and made modifications to such information, when appropriate. I personally performed the physical exam and medical decision making. Yulisa Bedolla, Jun 25, 2022,20:24 DELMI HUTCHINSON Jun 25, 2022 09:06 YULISA BEDOLLA DO Jun 25, 2022 20:24
--- NOTE | 2022-06-25 09:08 | Cardiology Progress Note ---
Subjective Date Seen by Provider: Jun 25, 2022 Time Seen by Provider: 08:05 Subjective/Events-last exam Patient is sitting up in chair, no new complaints. Denies any chest pain or dyspnea. Objective-Cardiology Exam Last Set of Vital Signs Vital Signs 06/25/22 06/25/22 07:47 09:00 Temp 35.8 Pulse 70 Resp 18 B/P (MAP) 133/62 (85) Pulse Ox 100 O2 Delivery Nasal Cannula O2 Flow Rate 2.00 General: Alert, Oriented X3 HEENT: Atraumatic Neck: Supple Lungs: Clear to Auscultation, Normal Air Movement Heart: Regular Rate, Normal S1, Normal S2 Abdomen: Normal Bowel Sounds, Soft Skin: No Rashes, No Significant Lesion Neuro: Normal Speech Psych/Mental Status: Mental Status NL, Mood NL Results Lab Laboratory Tests 06/25/22 07:09 A/P-Cardiology Admission Diagnosis GI bleed CAD CHF PAF Assessment/Plan Anemia, most probably GI loss on top of anemia of chronic disease. s/p transfusion. H/H stable, continue to monitor Dr. Bedolla following, patient will need to have capsule endoscopy as outpatient. Will continue to hold Xarelto at this time. Chest pain, resembling angina, improved after blood transfusion. Paroxysmal atrial fibrillation/flutter, Patient was treated with amiodarone in the past and it was stopped due to the underlying lung disease and shortness of breath, patient is oxygen dependent Treated with Multaq and it was stopped due to the congestive heart failure She was intolerant to higher dose of beta-blockers due to bradycardia and syncope Patient has failed attempt for cardioversion on October 06, 2021, referred to Dr. Miller at , underwent ablation in October 2021. Has occasional breakthrough episodes of afib. Maintained on Multaq. NIKKI was done on October 06, 2021 showing dilated left atrium and left atrial appendage with no clot or thrombus, normal LV size, EF 60%, mild MR, aortic valve sclerosis with no stenosis. Failed attempt for cardioversion Coronary artery disease, history of CABG 3 done in 2006. Cardiac catheterization was done in February 2014 showing patent LUNA to the LAD, 60 percent stenosis at the distal portion of the LUNA. The proximal LAD has 90 perc ent stenosis with good flow supply to the LAD system. The vein graft to the obtuse marginal branch is patent with excellent flow distally and the vein graft to the right coronary artery is patent with excellent flow distally. Normal left ventricular size and systolic function. Cardiac catheterization done January 02, 2021 showing Patent LUNA to LAd, VG to the RCA. VG to the obtuse marginal branch has mod stenosis at an area followed by aneurysmal dilatation. Occluded prox circumflex artery corrected by the vein graft. Occluded prox RCA corrected by the VG. Right PDA was small vessel disease distally. Severe mid LAd stenosis corrected with the LUNA with dual supply to the LAD territory. Cardiac catheterization done on June 06, 2022 with stenting of the vein graft to the circumflex artery using skypoint stent 3.5 x 23 mm, patent LUNA to LAD and vein graft to the right coronary artery with severe [place] coronary artery disease, small vessel disease. Plavix restarted, will restart ASA. History of frequent premature ventricular contractions. Patient has episodes of frequent paroxysmal atrial tachycardia with wide-complex tachycardia, sees Dr. Miller at [facility]. She is status post Linq implantation that has been f ollowed by Dr. Miller. Hypertension, controlled. Continue to monitor blood pressure Hyperlipidemia, continue to monitor. History of carotid stenosis. Left carotid endarterectomy. Last ultrasound report showed moderate disease in the right carotid artery, more significant disease on the left side. Followed and managed by heart and vascular care. Continue to monitor. History of dizziness and lightheadedness. Reporting improvement. Continue to monitor. COPD, managment per Dr. Menjivar Pulmonary hypertension. Dr. Menjivar recommending RHC, planning for LHC and RHC next month. History of renal failure Hypothyroidism followed and managed by primary care physician. Chronic renal insufficiency, patient is following with Dr. Erica Meza Supervisory-Addendum Brief Supervisory Addendum Participated in pt care: history, MDM, physical Personally performed: exam, history, MDM Care discussed with: MARTINE Results interpretation: Verified all documentation Notes: Patient was seen and evaluated with Beata, examination performed, management plan was discussed, agree with the current scribed note, I made few changes to the note using Italic font Patient was seen at bedside sitting comfortably Feeling better Aspirin was restarted Monitor H&H BEATA PRATER Jun 25, 2022 09:08 DARSHAN SEGUNDO MD Jun 25, 2022 12:58
--- NOTE | 2022-06-25 09:21 | Occupational Therapy Eval ---
OT Evaluation-General/PLF Medical Diagnosis Admission Date Jun 23, 2022 at 14:10 Medical Diagnosis: GI bleed Onset Date: Jun 20, 2022 Therapy Diagnosis Therapy Diagnosis: decreased activity tolerance. Height/Weight Height (Feet): 5 Height (Inches): 4.00 Weight (Pounds): 160 Weight (Ounces): 4.0 Precautions Precautions/Isolations: Standard Precautions Referral Physician: Franklyn Referral Reason: Evaluation/Treatment Medical History Pertinent Medical History: Back Injury, CABG, COPD, CVA Additional Medical History CAD, CKD, anemia, COPD, afib, neuropathy, renal failure, arthritis, anxiety/depression, r hip orthopedic Current History ED with SOB and fatigue, heat cath 06/07 with 2 stents. Transfer to ARU 06/23/22 Social History Home: Single Level Current Living Status: Spouse Entry Into Home: Stairs With Railing Steps Into Home: 3 ADL-Prior Level of Function SCALE: Activities may be completed with or without assistive devices. 4-Cqlkculqqg-bzraisn completes the activity by him/herself with no assistance from a helper. 5-Set-up or Clean-up Assistance-helper sets up or cleans up; patient completes activity. [place] assists only prior to or following the activity. 4-Supervision or Touching Assistance-helper provides verbal cues and/or touching/steadying and/or contact guard assistance as patient completes activity. Assistance may be provided throughout the activity or intermittently. 3-Partial/Moderate Assistance-helper does LESS THAN HALF the effort. [place] lifts, holds or supports trunk or limbs, but provides less than half the effort. 2-Substantial/Maximal Assistance-helper does MORE THAN HALF the effort. [place] lifts or holds trunk or limbs and provides more than half the effort. 0-Phnluuncj-heznco does ALL the effort. Patient does none of the effort to complete the activity. Or, the assistance of 2 or more helpers is required for the patient to complete the activity. If activity was not attempted, code reason: 7-Patient Refused. 9-Not Applicable-not attempted and the patient did not perform the activity before the current illness, exacerbation or injury. 10-Not Attempted due to Environmental Limitations-(lack of equipment, weather restraints, etc.). 88-Not Attempted due to Medical Conditions or Safety Concerns. ADL PLOF Comments Pt initially reports IND with ADLs and functional mobility, no AD. She was using a walker for energy conservation right before she came to the hospital. She has a tub/shower with SC and GBs. She rarely wears pants, opting for veneer puller gowns, slip on shoes and underwear, reports IND with all. Her assists with cooking/cleaning/shopping, she wears O2 at baseline. She has a button hook if she wears fancier clothes. With further discussion, pt revealed her is present and provides hernández pervision throughout ADLs, assists pt with washing her back, donning shirt/pants as needed. Self Care: Independent Functional Cognition: Independent DME/Equipment: Bath Chair, Grab Bars, Tall Toilet, Tub/Shower DME/Equipment Comments Pt owns a walker and a cane. OT Current Status Subjective Pt in recliner, son present at start of tx. Mental Status/Objective Patient Orientation: Person, Place, Time, Situation Attachments: Oxygen (2L) Current Hand Dominance: Right Upper Extremity ROM WFL Upper Extremity Coordination slightly decreased R hand due to decreased sensation Upper Extremity Sensation decreased sensation reported R hand due to prior CVA Upper Extremity Strength grossly 3+/5 ADL-Treatment Eating (QC): 6 (Per pt report) Oral Hygiene (QC): 6 Shower/Bathe Self (QC): 5 (set up only to cover IV site.) Upper Body Dressing (QC): 6 Lower Body Dressing (QC): 6 On/Off Footwear (QC): 6 (slip on shoes.) Toileting Hygiene (QC): 6 Other Treatments Pt in recliner, used FWW in room to gather clothes, then into bathroom, pt able to manage O2 line with 1 VC. Pt gathered ADL supplies in bathroom, bending over and grasping bag on the floor. She doffed clothes, then used GBs to step over tub ledge in order to simulate home environment, no LOB or concerns noted. Pt completed shower, using LH sponge on back and LEs as she would at home. Pt dried off, donned clothing and completed oral care/grooming at sink independently. Pt took rest breaks as needed due to SOB, pt indicates this is not new to her and she wears O2 at home. Pt able to safely manage O2 on her way [facility] with FWW, independently. Post tx, pt in recliner, call light in reach and all needs met. Education OT Patient Education: Correct positioning, Energy conservation, Modified ADL techniques, Progress toward Goal/Update tx plan, Purpose of tx/functional activities, Rehab process Teaching Recipient: Patient Teaching Methods: Discussion Response to Teaching: Verbalize Understanding OT Head Stock Transfer Clerk Goals Usp Goals Time Frame: Jul 13, 2022 Eating (QC): 6 Oral Hygiene (QC): 6 Toileting Hygiene (QC): 6 Shower/Bathe Self (QC): 6 Upper Body Dressing (QC): 6 Lower Body Dressing (QC): 6 On/Off Footwear (QC): 6 Additional Goals: 1-Demonstrate ADL Tasks, 2-Verbalize Understanding, 3- ImproveStrength/Yaima 1=Demonstrate adherence to instructed precautions during ADL tasks. 2=Patient will verbalize/demonstrate understanding of assistive devices/modifications for ADL. 3=Patient will improve strength/tolerance for activity to enable patient to perform ADL's. OT Education/Plan Problem List/Assessment Assessment: Decreased Activ Tolerance, Decreased UE Strength, Impaired I ADL's Pt is currently at [facility] with all ADLS, independent to gather clothing/ADL items and she was able to step in/out of bathtub using GBs. She lives at home with her spouse who is able to assist with I/ADLs if/when needed. Even though pt is independent and at OF, per physician and rehab plan, pt is currently on ARU for skilled therapy prior to returning home at discharge, thus with continue receiving OT services. Discharge Recommendations Plan/Recommendations: Continue POC Comment no further AE/DME recommendations at this time. Pt has all required equipment at home including GBs in tub, SC, tall toilet, yacht builder, walker, cane Treatment Plan/Plan of Care Patient would benefit from OT for education, treatment and training to promote independence in ADL's, mobility, safety and/or upper extremity function for ADL's. Plan of Care: ADL Retraining, Functional Mobility, Group Exercise/Act as Ind, UE Funct Exercise/Act Treatment Duration: Jul 13, 2022 Frequency: At least 5 of 7 days/Wk (IRF) Estimated Hrs Per Day: 1.5 hours per day Agreement: Yes Rehab Potential: Good Time/GCodes Start Time: 08:50 Stop Time: 10:00 Total Time Billed (hr/min): 70 Billed Treatment Time 1, EVL (10'), ADL 4 (60') MOHAMUD FALL OT Jun 25, 2022 09:21
[2022-06-25] MEDS: polyethylene glycoL POWDER 17 GM (MIRALAX) PACK PO SCH ×2 (10:10→21:45)
[2022-06-25] MEDS: ASPIRIN E.C. 81 MG (ECOTRIN) TAB PO SCH (10:21)
--- NOTE | 2022-06-25 11:50 | Physical Therapy Progress Note ---
Therapy Progress Note Patient asked treating PT if she could be up ad [place]. PT discussed this with myself. Reviewed patients current function, PT evaluation, OT evaluation and nursing assessment. Patient scored 20 on the most recent Angel Fall Scale with the 20 coming from patient having a hep loc. Patient scored a 27/28 on the Tinetti balance and gait test with PT. Discussed with RNMacario and patient will be up ad [place] at this time with ongoing assessment, evaluation and observation of patients gait, balance and safety during functional activities. If there are any changes in the patients current functional level, gait of balance observations, the up ad [place] status will be revoked until patient can be appropriately reassessed. RON STOLL PT Jun 25, 2022 11:50
--- NOTE | 2022-06-25 11:55 | Physical Therapy Evaluation ---
PT Evaluation-General Medical Diagnosis Admission Date Jun 23, 2022 at 14:10 Medical Diagnosis: GI bleed Onset Date: Jun 20, 2022 Therapy Diagnosis Therapy Diagnosis: impaired, strength, endurance Height/Weight Height (Feet): 5 Height (Inches): 4.00 Weight (Pounds): 160 Weight (Ounces): 4.0 Precautions Precautions/Isolations: Standard Precautions Referral Physician: Melonie Estes DO Reason for Referral: Evaluation/Treatment Medical History Pertinent Medical History: Back Injury, CABG, COPD, CVA Reviewed History: Yes Social History Home: Single Level Current Living Status: Spouse Entry Into Home: Stairs With Railing PT Steps Into Home: 3 Prior Prior Level of Function SCALE: Activities may be completed with or without assistive devices. 9-Ohuigjjizx-imdihjv completes the activity by him/herself with no assistance from a helper. 5-Set-up or Clean-up Assistance-helper sets up or cleans up; patient completes activity. [place] assists only prior to or following the activity. 4-Supervision or Touching Assistance-helper provides verbal cues and/or touching/steadying and/or contact guard assistance as patient completes activity. Assistance may be provided throughout the activity or intermittently. 3-Partial/Moderate Assistance-helper does LESS THAN HALF the effort. [place] lifts, holds or supports trunk or limbs, but provides less than half the effort. 2-Substantial/Maximal Assistance-helper does MORE THAN HALF the effort. [place] lifts or holds trunk or limbs and provides more than half the effort. 7-Twnbiqrgs-tmzdxr does ALL the effort. Patient does none of the effort to complete the activity. Or, the assistance of 2 or more helpers is required for the patient to complete the activity. If activity was not attempted, code reason: 7-Patient Refused. 9-Not Applicable-not attempted and the patient did not perform the activity before the current illness, exacerbation or injury. 10-Not Attempted due to Environmental Limitations-(lack of equipment, weather restraints, etc.). 88-Not Attempted due to Medical Conditions or Safety Concerns. Bed Mobility: 6 Transfers (B,C,W/C): 6 Gait: 6 Stairs: 6 Indoor Mobility (Ambulation): Independent Stairs: Independent PT Evaluation-Current Subjective Patient in recliner pre tx, agrees to PT, has no complaints of pain at rest. Pt/Family Goals to be independent at home Objective Patient Orientation: Person, Place, Situation Attachments: Oxygen ROM/Strength ROM Lower Extremities WNL Strength Lower Extremities LLE (hip flexion 4+/5, knee flexion 5/5, knee extension 5/5, dorsiflexion 5/5), RLE (hip flexion 4+/5, knee flexion 4+/5, knee extension 4+/5, dorsiflexion 4+/5) Sensory Vision: Wears Glasses Hearing: Functional Hand Dominance: Right Sensation Right Lower Extremit: Impaired (patient seemed to have some decreased sensation in right lower leg.) Sensation Left Lower Extremity: Intact Transfers Roll Left & Right (QC): 6 Sit to Lying (QC): 6 Lying to Sitting/Side of Bed(Q: 6 Sit to Stand (QC): 6 Chair/Jnu-pt-Nxpne Xfer(QC): 6 Toilet Transfer (QC): 6 Car Transfer (QC): 6 Patient performed rolling and supine <-> sit with independence, sit <-> stand and transfers independent, car transfer independent. Gait Does the Patient Walk?: Yes Mode of Locomotion: Walk Walk 10 feet (QC): 6 Walk 50 ft with 2 Turns(QC): 6 Walk 150 ft (QC): 6 Walking 10ft/uneven surface-QC: 6 Distance: 150'x3 Gait Assistive Device: None Comments/Gait Description Patient can ambulate 150' without an assistive device with independence (including 50' with at least 2 turns of 90 degrees and 10' over an uneven surface), she does get a little SOB after ambulating 150' and needs a rest break to recover. Wheelchair Training Wheel 50 ft with 2 turns (QC): 9 Wheel 150 ft (QC): 9 Stairs #of Steps: 4 1 Step (curb) (QC): 4 4 Steps (QC): 4 12 Steps (QC): 88 Patient can go up and down 4 steps using 2 handrails with SBA, rest afterward due to fatigue Balance Sitting Static: Normal Sitting Dynamic: Normal Standing Static: Normal Standing Dynamic: Normal Picking up an Object (QC): 4 (SBA, has difficulty reaching all the way to the floor, would probably perform better with a acting instructor) Special Test Comments Anametti 27/ Treatment NuStep level 5 for 15 min Assessment/Needs Patient has impaired strength and endurance but is independent with all mobility except for stairs and picking up an object from the floor. Rehab Potential: Fair PT Waterworks Chief Engineer Goals Shelter Goals PT Waterworks Chief Engineer Goals Time Frame: Jul 16, 2022 Roll Left & Right (QC): 6 Sit to Lying (QC): 6 Lying-Sitting on Side/Bed(QC): 6 Sit to Stand (QC): 6 Chair/Zsf-mp-Wyfty Xfer(QC): 6 Toilet Transfer (QC): 6 Car Transfer (QC): 6 Does the Patient Walk: Yes Walk 10 feet (QC): 6 Walk 50ft with 2 Turns (QC): 6 Walk 150 ft (QC): 6 Walking 10ft on Uneven Surface: 6 1 Step (curb) (QC): 6 4 Steps (QC): 6 12 Steps (QC): 6 Picking up an Object (QC): 6 Wheel 50 feet with 2 turns (QC: 9 Wheel 150 feet: 9 PT Plan Problem List Problem List: Activity Tolerance, Functional Strength, Safety, Balance, Gait, Transfer, ROM Treatment/Plan Treatment Plan: Continue Plan of Care Treatment Plan: Education, Functional Activity Yaima, Functional Strength, Group Therapy, Gait, Safety, Therapeutic Exercise, Transfers Treatment Duration: Jul 16, 2022 Frequency: At least 5 of 7 days/Wk (IRF) Estimated Hrs Per Day: 1.5 hours per day Patient and/or Family Agrees t: Yes Safety Risks/Education Patient Education: Gait Training, Transfer Techniques, Steps, Correct Po sitioning, Safety Issues Teaching Recipient: Patient Teaching Methods: Demonstration, Discussion Response to Teaching: Reinforcement Needed Discharge Recommendations Plan Patient will perform bed mobility and transfer training, balance and endurance training, functional strengthening, stair training, gait training, and education, to improve functional mobility and independence at home. Therapy Discharge Recommendati: Scheduled Assistance, Home & Family, Post Acute PT Time/GCodes Time In: 1100 Time Out: 1200 Total Billed Treatment Time: 60 Total Billed Treatment 1 visit EVM 15' EX 15' FA 30' SRIDHAR FIELDS PT Jun 25, 2022 11:55
--- NOTE | 2022-06-25 12:35 | ST Cognitive Linguistic Eval ---
Speech Evaluation-General Medical Diagnosis GI bleed Onset Date: Jun 20, 2022 Therapy Diagnosis Therapy Diagnosis: Intact Cognitive Linguistic Skills Precautions Precautions: Fall, Pressure Ulcer Precautions/Isolations: Fall Prevention, Standard Precautions, Pressure Ulcer Referral Referring Physician: Dr. Estes Reason for Referral: Evaluation/Treatment Medical History Pertinent Medical History: Back Injury, CABG, COPD, CVA Current History The patient is a 76 year-old female, who presents to ARU due to debility following an ICU stay for presumed GIB with severe anemia. Reviewed History: Yes Social History Current Living Status: Spouse Speech PLF-Current Status Prior Level of Function The patient denied prior concerns or challenges with her speech, language, or cognition. Subjective The patient was seated upright in her recliner, awake and alert upon entrance to her room by the clinician. The patient greeted the clinician appropriately and was agreeable to participation in the cognitive linguistic assessment. The patient's was present at bedside. Language Eval: Auditory Comprehends Simple Yes/No Ques: Functional Indent/Objects Multiple [place]: Functional Ident/Pics in Multiple [place]: Functional Follows 1-Step Commands: Functional Follows General Conversations: Functional Language Eval: Verbal Language Completes Spontaneous Greeting: Functional Produces Auto, Serial Info: Functional Imitates Simple Words/Phrases: Functional Word Finding: Functional Requests Basic Needs: Functional Expresses Complex Ideas: Functional Language Evaluation: Reading Follows Simple Written Direct: Functional Language Evaluation: Writing Writes to Simple Dictation: Functional Cognitive Patient Orientation The patient was independently oriented to self, location, month, day of the week, date, and year. Objective Cognitive Domain Attention: WNL Memory: WNL Problem Solving: Functional Executive Functions: WNL Visuospatial Skills: WNL Composite Severity Rating: WNL Clock Drawing Severity Rating: WNL Objective Formal/Standardized Tests [facility] Mental Status Exam (UMS) Results The patient demonstrated a result of +30/30 on the SLUMS correlating to cognitive linguistic skills within normal limits. Oral Motor/Speech Production The patient does not display dysarthria or apraxia of speech. The patient was 100% intelligible in known and unknown contexts. Impression The patient demonstrated cognitive linguistic skills within normal limits and at baseline function. Speech Patient Assess Expression of Ideas/Wants: Expression (4) Understanding Verbal Content: Understands (4) Brief Interview-Mental Status: Yes Repetition of Three Words: Three (3) Temporal Orientation: Year: Correct (3) Temporal Orientation: Month: Accurate within 5 days(2) Temporal Orientation: Day: Correct (1) Recall : Wear to say "Sock": Yes, no cue required (2) Recall : Color: Yes, no cue required (2) Recall : Bed: Yes, no cue required (2) Memory/Recall Ability: Current season, Location of own room, Staff names and faces, That he or she is in a hsp/hsp unit Speech-Plan Treatment Plan Speech Therapy Treatment Plan: Discontinue ST Treatment Duration: Jun 25, 2022 Frequency: 1 time per week Estimated Hrs Per Day: .5 hour per day Rehab Potential: Fair Safety Risks/Education Teaching Recipient: Patient, Significant Other Teaching Methods: Discussion Response to Teaching: Verbalize Understanding Education Topics Provided: Results, Recommendations, Plan of Care Time Speech Therapy Time In: 14:00 Speech Therapy Time Out: 14:15 Total Billed Time: 15 Billed Treatment Time 1, VIKTOR GILLESPIE Jun 25, 2022 12:35
--- NOTE | 2022-06-25 15:03 | Therapy Group Daily Note ---
Therapy Daily Group Note Patient Education Topic Exercises, Other List Below (Pain Management) Exercises LE Seated Exercise, UE Exercise Session Ratio (pt:therapist): 3:1 Goal of Session: Education on ARU Expectations, UE/LE Strengthing, Other (list) (Pain Management) Goal Met for this Session: Yes Pt Benefit of Group: Contributions to Others, F/U Use of Strategies @Home, Increased Functional Safety, Increased Functional Strength, Improved Cognition, Recognition of Peers, Socialization Other/Notes Pt ambulated using FWW to [facility] for OT/PT group. Group consisted of introductions (name, place living), socialization, B UE/LE seated exercises, education on pain management and exercise. Pt introduced self appropriately and actively listened to peers. Pt tolerated B UE/LE seated exercises. Pt acknowledged understanding of educational topics by engaging in conversation, giving personal examples and actively listening to topic. After therapy, pt sitting in recliner with call light/phone in reach. All needs met in room. Start Time: 13:00 Stop Time: 14:00 Total Billed Treatment Time: 60 Total Billed Treatment 1, ROSHAN AGUILARKIRK CEMENT MIXER DRIVER Jun 25, 2022 15:02
[2022-06-25 20:44] VITALS: BP 117/55
[2022-06-25] MEDS: MONTELUKAST 10 MG (SINGULAIR) TAB PO SCH (21:41)
[2022-06-25] MEDS: ROSUVASTATIN 20 MG (CRESTOR) TABLET PO SCH (21:42)
[2022-06-25] MEDS: DULoxetine 30 MG (CYMBALTA) CAP PO SCH (21:42)
--- NOTE | 2022-06-26 06:27 | PM&R Progress Note ---
Subjective HPI/CC On Admission Date Seen by Provider: Jun 26, 2022 Time Seen by Provider: 09:00 Subjective/Events-last exam 06/26/2022: Doing well No pain reported No falls Iron infusions tolerated 06/25/2022: Venofer today Capsule endoscopy will be done at [place] Monitoring closely Breathing well 06/24/2022: Patient doing well Moving to independent room Tolerating iron will get another dose tomorrow Vitamin B12 supplement maintained Check meds and labs Review of Systems General: Fatigue, Malaise Pulmonary: Dyspnea Objective Exam Vital Signs Vital Signs Date Time Temp Pulse Resp B/P (MAP) Pulse Ox O2 Delivery O2 Flow Rate FiO2 06/26/22 21:45 Nasal Cannula 2.00 06/26/22 20:25 36.9 74 20 126/57 (80) 100 06/26/22 07:47 28 Capillary Refill : General Appearance: No Apparent Distress, WD/WN, Anxious, Chronically ill HEENT: PERRL/EOMI, Normal ENT Inspection, Pharynx Normal Neck: Full Range of Motion, Normal Inspection, Non Tender, Supple, Carotid Bruit Respiratory: Chest Non Tender, Lungs Clear, Normal Breath Sounds, No Accessory Muscle Use, No Respiratory Distress, Decreased Breath Sounds Cardiovascular: Regular Rate, Rhythm, No Edema, No Gallop, No JVD, No Murmur, Normal Peripheral Pulses Gastrointestinal: Normal Bowel Sounds, No Organomegaly, No Pulsatile Mass, Non Tender, Soft Back: Normal Inspection, No CVA Tenderness, No Vertebral Tenderness Extremity: Normal Capillary Refill, Normal Inspection, Normal Range of Motion, Non Tender, No Calf Tenderness, No Pedal Edema Neurologic/Psychiatric: Alert, Oriented x3, No Motor/Sensory Deficits, Normal Mood/Affect, Motor Weakness (generalized) Skin: Normal Color, Warm/Dry Lymphatic: No Adenopathy Results/Procedures Lab Patient resulted labs reviewed. FIM Transfers Therapy Code Descriptions/Definitions Functional [place] Measure: 0=Not Assessed/NA 4=Minimal Assistance 1=Total Assistance 5=Supervision or Setup 2=Maximal Assistance 6=Modified [place] 3=Moderate Assistance 7=Complete IndependenceSCALE: Activities may be completed with or without assistive devices. 4-Lofjbmnegp-fqpotmp completes the activity by him/herself with no assistance from a helper. 5-Set-up or Clean-up Assistance-helper sets up or cleans up; patient completes activity. [place] assists only prior to or following the activity. 4-Supervision or Touching Assistance-helper provides verbal cues and/or touching/steadying and/or contact guard assistance as patient completes activity. Assistance may be provided throughout the activity or intermittently. 3-Partial/Moderate Assistance-helper does LESS THAN HALF the effort. [place] lifts, holds or supports trunk or limbs, but provides less than half the effort. 2-Substantial/Maximal Assistance-helper does MORE THAN HALF the effort. [place] lifts or holds trunk or limbs and provides more than half the effort. 8-Sdiwparll-iccjke does ALL the effort. Patient does none of the effort to complete the activity. Or, the assistance of 2 or more helpers is required for the patient to complete the activity. If activity was not attempted, code reason: 7-Patient Refused. 9-Not Applicable-not attempted and the patient did not perform the activity before the current illness, exacerbation or injury. 10-Not Attempted due to Environmental Limitations-(lack of equipment, weather restraints, etc.). 88-Not Attempted due to Medical Conditions or Safety Concerns. Roll Left to Right (QC): 6 Sit to Lying (QC): 6 Sit to Stand (QC): 6 Chair/Trq-cn-Tvtus Xfer(QC): 6 Car Transfer (QC): 6 Gait Training Does the Patient Walk?: Yes Walk 10 feet (QC): 6 Walk 50 ft with 2 Turns(QC): 6 Walk 150 ft (QC): 6 Walking 10ft/uneven surface-QC: 6 Gait Assistive Device: None Wheelchair Training Wheel 50 ft with 2 turns (QC): 9 Wheel 150 ft (QC): 9 Stair Training #of Steps: 4 1 Step (curb) (QC): 4 4 Steps (QC): 4 12 Steps (QC): 88 Balance Picking up an Object (QC): 4 (SBA, has difficulty reaching all the way to the floor, would probably perform better with a compressor operator) ADL-Treatment Eating (QC): 6 (Per pt report) Oral Hygiene (QC): 6 Shower/Bathe Self (QC): 5 (set up only to cover IV site.) Upper Body Dressing (QC): 6 Lower Body Dressing (QC): 6 On/Off Footwear (QC): 6 (slip on shoes.) Toileting Hygiene (QC): 6 Assessment/Plan Assessment and Plan Assess & Plan/Chief Complaint Assessment: Debility Anemia s/p 3 units of blood in ICU with recent negative scopes holding ASA and OAC restarted Plavix PAF Angina CAD recent stent in vein graft CHF diastolic type CABG 2006 HTN hx HLP PVD Carotid stenosis s/p LCEA Pulmonary HTN upcoming heart cath in near future COPD O2 dependent CKD Hypothyroidism Acute hypokalemia Plan: IRF protocol Monitor closely PT OT Home meds Hold OAC Hold ASA for now 06/24/2022: IV iron infusions Supportive care 06/25/2022: Capsule endoscopy Monitor closely 06/26/2022: Monitor closely DC Tely (1) Severe anemia Status: Acute (2) CAD (coronary artery disease) (3) Atrial fibrillation (4) Dyspnea on minimal exertion Status: Acute AYUSH SEXTON DO Jun 26, 2022 06:27
[2022-06-26] MEDS: CYANOCOBALAMIN 1,000 MCG (VITAMIN B-12) TABLET PO SCH (06:34)
[2022-06-26] MEDS: KCL 10 MEQ TAB (MICRO K) PO SCH ×2 (06:34→06:35)
[2022-06-26] MEDS: LEVOTHYROXINE 112 MCG (LEVOTHROID) TAB PO SCH (06:34)
--- NOTE | 2022-06-26 06:47 | Individualized Plan of Care ---
Individualized Plan of Care Rehab Nursing IPOC Order Admission Date Jun 23, 2022 at 14:10 Current Orders Orders Admission Order(Inpt,Obs,Sdc) (06/23/22 06:25) Vital Signs: Per Unit Policy ( 08,16,00 (06/23/22 06:25) Sudarshan Hutchinson ,21 (06/23/22 06:25) Sequential Compression Device (06/23/22 06:25) Interface Developer-Inpt Rehab Con (06/23/22 06:25) Rehab Nursing Orders-Ipoc (06/23/22 06:25) Physical Therapy Rehab Orders (06/23/22 06:25) Occupational Therapy Rehab Ord (06/23/22 06:25) Speech Therapy Rehab Orders (06/23/22 06:25) Cbc With Automated Diff (06/24/22 06:00) Comprehensive Metabolic Panel (06/24/22 06:00) Precautions (Aru) (06/23/22 06:25) Weekly Weight WEEK (06/23/22 06:25) Rehab-Intensity Of Therapy (06/23/22 06:25) Initiate Admission Nursing Pro .admission (06/23/22 06:25) Alprazolam Tablet (Xanax Tablet) (06/23/22 06:30) Calcium Carbonate Chew Tablet (Antacid C (06/23/22 06:30) Diphenhydramine Tablet (Benadryl Tablet) (06/23/22 06:30) Docusate Sodium Capsule (Colace Capsule) (06/23/22 09:00) Docusate Sodium Capsule (Colace Capsule) (06/23/22 06:30) Bisacodyl Suppository (Dulcolax Supposit (06/23/22 06:30) Lactulose Oral Solution (Enulose Oral So (06/23/22 06:30) Na Phos/Na Biphos Enema (Fleet Enema Primo (06/23/22 06:30) Guaifenesin/Codeine Syrup (Robitussin Ac (06/23/22 06:30) Loperamide Tablet (Imodium Tablet) (06/23/22 06:30) Melatonin Tablet (Melatonin Tablet) (06/23/22 06:30) Polyethylene Glycol Powder Pkt (Miralax (06/23/22 09:00) Ondansetron Oral Dissolve Tab (Zofran (06/23/22 06:30) Senna S Tablet (Senokot S Tablet) (06/23/22 09:00) Acetaminophen Tablet/Caplet (Tylenol T (06/23/22 06:30) Initiate Admission Nursing Pro .admission (06/23/22 06:25) Iron Sucrose Injection (Venofer Injectio (06/23/22 11:00) Cyanocobalamin Injection (Vitamin B-12 I (06/23/22 06:30) Cyanocobalamin Tablet (Vitamin B-12 Tabl (06/24/22 07:00) Potassium Chloride (Tablet) (K Dur Table (06/24/22 06:00) Transfer - Bed/Room/Location (06/23/22 14:10) Docusate Sodium Capsule (Colace Capsule) (06/23/22 21:00) Polyethylene Glycol Powder Pkt (Miralax (06/23/22 21:00) Senna S Tablet (Senokot S Tablet) (06/23/22 21:00) Iron Sucrose Injection (Venofer Injectio (06/23/22 15:30) Cyanocobalamin Injection (Vitamin B-12 I (06/23/22 13:30) Code/Resuscitation (06/23/22 15:48) Iv/Invasive Line Insertion .IV start (06/23/22 15:48) Sudarshan Hutchinson (06/23/22 15:48) Telemetry (06/23/22 15:48) Vte Contraindication (06/23/22 15:48) General/Regular (06/23/22 Dinner) (Nf) Nebivolol Hcl (Bystolic) (06/23/22 21:00) Alprazolam Tablet (Xanax Tablet) (06/23/22 16:00) Albuterol Pre-Mix Nebs (Rt) (Proventil (06/23/22 16:00) Allopurinol Tablet (Zyloprim Tablet) (06/24/22 09:00) Diphenhydramine Injection (Benadryl Inje (06/23/22 16:00) Diphenhydramine Tablet (Benadryl Tablet) (06/23/22 16:00) Cholecalciferol Capsule/Tablet (Vitamin (06/24/22 09:00) Clopidogrel Tablet (Plavix Tablet) (06/24/22 09:00) Docusate Sodium Capsule (Colace Capsule) (06/23/22 21:00) Duloxetine Capsule (Cymbalta Capsule) (06/23/22 21:00) Dronedarone Tablet (Multaq Tablet) (06/23/22 21:00) Bisacodyl Suppository (Dulcolax Supposit (06/23/22 16:00) Lactulose Oral Solution (Enulose Oral So (06/23/22 16:00) Furosemide Tablet (Lasix Tablet) (06/24/22 09:00) Hydrocodone/Apap 10/325 Tablet (Lortab 1 (06/23/22 16:00) Hydromorphone Injection (Dilaudid Inject (06/23/22 16:00) Isosorbide Mononitrate Tablet (Imdur Tab (06/24/22 09:00) Levothyroxine Tablet (Synthroid Tablet) (06/24/22 06:30) Magnesium Oxide Tablet (Mag Ox Tablet) (06/24/22 08:00) Melatonin Tablet (Melatonin Tablet) (06/23/22 16:00) Magnesium Hydroxide Oral Susp (Mom Oral (06/23/22 16:00) Polyethylene Glycol Powder Pkt (Miralax (06/23/22 16:00) Montelukast Tablet (Singulair Tablet) (06/23/22 21:00) Antacid Suspension (Mylanta Suspension (06/23/22 16:00) Naloxone Injection (Narcan Injection) (06/23/22 16:00) Nitroglycerin 0.4 Mg Btl 25's (Nitrostat (06/23/22 16:00) Nystatin Oral Suspension (Mycostatin O (06/23/22 16:00) Potassium Chloride (Tablet) (Klor Con Ta (06/24/22 07:00) Rosuvastatin Tablet (Crestor Tablet) (06/23/22 21:00) Sennosides Tablet (Senokot Tablet) (06/23/22 21:00) Calcium Carbonate Chew Tablet (Antacid C (06/23/22 16:00) Acetaminophen Tablet/Caplet (Tylenol T (06/23/22 16:00) Ondansetron Injection (Zofran Injectio (06/23/22 16:00) Ondansetron Oral Dissolve Tab (Zofran (06/23/22 16:00) Oxycodone Immediate Rel Tablet (Oxyir Ta (06/23/22 16:00) Consult Cardiology (06/23/22 15:48) Mat Initiate Protocol (06/23/22 15:48) Telemetry Nursing Assessment ( (06/23/22 15:48) Svn Small Volume Nebulizer (06/23/22 15:48) Pantoprazole Tablet (Protonix Tablet) (06/24/22 09:00) Potassium Chloride (Tablet) (Klor Con Ta (06/24/22 07:45) Transfer - Bed/Room/Location (06/24/22 14:00) Hemoglobin And Hematocrit (06/25/22 05:51) Basic Metabolic Panel (06/25/22 05:51) Magnesium (06/25/22 05:51) Aspirin Enteric Coated Tablet (Ecotrin T (06/25/22 10:00) Ekg Tracing (06/25/22 09:58) Patient Visit (06/25/22 ) Speech Sound Lang Comp (06/25/22 ) Patient Visit (06/25/22 ) Pt Eval Moderate Complexity (06/25/22 ) Exercise Therap, Ea 15 Min (06/25/22 ) Functional Activities, Ea 15 (06/25/22 ) Patient Visit (06/25/22 ) Therapeutic, Group (06/25/22 ) Rehab Nursing Orders: Ongoing Assess. of Cognitive Status, Ongoing Assess. of Function Status, Bladder Management, Bladder Scan, Bladder Training, Bowel Management, Bowel Training, Disease Management & Educaiton, DVT Prophylaxis, Fall Prevention, Fluid/Electrolyte/Nutrition Mgmt, Infection Prevention, Me dication Management & Education, Management of Risks & Complications, Management of Skin Intergrity, Nutrition Management, Pain Management, Patient/Family Support, Safety Management Intensity of Therapy to be met Patient to be seen: Min.3h per day/5 of 7d PT IPOC Problem List: Activity Tolerance, Functional Strength, Safety, Balance, Gait, Transfer, ROM Treatment Plan: Continue Plan of Care Education, Functional Activity Yaima, Functional Strength, Group Therapy, Gait, Safety, Therapeutic Exercise, Transfers Treatment Duration: Jul 16, 2022 Frequency: At least 5 of 7 days/Wk (IRF) Estimated Hrs Per Day: 1.5 hours per day OT IPOC Problems: Decreased Activ Tolerance, Decreased UE Strength, Impaired I ADL's OT Treatment, Training and Edu: Yes OT Problems Pt is currently at [facility] with all ADLS, independent to gather clothing/ADL items and she was able to step in/out of bathtub using GBs. She lives at home with her spouse who is able to assist with I/ADLs if/when needed. Even though pt is independent and at OF, per physician and rehab plan, pt is currently on ARU for skilled therapy prior to returning home at discharge, thus with continue receiving OT services. Plan of Care: ADL Retraining, Functional Mobility, Group Exercise/Act as Ind, UE Funct Exercise/Act Treatment Duration: Jul 13, 2022 Frequency: At least 5 of 7 days/Wk (IRF) Estimated Hrs Per Day: 1.[address] IPOC Speech Therapy Treatment Plan: Discontinue ST Treatment Duration: Jun 25, 2022 Frequency: 1 time per week Estimated Hrs Per Day: .5 hour per day Interface Developer/Case Mgmt Interface Developer/Case Managemen: Discharge Planning Dietitian/Orthopedic Tech Dietitian/Orthopedic Tech to monitor nutritional status and make changes and/or recommendations as needed and work with speech pathology on dietary upgrades as the occur. Physician IPOC Medical Issues being managed closely and that require the 24 hour availability of a physician: Recent GIB requiring 3 units of blood along with COPD O2 dependency and cardiac dysfunction will require close monitoring for decompensation during hospital course along with cardiology consultation Medical Issues: Bowel/Bladder Function, DVT Prophylaxis, Falls Precautions, Fluid/Electrolyte/Nutrition Balance, Infection Protection, Pain Management Brief Synthesis of Preadmission Screen, Post-Admission Evaluation, and Therapy Evaluations: PT OT will focus on regaining function in order to regain independence while acquiring clinical stability in order to return home Medical Prognosis: Good Anticipated Length of Stay: 7 days AYUSH SEXTON DO Jun 26, 2022 06:46
[2022-06-26 07:47] VITALS: BP 117/55
[2022-06-26 07:53] VITALS: BP 124/69
--- NOTE | 2022-06-26 08:12 | Cardiology Progress Note ---
Subjective Date Seen by Provider: Jun 26, 2022 Time Seen by Provider: 08:10 Subjective/Events-last exam Patient sitting up in chair, no new complaints. Denies any chest pain or pa lpitations. Objective-Cardiology Exam Last Set of Vital Signs Vital Signs 06/26/22 06/27/22 07:47 07:46 Temp 36.8 Pulse 69 Resp 18 B/P (MAP) 119/58 (78) Pulse Ox 94 O2 Delivery Nasal Cannula O2 Flow Rate 2.00 FiO2 28 General: Alert, Oriented X3 HEENT: Atraumatic Neck: Supple Lungs: Clear to Auscultation, Normal Air Movement Heart: Regular Rate, Normal S1, Normal S2 Abdomen: Normal Bowel Sounds, Soft Skin: No Rashes, No Significant Lesion Neuro: Normal Speech Psych/Mental Status: Mental Status NL, Mood NL A/P-Cardiology Admission Diagnosis GI bleed CAD CHF PAF Assessment/Plan Anemia, most probably GI loss on top of anemia of chronic disease. s/p transfusion. H/H stable, continue to monitor Dr. Bedolla following, patient will need to have capsule endoscopy as outpatient. Will continue to hold Xarelto at this time. Chest pain, resembling angina, improved after blood transfusion. Paroxysmal atrial fibrillation/flutter, Patient was treated with amiodarone in the past and it was stopped due to the underlying lung disease and shortness of breath, patient is oxygen dependent Treated with Multaq and it was stopped due to the congestive heart failure She was intolerant to higher dose of beta-blockers due to bradycardia and syncope Patient has failed attempt for cardioversion on October 06, 2021, referred to Dr. Miller at , underwent ablation in October 2021. Has occasional breakthrough episodes of afib. Maintained on Multaq. NIKKI was done on October 06, 2021 showing dilated left atrium and left atrial appendage with no clot or thrombus, normal LV size, EF 60%, mild MR, aortic valve sclerosis with no stenosis. Failed attempt for cardioversion Coronary artery disease, history of CABG 3 done in 2006. Cardiac catheterization was done in February 2014 showing patent LUNA to the LAD, 60 percent stenosis at the distal portion of the LUNA. The proximal LAD has 90 percent stenosis with good flow supply to the LAD system. The vein graft to the obtuse marginal branch is patent with excellent flow distally and the vein graft to the right coronary artery is patent with excellent flow distally. Normal left ventricular size and systolic function. Cardiac catheterization done January 02, 2021 showing Patent LUNA to LAd, VG to the RCA. VG to the obtuse marginal branch has mod stenosis at an area followed by aneurysmal dilatation. Occluded prox circumflex artery corrected by the vein graft. Occluded prox RCA corrected by the VG. Right PDA was small vessel disease distally. Severe mid LAd stenosis corrected with the LUNA with dual supply to the LAD territory. Cardiac catheterization done on June 06, 2022 with stenting of the vein graft to the circumflex artery using skypoint stent 3.5 x 23 mm, patent LUNA to LAD and vein graft to the right coronary artery with severe [place] coronary artery disease, small vessel disease. Plavix and ASA restarted. History of frequent premature ventricular contractions. Patient has episodes of frequent paroxysmal atrial tachycardia with wide-complex tachycardia, sees Dr. Miller at [facility]. She is status post Linq implantation that has been followed by Dr. Miller. Hypertension, controlled. Continue to monitor blood pressure Hyperlipidemia, continue to monitor. History of carotid stenosis. Left carotid endarterectomy. Last ultrasound report showed moderate disease in the right carotid artery, more significant disease on the left side. Followed and managed by heart and vascular care. Continue to monitor. History of dizziness and lightheadedness. Reporting improvement. Continue to monitor. COPD, managment per Dr. Menjivar Pulmonary hypertension. Dr. Menjivar recommending RHC, planning for LHC and RHC next month. History of renal failure Hypothyroidism followed and managed by primary care physician. Chronic renal insufficiency, patient is following with Dr. Erica Meza Supervisory-Addendum Brief Supervisory Addendum Participated in pt care: history, MDM, physical Personally performed: exam, history, MDM Care discussed with: MARTINE Results interpretation: Verified all documentation Notes: Patient was seen and evaluated with Beata, examination performed, management plan was discussed, agree with the current scribed note, I made few changes to the note using Italic font BEATA PRATER Jun 26, 2022 08:12 DARSHAN SEGUNDO MD Jun 27, 2022 16:48
--- NOTE | 2022-06-26 08:15 | Occupational Ther Daily Note ---
OT Current Status-Daily Note Subjective Pt up in recliner, agreeable to OT tx. Mental Status/Objective Attachments: Oxygen (2L) ADL-Treatment Therapy Code Descriptions/Definitions Functional [place] Measure: 0=Not Assessed/NA 4=Minimal Assistance 1=Total Assistance 5=Supervision or Setup 2=Maximal Assistance 6=Modified [place] 3=Moderate Assistance 7=Complete IndependenceSCALE: Activities may be completed with or without assistive devices. 5-Hmwhsatxfz-[id number] completes the activity by him/herself with no assistance from a helper. 5-Set-up or Clean-up Assistance-helper sets up or cleans up; patient completes activity. [place] assists only prior to or following the activity. 4-Supervision or Touching Assistance-helper provides verbal cues and/or touching/steadying and/or contact guard assistance as patient completes act ivity. Assistance may be provided throughout the activity or intermittently. 3-Partial/Moderate Assistance-helper does LESS THAN HALF the effort. [place] lifts, holds or supports trunk or limbs, but provides less than half the effort. 2-Substantial/Maximal Assistance-helper does MORE THAN HALF the effort. [place] lifts or holds trunk or limbs and provides more than half the effort. 0-Pbjwfxjkg-ytpwsa does ALL the effort. Patient does none of the effort to complete the activity. Or, the assistance of 2 or more helpers is required for the patient to complete the activity. If activity was not attempted, code reason: 7-Patient Refused. 9-Not Applicable-not attempted and the patient did not perform the activity before the current illness, exacerbation or injury. 10-Not Attempted due to Environmental Limitations-(lack of equipment, weather restraints, etc.). 88-Not Attempted due to Medical Conditions or Safety Concerns. Eating (QC): 6 Oral Hygiene (QC): 6 Toileting Hygiene (QC): 6 Toilet Transfer (QC): 6 Other Treatment Pt up in recliner, agreeable to OT tx. Pt reports she has already used the bathroom and completed oral care and simple grooming independently, pt is currently up ad [place] in her room. Pt performed functional mobility from room to therapy gym, pt managed her own O2 tank during ambulation. OT tx focused on increasing BUE strength, activity tolerance, and increasing pulmonary function. Pt completed x15 mins on arm bike, x20-25 Watt resistance. Pt then completed pegboard task, placing/removing 1" pegs from foam pegboard, 1lb wrist weights BUEs, completing x100 pegs. Pt then completed pulleys in order to increase BUE ROM, and decrease pain in shoulders. Pt reports prior rotator cuff tear in R with repair, and now her L rotator cuff is having issues. Pt states they pulleys feel made her shoulders feel better. Pt returned to her room, managing portable O2 tank independently and pushed chair into table prior to leaving gym. Post tx, pt in recliner in her room, call light in reach and all needs met. Pt able to turn of portable tank and hook herself up to wall O2. Education OT Patient Education: Correct positioning, Modified ADL techniques, Progress toward Goal/Update tx plan, Purpose of tx/functional activities, Rehab process Teaching Recipient: Patient Teaching Methods: Discussion Response to Teaching: Verbalize Understanding OT Food Production Manager Goals Skilled Nursing Goals Time Frame: Jul 13, 2022 Eating (QC): 6 Oral Hygiene (QC): 6 Toileting Hygiene (QC): 6 Shower/Bathe Self (QC): 6 Upper Body Dressing (QC): 6 Lower Body Dressing (QC): 6 On/Off Footwear (QC): 6 Additional Goals: 1-Demonstrate ADL Tasks, 2-Verbalize Understanding, 3- ImproveStrength/Yaima 1=Demonstrate adherence to instructed precautions during ADL tasks. 2=Patient will verbalize/demonstrate understanding of assistive devices/modifications for ADL. 3=Patient will improve strength/tolerance for activity to enable patient to perform ADL's. OT Education/Plan Problem List/Assessment Assessment: Decreased Activ Tolerance, Decreased UE Strength, Impaired I ADL's Pt is currently at PLOF with all ADLS, independent to gather clothing/ADL items and she was able to step in/out of bathtub using GBs. She lives at home with her spouse who is able to assist with I/ADLs if/when needed. Even though pt is independent and at PLOF, per physician and rehab plan, pt is currently on ARU for skilled therapy prior to returning home at discharge, thus with continue receiving OT services. Discharge Recommendations Plan/Recommendations: Continue POC Treatment Plan/Plan of Care Patient would benefit from OT for education, treatment and training to promote independence in ADL's, mobility, safety and/or upper extremity function for ADL's. Plan of Care: ADL Retraining, Functional Mobility, Group Exercise/Act as Ind, UE Funct Exercise/Act Treatment Duration: Jul 13, 2022 Frequency: At least 5 of 7 days/Wk (IRF) Estimated Hrs Per Day: 1.5 hours per day Agreement: Yes Rehab Potential: Fair Time/GCodes Start Time: 08:00 Stop Time: 09:30 Total Time Billed (hr/min): 90 Billed Treatment Time 1, EX 2 (30'), FA 4 (60') MOHAMUD FALL OT Jun 26, 2022 08:15
--- NOTE | 2022-06-26 08:56 | Progress Note - Surgery ---
Subjective Date Seen by a Provider: Jun 26, 2022 Time Seen by a Provider: 08:45 Subjective/Events-last exam Pt in physical therapy, tolerating well. She has received x 3 units of blood since admission and had an iron infusion yesterday, tolerated well. States she feels the about the same. She continues to have SOB with ambulation and mild fatigue. She also has headaches, which just started since admission, controlled with Tylenol. She denies abdominal pain, fever, chills, blood in stool, chest pain, or any other complaints. She is eating, drinking, urinating, and having normal bowel movements. Review of Systems General: No Chills, No Night Sweats HEENT: Head Aches (intermittent); No Visual Changes Pulmonary: Dyspnea (with ambulation); No Cough Cardiovascular: No: Chest Pain Gastrointestinal: No: Nausea, Vomiting, Abdominal Pain, Diarrhea, Constipation, Melena Genitourinary: No Retention Objective Exam Vital Signs Date Time Temp Pulse Resp B/P (MAP) Pulse Ox O2 Delivery O2 Flow Rate FiO2 06/26/22 07:53 35.9 106 18 124/69 (87) 97 Nasal Cannula 2.00 06/26/22 07:47 36.8 68 100 28 06/26/22 07:45 100 Nasal Cannula 2.00 06/26/22 01:00 68 06/25/22 21:35 Nasal Cannula 2.00 06/25/22 21:18 95 Nasal Cannula 2.00 06/25/22 20:44 36.8 70 20 117/55 (75) 100 Nasal Cannula 2.00 06/25/22 19:00 63 06/25/22 12:50 67 06/25/22 09:00 Nasal Cannula 2.00 Capillary Refill : General Appearance: No Apparent Distress, Chronically ill HEENT: PERRL/EOMI, Pharynx Normal Neck: Non Tender, Supple Respiratory: Lungs Clear, Normal Breath Sounds, No Accessory Muscle Use, No Respiratory Distress Cardiovascular: Regular Rate, Rhythm, No Gallop, No Murmur Peripheral Pulses: 2+ Radial Pulses (R), 2+ Radial Pulses (L) Gastrointestinal: normal bowel sounds, non tender, soft Extremity: No Calf Tenderness, No Pedal Edema Neurologic/Psychiatric: Alert, Oriented x3, Normal Mood/Affect Skin: Normal Color, Warm/Dry Lymphatic: No Adenopathy (of supraclavicluar or axillary LNs) Assessment/Plan Assessment/Plan Assessment/Plan Hemoccult + stools Iron deficiency Anemia Afib CAD Continue monitoring labs, and transfuse if Hb below 7. Continue plavix and aspirin. Diet as tolerated, continue protonix. Discussed capsule endoscopy evaluation which would be at another facility since we don't have that silvina hendricks. If this study is inconclusive may do a repeat EGD and colonoscop which she just recently had. Pt agrees and understands plan. Will sign off, call if needed. Clinical Quality Measures DVT/VTE Risk/Contraindication: Contraindications-Pharm: Other *list below* Other: DELMI Knapp Jun 26, 2022 08:56
[2022-06-26] MEDS: PANTOPRAZOLE 40 MG (PROTONIX) TAB PO SCH (09:48)
[2022-06-26] MEDS: ASPIRIN E.C. 81 MG (ECOTRIN) TAB PO SCH (09:48)
[2022-06-26] MEDS: SENNOSIDES 8.6 MG (SENOKOT) TAB PO SCH ×2 (09:48→21:50)
[2022-06-26] MEDS: VITAMIN D3 125 MCG (5,000 UNITS) CAPSULE PO SCH (09:48)
[2022-06-26] MEDS: DRONEDARONE 400 MG TABLET PO SCH ×2 (09:48→21:46)
[2022-06-26] MEDS: FUROSEMIDE 40 MG (LASIX) TAB PO SCH (09:48)
[2022-06-26] MEDS: ISOSORBIDE MONONITRATE 30 MG (IMDUR) TAB PO SCH (09:48)
[2022-06-26] MEDS: MAGNESIUM OXIDE (MAG-OX)400 MG TAB PO SCH (09:48)
[2022-06-26] MEDS: ALLOPURINOL 300 MG (ZYLOPRIM) TAB PO SCH (09:49)
[2022-06-26] MEDS: SENNA W/DOCUSATE (SENOKOT S) TABLET PO SCH ×2 (09:49→21:50)
[2022-06-26] MEDS: DOCUSATE SODIUM 100 MG (COLACE) CAP PO SCH ×2 (09:49→21:45)
[2022-06-26] MEDS: CLOPIDOGREL 75 MG (PLAVIX) TABLET PO SCH (09:49)
[2022-06-26] MEDS: [UNRECOGNIZED DRUG - REMARK] PO SCH ×2 (09:51→21:45)
[2022-06-26] MEDS: polyethylene glycoL POWDER 17 GM (MIRALAX) PACK PO SCH ×2 (10:03→21:52)
--- NOTE | 2022-06-26 10:56 | Diagnostic Imaging Report ---
PROCEDURE: CT head without contrast. TECHNIQUE: Multiple contiguous axial images were obtained through the brain without the use of intravenous contrast. Auto Exposure Controls were utilized during the CT exam to meet ALARA standards for radiation dose reduction. INDICATION: Headache. Correlation is made with head CT from 01/16/2018. 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 Periventricular white matter changes are noted consistent with chronic microvascular ischemia. There is no sulcal effacement. There is no midline shift. No acute intra-axial or extra-axial hemorrhage is detected. Cisterns are patent. Visualized paranasal sinuses are clear. IMPRESSION: Stable chronic changes when compared to exam from 01/14/2018. No acute intracranial process is detected. Dictated by: Dictated on workstation # [id number]
--- NOTE | 2022-06-26 12:04 | Physical Therapy Daily Note ---
PT Daily Note-Current Subjective Pt sitting in recliner with Sp present. Pt agrees to PT. Dr Estes & Nurse present in beginning of tx. Pain Location: No Pain Reported Mental Status Patient Orientation: Person, Place, Time, Situation Attachments: Oxygen (2L), IV Transfers SCALE: Activities may be completed with or without assistive devices. 0-Srsebhkmzb-rvocukd completes the activity by him/herself with no assistance from a helper. 5-Set-up or Clean-up Assistance-helper sets up or cleans up; patient completes activity. [place] assists only prior to or following the activity. 4-Supervision or Touching Assistance-helper provides verbal cues and/or touching/steadying and/or contact guard assistance as patient completes activity. Assistance may be provided throughout the activity or intermittently. 3-Partial/Moderate Assistance-helper does LESS THAN HALF the effort. [place] lifts, holds or supports trunk or limbs, but provides less than half the effort. 2-Substantial/Maximal Assistance-helper does MORE THAN HALF the effort. [place] lifts or holds trunk or limbs and provides more than half the effort. 2-Hdyktdadv-cndjzt does ALL the effort. Patient does none of the effort to complete the activity. Or, the assistance of 2 or more helpers is required for the patient to complete the activity. If activity was not attempted, code reason: 7-Patient Refused. 9-Not Applicable-not attempted and the patient did not perform the activity before the current illness, exacerbation or injury. 10-Not Attempted due to Environmental Limitations-(lack of equipment, weather restraints, etc.). 88-Not Attempted due to Medical Conditions or Safety Concerns. Sit to Stand (QC): 6 Weight Bearing Full Weight Bearing Full Weight Bearing Gait Training Does the Patient Walk?: Yes Distance: 500' Walk 10 feet (QC): 6 Walk 50 ft with 2 Turns(QC): 6 Walk 150 ft (QC): 6 Gait Assistive Device: None Wheelchair Training Does the Pt Use a Wheelchair?: No Exercises NuStep Minutes: 10 NuStep Workload: 5 Treatments After receiving med from Nurse & Dr Estes checking on pt, pt TF to standing and amb. in hallway. Pt uses NuStep followed by short RB. Pt returns to room with all needs met. Pt is Ad chelsea. Assessment Current Status: Good Progress Pt fabio. tx well for independence of tasks but still needs occasional RB for fatigue. PT Assisted Goals Assisted Goals PT Sound Truck Operator Goals Time Frame: Jul 16, 2022 Roll Left & Right (QC): 6 Sit to Lying (QC): 6 Lying-Sitting on Side/Bed(QC): 6 Sit to Stand (QC): 6 Chair/Wvl-lw-Uczpf Xfer(QC): 6 Toilet Transfer (QC): 6 Car Transfer (QC): 6 Does the Patient Walk: Yes Walk 10 feet (QC): 6 Walk 50ft with 2 Turns (QC): 6 Walk 150 ft (QC): 6 Walking 10ft on Uneven Surface: 6 1 Step (curb) (QC): 6 4 Steps (QC): 6 12 Steps (QC): 6 Picking up an Object (QC): 6 Wheel 50 feet with 2 turns (QC: 9 Wheel 150 feet: 9 PT Plan Problem List Problem List: Activity Tolerance Treatment/Plan Treatment Plan: Continue Plan of Care Treatment Plan: Education, Functional Activity Yaima, Functional Strength, Gr oup Therapy, Gait, Safety, Therapeutic Exercise, Transfers Treatment Duration: Jul 16, 2022 Frequency: At least 5 of 7 days/Wk (IRF) Estimated Hrs Per Day: 1.5 hours per day Patient and/or Family Agrees t: Yes Time/GCodes Time In: 930 Time Out: 1015 Total Billed Treatment Time: 45 Total Billed Treatment 1, GT x2 (30m) & EX (10m) KIRK AGUILAR EXECUTIVE SECRETARY Jun 26, 2022 12:04
--- NOTE | 2022-06-26 16:35 | Physical Therapy Daily Note ---
PT Daily Note-Current Subjective Pt sitting in recliner visiting with family upon arrival. Pt agrees to PT. Mental Status Patient Orientation: Person, Place, Time, Situation Attachments: Oxygen (2L) Transfers SCALE: Activities may be completed with or without assistive devices. 0-Bpeyfeipfs-zwthaxd completes the activity by him/herself with no assistance from a helper. 5-Set-up or Clean-up Assistance-helper sets up or cleans up; patient completes activity. [place] assists only prior to or following the activity. 4-Supervision or Touching Assistance-helper provides verbal cues and/or touching/steadying and/or contact guard assistance as patient completes activity. Assistance may be provided throughout the activity or intermittently. 3-Partial/Moderate Assistance-helper does LESS THAN HALF the effort. [place] lifts, holds or supports trunk or limbs, but provides less than half the effort. 2-Substantial/Maximal Assistance-helper does MORE THAN HALF the effort. [place] lifts or holds trunk or limbs and provides more than half the effort. 8-Prltfldrt-qdbggz does ALL the effort. Patient does none of the effort to complete the activity. Or, the assistance of 2 or more helpers is required for the patient to complete the activity. If activity was not attempted, code reason: 7-Patient Refused. 9-Not Applicable-not attempted and the patient did not perform the activity before the current illness, exacerbation or injury. 10-Not Attempted due to Environmental Limitations-(lack of equipment, weather restraints, etc.). 88-Not Attempted due to Medical Conditions or Safety Concerns. Sit to Stand (QC): 6 Weight Bearing Full Weight Bearing Full Weight Bearing Gait Training Does the Patient Walk?: Yes Distance: 175', 250', 175' Walk 10 feet (QC): 6 Walk 50 ft with 2 Turns(QC): 6 Walk 150 ft (QC): 6 Gait Assistive Device: None Stair Training Stair Training: Handrails/: 2 handrails #of Steps: 4 1 Step (curb) (QC): 6 4 Steps (QC): 6 Stairs: Pattern: Step to Treatments Pt TF to Standing and amb. in hallway, taking RB as needed. Pt completes stairs and returns to room to rest. Pt and family discuss progress and how Therapist thinks PT is going. Pt is Ad chelsea in room with all needs met. Assessment Current Status: Good Progress Pt continues to try to push self to improve activity tolerance. PT Fpc Goals Fpc Goals PT Fpc Goals Time Frame: Jul 16, 2022 Roll Left & Right (QC): 6 Sit to Lying (QC): 6 Lying-Sitting on Side/Bed(QC): 6 Sit to Stand (QC): 6 Chair/Hpc-rr-Fnocm Xfer(QC): 6 Toilet Transfer (QC): 6 Car Transfer (QC): 6 Does the Patient Walk: Yes Walk 10 feet (QC): 6 Walk 50ft with 2 Turns (QC): 6 Walk 150 ft (QC): 6 Walking 10ft on Uneven Surface: 6 1 Step (curb) (QC): 6 4 Steps (QC): 6 12 Steps (QC): 6 Picking up an Object (QC): 6 Wheel 50 feet with 2 turns (QC: 9 Wheel 150 feet: 9 PT Plan Problem List Problem List: Activity Tolerance Treatment/Plan Treatment Plan: Continue Plan of Care Treatment Plan: Education, Functional Activity Yaima, Functional Strength, Group Therapy, Gait, Safety, Therapeutic Exercise, Transfers Treatment Duration: Jul 16, 2022 Frequency: At least 5 of 7 days/Wk (IRF) Estimated Hrs Per Day: 1.5 hours per day Patient and/or Family Agrees t: Yes Safety Risks/Education Patient Education: Steps Teaching Recipient: Patient Teaching Methods: Discussion Response to Teaching: Verbalize Understanding Time/GCodes Time In: 1330 Time Out: 1415 Total Billed Treatment Time: 45 Total Billed Treatment 1, FA (15m) & GT x2 (30m) KIRK AGUILAR DATA WAREHOUSING MANAGER Jun 26, 2022 16:35
[2022-06-26 17:01] LABS: BILIRUBIN,URINE NEGATIVE (NEGATIVE); CLARITY,URINE CLEAR; COLOR,URINE YELLOW; GLUCOSE, URINE (UA) NEGATIVE (NEGATIVE); KETONES,URINE NEGATIVE (NEGATIVE); LEUKOCYTE ESTERASE ,URINE NEGATIVE (NEGATIVE); NITRITE,URINE NEGATIVE (NEGATIVE); PH,URINE 6.5 (5-9); PROTEIN,URINE NEGATIVE (NEGATIVE)
[2022-06-26 17:16] LABS: BACTERIA,URINE NEGATIVE /HPF
[2022-06-26 20:25] VITALS: BP 126/57
[2022-06-26] MEDS: ROSUVASTATIN 20 MG (CRESTOR) TABLET PO SCH (21:45)
[2022-06-26] MEDS: DULoxetine 30 MG (CYMBALTA) CAP PO SCH (21:45)
[2022-06-26] MEDS: MONTELUKAST 10 MG (SINGULAIR) TAB PO SCH (21:46)
[2022-06-27] MEDS: LEVOTHYROXINE 112 MCG (LEVOTHROID) TAB PO SCH (06:46)
[2022-06-27] MEDS: KCL 10 MEQ TAB (MICRO K) PO SCH ×2 (06:46)
[2022-06-27] MEDS: CYANOCOBALAMIN 1,000 MCG (VITAMIN B-12) TABLET PO SCH (06:46)
--- NOTE | 2022-06-27 07:11 | PM&R Progress Note ---
Subjective HPI/CC On Admission Date Seen by Provider: Jun 27, 2022 Time Seen by Provider: 12:00 Subjective/Events-last exam 06/27/2022: Doing well Venofer last dose Saturday No pain reported Capsule endoscopy will need to be arranged 06/26/2022: Doing well No pain reported No falls Iron infusions tolerated 06/25/2022: Venofer today Capsule endoscopy will be done at [facility] Monitoring closely Breathing well 06/24/2022: Patient doing well Moving to independent room Tolerating iron will get another dose tomorrow Vitamin B12 supplement maintained Check meds and labs Review of Systems General: Fatigue, Malaise Objective Exam Vital Signs Vital Signs Date Time Temp Pulse Resp B/P (MAP) Pulse Ox O2 Delivery O2 Flow Rate FiO2 06/27/22 21:15 99 Nasal Cannula 2.00 06/27/22 19:52 36.4 70 20 108/55 (72) 06/26/22 07:47 28 Capillary Refill : General Appearance: No Apparent Distress, WD/WN, Anxious, Chronically ill HEENT: PERRL/EOMI, Normal ENT Inspection, Pharynx Normal Neck: Full Range of Motion, Normal Inspection, Non Tender, Supple, Carotid Bruit Respiratory: Chest Non Tender, Lungs Clear, Normal Breath Sounds, No Accessory Muscle Use, No Respiratory Distress, Decreased Breath Sounds Cardiovascular: Regular Rate, Rhythm, No Edema, No Gallop, No JVD, No Murmur, Normal Peripheral Pulses Gastrointestinal: Normal Bowel Sounds, No Organomegaly, No Pulsatile Mass, Non Tender, Soft Back: Normal Inspection, No CVA Tenderness, No Vertebral Tenderness Extremity: Normal Capillary Refill, Normal Inspection, Normal Range of Motion, Non Tender, No Calf Tenderness, No Pedal Edema Neurologic/Psychiatric: Alert, Oriented x3, No Motor/Sensory Deficits, Normal Mood/Affect, Motor Weakness (generalized) Skin: Normal Color, Warm/Dry Lymphatic: No Adenopathy Results/Procedures Lab Patient resulted labs reviewed. FIM Transfers Therapy Code Descriptions/Definitions Functional [place] Measure: 0=Not Assessed/NA 4=Minimal Assistance 1=Total Assistance 5=Supervision or Setup 2=Maximal Assistance 6=Modified [place] 3=Moderate Assistance 7=Complete IndependenceSCALE: Activities may be completed with or without assistive devices. 0-Svnzloxunq-kefchuf completes the activity by him/herself with no assistance fr om a helper. 5-Set-up or Clean-up Assistance-helper sets up or cleans up; patient completes activity. [place] assists only prior to or following the activity. 4-Supervision or Touching Assistance-helper provides verbal cues and/or touching/steadying and/or contact guard assistance as patient completes activity. Assistance may be provided throughout the activity or intermittently. 3-Partial/Moderate Assistance-helper does LESS THAN HALF the effort. [place] lifts, holds or supports trunk or limbs, but provides less than half the effort. 2-Substantial/Maximal Assistance-helper does MORE THAN HALF the effort. [place] lifts or holds trunk or limbs and provides more than half the effort. 9-Shmivhlto-clzkhg does ALL the effort. Patient does none of the effort to complete the activity. Or, the assistance of 2 or more helpers is required for the patient to complete the activity. If activity was not attempted, code reason: 7-Patient Refused. 9-Not Applicable-not attempted and the patient did not perform the activity before the current illness, exacerbation or injury. 10-Not Attempted due to Environmental Limitations-(lack of equipment, weather restraints, etc.). 88-Not Attempted due to Medical Conditions or Safety Concerns. Roll Left to Right (QC): 6 Sit to Lying (QC): 6 Sit to Stand (QC): 6 Chair/Epm-dv-Ovymj Xfer(QC): 6 Car Transfer (QC): 6 Gait Training Does the Patient Walk?: Yes Distance: 175', 250', 175' Walk 10 feet (QC): 6 Walk 50 ft with 2 Turns(QC): 6 Walk 150 ft (QC): 6 Walking 10ft/uneven surface-QC: 6 Gait Assistive Device: None Wheelchair Training Does the Pt Use a Wheelchair?: No Wheel 50 ft with 2 turns (QC): 9 Wheel 150 ft (QC): 9 Stair Training Stair Training: Handrails/: 2 handrails #of Steps: 4 1 Step (curb) (QC): 6 4 Steps (QC): 6 12 Steps (QC): 88 Stairs: Pattern: Step to Balance Picking up an Object (QC): 4 (SBA, has difficulty reaching all the way to the floor, would probably perform better with a cuff turner machine operator) ADL-Treatment Eating (QC): 6 Oral Hygiene (QC): 6 Shower/Bathe Self (QC): 5 (set up only to cover IV site.) Upper Body Dressing (QC): 6 Lower Body Dressing (QC): 6 On/Off Footwear (QC): 6 (slip on shoes.) Toileting Hygiene (QC): 6 Toilet Transfer (QC): 6 Assessment/Plan Assessment and Plan Assess & Plan/Chief Complaint Assessment: Debility Anemia s/p 3 units of blood in ICU with recent negative scopes holding ASA and OAC restarted Plavix PAF Angina CAD recent stent in vein graft CHF diastolic type CABG 2006 HTN hx HLP PVD Carotid stenosis s/p LCEA Pulmonary HTN upcoming heart cath in near future COPD O2 dependent CKD Hypothyroidism Acute hypokalemia Plan: IRF protocol Monitor closely PT OT Home meds Hold OAC Hold ASA for now 06/24/2022: IV iron infusions Supportive care 06/25/2022: Capsule endoscopy Monitor closely 06/26/2022: Monitor closely DC Tely 06/27/2022: DC Saturday Benoitofer (1) Severe anemia Status: Acute (2) CAD (coronary artery disease) (3) Atrial fibrillation (4) Dyspnea on minimal exertion Status: Acute AYUSH SEXTON DO Jun 27, 2022 07:11
[2022-06-27 07:46] VITALS: BP 119/58
[2022-06-27] MEDS: ALLOPURINOL 300 MG (ZYLOPRIM) TAB PO SCH (08:41)
[2022-06-27] MEDS: IRON SUCROSE 200 MG/10 ML (VENOFER) VIAL IV SCH (08:41)
[2022-06-27] MEDS: ASPIRIN E.C. 81 MG (ECOTRIN) TAB PO SCH (08:41)
[2022-06-27] MEDS: VITAMIN D3 125 MCG (5,000 UNITS) CAPSULE PO SCH (08:41)
[2022-06-27] MEDS: ISOSORBIDE MONONITRATE 30 MG (IMDUR) TAB PO SCH (08:41)
[2022-06-27] MEDS: DRONEDARONE 400 MG TABLET PO SCH ×2 (08:41→21:33)
[2022-06-27] MEDS: MAGNESIUM OXIDE (MAG-OX)400 MG TAB PO SCH (08:41)
[2022-06-27] MEDS: FUROSEMIDE 40 MG (LASIX) TAB PO SCH (08:41)
[2022-06-27] MEDS: CLOPIDOGREL 75 MG (PLAVIX) TABLET PO SCH (08:42)
[2022-06-27] MEDS: PANTOPRAZOLE 40 MG (PROTONIX) TAB PO SCH (08:42)
[2022-06-27] MEDS: [UNRECOGNIZED DRUG - REMARK] PO SCH ×2 (08:43→21:33)
--- NOTE | 2022-06-27 09:08 | Cardiology Progress Note ---
Subjective Date Seen by Provider: Jun 27, 2022 Time Seen by Provider: 08:05 Subjective/Events-last exam Patient with PT, no new complaint. Denies any chest pain. Objective-Cardiology Exam Last Set of Vital Signs Vital Signs 06/26/22 06/27/22 07:47 07:46 Temp 36.8 Pulse 69 Resp 18 B/P (MAP) 119/58 (78) Pulse Ox 94 O2 Delivery Nasal Cannula O2 Flow Rate 2.00 FiO2 28 General: Alert, Oriented X3 HEENT: Atraumatic Neck: Supple Lungs: Clear to Auscultation, Normal Air Movement Heart: Regular Rate, Normal S1, Normal S2 Abdomen: Normal Bowel Sounds, Soft Skin: No Rashes, No Significant Lesion Neuro: Normal Speech Psych/Mental Status: Mental Status NL, Mood NL A/P-Cardiology Admission Diagnosis GI bleed CAD CHF PAF Assessment/Plan Anemia, most probably GI loss on top of anemia of chronic disease. s/p transfusion. H/H stable, continue to monitor Dr. Bedolla following, patient will need to have capsule endoscopy as outpatient. Will continue to hold Xarelto at this time. Chest pain, resembling angina, improved after blood transfusion. Paroxysmal atrial fibrillation/flutter, Patient was treated with amiodarone in the past and it was stopped due to the underlying lung disease and shortness of breath, patient is oxygen dependent Treated with Multaq and it was stopped due to the congestive heart failure She was intolerant to higher dose of beta-blockers due to bradycardia and syncope Patient has failed attempt for cardioversion on October 06, 2021, referred to Dr. Miller at , underwent ablation in October 2021. Has occasional breakthrough episodes of afib. Maintained on Multaq. NIKKI was done on October 06, 2021 showing dilated left atrium and left atrial appendage with no clot or thrombus, normal LV size, EF 60%, mild MR, aortic valve sclerosis with no stenosis. Failed attempt for cardioversion Coronary artery disease, history of CABG 3 done in 2006. Cardiac catheterization was done in February 2014 showing patent LUNA to the LAD, 60 percent stenosis at the distal portion of the LUNA. The proximal LAD has 90 percent stenosis with good flow supply to the LAD system. The vein graft to the obtuse marginal branch is patent with excellent flow distally and the vein graft to the right coronary artery is patent with excellent flow distally. Normal left ventricular size and systolic function. Cardiac catheterization done January 02, 2021 showing Patent LUNA to LAd, VG to the RCA. VG to the obtuse marginal branch has mod stenosis at an area followed by aneurysmal dilatation. Occluded prox circumflex artery corrected by the vein graft. Occluded prox RCA corrected by the VG. Right PDA was small vessel disease distally. Severe mid LAd stenosis corrected with the LUNA with dual supply to th e LAD territory. Cardiac catheterization done on June 06, 2022 with stenting of the vein graft to the circumflex artery using skypoint stent 3.5 x 23 mm, patent LUNA to LAD and vein graft to the right coronary artery with severe [place] coronary artery disease, small vessel disease. Plavix and ASA restarted. History of frequent premature ventricular contractions. Patient has episodes of frequent paroxysmal atrial tachycardia with wide-complex tachycardia, sees Dr. Miller at [facility]. She is status post Linq implantation that has been followed by Dr. Miller. Hypertension, controlled. Continue to monitor blood pressure Hyperlipidemia, continue to monitor. History of carotid stenosis. Left carotid endarterectomy. Last ultrasound report showed moderate disease in the right carotid artery, more significant disease on the left side. Followed and managed by heart and vascular care. Continue to monitor. History of dizziness and lightheadedness. Reporting improvement. Continue to monitor. COPD, managment per Dr. Menjivar Pulmonary hypertension. Dr. Menjivar recommending RHC, planning for LHC and RHC next month. History of renal failure Hypothyroidism followed and managed by primary care physician. Chronic renal insufficiency, patient is following with Dr. Erica Meza Supervisory-Addendum Brief Supervisory Addendum Participated in pt care: history, MDM, physical Personally performed: exam, history, MDM Care discussed with: MARTINE Results interpretation: Verified all documentation Notes: Patient was seen and evaluated with Beata, examination performed, management plan was discussed, agree with the current scribed note, I made few changes to the note using Italic font Patient was seen at bedside, laying down comfortably, feeling better Continue to monitor H&H, monitor blood pressure Continue to hold Xarelto for now, continue on aspirin and Plavix BEATA PRATER Jun 27, 2022 09:08 DARSHAN SEGUNDO MD Jun 27, 2022 16:48
--- NOTE | 2022-06-27 09:50 | Occupational Ther Daily Note ---
OT Current Status-Daily Note Subjective Pt in recliner, agreeable to OT tx. Mental Status/Objective Attachments: Oxygen (2L) ADL-Treatment Therapy Code Descriptions/Definitions Functional [place] Measure: 0=Not Assessed/NA 4=Minimal Assistance 1=Total Assistance 5=Supervision or Setup 2=Maximal Assistance 6=Modified [place] 3=Moderate Assistance 7=Complete IndependenceSCALE: Activities may be completed with or without assistive devices. 3-Yryowaujfs-oebddpl completes the activity by him/herself with no assistance from a helper. 5-Set-up or Clean-up Assistance-helper sets up or cleans up; patient completes activity. [place] assists only prior to or following the activity. 4-Supervision or Touching Assistance-helper provides verbal cues and/or touching/steadying and/or contact guard assistance as patient completes activi ty. Assistance may be provided throughout the activity or intermittently. 3-Partial/Moderate Assistance-helper does LESS THAN HALF the effort. [place] lifts, holds or supports trunk or limbs, but provides less than half the effort. 2-Substantial/Maximal Assistance-helper does MORE THAN HALF the effort. [place] lifts or holds trunk or limbs and provides more than half the effort. 9-Trnoswsnc-eyxvby does ALL the effort. Patient does none of the effort to complete the activity. Or, the assistance of 2 or more helpers is required for the patient to complete the activity. If activity was not attempted, code reason: 7-Patient Refused. 9-Not Applicable-not attempted and the patient did not perform the activity before the current illness, exacerbation or injury. 10-Not Attempted due to Environmental Limitations-(lack of equipment, weather restraints, etc.). 88-Not Attempted due to Medical Conditions or Safety Concerns. Eating (QC): 6 Oral Hygiene (QC): 6 Shower/Bathe Self (QC): 5 (set up only to cover IV, otherwise independent) Upper Body Dressing (QC): 6 Lower Body Dressing (QC): 6 On/Off Footwear: 6 Toileting Hygiene (QC): 6 Toilet Transfer (QC): 6 Other Treatment Pt in recliner, gathered clothing and ADL supplies, then took items to large shower room. Pt able to manage portable O2 tank independently. Pt stepped into bath tub using GBs, pt completed shower seated on SC, then dried off and got dressed. Pt returned to her room, independent with managing O2 line/tank. Pt took seated rest break at recliner, then completed grooming tasks in her room independently, rest breaks as needed. Pt then performed functional mobility to therapy gym, independent with O2 tank. In order to increase BUE strength, fine motor coordination, and activity tolerance, pt completed nut/bolt block, 1lb wrist weights BUEs. Pt use BUEs to manipulate nuts/bolts, removing from board, turning around and placing them back onto the board. Pt then completed pulleys x10 mins in order to increase BUE shoulder ROM and decrease pain from rotator cuff issues. Pt returned to her room, independently, managing O2 tank. Post tx, pt at EOB, ad chelsea in room, all needs met. Education OT Patient Education: Correct positioning, Energy conservation, Modified ADL techniques, Progress toward Goal/Update tx plan, Purpose of tx/functional activities, Rehab process Teaching Recipient: Patient Teaching Methods: Discussion Response to Teaching: Verbalize Understanding OT Product Safety Technical Assistant Goals Product Safety Technical Assistant Goals Time Frame: Jul 13, 2022 Eating (QC): 6 Oral Hygiene (QC): 6 Toileting Hygiene (QC): 6 Shower/Bathe Self (QC): 6 Upper Body Dressing (QC): 6 Lower Body Dressing (QC): 6 On/Off Footwear (QC): 6 Additional Goals: 1-Demonstrate ADL Tasks, 2-Verbalize Understanding, 3- ImproveStrength/Yaima 1=Demonstrate adherence to instructed precautions during ADL tasks. 2=Patient will verbalize/demonstrate understanding of assistive devices/modifications for ADL. 3=Patient will improve strength/tolerance for activity to enable patient to perform ADL's. OT Education/Plan Problem List/Assessment Assessment: Decreased Activ Tolerance, Decreased UE Strength, Impaired I ADL's Pt is currently at PLOF with all ADLS, independent to gather clothing/ADL items and she was able to step in/out of bathtub using GBs. She lives at home with her spouse who is able to assist with I/ADLs if/when needed. Even though pt is independent and at PLOF, per physician and rehab plan, pt is currently on ARU for skilled therapy prior to returning home at discharge, thus with continue receiving OT services. Discharge Recommendations Plan/Recommendations: Continue POC Treatment Plan/Plan of Care Patient would benefit from OT for education, treatment and training to promote independence in ADL's, mobility, safety and/or upper extremity function for ADL's. Plan of Care: ADL Retraining, Functional Mobility, Group Exercise/Act as Ind, UE Funct Exercise/Act Treatment Duration: Jul 13, 2022 Frequency: At least 5 of 7 days/Wk (IRF) Estimated Hrs Per Day: 1.5 hours per day Agreement: Yes Rehab Potential: Fair Time/GCodes Start Time: 09:00 Stop Time: 10:30 Total Time Billed (hr/min): 90 Billed Treatment Time 1, ADL 4 (60'), EX (15'), FA (15') MOHAMUD FALL OT Jun 27, 2022 09:50
--- NOTE | 2022-06-27 10:04 | Physical Therapy Daily Note ---
PT Daily Note-Current Subjective Pt sitting in recliner upon arrival. Pt agrees to PT. Pt and REPRINT SORTER agree that focus will be on activity tolerance since pt is independent with activities. Pain Location: No Pain Reported Mental Status Patient Orientation: Person, Place, Time, Situation Attachments: Oxygen (2L) Transfers SCALE: Activities may be completed with or without assistive devices. 0-Iiiyxwyuid-wmewjao completes the activity by him/herself with no assistance from a helper. 5-Set-up or Clean-up Assistance-helper sets up or cleans up; patient completes activity. [place] assists only prior to or following the activity. 4-Supervision or Touching Assistance-helper provides verbal cues and/or touching/steadying and/or contact guard assistance as patient completes activity. Assistance may be provided throughout the activity or intermittently. 3-Partial/Moderate Assistance-helper does LESS THAN HALF the effort. [place] lifts, holds or supports trunk or limbs, but provides less than half the effort. 2-Substantial/Maximal Assistance-helper does MORE THAN HALF the effort. [place] lifts or holds trunk or limbs and provides more than half the effort. 7-Qkwaeepwz-oxodrh does ALL the effort. Patient does none of the effort to complete the activity. Or, the assistance of 2 or more helpers is required for the patient to complete the activity. If activity was not attempted, code reason: 7-Patient Refused. 9-Not Applicable-not attempted and the patient did not perform the activity before the current illness, exacerbation or injury. 10-Not Attempted due to Environmental Limitations-(lack of equipment, weather restraints, etc.). 88-Not Attempted due to Medical Conditions or Safety Concerns. Sit to Stand (QC): 6 Weight Bearing Full Weight Bearing Full Weight Bearing Gait Training Does the Patient Walk?: Yes Distance: 500', 150' Walk 10 feet (QC): 6 Walk 50 ft with 2 Turns(QC): 6 Walk 150 ft (QC): 6 Gait Assistive Device: None Wheelchair Training Does the Pt Use a Wheelchair?: No Exercises NuStep Minutes: 15 NuStep Workload: 6 Treatments TF to standing and takes extended amb. with several RB as needed for fatigue. Pt uses NuStep then takes short RB. Pt amb. in hallway before returning to room to use BR and rest shortly before OT arrives. All needs met, call light in hand. Assessment Current Status: Good Progress Pt continues to need occasional RB for fatigue. PT [facility] Goals Market Relationship Manager Goals PT [facility] Goals Time Frame: Jul 16, 2022 Roll Left & Right (QC): 6 Sit to Lying (QC): 6 Lying-Sitting on Side/Bed(QC): 6 Sit to Stand (QC): 6 Chair/Kwf-uw-Wfdeb Xfer(QC): 6 Toilet Transfer (QC): 6 Car Transfer (QC): 6 Does the Patient Walk: Yes Walk 10 feet (QC): 6 Walk 50ft with 2 Turns (QC): 6 Walk 150 ft (QC): 6 Walking 10ft on Uneven Surface: 6 1 Step (curb) (QC): 6 4 Steps (QC): 6 12 Steps (QC): 6 Picking up an Object (QC): 6 Wheel 50 feet with 2 turns (QC: 9 Wheel 150 feet: 9 PT Plan Problem List Problem List: Activity Tolerance Treatment/Plan Treatment Plan: Continue Plan of Care Treatment Plan: Education, Functional Activity Yaima, Functional Strength, Group Therapy, Gait, Safety, Therapeutic Exercise, Transfers Treatment Duration: Jul 16, 2022 Frequency: At least 5 of 7 days/Wk (IRF) Estimated Hrs Per Day: 1.5 hours per day Patient and/or Family Agrees t: Yes Time/GCodes Time In: 800 Time Out: 900 Total Billed Treatment Time: 60 Total Billed Treatment 1, GT x2 (30m), EX (15m) & FA (15m) KIRK AGUILAR REPRINT SORTER Jun 27, 2022 10:04
[2022-06-27] MEDS: polyethylene glycoL POWDER 17 GM (MIRALAX) PACK PO SCH ×2 (10:52→21:30)
[2022-06-27] MEDS: SENNA W/DOCUSATE (SENOKOT S) TABLET PO SCH ×2 (11:17→21:33)
[2022-06-27] MEDS: DOCUSATE SODIUM 100 MG (COLACE) CAP PO SCH ×2 (11:17→21:32)
[2022-06-27] MEDS: SENNOSIDES 8.6 MG (SENOKOT) TAB PO SCH ×2 (11:19→21:30)
--- NOTE | 2022-06-27 14:02 | Physical Therapy Daily Note ---
PT Daily Note-Current Subjective Pt sitting in recliner upon arrival. Pt agrees to PT. Pain Location: No Pain Reported Mental Status Patient Orientation: Person, Place, Time, Situation Attachments: Oxygen (2L) Transfers SCALE: Activities may be completed with or without assistive devices. 0-Skfstzpwwl-tkwqdgy completes the activity by him/herself with no assistance from a helper. 5-Set-up or Clean-up Assistance-helper sets up or cleans up; patient completes activity. [place] assists only prior to or following the activity. 4-Supervision or Touching Assistance-helper provides verbal cues and/or touching/steadying and/or contact guard assistance as patient completes activity. Assistance may be provided throughout the activity or intermittently. 3-Partial/Moderate Assistance-helper does LESS THAN HALF the effort. [place] lifts, holds or supports trunk or limbs, but provides less than half the effort. 2-Substantial/Maximal Assistance-helper does MORE THAN HALF the effort. [place] lifts or holds trunk or limbs and provides more than half the effort. 1-Zcukhpkaz-sszyll does ALL the effort. Patient does none of the effort to complete the activity. Or, the assistance of 2 or more helpers is required for the patient to complete the activity. If activity was not attempted, code reason: 7-Patient Refused. 9-Not Applicable-not attempted and the patient did not perform the activity before the current illness, exacerbation or injury. 10-Not Attempted due to Environmental Limitations-(lack of equipment, weather restraints, etc.). 88-Not Attempted due to Medical Conditions or Safety Concerns. Sit to Stand (QC): 6 Weight Bearing Full Weight Bearing Full Weight Bearing Gait Training Does the Patient Walk?: Yes Distance: 500', 150' Walk 10 feet (QC): 6 Walk 50 ft with 2 Turns(QC): 6 Walk 150 ft (QC): 6 Gait Assistive Device: None Wheelchair Training Does the Pt Use a Wheelchair?: No Stair Training Stair Training: Handrails/: 1 handrail #of Steps: 6 1 Step (curb) (QC): 6 4 Steps (QC): 6 Stairs: Pattern: Step to Treatments Pt TF to standing and amb. in hallway, taking fewer RB than morning tx. Pt completes stairs trying with both hand rails, one hand rail & w/o hand rail. Pt reports feeling more comfort and safe w/one hand rail. Pt returns to room to rest at EOB. All needs met, call light in hand. Assessment Current Status: Good Progress Pt is able to walk same distance with decreased need for RB. PT Assisted Goals Business Transformation Consultant Goals PT Assisted Goals Time Frame: Jul 16, 2022 Roll Left & Right (QC): 6 Sit to Lying (QC): 6 Lying-Sitting on Side/Bed(QC): 6 Sit to Stand (QC): 6 Chair/Rue-jv-Tpcrx Xfer(QC): 6 Toilet Transfer (QC): 6 Car Transfer (QC): 6 Does the Patient Walk: Yes Walk 10 feet (QC): 6 Walk 50ft with 2 Turns (QC): 6 Walk 150 ft (QC): 6 Walking 10ft on Uneven Surface: 6 1 Step (curb) (QC): 6 4 Steps (QC): 6 12 Steps (QC): 6 Picking up an Object (QC): 6 Wheel 50 feet with 2 turns (QC: 9 Wheel 150 feet: 9 PT Plan Problem List Problem List: Activity Tolerance Treatment/Plan Treatment Plan: Continue Plan of Care Treatment Plan: Education, Functional Activity Yaima, Functional Strength, Group Therapy, Gait, Safety, Therapeutic Exercise, Transfers Treatment Duration: Jul 16, 2022 Frequency: At least 5 of 7 days/Wk (IRF) Estimated Hrs Per Day: 1.5 hours per day Patient and/or Family Agrees t: Yes Safety Risks/Education Patient Education: Steps, Safety Issues Teaching Recipient: Patient Teaching Methods: Discussion Response to Teaching: Verbalize Understanding Time/GCodes Time In: 1300 Time Out: 1330 Total Billed Treatment Time: 30 Total Billed Treatment 1, GT x2 (30m) KIRK AGUILAR [employer] Jun 27, 2022 14:02
[2022-06-27 19:52] VITALS: BP 108/55
[2022-06-27] MEDS ORDERED: PATIENT MAY USE OWN MED,SINGLE MED PO SCH (21:30)
[2022-06-27] MEDS: DULoxetine 30 MG (CYMBALTA) CAP PO SCH (21:32)
[2022-06-27] MEDS: ROSUVASTATIN 20 MG (CRESTOR) TABLET PO SCH (21:32)
[2022-06-27] MEDS: MONTELUKAST 10 MG (SINGULAIR) TAB PO SCH (21:33)
--- NOTE | 2022-06-28 06:10 | PM&R Progress Note ---
Subjective HPI/CC On Admission Date Seen by Provider: Jun 28, 2022 Time Seen by Provider: 11:00 Subjective/Events-last exam 06/28/2022: Patient doing well Capsule endoscopy appointment will be made with Dr. Hand Patient will go home on Plavix and aspirin and hold Xarelto Supportive care will continue Will check labs in 1 week and weekly after that 06/27/2022: Doing well Venofer last dose Saturday No pain reported Capsule endoscopy will need to be arranged 06/26/2022: Doing well No pain reported No falls Iron infusions tolerated 06/25/2022: Venofer today Capsule endoscopy will be done at [place] Monitoring closely Breathing well 06/24/2022: Patient doing well Moving to independent room Tolerating iron will get another dose tomorrow Vitamin B12 supplement maintained Check meds and labs Review of Systems General: Fatigue, Malaise Objective Exam Vital Signs Vital Signs Date Time Temp Pulse Resp B/P (MAP) Pulse Ox O2 Delivery O2 Flow Rate FiO2 06/28/22 21:00 100 Nasal Cannula 2.00 06/28/22 19:54 35.7 68 20 134/74 (94) 06/26/22 07:47 28 Capillary Refill : General Appearance: No Apparent Distress, WD/WN, Anxious, Chronically ill HEENT: PERRL/EOMI, Normal ENT Inspection, Pharynx Normal Neck: Full Range of Motion, Normal Inspection, Non Tender, Supple, Carotid Bruit Respiratory: Chest Non Tender, Lungs Clear, Normal Breath Sounds, No Accessory Muscle Use, No Respiratory Distress, Decreased Breath Sounds Cardiovascular: Regular Rate, Rhythm, No Edema, No Gallop, No JVD, No Murmur, Normal Peripheral Pulses Gastrointestinal: Normal Bowel Sounds, No Organomegaly, No Pulsatile Mass, Non Tender, Soft Back: Normal Inspection, No CVA Tenderness, No Vertebral Tenderness Extremity: Normal Capillary Refill, Normal Inspection, Normal Range of Motion, Non Tender, No Calf Tenderness, No Pedal Edema Neurologic/Psychiatric: Alert, Oriented x3, No Motor/Sensory Deficits, Normal Mood/Affect, Motor Weakness (generalized) Skin: Normal Color, Warm/Dry Lymphatic: No Adenopathy Results/Procedures Lab Laboratory Tests 06/28/22 07:08 Patient resulted labs reviewed. FIM Transfers Therapy Code Descriptions/Definitions Functional [place] Measure: 0=Not Assessed/NA 4=Minimal Assistance 1=Total Assistance 5=Supervision or Setup 2=Maximal Assistance 6=Modified [place] 3=Moderate Assistance 7=Complete IndependenceSCALE: Activities may be completed with or without assistive devices. 0-Vmrxmktujx-kvjpyys completes the activity by him/herself with no assistance from a helper. 5-Set-up or Clean-up Assistance-helper sets up or cleans up; patient completes activity. [place] assists only prior to or following the activity. 4-Supervision or Touching Assistance-helper provides verbal cues and/or touching/steadying and/or contact guard assistance as patient completes activity. Assistance may be provided throughout the activity or intermittently. 3-Partial/Moderate Assistance-helper does LESS THAN HALF the effort. [place] lifts, holds or supports trunk or limbs, but provides less than half the effort. 2-Substantial/Maximal Assistance-helper does MORE THAN HALF the effort. [place] lifts or holds trunk or limbs and provides more than half the effort. 4-Stfdxxuqp-cbwlri does ALL the effort. Patient does none of the effort to complete the activity. Or, the assistance of 2 or more helpers is required for the patient to complete the activity. If activity was not attempted, code reason: 7-Patient Refused. 9-Not Applicable-not attempted and the patient did not perform the activity before the current illness, exacerbation or injury. 10-Not Attempted due to Environmental Limitations-(lack of equipment, weather restraints, etc.). 88-Not Attempted due to Medical Conditions or Safety Concerns. Roll Left to Right (QC): 6 Sit to Lying (QC): 6 Sit to Stand (QC): 6 Chair/Ffa-dr-Ecvoe Xfer(QC): 6 Car Transfer (QC): 6 Gait Training Does the Patient Walk?: Yes Distance: 500', 150' Walk 10 feet (QC): 6 Walk 50 ft with 2 Turns(QC): 6 Walk 150 ft (QC): 6 Walking 10ft/uneven surface-QC: 6 Gait Assistive Device: None Wheelchair Training Does the Pt Use a Wheelchair?: No Wheel 50 ft with 2 turns (QC): 9 Wheel 150 ft (QC): 9 Stair Training Stair Training: Handrails/: 1 handrail #of Steps: 6 1 Step (curb) (QC): 6 4 Steps (QC): 6 12 Steps (QC): 88 Stairs: Pattern: Step to Balance Picking up an Object (QC): 4 (SBA, has difficulty reaching all the way to the floor, would probably perform better with a reinforced concrete inspector) ADL-Treatment Eating (QC): 6 Oral Hygiene (QC): 6 Shower/Bathe Self (QC): 5 (set up only to cover IV, otherwise independent) Upper Body Dressing (QC): 6 Lower Body Dressing (QC): 6 On/Off Footwear (QC): 6 Toileting Hygiene (QC): 6 Toilet Transfer (QC): 6 Assessment/Plan Assessment and Plan Assess & Plan/Chief Complaint Assessment: Debility Anemia s/p 3 units of blood in ICU with recent negative scopes holding ASA and OAC restarted Plavix PAF Angina CAD recent stent in vein graft CHF diastolic type CABG 2006 HTN hx HLP PVD Carotid stenosis s/p LCEA Pulmonary HTN upcoming heart cath in near future COPD O2 dependent CKD Hypothyroidism Acute hypokalemia Plan: IRF protocol Monitor closely PT OT Home meds Hold OAC Hold ASA for now 06/24/2022: IV iron infusions Supportive care 06/25/2022: Capsule endoscopy Monitor closely 06/26/2022: Monitor closely DC Tely 06/27/2022: DC Saturday Venofer 06/28/2022: Discharge home Saturday (1) Severe anemia Status: Acute (2) CAD (coronary artery disease) (3) Atrial fibrillation (4) Dyspnea on minimal exertion Status: Acute AYUSH SEXTON DO Jun 28, 2022 06:10
[2022-06-28] MEDS: CYANOCOBALAMIN 1,000 MCG (VITAMIN B-12) TABLET PO SCH (06:12)
[2022-06-28] MEDS: KCL 10 MEQ TAB (MICRO K) PO SCH ×2 (06:12)
[2022-06-28] MEDS: LEVOTHYROXINE 112 MCG (LEVOTHROID) TAB PO SCH (06:12)
[2022-06-28 07:14] LABS: HEMOGLOBIN 8.3 g/dL (11.5-16.0)
[2022-06-28 07:22] LABS: POTASSIUM 4.1 MMOL/L (3.6-5.0)
[2022-06-28 07:23] LABS: CALCIUM 9.4 MG/DL (8.5-10.1)
[2022-06-28 07:27] LABS: CREATININE SERUM 1.35 MG/DL (0.60-1.30)
[2022-06-28 07:58] VITALS: BP 103/66
--- NOTE | 2022-06-28 08:45 | Cardiology Progress Note ---
Subjective Date Seen by Provider: Jun 28, 2022 Time Seen by Provider: 08:44 Subjective/Events-last exam Patient was seen at bedside, laying down comfortably, feeling well Denies any chest pain or shortness of breath. Still having generalized fatigue Review of Systems General: No Chills, No Night Sweats; Fatigue; No Malaise, No Appetite, No Other HEENT: No Head Aches, No Visual Changes, No Eye Pain, No Ear Pain, No Dysphasia, No Sinus Congestion, No Post Nasal Drip, No Sore Throat, No Other Pulmonary: No Dyspnea, No Cough, No Pleuritic Chest Pain, No Other Cardiovascular: No: Chest Pain, Palpitations, Orthopnea, Paroxysmal Noc. Dyspnea, Edema, Lt Headedness, Other Objective-Cardiology Exam Last Set of Vital Signs Vital Signs 06/26/22 06/28/22 07:47 07:58 Temp 35.8 Pulse 60 Resp 16 B/P (MAP) 103/66 (78) Pulse Ox 98 O2 Delivery Nasal Cannula O2 Flow Rate 2.00 FiO2 28 General: Alert, Oriented X3 HEENT: Atraumatic Neck: Supple Lungs: Clear to Auscultation, Normal Air Movement Heart: Regular Rate, Normal S1, Normal S2 Abdomen: Normal Bowel Sounds, Soft Skin: No Rashes, No Significant Lesion Neuro: Normal Speech Psych/Mental Status: Mental Status NL, Mood NL Results Lab Laboratory Tests 06/28/22 07:08 A/P-Cardiology Admission Diagnosis GI bleed CAD CHF PAF Assessment/Plan Anemia, most probably GI loss on top of anemia of chronic disease. s/p transfusion. H/H stable, continue to monitor Dr. Bedolla following, patient will need to have capsule endoscopy as outpatient. Will continue to hold Xarelto at this time. Chest pain, resembling angina, improved after blood transfusion. Continue to monitor, no changes are recommended at this point. Paroxysmal atrial fibrillation/flutter, Patient was treated with amiodarone in the past and it was stopped due to the underlying lung disease and shortness of breath, patient is oxygen dependent Treated with Multaq and it was stopped due to the congestive heart failure She was intolerant to higher dose of beta-blockers due to bradycardia and syncope Patient has failed attempt for cardioversion on October 06, 2021, referred to Dr. Miller at , underwent ablation in October 2021. Has occasional breakthrough episodes of afib. Maintained on Multaq. NIKKI was done on October 06, 2021 showing dilated left atrium and left atrial appendage with no clot or thrombus, normal LV size, EF 60%, mild MR, aortic valve sclerosis with no stenosis. Failed attempt for cardioversion Coronary artery disease, history of CABG 3 done in 2006. Cardiac catheterization was done in February 2014 showing patent LUNA to the LAD, 60 percent stenosis at the distal portion of the LUNA. The proximal LAD has 90 percent stenosis with good flow supply to the LAD system. The vein graft to the obtuse marginal branch is patent with excellent flow distally and the vein graft to the right coronary artery is patent with excellent flow distally. Normal left ventricular size and systolic function. Cardiac catheterization done January 02, 2021 showing Patent LUNA to LAd, VG to the RCA. VG to the obtuse marginal branch has mod stenosis at an area followed by aneurysmal dilatation. Occluded prox circumflex artery corrected by the vein graft. Occluded prox RCA corrected by the VG. Right PDA was small vessel disease distally. Severe mid LAd stenosis corrected with the LUNA with dual supply to the LAD territory. Cardiac catheterization done on June 06, 2022 with stenting of the vein graft to the circumflex artery using skypoint stent 3.5 x 23 mm, patent LUNA to LAD and vein graft to the right coronary artery with severe [place] coronary artery disease, small vessel disease. Plavix and ASA restarted, continue to monitor closely. History of frequent premature ventricular contractions. Patient has episodes of frequent paroxysmal atrial tachycardia with wide-complex tachycardia, sees Dr. Miller at [facility]. She is status post Linq implantation that has been followed by Dr. Miller. Hypertension, controlled. Continue to monitor blood pressure Hyperlipidemia, continue to monitor. History of carotid stenosis. Left carotid endarterectomy. Last ultrasound report showed moderate disease in the right carotid artery, more significant disease on the left side. Followed and managed by heart and vascular care. Continue to monitor. History of dizziness and lightheadedness. Reporting improvement. Continue to monitor. COPD, managment per Dr. Menjivar Pulmonary hypertension. Dr. Menjivar recommending RHC, planning for LHC and RHC next month. History of renal failure Hypothyroidism followed and managed by primary care physician. Chronic renal insufficiency, patient is following with DARSHAN Gracia MD Jun 28, 2022 08:45
[2022-06-28] MEDS: SENNOSIDES 8.6 MG (SENOKOT) TAB PO SCH ×2 (09:00→20:33)
[2022-06-28] MEDS ORDERED: NON-FORMULARY MEDICATION 1 EA EA IH SCH (09:00)
[2022-06-28] MEDS: ISOSORBIDE MONONITRATE 30 MG (IMDUR) TAB PO SCH (09:16)
[2022-06-28] MEDS: CLOPIDOGREL 75 MG (PLAVIX) TABLET PO SCH (09:16)
[2022-06-28] MEDS: ASPIRIN E.C. 81 MG (ECOTRIN) TAB PO SCH (09:16)
[2022-06-28] MEDS: DRONEDARONE 400 MG TABLET PO SCH ×2 (09:16→20:29)
[2022-06-28] MEDS: VITAMIN D3 125 MCG (5,000 UNITS) CAPSULE PO SCH (09:16)
[2022-06-28] MEDS: FUROSEMIDE 40 MG (LASIX) TAB PO SCH (09:16)
[2022-06-28] MEDS: ALLOPURINOL 300 MG (ZYLOPRIM) TAB PO SCH (09:17)
[2022-06-28] MEDS: MAGNESIUM OXIDE (MAG-OX)400 MG TAB PO SCH (09:17)
--- NOTE | 2022-06-28 09:17 | Occupational Ther Daily Note ---
OT Current Status-Daily Note Subjective Pt in bed, agreeable to OT Tx. Mental Status/Objective Attachments: Oxygen (2L) ADL-Treatment Therapy Code Descriptions/Definitions Functional [place] Measure: 0=Not Assessed/NA 4=Minimal Assistance 1=Total Assistance 5=Supervision or Setup 2=Maximal Assistance 6=Modified [place] 3=Moderate Assistance 7=Complete IndependenceSCALE: Activities may be completed with or without assistive devices. 0-Ascmlpeqwu-wiilwaa completes the activity by him/herself with no assistance from a helper. 5-Set-up or Clean-up Assistance-helper sets up or cleans up; patient completes activity. [place] assists only prior to or following the activity. 4-Supervision or Touching Assistance-helper provides verbal cues and/or touching/steadying and/or contact guard assistance as patient completes activity. Assistance may be provided throughout the activity or intermittently. 3-Partial/Moderate Assistance-helper does LESS THAN HALF the effort. [place] lifts, holds or supports trunk or limbs, but provides less than half the effort. 2-Substantial/Maximal Assistance-helper does MORE THAN HALF the effort. [place] lifts or holds trunk or limbs and provides more than half the effort. 6-Evpqvuqwi-nmqyss does ALL the effort. Patient does none of the effort to complete the activity. Or, the assistance of 2 or more helpers is required for the patient to complete the activity. If activity was not attempted, code reason: 7-Patient Refused. 9-Not Applicable-not attempted and the patient did not perform the activity before the current illness, exacerbation or injury. 10-Not Attempted due to Environmental Limitations-(lack of equipment, weather restraints, etc.). 88-Not Attempted due to Medical Conditions or Safety Concerns. Other Treatment Pt in bed, transferred supine to sit EOB independently. Pt transferrred O2 to portable O2 tank independently, then performed functional mobility to therapy gym. OT tx focused on increasing BUE strength and activity tolerance. Pt completed nut/bolt task, 1lb wrist weights BUEs, completing 2x16 total. Pt hyperverbal during tx, requiring redirection to task, frequent rest breaks. Throughout tx, pt educated on energy conservation techniques for home. Pt returned to her room, independently managing O2 tank. Post tx, pt EOB, call light in reach and all needs met. Education OT Patient Education: Correct positioning, Energy conservation, Exercise program, Modified ADL techniques, Progress toward Goal/Update tx plan, Purpose of tx/functional activities, Rehab process Teaching Recipient: Patient Teaching Methods: Discussion Response to Teaching: Verbalize Understanding OT Heavy Mobile Equipment Operator Goals Heavy Mobile Equipment Operator Goals Time Frame: Jul 13, 2022 Eating (QC): 6 Oral Hygiene (QC): 6 Toileting Hygiene (QC): 6 Shower/Bathe Self (QC): 6 Upper Body Dressing (QC): 6 Lower Body Dressing (QC): 6 On/Off Footwear (QC): 6 Additional Goals: 1-Demonstrate ADL Tasks, 2-Verbalize Understanding, 3- ImproveStrength/Yaima 1=Demonstrate adherence to instructed precautions during ADL tasks. 2=Patient will verbalize/demonstrate understanding of assistive devices/modifications for ADL. 3=Patient will improve strength/tolerance for activity to enable patient to perform ADL's. OT Education/Plan Problem List/Assessment Assessment: Decreased Activ Tolerance Pt is currently at OF with all ADLS, independent to gather clothing/ADL items and she was able to step in/out of bathtub using GBs. She lives at home with her spouse who is able to assist with I/ADLs if/when needed. Even though pt is independent and at PLOF, per physician and rehab plan, pt is currently on ARU for skilled therapy prior to returning home at discharge, thus with continue receiving OT services. Discharge Recommendations Plan/Recommendations: Continue POC Treatment Plan/Plan of Care Patient would benefit from OT for education, treatment and training to promote independence in ADL's, mobility, safety and/or upper extremity function for ADL's. Plan of Care: ADL Retraining, Functional Mobility, Group Exercise/Act as Ind, UE Funct Exercise/Act Treatment Duration: Jul 13, 2022 Frequency: At least 5 of 7 days/Wk (IRF) Estimated Hrs Per Day: 1.5 hours per day Agreement: Yes Rehab Potential: Fair Time/GCodes Start Time: 09:00 Stop Time: 10:00 Total Time Billed (hr/min): 60 Billed Treatment Time 1, FA 4 (60') MOHAMUD FALL OT Jun 28, 2022 09:17
[2022-06-28] MEDS: PANTOPRAZOLE 40 MG (PROTONIX) TAB PO SCH (09:19)
[2022-06-28] MEDS: [UNRECOGNIZED DRUG - REMARK] PO SCH ×2 (09:21→20:30)
[2022-06-28] MEDS: SENNA W/DOCUSATE (SENOKOT S) TABLET PO SCH ×2 (09:32→20:29)
[2022-06-28] MEDS: DOCUSATE SODIUM 100 MG (COLACE) CAP PO SCH ×2 (09:32→20:29)
[2022-06-28] MEDS: polyethylene glycoL POWDER 17 GM (MIRALAX) PACK PO SCH ×2 (09:32→20:33)
--- NOTE | 2022-06-28 11:01 | Physical Therapy Daily Note ---
PT Daily Note-Current Subjective Pt. agrees to Rx and states repeatedly that she is indep and her only issue is some SOB that requires rest at times Pain Location: No Pain Reported Mental Status Patient Orientation: Normal For Age Attachments: Oxygen (2L) Transfers SCALE: Activities may be completed with or without assistive devices. 5-Lceoalwaed-aaawsyn completes the activity by him/herself with no assistance from a helper. 5-Set-up or Clean-up Assistance-helper sets up or cleans up; patient completes activity. [place] assists only prior to or following the activity. 4-Supervision or Touching Assistance-helper provides verbal cues and/or touching/steadying and/or contact guard assistance as patient completes a ctivity. Assistance may be provided throughout the activity or intermittently. 3-Partial/Moderate Assistance-helper does LESS THAN HALF the effort. [place] lifts, holds or supports trunk or limbs, but provides less than half the effort. 2-Substantial/Maximal Assistance-helper does MORE THAN HALF the effort. [place] lifts or holds trunk or limbs and provides more than half the effort. 4-Rodugtqxl-qpemvl does ALL the effort. Patient does none of the effort to complete the activity. Or, the assistance of 2 or more helpers is required for the patient to complete the activity. If activity was not attempted, code reason: 7-Patient Refused. 9-Not Applicable-not attempted and the patient did not perform the activity before the current illness, exacerbation or injury. 10-Not Attempted due to Environmental Limitations-(lack of equipment, weather restraints, etc.). 88-Not Attempted due to Medical Conditions or Safety Concerns. Roll Left & Right (QC): 6 Sit to Lying (QC): 6 Lying to Sitting/Side of Bed(Q: 6 Sit to Stand (QC): 6 Chair/Jem-sj-Oloyx Xfer(QC): 6 Toilet Transfer (QC): 6 Car Transfer (QC): 6 Weight Bearing Full Weight Bearing Full Weight Bearing Gait Training Does the Patient Walk?: Yes Walk 10 feet (QC): 6 Walk 50 ft with 2 Turns(QC): 6 Walk 150 ft (QC): 6 Walking 10ft/uneven surface-QC: 6 Gait Persons Needed: 0 Gait Assistive Device: None pt. pushes O2 cylinder indep and walks with no LOB or incident Wheelchair Training Does the Pt Use a Wheelchair?: No Stair Training Stair Training: Handrails/: 2 handrails #of Steps: 12 1 Step (curb) (QC): 6 4 Steps (QC): 6 12 Steps (QC): 6 Stairs: Pattern: Reciprocal Balance Picking up an Object (QC): 6 Exercises Seated Therapy Exercises: Ankle pumps, Sit to stand, Long arc quads, Hip flexion Seated Reps: 12 NuStep Minutes: 10 NuStep Workload: 2 Treatments QC, gait, TRFs, stairs, Nustep and leg presses on Nustep, toileting etc all indep Assessment Current Status: Good Progress PT Accounting Bookkeeper Goals Accounting Bookkeeper Goals PT Accounting Bookkeeper Goals Time Frame: Jul 16, 2022 Roll Left & Right (QC): 6 Sit to Lying (QC): 6 Lying-Sitting on Side/Bed(QC): 6 Sit to Stand (QC): 6 Chair/Nxz-wk-Tfjnc Xfer(QC): 6 Toilet Transfer (QC): 6 Car Transfer (QC): 6 Does the Patient Walk: Yes Walk 10 feet (QC): 6 Walk 50ft with 2 Turns (QC): 6 Walk 150 ft (QC): 6 Walking 10ft on Uneven Surface: 6 1 Step (curb) (QC): 6 4 Steps (QC): 6 12 Steps (QC): 6 Picking up an Object (QC): 6 Wheel 50 feet with 2 turns (QC: 9 Wheel 150 feet: 9 PT Plan Treatment/Plan Treatment Plan: Continue Plan of Care Treatment Plan: Education, Functional Activity Yaima, Functional Strength, Group Therapy, Gait, Safety, Therapeutic Exercise, Transfers Treatment Duration: Jul 16, 2022 Frequency: At least 5 of 7 days/Wk (IRF) Estimated Hrs Per Day: 1.5 hours per day Patient and/or Family Agrees t: Yes Safety Risks/Education Patient Education: Gait Training, Transfer Techniques, Steps Time/GCodes Time In: 1000 Time Out: 1100 Total Billed Treatment Time: 60 Total Billed Treatment 1,EX15m,GT10m,FA35m JORDANA DE LOS SANTOS [employer] Jun 28, 2022 11:01
--- NOTE | 2022-06-28 12:44 | Physical Therapy Daily Note ---
PT Daily Note-Current Subjective Agrees to Rx, Pain Location: No Pain Reported Mental Status Patient Orientation: Normal For Age Attachments: Oxygen Transfers SCALE: Activities may be completed with or without assistive devices. 8-Klahoexteo-akztsnu completes the activity by him/herself with no assistance from a helper. 5-Set-up or Clean-up Assistance-helper sets up or cleans up; patient completes activity. [place] assists only prior to or following the activity. 4-Supervision or Touching Assistance-helper provides verbal cues and/or touching/steadying and/or contact guard assistance as patient completes activity. Assistance may be provided throughout the activity or intermittently. 3-Partial/Moderate Assistance-helper does LESS THAN HALF the effort. [place] lifts, holds or supports trunk or limbs, but provides less than half the effort. 2-Substantial/Maximal Assistance-helper does MORE THAN HALF the effort. [place] lifts or holds trunk or limbs and provides more than half the effort. 3-Zhvexkwox-dtgkyo does ALL the effort. Patient does none of the effort to complete the activity. Or, the assistance of 2 or more helpers is required for the patient to complete the activity. If activity was not attempted, code reason: 7-Patient Refused. 9-Not Applicable-not attempted and the patient did not perform the activity before the current illness, exacerbation or injury. 10-Not Attempted due to Environmental Limitations-(lack of equipment, weather restraints, etc.). 88-Not Attempted due to Medical Conditions or Safety Concerns. all TRFs mod I Weight Bearing Full Weight Bearing Full Weight Bearing Gait Training Does the Patient Walk?: Yes Gait Assistive Device: None 50 ft about room indep Exercises Supine Ex: Bridging, Ankle pumps, Quad Set, Rolling, Glut sets, Lower trunk rotation, Heel Slides, Short Arc Quads, Scooting, Straight leg raise, Hip a bd/add Supine Reps: 15 Assessment Current Status: Good Progress PT [facility] Goals Sign Out Clerk Goals PT Sign Out Clerk Goals Time Frame: Jul 16, 2022 Roll Left & Right (QC): 6 Sit to Lying (QC): 6 Lying-Sitting on Side/Bed(QC): 6 Sit to Stand (QC): 6 Chair/Hfh-ew-Wpywu Xfer(QC): 6 Toilet Transfer (QC): 6 Car Transfer (QC): 6 Does the Patient Walk: Yes Walk 10 feet (QC): 6 Walk 50ft with 2 Turns (QC): 6 Walk 150 ft (QC): 6 Walking 10ft on Uneven Surface: 6 1 Step (curb) (QC): 6 4 Steps (QC): 6 12 Steps (QC): 6 Picking up an Object (QC): 6 Wheel 50 feet with 2 turns (QC: 9 Wheel 150 feet: 9 PT Plan Treatment/Plan Treatment Plan: Continue Plan of Care Treatment Plan: Education, Functional Activity Yaima, Functional Strength, Group Therapy, Gait, Safety, Therapeutic Exercise, Transfers Treatment Duration: Jul 16, 2022 Frequency: At least 5 of 7 days/Wk (IRF) Estimated Hrs Per Day: 1.5 hours per day Patient and/or Family Agrees t: Yes Safety Risks/Education Patient Education: Transfer Techniques, Correct Positioning, Disease Process Time/GCodes Time In: 1130 Time Out: 1200 Total Billed Treatment Time: 30 Total Billed Treatment 1,EX30m JORDANA DE LOS SANTOS PTA Jun 28, 2022 12:44
--- NOTE | 2022-06-28 13:14 | Occupational Ther Daily Note ---
OT Current Status-Daily Note Subjective Pt sitting up in bed, talking on the phone. Pt agrees to therapy. No c/o pain at this time. Mental Status/Objective Patient Orientation: Person, Place, Time, Situation Attachments: IV, Oxygen ADL-Treatment Pt had one LOB in room able to recover. Pt ambulated to the INU floors kitchen independently, while propelling own oxygen. Pt participated in a cooking act ivity to prepare for IADL's at home. Pt was able to read and follow the directions on the package with no assistance. Pt independent in cooking activity including clean up. Pt ambulates to room by self. Pt left sitting EOB call light/phone in reach. All needs met in room. Therapy Code Descriptions/Definitions Functional [place] Measure: 0=Not Assessed/NA 4=Minimal Assistance 1=Total Assistance 5=Supervision or Setup 2=Maximal Assistance 6=Modified [place] 3=Moderate Assistance 7=Complete IndependenceSCALE: Activities may be completed with or without assistive devices. 9-Iumzbbpeev-jjrcyaj completes the activity by him/herself with no assistance from a helper. 5-Set-up or Clean-up Assistance-helper sets up or cleans up; patient completes activity. [place] assists only prior to or following the activity. 4-Supervision or Touching Assistance-helper provides verbal cues and/or touching/steadying and/or contact guard assistance as patient completes activity. Assistance may be provided throughout the activity or intermittently. 3-Partial/Moderate Assistance-helper does LESS THAN HALF the effort. [place] lifts, holds or supports trunk or limbs, but provides less than half the effort. 2-Substantial/Maximal Assistance-helper does MORE THAN HALF the effort. [place] lifts or holds trunk or limbs and provides more than half the effort. 4-Zpvvshfec-wgneyv does ALL the effort. Patient does none of the effort to complete the activity. Or, the assistance of 2 or more helpers is required for the patient to complete the activity. If activity was not attempted, code reason: 7-Patient Refused. 9-Not Applicable-not attempted and the patient did not perform the activity before the current illness, exacerbation or injury. 10-Not Attempted due to Environmental Limitations-(lack of equipment, weather restraints, etc.). 88-Not Attempted due to Medical Conditions or Safety Concerns. OT Mcfp Goals Mcfp Goals Time Frame: Jul 13, 2022 Eating (QC): 6 Oral Hygiene (QC): 6 Toileting Hygiene (QC): 6 Shower/Bathe Self (QC): 6 Upper Body Dressing (QC): 6 Lower Body Dressing (QC): 6 On/Off Footwear (QC): 6 Additional Goals: 1-Demonstrate ADL Tasks, 2-Verbalize Understanding, 3- ImproveStrength/Yaima 1=Demonstrate adherence to instructed precautions during ADL tasks. 2=Patient will verbalize/demonstrate understanding of assistive devices/modifications for ADL. 3=Patient will improve strength/tolerance for activity to enable patient to perform ADL's. OT Education/Plan Problem List/Assessment Assessment: Decreased Activ Tolerance Pt is currently at OF with all ADLS, independent to gather clothing/ADL items and she was able to step in/out of bathtub using GBs. She lives at home with her spouse who is able to assist with I/ADLs if/when needed. Even though pt is independent and at PLOF, per physician and rehab plan, pt is currently on ARU for skilled therapy prior to returning home at discharge, thus with continue receiving OT services. Discharge Recommendations Plan/Recommendations: Continue POC Treatment Plan/Plan of Care Patient would benefit from OT for education, treatment and training to promote independence in ADL's, mobility, safety and/or upper extremity function for ADL's. Plan of Care: ADL Retraining, Functional Mobility, Group Exercise/Act as Ind, UE Funct Exercise/Act Treatment Duration: Jul 13, 2022 Frequency: At least 5 of 7 days/Wk (IRF) Estimated Hrs Per Day: 1.5 hours per day Agreement: Yes Rehab Potential: Fair Time/GCodes Start Time: 12:30 Stop Time: 13:00 Total Time Billed (hr/min): 30 Billed Treatment Time 1 visit FA 2 (30 min) ALBERTO HAMM Jun 28, 2022 13:14
[2022-06-28 19:54] VITALS: BP 134/74
[2022-06-28] MEDS: DULoxetine 30 MG (CYMBALTA) CAP PO SCH (20:28)
[2022-06-28] MEDS: MONTELUKAST 10 MG (SINGULAIR) TAB PO SCH (20:29)
[2022-06-28] MEDS: ROSUVASTATIN 20 MG (CRESTOR) TABLET PO SCH (20:29)
[2022-06-28] MEDS ORDERED: CYAN-41 PO (20:32)
[2022-06-28] MEDS ORDERED: DRON400T6 PO (20:32)
[2022-06-28] MEDS ORDERED: PANT40TA52 PO (20:32)
[2022-06-28] MEDS: [UNRECOGNIZED DRUG - REMARK] IH SCH (20:32)
[2022-06-28] MEDS ORDERED: ASPI-1238 PO (20:32)
[2022-06-29] MEDS: KCL 10 MEQ TAB (MICRO K) PO SCH ×2 (06:27→06:28)
[2022-06-29] MEDS: LEVOTHYROXINE 112 MCG (LEVOTHROID) TAB PO SCH (06:28)
[2022-06-29] MEDS: CYANOCOBALAMIN 1,000 MCG (VITAMIN B-12) TABLET PO SCH (06:28)
[2022-06-29 07:22] VITALS: BP 136/63
--- NOTE | 2022-06-29 09:00 | Cardiology Progress Note ---
Subjective Date Seen by Provider: Jun 29, 2022 Time Seen by Provider: 08:59 Subjective/Events-last exam Patient was seen at bedside, laying down comfortably, no new complain Review of Systems General: No Chills, No Night Sweats, No Fatigue, No Malaise, No Appetite, No Other HEENT: No Head Aches, No Visual Changes, No Eye Pain, No Ear Pain, No Dysphasia, No Sinus Congestion, No Post Nasal Drip, No Sore Throat, No Other Pulmonary: No Dyspnea, No Cough, No Pleuritic Chest Pain, No Other Cardiovascular: No: Chest Pain, Palpitations, Orthopnea, Paroxysmal Noc. Dyspnea, Edema, Lt Headedness, Other Objective-Cardiology Exam Last Set of Vital Signs Vital Signs 06/26/22 06/29/22 07:47 07:22 Temp 36.5 Pulse 78 Resp 18 B/P (MAP) 136/63 (87) Pulse Ox 99 O2 Delivery Nasal Cannula O2 Flow Rate 2.00 FiO2 28 General: Alert, Oriented X3 HEENT: Atraumatic Neck: Supple Lungs: Clear to Auscultation, Normal Air Movement Heart: Regular Rate, Normal S1, Normal S2 Abdomen: Normal Bowel Sounds, Soft Skin: No Rashes, No Significant Lesion Neuro: Normal Speech Psych/Mental Status: Mental Status NL, Mood NL A/P-Cardiology Admission Diagnosis GI bleed CAD CHF PAF Assessment/Plan Anemia, most probably GI loss on top of anemia of chronic disease. s/p transfusion. H/H stable, continue to monitor Patient will need to have capsule endoscopy as outpatient. Will continue to hold Xarelto at this time. Possible discharge today, arrange for follow-up as an outpatient. Chest pain, resembling angina, improved after blood transfusion. Continue to monitor, no changes are recommended at this point. Paroxysmal atrial fibrillation/flutter, Patient was treated with amiodarone in the past and it was stopped due to the underlying lung disease and shortness of breath, patient is oxygen dependent Treated with Multaq and it was stopped due to the congestive heart failure She was intolerant to higher dose of beta-blockers due to bradycardia and syncope Patient has failed attempt for cardioversion on October 06, 2021, referred to Dr. Miller at , underwent ablation in October 2021. Has occasional breakthrough episodes of afib. Maintained on Multaq. NIKKI was done on October 06, 2021 showing dilated left atrium and left atrial appendage with no clot or thrombus, normal LV size, EF 60%, mild MR, aortic valve sclerosis with no stenosis. Failed attempt for cardioversion Coronary artery disease, history of CABG 3 done in 2006. Cardiac catheterization was done in February 2014 showing patent LUNA to the LAD, 60 percent stenosis at the distal portion of the LUNA. The proximal LAD has 90 percent stenosis with good flow supply to the LAD system. The vein graft to the obtuse marginal branch is patent with excellent flow distally and the vein graft to the right coronary artery is patent with excellent flow distally. Normal left ventricular size and systolic function. Cardiac catheterization done January 02, 2021 showing Patent LUNA to LAd, VG to the RCA. VG to the obtuse marginal branch has mod stenosis at an area followed by aneurysmal dilatation. Occluded prox circumflex artery corrected by the vein graft. Occluded prox RCA corrected by the VG. Right PDA was small vessel disease distally. Severe mid LAd stenosis corrected with the LUNA with dual supply to the LAD territory. Cardiac catheterization done on June 06, 2022 with stenting of the vein graft to the circumflex artery using skypoint stent 3.5 x 23 mm, patent LUNA to LAD and vein graft to the right coronary artery with severe [place] coronary artery disease, small vessel disease. Plavix and ASA was restarted, continue to monitor closely. History of frequent premature ventricular contractions. Patient has episodes of frequent paroxysmal atrial tachycardia with wide-complex tachycardia, sees Dr. Miller at [facility]. She is status post Linq implantation that has been followed by Dr. Miller. Hypertension, controlled. Continue to monitor blood pressure Hyperlipidemia, continue to monitor. History of carotid stenosis. Left carotid endarterectomy. Last ultrasound report showed moderate disease in the right carotid artery, more significant disease on the left side. Followed and managed by heart and vascular care. Continue to monitor. History of dizziness and lightheadedness. Reporting improvement. Continue to monitor. COPD, managment per Dr. Menjivar Pulmonary hypertension. Dr. Menjivar recommending RHC, planning for LHC and RHC next month. History of renal failure Hypothyroidism followed and managed by primary care physician. Chronic renal insufficiency, patient is following with DARSHAN Gracia MD Jun 29, 2022 09:00
[2022-06-29] MEDS: IRON SUCROSE 200 MG/10 ML (VENOFER) VIAL IV SCH (09:49)
[2022-06-29] MEDS: ISOSORBIDE MONONITRATE 30 MG (IMDUR) TAB PO SCH (09:53)
[2022-06-29] MEDS: MAGNESIUM OXIDE (MAG-OX)400 MG TAB PO SCH (09:53)
[2022-06-29] MEDS: SENNA W/DOCUSATE (SENOKOT S) TABLET PO SCH (09:54)
[2022-06-29] MEDS: ASPIRIN E.C. 81 MG (ECOTRIN) TAB PO SCH (09:54)
[2022-06-29] MEDS: polyethylene glycoL POWDER 17 GM (MIRALAX) PACK PO SCH (09:54)
[2022-06-29] MEDS: SENNOSIDES 8.6 MG (SENOKOT) TAB PO SCH (09:54)
[2022-06-29] MEDS: PANTOPRAZOLE 40 MG (PROTONIX) TAB PO SCH (09:54)
[2022-06-29] MEDS: FUROSEMIDE 40 MG (LASIX) TAB PO SCH (09:54)
[2022-06-29] MEDS: ALLOPURINOL 300 MG (ZYLOPRIM) TAB PO SCH (09:54)
[2022-06-29] MEDS: DOCUSATE SODIUM 100 MG (COLACE) CAP PO SCH (09:54)
[2022-06-29] MEDS: VITAMIN D3 125 MCG (5,000 UNITS) CAPSULE PO SCH (09:54)
[2022-06-29] MEDS: DRONEDARONE 400 MG TABLET PO SCH (09:54)
[2022-06-29] MEDS: CLOPIDOGREL 75 MG (PLAVIX) TABLET PO SCH (09:54)
[2022-06-29] MEDS: [UNRECOGNIZED DRUG - REMARK] IH SCH (09:55)
[2022-06-29] MEDS: [UNRECOGNIZED DRUG - REMARK] PO SCH (09:57)
--- NOTE | 2022-06-29 10:59 | Therapy Team Discharge Summary ---
Therapy Discharge Summary Discharge Recommendations Date of Discharge Physical Therapy Patient came to rehab with GI bleed. Upon evaluation patient performed rolling and supine <-> sit with independence, sit <-> stand and transfers independent, car transfer independent, ambulate 150' without an assistive device with independence (including 50' with at least 2 turns of 90 degrees and 10' over an uneven surface), went up and down 4 steps using 2 handrails with SBA, and picked up an object from the floor without a av specialist with SBA. Patient has been performing bed mobility and transfer training, balance and endurance training, functional strengthening, stair training, gait training, and education. Patient has made good progress and has met all of her mcfp goals. Now, patient performs rolling and supine <-> sit with independence, sit <-> stand and transfers independent, car transfer independent, ambulates without an assistive device with independence (including 50' with at least 2 turns of 90 degrees and 10' over an uneven surface), can go up and down 12 steps using 2 handrails with independence, and can picker and sorter load and unload an object from the floor without using a av specialist with independence. Patient is being discharged from this facility today and will be discharged from PT at this time. Roll Left to Right (QC): 6 Sit to Lying (QC): 6 Lying to Sitting/Side of Bed(Q: 6 Sit to Stand (QC): 6 Chair/Fvt-wn-Vdiks Xfer(QC): 6 Toilet Transfer (QC): 6 Car Transfer (QC): 6 Does the Patient Walk: Yes Mode of Locomotion: Walk Walk 10 feet (QC): 6 Walk 50 ft with 2 Turns(QC): 6 Walk 150 ft (QC): 6 Walking 10ft on uneven surface: 6 Distance: 150'x3 Gait Assistive Device: None Does the Pt Use a Wheelchair: No Wheel 50 ft with 2 turns (QC): 9 Wheel 150 ft (QC): 9 #of Steps: 12 1 Step (curb) (QC): 6 4 Steps (QC): 6 12 Steps (QC): 6 Balance Sitting Static: Normal Balance Sitting Dynamic: Normal Balance-Standing Static: Normal Picking up an Object (QC): 6 Occupational Therapy Decreased Activ Tolerance Eating (QC): 6 Oral Hygiene (QC): 6 Shower/Bathe Self (QC): 5 (set up only to cover IV, otherwise independent) Upper Body Dressing (QC): 6 Lower Body Dressing (QC): 6 On/Off Footwear (QC): 6 Toileting Hygiene (QC): 6 PT Skilled Nursing Goals Mortarman Goals PT Skilled Nursing Goals Time Frame: Jul 16, 2022 Roll Left to Right (QC): 6 Sit to Lying (QC): 6 Lying-Sitting on Side/Bed(QC): 6 Sit to Stand (QC): 6 Chair/Wng-vw-Fjyzk Xfer(QC): 6 Car Transfer (QC): 6 Does the Patient Walk: Yes Walk 10 feet (QC): 6 Walk 10ft-Uneven Surface(QC): 6 Walk 50ft with 2 Turns (QC): 6 Walk 150 ft (QC): 6 Wheel 50 feet with 2 turns (QC: 9 1 Step (curb) (QC): 6 4 Steps (QC): 6 12 Steps (QC): 6 Picking up an Object (QC): 6 OT Mortarman Goals Skilled Nursing Goals Time Frame: Jul 13, 2022 Eating (QC): 6 Oral Hygiene (QC): 6 Shower/Bathe Self (QC): 6 Upper Body Dressing (QC): 6 Lower Body Dressing (QC): 6 On/Off Footwear (QC): 6 Toileting Hygiene (QC): 6 Toilet/Commode Transfer (QC): 6 Additional Goals: 1-Demonstrate ADL Tasks, 2-Verbalize Understanding, 3- ImproveStrength/Yaima 1=Demonstrate adherence to instructed precautions during ADL tasks. 2=Patient will verbalize/demonstrate understanding of assistive devices/modifications for ADL. 3=Patient will improve strength/tolerance for activity to enable patient to perform ADL's. SRIDHAR FIELDS PT Jun 29, 2022 10:59
[2022-06-29 12:59] VITALS: BP 136/63
--- NOTE | 2022-06-29 14:00 | Therapy Team Discharge Summary ---
Therapy Discharge Summary Discharge Recommendations Date of Discharge Jun 29, 2022 at 12:45 Physical Therapy Roll Left to Right (QC): 6 Sit to Lying (QC): 6 Lying to Sitting/Side of Bed(Q: 6 Sit to Stand (QC): 6 Chair/Yjq-ua-Mognz Xfer(QC): 6 Toilet Transfer (QC): 6 Car Transfer (QC): 6 Does the Patient Walk: Yes Mode of Locomotion: Walk Walk 10 feet (QC): 6 Walk 50 ft with 2 Turns(QC): 6 Walk 150 ft (QC): 6 Walking 10ft on uneven surface: 6 Distance: 150'x3 Gait Assistive Device: None Does the Pt Use a Wheelchair: No Wheel 50 ft with 2 turns (QC): 9 Wheel 150 ft (QC): 9 #of Steps: 12 1 Step (curb) (QC): 6 4 Steps (QC): 6 12 Steps (QC): 6 Balance Sitting Static: Normal Balance Sitting Dynamic: Normal Balance-Standing Static: Normal Picking up an Object (QC): 6 Occupational Therapy Pt admitted to ARU with GI bleed. At PLOF, pt was independent with all ADLs and functional mobility, no AD. Upon initial evaluation, pt required set up assistance with showering to cover IV, and was independent with all other ADLs. OT tx focused on increasing safety and independence with ADLs and functional mobility, and increasing BUE strength and activity tolerance. At discharge, pt still required set up assist to cover IV prior to shower and was independent with all other ADLs. Pt discharged from facility, d/c from OT. Decreased Activ Tolerance Eating (QC): 6 Oral Hygiene (QC): 6 Shower/Bathe Self (QC): 5 (set up only to cover IV, otherwise independent) Upper Body Dressing (QC): 6 Lower Body Dressing (QC): 6 On/Off Footwear (QC): 6 Toileting Hygiene (QC): 6 PT Access Manager Goals [place] Goals PT Access Manager Goals Time Frame: Jul 16, 2022 Roll Left to Right (QC): 6 Sit to Lying (QC): 6 Lying-Sitting on Side/Bed(QC): 6 Sit to Stand (QC): 6 Chair/Evj-ek-Pkoku Xfer(QC): 6 Car Transfer (QC): 6 Does the Patient Walk: Yes Walk 10 feet (QC): 6 Walk 10ft-Uneven Surface(QC): 6 Walk 50ft with 2 Turns (QC): 6 Walk 150 ft (QC): 6 Wheel 50 feet with 2 turns (QC: 9 1 Step (curb) (QC): 6 4 Steps (QC): 6 12 Steps (QC): 6 Picking up an Object (QC): 6 OT Access Manager Goals Access Manager Goals Time Frame: Jul 13, 2022 Eating (QC): 6 (met) Oral Hygiene (QC): 6 (met) Shower/Bathe Self (QC): 6 (not met) Upper Body Dressing (QC): 6 (met) Lower Body Dressing (QC): 6 (met) On/Off Footwear (QC): 6 (met) Toileting Hygiene (QC): 6 (met) Toilet/Commode Transfer (QC): 6 (met) Additional Goals: 1-Demonstrate ADL Tasks, 2-Verbalize Understanding, 3- ImproveStrength/Yaima 1=Demonstrate adherence to instructed precautions during ADL tasks. 2=Patient will verbalize/demonstrate understanding of assistive devices/modifications for ADL. 3=Patient will improve strength/tolerance for activity to enable patient to perform ADL's. MOHAMUD FALL OT Jun 29, 2022 14:00
--- NOTE | 2022-06-30 06:07 | Discharge Summary ---
Diagnosis/Chief Complaint Date of Admission Jun 23, 2022 at 14:10 Date of Discharge Jun 29, 2022 at 12:45 Discharge Date: Jun 29, 2022 Discharge Diagnosis Assessment: Debility Anemia s/p 3 units of blood in ICU with recent negative scopes holding ASA and OAC restarted Plavix PAF Angina CAD recent stent in vein graft CHF diastolic type CABG 2006 HTN hx HLP PVD Carotid stenosis s/p LCEA Pulmonary HTN upcoming heart cath in near future COPD O2 dependent CKD Hypothyroidism Acute hypokalemia Plan: IRF protocol Monitor closely PT OT Home meds Hold OAC Hold ASA for now 06/24/2022: IV iron infusions Supportive care 06/25/2022: Capsule endoscopy Monitor closely 06/26/2022: Monitor closely DC Tely 06/27/2022: DC Saturday Venofer 06/28/2022: Discharge home Saturday (1) Severe anemia Status: Acute (2) CAD (coronary artery disease) (3) Atrial fibrillation (4) Dyspnea on minimal exertion Status: Acute AYUSH SEXTON DO Discharge Summary Discharge Physical Examination Allergies: Coded Allergies: Penicillins (Verified Allergy, Unknown, RASH, HAS HAD ROCEPHIN IN THE PAST W/O ISSUE, 09/27/16) clarithromycin (Verified Allergy, Unknown, 09/27/16) erythromycin base (Verified Allergy, Unknown, 09/27/16) levofloxacin (Verified Allergy, Unknown, 09/04/17) morphine (Verified Allergy, Unknown, itching, TAKES LORTAB AT HOME, 06/25/22) Vitals & I&Os Vital Signs Date Time Temp Pulse Resp B/P (MAP) Pulse Ox O2 Delivery O2 Flow Rate FiO2 06/29/22 12:59 36.5 78 18 136/63 99 Nasal Cannula 2.00 06/26/22 07:47 28 General Appearance: Alert, Oriented X3, Cooperative Respiratory: Clear to Auscultation Cardiovascular: Regular Rate Neuro: Normal Gait, Normal Speech, Strength at 5/5 X4 Ext Psych/Mental Status: Mental Status NL Hospital Course Was the Problem List Reviewed?: Yes Pt had an uneventful 7 day hospital course after she was admitted for GI bleed presumed due to severe symptomatic anemia. She required 3 units of blood transfusion and completed the IV iron infusions. Overall she participated in all therapy. She was bound to be independent back to baseline. She will be discharged in improved condition. She will have close f/u and labs checked: CBC and CMP on Saturday. I will see her later in the week. Labs (last 24 hrs) Laboratory Tests 06/24/22 04:53: White Blood Count 4.5, Red Blood Count 2.52L, Hemoglobin 7.8L, Hematocrit 24L, Mean Corpuscular Volume 96, Mean Corpuscular Hemoglobin 31, Mean Corpuscular Hemoglobin Concent 32, Red Cell Distribution Width 18.8H, Platelet Count 209, Mean Platelet Volume 9.5, Immature Granulocyte % (Auto) 1, Neutrophils (%) (Auto) 64, Lymphocytes (%) (Auto) 18, Monocytes (%) (Auto) 12, Eosinophils (%) (Auto) 5, Basophils (%) (Auto) 0, Neutrophils # (Auto) 2.9, Lymphocytes # (Auto) 0.8L, Monocytes # (Auto) 0.6, Eosinophils # (Auto) 0.2, Basophils # (Auto) 0.0, Immature Granulocyte # (Auto) 0.0, Sodium Level 141, Potassium Level 3.3L, Chloride Level 104, Carbon Dioxide Level 26, Anion Gap 11, Blood Urea Nitrogen 14, Creatinine 1.13, Estimat Glomerular Filtration Rate 51, BUN/Creatinine Ratio 12, Glucose Level 126H, Calcium Level 8.7, Corrected Calcium 9.3, Total Bilirubin 0.4, Aspartate Amino Transf (AST/SGOT) 19, Alanine Aminotransferase (ALT/SGPT) 11, Alkaline Phosphatase 80, Total Protein 5.4L, Albumin 3.2 06/25/22 07:09: Hemoglobin 8.2L, Hematocrit 26L, Sodium Level 144, Potassium Level 3.8, Chloride Level 104, Carbon Dioxide Level 29, Anion Gap 11, Blood Urea Nitrogen 13, Creatinine 1.30, Estimat Glomerular Filtration Rate 43, BUN/Creatinine Ratio 10, Glucose Level 99, Calcium Level 9.1, Magnesium Level 1.8 06/26/22 16:55: Urine Color YELLOW, Urine Clarity CLEAR, Urine pH 6.5, Urine Specific [place] 1.015L, Urine Protein NEGATIVE, Urine Glucose (UA) NEGATIVE, Urine Ketones NEGATIVE, Urine Nitrite NEGATIVE, Urine Bilirubin NEGATIVE, Urine Urobilinogen 0.2, Urine Leukocyte Esterase NEGATIVE, Urine RBC (Auto) NEGATIVE, Urine RBC NONE, Urine WBC NONE, Urine Squamous Epithelial Cells NONE, Urine Renal Epithelial Cells NONE, Urine Crystals NONE, Urine Bacteria NEGATIVE, Urine Casts NONE, Urine Mucus NEGATIVE, Urine Culture Indicated NO 06/28/22 07:08: Hemoglobin 8.3L, Hematocrit 27L, Sodium Level 142, Potassium Level 4.1, Chloride Level 103, Carbon Dioxide Level 28, Anion Gap 11, Blood Urea Nitrogen 20H, Creatinine 1.35H, Estimat Glomerular Filtration Rate 41, BUN/Creatinine Ratio 15, Glucose Level 104, Calcium Level 9.4 Pending Labs Laboratory Tests 06/24/22 04:53: White Blood Count 4.5, Red Blood Count 2.52, Hemoglobin 7.8, Hematocrit 24, Mean Corpuscular Volume 96, Mean Corpuscular Hemoglobin 31, Mean Corpuscular Hemoglobin Concent 32, Red Cell Distribution Width 18.8, Platelet Count 209, Mean Platelet Volume 9.5, Immature Granulocyte % (Auto) 1, Neutrophils (%) (Auto) 64, Lymphocytes (%) (Auto) 18, Monocytes (%) (Auto) 12, Eosinophils (%) (Auto) 5, Basophils (%) (Auto) 0, Neutrophils # (Auto) 2.9, Lymphocytes # (Auto) 0.8, Monocytes # (Auto) 0.6, Eosinophils # (Auto) 0.2, Basophils # (Auto) 0.0, Immature Granulocyte # (Auto) 0.0, Sodium Level 141, Potassium Level 3.3, Chloride Level 104, Carbon Dioxide Level 26, Anion Gap 11, Blood Urea Nitrogen 14, Creatinine 1.13, Estimat Glomerular Filtration Rate 51, BUN/Creatinine Ratio 12, Glucose Level 126, Calcium Level 8.7, Corrected Calcium 9.3, Total Bilirubin 0.4, Aspartate Amino Transf (AST/SGOT) 19, Alanine Aminotransferase (ALT/SGPT) 11, Alkaline Phosphatase 80, Total Protein 5.4, Albumin 3.2 06/25/22 07:09: Hemoglobin 8.2, Hematocrit 26, Sodium Level 144, Potassium Level 3.8, Chloride Level 104, Carbon Dioxide Level 29, Anion Gap 11, Blood Urea Nitrogen 13, Creatinine 1.30, Estimat Glomerular Filtration Rate 43, BUN/Creatinine Ratio 10, Glucose Level 99, Calcium Level 9.1, Magnesium Level 1.8 06/26/22 16:55: Urine Color YELLOW, Urine Clarity CLEAR, Urine pH 6.5, Urine Specific [place] 1.015, Urine Protein NEGATIVE, Urine Glucose (UA) NEGATIVE, Urine Ketones NEGATIVE, Urine Nitrite NEGATIVE, Urine Bilirubin NEGATIVE, Urine Urobilinogen 0.2, Urine Leukocyte Esterase NEGATIVE, Urine RBC (Auto) NEGATIVE, Urine RBC NONE, Urine WBC NONE, Urine Squamous Epithelial Cells NONE, Urine Renal Epithelial Cells NONE, Urine Crystals NONE, Urine Bacteria NEGATIVE, Urine Casts NONE, Urine Mucus NEGATIVE, Urine Culture Indicated NO 06/28/22 07:08: Hemoglobin 8.3, Hematocrit 27, Sodium Level 142, Potassium Level 4.1, Chloride L evel 103, Carbon Dioxide Level 28, Anion Gap 11, Blood Urea Nitrogen 20, Creatinine 1.35, Estimat Glomerular Filtration Rate 41, BUN/Creatinine Ratio 15, Glucose Level 104, Calcium Level 9.4 Discharge Home Medications: Active Scripts Active Vitamin B-12 (Cyanocobalamin (Vitamin B-12)) 1,000 Mcg Tablet 1,000 Mcg PO DAILY@0700 Pantoprazole Sodium 40 Mg Tablet.dr 40 Mg PO DAILY Aspirin EC (Aspirin) 81 Mg Tablet.dr 81 Mg PO DAILY Multaq (Dronedarone HCl) 400 Mg Tablet 400 Mg PO BID Reported Nystatin 100,000 Unit/Ml Oral.susp 4 Ml PO BID PRN Hydrocodone-Acetamin 10-325 mg (Hydrocodone/Acetaminophen) 10 Mg-325 Mg Tablet 1 Each PO Q6H PRN Clopidogrel (Clopidogrel Bisulfate) 75 Mg Tablet 75 Mg PO DAILY Potassium Chloride 10 Meq Capsule.er 10 Meq PO DAILY Nitroglycerin 0.4 Mg Tab.subl 0.4 Mg SL UD PRN Krill Oil 500 Mg Capsule 500 Mg PO HS Isosorbide Mononitrate ER (Isosorbide Mononitrate) 30 Mg Tab.er.24h 30 Mg PO DAILY Cymbalta (Duloxetine HCl) 30 Mg Capsule.dr 30 Mg PO HS Bystolic (Nebivolol HCl) 5 Mg Tablet 2.5 Mg PO BID TAKES OF A 5MG TAB Levothyroxine Sodium 112 Mcg Tablet 112 Mcg PO DAILY Lasix (Furosemide) 40 Mg Tablet 40 Mg PO DAILY Magnesium (Magnesium Oxide) 400 Mg Tablet 400 Mg PO DAILY Symbicort 160-4.5 Mcg Inhaler (Budesonide/Formoterol Fumarate) 10.2 Gm Hfa.aer.ad 2 Puff IH BID Crestor (Rosuvastatin Calcium) 20 Mg Tablet 20 Mg PO HS Tylenol Extra Strength (Acetaminophen) 500 Mg Tablet 1,000 Mg PO Q8H PRN TAKES 2 (500MG) TABLETS Proair Hfa (Albuterol Sulfate) 1 Puff Puff 1 Puff IH Q4H PRN Vitamin D3 (Cholecalciferol (Vitamin D3)) 125 Mcg Capsule 125 Mcg PO DAILY Montelukast Sodium 10 Mg Tablet 10 Mg PO HS Allopurinol 300 Mg Tablet 300 Mg PO DAILY Instructions to patient/family Please see electronic discharge instructions given to patient. Diagnosis/Problems Diagnosis/Problems (1) Severe anemia Status: Acute (2) CAD (coronary artery disease) (3) Atrial fibrillation (4) Dyspnea on minimal exertion Status: Acute Clinical Quality Measures DVT/VTE Risk/Contraindication: Contraindications-Pharm: Other *list below* Other: AYUSH Palomino DO Jun 30, 2022 06:07
== END 2022-06-29 12:45 | disposition home or self-care (01) | DRG 948 ==
PROVIDERS: ADMIT Internal Medicine; ATTEND Internal Medicine
DX: R53.81 Other malaise (principal); I13.0 Hypertensive heart and chronic kidney disease with heart failure and stage 1 through stage 4 chronic kidney disease, or unspecified chronic kidney disease; I50.30 Unspecified diastolic (congestive) heart failure; J44.9 Chronic obstructive pulmonary disease, unspecified; I25.119 Atherosclerotic heart disease of native coronary artery with unspecified angina pectoris; E87.6 Hypokalemia; N18.9 Chronic kidney disease, unspecified; D50.0 Iron deficiency anemia secondary to blood loss (chronic); D63.8 Anemia in other chronic diseases classified elsewhere; I27.20 Pulmonary hypertension, unspecified; I48.0 Paroxysmal atrial fibrillation; G62.9 Polyneuropathy, unspecified; K21.9 Gastro-esophageal reflux disease without esophagitis; E03.9 Hypothyroidism, unspecified; F41.9 Anxiety disorder, unspecified; F32.A Depression, unspecified; H91.90 Unspecified hearing loss, unspecified ear; Z99.81 Dependence on supplemental oxygen; Z79.02 Long term (current) use of antithrombotics/antiplatelets; Z95.5 Presence of coronary angioplasty implant and graft; Z87.891 Personal history of nicotine dependence; Z88.1 Allergy status to other antibiotic agents; Z88.5 Allergy status to narcotic agent; Z82.49 Family history of ischemic heart disease and other diseases of the circulatory system
CPT/HCPCS: 36415; 70450; 80048; 80053; 81000; 83735; 85014; 85018; 85025; 93005; 94760

== ENCOUNTER 2022-07-05 15:51 | Outpatient (CLI) | payer MEDICARE, OTHER ==
[~2022-07-05] VITALS: Ht 160 cm; Wt 92.2 kg
[~2022-07-05 15:51] MED LIST changes: -ALPRAZolam 0.25 MG (XANAX) TAB PO PRN; -BISACODYL 10 MG SUPP (DULCOLAX) PR PRN; -CALCIUM CARBONATE 500 MG (TUMS) TAB.CHEW PO PRN; +CYAN-41 PO; -CYANOCOBALAMIN INJ 1000 MCG/ML IM NR; -CYANOCOBALAMIN INJ 1000 MCG/ML IM ONE; -DOCUSATE SODIUM 100 MG (COLACE) CAP PO PRN; -DOCUSATE SODIUM 100 MG (COLACE) CAP PO SCH; -FLEET ENEMA ADULT 1 EA BTL PR PRN; -IRON SUCROSE 200 MG/10 ML (VENOFER) VIAL IV SCH; -LACTULOSE SYRUP 10GM/15ML (ENULOSE) 30ML UDC PO PRN; -LOPERAMIDE 2 MG (IMODIUM) TABLET PO PRN; -MELATONIN 3 MG TABLET PO PRN; -ONDANSETRON 4 MG (ZOFRAN) ORAL DISSOLVE TAB PO PRN; +PANT40TA52 PO; -SENNA W/DOCUSATE (SENOKOT S) TABLET PO SCH; -diphenhydrAMINE 25 MG TAB (BENADRYL) PO PRN; -guaiFENesin/CODEINE (ROBITUSSIN AC) 10ML UDC PO PRN; -polyethylene glycoL POWDER 17 GM (MIRALAX) PACK PO SCH
[2022-07-05 16:49] LABS: BASOPHILS % (AUTO) 1 % (0-10); EOSINOPHILS # (AUTO) 0.2 10^3/uL (0.0-0.3); EOSINOPHILS % (AUTO) 4 % (0-10); HEMATOCRIT 22 % (35-52); LYMPHOCYTES # (AUTO) 0.9 10^3/uL (1.0-4.0); LYMPHOCYTES % (AUTO) 13 % (12-44); MEAN CORPUSCULAR HEMOGLOBIN 32 pg (25-34); MEAN CORPUSCULAR HGB CONC 32 g/dL (32-36); MEAN CORPUSCULAR VOLUME 98 fL (80-99); MONOCYTES # (AUTO) 0.5 10^3/uL (0.0-1.0); MONOCYTES % (AUTO) 8 % (0-12); NEUTROPHILS # (AUTO) 4.7 10^3/uL (1.8-7.8); NEUTROPHILS % (AUTO) 74 % (42-75); PLATELET COUNT 204 10^3/uL (130-400); WHITE BLOOD COUNT 6.4 10^3/uL (4.3-11.0)
[2022-07-05] MEDS ORDERED: NS IV 500 ML 500 ML ONE (17:24)
[2022-07-05 17:30] VITALS: BP 99/55
[2022-07-05 17:50] VITALS: BP 127/59
[2022-07-05 18:01] VITALS: BP 127/59
[2022-07-05 19:45] VITALS: BP 104/52
[2022-07-05 20:07] VITALS: BP_SYST 106; BP_SYST 127; BP_DIAS 59; BP_DIAS 60
== END 2022-07-05 20:07 | disposition home or self-care (01) ==
LOC: 4TH 15:51 → 4THo 15:51
PROVIDERS: ATTEND Internal Medicine
DX: D64.9 Anemia, unspecified (principal)
CPT/HCPCS: 36430; 85025; 86850; 86900; 86901; 86920; P9016; 36415

== ENCOUNTER → 2022-07-27 | Outpatient (RCR) | payer MEDICARE, OTHER ==
[2022-07-13 10:30] VITALS: BP 107/49
[2022-07-13 10:49] LABS: HEMOGLOBIN 8.1 g/dL (11.5-16.0)
--- NOTE | 2022-07-13 12:26 | Diagnostic Imaging Report ---
CHEST 1 VIEW, AP/PA ONLY Indication: PICC placement Comparison: 06/22/2022 Findings: Right PICC has tip terminating near the superior cavoatrial junction. Stable lung volumes. Chronic linear opacities in lung bases are stable. No pneumothorax or pleural effusion. Stable cardiomegaly with changes of CABG. Impression: 1. Well-positioned right PICC with tip near the superior cavoatrial junction. Dictated by: Dictated on workstation # [id number]
[2022-07-13 13:10] VITALS: BP 107/49
[2022-07-13 13:20] VITALS: BP 126/89
[2022-07-13 13:35] VITALS: BP 107/64
[2022-07-13 16:15] VITALS: BP 110/68
[2022-07-18 11:00] VITALS: BP 130/59
[2022-07-18 11:11] LABS: HEMATOCRIT 29 % (35-52); HEMOGLOBIN 9.2 g/dL (11.5-16.0); MEAN CORPUSCULAR HEMOGLOBIN 31 pg (25-34); MEAN CORPUSCULAR HGB CONC 31 g/dL (32-36); MEAN CORPUSCULAR VOLUME 98 fL (80-99); MEAN PLATELET VOLUME 9.2 fL (9.0-12.2); PLATELET COUNT 198 10^3/uL (130-400); WHITE BLOOD COUNT 4.3 10^3/uL (4.3-11.0)
[2022-07-18 11:30] LABS: ALBUMIN 3.7 GM/DL (3.2-4.5); POTASSIUM 3.4 MMOL/L (3.6-5.0)
[2022-07-18 11:31] LABS: CALCIUM 9.4 MG/DL (8.5-10.1)
[2022-07-18 11:32] LABS: TOTAL PROTEIN 6.5 GM/DL (6.4-8.2)
[2022-07-18 11:34] LABS: BILIRUBIN,TOTAL 0.4 MG/DL (0.1-1.0)
[2022-07-18 11:36] LABS: CREATININE SERUM 1.25 MG/DL (0.60-1.30)
[2022-07-27 12:00] VITALS: BP 103/50
== END | disposition home or self-care (01) ==
LOC: SDC 07-13 10:23
PROVIDERS: ATTEND Internal Medicine
DX: Z45.2 Encounter for adjustment and management of vascular access device (principal); D64.9 Anemia, unspecified
CPT/HCPCS: 36430; 36569; 71045; 76937; 85014; 85018; 86850; 86900; 86901; 86920; C1751; P9016; 36415; 80053; 85027; 99211

== ENCOUNTER 2022-08-22 12:23 | Outpatient (RCR) | payer MEDICARE, OTHER ==
[2022-08-01 11:45] VITALS: BP 98/44
[2022-08-01 12:11] LABS: BASOPHILS % (AUTO) 1 % (0-10); EOSINOPHILS # (AUTO) 0.3 10^3/uL (0.0-0.3); EOSINOPHILS % (AUTO) 7 % (0-10); HEMATOCRIT 30 % (35-52); HEMOGLOBIN 9.4 g/dL (11.5-16.0); LYMPHOCYTES # (AUTO) 1.1 10^3/uL (1.0-4.0); LYMPHOCYTES % (AUTO) 24 % (12-44); MEAN CORPUSCULAR HEMOGLOBIN 30 pg (25-34); MEAN CORPUSCULAR HGB CONC 31 g/dL (32-36); MEAN CORPUSCULAR VOLUME 97 fL (80-99); MEAN PLATELET VOLUME 9.9 fL (9.0-12.2); MONOCYTES # (AUTO) 0.6 10^3/uL (0.0-1.0); MONOCYTES % (AUTO) 12 % (0-12); NEUTROPHILS # (AUTO) 2.6 10^3/uL (1.8-7.8); NEUTROPHILS % (AUTO) 55 % (42-75); PLATELET COUNT 201 10^3/uL (130-400); WHITE BLOOD COUNT 4.6 10^3/uL (4.3-11.0)
[2022-08-01 12:34] LABS: ALBUMIN 3.9 GM/DL (3.2-4.5); BILIRUBIN,TOTAL 0.5 MG/DL (0.1-1.0); CALCIUM 9.4 MG/DL (8.5-10.1); CREATININE SERUM 2.03 MG/DL (0.60-1.30); TOTAL PROTEIN 6.9 GM/DL (6.4-8.2)
[2022-08-08 11:35] VITALS: BP 107/79
[2022-08-08 12:05] LABS: HEMATOCRIT 34 % (35-52); MEAN CORPUSCULAR HEMOGLOBIN 31 pg (25-34); MEAN CORPUSCULAR HGB CONC 32 g/dL (32-36); MEAN CORPUSCULAR VOLUME 95 fL (80-99); MEAN PLATELET VOLUME 9.5 fL (9.0-12.2); PLATELET COUNT 195 10^3/uL (130-400); WHITE BLOOD COUNT 7.4 10^3/uL (4.3-11.0)
[2022-08-08 12:27] LABS: BILIRUBIN,TOTAL 0.6 MG/DL (0.1-1.0); CALCIUM 9.7 MG/DL (8.5-10.1); CREATININE SERUM 1.66 MG/DL (0.60-1.30); POTASSIUM 3.6 MMOL/L (3.6-5.0); TOTAL PROTEIN 7.2 GM/DL (6.4-8.2)
[2022-08-15 10:55] VITALS: BP 114/76
[~2022-08-22] VITALS: Ht 160 cm; Wt 92.2 kg
[~2022-08-22 12:23] MED LIST changes: +DARBEPOETIN 40 MCG/ML (ARANESP) HOSPITAL SC ONE
[2022-08-22 12:45] VITALS: BP 98/57
[2022-08-22 12:51] LABS: HEMATOCRIT 33 % (35-52); HEMOGLOBIN 10.3 g/dL (11.5-16.0); MEAN CORPUSCULAR HEMOGLOBIN 30 pg (25-34); MEAN CORPUSCULAR HGB CONC 31 g/dL (32-36); MEAN CORPUSCULAR VOLUME 95 fL (80-99); MEAN PLATELET VOLUME 9.4 fL (9.0-12.2); PLATELET COUNT 202 10^3/uL (130-400); WHITE BLOOD COUNT 5.1 10^3/uL (4.3-11.0)
[2022-08-22 13:02] LABS: POTASSIUM 3.9 MMOL/L (3.6-5.0)
[2022-08-22 13:03] LABS: CALCIUM 9.8 MG/DL (8.5-10.1)
[2022-08-22 13:06] LABS: BILIRUBIN,TOTAL 0.6 MG/DL (0.1-1.0)
[2022-08-22 13:07] LABS: CREATININE SERUM 1.44 MG/DL (0.60-1.30)
== END 2022-08-22 12:45 | disposition home or self-care (01) ==
LOC: SDC 12:23
PROVIDERS: ATTEND Internal Medicine
DX: Z45.2 Encounter for adjustment and management of vascular access device (principal); N18.9 Chronic kidney disease, unspecified; D63.1 Anemia in chronic kidney disease
CPT/HCPCS: 80053; 82728; 83540; 83550; 85025; G0463; 36415; 85027; 96372; 99211

== ENCOUNTER 2022-10-12 10:13 | Outpatient (CLI) | payer MEDICARE, OTHER ==
[~2022-10-12] VITALS: Ht 160 cm; Wt 92.0 kg
[~2022-10-12 10:13] MED LIST changes: +ALBU8.5H6 IH; -DARBEPOETIN 40 MCG/ML (ARANESP) HOSPITAL SC ONE
[2022-10-12 10:25] VITALS: BP 100/58
[2022-10-12 10:53] LABS: HEMATOCRIT 22 % (35-52); MEAN CORPUSCULAR HEMOGLOBIN 29 pg (25-34); MEAN CORPUSCULAR HGB CONC 31 g/dL (32-36); MEAN CORPUSCULAR VOLUME 95 fL (80-99); MEAN PLATELET VOLUME 9.6 fL (9.0-12.2); PLATELET COUNT 236 10^3/uL (130-400); WHITE BLOOD COUNT 5.5 10^3/uL (4.3-11.0)
[2022-10-12] MEDS ORDERED: NS IV 500 ML 500 ML IV SCH (11:00)
[2022-10-12 11:08] LABS: HEMOGLOBIN 6.8 g/dL (11.5-16.0)
[2022-10-12 12:00] VITALS: BP 101/63
[2022-10-12 12:15] VITALS: BP 101/63
[2022-10-12 14:18] VITALS: BP 106/64
== END 2022-10-12 14:55 ==
LOC: SDC 10:13
PROVIDERS: ATTEND Internal Medicine
DX: Z53.09 Procedure and treatment not carried out because of other contraindication (principal)
CPT/HCPCS: 36430; 85027; 86850; 86900; 86901; 86920; P9016; 36415

== ENCOUNTER 2022-10-16 12:49 | Outpatient (CLI) | payer MEDICARE, OTHER ==
[2022-10-16] VITALS (7 sets, daily range): BP systolic 102–122; BP diastolic 59–66
[2022-10-16 13:32] LABS: HEMOGLOBIN 8.5 g/dL (11.5-16.0)
[2022-10-16] MEDS ORDERED: NS IV 500 ML 500 ML IV ONE (15:15)
[2022-10-16 18:28] LABS: HEMOGLOBIN 8.8 g/dL (11.5-16.0)
== END 2022-10-16 19:00 | disposition home or self-care (01) ==
LOC: SDC 12:49
PROVIDERS: ATTEND Internal Medicine
DX: D64.9 Anemia, unspecified (principal)
CPT/HCPCS: 36430; 85014; 85018; 86850; 86900; 86901; 86920; P9016; 36415

== ENCOUNTER 2022-10-16 14:21 | Outpatient (RCR) | payer MEDICARE, OTHER ==
[2022-10-09 13:00] VITALS: BP 102/58
[2022-10-09] MEDS: diphenhydrAMINE 50 MG/ML INJ (BENADRYL) IV PRN (13:00)
[2022-10-09] MEDS: ACETAMINOPHEN 500 MG TAB (TYLENOL) PO PRN (13:00)
[2022-10-09] MEDS: FERRIC CARBOXYMALTOSE INJ 750 MG in NS (IVPB) 250 ML IV SCH (13:11)
[2022-10-16] MEDS: ACETAMINOPHEN 500 MG TAB (TYLENOL) PO PRN (14:52)
[2022-10-16] MEDS: diphenhydrAMINE 50 MG/ML INJ (BENADRYL) IV PRN (14:52)
[2022-10-16] MEDS: FERRIC CARBOXYMALTOSE INJ 750 MG in NS (IVPB) 250 ML IV SCH (14:58)
[2022-10-16 15:05] VITALS: BP 112/67
== END 2022-10-27 | disposition home or self-care (01) ==
LOC: SDC 14:21
PROVIDERS: ATTEND Internal Medicine Nephrology
DX: D50.8 Other iron deficiency anemias (principal); D63.1 Anemia in chronic kidney disease; N18.9 Chronic kidney disease, unspecified
CPT/HCPCS: 96365

== ENCOUNTER → 2022-11-27 | Outpatient (RCR) | payer MEDICARE, OTHER ==
[2022-10-30 12:17] LABS: ABSOLUTE RETIC # 105 10e9/uL (24-90); BASOPHILS % (AUTO) 1 % (0-10); EOSINOPHILS # (AUTO) 0.2 10^3/uL (0.0-0.3); EOSINOPHILS % (AUTO) 4 % (0-10); HEMATOCRIT 34 % (35-52); LYMPHOCYTES # (AUTO) 0.9 10^3/uL (1.0-4.0); LYMPHOCYTES % (AUTO) 15 % (12-44); MEAN CORPUSCULAR HEMOGLOBIN 30 pg (25-34); MEAN CORPUSCULAR HGB CONC 32 g/dL (32-36); MEAN CORPUSCULAR VOLUME 93 fL (80-99); MEAN PLATELET VOLUME 9.6 fL (9.0-12.2); MONOCYTES # (AUTO) 0.6 10^3/uL (0.0-1.0); MONOCYTES % (AUTO) 9 % (0-12); NEUTROPHILS # (AUTO) 4.5 10^3/uL (1.8-7.8); NEUTROPHILS % (AUTO) 71 % (42-75); PLATELET COUNT 247 10^3/uL (130-400); RETICULOCYTE % 2.85 % (0.50-2.40); WHITE BLOOD COUNT 6.3 10^3/uL (4.3-11.0)
[2022-10-30 12:44] LABS: ALBUMIN 4.3 GM/DL (3.2-4.5); BILIRUBIN,TOTAL 0.7 MG/DL (0.1-1.0); CALCIUM 9.7 MG/DL (8.5-10.1); CREATININE SERUM 1.17 MG/DL (0.60-1.30); POTASSIUM 3.5 MMOL/L (3.6-5.0); TOTAL PROTEIN 7.6 GM/DL (6.4-8.2)
[~2022-11-27] MED LIST changes: -POTA10CA43 PO; +POTA10CA44 PO
== END | disposition home or self-care (01) ==
LOC: ONC 10-30 10:44
PROVIDERS: ATTEND Internal Medicine Hematology & Oncology
DX: D50.9 Iron deficiency anemia, unspecified (principal); K92.2 Gastrointestinal hemorrhage, unspecified; I10 Essential (primary) hypertension; J44.9 Chronic obstructive pulmonary disease, unspecified; I25.10 Atherosclerotic heart disease of native coronary artery without angina pectoris; E03.9 Hypothyroidism, unspecified; E78.2 Mixed hyperlipidemia; E66.9 Obesity, unspecified
CPT/HCPCS: 80053; 82728; 83540; 83550; 83615; 84443; 85025; 85045; G0463; 36415; 99204; 99213

== ENCOUNTER 2023-01-01 11:28 | Outpatient (RCR) | payer MEDICARE, OTHER ==
[2023-01-01 11:46] LABS: BASOPHILS % (AUTO) 1 % (0-10); EOSINOPHILS # (AUTO) 0.2 10^3/uL (0.0-0.3); EOSINOPHILS % (AUTO) 4 % (0-10); HEMATOCRIT 31 % (35-52); HEMOGLOBIN 9.8 g/dL (11.5-16.0); LYMPHOCYTES % (AUTO) 20 % (12-44); MEAN CORPUSCULAR HEMOGLOBIN 32 pg (25-34); MEAN CORPUSCULAR HGB CONC 32 g/dL (32-36); MEAN CORPUSCULAR VOLUME 98 fL (80-99); MONOCYTES # (AUTO) 0.4 10^3/uL (0.0-1.0); MONOCYTES % (AUTO) 8 % (0-12); NEUTROPHILS # (AUTO) 3.2 10^3/uL (1.8-7.8); NEUTROPHILS % (AUTO) 67 % (42-75); PLATELET COUNT 207 10^3/uL (130-400); WHITE BLOOD COUNT 4.8 10^3/uL (4.3-11.0)
== END 2023-01-25 | disposition home or self-care (01) ==
LOC: ONC 11:28
PROVIDERS: ATTEND Internal Medicine Hematology & Oncology
DX: D50.9 Iron deficiency anemia, unspecified (principal); I10 Essential (primary) hypertension; E03.9 Hypothyroidism, unspecified; E78.2 Mixed hyperlipidemia; E66.9 Obesity, unspecified
CPT/HCPCS: 36415; 85025

== ENCOUNTER 2023-03-19 11:33 | Outpatient (RCR) | payer MEDICARE, OTHER | END 2023-03-27 | disposition home or self-care (01) | LOC: ONC 11:33 | PROVIDERS: ATTEND Internal Medicine Hematology & Oncology | DX: D50.9 Iron deficiency anemia, unspecified (principal); I10 Essential (primary) hypertension; E03.9 Hypothyroidism, unspecified; E78.2 Mixed hyperlipidemia; E66.9 Obesity, unspecified | CPT/HCPCS: 82728; 83540; 83550 ==

== ENCOUNTER → 2023-04-26 | Outpatient (RCR) | payer MEDICARE, OTHER ==
[2023-04-11 13:25] VITALS: BP 132/71
[2023-04-11] MEDS: FERRIC CARBOXYMALTOSE INJ 750 MG in NS (IVPB) 250 ML IV SCH (13:25)
[~2023-04-26] VITALS: Ht 160 cm; Wt 84.4 kg
[~2023-04-26] MED LIST changes: +NEBI2.5T2 PO; +POTA-185 PO; -POTA10CA44 PO; +POTA10CA84 PO; -POTA10TA PO
[2023-04-26] MEDS: FERRIC CARBOXYMALTOSE INJ 750 MG in NS (IVPB) 250 ML IV SCH (11:32)
== END | disposition home or self-care (01) ==
LOC: ONC 04-11 13:02
PROVIDERS: ATTEND Internal Medicine Hematology & Oncology
DX: D50.9 Iron deficiency anemia, unspecified (principal); I10 Essential (primary) hypertension; I65.29 Occlusion and stenosis of unspecified carotid artery; J44.9 Chronic obstructive pulmonary disease, unspecified; E03.9 Hypothyroidism, unspecified; E78.2 Mixed hyperlipidemia; E66.9 Obesity, unspecified; I48.0 Paroxysmal atrial fibrillation; Z79.01 Long term (current) use of anticoagulants
CPT/HCPCS: 36415; 96365

== ENCOUNTER 2023-05-01 11:34 | Outpatient (RCR) | payer MEDICARE, OTHER ==
[2023-04-11 13:25] VITALS: BP 132/71
== END 2023-05-27 | disposition home or self-care (01) ==
LOC: ONC 11:34
PROVIDERS: ATTEND Internal Medicine Hematology & Oncology
DX: D50.9 Iron deficiency anemia, unspecified (principal); I10 Essential (primary) hypertension; I65.29 Occlusion and stenosis of unspecified carotid artery; J44.9 Chronic obstructive pulmonary disease, unspecified; E03.9 Hypothyroidism, unspecified; E78.2 Mixed hyperlipidemia; E66.9 Obesity, unspecified; I48.0 Paroxysmal atrial fibrillation; Z79.01 Long term (current) use of anticoagulants

== ENCOUNTER 2023-06-12 11:39 | Outpatient (RCR) | payer MEDICARE, OTHER ==
[~2023-06-12] VITALS: Ht 160 cm; Wt 85.6 kg
[2023-06-12 12:21] LABS: BASOPHILS % (AUTO) 1 % (0-10); EOSINOPHILS # (AUTO) 0.2 10^3/uL (0.0-0.3); EOSINOPHILS % (AUTO) 3 % (0-10); HEMATOCRIT 26 % (35-52); LYMPHOCYTES # (AUTO) 0.9 10^3/uL (1.0-4.0); LYMPHOCYTES % (AUTO) 17 % (12-44); MEAN CORPUSCULAR HEMOGLOBIN 33 pg (25-34); MEAN CORPUSCULAR HGB CONC 31 g/dL (32-36); MEAN CORPUSCULAR VOLUME 106 fL (80-99); MEAN PLATELET VOLUME 9.4 fL (9.0-12.2); MONOCYTES # (AUTO) 0.5 10^3/uL (0.0-1.0); MONOCYTES % (AUTO) 9 % (0-12); NEUTROPHILS # (AUTO) 3.6 10^3/uL (1.8-7.8); NEUTROPHILS % (AUTO) 69 % (42-75); PLATELET COUNT 224 10^3/uL (130-400); WHITE BLOOD COUNT 5.2 10^3/uL (4.3-11.0)
[2023-06-12] MEDS ORDERED: NS IV 500 ML 500 ML IV SCH (13:00)
[2023-06-12 13:54] VITALS: BP 124/70
[2023-06-13] MEDS ORDERED: NS IV 500 ML 500 ML IV ONE (08:00)
[2023-06-21] MEDS ORDERED: RIVA15TA2 PO (11:19)
[2023-06-21] MEDS ORDERED: FERR-74 PO (11:19)
[2023-06-21] MEDS ORDERED: CHOL20002 PO (11:19)
[2023-06-21] MEDS ORDERED: ASPI-1238 PO (11:19)
[2023-06-21] MEDS ORDERED: FOLI1TAB33 PO (11:19)
[2023-06-23] MEDS ORDERED: PANT40TA52 PO (11:48)
[2023-06-23] MEDS ORDERED: SUCR1TAB36 PO (11:48)
== END 2023-06-27 | disposition home or self-care (01) ==
LOC: ONC 11:39
PROVIDERS: ATTEND Internal Medicine Hematology & Oncology
DX: D50.9 Iron deficiency anemia, unspecified (principal); I10 Essential (primary) hypertension; I65.29 Occlusion and stenosis of unspecified carotid artery; J44.9 Chronic obstructive pulmonary disease, unspecified; E03.9 Hypothyroidism, unspecified; E78.2 Mixed hyperlipidemia; E66.9 Obesity, unspecified; I48.0 Paroxysmal atrial fibrillation; Z79.01 Long term (current) use of anticoagulants
CPT/HCPCS: 36430; 82728; 83540; 83550; 85025; 86850; 86900; 86901; 86920; G0463; P9016; 36415; 99214

== ENCOUNTER 2023-06-20 17:24 | Inpatient (IN) | payer MEDICARE, OTHER ==
[~2023-06-20] VITALS: Ht 160 cm; Wt 85.2 kg
--- OUTSIDE RECORDS SUMMARY | 2023-06-20 18:02 | XMS REPORT | Encounter Summary ---
Author Author [facility] Organization [facility] Address Unknown Phone Unavailable Care Team Providers Care Weathercaster Name Role Phone Trudy Booth Unavailable Patricio Velasquez MD Unavailable Melonie Estes DO PCP Reason for Visit * Reason Onset Date Comments Remote Monitoring 06/04/2023 Missed transmission Questions Encounter Details Care Team Description Date Type Department Vandana Ann Remote Monitoring Questions (Missed harris smission ) 06/04/2023 Telephone Cardiology: [facility] [address] [facility], [address] [place] [address] Social History Date Tobacco Use Types Packs/Day Years Used Quit: 02/01/2007 Smoking Tobacco: Former Cigarettes 1 40 Smokeless Tobacco: Never Comments Alcohol Use Standard Drinks/Week No 0 (1 standard drink = 0.6 o z pure alcohol) Date Recorded PHQ-2 Answer 04/09/2022 PHQ-2 Score 0 Date Recorded Alcohol Use Answer Alcohol Use No Male: 9+ ounces (15+ Standard Drinks) per week Not o n file Threshold Female: 4.8+ ounces (8+ Standard Drinks) per week 0 Threshold Date Recorded Sex and Gender Information Value 12/22/2021 12:22 PM CHILD CARE TEAM LEAD Sex Assigned at Female 12/22/2021 12:22 PM CHILD CARE TEAM LEAD Gender Identity Female Sexual Orientation Not on file documented as of this encounter Functional Status Date of Assessment Functional Status Response 10/19/2022 Does the patient have a hearing impairment: Yes 09/05/2022 Does the patient have a visual impairment: Yes 09/05/2022 Does the patient have impaired ambulation: Yes 09/05/2022 Does the patient have an activity of daily living No (ADL) impairment: 09/05/2022 Does the patient have an instrumental activity of No daily living (IADL) impairment: Date of Assessment Cognitive Status Response 09/05/2022 Does the patient have a cognitive impairment: No documented as of this encounter Miscellaneous Notes * Telephone Encounter - Vandana Ann - 06/17/2023 7:53 AM CDT Remote transmission was received. Letter sent to patient with next device check date. No further action is required at this time. BC * Telephone Encounter - Vandana Ann - 06/11/2023 4:42 AM CDT No transmission was received. Letter sent to patient in follow up. * Telephone Encounter - Vandana Ann - 06/04/2023 6:58 AM CDT Patient was scheduled for a [employer] Carelink on 05/27/23 that has not been rece ived. Patient was instructed to send a manual transmission. Instructed if the tr ansmitter does not appear to be working properly, they need to contact the [employer] company directly. Patient was provided with that contact number. Requested the patient send us a [employer] message or contact our device nurses at [phone] to let us know after they have sent their transmission. Mychart sent to pt. BC Note: Patient needs to send a manual transmission as we did not receive their sc heduled remote interrogation. documented in this encounter Plan of Treatment Not on filedocumented as of this encounter Goals Goal Patient Associated Recent Progress Patient-Stat Aut hor Goal Type Problems ed? Recover from illness Hospital On track (10/19/2022 Yes Meagan Lopez, 2:15 PM CHILD CARE TEAM LEAD) RN Note: "To get better, keep my heart working" documented as of this encounter Visit Diagnoses Not on filedocumented in this encounter Additional Health Concerns Noted Time Assessment 04/16/2023 6:05 AM CDT A fall risk assessment has been complet ed for the patient 04/09/2022 4:28 PM CDT PHQ-2 Depression Total Score: 0 documented as of this encounter Care Teams Start Date End Date Weathercaster Relationship Specialty 08/29/20 Melonie Estes DO PCP - General Internal Medicine [address] [place] [address] 03/23/14 Trudy Booth 07/06/16 Patricio Velasquez MD Surgery, Orthopedic [address] [facility] [place] [address] documented as of this encounter
--- OUTSIDE RECORDS SUMMARY | 2023-06-20 18:02 | XMS REPORT | Encounter Summary ---
Author Author [facility] Organization [facility] Address Unknown Phone Unavailable Care Team Providers Care Formal Waiter/Waitress Name Role Phone Trudy Booth Unavailable Particio Velasquez MD Unavailable Melonie Estes DO PCP Reason for Visit * Reason Onset Date Comments Follow Up 05/08/2023 post Watchman medic ation/follow up appt Encounter Details Care Team Description Date Type Department Kaur Smith BSN Follow Up (post Watchman medication/foll ow up appt) 05/08/2023 Telephone Cardiology: [facility] [address] [address] [address] [place] [address] Social History Date Tobacco Use [...] and Gender Information Value 12/22/2021 12:22 PM OWNER CONSULTING ENGINEER Sex Assigned at Female 12/22/2021 12:22 PM OWNER CONSULTING ENGINEER Gender Identity Female Sexual Orientation Not on file Date Recorded COVID-19 Exposure Response 04/15/2023 10:42 AM CDT In the last 10 days, have you been in contact with N o / Unsure someone who was confirmed or suspected to have Coronavirus/COVID-19? documented as of this encounter Functional Status [...] encounter Miscellaneous Notes * Telephone Encounter - Kaur Smith BSN - 05/08/2023 11:31 AM CDT ----- Message from Estefania Gutierres MD sent at 05/08/2023 10:27 AM CDT ----- Regarding: RE: Amulet d/c meds Yes NIKKI after 3 months of Xarelto. ----- Message ----- From: Kaur Smith BSN Sent: 04/22/2023 10:57 AM CDT To: Estefania Gutierres MD; Jose Juan Fang PA-C Subject: RE: Amulet d/c meds Dr. Gutierres, Do you want to do f/u at 45 days or 3 months? If she is not going to go on Plav ix would we just do NIKKI at 3 months? Let me know. Kaur ----- Message ----- From: Estefania Gutierres MD Sent: 04/18/2023 4:45 PM CDT To: Jose Juan Fang PA-C; ALESHIA Forde Subject: RE: Amulet d/c meds I thinks she said she had more bruising with plavix than Xarelto. ----- Message ----- From: Kaur Smith BSN Sent: 04/16/2023 6:28 AM CDT To: Estefania Gutierres MD; Jose Juan Fang PA-C Subject: Amulet d/c meds Just wanted to verify Gem's d/c med plan. Amulet protocol is to d/c on DAPT but her chart is showing she will be on xarelto and ASA. Just wanting to make s ure since this is a deviation from the norm. Let me know. Thanks. documented in this encounter Plan of Treatment Not on filedocumented as of this encounter Goals Goal Patient Associated Recent Progress Patient-Stat Aut hor Goal Type Problems ed? Recover from illness Hospital On track (10/19/2022 Yes Meagan Lopez, 2:15 PM OWNER CONSULTING ENGINEER) RN Note: "To get better, keep my heart working" documented as of this encounter Visit Diagnoses Not on filedocumented in this encounter Additional Health Concerns Noted Time Assessment 04/16/2023 6:05 AM CDT A fall risk assessment has been complet ed for the patient 04/09/2022 4:28 PM CDT PHQ-2 Depression Total Score: 0 documented as of this encounter Care Teams Start Date End Date Formal Waiter/Waitress Relationship Specialty 08/29/20 Melonie Estes DO PCP - General Internal Medicine [address] [place] [address] 03/23/14 Trudy Booth 07/06/16 Patricio Velasquez MD Surgery, Orthopedic [address] [facility] [place] [address] documented as of this encounter
--- OUTSIDE RECORDS SUMMARY | 2023-06-20 18:02 | XMS REPORT | Encounter Summary ---
Author Author [facility] Organization [facility] Address Unknown Phone Unavailable Care Team Providers Care Construction Skills Teacher Name Role Phone Trudy Booth Unavailable Patricio Velasquez MD Unavailable Melonie Estes DO PCP Encounter Details Care Team Description Date Type Department Arrived 06/17/2023 Hospital Cardiovascular [facility] cine 7:25 PM Encounter Remote Device Check CDT [phone] Social History Date Tobacco Use Types Packs/Day [...] and Gender Information Value 12/22/2021 12:22 PM ENTERPRISE SYSTEMS ADMINISTRATOR Sex Assigned at Female 12/22/2021 12:22 PM ENTERPRISE SYSTEMS ADMINISTRATOR Gender Identity Female Sexual Orientation Not on [...] impairment: No documented as of this encounter Plan of Treatment Not on filedocumented as of this encounter Goals Goal Patient Associated Recent Progress Patient-Stat Aut hor Goal Type Problems ed? Recover from illness Hospital On track (10/19/2022 Yes Meagan Lopez, 2:15 PM ENTERPRISE SYSTEMS ADMINISTRATOR) RN Note: "To get better, keep my heart working" documented as of this encounter Procedures Comments Procedure Name Priority Date/Time Associated Diag nosis DEVICE EVALUATION - Routine 06/17/2023 Cardiovasc ular symptoms REMOTE PPM 7:25 PM CDT Persistent atrial fibrillation (HCC) documented in this encounter Results * DEVICE EVALUATION - REMOTE PPM NO CHARGES (06/17/2023 7:25 PM CDT) Pathologist Signature Component Value Ref Test Method Analysis Performed A t Range Time Device Type IPG MURJ Device [place] [employer] MURJ Transmitter Express Compatible Generator [employer] MURJ Roller Structural Mill Generator Model # [id number] MURJ Generator Serial # [id number] MURJ Generator Implnat [id number] MURJ Date EP DEVICE PATIENT 11/16/22- ILR MURJ NOTES explanted, new Micra post AVN ablation. Plan: VVIR 90 bpm tonight, then 80 bpm tomorrow; then 70 bpm at follow-up visit, SV Pacemaker Dependant no MURJ On Anticoagulation yes MURJ EP SYSTEM MRI yes MURJ CONDITIONAL Modality Anatomical Region Laterality MAC CV Heart Rhythm Anatomical Location / Laterality Collection Method / Volume Elida ection Time Received Time Specimen (Source) 06/16/2023 4:13 PM CDT Narrative 06/18/2023 11:32 PM CDT Title: Normal Remote: No Events * Normal Device Function * Battery: OK, >8.0 yrs * Sensing, impedance and thresholds reviewed * Programmed parameters reviewed * Presenting rhythm INDEPENDENT LIVING INSTRUCTOR 87 bpm * Heart Rate Histograms show some distribution * No significant changes noted * INDEPENDENT LIVING INSTRUCTOR 99% Tom Miller MD HEART RHYTHM MANAGEMENT ORD ERABLES documented in this encounter Visit Diagnoses Not on filedocumented in this encounter Additional Health Concerns Noted Time Assessment 04/16/2023 6:05 AM CDT A fall risk assessment has been complet ed for the patient 04/09/2022 4:28 PM CDT PHQ-2 Depression Total Score: 0 documented as of this encounter Care Teams Start Date End Date Construction Skills Teacher Relationship Specialty 08/29/20 Melonie Estes DO PCP - General Internal Medicine [address] [place] [address] 03/23/14 Trudy Booth 07/06/16 Patricio Velasquez MD Surgery, Orthopedic [address] [facility] [place] [address] documented as of this encounter
--- OUTSIDE RECORDS SUMMARY | 2023-06-20 18:02 | XMS REPORT | Clinical Summary ---
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 MCH 30.7 26 - 34 04/16/2023 [facility] DEPT PAT H AND PG 3:18 AM LAB MEDICINE CDT MCHC 32.4 32.0 - 04/16/2023 [facility] DEPT PAT H AND 36.0 3:18 AM LAB MEDICINE G/DL CDT RDW 16.6 (H) 11 - 15 04/16/2023 [facility] DEPT PAT H AND % 3:18 AM LAB MEDICINE CDT Platelet Count 184 150 - 04/16/2023 [facility] DEPT PATH AND 400 K/UL 3:18 AM LAB MEDICINE CDT MPV 7.9 7 - 11 04/16/2023 [facility] DEPT PAT H AND FL 3:18 AM LAB MEDICINE CDT Anatomical Location / Laterality Collection Method / Volume Elida ection Time Received Time Specimen (Source) BLOOD / Unknown 04/16/2023 2:55 AM CDT 04/16/20 3:03 AM CDT Estefania Gutierres MD LABORATORY ORDERABLES City/State/ZIP Code Phone Number Performing [place] [address], [facility] DEPT PATH AND [address] [facility] LAB MEDICINE * (ABNORMAL) BASIC METABOLIC PANEL (04/16/2023 2:55 AM CDT) Only the most recent of 2 results within the time period is included. Pathologist Signature Component Value Ref Test Method Analysis Performed A t Range Time Sodium 137 137 - 04/16/2023 [facility] DEPT PAT H AND 147 3:44 AM LAB MEDICINE MMOL/L CDT Potassium 5.0 3.5 - 04/16/2023 [facility] DEPT PAT H AND 5.1 3:44 AM LAB MEDICINE MMOL/L CDT Chloride 101 98 - 110 04/16/2023 [facility] DEPT PAT H AND MMOL/L 3:44 AM LAB MEDICINE CDT CO2 30 21 - 30 04/16/2023 [facility] DEPT PAT H AND MMOL/L 3:44 AM LAB MEDICINE CDT Anion Gap 6 3 - 12 04/16/2023 [facility] DEPT PAT H AND 3:44 AM LAB MEDICINE CDT Glucose 115 (H) 70 - 100 04/16/2023 [facility] DEPT PAT H AND MG/DL 3:44 AM LAB MEDICINE CDT Blood Urea Nitrogen 37 (H) 7 - 25 04/16/2023 [facility] DEPT PATH AND MG/DL 3:44 AM LAB MEDICINE CDT Creatinine 1.07 (H) 0.4 - 04/16/2023 [facility] DEPT PAT H AND 1.00 3:44 AM LAB MEDICINE MG/DL CDT Calcium 8.4 (L) 8.5 - 04/16/2023 [facility] DEPT PAT H AND 10.6 3:44 AM LAB MEDICINE MG/DL CDT eGFR 54 (L) >60 04/16/2023 [facility] DEPT PAT H AND mL/min 3:44 AM LAB MEDICINE CDT Comment: eGFR calculated using the CKD-EPIcr_R equation Anatomical Location / Laterality Collection Method / Volume Elida ection Time Received Time Specimen (Source) BLOOD / Unknown 04/16/2023 2:55 AM CDT 04/16/20 3:03 AM CDT Estefania Gutierres MD LABORATORY ORDERABLES City/State/ZIP Code Phone Number Performing [place] [address], [facility] DEPT PATH AND [address] [place] [address] * PERCUTANEOUS CLOSURE LEFT ATRIAL APPENDAGE WITH ENDOCARDIAL IMPLANT (04/15/2023 1:57 PM CDT) Modality Anatomical Region Laterality Other Anatomical Location / Laterality Collection Method / Volume Elida ection Time Received Time Specimen (Source) Impressions 04/15/2023 11:13 PM CDT Successful deployment of Amulet 22 mm device for left atrial appendage occlusion Left atrial pressure 26/4 mmHg PLAN / RECOMMENDATIONS Bedrest for 6 hours post sheath removal Remove femoral hemostatic stitch prior to discharge tomorrow morning Standard access site cares, no heavy exertion x 1 week Antiplatelet therapy: Aspirin 81 mg daily Anticoagulation: Continue Xarelto Follow-up: 45 days with transesophageal echocardiogram and office visit with Dr. Bhavik Gutierres was present throughout the cai portions of the procedure. Narrative 04/15/2023 11:13 PM CDT Table formatting from the original result was not included. ELECTROPHYSIOLOGY PROCEDURE AMULET LEFT ATRIAL APPENDAGE OCCLUDER IMPLANT DATE OF SERVICE: 04/15/2023 PROCEDURES General endotracheal anesthesia Transesophageal echocardiogram Ultrasound-guided femoral venous access Trans-atrial septal puncture for left atrium access Left atrial appendogram Left atrial appendage occlusion with 22 mm Amulet device Right femoral hemostatic nonabsorbable stitch placement ATTENDING: Dr. 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 All questions were answered. The patient expressed understanding, agreed to proceed and provided written informed consent. PRE-PROCEDURE IMAGING: NIKKI Left atrial appendage measurements Measurements NIKKI ~ 0 deg NIKKI ~ 45 deg NIKKI ~ 135 deg NIKKI ~ 90 deg MARINA Orifice (mm) 20 - 26 27 Landing Zone (mm) 2022 - PRESENTING RHYTHM: Atrial fibrillation TIME OUT: Time out was completed with verification of the correct patient identity and the procedure to be performed. ANESTHESIA: General endotracheal anesthesia was provided by Anesthesiology Service. SETUP: The patient was brought to the EP Lab in a fasting state. Cardiac rhythm, blood pressure, heart rate, respirations, oxygen saturation and level of consciousness were monitored prior to, throughout and after the procedure. The patient was placed supine on the fluoroscopy table, prepped and draped in the usual sterile fashion. Preprocedure antibiotic was administered. Ultrasound was utilized to confirm femoral vein patency. After instilling local anesthetic, access was obtained using micropuncture needle under anatomic and ultrasound guidance, using the modified Seldinger technique. Heparin IV was administered to achieve ACT greater than 300 seconds. ACCESS: Right femoral vein 14 [place] sheath Transseptal access: Transseptal access was obtained with guidance of fluoroscopy and NIKKI after heparin was administered. The intra-atrial septum was punctured using Playteau Versacross RF wire and left atrial access obtained. Left atrial pressure pressure was 26/4 mmHg. AMULET IMPLANT: Retaining the Versacross wire in the left atrium, the Versacross large access dilator was advanced over the wire into the left atrium. Retaining the Versacross wire in the left upper pulmonary vein, the large access dilator was exchanged for the 14 [place] torqueview sheath sheath. The sheath was advanced across the septum. The dilator was removed. A pigtail catheter was advanced to the left atrial appendage. Left atrial appendogram was performed by injecting contrast imaged in ACEVES caudal and ACEVES cranial projection. Left atrial appendage ostium size measurement was made. A 22 mm device was then advanced into the appendage. The device did not need be partially/completely recaptured. The device was appropriately deployed occluding the appendage on the first attempt. Tugging didn't move the device. Once the device was deployed, adequate occlusion was confirmed with NIKKI and appendogram. After it passed the tug test and CLOSE criteria, we released the anchor of the AMULET device. The sheaths were removed. Hemostatic [id number] nonabsorbable suture was deployed at the right femoral access site. Manual compression was held for 20 minutes to ensure hemostasis. Protamine total 40 mg IV was administered after test dose. Patient tolerated the procedure well. MEDICATIONS: Heparin IV and Cefazolin OV FLUOROSCOPY TIME: 7.5 min IODINATED CONTRAST: 50 mL ESTIMATED BLOOD LOSS: 60 mL COMPLICATIONS: None Estefania Gutierres MD ELECTROPHYSIOLOGY ORDERABLE S * NIKKI INT ELEMENT BURNER (04/15/2023 1:42 PM CDT) Pathologist Signature Component Value Ref Test Method Analysis Performed A t Range Time BSA 1.91 m2 OTHER OUTSIDE L AB Cardiology Siemens OTHER OUTSIDE LAB Ultrasound Machine [id number] Modality Anatomical Region Laterality Ultrasound Anatomical Location / Laterality Collection Method / Volume Elida ection Time Received Time Specimen (Source) Narrative 04/15/2023 4:56 PM CDT Intraoperative transesophageal echocardiogram was performed during the Amulet implantation Baseline NIKKI: Low normal left ventricular systolic function. Estimated EF ~50%. Abnormal septal wall motion consistent with right ventricular pacing. The right ventricle appears at least mildly dilated. Qualitatively, low normal systolic function. Biatrial dilatation. Small patent foramen ovale present at baseline with left to right interatrial shunt by color Doppler The left atrium and left atrial appendage are free of thrombus. Mild to moderate mitral valve regurgitation. Device leads in right-sided chambers. No pericardial effusion. Left atrial appendage measurements are detailed in the report below. NIKKI and fluoroscopy were used to guide wires, catheters and MARINA closure device into place during the procedure. Amulet 22 mm device deployed. Post Procedure: Well-seated, well-positioned Amulet left atrial appendage closure device. Color Doppler demonstrates no flow around the closure device. Small, iatrogenic interatrial shunt with left to right flow be color Doppler No pericardial effusion. Estefania Gutierres MD ECHO ORDERABLES * POC ACTIVATED CLOTTING TIME (04/15/2023 12:59 PM CDT) Pathologist Signature Component Value Ref Test Method Analysis Performed A t Range Time Activated Clotting 315 s 04/15/2023 [facility] EPT PATH AND Time 1:02 PM LAB MEDICINE POC CDT Anatomical Location / Laterality Collection Method / Volume Elida ection Time Received Time Specimen (Source) 04/15/2023 12:59 PM CDT 04/15/20 1:02 PM CDT Estefania Gutierres MD LABORATORY ORDERABLES City/State/ZIP Code Phone Number Performing [place] [address] [facility] DEPT PATH AND [address] LAB MEDICINE POC * TYPE & CROSSMATCH (04/15/2023 10:40 AM CDT) Pathologist Signature Component Value Ref Test Method Analysis Performed A t Range Time Units Ordered 0 04/15/2023 [facility] DEPT PATH AND 10:48 AM LAB MEDICINE CDT Crossmatch Expires 04/18/2023,2 04/15/2023 [facility] DEPT PATH AND 359 12:27 PM LAB MEDICINE CDT Record Check FOUND 04/15/2023 [facility] DEPT PATH AND 10:48 AM LAB MEDICINE CDT ABO/RH(D) O POS 04/15/2023 [facility] DEPT PATH AND 12:27 PM LAB MEDICINE CDT Antibody Screen NEG 04/15/2023 [facility] DEPT PAT H AND 12:27 PM LAB MEDICINE CDT Electronic YES 04/15/2023 [facility] DEPT PATH AND Crossmatch 12:27 PM LAB MEDICINE CDT Anatomical Location / Laterality Collection Method / Volume Elida ection Time Received Time Specimen (Source) BLOOD / Unknown 04/15/2023 10:40 AM CDT 04/15/20 10:48 AM CDT Danielle Guerrero BLOOD BANK ORDERABLES PRIVATE ADVISOR-E COMMERCE MANAGER City/State/ZIP Code Phone Number Performing Address Organization [address] DEPT PATH AND [address] [facility] * (ABNORMAL) POC PT/INR (04/15/2023 10:38 AM CDT) Pathologist Signature Component Value Ref Test Method Analysis Performed A t Range Time INR POC 1.7 (H) 0.8 - 04/15/2023 [facility] DEPT PAT H AND 1.2 11:30 AM LAB MEDICINE POC CDT Anatomical Location / Laterality Collection Method / Volume Elida ection Time Received Time Specimen (Source) 04/15/2023 10:38 AM CDT 04/15/20 11:30 AM CDT Estefania Gutierres MD LABORATORY ORDERABLES City/State/ZIP Code Phone Number Performing Address Organization [place], [place] [id number] [place] [address] DEPT PATH AND [address] [facility] LAB [facility] POC * POC GLUCOSE (04/15/2023 10:37 AM CDT) Pathologist Signature Component Value Ref Test Method Analysis Performed A t Range Time Glucose, POC 93 70 - 100 [facility]/2023 [facility] MG/DL 10:37 AM LAB MEDICINE POC CDT Anatomical Location / Laterality Collection Method / Volume Elida ection Time Received Time Specimen (Source) 04/15/2023 10:37 AM CDT 04/15/20 23 10:38 AM CDT Estefania Gutierres MD OTHER LABORATORY City/State/ZIP Code Phone Number Performing Address Organization [place], [place] [id number] [place], [place] [address]T PATH AND [address] [facility] LAB MEDICINE POC * MAGNESIUM (04/10/2023) Pathologist Signature Component Value Ref Test Method Analysis Performed A t Range Time Magnesium 1.8 [facility] AND LAB MEDICINE Anatomical Location / Laterality Collection Method / Volume Elida ection Time Received Time Specimen (Source) BLOOD / Unknown 04/10/2023 Estefania Gutierres MD LABORATORY ORDERABLES City/State/ZIP Code Phone Number Performing Address [address] [facility] LAB MEDICINE * ECG 12-LEAD (03/26/2023 1:34 PM CDT) Pathologist Signature Component Value Ref Test Method Analysis Performed A t Range Time VENTRICULAR RATE 83 BPM GE MUSE P-R INTERVAL ms GE MUSE QRS DURATION 152 ms GE MUSE Q-T INTERVAL 462 ms GE MUSE QTC CALCULATION 542 ms GE MUSE (BAZETT) P AXIS degrees GE MUSE R AXIS 125 degrees GE MUSE T AXIS 5 degrees GE MUSE Anatomical Location / Laterality Collection Method / Volume Elida ection Time Received Time Specimen (Source) 03/26/2023 1:34 PM CDT 04/07/20 11:06 PM CDT Impressions GE MUSE - 04/07/2023 11:06 PM CDT Ventricular-paced rhythm Abnormal ECG When compared with ECG of 13-DEC-2022 15:11, Vent. rate has decreased BY 2 BPM Confirmed by Estefania Gutierres ([id number]) on 04/07/2023 11:06:50 PM Narrative Procedure Note Estefania Gutierres MD - 04/07/2023 IMPRESSION Ventricular-paced rhythm Abnormal ECG When compared with ECG of 13-DEC-2022 15:11, Vent. rate has decreased BY 2 BPM Confirmed by Estefania Gutierres ([id number]) on 04/07/2023 11:06:50 PM Estefania Gutierres MD ECG ORDERABLES City/State/ZIP Code Phone Number Performing Address Organization GE MUSE * DEVICE EVALUATION - PPM (PERMANENT PACEMAKER) (03/26/2023 1:13 PM CDT) Pathologist Signature Component Value Ref Test Method Analysis Performed A t Range Time Device Type IPG MURJ Device Amity Carelink MURJ Transmitter Express Compatible Generator Medtronic MURJ Paper Cutter Generator Serial # [id number] MURJ Generator Model # Micra VR TCP MURJ [id number] Generator Implnat [id number] MURJ Date EP DEVICE PATIENT 11/16/22- ILR [...] Elida ection Time Received Time Specimen (Source) 03/26/2023 Narrative 03/31/2023 10:26 PM CDT Title: In-Office Check [03/26/2023 1:13:32 PM - KAUR CARMEN] # clinic QUICK check * interrogation for MICRA VR Medtronic PPM. Device/lead function: within expected limits Battery: >8 years Presenting EGM shows WAITER/WAITRESS DINING CAR 80 bpm New events: NONE Histograms are flat, pt is in wheelchair today. States activity is very limited due to pulmonary issues. 99.5% RV paced Programming changes: NONE Carelink remote connectivity confirmed Tom Miller MD HEART RHYTHM MANAGEMENT ORD ERABLES from Last 3 Months Insurance Type Payer Benefit Subscriber ID Effective Phone Address Plan / Dates Group Medicare MEDICARE MEDICARE [id number] 2009- [phone] [address] AND Present [address] [place] [address] O [id number] 2014-P [phone] [address] [address] [place] [id number] Advance Directives Date Inactivated Comments Code Status Date Activated 04/16/2023 2:09 PM Full Code 04/15/2023 9:59 AM Comments Question Answer Provider has Yes discussed Code Status w/Patient or Family? Date Inactivated Comments Code Status Date Activated 11/16/2022 1:50 PM Full Code 11/15/2022 6:31 AM Comments Question Answer Provider has Yes discussed Code Status w/Patient or Family? 10/20/2022 6:39 PM Full Code 10/17/2022 6:40 AM Comments Question Answer Provider has Yes discussed Code Status w/Patient or Family? 10/17/2022 6:40 AM Full Code 10/17/2022 6:40 AM Comments Question Answer Provider has Yes discussed Code Status w/Patient or Family? 11/28/2021 11:14 AM Full Code 11/27/2021 6:12 AM Comments Question Answer Provider has Yes discussed Code Status w/Patient or Family? Care Teams Start Date End Date Index Editor Relationship Specialty 08/29/20 Melonie Estes DO PCP - General Internal Medicine [address] [place] [address] 03/23/14 Trudy Booth 07/06/16 Patricio Velasquez MD Surgery, Orthopedic [address] [place] [address]
--- OUTSIDE RECORDS SUMMARY | 2023-06-20 18:02 | XMS REPORT | Encounter Summary ---
Author Author [facility] Organization [facility] Address Unknown Phone Unavailable Care Team Providers Care Medical Accounts Receivable Specialist Name Role Phone Trudy Booth Unavailable Patricio Velasquez MD Unavailable Melonie Estes DO PCP Reason for Referral * Test (Routine) - Pending Review Diagnoses / Procedures Referred By Contact Referred To Conta ct Specialty Diagnoses Paroxysmal atrial fibrillation (HCC) Procedures TRANSESOPHAGEAL ECHO Estefania Gutierres MD [address] [facility] [address] [place] [address] Referral ID Status Reason Start Date Expiration Visits Vi sits Date Requested Authorized [id number] Pending 04/23/2023 04/22/2024 1 1 Review Encounter Details Care Team Description Date Type Department Kaur Smith BSN PAT (paroxysmal atrial tachycardia) (HCC ) (Primary Dx); Paroxysmal atrial fibrillation (HCC) 04/23/2023 Pre-Admit Cardiology: [facility] [address] [facility], [address] [place] [address] Social History Date Tobacco Use [...] and Gender Information Value 12/22/2021 12:22 PM SUPERVISOR GRIPS Sex Assigned at Female 12/22/2021 12:22 PM SUPERVISOR GRIPS Gender Identity Female Sexual Orientation Not on [...] as of this encounter Plan of Treatment Order Schedule Name Type Priority Associated Diag noses Expected: 07/17/2023, Expires: TRANSESOPHAGEAL ECHO ECHO Routine Paroxysma l atrial fibrillation (HCC) documented as of this encounter Goals Goal Patient Associated Recent Progress Patient-Stat Aut hor Goal Type Problems ed? Recover from illness Hospital On track (10/19/2022 Yes John Meagan, 2:15 PM SUPERVISOR GRIPS) RN Note: "To get better, keep my heart working" documented as of this encounter Visit Diagnoses Diagnosis PAT (paroxysmal atrial tachycardia) (HC C) - Primary Paroxysmal supraventricular tachycardia Paroxysmal atrial fibrillation (HCC) Atrial fibrillation documented in this encounter Additional Health Concerns Noted Time Assessment 04/16/2023 6:05 AM CDT A fall risk assessment has been complet ed for the patient 04/09/2022 4:28 PM CDT PHQ-2 Depression Total Score: 0 documented as of this encounter Care Teams Start Date End Date Medical Accounts Receivable Specialist Relationship Specialty 08/29/20 Melonie Estes DO PCP - General Internal Medicine [address] [place] [address] 03/23/14 Trudy Booth 07/06/16 Patricio Velasquez MD Surgery, Orthopedic [address] [place] [address] documented as of this encounter
--- OUTSIDE RECORDS SUMMARY | 2023-06-20 18:02 | XMS REPORT | Encounter Summary ---
Author Author [facility] Organization [facility] Address Unknown Phone Unavailable Care Team Providers Care Lift Electrician Name Role Phone Trudy Booth Unavailable Patricio Velasquez MD Unavailable Melonie Estes DO PCP Reason for Visit * Reason Onset Date Comments Follow Up 04/25/2023 post Amulet f/u kelli ts Encounter Details Care Team Description Date Type Department Kaur Smith BSN Follow Up (post Amulet f/u appts) 04/25/2023 Telephone Cardiology: [facility] [address] [facility] [address] [place] [address] Social History Date Tobacco Use [...] and Gender Information Value 12/22/2021 12:22 PM FOREIGN COLLECTION CLERK Sex Assigned at Female 12/22/2021 12:22 PM FOREIGN COLLECTION CLERK Gender Identity Female Sexual Orientation Not on [...] Telephone Encounter - Kaur Smith BSN - 04/25/2023 10:31 AM CDT Called patient to check on status and confirm post Amulet f/u appts. for glory peck to call. Will also send [employer] message. * Telephone Encounter - Kaur Smith BSN - 04/25/2023 10:31 AM CDT ----- Message from Anusha Magallanes RN sent at 04/24/2023 3:16 PM CDT ----- Regarding: FW: review with YMR YMR said NIKKI at 3 months post implant. OK to leave NIKKI on 07/17 as is. ----- Message ----- From: Anusha Magallanes RN Sent: 04/24/2023 12:00 AM CDT To: Anusha Magallanes RN Subject: review with YMR Need a favor: Gem Noland [id number] - had Amulet with RAD on 04/15. Patient di d not want to go on plavix d/t problems with heavy bruising so RAD has her on Xa relto and ASA. His op note states to f/u in 45 days but if the patient is not e bryan going to be taking plavix we would normally leave them on OAC/ASA for 3 majo hs then do NIKKI, if NIKKI clear then d/c OAC and pt would remain on ASA alone at th at time (at least this is what we do for [place]). Since RAD is on NELLI and I have not gotten a reply from him can you ask YMR tomorrow what his thoughts are on this. I currently have her scheduled for f/u OV/NIKKI on 07/17. THANKS Jeffrey RICE. documented in this encounter Plan of Treatment Not on filedocumented as of this encounter Goals Goal Patient Associated Recent Progress Patient-Stat Aut hor Goal Type Problems ed? Recover from illness Hospital On track (10/19/2022 Yes Maegan Lopez, 2:15 PM FOREIGN COLLECTION CLERK) RN Note: "To get better, keep my heart working" documented as of this encounter Visit Diagnoses Not on filedocumented in this encounter Additional Health Concerns Noted Time Assessment 04/16/2023 6:05 AM CDT A fall risk assessment has been complet ed for the patient 04/09/2022 4:28 PM CDT PHQ-2 Depression Total Score: 0 documented as of this encounter Care Teams Start Date End Date Lift Electrician Relationship Specialty 08/29/20 Melonie Estes DO PCP - General Internal Medicine [address] [place] [address] 03/23/14 Trudy Booth 07/06/16 Patricio Velasquez MD Surgery, Orthopedic [address] [facility] [place] [address] documented as of this encounter
[2023-06-20] MEDS ORDERED: ONDANSETRON 4 MG ORAL DISSOLVE TABLET PO PRN (18:15)
[2023-06-20] MEDS ORDERED: CALCIUM CARBONATE 500 MG CHEW TABLET PO PRN (18:15)
[2023-06-20] MEDS ORDERED: MILK OF MAGNESIA 400 MG/5 ML 30 ML UDC PO PRN (18:15)
[2023-06-20] MEDS ORDERED: MELATONIN 3 MG TABLET PO PRN (18:15)
[2023-06-20] MEDS ORDERED: ANTACID SUSPENSION 30 ML UDC PO PRN (18:15)
[2023-06-20] MEDS ORDERED: ACETAMINOPHEN 325 MG TABLET PO PRN (18:15)
[2023-06-20] MEDS ORDERED: diphenhydrAMINE INJ 50 MG/ML VIAL IVP PRN (18:15)
[2023-06-20] MEDS ORDERED: LACTULOSE SYRUP 10GM/15ML 30ML UDC PO PRN (18:15)
[2023-06-20] MEDS ORDERED: BISACODYL 10 MG SUPPOSITORY PR PRN (18:15)
[2023-06-20] MEDS ORDERED: ONDANSETRON INJECTION 4 MG/2 ML (SDV) IV PRN (18:15)
[2023-06-20 18:50] LABS: BASOPHILS % (AUTO) 0 % (0-10); EOSINOPHILS % (AUTO) 0 % (0-10); HEMATOCRIT 22 % (35-52); LYMPHOCYTES # (AUTO) 0.3 10^3/uL (1.0-4.0); LYMPHOCYTES % (AUTO) 3 % (12-44); MEAN CORPUSCULAR HEMOGLOBIN 32 pg (25-34); MEAN CORPUSCULAR HGB CONC 32 g/dL (32-36); MEAN CORPUSCULAR VOLUME 102 fL (80-99); MEAN PLATELET VOLUME 9.3 fL (9.0-12.2); MONOCYTES # (AUTO) 0.2 10^3/uL (0.0-1.0); MONOCYTES % (AUTO) 1 % (0-12); NEUTROPHILS # (AUTO) 11.1 10^3/uL (1.8-7.8); NEUTROPHILS % (AUTO) 95 % (42-75); PLATELET COUNT 195 10^3/uL (130-400); WHITE BLOOD COUNT 11.7 10^3/uL (4.3-11.0)
[2023-06-20 19:02] LABS: ALBUMIN 3.9 GM/DL (3.2-4.5); POTASSIUM 3.8 MMOL/L (3.6-5.0)
[2023-06-20 19:04] LABS: CALCIUM 9.1 MG/DL (8.5-10.1)
[2023-06-20 19:05] LABS: TOTAL PROTEIN 6.3 GM/DL (6.4-8.2)
[2023-06-20 19:06] LABS: BILIRUBIN,TOTAL 0.5 MG/DL (0.1-1.0)
[2023-06-20 19:08] LABS: CREATININE SERUM 0.99 MG/DL (0.60-1.30)
[2023-06-20] MEDS ORDERED: NS IV 500 ML 500 ML IV SCH ×2 (19:15)
[2023-06-20 19:50] VITALS: BP 125/70
[2023-06-20 20:02] LABS: BAND NEUTROPHILS 10 %; LYMPHOCYTES % (MANUAL) 3 %; NEUTROPHILS % (MANUAL) 87 %
[2023-06-20 20:03] LABS: ANISOCYTOSIS MODERATE; PLATELET ESTIMATE ADEQUATE
[2023-06-20 21:11] VITALS: BP 116/56
[2023-06-20 21:26] VITALS: BP 120/56
[2023-06-20] MEDS: DOCUSATE SODIUM 100 MG CAPSULE PO SCH (21:40)
[2023-06-20] MEDS: SENNOSIDES 8.6 MG TABLET PO SCH (21:41)
[2023-06-20 22:27] VITALS: BP 125/70
[2023-06-20] MEDS ORDERED: RT-ALBUTEROL SULF 2.5 MG/3 ML PRE-MIX VIAL INH PRN (22:45)
[2023-06-20] MEDS: PANTOPRAZOLE 40 MG TABLET PO SCH (23:07)
[2023-06-20] MEDS: diphenhydrAMINE 25 MG TABLET PO PRN (23:12)
[2023-06-20] MEDS: HYDROcodone/ACETAMINOPHEN 10/325 TABLET PO PRN (23:13)
[2023-06-21] VITALS (10 sets, daily range): BP systolic 96–167; BP diastolic 49–77
[2023-06-21 02:33] LABS: BASOPHILS % (AUTO) 0 % (0-10); EOSINOPHILS % (AUTO) 0 % (0-10); HEMATOCRIT 23 % (35-52); HEMOGLOBIN 7.5 g/dL (11.5-16.0); LYMPHOCYTES # (AUTO) 0.5 10^3/uL (1.0-4.0); LYMPHOCYTES % (AUTO) 6 % (12-44); MEAN CORPUSCULAR HEMOGLOBIN 31 pg (25-34); MEAN CORPUSCULAR HGB CONC 32 g/dL (32-36); MEAN CORPUSCULAR VOLUME 98 fL (80-99); MEAN PLATELET VOLUME 9.6 fL (9.0-12.2); MONOCYTES # (AUTO) 0.2 10^3/uL (0.0-1.0); MONOCYTES % (AUTO) 3 % (0-12); NEUTROPHILS # (AUTO) 7.5 10^3/uL (1.8-7.8); NEUTROPHILS % (AUTO) 90 % (42-75); PLATELET COUNT 165 10^3/uL (130-400); WHITE BLOOD COUNT 8.3 10^3/uL (4.3-11.0)
[2023-06-21 02:44] LABS: ALBUMIN 3.6 GM/DL (3.2-4.5); POTASSIUM 4.3 MMOL/L (3.6-5.0)
[2023-06-21 02:45] LABS: CALCIUM 8.7 MG/DL (8.5-10.1)
[2023-06-21 02:46] LABS: TOTAL PROTEIN 5.9 GM/DL (6.4-8.2)
[2023-06-21 02:48] LABS: BILIRUBIN,TOTAL 0.8 MG/DL (0.1-1.0)
[2023-06-21 02:50] LABS: CREATININE SERUM 0.94 MG/DL (0.60-1.30)
[2023-06-21] MEDS ORDERED: NS IV 500 ML 500 ML IV SCH (04:30)
[2023-06-21] MEDS: diphenhydrAMINE 25 MG TABLET PO PRN (06:50)
[2023-06-21] MEDS: HYDROcodone/ACETAMINOPHEN 10/325 TABLET PO PRN (06:51)
[2023-06-21] MEDS ORDERED: RT-ALBUTEROL SULF 2.5 MG/3 ML PRE-MIX VIAL INH SCH (07:00)
[2023-06-21] MEDS: SENNOSIDES 8.6 MG TABLET PO SCH ×2 (08:51→20:15)
[2023-06-21] MEDS: PANTOPRAZOLE 40 MG TABLET PO SCH ×2 (08:51→20:15)
[2023-06-21] MEDS: DOCUSATE SODIUM 100 MG CAPSULE PO SCH ×2 (08:51→20:15)
--- NOTE | 2023-06-21 10:07 | History & Physical ---
History of Present Illness History of Present Illness Reason for visit/HPI Gem Noland is a 77 year old female with past medical history significant for CAD with previous MS with CABG, atrial fibrillation, COPD, 2 prior CVA's, HTN, diastolic heart failure. She came into the hospital yesterday evening after having labs drawn as an outpatient that showed a hemoglobin of 7.5. She was subsequently diagnosed here with a GI bleed. On further questioning she says her stools have been dark, denies bright red blood, denies abdominal pain. She has not had a bowel movement since she came to the hospital. 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 She denies any past medical history or symptoms of reflux. She says she feels great this morning. She denies any symptoms of chest pain, palpitations. She admits to feeling short of breath and generalized weakness. Date of Admission Jun 20, 2023 at 17:58 Date Seen by a Provider: Jun 21, 2023 Time Seen by a Provider: 11:30 I consulted on this patient on 06/21/23 10:01 Attending Physician Melonie Sexton DO Admitting Physician Admitting Physician: Melonie Sexton DO Attending Physician: Melonie Sexton DO Consult Allergies and Home Medications Allergies Coded Allergies: Penicillins (Verified Allergy, Unknown, RASH, HAS HAD ROCEPHIN IN THE PAST W/O ISSUE, 09/27/16) clarithromycin (Verified Allergy, Unknown, 09/27/16) erythromycin base (Verified Allergy, Unknown, 09/27/16) fentanyl (Verified Allergy, Unknown, ITCHING, 06/21/23) levofloxacin (Verified Allergy, Unknown, 09/04/17) morphine (Verified Allergy, Unknown, itching, TAKES LORTAB AT HOME, 06/25/22) niacin (Verified Allergy, Unknown, HIVES, 06/21/23) Patient Home Medication List Acetaminophen (Tylenol Extra Strength) 500 Mg Tablet, 1,000 MG PO Q8H PRN for PAIN-MILD (1-4), (Reported) Entered as Reported by: CEASAR GOFF on 12/28/20 2631 Last Action: Reviewed Albuterol Sulfate (Ventolin Hfa) 1 Puff Puff, 1 PUFF IH Q4H PRN for SHORTNESS OF BREATH, (Reported) Entered as Reported by: CEASAR GOFF on 12/28/201454 Last Action: Reviewed Allopurinol (Allopurinol) 300 Mg Tablet, 300 MG PO DAILY, (Reported) Entered as Reported by: CEASAR GOFF on 12/28/201454 Last Action: Reviewed Aspirin (Aspirin EC) 81 Mg Tablet.dr, 81 MG PO DAILY Prescribed by: MELONIE SEXTON on 06/28/222031 Last Action: Reviewed Budesonide/Formoterol Fumarate (Symbicort 160-4.5 Mcg Inhaler) 10.2 Gm H fa.aer.ad, 2 PUFF IH BID, (Reported) Entered as Reported by: CAT RAHMAN on 10/06/211128 Last Action: Reviewed Duloxetine HCl (Cymbalta) 30 Mg Capsule.dr, 30 MG PO HS, (Reported) Entered as Reported by: YAQUELIN SHAHID on 06/06/221328 Last Action: Reviewed Furosemide (Lasix) 40 Mg Tablet, 40 MG PO DAILY, (Reported) Entered as Reported by: CAT RAHMAN on 10/06/211128 Last Action: Reviewed Hydrocodone/Acetaminophen (Hydrocodone-Acetamin 10-325 mg) 10 Mg-325 Mg Tablet, 1 EACH PO Q6H PRN for PAIN-MODERATE (5-7), (Reported) Entered as Reported by: KHOA LI on 06/21/22 1141 Last Action: Continued Isosorbide Mononitrate (Isosorbide Mononitrate ER) 30 Mg Tab.er.24h, 30 MG PO DAILY, (Reported) Entered as Reported by: YAQUELIN SHAHID on 06/06/221328 Last Action: Reviewed Levothyroxine Sodium (Levothyroxine Sodium) 112 Mcg Tablet, 112 MCG PO DAILY, (Reported) Entered as Reported by: CAT RAHMAN on 10/06/21 1200 Last Action: Reviewed Magnesium Oxide (Magnesium) 400 Mg Tablet, 400 MG PO DAILY, (Reported) Entered as Reported by: CAT RAHMAN on 10/06/211128 Last Action: Reviewed Montelukast Sodium (Montelukast Sodium) 10 Mg Tablet, 10 MG PO HS, (Reported) Entered as Reported by: CEASAR GOFF on 12/28/201454 Last Action: Reviewed Nitroglycerin (Nitroglycerin) 0.4 Mg Tab.subl, 0.4 MG SL UD PRN for CHEST PAIN, (Reported) Entered as Reported by: YAQUELIN SHAHID on 06/06/221328 Last Action: Reviewed Nystatin (Nystatin) 100,000 Unit/Ml Oral.susp, 4 ML PO BID PRN for THRUSH PREVENTION, (Reported) Entered as Reported by: KHOA LI on 06/21/22 114 Last Action: Reviewed Potassium Chloride (Potassium Chloride) 10 Meq Capsule.er, 10 MEQ PO DAILY, (Reported) Entered as Reported by: YAQUELIN SHAHID on 06/06/221328 Last Action: Reviewed Rosuvastatin Calcium (Crestor) 20 Mg Tablet, 20 MG PO HS, (Reported) Entered as Reported by: CAT RAHMAN on 10/06/21 112 Last Action: Reviewed Discontinued Medications Cholecalciferol (Vitamin D3) (Vitamin D3) 125 Mcg Capsule, 125 MCG PO DAILY, (Reported) Discontinued Reason: No Longer Taking Entered as Reported by: CEASAR GOFF on 12/28/20 1455 Last Action: Discontinued Clopidogrel Bisulfate (Clopidogrel) 75 Mg Tablet, 75 MG PO DAILY, (Reported) Discontinued Reason: No Longer Taking Entered as Reported by: KHOA LI on 06/21/22 114 Last Action: Discontinued Cyanocobalamin (Vitamin B-12) (Vitamin B-12) 1,000 Mcg Tablet, 1,000 MCG PO DAILY@0700 Discontinued Reason: No Longer Taking Prescribed by: MELONIE SEXTON on 06/28/222031 Last Action: Discontinued Dronedarone HCl (Multaq) 400 Mg Tablet, 400 MG PO BID Discontinued Reason: No Longer Taking Prescribed by: MELONIE SEXTON on 06/28/222031 Last Action: Discontinued Krill Oil (Krill Oil) 500 Mg Capsule, 500 MG PO HS, (Reported) Discontinued Reason: No Longer Taking Entered as Reported by: YAQUELIN SHAHID on 06/06/221328 Last Action: Discontinued Nebivolol HCl (Bystolic) 5 Mg Tablet, 2.5 MG PO BID, (Reported) Discontinued Reason: No Longer Taking Entered as Reported by: YAQUELIN SHAHID on 06/06/221328 Last Action: Discontinued Pantoprazole Sodium (Pantoprazole Sodium) 40 Mg Tablet., 40 MG PO DAILY Discontinued Reason: No Longer Taking Prescribed by: MELONIE SEXTON on 06/28/222031 Last Action: Discontinued Past Cgscsak-Pmxjyt-Cmlkwc Hx Patient Social History Tobacco Use?: Yes Smoking Status: Former Smoker Smokeless Tobacco Frequency: Former User Use of E-Cig and/or Vaping dev: No Substance use?: Yes Substance type: Caffeine Additional substance use comme: DIET COKE X2/DAY Substance frequency: Daily 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) Pt feels they are or have been: No Immunizations Up To Date Date of Influenza Vaccine: Jul 12, 2021 First/Initial COVID19 Vaccinat: 2020 Second COVID19 Vaccination Willie: 2020 Date of Pneumonia Vaccine: Jan 05, 2019 Seasonal Allergies Seasonal Allergies: No Current Status Advance Directives: Yes Advance Directive Location: Home Communicates: Verbally Primary Language: [place] Preferred Spoken Language: [place]ian Is interpretation needed?: No Sensory deficits: Vision impairment Past Medical History Surgeries: Abdominal, Coronary Stent, Hysterectomy, Orthopedic COPD Atrial Fibrillation, Coronary Artery Disease, Hypertension Neuropathy Renal Failure, UTI-Chronic Gastroesophageal Reflux Arthritis, Chronic Back Pain, Fractures Hyperthyroidism Cataract Loss of Vision: Denies Hearing Impairment: Hard of Hearing Anxiety, Depression Eczema, Recent Skin Changes Blood Disorders: No Adverse Reaction/Blood Tranf: No Family Medical History Cardiovascular disease 19 FATHER 19 MOTHER G8 BROTHER G8 BROTHER FH: CHF (congestive heart failure) 19 MOTHER G8 BROTHER Myocardial infarction 19 FATHER G8 BROTHER G8 BROTHER Heart Disease Review of Systems Constitutional: see HPI EENTM: no symptoms reported Respiratory: see HPI, dyspnea on exertion, short of breath Cardiovascular: no symptoms reported, see HPI Gastrointestinal: see HPI; No abdominal pain, No heartburn; melena Psychiatric/Neurological: No Symptoms Reported All Other Systems Reviewed Negative Unless Noted: Yes Physical Exam Vital Signs Vital Signs - First Documented 06/20/23 06/20/23 18:35 19:50 Temp 36.2 Pulse 82 Resp 20 B/P (MAP) 125/70 (88) Pulse Ox 100 O2 Delivery Nasal Cannula O2 Flow Rate 3.00 Capillary Refill : Height, Weight, BMI Height: 5'4.00" Weight: 160lbs. 4.0oz. [id number]; 34.57 BMI Method:Estimated General Appearance: No Apparent Distress, WD/WN Neck: Normal Inspection, Supple Cardiovascular: Regular Rate, Rhythm, No Edema, No JVD, No Murmur, Normal Peripheral Pulses Extremity: Normal Inspection, No Pedal Edema Neurologic/Psychiatric: Alert, Normal Mood/Affect Skin: Normal Color, Warm/Dry Assessment/Plan Assessment and Plan - Upper GI bleed > Hgb 7.5 this morning > has received two units of blood since admission > possibility to scope tomorrow with Dr. Yu > continue to monitor H+H and transfuse further as necessary > hold aspirin - Hypertension > BP stable this morning at 120/59 (MAP 79) > continue to monitor - Coronary artery disease - Atrial fibrillation - COPD Admission Diagnosis GI bleed Clinical Quality Measures DVT/VTE Risk/Contraindication: Contraindications-Pharm: Pt at low risk Other: ALMA DELIA MAC Jun 21, 2023 10:06
--- NOTE | 2023-06-21 10:36 | History & Physical ---
ALMA DELIA LIRA 06/21/23 1036: History of Present Illness History of Present Illness Reason for visit/HPI Gem Noland is a 77 year old female with past medical history significant for CAD with previous MA with CABG, atrial fibrillation, COPD, 2 prior CVA's, HTN, diastolic heart failure. She came into the hospital yesterday evening after having labs drawn as an outpatient that showed a hemoglobin of 7.5. She was subsequently diagnosed here with a GI bleed. On further questioning she says her stools have been dark, denies bright red blood, denies abdominal pain. She has not had a bowel movement since she came to the hospital. 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 She denies any past medical history or symptoms of reflux. She says she feels great this morning. She denies any symptoms of chest pain, palpitations. She admits to feeling short of breath and generalized w eakness. Date of Admission Jun 20, 2023 at 17:58 Date Seen by a Provider: Jun 21, 2023 Time Seen by a Provider: 11:30 I consulted on this patient on 06/21/23 10:31 Attending Physician Melonie Sexton DO Admitting Physician Admitting Physician: Melonie Sexton DO Attending Physician: Melonie Sexton DO Consult Allergies and Home Medications Allergies Coded Allergies: Penicillins (Verified Allergy, Unknown, RASH, HAS HAD ROCEPHIN IN THE PAST W/O ISSUE, 09/27/16) clarithromycin (Verified Allergy, Unknown, 09/27/16) erythromycin base (Verified Allergy, Unknown, 09/27/16) fentanyl (Verified Allergy, Unknown, ITCHING, 06/21/23) levofloxacin (Verified Allergy, Unknown, 09/04/17) morphine (Verified Allergy, Unknown, itching, TAKES LORTAB AT HOME, 06/25/22) niacin (Verified Allergy, Unknown, HIVES, 06/21/23) Patient Home Medication List Acetaminophen (Tylenol Extra Strength) 500 Mg Tablet, 1,000 MG PO Q8H PRN for PAIN-MILD (1-4), (Reported) Entered as Reported by: CEASAR GOFF on 12/28/20 9171 Last Action: Continued Albuterol Sulfate (Ventolin Hfa) 90 Mcg Hfa.aer.ad, 2 PUFF IH Q4H PRN for SHORTN ESS OF BREATH, (Reported) Entered as Reported by: CEASAR GOFF on 12/28/201454 Last Action: Continued Allopurinol (Allopurinol) 300 Mg Tablet, 300 MG PO DAILY, (Reported) Entered as Reported by: CEASAR GOFF on 12/28/201454 Last Action: Continued Aspirin (Aspirin EC) 81 Mg Tablet.dr, 81 MG PO DAILY, (Reported) Entered as Reported by: KHOA LI on 06/21/231118 Last Action: Held Budesonide/Formoterol Fumarate (Symbicort 160-4.5 Mcg Inhaler) 10.2 Gm Hfa.aer.ad, 2 PUFF IH BID, (Reported) Entered as Reported by: CAT RAHMAN on 10/06/211128 Last Action: Converted Cholecalciferol (Vitamin D3) (Vitamin D3) 50 Mcg (2000 Unit) Capsule, 50 MCG PO DAILY, (Reported) Entered as Reported by: KHOA LI on 06/21/231118 Last Action: Converted Duloxetine HCl (Cymbalta) 30 Mg Capsule., 30 MG PO HS, (Reported) Entered as Reported by: YAQUELIN SHAHID on 06/06/22 1329 Last Action: Continued Ferrous Sulfate (Ferrous Sulfate) 325 Mg (65 Mg Iron) Tablet, 325 MG PO HS, (Reported) Entered as Reported by: KHOA LI on 06/21/231118 Last Action: Held Folic Acid (Folic Acid) 1 Mg Tablet, 1 MG PO DAILY, (Reported) Entered as Reported by: KHOA LI on 06/21/231118 Last Action: Continued Furosemide (Lasix) 40 Mg Tablet, 40 MG PO DAILY, (Reported) Entered as Reported by: CAT RAHMAN on 10/06/211128 Last Action: Continued Hydrocodone/Acetaminophen (Hydrocodone-Acetamin 10-325 mg) 10 Mg-325 Mg Tablet, 1 EACH PO DAILY PRN for PAIN-MODERATE (5-7), (Reported) Entered as Reported by: KHOA LI on 06/21/22 1141 Last Action: Reviewed Levothyroxine Sodium (Levothyroxine Sodium) 112 Mcg Tablet, 112 MCG PO DAILY, (Reported) Entered as Reported by: CAT RAHMAN on 10/06/21 1200 Last Action: Continued Magnesium Oxide (Magnesium) 400 Mg Tablet, 400 MG PO DAILY, (Reported) Entered as Reported by: CAT RAHMAN on 10/06/211128 Last Action: Converted Montelukast Sodium (Montelukast Sodium) 10 Mg Tablet, 10 MG PO HS, (Reported) Entered as Reported by: CEASAR GOFF on 12/28/201454 Last Action: Continued Nystatin (Nystatin) 100,000 Unit/Ml Oral.susp, 4 ML PO BID, (Reported) Entered as Reported by: KHOA LI on 06/21/22 114 Last Action: Continued Potassium Chloride (Potassium Chloride) 10 Meq Capsule.er, 10 MEQ PO DAILY, (Reported) Entered as Reported by: YAQUELIN SHAHID on 06/06/22 1329 Last Action: Converted Rivaroxaban (Xarelto Tablet) 15 Mg Tablet, 15 MG PO HS, (Reported) Entered as Reported by: KHOA LI on 06/21/23 111 Last Action: Held Rosuvastatin Calcium (Crestor) 20 Mg Tablet, 20 MG PO HS, (Reported) Entered as Reported by: CAT RAHMAN on 10/06/211128 Last Action: Continued Discontinued Medications Aspirin (Aspirin EC) 81 Mg Tablet.dr, 81 MG PO DAILY Discontinued Reason: Duplicate Order Prescribed by: MELONIE SEXTON on 06/28/222031 Last Action: Discontinued Cholecalciferol (Vitamin D3) (Vitamin D3) 125 Mcg Capsule, 125 MCG PO DAILY, (Reported) Discontinued Reason: No Longer Taking Entered as Reported by: CEASAR GOFF on 12/28/201454 Last Action: Discontinued Clopidogrel Bisulfate (Clopidogrel) 75 Mg Tablet, 75 MG PO DAILY, (Reported) Discontinued Reason: No Longer Taking Entered as Reported by: KHOA LI on 06/21/221140 Last Action: Discontinued Cyanocobalamin (Vitamin B-12) (Vitamin B-12) 1,000 Mcg Tablet, 1,000 MCG PO DAILY@0700 Discontinued Reason: No Longer Taking Prescribed by: MELONIE SEXTON on 06/28/222031 Last Action: Discontinued Dronedarone HCl (Multaq) 400 Mg Tablet, 400 MG PO BID Discontinued Reason: No Longer Taking Prescribed by: MELONIE SEXTON on 06/28/222031 Last Action: Discontinued Krill Oil (Krill Oil) 500 Mg Capsule, 500 MG PO HS, (Reported) Discontinued Reason: No Longer Taking Entered as Reported by: YAQUELIN SHAHID on 06/06/221328 Last Action: Discontinued Nebivolol HCl (Bystolic) 5 Mg Tablet, 2.5 MG PO BID, (Reported) Discontinued Reason: No Longer Taking Entered as Reported by: YAQUELIN SHAHID on 06/06/221328 Last Action: Discontinued Nitroglycerin (Nitroglycerin) 0.4 Mg Tab.subl, 0.4 MG SL UD PRN for CHEST PAIN, (Reported) Discontinued Reason: No Longer Taking Entered as Reported by: YAQUELIN SHAHID on 06/06/221328 Last Action: Discontinued Pantoprazole Sodium (Pantoprazole Sodium) 40 Mg Tablet.dr, 40 MG PO DAILY Discontinued Reason: No Longer Taking Prescribed by: MELONIE SEXTON on 06/28/222031 Last Action: Discontinued Past Nlldisi-Txwamc-Suorff Hx Patient Social History Tobacco Use?: Yes Smoking Status: Former Smoker Smokeless Tobacco Frequency: Former User Use of E-Cig and/or Vaping dev: No Substance use?: Yes Substance type: Caffeine Additional substance use comme: DIET COKE X2/DAY Substance frequency: Daily 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) Pt feels they are or have been: No Immunizations Up To Date Date of Influenza Vaccine: Jul 12, 2021 First/Initial COVID19 Vaccinat: 2020 Second COVID19 Vaccination Willie: 2020 Date of Pneumonia Vaccine: Jan 05, 2019 Seasonal Allergies Seasonal Allergies: No Current Status Advance Directives: Yes Advance Directive Location: Home Communicates: Verbally Primary Language: Polish Preferred Spoken Language: Polish Is interpretation needed?: No Sensory deficits: Vision impairment Past Medical History Surgeries: Abdominal, Coronary Stent, Hysterectomy, Orthopedic COPD Atrial Fibrillation, Coronary Artery Disease, Hypertension Neuropathy Renal Failure, UTI-Chronic Gastroesophageal Reflux Arthritis, Chronic Back Pain, Fractures Hyperthyroidism Cataract Loss of Vision: Denies Hearing Impairment: Hard of Hearing Anxiety, Depression Eczema, Recent Skin Changes Blood Disorders: No Adverse Reaction/Blood Tranf: No Family Medical History Cardiovascular disease 19 FATHER 19 MOTHER G8 BROTHER G8 BROTHER FH: CHF (congestive heart failure) 19 MOTHER G8 BROTHER Myocardial infarction 19 FATHER G8 BROTHER G8 BROTHER Heart Disease Review of Systems Constitutional: see HPI, weakness Respiratory: see HPI, dyspnea on exertion, short of breath Cardiovascular: no symptoms reported, see HPI; No chest pain; edema; No palpitations; vascular heart diseas Gastrointestinal: see HPI; No abdominal pain, No heartburn; melena Skin: no symptoms reported Psychiatric/Neurological: No Symptoms Reported Physical Exam Vital Signs Vital Signs - First Documented 06/20/23 06/20/23 18:35 19:50 Temp 36.2 Pulse 82 Resp 20 B/P (MAP) 125/70 (88) Pulse Ox 100 O2 Delivery Nasal Cannula O2 Flow Rate 3.00 Capillary Refill : Height, Weight, BMI Height: 5'4.00" Weight: 160lbs. 4.0oz. 72.099394lb; 34.57 BMI Method:Estimated General Appearance: No Apparent Distress, WD/WN, Obese Neck: Normal Inspection, Supple Respiratory: Chest Non Tender, Lungs Clear, Normal Breath Sounds, No Accessory Muscle Use, No Respiratory Distress Cardiovascular: Regular Rate, Rhythm, No Edema, No Murmur, Normal Peripheral Pulses Extremity: Normal Capillary Refill, Normal Inspection, No Pedal Edema Neurologic/Psychiatric: Alert, Normal Mood/Affect Skin: Normal Color, Warm/Dry Assessment/Plan Assessment and Plan Upper GI bleed > Hgb 7.5 this morning > has received two units of blood since admission > scope confirmed tomorrow with Dr. Yu > continue to monitor H+H and transfuse further as necessary > hold aspirin and xarelto > move to 4th floor - Hypertension > BP stable this morning at 120/59 (MAP 79) > continue to monitor - Coronary artery disease - Atrial fibrillation - COPD Admission Diagnosis GI bleed Clinical Quality Measures Admission Status Admission Dx GI bleed DVT/VTE Risk/Contraindication: Contraindications-Pharm: Pt at low risk Other: MELONIE FAYE DO 06/21/232039: History of Present Illness History of Present Illness Reason for visit/HPI Chief complaint: Severe symptomatic anemia with hematochezia HPI: This is a 77-year-old female clinic patient of mine who I directly admitted after I assessed her in the office after report of hematochezia and noted hemoglobin had decreased to 7.5 on labs the day before after 1 unit of blood given by Dr. Handy. Xarelto and aspirin will be held per cardiology. General surgery will be consulting for EGD and colonoscopy. Allergies and Home Medications Allergies Coded Allergies: Penicillins (Verified Allergy, Unknown, RASH, HAS HAD ROCEPHIN IN THE PAST W/O ISSUE, 09/27/16) clarithromycin (Verified Allergy, Unknown, 09/27/16) erythromycin base (Verified Allergy, Unknown, 09/27/16) fentanyl (Verified Allergy, Unknown, ITCHING, 06/21/23) levofloxacin (Verified Allergy, Unknown, 09/04/17) morphine (Verified Allergy, Unknown, itching, TAKES LORTAB AT HOME, 06/25/22) niacin (Verified Allergy, Unknown, HIVES, 06/21/23) Patient Home Medication List Home Medication List Reviewed: Yes Acetaminophen (Tylenol Extra Strength) 500 Mg Tablet, 1,000 MG PO Q8H PRN for PAIN-MILD (1-4), (Reported) Entered as Reported by: CEASAR GOFF on 12/28/201454 Last Action: Continued Albuterol Sulfate (Ventolin Hfa) 90 Mcg Hfa.aer.ad, 2 PUFF IH Q4H PRN for SHORTNESS OF BREATH, (Reported) Entered as Reported by: CEASAR GOFF on 12/28/201454 Last Action: Continued Allopurinol (Allopurinol) 300 Mg Tablet, 300 MG PO DAILY, (Reported) Entered as Reported by: CEASAR GOFF on 12/28/201454 Last Action: Continued Aspirin (Aspirin EC) 81 Mg Tablet., 81 MG PO DAILY, (Reported) Entered as Reported by: KHOA LI on 06/21/231118 Last Action: Held Budesonide/Formoterol Fumarate (Symbicort 160-4.5 Mcg Inhaler) 10.2 Gm Hfa.aer.ad, 2 PUFF IH BID, (Reported) Entered as Reported by: CAT RAHMAN on 10/06/21 112 Last Action: Converted Cholecalciferol (Vitamin D3) (Vitamin D3) 50 Mcg (2000 Unit) Capsule, 50 MCG PO DAILY, (Reported) Entered as Reported by: KHOA LI on 06/21/23 111 Last Action: Converted Duloxetine HCl (Cymbalta) 30 Mg Capsule., 30 MG PO HS, (Reported) Entered as Reported by: YAQUELIN SHAHID on 06/06/22 1329 Last Action: Continued Ferrous Sulfate (Ferrous Sulfate) 325 Mg (65 Mg Iron) Tablet, 325 MG PO HS, (Reported) Entered as Reported by: KHOA LI on 06/21/23 111 Last Action: Held Folic Acid (Folic Acid) 1 Mg Tablet, 1 MG PO DAILY, (Reported) Entered as Reported by: KHOA LI on 06/21/23 111 Last Action: Continued Furosemide (Lasix) 40 Mg Tablet, 40 MG PO DAILY, (Reported) Entered as Reported by: CAT RAHMAN on 10/06/21 112 Last Action: Continued Hydrocodone/Acetaminophen (Hydrocodone-Acetamin 10-325 mg) 10 Mg-325 Mg Tablet, 1 EACH PO DAILY PRN for PAIN-MODERATE (5-7), (Reported) Entered as Reported by: KHOA LI on 06/21/22 114 Last Action: Reviewed Levothyroxine Sodium (Levothyroxine Sodium) 112 Mcg Tablet, 112 MCG PO DAILY, (Reported) Entered as Reported by: CAT RAHMAN on 10/06/21 1200 Last Action: Continued Magnesium Oxide (Magnesium) 400 Mg Tablet, 400 MG PO DAILY, (Reported) Entered as Reported by: CAT RAHMAN on 10/06/21 112 Last Action: Converted Montelukast Sodium (Montelukast Sodium) 10 Mg Tablet, 10 MG PO HS, (Reported) Entered as Reported by: CEASAR GOFF on 12/28/20 1455 Last Action: Continued Nystatin (Nystatin) 100,000 Unit/Ml Oral.susp, 4 ML PO BID, (Reported) Entered as Reported by: KHOA LI on 06/21/22 114 Last Action: Continued Potassium Chloride (Potassium Chloride) 10 Meq Capsule.er, 10 MEQ PO DAILY, (Reported) Entered as Reported by: YAQUELIN SHAHID on 06/06/22 132 Last Action: Converted Rivaroxaban (Xarelto Tablet) 15 Mg Tablet, 15 MG PO HS, (Reported) Entered as Reported by: KHOA LI on 06/21/23 111 Last Action: Held Rosuvastatin Calcium (Crestor) 20 Mg Tablet, 20 MG PO HS, (Reported) Entered as Reported by: CAT RAHMAN on 10/06/21 1129 Last Action: Continued Discontinued Medications Aspirin (Aspirin EC) 81 Mg Tablet., 81 MG PO DAILY Discontinued Reason: Duplicate Order Prescribed by: MELONIE SEXTON on 06/28/222031 Last Action: Discontinued Cholecalciferol (Vitamin D3) (Vitamin D3) 125 Mcg Capsule, 125 MCG PO DAILY, (Reported) Discontinued Reason: No Longer Taking Entered as Reported by: CEASAR GOFF on 12/28/20 1455 Last Action: Discontinued Clopidogrel Bisulfate (Clopidogrel) 75 Mg Tablet, 75 MG PO DAILY, (Reported) Discontinued Reason: No Longer Taking Entered as Reported by: KHOA LI on 06/21/22 1141 Last Action: Discontinued Cyanocobalamin (Vitamin B-12) (Vitamin B-12) 1,000 Mcg Tablet, 1,000 MCG PO DAILY@0700 Discontinued Reason: No Longer Taking Prescribed by: MELONIE SEXTON on 06/28/222031 Last Action: Discontinued Dronedarone HCl (Multaq) 400 Mg Tablet, 400 MG PO BID Discontinued Reason: No Longer Taking Prescribed by: MELONIE SEXTON on 06/28/222031 Last Action: Discontinued Krill Oil (Krill Oil) 500 Mg Capsule, 500 MG PO HS, (Reported) Discontinued Reason: No Longer Taking Entered as Reported by: YAQUELIN SHAHID on 06/06/221328 Last Action: Discontinued Nebivolol HCl (Bystolic) 5 Mg Tablet, 2.5 MG PO BID, (Reported) Discontinued Reason: No Longer Taking Entered as Reported by: YAQUELIN SHAHID on 06/06/221328 Last Action: Discontinued Nitroglycerin (Nitroglycerin) 0.4 Mg Tab.subl, 0.4 MG SL UD PRN for CHEST PAIN, (Reported) Discontinued Reason: No Longer Taking Entered as Reported by: YAQUELIN SHAHID on 06/06/221328 Last Action: Discontinued Pantoprazole Sodium (Pantoprazole Sodium) 40 Mg Tablet., 40 MG PO DAILY Discontinued Reason: No Longer Taking Prescribed by: MELONIE SEXTON on 06/28/222031 Last Action: Discontinued Past Jwbqwxy-Drrnlp-Blbpiy Hx Patient Social History Marrital Status: cohabiting Employed/Student: retired Smoking Status: Former Smoker Past Medical History Surgeries: Orthopedic Atrial Fibrillation, Cardiomyopathy, Chronic Edema/Swelling, Coronary Artery Disease, High Cholesterol, Hypertension Family Medical History Cardiovascular disease 19 FATHER 19 MOTHER G8 BROTHER G8 BROTHER FH: CHF (congestive heart failure) 19 MOTHER G8 BROTHER Myocardial infarction 19 FATHER G8 BROTHER G8 BROTHER Review of Systems Constitutional: see HPI, weakness Physical Exam General Appearance: No Apparent Distress, WD/WN, Chronically ill, Obese Respiratory: Lungs Clear, Normal Breath Sounds Assessment/Plan Assessment and Plan Monitor hemoglobin EGD and colonoscopy We will move to fourth floor Admission Diagnosis Admission Status: Inpatient Order (span 2 midnights) Reason for Inpatient Admission: GI bleed with symptomatic anemia requiring transfusions Supervisory-Addendum Brief Verification & Attestation Participated in pt care: history, MDM, physical Personally performed: exam, history, MDM, supervision of care Care discussed with: Medical Student Procedures: n/a Results interpretation: Verified all documentation Verification and Attestation of Medical Student E/M Service A medical student performed and documented this service in my presence. I revi ewed and verified all information documented by the medical student and made modifications to such information, when appropriate. I personally performed the physical exam and medical decision making. Melonie Sexton, Jun 21, 2023,20:40 ALMA DELIA LIRA Jun 21, 2023 10:36 MELONIE SEXTON DO Jun 21, 2023 20:40
--- NOTE | 2023-06-21 10:39 | Consultation-Cardiology ---
HPI-Cardiology Cardiology Consultation Date of Consultation 06/21/23 Date of Admission Time Seen by Provider: 10:38 Indication: CAD Home Medications & Allergies Allergies: Coded Allergies: Penicillins (Verified Allergy, Unknown, RASH, HAS HAD ROCEPHIN IN THE PAST W/O ISSUE, 09/27/16) clarithromycin (Verified Allergy, Unknown, 09/27/16) erythromycin base (Verified Allergy, Unknown, 09/27/16) fentanyl (Verified Allergy, Unknown, ITCHING, 06/21/23) levofloxacin (Verified Allergy, Unknown, 09/04/17) morphine (Verified Allergy, Unknown, itching, TAKES LORTAB AT HOME, 06/25/22) niacin (Verified Allergy, Unknown, HIVES, 06/21/23) BAF-Nwpblr-Vqjfae Hx Patient Social History Smoking Status: Former Smoker Former smoker/When Quit: Oct 28, 2006 Type Used: Cigarettes Recent Hopitalizations: No 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) Substance type: Caffeine Immunizations Up To Date Tetanus Booster (TDap): Less than 5yrs Date of Pneumonia Vaccine: Jan 05, 2019 Date of Influenza Vaccine: Jul 12, 2021 Family Medical History Significant Family History: Heart Disease Family History: Cardiovascular disease 19 FATHER 19 MOTHER G8 BROTHER G8 BROTHER FH: CHF (congestive heart failure) 19 MOTHER G8 BROTHER Myocardial infarction 19 FATHER G8 BROTHER G8 BROTHER Review of Systems-General Review of Systems Constitutional: see HPI, weakness EENTM: no symptoms reported Respiratory: see HPI, dyspnea on exertion, short of breath Cardiovascular: no symptoms reported, see HPI, edema, vascular heart diseas Gastrointestinal: see HPI, melena Skin: no symptoms reported Psychiatric/Neurological: No Symptoms Reported All Other Systems Reviewed Negative Unless Noted: Yes Physical Exam Physical Exam Vital Signs Vital Signs - First Documented 06/20/23 06/20/23 18:35 19:50 Temp 36.2 Pulse 82 Resp 20 B/P (MAP) 125/70 (88) Pulse Ox 100 O2 Delivery Nasal Cannula O2 Flow Rate 3.00 Capillary Refill : Height, Weight, BMI Height: 5'4.00" Weight: 160lbs. 4.0oz. 72.344162qf; 34.57 BMI Method:Estimated General Appearance: No Apparent Distress, WD/WN, Obese Neck: Normal Inspection, Supple Respiratory: Chest Non Tender, Lungs Clear, Normal Breath Sounds, No Accessory Muscle Use, No Respiratory Distress Cardiovascular: Regular Rate, Rhythm, No Edema, No Murmur, Normal Peripheral Pulses Extremity: Normal Capillary Refill, Normal Inspection, No Pedal Edema Neurologic/Psychiatric: Alert, Normal Mood/Affect Skin: Normal Color, Warm/Dry Clinical Quality Measures DVT/VTE Risk/Contraindication: Contraindications-Pharm: Pt at low risk Other: DARSHAN NAVARRO MD Jun 21, 2023 10:38
--- NOTE | 2023-06-21 10:53 | Consultation-Cardiology ---
HPI-Cardiology Cardiology Consultation Date of Consultation 06/21/23 Date of Admission Time Seen by Provider: [id number] Indication: CAD HPI 77 years old lady with history of coronary artery disease, hypertension hyperlipidemia, has been having generalized weakness, fatigue and increasing shortness of breath. She has been having recurrent GI bleed. Came into the emergency room for increasing weakness and noted to have significant anemia. Patient was seen at bedside laying down comfortably, feeling slightly better, received blood transfusion. Home Medications & Allergies Allergies: Coded Allergies: Penicillins (Verified Allergy, Unknown, RASH, HAS HAD ROCEPHIN IN THE PAST W/O ISSUE, 09/27/16) clarithromycin (Verified Allergy, Unknown, 09/27/16) erythromycin base (Verified Allergy, Unknown, 09/27/16) fentanyl (Verified Allergy, Unknown, ITCHING, 06/21/23) levofloxacin (Verified Allergy, Unknown, 09/04/17) morphine (Verified Allergy, Unknown, itching, TAKES LORTAB AT HOME, 06/25/22) niacin (Verified Allergy, Unknown, HIVES, 06/21/23) Home Medication List Reviewed: Yes ADR-Efppoe-Zdeebh Hx Patient Social History Marital Status: Employed/Student: retired Smoking Status: Former Smoker Former smoker/When Quit: Oct 28, 2006 Type Used: Cigarettes Recent Hopitalizations: No 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) Substance type: Caffeine Immunizations Up To Date Tetanus Booster (TDap): Less than 5yrs Date of Pneumonia Vaccine: Jan 05, 2019 Date of Influenza Vaccine: Jul 12, 2021 Past Medical History Discussed below Family Medical History Significant Family History: Heart Disease Family History: Cardiovascular disease 19 FATHER 19 MOTHER G8 BROTHER G8 BROTHER FH: CHF (congestive heart failure) 19 MOTHER G8 BROTHER Myocardial infarction 19 FATHER G8 BROTHER G8 BROTHER Review of Systems-General Review of Systems Constitutional: see HPI, weakness EENTM: no symptoms reported Respiratory: see HPI, dyspnea on exertion, short of breath Cardiovascular: no symptoms reported, see HPI, edema, vascular heart diseas Gastrointestinal: see HPI, melena Genitourinary: no symptoms reported, see HPI Musculoskeletal: no symptoms reported, see HPI Skin: no symptoms reported Psychiatric/Neurological: No Symptoms Reported All Other Systems Reviewed Negative Unless Noted: Yes Reviewed Test Results Reviewed Test Results Lab Laboratory Tests Test 06/20/23 18:38 06/21/23 02:22 Range/Units White Blood Count 11.7 H 8.3 4.3-11.0 10^3/uL Red Blood Count 2.17 L 2.39 L 3.80-5.11 10^6/uL Hemoglobin 7.0 L 7.5 L 11.5-16.0 g/dL Hematocrit 22 L 23 L 35-52 % Mean Corpuscular Volume 102 H 98 80-99 fL Mean Corpuscular Hemoglobin 32 31 25-34 pg Mean Corpuscular Hemoglobin Concent 32 32 32-36 g/dL Red Cell Distribution Width 18.0 H 19.5 H 10.0-14.5 % Platelet Count 195 165 130-400 10^3/uL Mean Platelet Volume 9.3 9.6 9.0-12.2 fL Immature Granulocyte % (Auto) 1 1 % Neutrophils (%) (Auto) 95 H 90 H 42-75 % Lymphocytes (%) (Auto) 3 L 6 L 12-44 % Monocytes (%) (Auto) 1 3 0-12 % Eosinophils (%) (Auto) 0 0 0-10 % Basophils (%) (Auto) 0 0 0-10 % Neutrophils # (Auto) 11.1 H 7.5 1.8-7.8 10^3/uL Lymphocytes # (Auto) 0.3 L 0.5 L 1.0-4.0 10^3/uL Monocytes # (Auto) 0.2 0.2 0.0-1.0 10^3/uL Eosinophils # (Auto) 0.0 0.0 0.0-0.3 10^3/uL Basophils # (Auto) 0.0 0.0 0.0-0.1 10^3/uL Immature Granulocyte # (Auto) 0.1 0.1 0.0-0.1 10^3/uL Neutrophils % (Manual) 87 % Lymphocytes % (Manual) 3 % Band Neutrophils 10 % Platelet Estimate ADEQUATE Basophilic Stippling SLIGHT Anisocytosis MODERATE Macrocytosis SLIGHT Sodium Level 140 138 135-145 MMOL/L Potassium Level 3.8 4.3 3.6-5.0 MMOL/L Chloride Level 103 100 98-107 MMOL/L Carbon Dioxide Level 27 28 21-32 MMOL/L Anion Gap 10 10 5-14 MMOL/L Blood Urea Nitrogen 18 18 7-18 MG/DL Creatinine 0.99 0.94 0.60-1.30 MG/DL Estimat Glomerular Filtration Rate 59 63 BUN/Creatinine Ratio 18 19 Glucose Level 137 H 119 H 70-105 MG/DL Calcium Level 9.1 8.7 8.5-10.1 MG/DL Corrected Calcium 9.2 9.0 8.5-10.1 MG/DL Total Bilirubin 0.5 0.8 0.1-1.0 MG/DL Aspartate Amino Transf (AST/SGOT) 17 16 5-34 U/L Alanine Aminotransferase (ALT/SGPT) 11 11 0-55 U/L Alkaline Phosphatase 97 86 40-136 U/L Total Protein 6.3 L 5.9 L 6.4-8.2 GM/DL Albumin 3.9 3.6 3.2-4.5 GM/DL Physical Exam Physical Exam Vital Signs Vital Signs - First Documented 06/20/23 06/20/23 18:35 19:50 Temp 36.2 Pulse 82 Resp 20 B/P (MAP) 125/70 (88) Pulse Ox 100 O2 Delivery Nasal Cannula O2 Flow Rate 3.00 Capillary Refill : Height, Weight, BMI Height: 5'4.00" Weight: 160lbs. 4.0oz. [id number]; 34.57 BMI Method:Estimated General Appearance: No Apparent Distress, WD/WN, Obese Eyes: Bilateral Eye Normal Inspection, Bilateral Eye PERRL, Bilateral Eye EOMI HEENT: PERRL/EOMI, TMs Normal, Normal ENT Inspection, Pharynx Normal, Moist Mucous Membranes Neck: Normal Inspection, Supple Respiratory: Chest Non Tender, Lungs Clear, Normal Breath Sounds, No Accessory Muscle Use, No Respiratory Distress Cardiovascular: Regular Rate, Rhythm, No Edema, No Murmur, Normal Peripheral Pulses Gastrointestinal: Normal Bowel Sounds, No Organomegaly, No Pulsatile Mass, Non Tender, Soft Back: Normal Inspection, No CVA Tenderness, No Vertebral Tenderness Extremity: Normal Capillary Refill, Normal Inspection, No Pedal Edema Neurologic/Psychiatric: Alert, Normal Mood/Affect Skin: Normal Color, Warm/Dry Lymphatic: No Adenopathy A/P-Cardiology Admission Diagnosis Anemia Shortness of breath Coronary artery disease Hypertension Assessment/Plan Anemia, most probably GI loss on top of anemia of chronic disease. Unable to tolerate Xarelto at this time. Has been receiving weekly blood transusion. Underwent capsule endoscopy with Dr. Hand, reporting negative. Receiving blood transfusion Continue to monitor Shortness of breath, angina equivalent, probably secondary to anemia and co ngestive heart failure. Restart home medication monitor History of chronic stable angina, maintained on long-acting nitroglycerin, under control. Paroxysmal atrial fibrillation/flutter, Patient was treated with amiodarone in the past and it was stopped due to the underlying lung disease and shortness of breath, patient is oxygen dependent Treated with Multaq and it was stopped due to the congestive heart failure She was intolerant to higher dose of beta-blockers due to bradycardia and syncope Currently tolerating Bystolic after increasing the dose to 5 mg daily Patient tolerating Bystolic, has been reviewed on uninterrupted oral a nticoagulation, I am planning to admit her to the hospital and start loading with sotalol and then we can consider cardioversion. Patient has failed attempt for cardioversion on October 06, 2021, referred to Dr. Miller at , underwent ablation in October 2021. Underwent repeat ablation with Dr. Lopes in September 2022. Patient reporting failed ablation and s/p A/V node ablation and MICRA Pacemaker in November 2022. Planning for Amulet procedure with Dr. Gutierres at in April 2023 Coronary artery disease, history of CABG 3 done in 2006. Cardiac catheterization was done in February 2014 showing patent LUNA to the LAD, 60 percent stenosis at the distal portion of the LUNA. The proximal LAD has 90 percent stenosis with good flow supply to the LAD system. The vein graft to the obtuse marginal branch is patent with excellent flow distally and the vein graft to the right coronary artery is patent with excellent flow distally. Normal left ventricular size and systolic function. Cardiac catheterization done January 02, 2021 showing Patent LUNA to LAd, VG to the RCA. VG to the obtuse marginal branch has mod stenosis at an area followed by aneurysmal dilatation. Occluded prox circumflex artery corrected by the vein graft. Occluded prox RCA corrected by the VG. Right PDA was small vessel disease distally. Severe mid LAd stenosis corrected with the LUNA with dual supply to the LAD territory. Underwent cardiac catheterization on June 06, 2022 with stenting to the VG to the circumflex artery using Skypoint stent 3.5x 23mm, patent LUNA to LAD and VG to the RCA with severe [place] CAD, small vessel disease. Maintained on ASA May stop aspirin at this time History of frequent premature ventricular contractions. Patient has episodes of frequent paroxysmal atrial tachycardia with wide-complex tachycardia, sees Dr. Miller at [facility]. Hypertension, restart home medication monitor blood pressure Hyperlipidemia, continue to monitor. History of carotid stenosis. Left carotid endarterectomy. Last ultrasound report showed moderate disease in the right carotid artery, more significant disease on the left side. Followed and managed by heart and vascular care. Continue to monitor. COPD, managment per Dr. Menjivar Pulmonary hypertension, follows with Dr. Menjivar Hypothyroidism followed and managed by primary care physician. Chronic renal insufficiency, patient is following with Dr. Erica Meza Clinical Quality Measures DVT/VTE Risk/Contraindication: Contraindications-Pharm: Pt at low risk Other: DARSHAN NAVARRO MD Jun 21, 2023 10:53
[2023-06-21] MEDS ORDERED: RIVA15TA2 PO (11:19)
[2023-06-21] MEDS ORDERED: CHOL20002 PO (11:19)
[2023-06-21] MEDS ORDERED: ASPI-1238 PO (11:19)
[2023-06-21] MEDS ORDERED: FOLI1TAB33 PO (11:19)
[2023-06-21] MEDS ORDERED: FERR-74 PO (11:19)
[2023-06-21] MEDS ORDERED: RT-ALBUTEROL SULF 2.5 MG/3 ML PRE-MIX VIAL IH PRN (12:00)
[2023-06-21] MEDS ORDERED: ACETAMINOPHEN 500 MG TABLET PO PRN (12:00)
[2023-06-21] MEDS ORDERED: NYSTATIN ORAL SUSP 5 ML UDC PO SCH (12:00)
[2023-06-21] MEDS ORDERED: FLUTICASONE/VILANTEROL 200/25 MCG (7 DOSES) IH SCH (12:00)
[2023-06-21 12:37] LABS: HEMOGLOBIN 9.3 g/dL (11.5-16.0)
--- NOTE | 2023-06-21 12:58 | Progress Note-Pre Operative ---
Pre-Operative Progress Note Date of Available H&P: Jun 21, 2023 Date H&P Reviewed: Jun 21, 2023 Time H&P Reviewed: 12:00 History & Physical: No changes noted Pre-Operative Diagnosis: anemia, hx PUD, hx hemorrhoidal bleed FEMI SANCHEZ MD Jun 21, 2023 12:58
--- NOTE | 2023-06-21 13:15 | CONSULTATION REPORT ---
DATE OF SERVICE: 06/21/2023 ATTENDING PRIMARY CARE PHYSICIAN: Melonie Estes DO HISTORY OF PRESENT ILLNESS: The patient is a 77-year-old female with a significant longstanding history of anemia as well as coronary artery disease. She reports that she has had issues with atrial fibrillation since approximately 2006. She then reports that she has had multiple ablation procedures as well as a pacemaker implantation. She was recently found to have coronary artery disease requiring a catheterization, angioplasty and stent, which was in 05/2022. She is currently on an anticoagulation regimen of aspirin 81 mg daily as well as Xarelto 15 mg daily. She also reports issues with anemia for years now. She reports that she has been as low as in the 5-gram range. This time around, she states that she had recent blood draw, which was in the 10 range; however, within approximately 1 week, this did decrease to 7.0. She does report exertional shortness of breath; however, this is not new and does have a history of COPD. She states that she has had endoscopy done before with the last EGD and colonoscopy approximately one year ago where she does not recall any active bleeding sources identified. Upon further questioning, she reports that she does have some mild episodes of heartburn as well as peptic ulcer disease and only takes [id number] medication for this. She also does report dark stools as well as constipation and has noticed some episodes of hemorrhoidal flareups as well as red blood per rectum, however, infrequent. Because she is on iron, she reports that her stools are relatively dark most of the time as well. Again, she was admitted and found to be anemic with a hemoglobin of 7. PAST MEDICAL HISTORY: Hypertension, coronary artery disease, atrial fibrillation, COPD, degenerative joint disease, cataracts, chronic urinary tract infection, peptic ulcer disease. PAST SURGICAL HISTORY: Total hysterectomy, knee arthroscopy. ALLERGIES: PENICILLIN, CLARITHROMYCIN, ERYTHROMYCIN, FENTANYL, LEVOFLOXACIN, MORPHINE, NIACIN. MEDICATIONS: Albuterol 90 mcg q.4 hours p.r.n., allopurinol 300 mg daily, aspirin 81 mg daily, Xarelto 15 mg daily, Symbicort 160/4.5 mcg daily, duloxetine 30 mg daily, iron 325 mg daily, folic acid 1 mg daily, furosemide 40 mg daily, hydrocodone p.r.n., levothyroxine 112 mcg daily, magnesium 400 mg daily, montelukast 10 mg daily, potassium 10 mEq daily, rosuvastatin 20 mg daily. SOCIAL HISTORY: Previous smoker, quit approximately 2005. Negative alcohol. Does drink approximately 3 josefa daily. FAMILY HISTORY: Noncontributory. VITAL SIGNS: Temperature 36.3, blood pressure 120/59, pulse 80, respirations 16, pulse ox 100% on 2 liters nasal cannula. REVIEW OF SYSTEMS: Well-nourished female, currently in no acute distress. She is not experiencing any shortness of breath or difficulty breathing. No chest pain, palpitations, diaphoresis. No nausea, vomiting with mild intermittent epigastric discomfort. No hematemesis, no coffee-ground emesis. History of hemorrhoidal flareups several times a year with a mild amount of self-limited red blood per rectum and dark stools. No fever, chills, no recent inadvertent weight loss. All other review of systems negative. PHYSICAL EXAMINATION: CHEST: Scattered rales and wheezes bilaterally. HEART: Regular. No murmurs. EXTREMITIES: No lower extremity edema. Negative Homans sign. HEENT: No scleral icterus. No cervical lymphadenopathy. ABDOMEN: Soft, nontender, nondistended. SKIN: Warm, dry. LABORATORY DATA: Hemoglobin 9.3 after 2 units packed red blood cells, hematocrit 29, WBC 8.3, platelets 165. BUN 18, creatinine 0.94. ASSESSMENT AND PLAN: A 77-year-old female with acute on chronic anemia with mild history of gastroesophageal reflux disease and peptic ulcer disease as well as history of hemorrhoidal flareups and red blood per rectum. Also, on anticoagulation for atrial fibrillation as well as coronary artery disease and status post angioplasty and stent placement in 05/2022. Due to her significant anemia as well as her symptomatology, we will proceed with an EGD and colonoscopy on this admission. 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
[2023-06-21] MEDS ORDERED: PATIENT MAY USE OWN MEDS, ALL MC SCH (13:30)
[2023-06-21] MEDS: MILK OF MAGNESIA 400 MG/5 ML 30 ML UDC PO SCH ×5 (14:07→22:26)
[2023-06-21] MEDS: FORMOTEROL IH SCH (19:44)
[2023-06-21] MEDS: BUDESONIDE IH SCH (19:44)
[2023-06-21] MEDS: MONTELUKAST 10 MG TABLET PO SCH (20:15)
[2023-06-21] MEDS: DULoxetine 30 MG CAPSULE PO SCH (20:15)
[2023-06-21] MEDS: ROSUVASTATIN 20 MG TABLET PO SCH (20:15)
[2023-06-21] MEDS: NYSTATIN ORAL SUSP 5 ML UDC PO SCH (20:16)
[2023-06-21] MEDS ORDERED: NON-FORMULARY MEDICATION 1 EA EA (Budesonide/Formoterol Fumarate (Symbicort 160-4.5 Mcg In IH SCH (21:00)
[2023-06-22] VITALS (10 sets, daily range): BP systolic 89–147; BP diastolic 52–76
[2023-06-22] MEDS: MILK OF MAGNESIA 400 MG/5 ML 30 ML UDC PO SCH ×7 (00:04→12:57)
[2023-06-22] MEDS: LEVOTHYROXINE 112 MCG TABLET PO SCH (05:14)
[2023-06-22] MEDS: POTASSIUM CHLORIDE 10 MEQ TABLET PO SCH (05:14)
[2023-06-22 05:16] LABS: BASOPHILS % (AUTO) 1 % (0-10); EOSINOPHILS # (AUTO) 0.2 10^3/uL (0.0-0.3); EOSINOPHILS % (AUTO) 3 % (0-10); HEMATOCRIT 27 % (35-52); HEMOGLOBIN 8.7 g/dL (11.5-16.0); LYMPHOCYTES # (AUTO) 1.2 10^3/uL (1.0-4.0); LYMPHOCYTES % (AUTO) 17 % (12-44); MEAN CORPUSCULAR HEMOGLOBIN 31 pg (25-34); MEAN CORPUSCULAR HGB CONC 33 g/dL (32-36); MEAN CORPUSCULAR VOLUME 96 fL (80-99); MEAN PLATELET VOLUME 9.6 fL (9.0-12.2); MONOCYTES # (AUTO) 0.6 10^3/uL (0.0-1.0); MONOCYTES % (AUTO) 8 % (0-12); NEUTROPHILS # (AUTO) 5.2 10^3/uL (1.8-7.8); NEUTROPHILS % (AUTO) 72 % (42-75); PLATELET COUNT 184 10^3/uL (130-400); WHITE BLOOD COUNT 7.2 10^3/uL (4.3-11.0)
[2023-06-22 05:23] LABS: ALBUMIN 3.8 GM/DL (3.2-4.5)
[2023-06-22 05:24] LABS: POTASSIUM 3.8 MMOL/L (3.6-5.0)
[2023-06-22 05:25] LABS: CALCIUM 9.1 MG/DL (8.5-10.1)
[2023-06-22 05:26] LABS: TOTAL PROTEIN 6.1 GM/DL (6.4-8.2)
[2023-06-22 05:28] LABS: BILIRUBIN,TOTAL 0.8 MG/DL (0.1-1.0)
[2023-06-22 05:30] LABS: CREATININE SERUM 1.23 MG/DL (0.60-1.30)
--- NOTE | 2023-06-22 06:21 | Progress Note ---
Subjective Date Seen by a Provider: Jun 22, 2023 Time Seen by a Provider: 11:00 Subjective/Events-last exam Patient just returned back to her room after EGD and colonoscopy Pouch from gastric surgery years ago seems to be the source of gastritis Hemorrhoids are also a blood loss source Holding Xarelto and aspirin approved by cardiology Hemoglobin stable but down a bit at 8.5 Iron infusions will be maintained Review of Systems General: Fatigue, Malaise Objective Exam Last Set of Vital Signs Vital Signs Date Time Temp Pulse Resp B/P (MAP) Pulse Ox O2 Delivery O2 Flow Rate FiO2 06/22/23 04:01 36.8 84 20 147/72 (97) 96 Nasal Cannula 2.00 Capillary Refill : I&O Intake and Output0 06/22/23 00:00 Intake Total 1850 ml Output Total 700 ml Balance 1150 ml Intake Oral 1850 ml Output Urine Total 700 ml # Voids 12 # Bowel Movements 8 General: Alert, Oriented X3, Cooperative, No Acute Distress Lungs: Clear to Auscultation, Normal Air Movement Heart: Regular Rate, Normal S1, Normal S2, No Murmurs Psych/Mental Status: Mental Status NL, Mood NL Results Lab Laboratory Tests 06/21/23 12:27: Hemoglobin 9.3#L, Hematocrit 29L 06/22/23 05:05: Hemoglobin 8.7L, Hematocrit 27L, White Blood Count 7.2, Red Blood Count 2.78L, Mean Corpuscular Volume 96, Mean Corpuscular Hemoglobin 31, Mean Corpuscular Hemoglobin Concent 33, Red Cell Distribution Width 19.2H, Platelet Count 184, Mean Platelet Volume 9.6, Immature Granulocyte % (Auto) 1, Neutrophils (%) (Auto) 72, Lymphocytes (%) (Auto) 17, Monocytes (%) (Auto) 8, Eosinophils (%) (Auto) 3, Basophils (%) (Auto) 1, Neutrophils # (Auto) 5.2, Lymphocytes # (Auto) 1.2, Monocytes # (Auto) 0.6, Eosinophils # (Auto) 0.2, Basophils # (Auto) 0.0, Immature Granulocyte # (Auto) 0.0, Sodium Level 143, Potassium Level 3.8, Chloride Level 100, Carbon Dioxide Level 34H, Anion Gap 9, Blood Urea Nitrogen 23H, Creatinine 1.23, Estimat Glomerular Filtration Rate 46, BUN/Creatinine Ratio 19, Glucose Level 94, Calcium Level 9.1, Corrected Calcium 9.3, Total Bilirubin 0.8, Aspartate Amino Transf (AST/SGOT) 21, Alanine Aminotransferase (ALT/SGPT) 12, Alkaline Phosphatase 84, Total Protein 6.1L, Albumin 3.8 Assessment/Plan Assessment/Plan Assess & Plan/Chief Complaint GI bleed with symptomatic anemia requiring iron infusions and transfusions > Hgb 8.5 this morning > has received two units of blood since admission > scope per Dr. Yu > continue to monitor H+H and transfuse further as necessary > hold aspirin and xarelto - Hypertension > BP stable this morning at 120/59 (MAP 79) > continue to monitor - Coronary artery disease - Atrial fibrillation - COPD O2 dependent due to chronic respiratory failure Plan: Supportive care Monitor hemoglobin Iron infusion Clinical Quality Measures Admission Status Admission Dx Monitor hemoglobin EGD and colonoscopy We will move to fourth floor DVT/VTE Risk/Contraindication: Contraindications-Pharm: Pt at low risk Other: AYUSH FAYE DO Jun 22, 2023 06:21
[2023-06-22] MEDS: FORMOTEROL IH SCH ×2 (07:03→19:36)
[2023-06-22] MEDS: NYSTATIN ORAL SUSP 5 ML UDC PO SCH ×3 (07:03→19:32)
[2023-06-22] MEDS: BUDESONIDE IH SCH ×2 (07:03→19:36)
[2023-06-22] MEDS: FOLIC ACID 1 MG TAB PO SCH (08:35)
[2023-06-22] MEDS: VITAMIN D3 25 MCG (1,000 UNITS) TABLET PO SCH (08:36)
[2023-06-22] MEDS: PANTOPRAZOLE 40 MG TABLET PO SCH ×2 (08:36→19:33)
[2023-06-22] MEDS: FUROSEMIDE 40 MG TABLET PO SCH (08:36)
[2023-06-22] MEDS: ALLOPURINOL 300 MG TABLET PO SCH (08:36)
[2023-06-22] MEDS: MAGNESIUM OXIDE 400 MG TABLET PO SCH (08:37)
[2023-06-22] MEDS: SENNOSIDES 8.6 MG TABLET PO SCH ×2 (08:38→19:36)
[2023-06-22] MEDS: DOCUSATE SODIUM 100 MG CAPSULE PO SCH ×2 (08:38→19:36)
[2023-06-22] MEDS ORDERED: IRON SUCROSE 200 MG/10 ML VIAL IV SCH (09:00)
[2023-06-22] MEDS ORDERED: NON-FORMULARY MEDICATION 1 EA EA (Potassium Chloride 10 MEQ) PO SCH (09:00)
[2023-06-22] MEDS ORDERED: NON-FORMULARY MEDICATION 1 EA EA (Cholecalciferol (Vitamin D3) (Vitamin D3) 50 MCG) PO SCH (09:00)
[2023-06-22] MEDS ORDERED: NON-FORMULARY MEDICATION 1 EA EA (Magnesium Oxide (Magnesium) 400 MG) PO SCH (09:00)
[2023-06-22] MEDS ORDERED: LACTATED RINGERS 1,000 ML 1,000 ML IV STA ×2 (10:27→13:29)
[2023-06-22] MEDS ORDERED: HURRICAINE EXT TUBE (BENZOCAINE) XX PRN ×2 (10:30→13:30)
[2023-06-22] MEDS ORDERED: LIDOCAINE JELLY 2% 6 ML SYRINGE MM PRN ×2 (10:30→13:30)
[2023-06-22] MEDS ORDERED: MIDAZOLAM INJ 2 MG/2 ML VIAL ONE (10:57)
[2023-06-22] MEDS ORDERED: LIDOCAINE JELLY 2% 6 ML SYRINGE ONE ×2 (11:16→11:21)
[2023-06-22] MEDS ORDERED: PHENYLEPHRINE 100 MCG/ML 10 ML (ANESTHESIA) SYR ONE (11:42)
--- NOTE | 2023-06-22 12:56 | Progress Note-Post Operative ---
Post-Operative Progess Note Surgeon (s)/Account Installer (s) Surgeon FEMI SANCHEZ MD Account Installer: vinay silva [employer] W[employer]ARD INSPECTOR Pre-Operative Diagnosis anemia, hx PUD, hx hemorrhoidal bleed Post-Operative Diagnosis reflux esophagitis(grade B), gastric pouchitis, patent stoma, moderate stomach remnant gastritis. chronic stage 3 ext and int hemorrhoids. Procedure & Operative Findings Date of Procedure 06/22/23 Procedure Performed/Findings EGD with bx, Colonoscopy. Anesthesia Type mac Estimated Blood Loss Estimated blood loss (mL): minimal Specimens/Packing Specimens Removed antrum, stomach pouch, ge jxn. FEMI SANCHEZ MD Jun 22, 2023 12:56
--- NOTE | 2023-06-22 13:09 | Cardiology Progress Note ---
Cardiology SOAP Progress Note Subjective: No significant cardiac complaints. Objective: I&O/Vital Signs 06/22/23 06/22/23 06/22/23 06/22/23 12:00 12:05 12:10 12:15 Pulse 40 79 79 79 Resp 16 16 16 16 Pulse Ox 100 100 100 100 O2 Delivery OxyMask OxyMask OxyMask OxyMask O2 Flow Rate 10.00 10.00 10.00 2.00 06/22/23 06/22/23 06/22/23 06/22/23 12:45 15:33 19:14 19:40 Temp 36.2 36.2 36.3 Pulse 80 80 80 Resp 18 16 18 B/P (MAP) 128/76 (93) 123/72 (89) 119/75 (90) Pulse Ox 99 100 100 O2 Delivery Room Air Nasal Cannula Room Air Nasal Cannula O2 Flow Rate 2.00 2.00 06/22/23 19:50 O2 Delivery Nasal Cannula O2 Flow Rate 2.00 06/22/23 00:00 Intake Total 1500 ml Output Total 700 ml Balance 800 ml Weight (Pounds): 160 Weight (Ounces): 4.0 Weight (Calculated Kilograms): [id number] Constitutional: AAO x 3 Respiratory: lungs clear to auscultation Cardiovascular: regular rate-rhythm Gastrointestional: soft Neurologic/Psychiatric: no motor/sensory deficits, alert, normal mood/affect, oriented x 3 Results/Procedures: Labs Laboratory Tests 06/22/23 05:05: White Blood Count 7.2, Red Blood Count 2.78L, Hemoglobin 8.7L, Hematocrit 27L, Mean Corpuscular Volume 96, Mean Corpuscular Hemoglobin 31, Mean Corpuscular Hemoglobin Concent 33, Red Cell Distribution Width 19.2H, Platelet Count 184, Mean Platelet Volume 9.6, Immature Granulocyte % (Auto) 1, Neutrophils (%) (Aut o) 72, Lymphocytes (%) (Auto) 17, Monocytes (%) (Auto) 8, Eosinophils (%) (Auto) 3, Basophils (%) (Auto) 1, Neutrophils # (Auto) 5.2, Lymphocytes # (Auto) 1.2, Monocytes # (Auto) 0.6, Eosinophils # (Auto) 0.2, Basophils # (Auto) 0.0, Immature Granulocyte # (Auto) 0.0, Sodium Level 143, Potassium Level 3.8, Chloride Level 100, Carbon Dioxide Level 34H, Anion Gap 9, Blood Urea Nitrogen 23H, Creatinine 1.23, Estimat Glomerular Filtration Rate 46, BUN/Creatinine Ratio 19, Glucose Level 94, Calcium Level 9.1, Corrected Calcium 9.3, Total Bilirubin 0.8, Aspartate Amino Transf (AST/SGOT) 21, Alanine Aminotransferase (ALT/SGPT) 12, Alkaline Phosphatase 84, Total Protein 6.1L, Albumin 3.8 A/P: Assessment/Dx: Anemia Shortness of breath Coronary artery disease Hypertension Paroxysmal atrial fibrillation Plan: Anemia, most probably GI loss on top of anemia of chronic disease. Unable to tolerate Xarelto at this time. Has been receiving weekly blood transusion. Underwent capsule endoscopy with Dr. Hand, reporting negative. Receiving blood transfusion Continue to monitor Shortness of breath, angina equivalent, probably secondary to anemia and congestive heart failure. Restart home medication monitor History of chronic stable angina, maintained on long-acting nitroglycerin, under control. Paroxysmal atrial fibrillation/flutter, Patient was treated with amiodarone in the past and it was stopped due to the u nderlying lung disease and shortness of breath, patient is oxygen dependent Treated with Multaq and it was stopped due to the congestive heart failure She was intolerant to higher dose of beta-blockers due to bradycardia and syncope Currently tolerating Bystolic after increasing the dose to 5 mg daily Patient tolerating Bystolic, has been reviewed on uninterrupted oral anticoagulation, I am planning to admit her to the hospital and start loading with sotalol and then we can consider cardioversion. Patient has failed attempt for cardioversion on October 06, 2021, referred to Dr. Miller at , underwent ablation in October 2021. Underwent repeat ablation with Dr. Lopes in September 2022. Patient reporting failed ablation and s/p A/V node ablation and MICRA Pacemaker in November 2022. Planning for Amulet procedure with Dr. Gutierres at in April 2023 Coronary artery disease, history of CABG 3 done in 2006. Cardiac catheterization was done in February 2014 showing patent LUNA to the LAD, 60 percent stenosis at the distal portion of the LUNA. The proximal LAD has 90 percent stenosis with good flow supply to the LAD system. The vein graft to the obtuse marginal branch is patent with excellent flow distally and the vein graft to the right coronary artery is patent with excellent flow distally. Normal left ventricular size and systolic function. Cardiac catheterization done January 02, 2021 showing Patent LUNA to LAd, VG to the RCA. VG to the obtuse marginal branch has mod stenosis at an area followed by aneurysmal dilatation. Occluded prox circumflex artery corrected by the vein graft. Occluded prox RCA corrected by the VG. Right PDA was small vessel disease distally. Severe mid LAd stenosis corrected with the LUNA with dual supply to the LAD territory. Underwent cardiac catheterization on June 06, 2022 with stenting to the VG to the circumflex artery using Skypoint stent 3.5x 23mm, patent LUNA to LAD and VG to the RCA with severe [place] CAD, small vessel disease. Maintained on ASA History of frequent premature ventricular contractions. Patient has episodes of frequent paroxysmal atrial tachycardia with wide-complex tachycardia, sees Dr. Miller at [facility]. Hypertension, restart home medication monitor blood pressure Hyperlipidemia, continue to monitor. History of carotid stenosis. Left carotid endarterectomy. Last ultrasound report showed moderate disease in the right carotid artery, more significant disease on the left side. Followed and managed by heart and vascular care. Continue to monitor. COPD, managment per Dr. Menjivar Pulmonary hypertension, follows with Dr. Menjivar Hypothyroidism followed and managed by primary care physician. Chronic renal insufficiency, patient is following with Cale Martin MD Jun 22, 2023 13:09
--- NOTE | 2023-06-22 13:12 | Anesthesia-General Post-Op ---
MAC Patient Condition Mental Status/LOC: Same as Preop Cardiovascular: Satisfactory Nausea/Vomiting: Absent Respiratory: Satisfactory Pain: Controlled Complications: Absent Post Op Complications Complications None Follow Up Care/Instructions Patient Instructions None needed. Anesthesiology Discharge Order Discharge Order Patient is doing well, no complaints, stable vital signs, no apparent adverse anesthesia problems. No complications reported per nursing. NHAN ALVAREZ CRNA Jun 22, 2023 13:12
[2023-06-22] MEDS: MONTELUKAST 10 MG TABLET PO SCH (19:33)
[2023-06-22] MEDS: DULoxetine 30 MG CAPSULE PO SCH (19:33)
[2023-06-22] MEDS: ROSUVASTATIN 20 MG TABLET PO SCH (19:33)
--- NOTE | 2023-06-22 19:36 | OPERATIVE REPORT ---
DATE OF SERVICE: 06/22/2023 ATTENDING PRIMARY CARE PHYSICIAN: Melonie Estes DO PREOPERATIVE DIAGNOSIS: Persistent symptomatic anemia. POSTOPERATIVE DIAGNOSES: Reflux esophagitis, Himrod grade B, postsurgical changes, likely consistent with a surgeries similar to a vertical banded gastroplasty. The gastric pouch is intact with significant gastritis. No active bleeding. The pouch is widely patent to the remainder of the stomach, moderate gastritis of the antrum. No distal obstructions. Chronic stage III external and internal hemorrhoids. PROCEDURE: EGD with biopsy, colonoscopy. SURGEON: Femi Yu MD ANESTHESIA: Monitored anesthesia care. ESTIMATED BLOOD LOSS: Minimal. FINDINGS: Reflux esophagitis, Himrod grade B, postsurgical changes, likely consistent with a surgeries similar to a vertical banded gastroplasty. The gastric pouch is intact with significant gastritis. No active bleeding. The pouch is widely patent to the remainder of the stomach, moderate gastritis of the antrum. No distal obstructions. Chronic stage III external and internal hemorrhoids. DISPOSITION: The patient tolerated the procedure well. INDICATIONS: The patient is a 77-year-old female who has had a longstanding history of issues with anemia, which have become symptomatic. She reports that this started a few years ago when she had developed atrial fibrillation and underwent a cardiac ablation procedure and was on anticoagulation. She states that she has been admitted two other times due to significant anemia and has also been found to have a hemoglobin as low as 5. She again developed weakness, shortness of breath and was found to have a hemoglobin of 7.0. The patient does see Hematology for her anemia and does get iron infusions and does take oral iron as well. She reports that she has had hemorrhoidal flareups and has noted a small amount of red blood per rectum; however, also states dark stools; however, this has been dark for years, likely secondary to the iron. She report also reports that she did have a bariatric surgical procedure in the , which sounds to be similar to a vertical banded gastroplasty, which was popular on the [facility] in the and . DESCRIPTION OF PROCEDURE: The patient was brought to the endoscopy suite and laid in the left lateral decubitus position. After adequate IV pain sedative medications and monitored anesthesia care, the mouthpiece was applied. The endoscope was placed in the mouth, visualizing the pharynx and hypopharyngeal region. Vocal cords, epiglottis and vallecula identified and appeared to be normal. The endoscope was then gently intubated in the esophageal opening and esophagus insufflated. The endoscope was then advanced through the first, second, third portions of esophagus at the level of the GE junction, reflux esophagitis, Himrod grade B identified. No ulcers or strictures identified. A biopsy was taken with forceps with visualization of good hemostasis. The endoscope was then advanced and what appeared to be a gastric pouch, which appeared to be of normal size. There was a significant gastritis within the gastric pouch. There also did appear to be a nonabsorbable suture identified within the gastric pouch as well. There were still medications within the gastric pouch, which may indicate some level of decreased transit. A biopsy was taken of the gastric pouch with visualization of good hemostasis. The opening to the remainder of the stomach was widely patent and the endoscope was advanced through this region. On the superior aspect of the stomach, which is what appeared to be a staple line. There was moderate gastritis noted more towards the stomach antrum, however, no ulcers, polyps, or any neoplasms as well as no active bleeding sources. Biopsy was taken of the antrum with visualization of good hemostasis. The endoscope was then advanced to the pylorus and the first and second portion of the duodenum, which appeared normal with no distal obstructions. The endoscope was slowly withdrawn while taking a second look and suctioning of residual air with no additional findings. The endoscope was slowly withdrawn while taking a second look and suctioning of residual air with no additional findings. A digital rectal examination was performed which did reveal significant chronic stage III external and internal hemorrhoids, which were reducible; however, did come back out. There were no ulcerations or any active bleeding identified. Normal sphincter tone was felt and there were no palpable masses. The endoscope was then intubated into the anus, rectum gently insufflated. The endoscope was then advanced through the valves of Smith of the rectum with no polyps or any neoplasms identified. Through the sigmoid colon, no diverticulosis identified. The endoscope was then advanced through the remainder of the descending, transverse and ascending colon to the cecum, which were normal. There were no mucosal inflammatory changes, polyps, neoplasms or any active bleeding sources. The endoscope was then slowly withdrawn while taking a second look and suctioning of residual air with no additional findings. The patient tolerated the procedure well. 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 We feel that the inflow may be potentially due to decreased transit as well as increased acid production as well as the mere fact that bariatric surgery is an acidogenic procedue and this area likely becomes inflamed and does loose small amounts of blood on an intermittent basis especially on anticoagulation. We will recommend the necessary lifestyle and dietary accommodation including small and more frequent meals, avoidance of eating at night as well as head elevation while lying supine. She also needs to avoid caffeinated beverages, spicy, greasy and acidic foods. 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 for the next 2 weeks. She also does have a stage III hemorrhoids and we will recommend a high-fiber diet with incorporation of a fiber supplement, which should equal or exceed 25 grams daily as well as significant amounts of water to promote soft consistency stools on a daily basis and prevent any pressure or trauma to the hemorrhoidal plexus, which may also cause intermittent bleeding. She does not have a family history of colon cancer and if she is asymptomatic from a colon standpoint, she does not need another colonoscopy for another 10 years; however, sooner if she again becomes symptomatic. CC: Dr. Handy ? requested, unable to deliver. Job ID: [id number] DocumentID: [id number] Dictated Date: 06/22/2023 12:17:35 Litigator Date: 06/22/2023 19:35:00 Dictated By: FEMI YU MD MTDD
[2023-06-23] VITALS: BP 105/55
[2023-06-23 04:00] VITALS: BP 110/67
[2023-06-23 05:12] LABS: BASOPHILS % (AUTO) 1 % (0-10); EOSINOPHILS # (AUTO) 0.2 10^3/uL (0.0-0.3); EOSINOPHILS % (AUTO) 5 % (0-10); HEMATOCRIT 27 % (35-52); HEMOGLOBIN 8.2 g/dL (11.5-16.0); LYMPHOCYTES # (AUTO) 0.9 10^3/uL (1.0-4.0); LYMPHOCYTES % (AUTO) 20 % (12-44); MEAN CORPUSCULAR HEMOGLOBIN 31 pg (25-34); MEAN CORPUSCULAR HGB CONC 31 g/dL (32-36); MEAN CORPUSCULAR VOLUME 101 fL (80-99); MEAN PLATELET VOLUME 9.4 fL (9.0-12.2); MONOCYTES # (AUTO) 0.5 10^3/uL (0.0-1.0); MONOCYTES % (AUTO) 10 % (0-12); NEUTROPHILS # (AUTO) 2.9 10^3/uL (1.8-7.8); NEUTROPHILS % (AUTO) 65 % (42-75); PLATELET COUNT 168 10^3/uL (130-400); WHITE BLOOD COUNT 4.5 10^3/uL (4.3-11.0)
[2023-06-23 05:19] LABS: ALBUMIN 3.4 GM/DL (3.2-4.5)
[2023-06-23 05:20] LABS: POTASSIUM 3.5 MMOL/L (3.6-5.0)
[2023-06-23 05:21] LABS: CALCIUM 8.7 MG/DL (8.5-10.1)
[2023-06-23 05:22] LABS: TOTAL PROTEIN 5.6 GM/DL (6.4-8.2)
[2023-06-23 05:24] LABS: BILIRUBIN,TOTAL 0.7 MG/DL (0.1-1.0)
[2023-06-23 05:26] LABS: CREATININE SERUM 1.02 MG/DL (0.60-1.30)
[2023-06-23] MEDS: LEVOTHYROXINE 112 MCG TABLET PO SCH (06:13)
[2023-06-23] MEDS: POTASSIUM CHLORIDE 10 MEQ TABLET PO SCH (06:13)
--- NOTE | 2023-06-23 06:22 | Progress Note ---
Subjective Date Seen by a Provider: Jun 23, 2023 Time Seen by a Provider: 11:00 Objective Exam Last Set of Vital Signs Vital Signs Date Time Temp Pulse Resp B/P (MAP) Pulse Ox O2 Delivery O2 Flow Rate FiO2 06/23/23 04:00 36.2 82 16 110/67 (81) 96 Nasal Cannula 2.00 Capillary Refill : I&O Intake and Output 06/23/23 00:00 Intake Total 1450 ml Balance 1450 ml Intake Oral 950 ml IV Total 500 ml # Voids 9 # Bowel Movements 6 Results Lab Laboratory Tests 06/23/23 05:00: White Blood Count 4.5, Red Blood Count 2.63L, Hemoglobin 8.2L, Hematocrit 27L, Mean Corpuscular Volume 101H, Mean Corpuscular Hemoglobin 31, Mean Corpuscular Hemoglobin Concent 31L, Red Cell Distribution Width 18.7H, Platelet Count 168, Mean Platelet Volume 9.4, Immature Granulocyte % (Auto) 0, Neutrophils (%) (Auto) 65, Lymphocytes (%) (Auto) 20, Monocytes (%) (Auto) 10, Eosinophils (%) (Auto) 5, Basophils (%) (Auto) 1, Neutrophils # (Auto) 2.9, Lymphocytes # (Auto) 0.9L, Monocytes # (Auto) 0.5, Eosinophils # (Auto) 0.2, Basophils # (Auto) 0.0, Immature Granulocyte # (Auto) 0.0, Sodium Level 143, Potassium Level 3.5L, Chloride Level 102, Carbon Dioxide Level 34H, Anion Gap 7, Blood Urea Nitrogen 18, Creatinine 1.02, Estimat Glomerular Filtration Rate 57, BUN/Creatinine Ratio 18, Glucose Level 95, Calcium Level 8.7, Corrected Calcium 9.2, Total Bilirubin 0.7, Aspartate Amino Transf (AST/SGOT) 21, Alanine Aminotransferase (ALT/SGPT) 10, Alkaline Phosphatase 89, Total Protein 5.6L, Albumin 3.4 Assessment/Plan Assessment/Plan Assess & Plan/Chief Complaint GI bleed with symptomatic anemia requiring iron infusions and transfusions > Hgb 8.5 this morning > has received two units of blood since admission > scope per Dr. Yu > continue to monitor H+H and transfuse further as necessary > hold aspirin and xarelto - Hypertension > BP stable this morning at 120/59 (MAP 79) > continue to monitor - Coronary artery disease - Atrial fibrillation - COPD O2 dependent due to chronic respiratory failure Plan: Supportive care Monitor hemoglobin Iron infusion Clinical Quality Measures Admission Status Admission Dx Monitor hemoglobin EGD and colonoscopy We will move to fourth floor DVT/VTE Risk/Contraindication: Contraindications-Pharm: Pt at low risk Other: AYUSH FAYE DO Jun 23, 2023 06:21
[2023-06-23 08:00] VITALS: BP 131/74
[2023-06-23] MEDS: BUDESONIDE IH SCH (08:21)
[2023-06-23] MEDS: FORMOTEROL IH SCH (08:21)
[2023-06-23] MEDS: ALLOPURINOL 300 MG TABLET PO SCH (08:27)
[2023-06-23] MEDS: NYSTATIN ORAL SUSP 5 ML UDC PO SCH (08:27)
[2023-06-23] MEDS: FUROSEMIDE 40 MG TABLET PO SCH (08:28)
[2023-06-23] MEDS: MAGNESIUM OXIDE 400 MG TABLET PO SCH (08:28)
[2023-06-23] MEDS: SENNOSIDES 8.6 MG TABLET PO SCH (08:28)
[2023-06-23] MEDS: PANTOPRAZOLE 40 MG TABLET PO SCH (08:28)
[2023-06-23] MEDS: VITAMIN D3 25 MCG (1,000 UNITS) TABLET PO SCH (08:28)
[2023-06-23] MEDS: DOCUSATE SODIUM 100 MG CAPSULE PO SCH (08:28)
[2023-06-23] MEDS: FOLIC ACID 1 MG TAB PO SCH (08:34)
--- NOTE | 2023-06-23 10:52 | Progress Note ---
Subjective Date Seen by a Provider: Jun 23, 2023 Time Seen by a Provider: 10:30 Subjective/Events-last exam Patient seen with Dr. Yu. Patient reports doing well. Denies any issues. Tolerating diet. Objective Exam Vital Signs Date Time Temp Pulse Resp B/P (MAP) Pulse Ox O2 Delivery O2 Flow Rate FiO2 06/23/23 08:00 36.3 82 19 131/74 (93) 97 Nasal Cannula 2.00 06/23/23 08:00 Nasal Cannula 2.00 06/23/23 04:00 36.2 82 16 110/67 (81) 96 Nasal Cannula 2.00 06/23/23 00:00 36.2 82 18 105/55 (72) 99 Room Air 2.00 06/22/23 19:50 Nasal Cannula 2.00 06/22/23 19:40 Nasal Cannula 2.00 06/22/23 19:14 36.3 80 18 119/75 (90) 100 Room Air 06/22/23 15:33 36.2 80 16 123/72 (89) 100 Nasal Cannula 2.00 06/22/23 12:45 36.2 80 18 128/76 (93) 99 Room Air 06/22/23 12:15 79 16 100 OxyMask 2.00 06/22/23 12:10 79 16 100 OxyMask 10.00 06/22/23 12:05 79 16 100 OxyMask 10.00 06/22/23 12:00 40 16 100 OxyMask 10.00 I & O 06/23/23 07:00 Intake Total 2760 ml Output Total 700 ml Balance 2060 ml Capillary Refill : General Appearance: No Apparent Distress, WD/WN Neck: Normal Inspection, Supple Respiratory: No Accessory Muscle Use, No Respiratory Distress Gastrointestinal: normal bowel sounds, non tender, soft Neurologic/Psychiatric: Alert, Oriented x3 Skin: Normal Color, Warm/Dry Results Lab Laboratory Tests 06/23/23 05:00: White Blood Count 4.5, Red Blood Count 2.63L, Hemoglobin 8.2L, Hematocrit 27L, Mean Corpuscular Volume 101H, Mean Corpuscular Hemoglobin 31, Mean Corpuscular Hemoglobin Concent 31L, Red Cell Distribution Width 18.7H, Platelet Count 168, Mean Platelet Volume 9.4, Immature Granulocyte % (Auto) 0, Neutrophils (%) (Auto) 65, Lymphocytes (%) (Auto) 20, Monocytes (%) (Auto) 10, Eosinophils (%) (Auto) 5, Basophils (%) (Auto) 1, Neutrophils # (Auto) 2.9, Lymphocytes # (Auto) 0.9L, Monocytes # (Auto) 0.5, Eosinophils # (Auto) 0.2, Basophils # (Auto) 0.0, Immature Granulocyte # (Auto) 0.0, Sodium Level 143, Potassium Level 3.5L, Chloride Level 102, Carbon Dioxide Level 34H, Anion Gap 7, Blood Urea Nitrogen 18, Creatinine 1.02, Estimat Glomerular Filtration Rate 57, BUN/Creatinine Ratio 18, Glucose Level 95, Calcium Level 8.7, Corrected Calcium 9.2, Total Bilirubin 0.7, Aspartate Amino Transf (AST/SGOT) 21, Alanine Aminotransferase (ALT/SGPT) 10, Alkaline Phosphatase 89, Total Protein 5.6L, Albumin 3.4 Assessment/Plan Assessment/Plan Assess & Plan/Chief Complaint A 77 year old female with hx of PUD, GERD, Anemia, blood per rectum S/P EGD/Colonoscopy on 06/22 - RE grade B, gastritis, stage III hemorrhoids VSS Proceed with the necessary lifestyle and dietary accommodation including small and more frequent meals, avoidance of eating at night as well as head elevation while lying supine. She also needs to avoid caffeinated beverages, spicy, greasy and acidic foods. Continue with protonix and carafate, high-fiber diet and plenty of fluids daily Ok to go home from surgical standpoint Clinical Quality Measures DVT/VTE Risk/Contraindication: Contraindications-Pharm: Pt at low risk Other: CACHORRO MERCEDES OUTSOLE CASER Jun 23, 2023 10:52
[2023-06-23] MEDS ORDERED: SUCR1TAB36 PO (11:48)
[2023-06-23] MEDS ORDERED: PANT40TA52 PO (11:48)
--- NOTE | 2023-06-23 11:49 | Discharge Summary ---
Diagnosis/Chief Complaint Date of Admission Jun 20, 2023 at 17:58 Date of Discharge Discharge Date: Jun 23, 2023 Discharge Diagnosis Severe symptomatic anemia from hematochezia- requiring 2 units of blood and IV iron infusion Pouch gastritis as source of bleed per EGD Hemorrhoid bleed per colonoscopy Recent cardiac surgery at [facility] implantation with Dr. Gutierres 04/15/23 CAD Angina Atrial fibrillation Chronic kidney disease Interstitial fibrosis on supplemental oxygen 20/05 Gout KU DC Dx: Anemia Angina pectoris (HCC) Arrhythmia Arthritis Atrial fibrillation (HCC) Bladder infection, chronic CAD (coronary artery disease) Carotid stenosis Chronic kidney disease COPD (chronic obstructive pulmonary disease) (HCC) Degenerative disc disease, lumbar Diastolic heart failure (HCC) Gout Heart attack (HCC) HLD (hyperlipidemia) HTN (hypertension) Hypothyroidism Intermittent claudication (HCC) Interstitial lung disease (HCC) Joint pain Kidney stones Multiple fractures Comment: pelvis, both femur, right clavicle,left shoulder, elbow, fracture ribs, finger from horseback riding Neuropathy On supplemental oxygen therapy Comment: 2 liters Persistent atrial fibrillation (HCC) Pneumonia Comment: multiple times; last 2014 Pneumothorax Comment: from stake into chest S/P CABG (coronary artery bypass graft) Scoliosis Spinal stenosis Unspecified cerebral artery occlusion with cerebral infarction Reason Hospital Visit Chief complaint: Severe symptomatic anemia with hematochezia HPI: This is a 77-year-old female clinic patient of [facility] who I directly admitted after I assessed her in the office after report of hematochezia and noted h emoglobin had decreased to 7.5 on labs the day before after 1 unit of blood given by Dr. Handy. Xarelto and aspirin will be held per cardiology. General surgery will be consulting for EGD and colonoscopy. Discharge Summary Discharge Physical Examination Allergies: Coded Allergies: Penicillins (Verified Allergy, Unknown, RASH, HAS HAD ROCEPHIN IN THE PAST W/O ISSUE, 09/27/16) clarithromycin (Verified Allergy, Unknown, 09/27/16) erythromycin base (Verified Allergy, Unknown, 09/27/16) fentanyl (Verified Allergy, Unknown, ITCHING, 06/21/23) levofloxacin (Verified Allergy, Unknown, 09/04/17) morphine (Verified Allergy, Unknown, itching, TAKES LORTAB AT HOME, 06/25/22) niacin (Verified Allergy, Unknown, HIVES, 06/21/23) Vitals & I&Os Vital Signs Date Time Temp Pulse Resp B/P (MAP) Pulse Ox O2 Delivery O2 Flow Rate FiO2 06/23/23 13:44 36.2 80 18 110/67 100 Nasal Cannula 2.00 General Appearance: Alert, Oriented X3, Cooperative Respiratory: Clear to Auscultation Cardiovascular: Regular Rate Psych/Mental Status: Mental Status NL Hospital Course Was the Problem List Reviewed?: Yes Patient had an uneventful hospital course after she was directly admitted from my clinic due to symptomatic anemia with hemoglobin of 7.5 and actively bleeding rectally. She received 2 units of blood during hospital stay. EGD and colonoscopy showed bleeding hemorrhoids and a pouch gastritis as source of blood loss. PPI and Carafate were initiated. She was given 2 iron infusions prior to discharge. She will follow-up with me in clinic. Labs (last 24 hrs) Laboratory Tests 06/20/23 18:38: White Blood Count 11.7H, Red Blood Count 2.17L, Hemoglobin 7.0L, Hematocrit 22L, Mean Corpuscular Volume 102H, Mean Corpuscular Hemoglobin 32, Mean Corpuscular Hemoglobin Concent 32, Red Cell Distribution Width 18.0H, Platelet Count 195, Mean Platelet Volume 9.3, Immature Granulocyte % (Auto) 1, Neutrophils (%) (Auto) 95H, Lymphocytes (%) (Auto) 3L, Monocytes (%) (Auto) 1, Eosinophils (%) (Auto) 0, Basophils (%) (Auto) 0, Neutrophils # (Auto) 11.1H, Lymphocytes # (Auto) 0.3L, Monocytes # (Auto) 0.2, Eosinophils # (Auto) 0.0, Basophils # (Auto) 0.0, Immature Granulocyte # (Auto) 0.1, Neutrophils % (Manual) 87, Lymphocytes % (Manual) 3, Band Neutrophils 10, Platelet Estimate ADEQUATE, Basophilic Stippling SLIGHT, Anisocytosis MODERATE, Macrocytosis SLIGHT, Sodium Level 140, Potassium Level 3.8, Chloride Level 103, Carbon Dioxide Level 27, Anion Gap 10, Blood Urea Nitrogen 18, Creatinine 0.99, Estimat Glomerular Filtration Rate 59, BUN/Creatinine Ratio 18, Glucose Level 137H, Calcium Level 9.1, Corrected Calcium 9.2, Iron Level 38, Total Bilirubin 0.5, Aspartate Amino Transf (AST/SGOT) 17, Alanine Aminotransferase (ALT/SGPT) 11, Alkaline Phosphatase 97, Total Protein 6.3L, Albumin 3.9, Vitamin B12 Level 1625H 06/21/23 02:22: White Blood Count 8.3, Red Blood Count 2.39L, Hemoglobin 7.5L, Hematocrit 23L, Mean Corpuscular Volume 98, Mean Corpuscular Hemoglobin 31, Mean Corpuscular Hemoglobin Concent 32, Red Cell Distribution Width 19.5H, Platelet Count 165, Mean Platelet Volume 9.6, Immature Granulocyte % (Auto) 1, Neutrophils (%) (Auto) 90H, Lymphocytes (%) (Auto) 6L, Monocytes (%) (Auto) 3, Eosinophils (%) (Auto) 0, Basophils (%) (Auto) 0, Neutrophils # (Auto) 7.5, Lymphocytes # (Auto) 0.5L, Monocytes # (Auto) 0.2, Eosinophils # (Auto) 0.0, Basophils # (Auto) 0.0, Immature Granulocyte # (Auto) 0.1, Sodium Level 138, Potassium Level 4.3, Chloride Level 100, Carbon Dioxide Level 28, Anion Gap 10, Blood Urea Nitrogen 18, Creatinine 0.94, Estimat Glomerular Filtration Rate 63, BUN/Creatinine Ratio 19, Glucose Level 119H, Calcium Level 8.7, Corrected Calcium 9.0, Total Bilirubin 0.8, Aspartate Amino Transf (AST/SGOT) 16, Alanine Aminotransferase (ALT/SGPT) 11, Alkaline Phosphatase 86, Total Protein 5.9L, Albumin 3.6 06/21/23 12:27: Hemoglobin 9.3#L, Hematocrit 29L 06/22/23 05:05: White Blood Count 7.2, Red Blood Count 2.78L, Hemoglobin 8.7L, Hematocrit 27L, Mean Corpuscular Volume 96, Mean Corpuscular Hemoglobin 31, Mean Corpuscular Hemoglobin Concent 33, Red Cell Distribution Width 19.2H, Platelet Count 184, Mean Platelet Volume 9.6, Immature Granulocyte % (Auto) 1, Neutrophils (%) (Auto) 72, Lymphocytes (%) (Auto) 17, Monocytes (%) (Auto) 8, Eosinophils (%) (Auto) 3, Basophils (%) (Auto) 1, Neutrophils # (Auto) 5.2, Lymphocytes # (Auto) 1.2, Monocytes # (Auto) 0.6, Eosinophils # (Auto) 0.2, Basophils # (Auto) 0.0, Immature Granulocyte # (Auto) 0.0, Sodium Level 143, Potassium Level 3.8, Chloride Level 100, Carbon Dioxide Level 34H, Anion Gap 9, Blood Urea Nitrogen 23H, Creatinine 1.23, Estimat Glomerular Filtration Rate 46, BUN/Creatinine Ratio 19, Glucose Level 94, Calcium Level 9.1, Corrected Calcium 9.3, Total Bilirubin 0.8, Aspartate Amino Transf (AST/SGOT) 21, Alanine Aminotransferase (ALT/SGPT) 12, Alkaline Phosphatase 84, Total Protein 6.1L, Albumin 3.8 06/23/23 05:00: White Blood Count 4.5, Red Blood Count 2.63L, Hemoglobin 8.2L, Hematocrit 27L, Mean Corpuscular Volume 101H, Mean Corpuscular Hemoglobin 31, Mean Corpuscular Hemoglobin Concent 31L, Red Cell Distribution Width 18.7H, Platelet Count 168, Mean Platelet Volume 9.4, Immature Granulocyte % (Auto) 0, Neutrophils (%) (Auto) 65, Lymphocytes (%) (Auto) 20, Monocytes (%) (Auto) 10, Eosinophils (%) (Auto) 5, Basophils (%) (Auto) 1, Neutrophils # (Auto) 2.9, Lymphocytes # (Auto) 0.9L, Monocytes # (Auto) 0.5, Eosinophils # (Auto) 0.2, Basophils # (Auto) 0.0, Immature Granulocyte # (Auto) 0.0, Sodium Level 143, Potassium Level 3.5L, Chloride Level 102, Carbon Dioxide Level 34H, Anion Gap 7, Blood Urea Nitrogen 18, Creatinine 1.02, Estimat Glomerular Filtration Rate 57, BUN/Creatinine Ratio 18, Glucose Level 95, Calcium Level 8.7, Corrected Calcium 9.2, Total Bilirubin 0.7, Aspartate Amino Transf (AST/SGOT) 21, Alanine Aminotransferase (ALT/SGPT) 10, Alkaline Phosphatase 89, Total Protein 5.6L, Albumin 3.4 Pending Labs Laboratory Tests 06/20/23 18:38: White Blood Count 11.7, Red Blood Count 2.17, Hemoglobin 7.0, Hematocrit 22, Mean Corpuscular Volume 102, Mean Corpuscular Hemoglobin 32, Mean Corpuscular Hemoglobin Concent 32, Red Cell Distribution Width 18.0, Platelet Count 195, Mean Platelet Volume 9.3, Immature Granulocyte % (Auto) 1, Neutrophils (%) (Auto) 95, Lymphocytes (%) (Auto) 3, Monocytes (%) (Auto) 1, Eosinophils (%) (Auto) 0, Basophils (%) (Auto) 0, Neutrophils # (Auto) 11.1, Lymphocytes # (Auto) 0.3, Monocytes # (Auto) 0.2, Eosinophils # (Auto) 0.0, Basophils # (Auto) 0.0, Immature Granulocyte # (Auto) 0.1, Neutrophils % (Manual) 87, Lymphocytes % (Manual) 3, Band Neutrophils 10, Platelet Estimate ADEQUATE, Basophilic Stippling SLIGHT, Anisocytosis MODERATE, Macrocytosis SLIGHT, Sodium Level 140, Potassium Level 3.8, Chloride Level 103, Carbon Dioxide Level 27, Anion Gap 10, Blood Urea Nitrogen 18, Creatinine 0.99, Estimat Glomerular Filtration Rate 59, BUN/Creatinine Ratio 18, Glucose Level 137, Calcium Level 9.1, Corrected Calcium 9.2, Iron Level 38, Total Bilirubin 0.5, Aspartate Amino Transf (AST/SGOT) 17, Alanine Aminotransferase (ALT/SGPT) 11, Alkaline Phosphatase 97, Total Protein 6.3, Albumin 3.9, Vitamin B12 Level 1625 06/21/23 02:22: White Blood Count 8.3, Red Blood Count 2.39, Hemoglobin 7.5, Hematocrit 23, Mean Corpuscular Volume 98, Mean Corpuscular Hemoglobin 31, Mean Corpuscular Hemoglobin Concent 32, Red Cell Distribution Width 19.5, Platelet Count 165, Mean Platelet Volume 9.6, Immature Granulocyte % (Auto) 1, Neutrophils (%) (Auto) 90, Lymphocytes (%) (Auto) 6, Monocytes (%) (Auto) 3, Eosinophils (%) (Auto) 0, Basophils (%) (Auto) 0, Neutrophils # (Auto) 7.5, Lymphocytes # (Auto) 0.5, Monocytes # (Auto) 0.2, Eosinophils # (Auto) 0.0, Basophils # (Auto) 0.0, Immature Granulocyte # (Auto) 0.1, Sodium Level 138, Potassium Level 4.3, Chloride Level 100, Carbon Dioxide Level 28, Anion Gap 10, Blood Urea Nitrogen 18, Creatinine 0.94, Estimat Glomerular Filtration Rate 63, BUN/Creatinine Ratio 19, Glucose Level 119, Calcium Level 8.7, Corrected Calcium 9.0, Total Bilirubin 0.8, Aspartate Amino Transf (AST/SGOT) 16, Alanine Aminotransferase (ALT/SGPT) 11, Alkaline Phosphatase 86, Total Protein 5.9, Albumin 3.6 06/21/23 12:27: Hemoglobin 9.3, Hematocrit 29 06/22/23 05:05: White Blood Count 7.2, Red Blood Count 2.78, Hemoglobin 8.7, Hematocrit 27, Mean Corpuscular Volume 96, Mean Corpuscular Hemoglobin 31, Mean Corpuscular Hemoglobin Concent 33, Red Cell Distribution Width 19.2, Platelet Count 184, Mean Platelet Volume 9.6, Immature Granulocyte % (Auto) 1, Neutrophils (%) (Auto) 72, Lymphocytes (%) (Auto) 17, Monocytes (%) (Auto) 8, Eosinophils (%) (Auto) 3, Basophils (%) (Auto) 1, Neutrophils # (Auto) 5.2, Lymphocytes # (Auto) 1.2, Monocytes # (Auto) 0.6, Eosinophils # (Auto) 0.2, Basophils # (Auto) 0.0, Immature Granulocyte # (Auto) 0.0, Sodium Level 143, Potassium Level 3.8, Chlo ride Level 100, Carbon Dioxide Level 34, Anion Gap 9, Blood Urea Nitrogen 23, Creatinine 1.23, Estimat Glomerular Filtration Rate 46, BUN/Creatinine Ratio 19, Glucose Level 94, Calcium Level 9.1, Corrected Calcium 9.3, Total Bilirubin 0.8, Aspartate Amino Transf (AST/SGOT) 21, Alanine Aminotransferase (ALT/SGPT) 12, Alkaline Phosphatase 84, Total Protein 6.1, Albumin 3.8 06/23/23 05:00: White Blood Count 4.5, Red Blood Count 2.63, Hemoglobin 8.2, Hematocrit 27, Mean Corpuscular Volume 101, Mean Corpuscular Hemoglobin 31, Mean Corpuscular Hemoglobin Concent 31, Red Cell Distribution Width 18.7, Platelet Count 168, Mean Platelet Volume 9.4, Immature Granulocyte % (Auto) 0, Neutrophils (%) (Auto) 65, Lymphocytes (%) (Auto) 20, Monocytes (%) (Auto) 10, Eosinophils (%) (Auto) 5, Basophils (%) (Auto) 1, Neutrophils # (Auto) 2.9, Lymphocytes # (Auto) 0.9, Monocytes # (Auto) 0.5, Eosinophils # (Auto) 0.2, Basophils # (Auto) 0.0, Immature Granulocyte # (Auto) 0.0, Sodium Level 143, Potassium Level 3.5, Chloride Level 102, Carbon Dioxide Level 34, Anion Gap 7, Blood Urea Nitrogen 18, Creatinine 1.02, Estimat Glomerular Filtration Rate 57, BUN/Creatinine Ratio 18, Glucose Level 95, Calcium Level 8.7, Corrected Calcium 9.2, Total Bilirubin 0.7, Aspartate Amino Transf (AST/SGOT) 21, Alanine Aminotransferase (ALT/SGPT) 10, Alkaline Phosphatase 89, Total Protein 5.6, Albumin 3.4 Discharge Home Medications: Active Scripts Active Carafate (Sucralfate) 1 Gram Tablet 1 Gm PO BID Pantoprazole Sodium 40 Mg Tablet.dr 40 Mg PO BID Reported Ferrous Sulfate 325 Mg (65 Mg Iron) Tablet 325 Mg PO HS Vitamin D3 (Cholecalciferol (Vitamin D3)) 50 Mcg (2000 Unit) Capsule 50 Mcg PO DAILY Folic Acid 1 Mg Tablet 1 Mg PO DAILY Nystatin 100,000 Unit/Ml Oral.susp 4 Ml PO BID USES AFTER SYMBICORT SWISH AND SWALLOW Hydrocodone-Acetamin 10-325 mg (Hydrocodone/Acetaminophen) 10 Mg-325 Mg Tablet 1 Each PO DAILY PRN Potassium Chloride 10 Meq Capsule.er 10 Meq PO DAILY Cymbalta (Duloxetine HCl) 30 Mg Capsule.dr 30 Mg PO HS Levothyroxine Sodium 112 Mcg Tablet 112 Mcg PO DAILY Lasix (Furosemide) 40 Mg Tablet 40 Mg PO DAILY Magnesium (Magnesium Oxide) 400 Mg Tablet 400 Mg PO DAILY Symbicort 160-4.5 Mcg Inhaler (Budesonide/Formoterol Fumarate) 10.2 Gm Hfa.aer.ad 2 Puff IH BID Crestor (Rosuvastatin Calcium) 20 Mg Tablet 20 Mg PO HS Tylenol Extra Strength (Acetaminophen) 500 Mg Tablet 1,000 Mg PO Q8H PRN TAKES 2 (500MG) TABLETS Ventolin Hfa (Albuterol Sulfate) 90 Mcg Hfa.aer.ad 2 Puff IH Q4H PRN Montelukast Sodium 10 Mg Tablet 10 Mg PO HS Allopurinol 300 Mg Tablet 300 Mg PO DAILY Instructions to patient/family Please see electronic discharge instructions given to patient. Clinical Quality Measures DVT/VTE Risk/Contraindication: Contraindications-Pharm: Pt at low risk Other: AYUSH FAYE DO Jun 23, 2023 11:49
[2023-06-23 12:00] VITALS: BP 110/67
[2023-06-23] MEDS ORDERED: IRON SUCROSE 200 MG/10 ML VIAL IV NR (12:00)
[2023-06-23 13:19] VITALS: BP 110/67
[2023-06-23 13:44] VITALS: BP 110/67
== END 2023-06-23 13:46 | disposition home or self-care (01) | DRG 378 ==
LOC: CSD 17:58 → 4TH 06-21 15:20
PROVIDERS: ADMIT Internal Medicine; ATTEND Internal Medicine
PROC: 0DJD8ZZ Inspection of Lower Intestinal Tract, Via Natural or Artificial Opening Endoscopic (ICD-10-PCS; 2023-06-22)
PROC: 0DB48ZX Excision of Esophagogastric Junction, Via Natural or Artificial Opening Endoscopic, Diagnostic (ICD-10-PCS; principal; 2023-06-22 11:00)
PROC: 0DB78ZX Excision of Stomach, Pylorus, Via Natural or Artificial Opening Endoscopic, Diagnostic (ICD-10-PCS; 2023-06-22 11:00)
DX: K29.61 Other gastritis with bleeding (principal); I13.0 Hypertensive heart and chronic kidney disease with heart failure and stage 1 through stage 4 chronic kidney disease, or unspecified chronic kidney disease; I48.19 Other persistent atrial fibrillation; I50.32 Chronic diastolic (congestive) heart failure; J84.9 Interstitial pulmonary disease, unspecified; J96.10 Chronic respiratory failure, unspecified whether with hypoxia or hypercapnia; I25.729 Atherosclerosis of autologous artery coronary artery bypass graft(s) with unspecified angina pectoris; D50.0 Iron deficiency anemia secondary to blood loss (chronic); K64.9 Unspecified hemorrhoids; I25.119 Atherosclerotic heart disease of native coronary artery with unspecified angina pectoris; K64.2 Third degree hemorrhoids; D63.8 Anemia in other chronic diseases classified elsewhere; I48.0 Paroxysmal atrial fibrillation; N18.9 Chronic kidney disease, unspecified; K21.00 Gastro-esophageal reflux disease with esophagitis, without bleeding; M10.9 Gout, unspecified; M19.90 Unspecified osteoarthritis, unspecified site; K21.9 Gastro-esophageal reflux disease without esophagitis; I27.20 Pulmonary hypertension, unspecified; J44.9 Chronic obstructive pulmonary disease, unspecified; E78.5 Hyperlipidemia, unspecified; G62.9 Polyneuropathy, unspecified; E03.9 Hypothyroidism, unspecified; Z79.01 Long term (current) use of anticoagulants; Z99.81 Dependence on supplemental oxygen
CPT/HCPCS: 36415; 80053; 82607; 83540; 85007; 85014; 85018; 85025; 85027; 86850; 86900; 86901; 86920; 94640